=== PATIENT | female | born 1950 | race Caucasian/White ===

== ENCOUNTER → 2017-10-11 07:14 | Outpatient (CLI) | payer MEDICARE, SELFPAY ==
[2017-10-11 09:01] LABS: T4 Free Direct 1.49 ng/dL (0.76-1.46); Thyroid Stim Hormone (TSH) 1.59 uIU/mL (0.358-3.74)
[2017-10-12 10:08] LABS: T3 Total - Triiodothyronine 1.16 ng/mL (0.6-1.81)
== END ==
PROVIDERS: Family Provider Family Medicine; PCP Family Medicine; Visit Provider Family Medicine
DX: E05.00 Thyrotoxicosis with diffuse goiter without thyrotoxic crisis or storm (principal)
CPT/HCPCS: 36415; 84439; 84443; 84480

== ENCOUNTER → 2017-10-26 16:38 | Outpatient (CLI) | payer MEDICARE, SELFPAY ==
[2017-10-26 17:26] LABS: Absolute Neutrophil Count 2.4 X10^3/uL (2.0-7.7); Basophil# 0.04 X10^3/uL; Basophil% 0.7 % (0-1); Eosinophil# 0.13 X10^3/uL; Eosinophils% 2.3 % (0-5); Hematocrit 38.4 % (37-47); Hemoglobin 12.9 g/dl (12.0-15.0); Lymphocyte % 43.2 % (19-41); Mean Corp Hgb Conc 33.6 g/gl (32-36); Mean Corpuscular Hgb 30.6 pg (27.0-32.0); Mean Platelet Vol. 10.4 fl (6.2-12.0); Monocyte# 0.62 X10^3/uL; Monocyte% 11.2 % (0-10); Neutrophil # 2.36 X10^3/uL (2.7-7.7); Neutrophil % 42.6 % (47-70); POSITIVE COUNT NO; POSITIVE DIFFERENTIAL NO; POSITIVE MORPHOLOGY NO; Platelet Count 240 K/mm3 (150-450); RBC Distribution Width CV 11.8 % (11.6-14.6); RBC Distribution Width SD 38.4 fl (35.1-43.9); Red Blood Count 4.22 M/mm3 (4.2-5.4); White Blood Count 5.6 K/mm3 (4.4-11.0)
[2017-10-26 17:36] LABS: Erythrocyte Sedimentation Rate 9 mm/hr (0-30)
[2017-10-26 18:01] LABS: Vitamin D,25 Hydroxy 38.5 ng/mL (29.95-100.01)
[2017-10-26 18:19] LABS: ALB/GLOB Ratio 1.1 RATIO (0.9-2.4); AST(SGOT) 20 U/L (15-37); Alanine Aminotransfer ALT/SGPT 15 U/L (13-56); Albumin, Serum 3.8 g/dL (3.2-5.0); Alkaline Phosphatase 82 U/L (45-117); Anion Gap 9 (5-15); BUN 20 mg/dL (7-18); BUN/Creat Ratio 27.7 RATIO (10-20); CPK Total, Creatine Kinase 96 U/L (26-192); Calcium,Total 8.9 mg/dL (8.5-10.1); Chloride 107 mmol/L (98-107); Creatinine, Serum 0.72 mg/dL (0.55-1.02); EST Glomerular Filtration Rate 86 mL/min (>60); Est Glom Filt Rate - Afr Amer 104 mL/min (>60); Free T3 2.8 pg/mL (2.18-3.98); Globulin 3.6 g/dL (2.2-4.2); Glucose 83 mg/dL (74-106); Magnesium 2.1 mg/dL (1.6-2.6); Potassium 3.9 mmol/L (3.5-5.1); Protein, Total 7.4 g/dL (6.4-8.2); Sodium Level 139 mmol/L (136-145); T4 Free Direct 1.67 ng/dL (0.76-1.46); T4 Total, Thyroxin 15.1 ug/dL (4.8-13.9)
[2017-11-01 10:36] LABS: ANTINUCLEAR ANTIBODIES DIRECT Negative (Negative)
[2017-11-02 12:36] LABS: T3 Reverse 33.6 ng/dL (9.2-24.1)
== END ==
PROVIDERS: Visit Provider Family Medicine
DX: E05.00 Thyrotoxicosis with diffuse goiter without thyrotoxic crisis or storm (principal); R25.2 Cramp and spasm; R53.83 Other fatigue; R23.2 Flushing
CPT/HCPCS: 36415; 80053; 82306; 82550; 83735; 84436; 84439; 84443; 84480; 84481; 84482; 85025; 85652; 86038; 86225; 86235

== ENCOUNTER → 2018-08-07 10:10 | Outpatient (CLI) | payer MEDICARE, SELFPAY ==
[2018-08-07 12:46] LABS: Free T3 2.9 pg/mL (2.18-3.98); Thyroid Stim Hormone (TSH) 0.23 uIU/mL (0.358-3.74)
[2018-08-07 12:55] LABS: Color, Urine Straw (Yellow); Glucose, Dipstick Normal (Normal); Ketone-Dipstick Negative (Negative); Leukocyte Esterase-Dipstick 25 /ul (Negative); Nitrite-Dipstick Negative (Negative); Occult Blood-Urine 25 /ul (Negative); Protein-Dipstick Negative (Negative); Specific Gravity, Urine 1.005 (1.002-1.030); Urine Bilirubin Dipstick Negative (Negative); Urine Clarity Clear (Clear); Urine Urobilinogen Normal (Normal)
[2018-08-12 09:08] LABS: T3 Reverse 34.7 ng/dL (9.2-24.1)
== END ==
PROVIDERS: Family Provider Family Medicine; PCP Family Medicine; Visit Provider Family Medicine
DX: E03.9 Hypothyroidism, unspecified (principal); R30.0 Dysuria
CPT/HCPCS: 36415; 81002; 84439; 84443; 84481; 84482; 87077; 87086; 87088; 87186

== ENCOUNTER → 2018-11-04 | Outpatient (CLI) | payer MEDICARE, SELFPAY ==
[2018-11-04 17:59] LABS: Free T3 2.6 pg/mL (2.18-3.98); T4 Free Direct 1.65 ng/dL (0.76-1.46); Thyroid Stim Hormone (TSH) 0.08 uIU/mL (0.358-3.74)
[2018-11-10 13:37] LABS: T3 Reverse 36.9 ng/dL (9.2-24.1)
== END | disposition home or self-care (01) ==
PROVIDERS: Family Provider Family Medicine; PCP Family Medicine; Visit Provider Family Medicine
DX: E03.9 Hypothyroidism, unspecified (principal); Z86.39 Personal history of other endocrine, nutritional and metabolic disease
CPT/HCPCS: 36415; 84439; 84443; 84481; 84482

== ENCOUNTER → 2019-01-09 11:24 | Outpatient (CLI) | payer MEDICARE, SELFPAY ==
[2019-01-09 16:01] LABS: Free T3 2.3 pg/mL (2.18-3.98); T4 Free Direct 1.54 ng/dL (0.76-1.46); Thyroid Stim Hormone (TSH) 0.31 uIU/mL (0.358-3.74)
== END ==
LOC: LAB.FUTURE 11:25 → BFHLAB 06-09 10:56
PROVIDERS: Family Provider Family Medicine; PCP Family Medicine; Visit Provider Family Medicine
DX: E05.00 Thyrotoxicosis with diffuse goiter without thyrotoxic crisis or storm (principal)
CPT/HCPCS: 36415; 84439; 84443; 84481

== ENCOUNTER → 2019-03-21 10:42 | Outpatient (CLI) | payer MEDICARE, SELFPAY ==
[2019-03-21 13:06] LABS: Free T3 2.7 pg/mL (2.18-3.98); T4 Free Direct 1.45 ng/dL (0.76-1.46); Thyroid Stim Hormone (TSH) 1.17 uIU/mL (0.358-3.74)
== END ==
LOC: LAB.FUTURE 10:42 → BFHLAB 06-09 10:57
PROVIDERS: Family Provider Family Medicine; PCP Family Medicine; Visit Provider Family Medicine
DX: E05.00 Thyrotoxicosis with diffuse goiter without thyrotoxic crisis or storm (principal); E03.2 Hypothyroidism due to medicaments and other exogenous substances
CPT/HCPCS: 36415; 84439; 84443; 84481

== ENCOUNTER → 2019-06-19 10:41 | Outpatient (CLI) | payer MEDICARE, SELFPAY ==
[2019-06-19 13:34] LABS: ALB/GLOB Ratio 1.1 RATIO (0.9-2.4); AST(SGOT) 19 U/L (15-37); Alanine Aminotransfer ALT/SGPT 17 U/L (13-56); Alkaline Phosphatase 115 U/L (45-117); Anion Gap 7 (5-15); BUN 16 mg/dL (7-18); BUN/Creat Ratio 20.9 RATIO (10-20); Calcium,Total 9.7 mg/dL (8.5-10.1); Chloride 107 mmol/L (98-107); Creatinine, Serum 0.76 mg/dL (0.55-1.02); EST Glomerular Filtration Rate 80 mL/min (>60); Est Glom Filt Rate - Afr Amer 97 mL/min (>60); Free T3 2.5 pg/mL (2.18-3.98); Globulin 3.7 g/dL (2.2-4.2); Glucose 84 mg/dL (74-106); Magnesium 2.2 mg/dL (1.6-2.6); Potassium 3.7 mmol/L (3.5-5.1); Protein, Total 7.7 g/dL (6.4-8.2); Sodium Level 139 mmol/L (136-145); T4 Free Direct 1.62 ng/dL (0.76-1.46); Thyroid Stim Hormone (TSH) 1.36 uIU/mL (0.358-3.74)
[2019-06-24 16:17] LABS: T3 Reverse 30.2 ng/dL (9.2-24.1)
== END ==
PROVIDERS: Family Provider Family Medicine; PCP Family Medicine; Referring Provider Family Medicine; Visit Provider Family Medicine
DX: E03.9 Hypothyroidism, unspecified (principal); R25.2 Cramp and spasm; Z51.81 Encounter for therapeutic drug level monitoring
CPT/HCPCS: 36415; 80053; 83735; 84439; 84443; 84481; 84482

== ENCOUNTER → 2019-06-20 12:16 | Outpatient (CLI) | payer MEDICARE, SELFPAY ==
--- NOTE | 2019-06-20 12:19 | RAD_ITS ---
HISTORY: PAIN, NKI TECHNIQUE: Lumbar spine 7 views, including AP, bilateral oblique, coned-down lateral and lateral views of the lumbar spine in neutral, flexion and extension. Number of images including paperwork: 7 COMPARISON: None FINDINGS: VERTEBRAE: No acute fracture. VERTEBRAL ALIGNMENT: No traumatic subluxation. No evidence of instability on flexion and extension views. DISKS AND JOINTS: Disc heights are preserved. Facet arthropathy L3-S1. SOFT TISSUES: Vascular calcifications. RAD/L/S Spine Comp/w Bending Views IMPRESSION: No acute osseous abnormality. Facet arthropathy. at 0457 Reported and signed by: Ines Bowman MD Electronically Signed: Ines Bowman MD at 4:57 EST Tel , Service support ,
--- NOTE | 2019-06-20 12:20 | RAD_ITS ---
HISTORY: LEFT GROIN PAIN X1 MONTH, NKI ADDITIONAL HISTORY: None provided. TECHNIQUE: Left hip 2 views with AP pelvis Number of images including paperwork: 3 COMPARISON: None FINDINGS: BONES: No acute fracture. JOINTS: No subluxation. SOFT TISSUES: No distinct foreign body. RAD/HIP, UNI W/ Pelvis 2-3 Views IMPRESSION: No acute osseous abnormality. at 0348 Reported and signed by: Ines Bowman MD Electronically Signed: Ines Bowman MD at 3:48 EST Tel , Service support ,
== END ==
PROVIDERS: PCP Family Medicine; Referring Provider Family Medicine; Visit Provider Family Medicine
DX: M54.9 Dorsalgia, unspecified (principal); M25.552 Pain in left hip
CPT/HCPCS: 72114; 73502

== ENCOUNTER → 2019-11-10 09:54 | Outpatient (CLI) | payer MEDICARE, SELFPAY ==
[2019-11-10 12:30] LABS: Absolute Neutrophil Count 3.2 X10^3/uL (2.0-7.7); Basophil# 0.05 X10^3/uL; Basophil% 0.9 % (0-1); Eosinophil# 0.11 X10^3/uL; Hematocrit 41.3 % (37-47); Hemoglobin 13.7 g/dL (12.0-15.0); Lymphocyte % 30.7 % (19-41); Mean Corp Hgb Conc 33.2 g/dL (32-36); Mean Corpuscular Hgb 29.9 pg (27.0-32.0); Mean Corpuscular Volume 90.2 fL (81-99); Mean Platelet Vol. 9.5 fl (6.2-12.0); Monocyte# 0.51 X10^3/uL; Monocyte% 9.2 % (0-10); NRBC Flagged by Analyzer 0 % (0-5); Neutrophil # 3.15 X10^3/uL (2.7-7.7); Neutrophil % 56.8 % (47-70); Platelet Count 347 K/mm3 (150-450); RBC Distribution Width CV 11.7 % (11.6-14.6); RBC Distribution Width SD 37.9 fl (35.1-43.9); Red Blood Count 4.58 M/mm3 (4.2-5.4); White Blood Count 5.5 K/mm3 (4.4-11.0)
[2019-11-10 12:46] LABS: Vitamin B12 270 pg/mL (211-911)
[2019-11-10 12:47] LABS: ALB/GLOB Ratio 0.8 RATIO (0.9-2.4); AST(SGOT) 15 U/L (15-37); Alanine Aminotransfer ALT/SGPT 14 U/L (13-56); Albumin, Serum 3.4 g/dL (3.2-5.0); Alkaline Phosphatase 87 U/L (45-117); Anion Gap 7 (5-15); BUN 11 mg/dL (7-18); BUN/Creat Ratio 16.1 RATIO (10-20); Calcium,Total 9.1 mg/dL (8.5-10.1); Chloride 107 mmol/L (98-107); Creatinine, Serum 0.68 mg/dL (0.55-1.02); EST Glomerular Filtration Rate 91 mL/min (>60); Est Glom Filt Rate - Afr Amer 110 mL/min (>60); Free T3 2.3 pg/mL (2.18-3.98); Glucose 95 mg/dL (74-106); Magnesium 2.2 mg/dL (1.6-2.6); Potassium 3.8 mmol/L (3.5-5.1); Protein, Total 7.4 g/dL (6.4-8.2); Sodium Level 141 mmol/L (136-145); T4 Free Direct 1.58 ng/dL (0.76-1.46); Thyroid Stim Hormone (TSH) 0.54 uIU/mL (0.358-3.74)
== END ==
PROVIDERS: PCP Family Medicine; Visit Provider Family Medicine
DX: E05.00 Thyrotoxicosis with diffuse goiter without thyrotoxic crisis or storm (principal); E03.9 Hypothyroidism, unspecified; R25.2 Cramp and spasm; Z51.81 Encounter for therapeutic drug level monitoring
CPT/HCPCS: 36415; 80053; 82607; 83735; 84439; 84443; 84481; 84482; 85025

== ENCOUNTER 2020-12-28 12:14 | Observation (INO) | payer MEDICARE, SELFPAY ==
[2020-12-28] VITALS (17 sets, daily range): BP systolic 129–187; BP diastolic 71–105; PULSE 51–87; RESP 11–25; TEMP 36.1–37; O2SAT 94–100; BMI 25.3; BMI 24.9
--- NOTE | 2020-12-28 12:19 | CM.ED ---
DARWIN Note Referral Source: Stroke Alert Referral Reason: Stroke Alert SW responded to a stroke alert for patient. Patient's daughter was in the room with patient. Patient's daughter said that she is familiar with what is going as as I have worked in [employer]. Daughter said that patient had also retired from [employer]. SW offered emotional support to patient's daughter. Patient's daughter reports no needs. SW advised that this advertising writer remains available if needed. Plan: To be determined Lety CAMARA
--- NOTE | 2020-12-28 12:20 | EKG12_ITS ---
Test Reason : CVA Blood Pressure : / mmHG Vent. Rate : 056 BPM Atrial Rate : 056 BPM P-R Int : 166 ms QRS Dur : 100 ms QT Int : 456 ms P-R-T Axes : 047 006 014 degrees QTc Int : 440 ms Sinus bradycardia with sinus arrhythmia Otherwise normal ECG Confirmed by ALEXIS FRANKS, CORINNA ([id number]), desk editor UVALDO KRUSE ([id number]) on 12/30/2020 9:58:50 AM Referred By: FAYE Confirmed By:CORINNA ESPINOZA MD
--- NOTE | 2020-12-28 12:20 | RAD_ITS ---
STUDY: X-RAY CHEST REASON FOR EXAM: Female, 70 years old. Neuro deficit, acute, stroke suspected TECHNIQUE: Single AP portable view of the chest. COMPARISON: 02/20/2012 FINDINGS: The lungs are clear and expanded. There is no demonstrated pleural abnormality. Normal size heart. Normal mediastinum and ayaka. Normal visualized pulmonary arteries. Normal visualized aortic arch and descending thoracic aorta. Normal visualized thoracic spine. Normal visualized ribs, clavicles, and shoulders. There is no demonstrated abnormality of the visualized soft tissue structures of the upper abdomen. RAD/Chest 1 View IMPRESSION: Normal x-ray examination of the chest. Electronically Signed: Ever Singh MD at 14:22 EDT Tel , Service support ,
--- NOTE | 2020-12-28 12:20 | CT_ITS ---
We are attempting to reach an attending provider to discuss findings. An addendum with communication details will be sent when the communication is complete. STUDY: CT HEAD STROKE PROTOCOL W/O CONTRAST INJECTION REASON FOR EXAM: Female, 70 years old. Neuro deficit, acute, stroke suspected RADIATION DOSAGE (If Supplied By Facility): CTDIvol = ( ) mGy, DLP = ( ) mGycm TECHNIQUE: Transaxial CT imaging of the brain was performed without administration of intravenous contrast material. Individualized dose optimization techniques were used for this CT. COMPARISON: No relevant priors. FINDINGS: Normal soft tissue structures. Normal calvarium. There is mild cerebral atrophy with widening of the extra-axial spaces and ventricular dilatation. Normal white matter tracts of the cerebral hemispheres. Normal basal ganglia and thalami. Normal brainstem. Normal cerebellum. There is no intracranial hemorrhage. There are no findings of an acute ischemic infarction. Normal visualized paranasal sinuses. ASPECT score: CT/STROKE Brain/Head without Cont IMPRESSION: Chronic involutional changes of the brain. Electronically Signed: Ever Singh MD at 12:33 EDT Tel , Service support ,
--- NOTE | 2020-12-28 12:24 | CT_ITS ---
We are attempting to reach an attending provider to discuss findings. An addendum with communication details will be sent when the communication is complete. STUDY: CTA HEAD AND NECK WITH CONTRAST REASON FOR EXAM: Female, 70 years old. left arm weakness RADIATION DOSAGE (If Supplied By Facility): CTDIvol = ( 22.97 ) mGy, DLP = ( 654.01 ) mGycm TECHNIQUE: CT angiography was performed with a multi-detector CT scanner. Data acquisition was obtained from the skull base through the vertex following intravenous administration of IV 100mL Isovue-[id number]. MIP images were reconstructed from the axial data set. Post-processing of the angiographic images was performed, with multiplanar reformation and 3D reconstruction. Individualized dose optimization techniques were used for this CT. COMPARISON: No relevant priors. FINDINGS: Normal bilateral petrous carotid arteries. Normal right cavernous carotid artery with a normal supraclinoid bifurcation. Normal left cavernous carotid artery with a normal supraclinoid bifurcation. Normal right A1 segments of the anterior cerebral artery. Normal left A1 segments of the anterior cerebral artery. Normal intact anterior communicating artery (ACOM). Normal bilateral A2 segments of the anterior cerebral arteries. Normal right M1 and M2 segments of the middle cerebral arteries, with a normal M1 bifurcation. Normal left M1 and M2 segments of the middle cerebral arteries, with a normal M1 bifurcation. Normal right posterior communicating artery (PCOM). Normal left posterior communicating artery (PCOM). Normal bilateral vertebral arteries. Normal basilar artery with a normal basilar bifurcation. The visualized bilateral superior cerebellar (SCA) arteries are normal. Normal bilateral P1, P2 and visualized P3 segments of the posterior cerebral arteries. There is no demonstrated aneurysm of the teller of Lerma. There is no demonstrated abnormality of the visualized brain. AORTIC ARCH: There is a bovine origin of the great vessels arising from the aortic arch with a common origin of the brachiocephalic and left common carotid artery. Normal origin of the left subclavian artery. Normal origins of the brachiocephalic, left common carotid, and left subclavian arteries. RIGHT CAROTID ARTERIES: Normal right common carotid artery (CCA). There is mild atherosclerotic plaque formation with minimal narrowing of the right carotid bulb. There is mild atherosclerotic plaque formation of the origin of the right internal carotid artery with less than 50% cross sectional diameter stenosis. Normal visualized cervical portion of the right internal carotid artery. Normal origin of the right external carotid artery (ECA). LEFT CAROTID ARTERIES: Normal left common carotid artery (CCA). There is mild atherosclerotic plaque formation with minimal narrowing of the left carotid bulb. There is mild atherosclerotic plaque formation of the origin of the left internal carotid artery with less than 50% cross sectional diameter stenosis. Normal visualized cervical portion of the left internal carotid artery. Normal origin of the left external carotid artery (ECA). VERTEBRAL ARTERIES: Normal bilateral vertebral arteries. CT/STROKE CTA Head AND Neck W/Con IMPRESSION: 1. Normal CTA Head with contrast. 2. Mild (40%) right carotid stenosis. 3. Mild (20%) left carotid stenosis. 4. Patent vertebral arteries bilaterally. 5. Bovine arch. Electronically Signed: Ever Singh MD at 12:56 EDT Tel , Service support ,
[2020-12-28 12:25] LABS: Bedside Glucose 110 mg/dL (70-110)
[2020-12-28 12:33] LABS: Absolute Lymphocyte Count 1.67 X10^3/uL (0.83-4.51); Absolute Neutrophil Count 2.3 X10^3/uL (2.0-7.7); Basophil# 0.05 X10^3/uL; Basophil% 1.1 % (0-1); Eosinophils% 2.1 % (0-5); Hematocrit 43.6 % (37-47); Hemoglobin 14.6 g/dL (12.0-15.0); Lymphocyte # 1.67 X10^3/ul (0.83-4.51); Lymphocyte % 35.2 % (19-41); Mean Corp Hgb Conc 33.5 g/dL (32-36); Mean Corpuscular Hgb 30.2 pg (27.0-32.0); Mean Corpuscular Volume 90.1 fL (81-99); Mean Platelet Vol. 9.7 fl (6.2-12.0); Monocyte# 0.63 X10^3/uL; Monocyte% 13.3 % (0-10); NRBC Flagged by Analyzer 0 % (0-5); Neutrophil % 48.3 % (47-70); Platelet Count 276 K/mm3 (150-450); RBC Distribution Width SD 39.6 fl (35.1-43.9); Red Blood Count 4.84 M/mm3 (4.2-5.4); White Blood Count 4.8 K/mm3 (4.4-11.0)
[2020-12-28 12:48] LABS: International Normalized Ratio 1.1; Prothrombin Time (Protime)PT. 13.7 SECONDS (11.7-14.9)
[2020-12-28 12:49] LABS: Partial Thromboplast Time 30.1 Seconds (24.1-36.2)
[2020-12-28 12:50] LABS: Anion Gap 7 (5-15); BUN 11 mg/dL (7-18); BUN/Creat Ratio 16.5 RATIO (10-20); Calcium,Total 9.3 mg/dL (8.5-10.1); Chloride 105 mmol/L (98-107); Creatinine, Serum 0.67 mg/dL (0.55-1.02); EST Glomerular Filtration Rate 93 mL/min (>60); Est Glom Filt Rate - Afr Amer 113 mL/min (>60); Estimated Creatinine Clearance 47.78 ml/min; Glucose 98 mg/dL (74-106); Potassium 3.6 mmol/L (3.5-5.1); Sodium Level 138 mmol/L (136-145); Troponin-I HS 78.4 pg/mL (3.0-53.7)
--- NOTE | 2020-12-28 12:51 | ED.RN ---
troponin 78.4. aware
[2020-12-28] MEDS: Aspirin 81 MG TAB.CHEW 324 MG PO (13:06)
--- NOTE | 2020-12-28 14:36 | ECHOD_ITS ---
Reason For Study: TIA/CVA Procedure This was a 2D Doppler, Color Flow transthoracic echocardiogram. Bubble study performed. Exam performed in department. Left Ventricle Normal LV size. Left ventricular systolic function is normal. The estimated ejection fraction is 65 %. No evidence for diastolic dysfunction. No regional wall motion abnormalities noted. Right Ventricle Normal RV size. Normal systolic function. Atria Normal left atrium. Normal right atrium. No doppler evidence for ASD. Bubble contrast study negative for right to left interatrial shunt. Mitral Valve There is no mitral annular calcification. Normal mitral valve. Trivial mitral valve insufficiency. Tricuspid Valve Normal tricuspid valve. Mild tricuspid valve insufficiency. Right ventricular systolic pressure estimated to be 28 mmHg. Aortic Valve Trisinus/trileaflet aortic valve. Mild focal aortic valve calcification. Pulmonic Valve The pulmonic valve is not well visualized. Great Vessels The aortic root is not well visualized. Pericardium/Pleural No pericardial effusion. Medication Performed a rapid injection of agitated mix of 9 cc saline and 1cc air to assess for atrial septal defect. MMode/2D Measurements & Calculations LVIDd: 4.2 cm IVSd: 0.88 cm LA dimension: 3.3 cm LVIDs: 3.1 cm LVPWd: 0.86 cm RVDd: 3.1 cm FS: 26.0 % LAV(MOD-bp): 35.5 ml LA A4 area: 11.9 cm2 RA A4 area: 10.5 cm2 LAV(MOD-bp) Indexed: 20.9 ml/m2 LAV(MOD-sp2): 43.7 ml LAV(MOD-sp4): 24.9 ml Time Measurements MV dec time: 0.38 sec Doppler Measurements & Calculations MV E max navin: 37.2 cm/sec Lat Peak E' Navin: 7.9 cm/sec Med Peak E' Navin: 5.4 cm/sec MV A max navin: 76.8 cm/sec E/E' lat: 4.7 E/E' med: 6.9 MV E/A: 0.48 MV V2 max: 78.2 cm/sec MV P1/2t max navin: 41.5 cm/sec Ao V2 max: 103.5 cm/sec MV max P.4 mmHg MV P1/2t: 143.9 msec Ao max P.3 mmHg MV V2 mean: 35.3 cm/sec MV dec slope: 84.5 cm/sec2 MV mean P.60 mmHg MV V2 VTI: 22.5 cm MVA(P1/2t): 1.5 cm2 LV V1 max: 84.4 cm/sec PA V2 max: 87.6 cm/sec TR max navin: 250.8 cm/sec LV V1 max P.8 mmHg TR max P.2 mmHg ECHO/Echo Complete Interpretation Summary Left ventricular systolic function is normal. The estimated ejection fraction is 65 %. Trivial mitral valve insufficiency. Mild tricuspid valve insufficiency. Mild focal aortic valve calcification. Right ventricular systolic pressure estimated to be 28 mmHg. No evidence for diastolic dysfunction. Bubble contrast study negative for right to left interatrial shunt. Ordering Physician: Taz Walsh Referring Physician: Leidy Beyer Performed By: Darío Dumont RCS
--- NOTE | 2020-12-28 14:36 | MRI_ITS ---
STUDY: MRI BRAIN WITHOUT CONTRAST REASON FOR EXAM: Female, 70 years old. CVA TECHNIQUE: Standardized multiplanar fat and water weighted pulse sequences were obtained. COMPARISON: CT earlier today FINDINGS: There is mild cerebral atrophy with widening of the extra-axial spaces and ventricular dilatation. There are a limited number of small white matter hyperintensities, distributed throughout the deep white matter tracts of the cerebral hemispheres, consistent with mild chronic white matter ischemic changes. There is no evidence for recent intracranial ischemia or other cause of cytotoxic edema on diffusion weighted imaging (DWI). Normal T2* images of the brain without demonstrated susceptibility artifact. There is no demonstrated hemosiderin stain. Normal bilateral basal ganglia. Normal thalami. There is no extra-axial fluid accumulation. Normal flow voids within the major intracranial circulation suggesting patency by spin echo criteria. Normal sella turcica, pituitary gland, infundibular stalk, optic chiasm and hypothalamus. Normal tectal plate and pineal gland. Normal midbrain, lebron and medulla. Normal cerebellum. Normal basal cisterns. Normal bilateral temporal bones. Normal bilateral internal auditory canals. No demonstrated orbital abnormality, within the constraints of a routine brain study. Normal visualized paranasal sinuses. Normal calvarium and skull base. Normal visualized soft tissue structures. Normal visualized upper cervical spine. MRI/Brain without Contrast IMPRESSION: Involutional changes of the brain, as described above. No acute infarct. Electronically Signed: Ever Singh MD at 16:48 EDT Tel , Service support ,
--- NOTE | 2020-12-28 14:40 | PCM.HP.STD ---
HPI - General General Date of Admission: 12/28/20 Date of Service: 12/28/20 Chief Complaint: Left-sided numbness HPI Narrative AMOL RUBIO, is a 70 F who presents with left-sided numbness. Patient symptoms started a day prior to her admission. Numbness was located in the as well as lower extremity. In addition to numbness patient did experience subjective weakness involving the left arm as well as pain. She also did complain of pain in the neck radiating to the jaw. In view of the persistent nature of her symptoms she presented to the ED subsequently admitted to monitored bed for further management [facility] Medical History (Updated 12/28/20 @ 15:[address] Taz Walsh MD) Arrhythmia Former smoker Hypothyroidism Home Medications clonazepam 12/28/20 [History Last Taken Unknown] ibuprofen 400 mg PO BID PRN 12/28/20 [History Last Taken 12/27/20] levothyroxine 12/28/20 [History Last Taken Unknown] levothyroxine 12/28/20 [History Last Taken Unknown] Allergy/AdvReac Type Severity Reaction Status Date / Time Penicillins [PCN] Allergy Swelling Verified 12/28/20 12:27 no significant family history Surgical History History of appendectomy History of hysterectomy Social History Smoking Status: Former smoker ROS ROS Narrative GENERAL: denies fever, chills, night sweats, HEENT: denies headache, sinus congestion, RESPIRATORY: denies cough, sputum production, CARDIAC: denies chest pain, palpitations, orthopnea, GASTROINTESTINAL: denies abdominal pain, nausea, GENITOURINARY: denies dysuria, urgency, frequency, EXTREMITY: denies swelling MUSCULOSKELETAL: denies current joint pain or tenderness NEUROLOGIC: numbness, weakness, HEMATOLOGIC: denies easy bruising and/or hemorrhage INTEGUMENT: denies rashes PSYCHIATRIC: denies suicidal or homicidal ideation Vital Signs Vital Signs Vital Signs: 12/28/20 12:15 12/28/20 12:20 12/28/20 12:25 Temperature 98.6 F Temperature Source Oral Pulse Rate 82 82 82 Respiratory Rate 16 16 16 Blood Pressure 182/91 H 182/91 H 182/91 H Blood Pressure Mean 121 121 121 Pulse Ox 98 98 98 Oxygen Delivery Method Room Air Room Air Room Air Oxygen Flow Rate (L/min) 12/28/20 12:50 12/28/20 13:23 12/28/20 13:33 Temperature Temperature Source Pulse Rate 76 61 60 Respiratory Rate 25 H 20 H 16 Blood Pressure 173/73 H 154/87 H 152/91 H Blood Pressure Mean 106 109 111 Pulse Ox 96 96 98 Oxygen Delivery Method Nasal Cannula Nasal Cannula Nasal Cannula Oxygen Flow Rate (L/min) 2 2 2 12/28/20 14:00 12/28/20 14:08 Temperature Temperature Source Pulse Rate 56 L 61 Respiratory Rate 11 L 16 Blood Pressure 169/90 H 169/90 H Blood Pressure Mean 116 116 Pulse Ox 96 95 Oxygen Delivery Method Nasal Cannula Nasal Cannula Oxygen Flow Rate (L/min) 2 2 Weight Weight: 69 kg Body Mass Index (BMI) 25.3 Physical Exam Narrative GENERAL: cooperative HEENT: Atraumatic; EYES; Anicteric, Normal Conjunctiva NECK; supple, normal thyroid, RESPIRATORY: Diminished to auscultation CARDIOVASCULAR: Regular S1 S2, GI: soft, normoactive bowel sounds, : No Renal angle tenderness; EXTREMITIES: No edema, no clubbing, MUSCULOSKELETAL: no muscle waisting NEURO: Awake; no lateralizing signs. SKIN: No Rash PSYCH; Flat affect Results Lab / Micro Data Result Diagrams: 12/28/20 12:20 12/28/20 12:20 Labs: Laboratory Results - last 24 hr 12/28/20 12:20: WBC 4.8, RBC 4.84, Hgb 14.6, Hct 43.6, MCV 90.1, MCH 30.2, MCHC 33.5, RDW Std Deviation 39.6, RDW Coeff of Ruthie 12.0, Plt Count 276, MPV 9.7, Immature Gran % (Auto) 0.000, Neut % (Auto) 48.3, Lymph % (Auto) 35.2, Victoria % (Auto) 13.3 H, Eos % (Auto) 2.1, Baso % (Auto) 1.1 H, Absolute Neuts (auto) 2.3, Absolute Lymphs (auto) 1.67, Nucleated RBC % 0 12/28/20 12:20: Sodium 138, Potassium 3.6, Chloride 105, Carbon Dioxide 26.0, Anion Gap 7, BUN 11, Creatinine 0.67, Estim Creat Clear Calc 47.78, Est GFR (MDRD) Af Amer 113, Est GFR (MDRD) Non-Af 93, BUN/Creatinine Ratio 16.5, Glucose 98, Calcium 9.3, Troponin I High Sens 78.4 H* 12/28/20 12:20: POC Glucose 110 12/28/20 12:30: PT 13.7, INR 1.1, APTT 30.[address] 12/28/20 12:20 IMPRESSION: Chronic involutional changes of the brain. Electronically Signed: Ever Singh MD at 12:33 EDT Tel , Service support , ADDENDUM: 12/28/20 1241 IMPRESSION: Chronic involutional changes of the brain. N.B. : The above Results were Read Back by Ever Singh MD to Vargas Robert DO, and understanding confirmed on 12/28/2020 12:34:44 (ET). Electronically Signed: Ever Singh MD at 12:33 EDT Tel , Service support , Chest X-Ray 12/28/20 12:20 IMPRESSION: Normal x-ray examination of the chest. Electronically Signed: Ever Singh MD at 14:22 EDT Tel , Service support , Head/Neck CTA 12/28/20 12:24 IMPRESSION: 1. Normal CTA Head with contrast. 2. Mild (40%) right carotid stenosis. 3. Mild (20%) left carotid stenosis. 4. Patent vertebral arteries bilaterally. 5. Bovine arch. Electronically Signed: Ever Singh MD at 12:56 EDT Tel , Service support , ADDENDUM: 12/28/20 1304 IMPRESSION: 1. Normal CTA Head with contrast. 2. Mild (40%) right carotid stenosis. 3. Mild (20%) left carotid stenosis. 4. Patent vertebral arteries bilaterally. 5. Bovine arch. N.B. : The above Results were Read Back by Ever Singh MD to Vargas Robert DO, and understanding confirmed on 12/28/2020 12:57:30 (ET). Electronically Signed: Ever Singh MD at 12:56 EDT Tel , Service support , Assessment & Plan Assessment/Plan (1) Arm paresthesia, left: (2) Hypothyroidism: PLAN: Patient is a 70-year-old female presented with paresthesias involving the left upper and lower extremity as well as neck pain 1. Left-sided paresthesias ?Patient has been admitted to monitored bed where she is currently undergoing evaluation for possible CVA. As part of a management patient was placed on every 4 neurochecks ordered MRI of the brain without contrast and a 2D echo ordered. If CVA is confirmed we will consult neurology 2. Left-sided neck pain with elevated troponin ?Patient has been admitted to a monitored bed subsequent evaluation with serial cardiac enzymes ordered as well as EKG 3. Hypothyroidism ?Patient is on levothyroxine did continue 4. Elevated blood pressure ?With a suspicion of possible CVA patient was not placed on any antihypertensives we will continue to monitor closely 5. DVT prophylaxis ?Lovenox Charges/Coding Visit Charges OBSV E&M: 43293 Initial observation care L3
--- NOTE | 2020-12-28 15:02 | EDS_ITS ---
HPI History of Present Illness Chief Complaint: Neuro S/Sx Narrative Narrative: 70-year-old female presenting for evaluation of left arm and leg weakness as well as numbness. Patient states onset of this was about 6 PM last evening. She states it started in her fingers of the left hand and over the course of the night and this morning it had increased to where she felt more numbness and weakness in the left arm and now is going into the left leg. She was at urgent care and when she stood up to try to be evaluated she fell into the physician because her leg was so weak. She was sent to the ED for evaluation. Patient denies head injury or LOC today. She is not on any blood thinners. Patient states she has no history of stroke or TIA. [facility] Medical History Arrhythmia Former smoker Hypothyroidism Home Medications clonazepam 1 - 2 mg PO QHS 12/28/20 [History Last Taken 12/27/20] ibuprofen 400 mg PO BID PRN 12/28/20 [History Last Taken 12/27/20] levothyroxine 50 mcg PO SANCHEZ 12/28/20 [History Last Taken 12/26/20] levothyroxine 88 mcg PO MOTUWETHFRSA 12/28/20 [History Last Taken 12/27/20] Allergy/AdvReac Type Severity Reaction Status Date / Time Penicillins [PCN] Allergy Swelling Verified 12/28/20 12:27 Surgical History History of appendectomy History of hysterectomy Social History Smoking Status: Former smoker ROS ROS ED Constitutional Constitutional ED: Denies chills, fever(s) or sweats Eyes Eyes: Denies blurry vision or change in vision ENT ENT ED: Denies ear pain, rhinorrhea or sore throat Cardiovascular Cardiovascular: Denies chest pain, palpitations or racing heartbeat Respiratory/Chest Respiratory/Chest: Denies cough, dyspnea or sputum Gastrointestinal Gastrointestinal: Denies abdominal pain, constipation, diarrhea or vomiting Genitourinary Genitourinary ED: Denies dysuria, hematuria or urinary frequency Musculoskeletal Musculoskeletal: Denies arthralgias, myalgias or neck pain Integumentary Denies abscess, Abrasions or rash Neurologic Neurologic: Reports headache(s), paresthesias, weakness and other Details: Headache with left arm and leg weakness and paresthesias Psychiatric Psychiatric: Denies anxiety, depression, suicidal ideation or suicidal thoughts Endocrine Endocrinology: Denies polydipsia or polyuria EXAM Physical Exam Const Vital Signs: 12/28/20 12:15 12/28/20 12:20 12/28/20 12:25 Temperature 98.6 F Temperature Source Oral Pulse Rate 82 82 82 Respiratory Rate 16 16 16 Blood Pressure 182/91 H 182/91 H 182/91 H Blood Pressure Mean 121 121 121 Pulse Ox 98 98 98 Oxygen Delivery Method Room Air Room Air Room Air Oxygen Flow Rate (L/min) 12/28/20 12:50 12/28/20 13:23 12/28/20 13:33 Temperature Temperature Source Pulse Rate 76 61 60 Respiratory Rate 25 H 20 H 16 Blood Pressure 173/73 H 154/87 H 152/91 H Blood Pressure Mean 106 109 111 Pulse Ox 96 96 98 Oxygen Delivery Method Nasal Cannula Nasal Cannula Nasal Cannula Oxygen Flow Rate (L/min) 2 2 2 12/28/20 14:00 12/28/20 14:08 Temperature Temperature Source Pulse Rate 56 L 61 Respiratory Rate 11 L 16 Blood Pressure 169/90 H 169/90 H Blood Pressure Mean 116 116 Pulse Ox 96 95 Oxygen Delivery Method Nasal Cannula Nasal Cannula Oxygen Flow Rate (L/min) 2 2 Negative for well nourished General Appearance ED: NAD HEENT Reports moist mucous membranes atraumatic Eyes PERRL and EOMs intact bilaterally Resp normal respiratory effort and clear to auscultation bilaterally Cardio Rate: regular rate Rhythm: regular rhythm GI normal to inspection, nondistended, normoactive bowel sounds Extremity normal to inspection General Extremety ED: Negative for deformity or tenderness General Extremity: Negative for deformity Neuro oriented x3 and CN's II-XII intact bilaterally Neuro Narrative: NIH equals 3 Sensorium / Orientation: alert Psych mental status grossly normal Skin Lesions: no lesions Rashes: no rashes STROKE Vital Signs/Narrative: Vital Signs Temp Pulse Resp BP Pulse Ox 12/28/20 14:08 61 16 169/90 H 95 12/28/20 14:00 56 L 11 L 169/90 H 96 12/28/20 13:33 60 16 152/91 H 98 12/28/20 13:23 61 20 H 154/87 H 96 12/28/20 12:50 76 25 H 173/73 H 96 12/28/20 12:25 82 16 182/91 H 98 12/28/20 12:20 82 16 182/91 H 98 12/28/20 12:15 98.6 F 82 16 182/91 H 98 MDM MDM MDM Narrative Medical decision making narrative: Patient evaluated on arrival for strokelike symptoms. She is having left arm and leg weakness however she is able to hold these up off of the bed. She states that her left shoulder/neck also hurts. This has been periodic pain. She denies any chest pain. Patient has decreased sensation in the left leg throughout as well as the left arm throughout. Cranial nerves appear to be intact. She does not have any sensory deficits in the neck and face. Her blood work was fairly unremarkable with exception of an elevated troponin at 78.4. I did reassess the patient to see if she had been having any chest pain at all she could describe to me with intermittent left- sided neck pain. She does not have lightheadedness or dizziness. Her EKG shows sinus bradycardia at [address] elevation, depression, dysrhythmia on my interpretation. Chest x-ray on my interpretation shows no acute cardiopulmonary process and the radiologist does agree. CT brain and CTA head and neck did not show any acute findings other than some carotid stenosis of 40% on the right and 20% on the left. Patient was given aspirin. [facility] did beam in and felt the patient was not a TPA candidate given the time of onset and the low NIH stroke scale score. Pulse findings were discussed with the patient and she is amenable to be admitted to the hospital for stroke work-up. I did discuss this with the hospitalist stated that the troponin was elevated however she has been denying chest pain but she does not have any EKG findings which suggest [place]. Patient admitted in stable condition. Impression: 1. Elevated troponin 2. CVA Lab Data Attestation: I reviewed the patient's lab results. Labs: Laboratory Results - last 24 hr 12/28/20 12/28/20 12/28/20 12:20 12:20 12:20 WBC 4.8 RBC 4.84 Hgb 14.6 Hct 43.6 MCV 90.1 MCH 30.2 MCHC 33.5 RDW Std Deviation 39.6 RDW Coeff of Ruthie 12.0 Plt Count 276 MPV 9.7 Immature Gran % (Auto) 0.000 Neut % (Auto) 48.3 Lymph % (Auto) 35.2 [place] % (Auto) 13.3 H Eos % (Auto) 2.1 Baso % (Auto) 1.1 H Absolute Neuts (auto) 2.3 Absolute Lymphs (auto) 1.67 Nucleated RBC % 0 PT INR APTT Sodium 138 Potassium 3.6 Chloride 105 Carbon Dioxide 26.0 Anion Gap 7 BUN 11 Creatinine 0.67 Estim Creat Clear Calc 47.78 Est GFR (MDRD) Af Amer 113 Est GFR (MDRD) Non-Af 93 BUN/Creatinine Ratio 16.5 Glucose 98 Calcium 9.3 Troponin I High Sens 78.4 H* POC Glucose 110 12/28/20 12:30 WBC RBC Hgb Hct MCV MCH MCHC RDW Std Deviation RDW Coeff of Ruthie Plt Count MPV Immature Gran % (Auto) Neut % (Auto) Lymph % (Auto) [place] % (Auto) Eos % (Auto) Baso % (Auto) Absolute Neuts (auto) Absolute Lymphs (auto) Nucleated RBC % PT 13.7 INR 1.1 APTT 30.1 Sodium Potassium Chloride Carbon Dioxide Anion Gap BUN Creatinine Estim Creat Clear Calc Est GFR (MDRD) Af Amer Est GFR (MDRD) Non-Af BUN/Creatinine Ratio Glucose Calcium Troponin I High Sens POC Glucose Radiography Diagnostic Testing: Radiology Impression Brain CT 12/28/20 12:20 IMPRESSION: Chronic involutional changes of the brain. Electronically Signed: Ever Singh MD at 12:33 EDT Tel , Service support , ADDENDUM: 12/28/20 1241 IMPRESSION: Chronic involutional changes of the brain. N.B. : The above Results were Read Back by Ever Singh MD to Vargas Robert DO, and understanding confirmed on 12/28/2020 12:34:44 (ET). Electronically Signed: Ever Singh MD at 12:33 EDT Tel , Service support , Chest X-Ray 12/28/20 12:20 IMPRESSION: Normal x-ray examination of the chest. Electronically Signed: Ever Singh MD at 14:22 EDT Tel , Service support , Head/Neck CTA 12/28/20 12:24 IMPRESSION: 1. Normal CTA Head with contrast. 2. Mild (40%) right carotid stenosis. 3. Mild (20%) left carotid stenosis. 4. Patent vertebral arteries bilaterally. 5. Bovine arch. Electronically Signed: Ever Singh MD at 12:56 EDT Tel , Service support , ADDENDUM: 12/28/20 1304 IMPRESSION: 1. Normal CTA Head with contrast. 2. Mild (40%) right carotid stenosis. 3. Mild (20%) left carotid stenosis. 4. Patent vertebral arteries bilaterally. 5. Bovine arch. N.B. : The above Results were Read Back by Ever Singh MD to Vargas Robert DO, and understanding confirmed on 12/28/2020 12:57:30 (ET). Electronically Signed: Ever Singh MD at 12:56 EDT Tel , Service support , Discharge Plan Triage Chief Complaint: Neuro S/Sx ED Provider: Chaim Robert Dx/Rx/DC Orders Primary Care Provider: Leidy Beyer
--- NOTE | 2020-12-28 15:04 | MRI_ITS ---
STUDY: MRI CERVICAL SPINE WITHOUT CONTRAST REASON FOR EXAM: Female, 70 years old. Cervical radiculopathy TECHNIQUE: Standardized fat and water weighted pulse sequences were obtained in the sagittal and axial planes. COMPARISON: None FINDINGS: Normal foramen magnum and brainstem-cervical cord junction. Normal craniovertebral junction. Normal anterior atlantoaxial articulation. Normal odontoid process. Normal cervical lordosis. Normal vertebral bodies and posterior osseous elements. C2-3: Normal endplates. Normal disc height, signal and morphology. Normal central canal and intervertebral neural foramina. C3-4: Normal endplates. Normal disc height, signal and morphology. Normal central canal and intervertebral neural foramina. C4-5: Mild broad disc osteophyte complex produces mild spinal stenosis and mild bilateral neural foraminal stenosis. C5-6: Mild broad disc osteophyte complex produces mild spinal stenosis but no neural foraminal stenosis. C6-7: Mild broad disc osteophyte complex produces mild spinal stenosis but no neural foraminal stenosis. C7-T1: Normal endplates. Normal disc height, signal and morphology. Normal central canal and intervertebral neural foramina. Normal cervical cord. Normal visualized soft tissue structures. MRI/Spine Cervical (Routine) IMPRESSION: Multilevel degenerative changes, as described above. Electronically Signed: Ever Singh MD at 16:50 EDT Tel , Service support ,
--- NOTE | 2020-12-28 16:29 | EKG12_ITS ---
Test Reason : ILLNESS Blood Pressure : / mmHG Vent. Rate : 051 BPM Atrial Rate : 051 BPM P-R Int : 178 ms QRS Dur : 098 ms QT Int : 474 ms P-R-T Axes : 049 024 013 degrees QTc Int : 436 ms Sinus bradycardia Otherwise normal ECG No previous ECGs available Confirmed by WARREN FRANKS, COLLIN ([id number]), online editor UVALDO KRUSE ([id number]) on 01/03/2021 10:39:49 AM Referred By: HOSP Confirmed By:KENNY KELLEY MD
[2020-12-28] MEDS: 0.9% Normal Saline 1,000 ML 125 ML IV (17:35)
[2020-12-28 17:47] LABS: AST(SGOT) 24 U/L (15-37); Alanine Aminotransfer ALT/SGPT 20 U/L (13-56); Albumin, Serum 3.9 g/dL (3.2-5.0); Alkaline Phosphatase 75 U/L (45-117); Bilirubin, Direct 0.19 mg/dL (0.00-0.30); Globulin 3.7 g/dL (2.2-4.2); Protein, Total 7.6 g/dL (6.4-8.2); Thyroid Stim Hormone (TSH) 1.03 uIU/mL (0.358-3.74); Troponin-I HS 78.9 pg/mL (3.0-53.7)
[2020-12-28] MEDS: hydroCHLOROthiazide 25 MG Tablet PO (18:18)
[2020-12-28] MEDS: amLODIPine 10 MG Tablet PO (18:18)
[2020-12-28] MEDS: Levothyroxine 88 MCG Tablet PO (18:18)
[2020-12-28 19:38] LABS: Troponin-I HS 75.9 pg/mL (3.0-53.7)
[2020-12-28] MEDS: clonazePAM 1 MG Tablet PO (21:54)
[2020-12-28] MEDS: hydrALAZINE 20 MG/ML Vial 10 MG IV (22:02)
[2020-12-28] MEDS: Acetaminophen 325 MG Tablet 650 MG PO (23:50)
--- NOTE | 2020-12-29 00:17 | NURSING ---
Called Bing Bejarano CNP regarding pt request to have pulse ox and Iv fluids Dc'd. orders received.
--- NOTE | 2020-12-29 02:42 | NURSING ---
Pt voiced c/o of restless legs states the dosage for her klonopin is not ordered correctly and she takes 2 mg total in divided doses at night. Sent message to Dr Waldrop regarding pt's complaints. Awaiting response.
--- NOTE | 2020-12-29 02:59 | NURSING ---
Dr Olea was notified of pt c/o restless legs. Order received.
[2020-12-29 03:00] VITALS: PULSE 57
[2020-12-29] MEDS: clonazePAM 1 MG Tablet PO (03:17)
[2020-12-29 03:25] VITALS: BP 115/58; PULSE 78; RESP 18; TEMP 36.6; O2SAT 92
[2020-12-29 04:47] LABS: Absolute Lymphocyte Count 1.55 X10^3/uL (0.83-4.51); Absolute Neutrophil Count 4.1 X10^3/uL (2.0-7.7); Basophil# 0.05 X10^3/uL; Basophil% 0.8 % (0-1); Eosinophil# 0.09 X10^3/uL; Eosinophils% 1.4 % (0-5); Hemoglobin 14.8 g/dL (12.0-15.0); Lymphocyte # 1.55 X10^3/ul (0.83-4.51); Lymphocyte % 24.3 % (19-41); Mean Corp Hgb Conc 33.6 g/dL (32-36); Mean Corpuscular Hgb 29.8 pg (27.0-32.0); Mean Corpuscular Volume 88.5 fL (81-99); Mean Platelet Vol. 9.8 fl (6.2-12.0); Monocyte# 0.61 X10^3/uL; Monocyte% 9.5 % (0-10); NRBC Flagged by Analyzer 0 % (0-5); Neutrophil # 4.09 X10^3/uL (2.7-7.7); Platelet Count 269 K/mm3 (150-450); RBC Distribution Width CV 11.9 % (11.6-14.6); RBC Distribution Width SD 38.5 fl (35.1-43.9); Red Blood Count 4.97 M/mm3 (4.2-5.4); White Blood Count 6.4 K/mm3 (4.4-11.0)
[2020-12-29 05:16] LABS: Cholesterol 270 mg/dL (200); High Density Lipoprotein 54 mg/dL; Triglycerides 121 mg/dL; Very Low Density Lipoprotein 24 mg/dL (5-40)
[2020-12-29] MEDS: Levothyroxine 88 MCG Tablet PO (06:18)
[2020-12-29 07:08] VITALS: PULSE 76
[2020-12-29 08:08] VITALS: O2SAT 91
[2020-12-29 08:55] VITALS: BP 120/62; PULSE 69; RESP 16; TEMP 36.5; O2SAT 96
--- NOTE | 2020-12-29 09:25 | CASEMGMT ---
SW completed a PHQ 9 with patient as she may have had a TIA. She scored a 0 which indicates no depression. She denied need for any resources or for Stroke support group. Tonie KING
--- NOTE | 2020-12-29 11:28 | PCM.PN.HOSP ---
Subjective Subjective MRI obtained was negative for CVA. 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 Patient numbness and subjective weakness has since resolved. Her troponin remains elevated. Consult was placed to cardiology Case discussed with Dr. Tucker patient will undergo further evaluation with a 2D echo and a nuclear stress test Objective Data Objective Data Vital Signs: Vital Signs Temp Pulse Resp BP Pulse Ox 97.7 F L 69 16 120/62 96 12/29/20 08:55 12/29/20 08:55 12/29/20 08:55 12/29/20 08:55 12/29/20 08:55 Oxygen Flow Rate (L/min) 2 Oxygen Delivery Method Room Air Weight: 67.8 kg Body Mass Index (BMI) 24.9 Intake & Output: Intake and Output for Last 24 Hours 12/27/20 12/28/20 12/29/20 23:59 23:59 23:59 Intake Total 240 / 740 1562.5 / 1562.5 Balance 240 / 740 1562.5 / 1562.5 Medical Nutrition Assessment Dietitian: Nutrition Therapy Diagnosis Start: 12/28/20 17:34 Freq: Status: Active Protocol: Document 12/28/20 17:48 RMA (Rec: 12/28/20 17:49 RMA [id number]) Nutrition Malnutrition Evidence of Malnutrition Exists No Intake Problem None at this time Status Active Problem Clinical Problem None at this time Status Active Problem Recommendation Dietitian Recommendations/Changes Continue Cardiac Diet as ordered. Diet education and ONS as needed. Lab / Micro Data Result Diagrams: 12/29/20 04:36 12/28/20 12:20 Labs: Laboratory Results - last 24 hr 12/28/20 12:20: WBC 4.8, RBC 4.84, Hgb 14.6, Hct 43.6, MCV 90.1, MCH 30.2, MCHC 33.5, RDW Std Deviation 39.6, RDW Coeff of Ruthie 12.0, Plt Count 276, MPV 9.7, Immature Gran % (Auto) 0.000, Neut % (Auto) 48.3, Lymph % (Auto) 35.2, [place] % (Auto) 13.3 H, Eos % (Auto) 2.1, Baso % (Auto) 1.1 H, Absolute Neuts (auto) 2.3, Absolute Lymphs (auto) 1.67, Nucleated RBC % 0 12/28/20 12:20: Sodium 138, Potassium 3.6, Chloride 105, Carbon Dioxide 26.0, Anion Gap 7, BUN 11, Creatinine 0.67, Estim Creat Clear Calc 47.78, Est GFR (MDRD) Af Amer 113, Est GFR (MDRD) Non-Af 93, BUN/Creatinine Ratio 16.5, Glucose 98, Calcium 9.3, Troponin I High Sens 78.4 H* 12/28/20 12:20: POC Glucose 110 12/28/20 12:30: PT 13.7, INR 1.1, APTT 30.1 12/28/20 16:30: Total Bilirubin 1.40 H, Direct Bilirubin 0.19, AST 24, ALT 20, Alkaline Phosphatase 75, Troponin I High Sens 78.9 H*, Total Protein 7.6, Albumin 3.9, Globulin 3.7, TSH 1.03 12/28/20 18:22: Troponin I High Sens 75.9 H* 12/29/20 04:36: WBC 6.4, RBC 4.97, Hgb 14.8, Hct 44.0, MCV 88.5, MCH 29.8, MCHC 33.6, RDW Std Deviation 38.5, RDW Coeff of Ruthie 11.9, Plt Count 269, MPV 9.8, Immature Gran % (Auto) 0.000, Neut % (Auto) 64.0, Lymph % (Auto) 24.3, [place] % (Auto) 9.5, Eos % (Auto) 1.4, Baso % (Auto) 0.8, Absolute Neuts (auto) 4.1, Absolute Lymphs (auto) 1.55, Nucleated RBC % 0 12/29/20 04:36: Triglycerides 121, Cholesterol 270 H, LDL Cholesterol 192 H, VLDL Cholesterol 24, HDL Cholesterol 54 Radiography Diagnostic Testing: Radiology Impression Brain CT 12/28/20 12:20 IMPRESSION: Chronic involutional changes of the brain. Electronically Signed: Ever Singh MD at 12:33 EDT Tel , Service support , ADDENDUM: 12/28/20 1241 IMPRESSION: Chronic involutional changes of the brain. N.B. : The above Results were Read Back by Ever Singh MD to Vargas Robert DO, and understanding confirmed on 12/28/2020 12:34:44 (ET). Electronically Signed: Ever Singh MD at 12:33 EDT Tel , Service support , Chest X-Ray 12/28/20 12:20 IMPRESSION: Normal x-ray examination of the chest. Electronically Signed: Ever Singh MD at 14:22 EDT Tel , Service support , Head/Neck CTA 12/28/20 12:24 IMPRESSION: 1. Normal CTA Head with contrast. 2. Mild (40%) right carotid stenosis. 3. Mild (20%) left carotid stenosis. 4. Patent vertebral arteries bilaterally. 5. Bovine arch. Electronically Signed: Ever Singh MD at 12:56 EDT Tel , Service support , ADDENDUM: 12/28/20 1304 IMPRESSION: 1. Normal CTA Head with contrast. 2. Mild (40%) right carotid stenosis. 3. Mild (20%) left carotid stenosis. 4. Patent vertebral arteries bilaterally. 5. Bovine arch. N.B. : The above Results were Read Back by Ever Singh MD to Vargas Robert DO, and understanding confirmed on 12/28/2020 12:57:30 (ET). Electronically Signed: Ever Singh MD at 12:56 EDT Tel , Service support , Brain MRI 12/28/20 14:36 IMPRESSION: Involutional changes of the brain, as described above. No acute infarct. Electronically Signed: Ever Singh MD at 16:48 EDT Tel , Service support , Cervical Spine MRI 12/28/20 15:04 IMPRESSION: Multilevel degenerative changes, as described above. Electronically Signed: Ever Singh MD at 16:50 EDT Tel , Service support , Physical Exam Narrative GENERAL: cooperative HEENT: Atraumatic; EYES; Anicteric, Normal Conjunctiva NECK; supple, normal thyroid, RESPIRATORY: Diminished to auscultation CARDIOVASCULAR: Regular S1 S2, GI: soft, normoactive bowel sounds, : No Renal angle tenderness; EXTREMITIES: No edema, no clubbing, MUSCULOSKELETAL: no muscle waisting NEURO: Awake; no lateralizing signs. SKIN: No Rash PSYCH; Flat affect Assessment & Plan Assessment/Plan (1) Arm paresthesia, left: (2) Hypothyroidism: PLAN: Patient is a 70-year-old female presented with paresthesias involving the left upper and lower extremity as well as neck pain 1. Left-sided paresthesias ?Patient has been admitted to monitored bed where she is currently undergoing evaluation for possible CVA. As part of a management patient was placed on every 4 neurochecks ordered MRI of the brain without contrast and a 2D echo ordered. If CVA is confirmed we will consult neurology -12/29/2020MRI obtained was negative for CVA. 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 Patient numbness and subjective weakness has since resolved. 2. Left-sided neck pain with elevated troponin ?Patient has been admitted to a monitored bed subsequent evaluation with serial cardiac enzymes ordered as well as EKG -12/29/2020 Her troponin remains elevated. Consult was placed to cardiology Case discussed with Dr. Tucker patient will undergo further evaluation with a 2D echo and a nuclear stress test 3. Hypothyroidism ?Patient is on levothyroxine did continue 4. Elevated blood pressure ?With a suspicion of possible CVA patient was not placed on any antihypertensives we will continue to monitor closely 5. DVT prophylaxis ?Lovenox Charges/Coding Multi Select Codes Visit Charges Observation E&M Codin Subsequent observation care L3
[2020-12-29 11:38] VITALS: BP 111/75; PULSE 78; RESP 16; TEMP 36.8; O2SAT 97
[2020-12-29] MEDS: amLODIPine 10 MG Tablet PO (11:46)
--- NOTE | 2020-12-29 12:55 | STRESSREP ---
Stress Test Report Date: 12-29-2020 Procedure: Pharmacologic stress nuclear imaging study Indications: Left neck/left upper extremity discomfort; abnormal cardiac enzymes Consent: Per the patient Procedure: The patient underwent pharmacologic (Regadenoson 0.4mg ) evaluation with a peak heart rate of 90 beats per minute (60%predicted maximal heart rate) and a peak blood pressure of 122/72 mmHg. The baseline ECG demonstrated normal sinus rhythm. The peak pharmacologic ECG demonstrated no obvious ECG changes. There were no cardiac dysrhythmias pretest, during pharmacologic infusion, or recovery. There was no complaint of chest discomfort during pharmacologic infusion or recovery. The examination was discontinued secondary to completion of protocol. Impression: 1. Pharmacologic (Regadenoson) evaluation 2. Peak pharmacologic ECG with no obvious ECG changes. 3. There were no cardiac dysrhythmias pretest, during pharmacologic infusion, or recovery. 4. Nuclear images pending Myocardial perfusion imaging study: Technique: The patient was injected with 11.2 millicuries of technetium 99m Cardiolite and subsequently rest SPECT Cardiolite nuclear imaging was obtained in the horizontal long, vertical long, and short axis views. The patient underwent pharmacologic (Regadenoson) evaluation with a peak heart rate of 90 beats per minute (60% percent predicted maximal heart rate) and a peak blood pressure of 122/72 mmHg. The patient was injected with 35.0 millicuries of technetium 99m Cardiolite and subsequently stress SPECT Cardiolite nuclear imaging was obtained in the horizontal long, vertical long, and short axis views. A gated Cardiolite study at peak stress was obtained. Interpretation: Rest and stress SPECT Cardiolite nuclear imaging status post realignment, normalization, and attenuation correction demonstrate relative uniform tracer uptake and myocardial perfusion appearing within normal limits. There is end systolic thickening and brightening. The gated Cardiolite study demonstrates myocardial thickening and inward wall motion. The reported LVEF is 59%. Impression: 1. Rest and stress SPECT Cardiolite nuclear imaging demonstrate relative uniform tracer uptake and myocardial perfusion appearing within normal limits. 2. The gated Cardiolite study reports an LVEF of 59%. This note was generated with Spotter[employer] software. It may contain incorrect words, spelling, and punctuation that were not noted in checking the note before signing.
--- NOTE | 2020-12-29 13:03 | PCM.DC.SUM ---
Providers Date of Admission: 12/28/20 Primary Care Physician: Dr. Leidy Beyer DO Consultations 12/29/20 08:11 Consult: Cardiology Routine Consulting Provider: Raffi Tucker Reason for Consult: chest pain EMERGENT Consult: Yes MD Notified: Yes Date Notified: 12/29/20 Time Notified: 08:11 Method of Notification: Verbal Reason For Visit: TIA Diagnosis Discharge Diagnosis (1) Arm paresthesia, left: Status: Acute Code(s): R20.2 - Paresthesia of skin (2) Hypothyroidism: Status: Acute Code(s): E03.9 - Hypothyroidism, unspecified Medications at Discharge Home Medications clonazepam 1 - 2 mg PO QHS 12/28/20 levothyroxine 50 mcg PO SANCHEZ 12/28/20 levothyroxine 88 mcg PO MOTUWETHFRSA 12/28/20 amlodipine 5 mg PO DAILY #90 tab 12/29/20 aspirin 81 mg PO DAILY #90 tab 12/29/20 atorvastatin 20 mg PO DAILY #90 tab 12/29/20 hydrochlorothiazide 12.5 mg PO DAILY #90 cap 12/29/20 Hospital Course Summary of Care Provided Minutes Spent on Discharge: 35 Hospital Course: Patient is a 70-year-old female presented with paresthesias involving the left upper and lower extremity as well as neck pain 1. Left-sided paresthesias ?Patient has been admitted to monitored bed where she is currently undergoing evaluation for possible CVA. As part of a management patient was placed on every 4 neurochecks ordered MRI of the brain without contrast and a 2D echo ordered. If CVA is confirmed we will consult neurology -12/29/2020MRI obtained was negative for CVA. 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 Patient numbness and subjective weakness has since resolved. 2. Left-sided neck pain with elevated troponin ?Patient has been admitted to a monitored bed subsequent evaluation with serial cardiac enzymes ordered as well as EKG -12/29/2020 Her troponin remains elevated. Consult was placed to cardiology Case discussed with Dr. Tucker patient will undergo further evaluation with a 2D echo and a nuclear stress test -Patient nuclear stress test was negative for stress-induced ischemia. 2D echo did not show any gross structural abnormalities. Patient was discharged home on aspirin and statin per recommendations from cardiology 3. Hypothyroidism ?Patient is on levothyroxine did continue 4. Elevated blood pressure ?With a suspicion of possible CVA patient was not placed on any antihypertensives we will continue to monitor closely ?Prescription written for amlodipine and HCTZ on discharge 5. DVT prophylaxis ?Lovenox Physical Exam Narrative GENERAL: cooperative HEENT: Atraumatic; EYES; Anicteric, Normal Conjunctiva NECK; supple, normal thyroid, RESPIRATORY: Diminished to auscultation CARDIOVASCULAR: Regular S1 S2, GI: soft, normoactive bowel sounds, : No Renal angle tenderness; EXTREMITIES: No edema, no clubbing, MUSCULOSKELETAL: no muscle waisting NEURO: Awake; no lateralizing signs. SKIN: No Rash PSYCH; Flat affect Medical Records Data Medical Nutrition Assessment Dietitian: Nutrition Therapy Diagnosis Start: 12/28/20 17:34 Freq: Status: Active Protocol: Document 12/28/20 17:48 RMA (Rec: 12/28/20 17:49 RMA [id number]) Nutrition Malnutrition Evidence of Malnutrition Exists No Intake Problem None at this time Status Active Problem Clinical Problem None at this time Status Active Problem Recommendation Dietitian Recommendations/Changes Continue Cardiac Diet as ordered. Diet education and ONS as needed. Weight / BMI Weight Weight: 67.8 kg Body Mass Index (BMI) 24.9 ABG / Lab / Microbiology Data Result Diagrams: 12/29/20 04:36 12/28/20 12:20 Laboratory: Laboratory Results - last 24 hr 12/28/20 16:30: Total Bilirubin 1.40 H, Direct Bilirubin 0.19, AST 24, ALT 20, Alkaline Phosphatase 75, Troponin I High Sens 78.9 H*, Total Protein 7.6, Albumin 3.9, Globulin 3.7, TSH 1.03 12/28/20 18:22: Troponin I High Sens 75.9 H* 12/29/20 04:36: WBC 6.4, RBC 4.97, Hgb 14.8, Hct 44.0, MCV 88.5, MCH 29.8, MCHC 33.6, RDW Std Deviation 38.5, RDW Coeff of Ruthie 11.9, Plt Count 269, MPV 9.8, Immature Gran % (Auto) 0.000, Neut % (Auto) 64.0, Lymph % (Auto) 24.3, [place] % (Auto) 9.5, Eos % (Auto) 1.4, Baso % (Auto) 0.8, Absolute Neuts (auto) 4.1, Absolute Lymphs (auto) 1.55, Nucleated RBC % 0 12/29/20 04:36: Triglycerides 121, Cholesterol 270 H, LDL Cholesterol 192 H, VLDL Cholesterol 24, HDL Cholesterol 54 Radiography Diagnostic Testing: Radiology Impression Chest X-Ray 12/28/20 12:20 IMPRESSION: Normal x-ray examination of the chest. Electronically Signed: Ever Singh MD at 14:22 EDT Tel , Service support , Head/Neck CTA 12/28/20 12:24 IMPRESSION: 1. Normal CTA Head with contrast. 2. Mild (40%) right carotid stenosis. 3. Mild (20%) left carotid stenosis. 4. Patent vertebral arteries bilaterally. 5. Bovine arch. Electronically Signed: Ever Singh MD at 12:56 EDT Tel , Service support , ADDENDUM: 12/28/20 1304 IMPRESSION: 1. Normal CTA Head with contrast. 2. Mild (40%) right carotid stenosis. 3. Mild (20%) left carotid stenosis. 4. Patent vertebral arteries bilaterally. 5. Bovine arch. N.B. : The above Results were Read Back by Ever Singh MD to Vargas Robert DO, and understanding confirmed on 12/28/2020 12:57:30 (ET). Electronically Signed: Ever Singh MD at 12:56 EDT Tel , Service support , Brain MRI 12/28/20 14:36 IMPRESSION: Involutional changes of the brain, as described above. No acute infarct. Electronically Signed: Ever Singh MD at 16:48 EDT Tel , Service support , Cervical Spine MRI 12/28/20 15:04 IMPRESSION: Multilevel degenerative changes, as described above. Electronically Signed: Ever Singh MD at 16:50 EDT Tel , Service support , D/C Instructions Discharge Diet: No restrictions Discharge Activity: Return to Normal Activity Call your doctor if you observe: Fever of 101 or Higher, Shortness of breath, Fainting spells and Chest pain Meaningful Use Info Meaningful Use Diagnoses (Choose all that apply): None applicable Discharge Plan Admission Admit Date/Time: 12/28/20 14:36 Primary Reason for Your Visit: Left upper extremity paresthesias Attending Provider: Taz Walsh Primary Care Provider: Leidy Beyer Consulting Providers: Raffi Tucker Discharge Orders/Prescriptions Prescriptions: New amlodipine 5 mg tablet 5 mg PO DAILY Qty: 90 RF: 0 hydrochlorothiazide 12.5 mg capsule 12.5 mg PO DAILY Qty: 90 RF: 0 atorvastatin 20 mg tablet 20 mg PO DAILY Qty: 90 RF: 0 aspirin 81 mg tablet,delayed release (DR/EC) 81 mg PO DAILY Qty: 90 RF: 0 Continued clonazepam 1 mg tablet 1 - 2 mg PO QHS RF: 0 levothyroxine 88 mcg tablet 88 mcg PO MOTUWETHFRSA RF: 0 levothyroxine 50 mcg tablet 50 mcg PO SANCHEZ RF: 0 Discontinued ibuprofen 200 mg Tablet 400 mg PO BID PRN (Reason: Pain) RF: 0 Referrals / Follow Up: Leidy Beyer DO [Primary Care Provider] - In 1 Week Disposition Disposition (needs filled in before D/C Order can be placed): Home, Self Care Charges/Coding Visit Charges OBSV E&M: 95751 Observation care discharge
--- NOTE | 2020-12-29 13:11 | CON.PCM.CA_ITS ---
Assessment & Plan Assessment/Plan (1) Abnormal cardiac enzyme level: PLAN: The patient does have a mildly elevated troponin I level. It appears to be without significant change on repeat. The etiology is uncertain. Thus far there appears to be no definitive cardiovascular etiology for this. It is unclear whether this is related to her neurologic event with her migraine headache, etc. (2) HLD (hyperlipidemia): QUALIFIERS: Hyperlipidemia type: unspecified Qualified Code(s): E78.5 - Hyperlipidemia, unspecified PLAN: It appears that her lipids are elevated. It would be recommended based upon her lipid profile that she consider initiation of lipid-lowering therapy with a statin. (3) Hypothyroidism: QUALIFIERS: Hypothyroidism type: unspecified Qualified Code(s): E03.9 - Hypothyroidism, unspecified PLAN: She is working with her PCP to adjust her thyroid medications. (4) Arm paresthesia, left: PLAN: The etiology of her left-sided discomfort/paresthesias is unclear. There would be concerns of any underlying neurologic etiology. Thus far she has not been found to have a definitive etiology. She will continue evaluation care per internal medicine. Addt'l Comments From a cardiac standpoint it would be recommended the patient be considered for medical therapy with aspirin 81 mg p.o. daily and a lipid-lowering therapy with a statin. It does not appear that she requires additional cardiovascular medications at this time or additional cardiovascular testing based upon the results of her noninvasive studies. This could change depending upon her future clinical course. The patient's case has been previously discussed and reviewed with patient and Dr. Walsh. This note was generated using a voice recognition system and there may be incorrect words, spelling or punctuation that were not noted when reviewing the office note prior to saving. HPI Consult Data Date of Consult: 12/29/20 HPI Narrative HPI Narrative: AMOL RUBIO, is a 70 year old white female who presents cardiovascular consultation based upon concerns of left neck/left upper extremity discomfort and abnormal cardiac enzymes. She states that to the best of her knowledge she has no cardiovascular history. She does not recall undergoing cardiovascular studies in the past. She notes her most recent concern is that she had a sensation in her left thumb, then a sharp discomfort in her left forearm radiating upwards, then a cramping sensation in her left neck area, a migraine headache which she states she has not experienced in the past, and then the notation of weakness or loss of function in the left lower extremity. She was evaluate in the [facility] emergency department. She underwent, based upon her symptoms, a stroke alert evaluation. Apparently this was thought to be unremarkable. During her evaluation she had cardiac enzymes performed which were abnormal. They were repeated/trended with no significant change. Her ECG demonstrated sinus bradycardia with no acute ECG changes she was subsequently referred for additional cardiovascular evaluation. At the present time she states her symptoms appear to be absent. She denies any ongoing symptoms of orthopnea or PND or peripheral pitting edema. There has been no near syncope or syncope. [facility] Medical History (Updated 12/29/20 @ 13:[address] Raffi Tucker MD) Abnormal cardiac enzyme level Arrhythmia Former smoker HLD (hyperlipidemia) Hypothyroidism Home Medications clonazepam 1 - 2 mg PO QHS 12/28/20 [History Last Taken 12/27/20] ibuprofen 400 mg PO BID PRN 12/28/20 [History Last Taken 12/27/20] levothyroxine 50 mcg PO SANCHEZ 12/28/20 [History Last Taken 12/26/20] levothyroxine 88 mcg PO MOTUWETHFRSA 12/28/20 [History Last Taken 12/27/20] Allergy/AdvReac Type Severity Reaction Status Date / Time Penicillins [PCN] Allergy Swelling Verified 12/28/20 12:27 Surgical History History of appendectomy History of hysterectomy Social History Smoking Status: Former smoker ROS Constitutional Constitutional: Reports as per HPI Eyes Eyes: Reports as per HPI ENT HEENT: Reports as per HPI Cardiovascular Cardiovascular: Reports as per HPI Respiratory/Chest Respiratory/Chest: Reports as per HPI Gastrointestinal Gastrointestinal: Reports as per HPI Genitourinary Genitourinary: Reports as per HPI Musculoskeletal Musculoskeletal: Reports other Details: Left upper extremity discomfort Neurologic Neurologic: Reports as per HPI Physical Exam Narrative The patient is awake and alert and in no acute distress. Const alert, oriented x3, no apparent distress and healthy appearing Orientation / Consciousness: awake HEENT normocephalic, head/scalp atraumatic and hearing grossly normal bilaterally Eyes PERRL, EOMs intact bilaterally and conjunctivae normal Neck full ROM, supple and no JVD Chest inspection of chest normal Resp normal respiratory effort and clear to auscultation bilaterally Cardio regular rate, regular rhythm, S1 normal heart sound and S2 normal heart sound GI normal to inspection, nondistended, normoactive bowel sounds Extremity no pedal edema Skin no rashes or lesions noted Neuro oriented x3 and moves all extremities Psych mental status grossly normal Procedure Criteria Type of Procedure Procedure Type: Elective Elective Risks - COVID COVID Risk Discussion: The surgeon/proceduralist and patient have discussed in detail the risk of exposure to and/or potential harm posed by the COVID-19 virus with having a surgery/procedure at this time versus the risk of delaying the surgery/procedure. It is not possible to know either the risk of delaying the surgery or procedure or chance of getting an infection with perfect accuracy, but a joint decision was made between the patient and the surgeon/proceduralist to proceed at this time with the scheduled surgery/procedure as indicated on the consent form. Objective Data Vital Signs: Vital Signs Temp Pulse Resp BP Pulse Ox 98.2 F 78 16 111/75 97 12/29/20 11:38 12/29/20 11:38 12/29/20 11:38 12/29/20 11:38 12/29/20 11:38 Oxygen Flow Rate (L/min) 2 Oxygen Delivery Method Room Air Weight: 149 lb 7.574 oz Body Mass Index (BMI) 24.9 Intake & Output: Intake and Output for Last 24 Hours 12/27/20 12/28/20 12/29/20 23:59 23:59 23:59 Intake Total 240 / 740 1682.5 / 1682.5 Balance 240 / 740 1682.5 / 1682.5 Lab / Micro Data Result Diagrams: 12/29/20 04:36 12/28/20 12:20 Labs: Laboratory Results - last 24 hr 12/28/20 16:30: Total Bilirubin 1.40 H, Direct Bilirubin 0.19, AST 24, ALT 20, Alkaline Phosphatase 75, Troponin I High Sens 78.9 H*, Total Protein 7.6, Albumin 3.9, Globulin 3.7, TSH 1.03 12/28/20 18:22: Troponin I High Sens 75.9 H* 12/29/20 04:36: WBC 6.4, RBC 4.97, Hgb 14.8, Hct 44.0, MCV 88.5, MCH 29.8, MCHC 33.6, RDW Std Deviation 38.5, RDW Coeff of Ruthie 11.9, Plt Count 269, MPV 9.8, Immature Gran % (Auto) 0.000, Neut % (Auto) 64.0, Lymph % (Auto) 24.3, [place] % (Auto) 9.5, Eos % (Auto) 1.4, Baso % (Auto) 0.8, Absolute Neuts (auto) 4.1, Absolute Lymphs (auto) 1.55, Nucleated RBC % 0 12/29/20 04:36: Triglycerides 121, Cholesterol 270 H, LDL Cholesterol 192 H, VLDL Cholesterol 24, HDL Cholesterol 54 Cardiology Labs/Tests 12/28/20 16:30: Total Bilirubin 1.40 H, Direct Bilirubin 0.19 12/29/20 04:36: WBC 6.4, RBC 4.97, Hgb 14.8, Hct 44.0, MCV 88.5, MCH 29.8, MCHC 33.6, Plt Count 269, MPV 9.8, Immature Gran % (Auto) 0.000, Neut % (Auto) 64.0, Lymph % (Auto) 24.3, [place] % (Auto) 9.5, Eos % (Auto) 1.4, Baso % (Auto) 0.8, Absolute Neuts (auto) 4.1, Nucleated RBC % 0 12/29/20 04:36: Triglycerides 121, Cholesterol 270 H, LDL Cholesterol 192 H, VLDL Cholesterol 24, HDL Cholesterol 54 Rhythm: Sinus rhythm EKG: As noted above ECHO: Interpretation Summary Left ventricular systolic function is normal. The estimated ejection fraction is 65 %. Trivial mitral valve insufficiency. Mild tricuspid valve insufficiency. Mild focal aortic valve calcification. Right ventricular systolic pressure estimated to be 28 mmHg. No evidence for diastolic dysfunction. Bubble contrast study negative for right to left interatrial shunt. Stress Test: Stress Test Report Date: 12-29-2020 Procedure: Pharmacologic stress nuclear imaging study Indications: Left neck/left upper extremity discomfort; abnormal cardiac enzymes Consent: Per the patient Procedure: The patient underwent pharmacologic (Regadenoson 0.4mg ) evaluation with a peak heart rate of 90 beats per minute (60%predicted maximal heart rate) and a peak blood pressure of 122/72 mmHg. The baseline ECG demonstrated normal sinus rhythm. The peak pharmacologic ECG demonstrated no obvious ECG changes. There were no cardiac dysrhythmias pretest, during pharmacologic infusion, or recovery. There was no complaint of chest discomfort during pharmacologic infusion or recovery. The examination was discontinued secondary to completion of protocol. Impression: 1. Pharmacologic (Regadenoson) evaluation 2. Peak pharmacologic ECG with no obvious ECG changes. 3. There were no cardiac dysrhythmias pretest, during pharmacologic infusion, or recovery. 4. Nuclear images pending Myocardial perfusion imaging study: Technique: The patient was injected with 11.2 millicuries of technetium 99m Cardiolite and subsequently rest SPECT Cardiolite nuclear imaging was obtained in the horizontal long, vertical long, and short axis views. The patient underwent pharmacologic (Regadenoson) evaluation with a peak heart rate of 90 beats per minute (60% percent predicted maximal heart rate) and a peak blood pressure of 122/72 mmHg. The patient was injected with 35.0 millicuries of technetium 99m Cardiolite and subsequently stress SPECT Cardiolite nuclear imaging was obtained in the horizontal long, vertical long, and short axis views. A gated Cardiolite study at peak stress was obtained. Interpretation: Rest and stress SPECT Cardiolite nuclear imaging status post realignment, normalization, and attenuation correction demonstrate relative uniform tracer uptake and myocardial perfusion appearing within normal limits. There is end systolic thickening and brightening. The gated Cardiolite study demonstrates myocardial thickening and inward wall motion. The reported LVEF is 59%. Impression: 1. Rest and stress SPECT Cardiolite nuclear imaging demonstrate relative uniform tracer uptake and myocardial perfusion appearing within normal limits. 2. The gated Cardiolite study reports an LVEF of 59%. Radiography Diagnostic Testing: Radiology Impression Chest X-Ray 12/28/20 12:20 IMPRESSION: Normal x-ray examination of the chest. Electronically Signed: Ever Singh MD at 14:22 EDT Tel , Service support , Brain MRI 12/28/20 14:36 IMPRESSION: Involutional changes of the brain, as described above. No acute infarct. Electronically Signed: Ever Singh MD at 16:48 EDT Tel , Service support , Cervical Spine MRI 12/28/20 15:04 IMPRESSION: Multilevel degenerative changes, as described above. Electronically Signed: Ever Singh MD at 16:50 EDT Tel , Service support ,
--- NOTE | 2020-12-29 13:28 | PCM.DC ---
Discharge Instructions Diet Discharge Diet: No restrictions Dressing / Incision Call your doctor if you observe: Fever of 101 or Higher, Shortness of breath, Fainting spells and Chest pain Follow Up Care Test Results: Test results from this visit will be discussed in further detail at your follow-up appointment, if applicable. Discharge Plan Admission Admit Date/Time: 12/28/20 14:36 Primary Reason for Your Visit: Left upper extremity paresthesias Attending Provider: Taz Walsh Primary Care Provider: Leidy Beyer Consulting Providers: Raffi Tucker Discharge Orders/Prescriptions Prescriptions: New amlodipine 5 mg tablet 5 mg PO DAILY Qty: 90 RF: 0 hydrochlorothiazide 12.5 mg capsule 12.5 mg PO DAILY Qty: 90 RF: 0 atorvastatin 20 mg tablet 20 mg PO DAILY Qty: 90 RF: 0 aspirin 81 mg tablet,delayed release (DR/EC) 81 mg PO DAILY Qty: 90 RF: 0 Continued clonazepam 1 mg tablet 1 - 2 mg PO QHS RF: 0 levothyroxine 88 mcg tablet 88 mcg PO MOTUWETHFRSA RF: 0 levothyroxine 50 mcg tablet 50 mcg PO SANCHEZ RF: 0 Discontinued ibuprofen 200 mg Tablet 400 mg PO BID PRN (Reason: Pain) RF: 0 Referrals / Follow Up: Leidy Beyer DO [Primary Care Provider] - In 1 Week Disposition Disposition (needs filled in before D/C Order can be placed): Home, Self Care
--- NOTE | 2020-12-29 13:39 | CASEMGMT ---
JOSE BAH NOTE: Pt being discharged home. PT/OT has been ordered but no notes documented yet. Call placed to [facility] in therapy. She states OT has seen pt and walked her in the hallway and she is independent. JOSE BAH to room to meet w/pt and introduced self and role. She states she would like to have her new meds delivered to her room prior to discharge from [facility] retail pharmacy. She states she does not want to take the medication for cholesterol and that she did inform the doctor re: same. 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 Call placed to [facility] retail pharmacy and they were made aware pt would like meds delivered to her room, but that she does not want all of them. They plan to call pt's room and talk w/pt and will deliver medications pt want. Pt denies having any other discharge planning needs, questions, or concerns. Nikki MELENDREZ RN, CM
--- NOTE | 2020-12-29 14:26 | PHA.DC.MR ---
Pharmacy Service has performed discharge medication reconciliation for this patient. The patient's discharge medication list was reviewed for discrepancies and discrepancies were resolved. Medication education sheets prepared. Pt discharge when I went to agency legal counsel. Home Medications clonazepam 1 - 2 mg PO QHS 12/28/20 levothyroxine 50 mcg PO SANCHEZ 12/28/20 levothyroxine 88 mcg PO MOTUWETHFRSA 12/28/20 amlodipine 5 mg PO DAILY #90 tab 12/29/20 aspirin 81 mg PO DAILY #90 tab 12/29/20 atorvastatin 20 mg PO DAILY #90 tab 12/29/20 hydrochlorothiazide 12.5 mg PO DAILY #90 cap 12/29/20
== END 2020-12-29 14:19 | disposition home or self-care (01) ==
LOC: ED 12:30 → PCU 14:32
PROVIDERS: Admitting Provider Internal Medicine; Emergency Provider Student in an Organized Health Care Education/Training Program; PCP Family Medicine; Visit Provider Internal Medicine
DX: R20.2 Paresthesia of skin (principal); M47.22 Other spondylosis with radiculopathy, cervical region; R79.89 Other specified abnormal findings of blood chemistry; Z87.891 Personal history of nicotine dependence; E03.9 Hypothyroidism, unspecified; I65.23 Occlusion and stenosis of bilateral carotid arteries; Z79.899 Other long term (current) drug therapy; R03.0 Elevated blood-pressure reading, without diagnosis of hypertension; R00.1 Bradycardia, unspecified; I08.3 Combined rheumatic disorders of mitral, aortic and tricuspid valves; R74.8 Abnormal levels of other serum enzymes; R53.1 Weakness; G31.9 Degenerative disease of nervous system, unspecified; E78.5 Hyperlipidemia, unspecified; R51.9 Headache, unspecified; M54.2 Cervicalgia; R07.9 Chest pain, unspecified
CPT/HCPCS: 36415; 70450; 70496; 70498; 70551; 71045; 72141; 78452; 80048; 80061; 80076; 82962; 84443; 84484; 85025; 85610; 85730; 93005; 93017; 93306; 94762; 96361; 96374; 97166; 97802; 99218; 99251; 99285; A9500; J7030; Q9967; A4216; G0378; G0463; J2785

== ENCOUNTER 2021-03-14 21:55 | Emergency (ER) | payer MEDICARE, SELFPAY ==
[2021-03-14 21:55] VITALS: BP 189/107; PULSE 66; RESP 16; TEMP 36.6; O2SAT 95; BMI 23.3
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
[2021-03-14 23:13] VITALS: BP 204/104; PULSE 65; RESP 14; O2SAT 97
[2021-03-14] MEDS: oxyCODONE 5 MG Tablet PO (23:38)
[2021-03-14 23:42] VITALS: BP 200/99; PULSE 69; RESP 15; O2SAT 98
== END 2021-03-14 23:42 | disposition home or self-care (01) ==
PROVIDERS: Emergency Provider Emergency Medicine; PCP Family Medicine
DX: S60.221A Contusion of right hand, initial encounter (principal); S80.01XA Contusion of right knee, initial encounter; V43.52XA Car driver injured in collision with other type car in traffic accident, initial encounter; Y92.410 Unspecified street and highway as the place of occurrence of the external cause; E03.9 Hypothyroidism, unspecified; E05.00 Thyrotoxicosis with diffuse goiter without thyrotoxic crisis or storm; E78.5 Hyperlipidemia, unspecified; Z79.82 Long term (current) use of aspirin; Z87.891 Personal history of nicotine dependence
CPT/HCPCS: 73130; 73562; 99282

== ENCOUNTER 2022-04-02 08:41 | Observation (INO) | payer MEDICARE, SELFPAY ==
[2022-04-02] VITALS (14 sets, daily range): BP systolic 96–122; BP diastolic 53–68; PULSE 88–105; RESP 16–20; TEMP 36.4–37.1; O2SAT 84–96; BMI 24.9
--- NOTE | 2022-04-02 10:01 | CT_ITS ---
HISTORY: weakness. TECHNIQUE: Multiple axial images were obtained of the head without intravenous contrast. A radiation dose optimization technique was used for this scan. 225 images. COMPARISON: 12/28/2020. FINDINGS: BRAIN PARENCHYMA: Multiple foci and zones of low attenuation in the bilateral cerebral white matter compatible with chronic small vessel ischemic gliosis. No acute intra-axial hemorrhage identified. CSF SPACES: Generalized volume loss. No midline shift or other significant mass effect. No acute extra-axial hemorrhage seen. OTHER: Intact calvarium. No significant air-fluid levels in the paranasal sinuses or mastoid air cells. Bilateral lens resections. CT/Brain/Head without Contrast IMPRESSION: No acute intracranial process identified. Chronic involutional and white matter changes. Electronically Signed: Basilia Romero MD at 11:17 EDT ,
--- NOTE | 2022-04-02 10:01 | RAD_ITS ---
HISTORY: weakness, cough. TECHNIQUE: XR Chest 1 View. COMPARISON: 12/28/2020. FINDINGS: CARDIOMEDIASTINAL BORDERS: Cardiac silhouette within normal limits in size. Mediastinal contour unchanged from prior. LUNGS: Chronic coarsening of markings in the lungs without focal consolidation. PLEURA: No pleural effusion or pneumothorax seen. OSSEOUS STRUCTURES: Osteopenia. RAD/Chest 1 View (Portable) IMPRESSION: No acute cardiopulmonary process identified. Mild scarring in the lungs. Electronically Signed: Basilia Romero MD at 11:10 EDT ,
[2022-04-02 10:13] LABS: Absolute Lymphocyte Count 1.31 X10^3/uL (0.83-4.51); Absolute Neutrophil Count 11.8 X10^3/uL (2.0-7.7); Basophil# 0.12 X10^3/uL; Basophil% 0.8 % (0-1); Eosinophil# 0.14 X10^3/uL; Eosinophils% 0.9 % (0-5); Hematocrit 44.8 % (37-47); Hemoglobin 15.2 g/dL (12.0-15.0); Lymphocyte # 1.31 X10^3/ul (0.83-4.51); Lymphocyte % 8.7 % (19-41); Mean Corp Hgb Conc 33.9 g/dL (32-36); Mean Corpuscular Hgb 30.7 pg (27.0-32.0); Mean Corpuscular Volume 90.5 fL (81-99); Mean Platelet Vol. 10.4 fl (6.2-12.0); Monocyte# 1.63 X10^3/uL; Monocyte% 10.8 % (0-10); NRBC Flagged by Analyzer 0 % (0-5); Neutrophil # 11.79 X10^3/uL (2.7-7.7); Neutrophil % 78.2 % (47-70); POSITIVE DIFFERENTIAL YES; Platelet Count 257 K/mm3 (150-450); RBC Distribution Width CV 12.6 % (11.6-14.6); RBC Distribution Width SD 42.1 fl (35.1-43.9); Red Blood Count 4.95 M/mm3 (4.2-5.4); White Blood Count 15.1 K/mm3 (4.4-11.0)
[2022-04-02 10:17] LABS: Differential Indicated SCAN CRITERIA MET
[2022-04-02] MEDS: Acetaminophen 325 MG Tablet 650 MG PO (10:20)
[2022-04-02] MEDS: 0.9% Normal Saline 1,000 ML 999 ML IV ×2 (10:20→13:35)
[2022-04-02] MEDS: Ondansetron 4 MG/2 ML Vial IV (10:21)
[2022-04-02 10:33] LABS: Lactic Acid 2.1 mmol/L (0.4-1.9)
[2022-04-02 10:37] LABS: ALB/GLOB Ratio 0.7 RATIO (0.9-2.4); AST(SGOT) 28 U/L (15-37); Alanine Aminotransfer ALT/SGPT 15 U/L (13-56); Albumin, Serum 3.2 g/dL (3.2-5.0); Alkaline Phosphatase 81 U/L (45-117); Anion Gap 11 (5-15); BUN 21 mg/dL (7-18); BUN/Creat Ratio 17.6 RATIO (10-20); CPK Total, Creatine Kinase 245 U/L (26-192); Calcium,Total 9.2 mg/dL (8.5-10.1); Chloride 97 mmol/L (98-107); Creatinine, Serum 1.19 mg/dL (0.55-1.02); EST Glomerular Filtration Rate 48 mL/min (>60); Est Glom Filt Rate - Afr Amer 58 mL/min (>60); Free T3 0.7 pg/mL (2.18-3.98); Globulin 4.7 g/dL (2.2-4.2); Glucose 106 mg/dL (74-106); Lipase 34 U/L (73-393); Potassium 3.3 mmol/L (3.5-5.1); Protein, Total 7.9 g/dL (6.4-8.2); Sodium Level 134 mmol/L (136-145); T4 Free Direct 1.15 ng/dL (0.76-1.46); Troponin-I HS 56 pg/mL (3.0-54.0)
--- NOTE | 2022-04-02 10:37 | EKG12_ITS ---
Test Reason : WEAKNESS Blood Pressure : / mmHG Vent. Rate : 096 BPM Atrial Rate : 096 BPM P-R Int : 160 ms QRS Dur : 100 ms QT Int : 378 ms P-R-T Axes : 034 015 046 degrees QTc Int : 477 ms Normal sinus rhythm Nonspecific T wave abnormality Prolonged QT Abnormal ECG Confirmed by ALEXIS FRANKS, CORINNA ([id number]), editorial project manager UVALDO KRUSE ([id number]) on 04/04/2022 1:03:14 PM Referred By: ANTIONE Confirmed By:CORINNA ESPINOZA MD
[2022-04-02 12:05] LABS: Mucous, Urine 0 SEEN /hpf (<or=2+); Red Blood Cells-Urine 0 SEEN /hpf (0-5)
--- NOTE | 2022-04-02 12:05 | EDS_ITS ---
HPI History of Present Illness Chief Complaint: Weakness Narrative Narrative: Patient is a 71-year-old female with history of Graves' disease and anxiety presenting with generalized weakness. Patient states she woke up yesterday and felt like her arms and legs were numb and weak. She had to crawl around her house because she felt so weak. She has been having chills for the past 3 days and feeling very fatigued. She had nausea and decreased oral intake. She denies any urinary symptoms. Patient states she fell into the wall yesterday because she was just so weak. She also fell again out of the bathtub yesterday and hit her head. She states she had a negative COVID test at home but it was an old test. 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 Has a chronic cough that is unchanged. No recent medication changes or vaccinations. No other complaints at this time. [facility] Medical History Abnormal cardiac enzyme level Arrhythmia Former smoker Graves disease HLD (hyperlipidemia) Hypothyroidism Restless leg syndrome Home Medications clonazepam 1 mg tablet 2 mg PO QHS ANXIETY 12/28/20 [History Last Taken 12/27/20] levothyroxine 50 mcg tablet 50 mcg PO SANCHEZ THYROID 12/28/20 [History Last Taken 12/26/20] levothyroxine 88 mcg tablet 88 mcg PO MOTUWETHFRSA THYROID 12/28/20 [History Last Taken 12/27/20] aspirin 81 mg tablet,delayed release 81 mg PO DAILY #90 tabs 12/29/20 [Rx Last Taken Unknown] tramadol 50 mg tablet 50 mg PO Q6H PRN pain 3 days #12 tabs 03/14/21 [Rx Last Ta freddy Unknown] cholecalciferol (vitamin D3) 10 mcg (400 unit) capsule (Vitamin D3) 20 mcg PO DAILY 04/02/22 [History Last Taken Unknown] Allergy/AdvReac Type Severity Reaction Status Date / Time cheese Allergy Hives Verified 04/02/22 08:44 chocolate flavor Allergy Rash Verified 04/02/22 08:44 Penicillins [PCN] Allergy Swelling Verified 04/02/22 08:44 Family History no significant family his Surgical History History of appendectomy History of hysterectomy Social History Smoking Status: Former smoker smoking status stop date: 06/04/14 ROS ROS ED Constitutional Constitutional ED: Reports chills; Denies fever(s) Eyes Eyes: Denies blurry vision or change in vision ENT ENT ED: Denies ear pain, rhinorrhea or sore throat Cardiovascular Cardiovascular: Denies chest pain or palpitations Respiratory/Chest Respiratory/Chest: Reports cough; Denies dyspnea Gastrointestinal Gastrointestinal: Reports nausea; Denies abdominal pain or vomiting Genitourinary Genitourinary ED: Denies dysuria, hematuria or urinary frequency Musculoskeletal Musculoskeletal: Reports myalgias and other Details: weakness ; Denies arthralgias Integumentary Denies rash Neurologic Neurologic: Reports paresthesias and weakness; Denies headache(s) Psychiatric Psychiatric: Denies anxiety Hematologic/Lymphatic Hematologic/Lymphatic: Denies easy bleeding or easy bruising EXAM Physical Exam Const Vital Signs: 04/02/22 08:45 04/02/22 09:20 04/02/22 09:22 Temperature 98.8 F 98.8 F Temperature Source Temporal Temporal Pulse Rate 105 H 105 H Pulse Rate [Lying] Pulse Rate [Sitting (for 1 minute prior to obtaining)] Pulse Rate [Standing (for 1 minute prior to obtaining)] Respiratory Rate 16 16 Respiratory Effort Normal Blood Pressure 96/53 L 96/53 L Blood Pressure [Lying] Blood Pressure [Sitting (for 1 minute prior to obtaining)] Blood Pressure [Standing (for 1 minute prior to obtaining)] Blood Pressure Mean 67 67 Blood Pressure Mean [Lying] Blood Pressure Mean [Sitting (for 1 minute prior to obtaining)] Blood Pressure Mean [Standing (for 1 minute prior to obtaining)] Pulse Ox 93 93 Oxygen Delivery Method Room Air Room Air 04/02/22 10:37 04/02/22 11:00 04/02/22 12:00 Temperature 98.2 F 98.3 F Temperature Source Oral Oral Pulse Rate 97 92 Pulse Rate [Lying] 100 Pulse Rate [Sitting (for 1 minute prior to obtaining)] 101 H Pulse Rate [Standing (for 1 minute prior to obtaining)] 98 Respiratory Rate 20 H 20 H Respiratory Effort Blood Pressure 118/59 L 111/68 Blood Pressure [Lying] 110/58 L Blood Pressure [Sitting (for 1 minute prior to obtaining)] 122/58 H Blood Pressure [Standing (for 1 minute prior to obtaining)] 121/57 H Blood Pressure Mean 78 82 Blood Pressure Mean [Lying] 75 Blood Pressure Mean [Sitting (for 1 minute prior to obtaining)] 79 Blood Pressure Mean [Standing (for 1 minute prior to obtaining)] 78 Pulse Ox 92 92 Oxygen Delivery Method Room Air Room Air Positive well nourished and well developed General Appearance ED: well developed and NAD HEENT Reports TM's clear and dry mucous membranes Tympanic Membrane ED: Yes TM's clear Mouth ED: Yes dry mucous membranes Mouth: dry mucous membranes Eyes PERRL and EOMs intact bilaterally Neck supple and no JVD Neck Narrative: No meningeal signs Chest Wall inspection of chest normal and palpation of chest normal Resp normal respiratory effort and clear to auscultation bilaterally Cardio regular rhythm and no murmurs Rate: tachycardic GI normal to inspection, nondistended, normoactive bowel sounds and non-tender Palpation: Negative for guarding Back/Spine no CVA tenderness Neuro oriented x3, CN's II-XII intact bilaterally and no sensory deficits noted Neuro Narrative: NIH equals 0 Motor Exam: strength 5/5 throughout and general weakness Skin no rashes or lesions noted MDM MDM MDM Narrative Medical decision making narrative: Patient evaluated for generalized weakness. She feels that her legs and arms are numb and weak and she cannot move them however she has a normal neurologic exam. I suspect this is more of a metabolic syndrome especially as she is mil dly tachycardic and soft blood pressures in the ER. She has a leukocytosis of 15.1. Creatinine is double her baseline at 1.19. No significant electrolyte abnormalities to explain her weakness. Her lactate is elevated at 2.1 and her total creatinine kinase is mildly elevated at 245. She does have a history of Graves' disease however no significant abnormalities with her thyroid. TSH is mildly elevated. I do not think this is enough to explain her symptoms. Urinalysis is consistent with UTI she has 10-25 white blood cells and 3+ bacteria. Patient has blood cultures pending. Started on IV Rocephin. Due to her profound weakness and what appears to be sepsis secondary to urinary tract infection she will be admitted. Patient is begrudgingly agreeable to this plan of care. Remains hemodynamically stable in the ER and blood pressure and heart rate to improve with fluid resuscitation fluid Lab Data Attestation: I reviewed the patient's lab results. Labs: Laboratory Results - last 24 hr 04/02/22 04/02/22 04/02/22 09:16 09:16 09:16 WBC 15.1 H RBC 4.95 Hgb 15.2 H Hct 44.8 MCV 90.5 MCH 30.7 MCHC 33.9 RDW Std Deviation 42.1 RDW Coeff of Ruthie 12.6 Plt Count 257 MPV 10.4 Immature Gran % (Auto) 0.600 Neut % (Auto) 78.2 H Lymph % (Auto) 8.7 L Quay % (Auto) 10.8 H Eos % (Auto) 0.9 Baso % (Auto) 0.8 Absolute Neuts (auto) 11.8 H Absolute Lymphs (auto) 1.31 Nucleated RBC % 0 Diff Path Review May foll Sodium 134 L Potassium 3.3 L Chloride 97 L Carbon Dioxide 26.0 Anion Gap 11 BUN 21 H Creatinine 1.19 H Estim Creat Clear Calc 37.80 Est GFR (MDRD) Af Amer 58 L Est GFR (MDRD) Non-Af 48 L BUN/Creatinine Ratio 17.6 Glucose 106 Lactic Acid 2.1 H* Calcium 9.2 Phosphorus Magnesium Total Bilirubin 2.40 H AST 28 ALT 15 Alkaline Phosphatase 81 Total Creatine Kinase 245 H Troponin I High Sens 56 H Total Protein 7.9 Albumin 3.2 Globulin 4.7 H Albumin/Globulin Ratio 0.7 L Lipase 34 L TSH 11.50 H Free T4 1.15 Free T3 pg/dL 0.7 L Urine Color Urine Clarity Urine pH Ur Specific [place] Urine Protein Urine Glucose (UA) Urine Ketones Urine Occult Blood Urine Nitrite Urine Bilirubin Urine Urobilinogen Ur Leukocyte Esterase Urine RBC Urine WBC Ur Squamous Epith Cells Urine Bacteria Urine Mucus 04/02/22 04/02/22 09:16 12:00 WBC RBC Hgb Hct MCV MCH MCHC RDW Std Deviation RDW Coeff of Ruthie Plt Count MPV Immature Gran % (Auto) Neut % (Auto) Lymph % (Auto) Quay % (Auto) Eos % (Auto) Baso % (Auto) Absolute Neuts (auto) Absolute Lymphs (auto) Nucleated RBC % Diff Path Review Sodium Potassium Chloride Carbon Dioxide Anion Gap BUN Creatinine Estim Creat Clear Calc Est GFR (MDRD) Af Amer Est GFR (MDRD) Non-Af BUN/Creatinine Ratio Glucose Lactic Acid Calcium Phosphorus 3.2 Magnesium 2.2 Total Bilirubin AST ALT Alkaline Phosphatase Total Creatine Kinase Troponin I High Sens Total Protein Albumin Globulin Albumin/Globulin Ratio Lipase TSH Free T4 Free T3 pg/dL Urine Color Yellow Urine Clarity Sl. Cloudy Urine pH 5.0 Ur Specific [place] 1.015 Urine Protein 15 H Urine Glucose (UA) Normal Urine Ketones 5 H Urine Occult Blood 250 H Urine Nitrite Negative Urine Bilirubin Negative Urine Urobilinogen Normal Ur Leukocyte Esterase 500 H Urine RBC 0 SEEN Urine WBC 10-25 SEEN Ur Squamous Epith Cells 0-5 SEEN Urine Bacteria 3+ Urine Mucus 0 SEEN Radiography Chest X-Ray - ED: 1 View, Read by ED Physician, Read by Radiologist and No Acute Disease Diagnostic Testing: Clinical Impression(s) from Imaging Studies Brain CT 04/02/22 10:01 IMPRESSION: No acute intracranial process identified. Chronic involutional and white matter changes. Electronically Signed: Basilia Romero MD at 11:17 EDT , Chest X-Ray 04/02/22 10:01 IMPRESSION: No acute cardiopulmonary process identified. Mild scarring in the lungs. Electronically Signed: Basilia Romero MD at 11:10 EDT , Rhythm Strip Rhythm Strip: Sinus Rhythm Rate: 96 Ectopy: None EKG Initial EKG: Attestation: I personally reviewed and interpreted this EKG as follows: Interpretation: Sinus Rhythm Comments: Normal sinus rhythm at a rate of 96 Normal axis Normal intervals Nonspecific T wave abnormalities Compared to prior EKG patient is no longer bradycardic Discharge Plan Dx/Rx/DC Orders Clinical Impression: Sepsis, UTI (urinary tract infection), Elevated lactic acid level, Leukoc ytosis, Weakness Disposition Disposition: [facility] Discharge Date/Time: 04/02/22 14:04
[2022-04-02 12:14] LABS: Color, Urine Yellow (Yellow); Glucose, Dipstick Normal (Normal); Ketone-Dipstick 5 mg/dl (Negative); Leukocyte Esterase-Dipstick 500 /ul (Negative); Nitrite-Dipstick Negative (Negative); Occult Blood-Urine 250 /ul (Negative); Protein-Dipstick 15 mg/dl (Negative); Specific Gravity, Urine 1.015 (1.002-1.030); Urine Bilirubin Dipstick Negative (Negative); Urine Clarity Sl. Cloudy (Clear); Urine Urobilinogen Normal (Normal)
[2022-04-02 12:24] LABS: Bacteria 3+ /hpf (None Seen); Squamous Epithelial Cells - UA 0-5 SEEN /hpf (5-10); White Blood Cells 10-25 SEEN /hpf (0-5)
--- NOTE | 2022-04-02 13:16 | PCM.HP.STD ---
[facility] - General General Date of Admission: 04/02/22 Date of Service: 04/02/22 Chief Complaint: Generalized weakness, could not lift her legs, soft fall for last 2 days. HPI Narrative AMOL RUBIO, is a 71 F came to ED for generalized weakness, could not move states could not lift her legs for last 2 days. She was not able to drink water, loss of appetite. Yesterday, she felt her legs gave out and lost balance and landed softly on the floor on buttocks. She also could not get out of bed think to have yesterday and hit her head but no major swelling, hematoma or loss of consciousness. Patient denies fever but she is always cold. She has chronic cough but no recent change of shortness of breath. She had 1 dose of COVID-vaccine in July 2021. Denies recent URI symptoms including runny nose postnasal drip or sore throat. History of smoking started in 20s and quit in 2014. Patient denies burning micturition, increased frequency urgency or urinary retention. When she came to ED she was very dehydrated and she was given 2 L of IV normal saline bolus then had a small dark-colored urine. She also had bowel movement today. No abdominal pain. Denies back pain or new recent cold or strokelike symptoms. In ED, her BP was low although did not meet hypotension criteria and mild sinus tachycardia. Patient initial evaluation consistent with possibility or clinical suspicion of of sepsis because of UTI and was given 1 dose of IV ceftriaxone further admitted. [facility] Medical History Abnormal cardiac enzyme level Arrhythmia Former smoker Graves disease HLD (hyperlipidemia) Hypothyroidism Restless leg syndrome Home Medications clonazepam 1 mg tablet 2 mg PO QHS ANXIETY 12/28/20 [History Last Taken 12/27/20] levothyroxine 50 mcg tablet 50 mcg PO SANCHEZ THYROID 12/28/20 [History Last Taken 12/26/20] levothyroxine 88 mcg tablet 88 mcg PO MOTUWETHFRSA THYROID 12/28/20 [History Last Taken 12/27/20] aspirin 81 mg tablet,delayed release 81 mg PO DAILY #90 tabs 12/29/20 [Rx Last Taken Unknown] tramadol 50 mg tablet 50 mg PO Q6H PRN pain 3 days #12 tabs 03/14/21 [Rx Last Taken Unknown] cholecalciferol (vitamin D3) 10 mcg (400 unit) capsule (Vitamin D3) 20 mcg PO DAILY 04/02/22 [History Last Taken Unknown] Allergy/AdvReac Type Severity Reaction Status Date / Time cheese Allergy Hives Verified 04/02/22 08:44 chocolate flavor Allergy Rash Verified 04/02/22 08:44 Penicillins [PCN] Allergy Swelling Verified 04/02/22 08:44 Family History no significant family his Surgical History History of appendectomy History of hysterectomy Social History Smoking Status: Former smoker smoking status stop date: 06/04/14 ROS ROS Narrative Constitutional: Reports fatigue and weakness, could not move. HEENT: Chronic cough. Ex-smoker. Reports systems reviewed and no addt'l complaints, except as documented Respiratory/Chest: Denies chest pain, shortness of breath at rest or with exertion Gastrointestinal: Mild nausea. Denies coffee ground emesis, hematemesis or vomiting Genitourinary: Denies burning urination or new urinary tract symptoms Musculoskeletal: Generalized weakness and especially lower extremity weakness. Mild joint pain, arthritis and limited range of motion. Neurologic: Denies seizure-like activity. No focal one-sided numbness tingling or weakness. No focal strokelike symptoms. skin: No ulcer. No rash Endocrinology: Reports systems reviewed and no addt'l complaints, except as documented Hematologic/Lymphatic: Reports systems reviewed and no addt'l complaints, except as documented Rest 14 ROS are negative except as mentioned in HPI Vital Signs Vital Signs Vital Signs: 04/02/22 08:45 04/02/22 09:20 04/02/22 09:22 Temperature 98.8 F 98.8 F Temperature Source Temporal Temporal Pulse Rate 105 H 105 H Pulse Rate [Lying] Pulse Rate [Sitting (for 1 minute prior to obtaining)] Pulse Rate [Standing (for 1 minute prior to obtaining)] Respiratory Rate 16 16 Respiratory Effort Normal Blood Pressure 96/53 L 96/53 L Blood Pressure [Lying] Blood Pressure [Sitting (for 1 minute prior to obtaining)] Blood Pressure [Standing (for 1 minute prior to obtaining)] Blood Pressure Mean 67 67 Blood Pressure Mean [Lying] Blood Pressure Mean [Sitting (for 1 minute prior to obtaining)] Blood Pressure Mean [Standing (for 1 minute prior to obtaining)] Pulse Ox 93 93 Oxygen Delivery Method Room Air Room Air 04/02/22 10:37 04/02/22 11:00 04/02/22 12:00 Temperature 98.2 F 98.3 F Temperature Source Oral Oral Pulse Rate 97 92 Pulse Rate [Lying] 100 Pulse Rate [Sitting (for 1 minute prior to obtaining)] 101 H Pulse Rate [Standing (for 1 minute prior to obtaining)] 98 Respiratory Rate 20 H 20 H Respiratory Effort Blood Pressure 118/59 L 111/68 Blood Pressure [Lying] 110/58 L Blood Pressure [Sitting (for 1 minute prior to obtaining)] 122/58 H Blood Pressure [Standing (for 1 minute prior to obtaining)] 121/57 H Blood Pressure Mean 78 82 Blood Pressure Mean [Lying] 75 Blood Pressure Mean [Sitting (for 1 minute prior to obtaining)] 79 Blood Pressure Mean [Standing (for 1 minute prior to obtaining)] 78 Pulse Ox 92 92 Oxygen Delivery Method Room Air Room Air Weight Weight: 120 lb Body Mass Index (BMI) 20.0 Physical Exam Narrative General: Awake, alert, fatigued, oriented x3 HEENT: Oral mucosa dry. Atraumatic, PERRLA, EOMI, Normocephalic Oral: No Gingival or Mucosal Lesions/ Ulcerations Neck: Supple, No JVD, Negative Carotid Bruits Lungs: Air entry diminished in bilateral lung bases. No crepitation/rhonchi Cardiovascular: Regular rate, Regular Rhythm, Normal S1, Normal S2, No murmurs Abdomen: Bowel Sounds Present, Soft, Non Tender, Non-Distended : No renal angle tenderness. No suprapubic tenderness. Extremities: No edema, Capillary Refill Less than 3 Seconds Skin: No rashes, No breakdown Musculoskeletal: Mild tenderness of right thigh. Muscle strength 4/5 at knee and hip joints. ROM slightly restricted at knee and hip joints. Neurological: Cranial nerves II-XII grossly intact, DTR 2+/4 and Symmetrical, Neuro grossly intact Psych/Mental Status: Flat affect. Results Lab / Micro Data Result Diagrams: 04/02/22 09:16 04/02/22 09:16 Labs: Laboratory Results - last 24 hr 04/02/22 09:16: WBC 15.1 H, RBC 4.95, Hgb 15.2 H, Hct 44.8, MCV 90.5, MCH 30.7, MCHC 33.9, RDW Std Deviation 42.1, RDW Coeff of Ruthie 12.6, Plt Count 257, MPV 10.4, Immature Gran % (Auto) 0.600, Neut % (Auto) 78.2 H, Lymph % (Auto) 8.7 L, [place] % (Auto) 10.8 H, Eos % (Auto) 0.9, Baso % (Auto) 0.8, Absolute Neuts (auto) 11.8 H, Absolute Lymphs (auto) 1.31, Nucleated RBC % 0, Diff Path Review October04/02/22 09:16: Sodium 134 L, Potassium 3.3 L, Chloride 97 L, Carbon Dioxide 26.0, Anion Gap 11, BUN 21 H, Creatinine 1.19 H, Estim Creat Clear Calc 37.80, Est GFR (MDRD) Af Amer 58 L, Est GFR (MDRD) Non-Af 48 L, BUN/Creatinine Ratio 17.6, Glucose 106, Calcium 9.2, Total Bilirubin 2.40 H, AST 28, ALT 15, Alkaline Phosphatase 81, Total Creatine Kinase 245 H, Troponin I High Sens 56 H, Total Protein 7.9, Albumin 3.2, Globulin 4.7 H, Albumin/Globulin Ratio 0.7 L, Lipase 34 L, TSH 11.50 H, Free T4 1.15, Free T3 pg/dL 0.7 L 04/02/22 09:16: Lactic Acid 2.1 H* 04/02/22 12:00: Urine Color Yellow, Urine Clarity Sl. Cloudy, Urine pH 5.0, Ur Specific [place] 1.015, Urine Protein 15 H, Urine Glucose (UA) Normal, Urine Ketones 5 H, Urine Occult Blood 250 H, Urine Nitrite Negative, Urine Bilirubin Negative, Urine Urobilinogen Normal, Ur Leukocyte Esterase 500 H, Urine RBC 0 SEEN, Urine WBC 10-25 SEEN, Ur Squamous Epith Cells 0-5 SEEN, Urine Bacteria 3+, Urine Mucus 0 SEEN Micro: Microbiology 04/02/22 10:10 Nasal Secretion SARS-CoV-2 & FLU Antigen (Rapid) - Final Rhythm Strip Rhythm Strip: Sinus Rhythm Rate: 96 Ectopy: None Radiology Impression Brain CT 04/02/22 10:01 IMPRESSION: No acute intracranial process identified. Chronic involutional and white matter changes. Electronically Signed: Basilia Romero MD at 11:17 EDT , Chest X-Ray 04/02/22 10:01 IMPRESSION: No acute cardiopulmonary process identified. Mild scarring in the lungs. Electronically Signed: Basilia Romero MD at 11:10 EDT , Assessment & Plan Assessment/Plan (1) UTI (urinary tract infection): (2) Sepsis: PLAN: Plan 71-year-old female came to ED for generalized weakness, fall, clinical criteria and labs raised suspicion of sepsis probably due to UTI 1. Clinical suspicion/possibility of sepsis mostly due to UTI: Patient is being admitted to PCU. The patient presented with suspicion of sepsis most likely due to UTI with acute sepsis-related organ dysfunction as evidenced by lactic acidosis, INR 1.5, mild hyperbilirubinemia total bilirubin 2.4 and acute kidney injury, creatinine more than 50% baseline. Patient had 30 mill per KG fluid bolus resuscitation as per sepsis protocol and blood pressure and heart rate improved in normal range. No fever. Mild leukocytosis with left shift. UA shows WBC 10-25 cells, LE 500, negative nitrite, bacteria 3+. Blood cultures x2 urine culture ordered. 2. Hypothyroidism: Patient is on Synthroid. TSH and free T4 ordered for tomorrow AM. 3. Previous hospitalization for left-sided paresthesia and left-sided neck pain with elevated troponin in December 2020: Her work-up was negative for acute stroke. CT C-spine showed multilevel degenerative joint changes. At that time nuclear stress test was negative for stress-induced ischemia. 2D echo did not show gross structural abnormality. EF 65%. 4 generalized weakness and fall at home: Patient had CT head in ED did not show acute abnormality. Chest x-ray did not show acute abnormality but chronic scarring. DVT prophylaxis ?Lovenox Living will/advanced directive/end of life care: Patient does have living will or advanced directive. Her daughter is power of regulatory attorney for health. After discussion of benefits/risks procedures involved with full code, DNR CC arrest and DNR CC, the patient opted for DNRCC arrest with no intubation Patient does not want artificial life support including intubation, tube feed, ventilator and/chest compression, central venous catheter, vasopressor and DC shock if needed Total time spent in [id number] encounter in discussion of advanced directive 16 minutes. Microbiology Past 72 Hours 04/02/22 10:10 Nasal Secretion SARS-CoV-2 & FLU Antigen (Rapid) - Final Laboratory Results 04/02/22 09:16: WBC 15.1 H, RBC 4.95, Hgb 15.2 H, Hct 44.8, MCV 90.5, MCH 30.7, MCHC 33.9, RDW Std Deviation 42.1, RDW Coeff of Ruthie 12.6, Plt Count 257, MPV 10.4, Immature Gran % (Auto) 0.600, Neut % (Auto) 78.2 H, Lymph % (Auto) 8.7 L, [place] % (Auto) 10.8 H, Eos % (Auto) 0.9, Baso % (Auto) 0.8, Absolute Neuts (auto) 11.8 H, Absolute Lymphs (auto) 1.31, Nucleated RBC % 0, Diff Path Review October04/02/22 09:16: Sodium 134 L, Potassium 3.3 L, Chloride 97 L, Carbon Dioxide 26.0, Anion Gap 11, BUN 21 H, Creatinine 1.19 H, Estim Creat Clear Calc 37.80, Est GFR (MDRD) Af Amer 58 L, Est GFR (MDRD) Non-Af 48 L, BUN/Creatinine Ratio 17.6, Glucose 106, Calcium 9.2, Total Bilirubin 2.40 H, AST 28, ALT 15, Alkaline Phosphatase 81, Total Creatine Kinase 245 H, Troponin I High Sens 56 H, Total Protein 7.9, Albumin 3.2, Globulin 4.7 H, Albumin/Globulin Ratio 0.7 L, Lipase 34 L, TSH 11.50 H, Free T4 1.15, Free T3 pg/dL 0.7 L 04/02/22 09:16: Lactic Acid 2.1 H* 04/02/22 09:16: Phosphorus 3.2, Magnesium 2.2 04/02/22 12:00: Urine Color Yellow, Urine Clarity Sl. Cloudy, Urine pH 5.0, Ur Specific [place] 1.015, Urine Protein 15 H, Urine Glucose (UA) Normal, Urine Ketones 5 H, Urine Occult Blood 250 H, Urine Nitrite Negative, Urine Bilirubin Negative, Urine Urobilinogen Normal, Ur Leukocyte Esterase 500 H, Urine RBC 0 SEEN, Urine WBC 10-25 SEEN, Ur Squamous Epith Cells 0-5 SEEN, Urine Bacteria 3+, Urine Mucus 0 SEEN 04/02/22 13:45: PT 17.4 H, INR 1.5, APTT 40.6 H 04/02/22 14:30: Lactic Acid 1.3 Clinical Impression(s) from Imaging Studies Brain CT 04/02/22 10:01 IMPRESSION: No acute intracranial process identified. Chronic involutional and white matter changes. Chest X-Ray 04/02/22 10:01 IMPRESSION: No acute cardiopulmonary process identified. Mild scarring in the lungs. Charges/Coding Visit Charges Inpatient E&M: 62430 Init Hosp L3 Procedures Hospitalists Procedures: 46028 Advncd Care Plan 30 Min
[2022-04-02] MEDS: Ceftriaxone 1 GM/50 ML BAG IV (13:28)
[2022-04-02 13:59] LABS: International Normalized Ratio 1.5; Prothrombin Time (Protime)PT. 17.4 SECONDS (11.7-14.9)
[2022-04-02 14:00] LABS: Partial Thromboplast Time 40.6 Seconds (24.1-36.2)
[2022-04-02 14:09] LABS: Reflex Lactate? Y
[2022-04-02 14:17] LABS: Magnesium 2.2 mg/dL (1.6-2.6); Phosphorus 3.2 mg/dL (2.5-4.9)
[2022-04-02 15:06] LABS: Lactic Acid 1.3 mmol/L (0.4-1.9)
[2022-04-02] MEDS: Levothyroxine 50 MCG Tablet PO (15:11)
[2022-04-02] MEDS: Ibuprofen 400 MG Tablet PO (15:34)
[2022-04-02] MEDS: clonazePAM 1 MG Tablet PO (21:19)
[2022-04-03] VITALS (12 sets, daily range): BP systolic 98–160; BP diastolic 44–72; PULSE 81–99; RESP 16–20; TEMP 36.1–37.6; O2SAT 91–97
--- NOTE | 2022-04-03 04:37 | EKG12_ITS ---
Test Reason : CP Blood Pressure : / mmHG Vent. Rate : 093 BPM Atrial Rate : 093 BPM P-R Int : 156 ms QRS Dur : 098 ms QT Int : 358 ms P-R-T Axes : 030 010 049 degrees QTc Int : 445 ms Normal sinus rhythm Normal ECG When compared with ECG of 02-APR-2022 10:25, MANUAL COMPARISON REQUIRED, DATA IS UNCONFIRMED Confirmed by ОЛЬГА FRANKS, GIRISH ([id number]), editor department UVALDO KRUSE ([id number]) on 04/03/2022 12:54:10 PM Referred By: GLORIA Confirmed By:GRIISH ROLON MD
[2022-04-03] MEDS: Enoxaparin 40 MG/0.4 ML Syringe SC (05:05)
[2022-04-03] MEDS: Ibuprofen 400 MG Tablet PO (05:05)
[2022-04-03] MEDS: Levothyroxine 88 MCG Tablet PO (05:05)
--- NOTE | 2022-04-03 05:55 | US_ITS ---
STUDY: RENAL ULTRASOUND - COMPLETE REASON FOR EXAM: Female, 71 years old. UTI R/O Pyelonephritis TECHNIQUE: Ultrasound evaluation of the kidneys was performed with real-time and static ceron-scale imaging. COMPARISON: None. FINDINGS: RIGHT KIDNEY: Normal location of the right kidney, which is normal in size. The right kidney measures 10.8 x 5.1 x 4.5 cm. There is a normal cortex of the right kidney. The renal cortex measures 1.1 cm. There is no right renal mass or cyst. There are no right renal calculi. There is no right hydronephrosis. DISTAL RIGHT URETER: There is non-visualization of the distal right ureter. There is no demonstrated right ureterovesical junction calculus. There is a visualized right ureteral jet. LEFT KIDNEY: Normal location of the left kidney, which is normal in size. The left kidney measures 10.6 x 4.6 x 5.7 cm. There is a normal cortex of the left kidney. The renal cortex measures 1 cm. There is a cyst measuring 9 x 8 x 6 mm. There are no left renal calculi. There is no left hydronephrosis. DISTAL LEFT URETER: There is non-visualization of the distal left ureter. There is no demonstrated left ureterovesical junction calculus. There is a visualized left ureteral jet. BLADDER: The distended urinary bladder has a volume of 287.33 ml. There is a normal wall thickness of the distended urinary bladder. There is no demonstrated mass within the urinary bladder. There are no demonstrated bladder calculi. US/Kidney and Bladder IMPRESSION: Tiny left renal cyst otherwise no significant abnormality CT recommended for further assessment if clinically warranted Electronically Signed: Sylvester Jung MD at 18:44 EDT ,
[2022-04-03 07:00] LABS: Absolute Lymphocyte Count 0.99 X10^3/uL (0.83-4.51); Absolute Neutrophil Count 9.6 X10^3/uL (2.0-7.7); Basophil# 0.06 X10^3/uL; Basophil% 0.5 % (0-1); Eosinophil# 0.03 X10^3/uL; Eosinophils% 0.3 % (0-5); Hematocrit 36.4 % (37-47); Hemoglobin 12.5 g/dL (12.0-15.0); Lymphocyte # 0.99 X10^3/ul (0.83-4.51); Lymphocyte % 8.4 % (19-41); Mean Corp Hgb Conc 34.3 g/dL (32-36); Mean Corpuscular Hgb 31.6 pg (27.0-32.0); Mean Corpuscular Volume 92.2 fL (81-99); Monocyte% 8.4 % (0-10); NRBC Flagged by Analyzer 0 % (0-5); Neutrophil # 9.62 X10^3/uL (2.7-7.7); Neutrophil % 81.1 % (47-70); Platelet Count 234 K/mm3 (150-450); RBC Distribution Width CV 12.8 % (11.6-14.6); RBC Distribution Width SD 43.4 fl (35.1-43.9); Red Blood Count 3.95 M/mm3 (4.2-5.4); White Blood Count 11.9 K/mm3 (4.4-11.0)
[2022-04-03 07:17] LABS: Anion Gap 9 (5-15); BUN 13 mg/dL (7-18); BUN/Creat Ratio 19.9 RATIO (10-20); Calcium,Total 8.8 mg/dL (8.5-10.1); Chloride 105 mmol/L (98-107); Creatinine, Serum 0.65 mg/dL (0.55-1.02); EST Glomerular Filtration Rate 95 mL/min (>60); Est Glom Filt Rate - Afr Amer 115 mL/min (>60); Glucose 97 mg/dL (74-106); Potassium 3.3 mmol/L (3.5-5.1); Sodium Level 137 mmol/L (136-145); Thyroid Stim Hormone (TSH) 9.16 uIU/mL (0.358-3.74)
--- NOTE | 2022-04-03 08:27 | PN.HOSP_ITS ---
Subjective Subjective Follow-up for bilateral leg weakness, UTI Patient heart rate and blood pressure much improved. Overall she feels better but she still has leg weakness. She developed over 2 days before admission. MRI brain, lumbar and thoracic spine ordered. MRI brain negative for acute infarct. Objective Data Objective Data Vital Signs: Vital Signs Temp Pulse Resp BP Pulse Ox O2 Del Method O2 Flow Rate 98.6 F 87 16 109/44 L 92 Nasal Cannula 2 04/03/22 08:07 04/03/22 08:07 04/03/22 08:07 04/03/22 08:07 04/03/22 08:07 04/03/22 08:07 04/03/22 08:07 Oxygen Flow Rate (L/min) 2 Oxygen Delivery Method Nasal Cannula Weight: 149 lb 14.629 oz Body Mass Index (BMI) 24.9 Intake & Output: Intake and Output for Last 24 Hours 04/01/22 04/02/22 04/03/22 23:59 23:59 23:59 Intake Total 3270 / 3270 360 / 360 Output Total 900 / 900 675 / 675 Balance 2370 / 2370 -315 / -315 Lab / Micro Data Result Diagrams: 04/03/22 05:47 04/03/22 05:47 Labs: Laboratory Results - last 24 hr 04/02/22 09:16: WBC 15.1 H, RBC 4.95, Hgb 15.2 H, Hct 44.8, MCV 90.5, MCH 30.7, MCHC 33.9, RDW Std Deviation 42.1, RDW Coeff of Ruthie 12.6, Plt Count 257, MPV 10.4, Immature Gran % (Auto) 0.600, Neut % (Auto) 78.2 H, Lymph % (Auto) 8.7 L, [place] % (Auto) 10.8 H, Eos % (Auto) 0.9, Baso % (Auto) 0.8, Absolute Neuts (auto) 11.8 H, Absolute Lymphs (auto) 1.31, Nucleated RBC % 0, Diff Path Review October04/02/22 09:16: Sodium 134 L, Potassium 3.3 L, Chloride 97 L, Carbon Dioxide 26.0, Anion Gap 11, BUN 21 H, Creatinine 1.19 H, Estim Creat Clear Calc 37.80, Est GFR (MDRD) Af Amer 58 L, Est GFR (MDRD) Non-Af 48 L, BUN/Creatinine Ratio 17.6, Glucose 106, Calcium 9.2, Total Bilirubin 2.40 H, AST 28, ALT 15, Alkaline Phosphatase 81, Total Creatine Kinase 245 H, Troponin I High Sens 56 H, Total Protein 7.9, Albumin 3.2, Globulin 4.7 H, Albumin/Globulin Ratio 0.7 L, Lipase 34 L, TSH 11.50 H, Free T4 1.15, Free T3 pg/dL 0.7 L 04/02/22 09:16: Lactic Acid 2.1 H* 04/02/22 09:16: Phosphorus 3.2, Magnesium 2.2 04/02/22 12:00: Urine Color Yellow, Urine Clarity Sl. Cloudy, Urine pH 5.0, Ur Specific [place] 1.015, Urine Protein 15 H, Urine Glucose (UA) Normal, Urine Ketones 5 H, Urine Occult Blood 250 H, Urine Nitrite Negative, Urine Bilirubin Negative, Urine Urobilinogen Normal, Ur Leukocyte Esterase 500 H, Urine RBC 0 SEEN, Urine WBC 10-25 SEEN, Ur Squamous Epith Cells 0-5 SEEN, Urine Bacteria 3+, Urine Mucus 0 SEEN 04/02/22 13:45: PT 17.4 H, INR 1.5, APTT 40.6 H 04/02/22 14:30: Lactic Acid 1.3 04/02/22 16:30: COVID-19 (ROMULO) Not Detected 04/03/22 05:47: WBC 11.9 H, RBC 3.95 L, Hgb 12.5, Hct 36.4 L, MCV 92.2, MCH 31.6, MCHC 34.3, RDW Std Deviation 43.4, RDW Coeff of Ruthie 12.8, Plt Count 234, MPV 10.0, Immature Gran % (Auto) 1.300 H, Neut % (Auto) 81.1 H, Lymph % (Auto) 8 .4 L, [place] % (Auto) 8.4, Eos % (Auto) 0.3, Baso % (Auto) 0.5, Absolute Neuts (auto) 9.6 H, Absolute Lymphs (auto) 0.99, Nucleated RBC % 0 04/03/22 05:47: Sodium 137, Potassium 3.3 L, Chloride 105, Carbon Dioxide 23.0, Anion Gap 9, BUN 13, Creatinine 0.65, Estim Creat Clear Calc 47.10, Est GFR (MDRD) Af Amer 115, Est GFR (MDRD) Non-Af 95, BUN/Creatinine Ratio 19.9, Glucose 97, Calcium 8.8, TSH 9.16 H Micro: Microbiology 04/02/22 10:10 Nasal Secretion SARS-CoV-2 & FLU Antigen (Rapid) - Final Radiography Diagnostic Testing: Radiology Impression Brain CT 04/02/22 10:01 IMPRESSION: No acute intracranial process identified. Chronic involutional and white matter changes. Electronically Signed: Basilia Romero MD at 11:17 EDT , Chest X-Ray 04/02/22 10:01 IMPRESSION: No acute cardiopulmonary process identified. Mild scarring in the lungs. Electronically Signed: Basilia Romero MD at 11:10 EDT , Rhythm Strip Rhythm Strip: Sinus Rhythm Rate: 96 Ectopy: None Physical Exam Narrative Seen and examined. Patient denies any loss in weight actually seeing in my little bit. Her weight is around 140 to 150 pound. General: Awake, alert, fatigued, oriented x3 HEENT: Oral mucosa dry. Atraumatic, PERRLA, EOMI, Normocephalic Oral: No Gingival or Mucosal Lesions/ Ulcerations Neck: Supple, No JVD, Negative Carotid Bruits Lungs: Air entry diminished in bilateral lung bases. No crepitation/rhonchi Cardiovascular: Regular rate, Regular Rhythm, Normal S1, Normal S2, No murmurs Abdomen: Bowel Sounds Present, Soft, Non Tender, Non-Distended : No renal angle tenderness. No suprapubic tenderness. Extremities: No edema, Capillary Refill Less than 3 Seconds Skin: No rashes, No breakdown Musculoskeletal/spine: No tenderness over thoracic or lumbar spine. No acute tenderness over thigh/calf muscle. Muscle strength 4/5 at knee and hip joints. Left leg more weaker than right leg. ROM slightly restricted at knee and hip joints. Neurological: Cranial nerves II-XII grossly intact, DTR 2+/4. Gross sensation symmetrical on both sides. Psych/Mental Status: Flat affect. Assessment & Plan Assessment/Plan (1) UTI (urinary tract infection): (2) Sepsis: PLAN: Plan 71-year-old female came to ED for generalized weakness, fall, clinical criteria and labs raised suspicion of sepsis probably due to UTI 1. Clinical suspicion/possibility of sepsis mostly due to UTI: Patient is being admitted to PCU. The patient presented with suspicion of sepsis most likely due to UTI with acute sepsis-related organ dysfunction as evidenced by lactic acidosis, INR 1.5, mild hyperbilirubinemia total bilirubin 2.4 and acute kidney injury, creatinine more than 50% baseline. Patient had 30 mill per KG fluid bolus resuscitation as per sepsis protocol and blood pressure and heart rate improved in normal range. No fever. Mild leukocytosis with left shift. UA shows WBC 10-25 cells, LE 500, negative nitrite, bacteria 3+. Blood cultures x2 urine culture ordered. 04/03: Patient blood pressure systolic 120s. Patient well resuscitated. COVID- 19 PCR negative. Urine culture preliminary more than 100,000 colonies GNR.. Continue IV antibiotic. 2. Bilateral lower extremity weakness, paraparesis, exact etiology unclear: MRI brain did not show acute infarct. Thoracic spine MRI reported moderate disc degeneration without evidence for contusion or spinal stenosis. Reported low signal change on T1, increased on signal on T2 without any concrete diagnosis. Intraosseous hemangiomata within T9 and T8 vertebral bodies. CK mildly elevated. Repeat CK, aldolase and myoglobin ordered. MRI lumbar spine pending. Hypothyroidism: Patient is on Synthroid. TSH 11.5. Repeat TSH 9.16. Free T4 1.15. TSH mildly elevated, Synthroid was increased to suppress TSH. 3. Previous hospitalization for left-sided paresthesia and left-sided neck pain with elevated troponin in December 2020: Her work-up was negative for acute stroke. CT C-spine showed multilevel degenerative joint changes. At that time nuclear stress test was negative for stress-induced ischemia. 2D echo did not show gross structural abnormality. EF 65%. 4 generalized weakness and fall at home: Patient had CT head in ED did not show acute abnormality. Chest x-ray did not show acute abnormality but chronic scarring. DVT prophylaxis ?Lovenox Total time of the visit including total time spent in counseling or coordination of care, (more than 50% of the total time, spent in obtaining medical information from nurses and other ancillary care providers,explaining to the patient about labs, imaging, diagnosis and management of active complex medical conditions), detailed exam, evaluation of paraparesis, review of labs and imaging is 40 minutes. Microbiology Past 72 Hours 04/02/22 12:00 Urine, Clean Catch Urine Culture - Preliminary Gram negative rahul 04/02/22 12:35 Blood Culture (Wb) - Right Wrist Blood Culture - Preliminary No growth in 48 hours. 04/02/22 12:15 Blood Culture (Wb) - Left Forearm Blood Culture - Preliminary No growth in 48 hours. 04/02/22 10:10 Nasal Secretion SARS-CoV-2 & FLU Antigen (Rapid) - Final Laboratory Results 04/02/22 09:16: Diff Path Review Reviewed 04/02/22 16:30: COVID-19 (ROMULO) Not Detected And is free T4 04/03/22 05:47: WBC 11.9 H, RBC 3.95 L, Hgb 12.5, Hct 36.4 L, MCV 92.2, MCH 31.6, MCHC 34.3, RDW Std Deviation 43.4, RDW Coeff of Ruthie 12.8, Plt Count 234, MPV 10.0, Immature Gran % (Auto) 1.300 H, Neut % (Auto) 81.1 H, Lymph % (Auto) 8.4 L, [place] % (Auto) 8.4, Eos % (Auto) 0.3, Baso % (Auto) 0.5, Absolute Neuts (auto) 9.6 H, Absolute Lymphs (auto) 0.99, Nucleated RBC % 0 04/03/22 05:47: Sodium 137, Potassium 3.3 L, Chloride 105, Carbon Dioxide 23.0, Anion Gap 9, BUN 13, Creatinine 0.65, Estim Creat Clear Calc 47.10, Est GFR (MDRD) Af Amer 115, Est GFR (MDRD) Non-Af 95, BUN/Creatinine Ratio 19.9, Glucose 97, Calcium 8.8, TSH 9.16 H Clinical Impression(s) from Imaging Studies Brain CT 04/02/22 10:01 IMPRESSION: No acute intracranial process identified. Chronic involutional and white matter changes. Electronically Signed: Basilia Romero MD at 11:17 EDT , Chest X-Ray 04/02/22 10:01 IMPRESSION: No acute cardiopulmonary process identified. Mild scarring in the lungs. Brain MRI 04/03/22 09:34 IMPRESSION: Mild atrophy and periventricular white matter ischemic changes without evidence for acute infarct. Thoracic Spine MRI 04/03/22 09:34 IMPRESSION: Multilevel disc degeneration without evidence for contusion spinal stenosis or cord compression.. Nonspecific lesions within T5 and T6 vertebral bodies. Scan with contrast would be helpful for further evaluation to exclude possibility of metastasis if clinically warranted. Living will/advanced directive/end of life care: Patient does have living will or advanced directive. Her daughter is power of workers compensation attorney for health. After discussion of benefits/risks procedures involved with full code, DNR CC arrest and DNR CC, the patient opted for DNRCC arrest with no intubation Patient does not want artificial life support including intubation, tube feed, ventilator and/chest compression, central venous catheter, vasopressor and DC s hock if needed Total time spent in [id number] encounter in discussion of advanced directive 16 minutes. Charges/Coding Visit Charges Inpatient E&M: 07032 Subs Hosp L3
--- NOTE | 2022-04-03 09:34 | MRI_ITS ---
STUDY: MRI LUMBAR SPINE WITHOUT CONTRAST REASON FOR EXAM: Female, 71 years old. B/L leg weakness, Lt and gt;Rt for few days TECHNIQUE: Standardized fat and water weighted pulse sequences were obtained in the sagittal and axial planes. COMPARISON: None FINDINGS: T12-L1: Normal endplates. Normal disc height, hydration and morphology. Normal bilateral facet joints. Normal central canal and bilateral lateral recesses. Normal bilateral intervertebral neural foramina. Normal lumbar lordosis. There is no substantial scoliosis. Normal conus medullaris that terminates at T12-L1 L1-2: Normal endplates. Normal disc height, hydration and morphology. Normal bilateral facet joints. Normal central canal and bilateral lateral recesses. Normal bilateral intervertebral neural foramina. L2-3: Normal endplates. Normal disc height, hydration and morphology. Normal bilateral facet joints. Normal central canal and bilateral lateral recesses. Normal bilateral intervertebral neural foramina. L3-4: Normal endplates. Normal disc height, desiccation and mild annular bulge with small central disc protrusion.. Facet arthropathy and thickening of ligamenta flava. Mild narrowing of the central canal and bilateral lateral recesses. Moderate bilateral neuroforaminal stenosis L4-5: Normal endplates. Normal disc height, hydration and minimal annular bulge with tiny central annular tear but no focal disc protrusion... Mild facet arthropathy.. Normal central canal and bilateral lateral recesses. Mild bilateral neuroforaminal stenosis. L5-S1: Normal endplates. Normal disc height, hydration and morphology. Normal bilateral facet joints. Normal central canal and bilateral lateral recesses. Normal bilateral intervertebral neural foramina. Normal visualized sacral ala. Normal visualized paraspinous soft tissue structures. MRI/Spine Lumbar (Routine) IMPRESSION: No evidence for acute fracture or other significant bony pathology. Spinal stenosis at L4-5 and slightly more pronounced at L3-4 secondary to bulging annuli and facet arthropathy. Electronically Signed: Sylvester Jung MD at 17:09 EDT ,
--- NOTE | 2022-04-03 09:34 | MRI_ITS ---
STUDY: MRI BRAIN WITHOUT CONTRAST REASON FOR EXAM: Female, 71 years old. B/L Leg weakness TECHNIQUE: Standardized multiplanar fat and water weighted pulse sequences were obtained. COMPARISON: MRI of the brain 12/28/2020 FINDINGS: Mild atrophy and periventricular white matter ischemic change without mass effect or restricted diffusion. Normal bilateral basal ganglia. Normal thalami. There is no extra-axial fluid accumulation. Normal flow voids within the major intracranial circulation suggesting patency by spin echo criteria. Normal sella turcica, pituitary gland, infundibular stalk, optic chiasm and hypothalamus. Normal tectal plate and pineal gland. Normal midbrain, le[place] and medulla. Normal cerebellum. Normal basal cisterns. Normal bilateral temporal bones. Normal bilateral internal auditory canals. Postsurgical changes of the orbits. Normal visualized paranasal sinuses. Normal calvarium and skull base. Normal visualized soft tissue structures. Normal visualized upper cervical spine. MRI/Brain without Contrast IMPRESSION: Mild atrophy and periventricular white matter ischemic changes without evidence for acute infarct. Electronically Signed: Sylvester Jung MD at 16:36 EDT ,
--- NOTE | 2022-04-03 09:34 | MRI_ITS ---
STUDY: MRI THORACIC SPINE WITHOUT CONTRAST REASON FOR EXAM: Female, 71 years old. B/L leg weakness, Lt >Rt for few days TECHNIQUE: Standardized fat and water weighted pulse sequences were obtained in the sagittal and axial planes. COMPARISON: None. FINDINGS: Normal kyphosis of the thoracic spine. There is no substantial scoliosis. No evidence for acute fracture or subluxation. Interosseous hemangiomata within the T9 and T8 vertebral bodies Within the T5 and T6 vertebral body, there is low signal change on T1 which increases in signal on T2 and STIR sequence of uncertain etiology. Metastatic disease not entirely excluded. Limited repeat study with contrast would be helpful for further evaluation Intervertebral disc space heights are well-maintained. There is diffuse desiccation of disc at all levels but no evidence for disc protrusion spinal stenosis or cord compression. Normal visualized thoracic cord. Normal conus medullaris that terminates at T12-L1. The soft tissue structures are unremarkable. MRI/Spine Thoracic (Routine) IMPRESSION: Multilevel disc degeneration without evidence for contusion spinal stenosis or cord compression.. Nonspecific lesions within T5 and T6 vertebral bodies. Scan with contrast would be helpful for further evaluation to exclude possibility of metastasis if clinically warranted. Electronically Signed: Sylvester Jung MD at 16:44 EDT ,
[2022-04-03] MEDS: Aspirin E.C. 81 MG Tablet PO (09:41)
[2022-04-03] MEDS: Potassium Chloride Oral Tablet 20 MEQ 40 MEQ PO ×2 (09:41→12:25)
[2022-04-03] MEDS: Cholecalciferol (VIT D3) 25 MCG TABLET (1,000 UNITS) PO (09:41)
--- NOTE | 2022-04-03 10:15 | CASEMGMT ---
RN CM Face to Face with patient for initial transition planning/care coordination assessment. RN CM introduced self and role at [facility]. Patient lying in bed, alert and oriented. Patient willing to participate in assessment and is able to answer all questions appropriately. Care providers, pharmacy, and demographics verified. Patient wishes to discharge home, will monitor progress with therapy for possible HHC vs SNF. Patient states she has no further needs or concerns at this time. CM to follow for discharge planning needs that may arise. PCP: [facility] Specialists: none Preferred Pharmacy: [facility] retail at discharge Insurance: [employer] [facility] Prescription Benefit: yes Living Will/HPOA: yes, daughter Polo Mckeon LNOK: daughter Living Arrangements: Patient lives alone in a 2 story townhouse. Patient states she is independent and able to ambulate stairs Transportation: self, daughter DME/HHC: Patient denies DME in the home. No previous HHC or SNF. Disposition Plan: TBD, Outpt PT vs HHC vs SNF pending progress with therapy. May benefit from walker at discharge. Shani LUNAN, RN, CM
[2022-04-03 12:02] LABS: Pathologist Review Reviewed
[2022-04-03 17:25] LABS: CPK Total, Creatine Kinase 161 U/L (26-192)
--- NOTE | 2022-04-03 19:50 | NURSING ---
Pts primary rn aware of the + blood cultures at this time.
[2022-04-03] MEDS: clonazePAM 1 MG Tablet PO (20:16)
[2022-04-04] VITALS (8 sets, daily range): BP systolic 108–134; BP diastolic 61–64; PULSE 93–105; RESP 18; TEMP 36.4–37.6; O2SAT 91–95
[2022-04-04] MEDS: Enoxaparin 40 MG/0.4 ML Syringe SC (05:09)
[2022-04-04] MEDS: Levothyroxine 100 MCG Tablet PO (05:10)
[2022-04-04] MEDS: Aspirin E.C. 81 MG Tablet PO (10:41)
[2022-04-04] MEDS: Cholecalciferol (VIT D3) 25 MCG TABLET (1,000 UNITS) PO (10:41)
[2022-04-04] MEDS: Ibuprofen 400 MG Tablet PO (10:44)
--- NOTE | 2022-04-04 11:15 | DCINST_ITS ---
Discharge Instructions Follow Up Care Test Results: Test results from this visit will be discussed in further detail at your follow- up appointment, if applicable. Discharge Plan Admission Admit Date/Time: 04/02/22 13:16 Primary Reason for Your Visit: UTI with sepsis Attending Provider: Satinder Lamb Primary Care Provider: Leidy Beyer Discharge Orders/Prescriptions Prescriptions: New cefadroxil 500 mg capsule 500 mg PO BID Qty: 12 0RF levothyroxine 100 mcg Tablet 100 mcg PO [id number] Qty: 30 0RF Continued clonazepam 1 mg tablet 2 mg PO QHS levothyroxine 50 mcg tablet 50 mcg PO SANCHEZ aspirin 81 mg tablet,delayed release (DR/EC) 81 mg PO DAILY Qty: 90 0RF tramadol 50 mg tablet 50 mg PO Q6H PRN (Reason: pain) 3 Days Qty: 12 0RF cholecalciferol (vitamin D3) [Vitamin D3] 10 mcg (400 unit) capsule 20 mcg PO DAILY Label Comments: 1 capsule by mouth as directed Discontinued levothyroxine 88 mcg tablet 88 mcg PO [id number] Referrals / Follow Up: Leidy Beyer DO [Primary Care Provider] - Within 1 Month Disposition Disposition (needs filled in before D/C Order can be placed): Home, Self Care
--- NOTE | 2022-04-04 11:20 | DS.PCM_ITS ---
Providers Date of Admission: 04/02/22 Primary Care Physician: Dr. Leidy Beyer DO Reason For Visit: UTI WITH SEPSIS Diagnosis Discharge Diagnosis (1) UTI (urinary tract infection): Status: Acute Code(s): N39.0 - Urinary tract infection, site not specified (2) Sepsis: Status: Acute Code(s): A41.9 - Sepsis, unspecified organism Medications at Discharge Home Medications clonazepam 1 mg tablet 2 mg PO QHS ANXIETY 12/28/20 levothyroxine 50 mcg tablet 50 mcg PO SANCHEZ THYROID 12/28/20 aspirin 81 mg tablet,delayed release 81 mg PO DAILY #90 tabs 12/29/20 tramadol 50 mg tablet 50 mg PO Q6H PRN pain 3 days #12 tabs 03/14/21 cholecalciferol (vitamin D3) 10 mcg (400 unit) capsule (Vitamin D3) 20 mcg PO DAILY 04/02/22 cefadroxil 500 mg capsule 500 mg PO BID #12 caps 04/04/22 levothyroxine 100 mcg tablet 100 mcg PO MoTuWeThFrSa@0600 #30 tabs 04/04/22 Hospital Course Summary of Care Provided Hospital Course: 71-year-old female came to ED for generalized weakness, fall, clinical criteria and labs raised suspicion of sepsis probably due to UTI 1. Clinical suspicion/possibility of sepsis mostly due to UTI: Patient is being admitted to PCU. The patient presented with suspicion of sepsis most likely due to UTI with acute sepsis-related organ dysfunction as evidenced by lactic acidosis, INR 1.5, mild hyperbilirubinemia total bilirubin 2.4 and acute kidney injury, creatinine more than 50% baseline. Patient had 30 mill per KG fluid bolus resuscitation as per sepsis protocol and blood pressure and heart rate improved in normal range. No fever. Mild leukocytosis with left shift. UA shows WBC 10-25 cells, LE 500, negative nitrite, bacteria 3+. Blood cultures x2 urine culture ordered. 04/03: Patient blood pressure systolic 120s. Patient well resuscitated. COVID- 19 PCR negative. Urine culture preliminary more than 100,000 colonies GNR.. Continue IV antibiotic. 04/04: Urine culture shows E. coli. Patient is discharged on cefadroxil for 6 more days. Leukocyte improved. 2. Bilateral lower extremity weakness, paraparesis, exact etiology unclear: MRI brain did not show acute infarct. Thoracic spine MRI reported moderate disc degeneration without evidence for contusion or spinal stenosis. Reported low signal change on T1, increased on signal on T2 without any concrete diagnosis. Intraosseous hemangiomata within T9 and T8 vertebral bodies. CK mildly elevated. Repeat CK, aldolase and myoglobin ordered. MRI lumbar spine pending. 04/04: CK level initially elevated but repeat normal. Myoglobin aldolase level pending. I think she has myalgia or mild local myopathy probably due to hy pothyroidism for polypharmacy rather than spinal cord or neuropathy for weakness. For above MRI finding of increased signal to without any concrete diagnosis but radiologist reported malignancy cannot be excluded therefore patient was given option for SOC teleneurology consult. She does not have weight loss, good appetite, works 12-hour shifts therefore my clinical suspicion of malignancy is low. She does not want to see SOC and then I gave the option to follow-up with outpatient neurologist Dr. Larose but she did not agree and wants to follow with PCP. This was discussed in presence of patient's daughter near the bedside. Hypothyroidism: Patient is on Synthroid. TSH 11.5. Repeat TSH 9.16. Free T4 1.15. TSH mildly elevated, Synthroid was increased to suppress TSH. 04/04: Prescription for increased dose of Synthroid sent to patient's preferred pharmacy. 3. Previous hospitalization for left-sided paresthesia and left-sided neck pain with elevated troponin in December 2020: Her work-up was negative for acute stroke. CT C-spine showed multilevel degenerative joint changes. At that time nuclear stress test was negative for stress-induced ischemia. 2D echo did not show gross structural abnormality. EF 65%. 4 generalized weakness and fall at home: Patient had CT head in ED did not show acute abnormality. Chest x-ray did not show acute abnormality but chronic scarring. DVT prophylaxis ?Lovenox Discharge medication reconciliation done. Discharge follow-up instructions completed. Discharge process discussed with the patient and all questions were answered to patient's satisfaction. Total time spent, exact 35 minutes on discharge meds reconciliation, examinatio n, coordination of care with nurses and ancillary staff, review of imaging and blood test and discussion with the patient on follow-up instructions. Microbiology Past 72 Hours 04/02/22 12:00 Urine, Clean Catch Urine Culture - Final Escherichia coli 04/02/22 12:35 Blood Culture (Wb) - Right Wrist Blood Culture - Preliminary Coag Negative Staph 04/02/22 12:15 Blood Culture (Wb) - Left Forearm Blood Culture - Preliminary No growth in 48 hours. 04/02/22 10:10 Nasal Secretion SARS-CoV-2 & FLU Antigen (Rapid) - Final Laboratory Results 04/04/22 11:35: WBC 12.9 H, RBC 4.39, Hgb 13.8, Hct 38.8, MCV 88.4, MCH 31.4, MCHC 35.6, RDW Std Deviation 41.7, RDW Coeff of Ruthie 12.7, Plt Count 276, MPV 10.0, Immature Gran % (Auto) 0.900, Neut % (Auto) 75.5 H, Lymph % (Auto) 12.3 L, [place] % (Auto) 10.0, Eos % (Auto) 0.8, Baso % (Auto) 0.5, Absolute Neuts (auto) 9.7 H, Absolute Lymphs (auto) 1.58, Nucleated RBC % 0 04/04/22 11:35: Sodium 136, Potassium 3.5, Chloride 102, Carbon Dioxide 27.0, Anion Gap 7, BUN 10, Creatinine 0.73, Estim Creat Clear Calc 47.10, Est GFR (MDRD) Af Amer 101, Est GFR (MDRD) Non-Af 84, BUN/Creatinine Ratio 13.7, Glucose 142 H, Calcium 9.3 Clinical Impression(s) from Imaging Studies Brain CT 04/02/22 10:01 IMPRESSION: No acute intracranial process identified. Chronic involutional and white matter changes. Electronically Signed: Basilia Romero MD at 11:17 EDT , Chest X-Ray 04/02/22 10:01 IMPRESSION: No acute cardiopulmonary process identified. Mild scarring in the lungs. Brain MRI 04/03/22 09:34 IMPRESSION: Mild atrophy and periventricular white matter ischemic changes without evidence for acute infarct. Thoracic Spine MRI 04/03/22 09:34 IMPRESSION: Multilevel disc degeneration without evidence for contusion spinal stenosis or cord compression.. Nonspecific lesions within T5 and T6 vertebral bodies. Scan with contrast would be helpful for further evaluation to exclude possibility of metastasis if clinically warranted. Living will/advanced directive/end of life care: Patient does have living will or advanced directive. Her daughter is power of finance attorney for health. After discussion of benefits/risks procedures involved with full code, DNR CC arrest and DNR CC, the patient opted for DNRCC arrest with no intubation Patient does not want artificial life support including intubation, tube feed, ventilator and/chest compression, central venous catheter, vasopressor and DC shock if needed Total time spent in [id number] encounter in discussion of advanced directive 16 minutes. Physical Exam Narrative Seen and examined. Patient denies any loss in weight actually seeing in my little bit. Her weight is around 140 to 150 pound. No loss of appetite fever. Patient out of bed sitting in the chair. She also walked in the hallway around the nursing station. Overall she feels good for discharge. General: Awake, alert, fatigued, oriented x3 HEENT: Oral mucosa dry. Atraumatic, PERRLA, EOMI, Normocephalic Oral: No Gingival or Mucosal Lesions/ Ulcerations Neck: Supple, No JVD, Negative Carotid Bruits Lungs: Air entry diminished in bilateral lung bases. No crepitation/rhonchi Cardiovascular: Regular rate, Regular Rhythm, Normal S1, Normal S2, No murmurs Abdomen: Bowel Sounds Present, Soft, Non Tender, Non-Distended : No renal angle tenderness. No suprapubic tenderness. Extremities: No edema, Capillary Refill Less than 3 Seconds Skin: No rashes, No breakdown Musculoskeletal/spine: No tenderness over thoracic or lumbar spine. Mild tenderness over thigh muscles, left more than right. She feels like ache not pain. Muscle strength 5/5 on right thigh and leg, 4+/5 on left thigh. ROM fu ll. Neurological: Cranial nerves II-XII grossly intact, DTR 2+/4. Gross sensation symmetrical on both sides. Psych/Mental Status: Flat affect. Weight / BMI Weight Weight: 149 lb 14.629 oz Body Mass Index (BMI) 24.9 ABG / Lab / Microbiology Data Result Diagrams: 04/04/22 11:35 04/04/22 11:35 Laboratory: Laboratory Results - last 24 hr 04/02/22 09:16: Diff Path Review Reviewed 04/03/22 05:47: Total Creatine Kinase 161 Microbiology: Microbiology 04/02/22 12:00 Urine, Clean Catch Urine Culture - Final Escherichia coli 04/02/22 12:35 Blood Culture (Wb) - Right Wrist Blood Culture - Preliminary Coag Negative Staph 04/02/22 12:15 Blood Culture (Wb) - Left Forearm Blood Culture - Preliminary No growth in 48 hours. 04/02/22 10:10 Nasal Secretion SARS-CoV-2 & FLU Antigen (Rapid) - Final Radiography Diagnostic Testing: Radiology Impression Renal Ultrasound 04/03/22 05:55 IMPRESSION: Tiny left renal cyst otherwise no significant abnormality CT recommended for further assessment if clinically warranted Electronically Signed: Sylvester Jung MD at 18:44 EDT , Brain MRI 04/03/22 09:34 IMPRESSION: Mild atrophy and periventricular white matter ischemic changes without evidence for acute infarct. Electronically Signed: Sylvester Jung MD at 16:36 EDT , Lumbar Spine MRI 04/03/22 09:34 IMPRESSION: No evidence for acute fracture or other significant bony pathology. Spinal stenosis at L4-5 and slightly more pronounced at L3-4 secondary to bulging annuli and facet arthropathy. Electronically Signed: Sylvester Jung MD at 17:09 EDT , Thoracic Spine MRI 04/03/22 09:34 IMPRESSION: Multilevel disc degeneration without evidence for contusion spinal stenosis or cord compression.. Nonspecific lesions within T5 and T6 vertebral bodies. Scan with contrast would be helpful for further evaluation to exclude possibility of metastasis if clinically warranted. Electronically Signed: Sylvester Jung MD at 16:44 EDT , Meaningful Use Info Meaningful Use Diagnoses (Choose all that apply): None applicable Discharge Plan Admission Admit Date/Time: 04/02/22 13:16 Primary Reason for Your Visit: UTI with sepsis Attending Provider: Satinder Lamb Primary Care Provider: Leidy Beyer Instructions Additional Instructions / Restrictions: Patient was given option for SOC Teleneurology consult but she said she did not want it. Advised with follow-up neurologist referral from PCP Dr. Larose Advised TSH and free T4 in about 6 weeks. Discharge Orders/Prescriptions Prescriptions: New cefadroxil 500 mg capsule 500 mg PO BID Qty: 12 0RF levothyroxine 100 mcg Tablet 100 mcg PO MoTuWeThFrSa@0600 Qty: 30 0RF Continued clonazepam 1 mg tablet 2 mg PO QHS levothyroxine 50 mcg tablet 50 mcg PO SANCHEZ aspirin 81 mg tablet,delayed release (DR/EC) 81 mg PO DAILY Qty: 90 0RF tramadol 50 mg tablet 50 mg PO Q6H PRN (Reason: pain) 3 Days Qty: 12 0RF cholecalciferol (vitamin D3) [Vitamin D3] 10 mcg (400 unit) capsule 20 mcg PO DAILY Label Comments: 1 capsule by mouth as directed Discontinued levothyroxine 88 mcg tablet 88 mcg PO [id number] Referrals / Follow Up: Leidy Beyer DO [Primary Care Provider] - Within 1 Month Jensen Larose MD [Non-Staff -Ordering Privileges] - Within 1 Month (Advised follow-up with neurologist for report of abnormal low signal change on T1 increased on T2 on MRI thoracic spine) Disposition Disposition (needs filled in before D/C Order can be placed): Home, Self Care Charges/Coding Visit Charges Inpatient E&M: 16444 Disch Hosp
--- NOTE | 2022-04-04 11:47 | CASEMGMT ---
Therapy is recommending addl therapy for pt at discharge and this JOSE BAH to room to discuss with pt. Pt declines need for any further therapy at discharge but would like list of exercises she can complete at home. Pt states her sister is coming to stay with her and that her daughter will also be helping, if needed. Therapy aware to provide with exercise sheets. Pt voices no further questions/concerns/needs. S[place]en JOSE BAH
[2022-04-04 12:11] LABS: Absolute Lymphocyte Count 1.58 X10^3/uL (0.83-4.51); Absolute Neutrophil Count 9.7 X10^3/uL (2.0-7.7); Basophil# 0.07 X10^3/uL; Basophil% 0.5 % (0-1); Eosinophils% 0.8 % (0-5); Hematocrit 38.8 % (37-47); Hemoglobin 13.8 g/dL (12.0-15.0); Lymphocyte # 1.58 X10^3/ul (0.83-4.51); Lymphocyte % 12.3 % (19-41); Mean Corp Hgb Conc 35.6 g/dL (32-36); Mean Corpuscular Hgb 31.4 pg (27.0-32.0); Mean Corpuscular Volume 88.4 fL (81-99); Monocyte# 1.29 X10^3/uL; NRBC Flagged by Analyzer 0 % (0-5); Neutrophil # 9.73 X10^3/uL (2.7-7.7); Neutrophil % 75.5 % (47-70); Platelet Count 276 K/mm3 (150-450); RBC Distribution Width CV 12.7 % (11.6-14.6); RBC Distribution Width SD 41.7 fl (35.1-43.9); Red Blood Count 4.39 M/mm3 (4.2-5.4); White Blood Count 12.9 K/mm3 (4.4-11.0)
[2022-04-04 12:19] LABS: Anion Gap 7 (5-15); BUN 10 mg/dL (7-18); BUN/Creat Ratio 13.7 RATIO (10-20); Calcium,Total 9.3 mg/dL (8.5-10.1); Chloride 102 mmol/L (98-107); Creatinine, Serum 0.73 mg/dL (0.55-1.02); EST Glomerular Filtration Rate 84 mL/min (>60); Est Glom Filt Rate - Afr Amer 101 mL/min (>60); Glucose 142 mg/dL (74-106); Potassium 3.5 mmol/L (3.5-5.1); Sodium Level 136 mmol/L (136-145)
--- NOTE | 2022-04-04 13:28 | PHA.DC.MR ---
Pharmacy Service has performed discharge medication reconciliation for this patient. The patient's discharge medication list was reviewed for discrepancies and discrepancies were resolved. Unable to counsellors before discharge. Medications reviewed. Home Medications clonazepam 1 mg tablet 2 mg PO QHS ANXIETY 12/28/20 levothyroxine 50 mcg tablet 50 mcg PO SANCHEZ THYROID 12/28/20 aspirin 81 mg tablet,delayed release 81 mg PO DAILY #90 tabs 12/29/20 tramadol 50 mg tablet 50 mg PO Q6H PRN pain 3 days #12 tabs 03/14/21 cholecalciferol (vitamin D3) 10 mcg (400 unit) capsule (Vitamin D3) 20 mcg PO DAILY 04/02/22 cefadroxil 500 mg capsule 500 mg PO BID #12 caps 04/04/22 levothyroxine 100 mcg tablet 100 mcg PO MoTuWeThFrSa@0600 #30 tabs 04/04/22
[2022-04-05 14:09] LABS: Aldolase 4.9 U/L (3.3-10.3)
[2022-04-05 16:23] LABS: Myoglobin, Serum 53 ng/mL (25-58)
== END 2022-04-04 12:29 | disposition home or self-care (01) | DRG 872 ==
LOC: ED 10:07 → PCU 13:48
PROVIDERS: Admitting Provider Internal Medicine; Emergency Provider Emergency Medicine; PCP Family Medicine; Visit Provider Internal Medicine
DX: A41.9 Sepsis, unspecified organism (principal); N17.9 Acute kidney failure, unspecified; E87.20 Acidosis, unspecified; N39.0 Urinary tract infection, site not specified; E78.5 Hyperlipidemia, unspecified; F41.9 Anxiety disorder, unspecified; E03.9 Hypothyroidism, unspecified; E88.81 Metabolic syndrome and other insulin resistance; M79.10 Myalgia, unspecified site; W19.XXXA Unspecified fall, initial encounter; Z51.5 Encounter for palliative care; Z66 Do not resuscitate; Z79.82 Long term (current) use of aspirin; Z87.891 Personal history of nicotine dependence; R74.02 Elevation of levels of lactic acid dehydrogenase [LDH]; E86.0 Dehydration; Z20.822 Contact with and (suspected) exposure to COVID-19; B96.20 Unspecified Escherichia coli [E. coli] as the cause of diseases classified elsewhere
CPT/HCPCS: 36415; 70450; 70551; 71045; 72146; 72148; 76770; 80048; 80053; 81001; 82085; 82550; 83605; 83690; 83735; 83874; 84100; 84439; 84443; 84481; 84484; 85025; 85610; 85730; 87040; 87077; 87086; 87088; 87186; 87428; 87635; 93005; 94762; 96361; 96365; 96366; 96367; 96372; 96375; 97162; 97166; 97802; 99218; 99285; J7040; A4216; G0378; J0696; J2405; U0003; U0005

== ENCOUNTER → 2022-05-03 | Outpatient (CLI) | payer MEDICARE, SELFPAY ==
[2022-05-03 15:19] LABS: Color, Urine Yellow (Yellow); Glucose, Dipstick Normal (Normal); Ketone-Dipstick Negative (Negative); Leukocyte Esterase-Dipstick 500 /ul (Negative); Nitrite-Dipstick Positive (Negative); Occult Blood-Urine 25 /ul (Negative); Protein-Dipstick 15 mg/dl (Negative); Urine Bilirubin Dipstick Negative (Negative); Urine Clarity Clear (Clear); Urine Urobilinogen Normal (Normal)
[2022-05-03 15:51] LABS: Alkaline Phosphatase 72 U/L (45-117); LDH 195 U/L (84-246); T4 Free Direct 1.12 ng/dL (0.76-1.46)
== END | disposition home or self-care (01) ==
LOC: BFHLAB 11:43
PROVIDERS: PCP Family Medicine; Visit Provider Family Medicine
DX: E05.00 Thyrotoxicosis with diffuse goiter without thyrotoxic crisis or storm (principal); R93.7 Abnormal findings on diagnostic imaging of other parts of musculoskeletal system; N39.0 Urinary tract infection, site not specified
CPT/HCPCS: 36415; 81002; 83615; 84075; 84439; 84443; 87086; 87088

== ENCOUNTER → 2022-07-27 | Outpatient (CLI) | payer MEDICARE, SELFPAY ==
[2022-07-27 12:37] LABS: T4 Free Direct 1.09 ng/dL (0.76-1.46)
== END | disposition home or self-care (01) ==
LOC: BFHLAB 10:06
PROVIDERS: PCP Family Medicine; Visit Provider Family Medicine
DX: E03.9 Hypothyroidism, unspecified (principal); N39.0 Urinary tract infection, site not specified
CPT/HCPCS: 36415; 84439; 84443; 87086; 87088

== ENCOUNTER → 2022-11-02 | Outpatient (CLI) | payer MEDICARE, SELFPAY ==
--- NOTE | 2022-11-02 18:29 | CT_ITS ---
STUDY: CT CHEST WITH CONTRAST REASON FOR EXAM: Female, 72 years old. ABN CXR RADIATION DOSAGE (If Supplied By Facility): CTDIvol = ( 9.56 ) mGy, DLP = ( 188.77 ) mGycm TECHNIQUE: Transaxial imaging was performed following intravenous administration of IV 100mL Isovue-300. Multiplanar coronal and sagittal images were reformatted. Individualized dose optimization techniques were used for this CT. COMPARISON: No relevant priors. FINDINGS: CHEST Focal soft tissue infiltrate is seen in the posterior aspect of the right lung apex. This extends into the region of the right major fissure. There is a 3.8 cm x 4.3 cm x 3.1 cm soft tissue mass arising from the right infrahilar region extending into the medial aspect of the right lower lobe with almost complete collapse of the right lower lobe. A neoplastic process should be ruled out. This causes narrowing of the right interlobar pulmonary artery. Biopsy is recommended. There is no demonstrated pleural abnormality. There are calcifications of the coronary arteries. . There is atherosclerotic calcification of the aortic arch. There are multi-level degenerative changes of the thoracic spine. There is no demonstrated abnormality of the visualized upper abdomen. CT/Chest WITH Contrast IMPRESSION: Large right infrahilar mass with extension into the superior segment of the right lower lobe with compromise of the right interlobar pulmonary artery. There is almost complete collapse of the right lower lobe. A neoplastic process should be ruled out. Electronically Signed: Abdifatah Oneal MD at 12:58 EDT ,
[2022-11-02 18:59] LABS: CREATININE FINGERSTICK 1.2 mg/dL (0.55-1.02)
== END | disposition home or self-care (01) ==
PROVIDERS: PCP Family Medicine; Referring Provider Nurse Practitioner Family; Visit Provider Nurse Practitioner Family
DX: R93.89 Abnormal findings on diagnostic imaging of other specified body structures (principal); R06.02 Shortness of breath
CPT/HCPCS: 71260; Q9967

== ENCOUNTER 2022-11-06 12:55 | Observation (INO) | payer MEDICARE, SELFPAY ==
[2022-11-06] VITALS (10 sets, daily range): BP systolic 150–212; BP diastolic 82–104; PULSE 58–90; RESP 16–20; TEMP 35.5–37.1; O2SAT 90–98; BMI 24.9; BMI 24.1
--- NOTE | 2022-11-06 13:34 | ED.VIS.DYS ---
HPI History of Present Illness Chief Complaint: Shortness of Breath Narrative Narrative: Presents with hemoptysis, dyspnea, for few weeks, she saw PCP and had a CT which showed large mass in her right lung region. She was sent to the ED. She has no fever or chills. No recent weight loss. She did smoke, until 2005. [facility] Medical History Abnormal cardiac enzyme level Arrhythmia Former smoker Graves disease HLD (hyperlipidemia) Hypothyroidism Restless leg syndrome Home Medications clonazepam 1 mg tablet 2 mg PO QHS ANXIETY 12/28/20 [History Last Taken 12/27/20] levothyroxine 50 mcg tablet 50 mcg PO SANCHEZ THYROID 12/28/20 [History Last Taken 12/26/20] aspirin 81 mg tablet,delayed release 81 mg PO DAILY #90 tabs 12/29/20 [Rx Last Taken Unknown] tramadol 50 mg tablet 50 mg PO Q6H PRN pain 3 days #12 tabs 03/14/21 [Rx Last Taken Unknown] cholecalciferol (vitamin D3) 10 mcg (400 unit) capsule (Vitamin D3) 20 mcg PO DAILY 04/02/22 [History Last Taken Unknown] cefadroxil 500 mg capsule 500 mg PO BID #12 caps 04/04/22 [Rx Last Taken Unknown] levothyroxine 100 mcg tablet 100 mcg PO MoTuWeThFrSa@0600 #30 tabs 04/04/22 [Rx Last Taken Unknown] Allergy/AdvReac Type Severity Reaction Status Date / Time cheese Allergy Hives Verified 11/06/22 12:58 chocolate flavor Allergy Rash Verified 11/06/22 12:58 Penicillins [PCN] Allergy Swelling Verified 11/06/22 12:58 Family History no significant family his Surgical History History of appendectomy History of hysterectomy Social History Smoking Status: Former smoker ROS ROS ED ROS Narrative Past medical history: Reviewed Medications: Reviewed Social history: Noncontributory Review of systems: All systems negative except as indicated General: No fever. Generalized weakness Eyes: No visual changes ENT: No upper airway congestion, normal voice Neck: No neck pain Cardiovascular: No chest pain Respiratory: As in HPI Gastrointestinal: No abdominal pain, nausea vomiting or diarrhea Genitourinary: No dysuria Musculoskeletal: Denies myalgias no difficulty with ambulation Skin: No rash Neurological: No memory loss, confusion or any focal weakness Psych: No recent behavioral changes Hematologic: No easy bleeding or easy bruising EXAM Physical Exam Narrative Exam Narrative: Physical exam General: Patient appears quite anxious but she appears comfortable. Head: Normocephalic, Atraumatic Eyes: Conjunctiva not pale ENT: Moist mucous membranes Neck: Supple, Nontender, No lymphadenopathy Cardiovascular: Regular rate, Regular rhythm Respiratory: Diminished right-sided breath sounds, however no significant respiratory distress she is speaking in full sentences. Abdomen: Soft, Nontender, Nondistended Back: Nontender, Normal Inspection. Negative for: CVA tenderness Extremities: Nontender, No edema Const Vital Signs: 11/06/22 12:56 Temperature 96 F L Temperature Source Temporal Pulse Rate 80 Respiratory Rate 16 Blood Pressure 212/103 H Blood Pressure Mean 139 Pulse Ox 98 Oxygen Delivery Method Room Air MDM MDM MDM Narrative Medical decision making narrative: Patient has a large lung mass, she has significant hemoptysis and feels weak and short of breath. Antibiotics and steroids were ordered per Dr. Larose from pulmonology. I did not think there is a need of x-ray since patient just had a CT. Recommendation is for admission. CBC CMP and coags were ordered for prebronch order set as well as an EKG. She is hypertensive but she is quite upset. We will monitor the blood pressure. Lab Data Labs: Laboratory Results - last 24 hr 11/06/22 13:50 WBC 5.9 RBC 4.90 Hgb 14.7 Hct 43.7 MCV 89.2 MCH 30.0 MCHC 33.6 RDW Std Deviation 39.7 RDW Coeff of Ruthie 12.1 Plt Count 273 MPV 9.8 Immature Gran % (Auto) 0.200 Neut % (Auto) 54.9 Lymph % (Auto) 31.9 [place] % (Auto) 9.9 Eos % (Auto) 1.9 Baso % (Auto) 1.2 H Absolute Neuts (auto) 3.3 Absolute Lymphs (auto) 1.89 Nucleated RBC % 0 Discharge Plan Triage Chief Complaint: Shortness of Breath ED Provider: Raffi Grace Dx/Rx/DC Orders Clinical Impression: Hemoptysis, Lung mass, Anxiety Prescriptions: No Action clonazepam 1 mg tablet 2 mg PO QHS levothyroxine 50 mcg tablet 50 mcg PO SANCHEZ aspirin 81 mg tablet,delayed release (DR/EC) 81 mg PO DAILY Qty: 90 0RF tramadol 50 mg tablet 50 mg PO Q6H PRN (Reason: pain) 3 Days Qty: 12 0RF cholecalciferol (vitamin D3) [Vitamin D3] 10 mcg (400 unit) capsule 20 mcg PO DAILY Label Comments: 1 capsule by mouth as directed cefadroxil 500 mg capsule 500 mg PO BID Qty: 12 0RF levothyroxine 100 mcg Tablet 100 mcg PO MoTuWeThFrSa@0600 Qty: 30 0RF Primary Care Provider: Leidy Beyer Referrals: Leidy Beyer DO [Primary Care Provider] -
[2022-11-06] MEDS: dexAMETHasone 10 MG/ML Vial IV (13:52)
--- NOTE | 2022-11-06 13:53 | NURSING ---
DR PADMINI RUIZ
[2022-11-06 14:02] LABS: Absolute Lymphocyte Count 1.89 X10^3/uL (0.83-4.51); Absolute Neutrophil Count 3.3 X10^3/uL (2.0-7.7); Basophil# 0.07 X10^3/uL; Basophil% 1.2 % (0-1); Eosinophil# 0.11 X10^3/uL; Eosinophils% 1.9 % (0-5); Hematocrit 43.7 % (37-47); Hemoglobin 14.7 g/dL (12.0-15.0); Lymphocyte # 1.89 X10^3/ul (0.83-4.51); Lymphocyte % 31.9 % (19-41); Mean Corp Hgb Conc 33.6 g/dL (32-36); Mean Corpuscular Volume 89.2 fL (81-99); Mean Platelet Vol. 9.8 fl (6.2-12.0); Monocyte# 0.59 X10^3/uL; Monocyte% 9.9 % (0-10); NRBC Flagged by Analyzer 0 % (0-5); Neutrophil # 3.26 X10^3/uL (2.7-7.7); Neutrophil % 54.9 % (47-70); Platelet Count 273 K/mm3 (150-450); RBC Distribution Width CV 12.1 % (11.6-14.6); RBC Distribution Width SD 39.7 fl (35.1-43.9); White Blood Count 5.9 K/mm3 (4.4-11.0)
--- NOTE | 2022-11-06 14:02 | PCM.HP.STD ---
HPI - General General Date of Admission: 11/06/22 HPI Narrative AMOL RUBIO, is a 72 F who presents to the hospital with hemoptysis secondary to a right hilar lung mass. She had a CT scan done by her PCP on 11/02/2022 and was told to come to the ER for further evaluation. Initial when she had her CT scan she was feeling okay but over the weekend she started coming little bit more short of breath specifically with ambulation and then this morning she developed hemoptysis. Review of the CT scan shows a right lower lobe collapse from a hilar mass. Initial ER lab work is still pending, blood pressure is elevated because of her anxiety given her current situation. Of note she did have a chest x-ray about a year ago with no evidence of this mass. FORMERLY [facility], [facility]–1983 Medical History (Updated 11/06/22 @ 15:[address] Kurt Larose MD) Abnormal cardiac enzyme level Arrhythmia Atelectasis of right lung Chronic respiratory failure with hypoxia Essential hypertension Former smoker Graves disease HLD (hyperlipidemia) Hyperthyroidism Hypothyroidism Mass of upper lobe of right lung Restless leg syndrome Right lower lobe lung mass TIA (transient ischemic attack) UTI (urinary tract infection) Home Medications clonazepam 1 mg tablet 2 mg PO QHS ANXIETY 12/28/20 [History Last Taken 11/05/22] levothyroxine 50 mcg tablet 50 mcg PO SANCHEZ THYROID 12/28/20 [History Last Taken 11/05/22] cholecalciferol (vitamin D3) 10 mcg (400 unit) capsule (Vitamin D3) 10 mcg PO DAILY SUPPLEMENT 04/02/22 [History Last Taken 11/05/22] albuterol sulfate 90 mcg/actuation aerosol inhaler 2 inh inhalation Q6H PRN SHORTNESS OF BREATH 11/06/22 [History Last Taken 11/05/22] aspirin 81 mg tablet,delayed release 81 mg PO DAILY HEART HEALTH 11/06/22 [History Last Taken 11/05/22] benzonatate 100 mg capsule 100 mg PO Q8H PRN COUGH 11/06/22 [History Last Taken Unknown] calcium carbonate 500 mg-vitamin D3 3.125 mcg (125 unit) tablet 1 tab PO DAILY SUPPLEMENT 11/06/22 [History Last Taken 11/05/22] doxycycline hyclate 100 mg tablet 100 mg PO BID ANTIBIOTIC 11/06/22 [History Last Taken 11/06/22] levothyroxine 88 mcg tablet 88 mcg PO MOTUWETHFRSA THYROID 11/06/22 [History Last Taken 11/06/22] polyethylene glycol 400 1 % eye drops (Visine Dry Eye Relief) 1 drp EACH EYE DAILY PRN DRY EYE RELIEF 11/06/22 [History Last Taken 2 Days Ago ~11/04/22] Allergy/AdvReac Type Severity Reaction Status Date / Time Penicillins [PCN] Allergy Intermediate Swelling Verified 11/06/22 14:36 cheese Allergy Hives Verified 11/06/22 12:58 chocolate flavor Allergy Rash Verified 11/06/22 12:58 Family History (Updated 11/06/22 @ 14:[address] Oskar Huntley MD) Other Hypertension Surgical History History of appendectomy History of hysterectomy Social History Smoking Status: Former smoker ROS Constitutional Constitutional: Denies chills, fatigue, fever(s) or malaise Eyes Eyes: Denies blurry vision ENT HEENT: Denies headache(s) or nasal discharge Cardiovascular Cardiovascular: Denies chest pain, dyspnea on exertion or syncope Respiratory/Chest Respiratory/Chest: Reports cough, hemoptysis, shortness of breath at rest and shortness of breath with exertion Gastrointestinal Gastrointestinal: Denies constipation, diarrhea, nausea or vomiting Genitourinary Genitourinary: Denies dysuria Neurologic Neurologic: Denies focal weakness, numbness or tremor(s) Psychiatric Psychiatric: Denies anxiety or depression Vital Signs Vital Signs Vital Signs: 11/06/22 12:56 Temperature 96 F L Temperature Source Temporal Pulse Rate 80 Respiratory Rate 16 Blood Pressure 212/103 H Blood Pressure Mean 139 Pulse Ox 98 Oxygen Delivery Method Room Air Weight Weight: 149 lb 9.6 oz Body Mass Index (BMI) 24.9 Physical Exam Narrative General: Alert, Oriented x3, Cooperative, No apparent distress HEENT: Atraumatic, PERRLA, EOMI, Normocephalic Oral: Moist Mucosa Neck: Supple, No JVD Lungs: Diminished with absent breath sounds in the right lower lobe, Normal air movement, No rhonchi, No wheeze, No rales Cardiovascular: Regular rate, Regular Rhythm, Normal S1, Normal S2, No murmurs Abdomen: Soft, Non Tender, Non-Distended, No Hepato-splenomegaly Extremities: No edema, Capillary Refill Less than 3 Seconds Skin: No rashes, No breakdown Musculoskeletal: No Tenderness to Palpation of Joints or Extremities Neurological: Cranial nerves II-XII grossly intact, Motor Exam 5/5 strength throughout, Sensory exam intact to light touch and pain Psych/Mental Status: Normal Affect, Appropriate Results Lab / Micro Data Result Diagrams: 11/06/22 13:50 11/06/22 13:50 Assessment & Plan Assessment/Plan (1) Hemoptysis: (2) Lung mass: PLAN: Plan 1. Hemoptysis secondary to right lower lobe collapse from the hilar lung mass with possible postobstructive pneumonia/possible COPD ? We will try to obtain a sputum culture, but will continue with antibiotics for another 24 to 48 hours ? We will consult pulmonology for possible bronchoscopy and biopsy ? She quit smoking in 2015 ? PT/INR is normal ? We will make n.p.o. after midnight ? Continue with her inhalers at this time she does not appear to be in exacerbation, would recommend outpatient follow-up with pulmonology for PFTs and treatment 2. Hypothyroidism ? Stable ? Continue with her home Synthroid 3. Anxiety ? Stable ? Continue with her home medications DVT: SCDs pending procedure 76 minutes was spent on direct patient care as well as chart review and collaboration with colleagues Charges/Coding Visit Charges Inpatient E&M: 30903 Init Hosp L3
[2022-11-06] MEDS: Ceftriaxone 1 GM/50 ML BAG IV (14:06)
--- NOTE | 2022-11-06 14:09 | NURSING ---
MED SURG KOTSONIS LUMG MASS
[2022-11-06 14:11] LABS: Prothrombin Time (Protime)PT. 12.9 SECONDS (11.7-14.9)
[2022-11-06 14:12] LABS: Allen Test Positive; Base Excess 1 mmol/L (-2 to +2); Bicarbonate 25.7 mmol/L (22-26); Blood Gas Specimen Type ART; O2 Delivery Device Room Air; PO2 56 mmHG (75-100); SITE R Radial; SO2 90 % (95-99); Total Carbon Dioxide 27 mmol/L; pCO2 38.5 mmHg (35-45); pH 7.43 (7.35-7.45)
[2022-11-06 14:12] LABS: Partial Thromboplast Time 31.6 Seconds (24.1-36.2)
[2022-11-06] MEDS: Metoprolol Tartrate 25 MG Tablet 12.5 MG PO (14:18)
[2022-11-06] MEDS: Levothyroxine 88 MCG Tablet PO (14:18)
[2022-11-06 14:22] LABS: ALB/GLOB Ratio 0.9 RATIO (0.9-2.4); AST(SGOT) 22 U/L (15-37); Alanine Aminotransfer ALT/SGPT 10 U/L (13-56); Albumin, Serum 3.7 g/dL (3.2-5.0); Alkaline Phosphatase 83 U/L (45-117); Anion Gap 2 (5-15); BUN 18 mg/dL (7-18); BUN/Creat Ratio 23.3 RATIO (10-20); Calcium,Total 9.1 mg/dL (8.5-10.1); Chloride 106 mmol/L (98-107); Creatinine, Serum 0.77 mg/dL (0.55-1.02); EST Glomerular Filtration Rate 78 mL/min (>60); Est Glom Filt Rate - Afr Amer 95 mL/min (>60); Estimated Creatinine Clearance 46.43 ml/min; Globulin 3.9 g/dL (2.2-4.2); Glucose 88 mg/dL (74-106); Potassium 3.7 mmol/L (3.5-5.1); Protein, Total 7.6 g/dL (6.4-8.2); Sodium Level 135 mmol/L (136-145)
--- NOTE | 2022-11-06 15:27 | EX.PCM.CONCC ---
Assessment & Plan Assessment/Plan (1) Right lower lobe lung mass: PLAN: Complete prebronchoscopy labs, are acceptable. Proceed to diagnostic bronchoscopy with transthoracic needle aspiration of the stage VII precarinal node. We will schedule at the earliest available inpatient bronchoscopy. The patient has not used aspirin for more than a week, and has not used ibuprofen in weeks according to her current recollection. - Further studies and diagnostic procedures will be dependent on initial results. - We will consult oncology when initial results are available. - The primary tumor looks too extensive and extends to distally to consider bronchoscopic resection at this time with conventional equipment. (2) Mass of upper lobe of right lung: PLAN: This is likely an ipsilateral metastasis, less likely a second primary. Further evaluation will be determined by initial work-up of the primary tumor in the right lower lobe. 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 - Supplemental O2, titrated to keep SPO2 greater than 92% - Empiric DuoNeb 4 times daily. -Solu-Medrol x2 doses - Outpatient complete pulmonary function testing while on inhalers to assess her optimal pulmonary function. - Maintain smoking cessation (4) Hypothyroidism: QUALIFIERS: Hypothyroidism type: unspecified Qualified Code(s): E03.9 - Hypothyroidism, unspecified PLAN: Management per primary team. In retrospect, the patient's weakness may have been a paraneoplastic manifestation. (5) HLD (hyperlipidemia): QUALIFIERS: Hyperlipidemia type: unspecified Qualified Code(s): E78.5 - Hyperlipidemia, unspecified PLAN: Management per primary team (6) Anxiety: PLAN: Management per primary team (7) Hemoptysis: PLAN: - Sputum C&S - agree with empiric antibiotics and steroids to decrease irritation and infection at the site of bronchial compromise. The patient has already had some clinical improvement. (8) Atelectasis of right lung: PLAN: Due to the extensive nature of the right mainstem bronchus lesion, it is unlikely to be amenable to either laser, stenting; further management will be dependent on the staging evaluation to see if this patient is a surgical candidate, and/or chemoimmunotherapy and/or radiation therapy, which be expected to help the airway occlusion over time. - will defer to oncology (9) Essential hypertension: PLAN: - Recommend controlling BP to near normal prior to bronchoscopy, to decrease the risk of hemorrhage with biopsies. PLAN: Plan As above Thank you for consulting [facility] on this pleasant patient. - I have Completed the informed consent process for bronchoscopy during today's visit, and the patient would like to proceed. - We will be happy to follow her with you, both as an inpatient and outpatient. HPI Consult Data Date of Consult: 11/06/22 HPI Narrative Reason for Consultation: Right lower lobe, right upper lobe masses w/RLL postobstructive pneumonia HPI Narrative: AMOL RUBIO, is a 72 F smoker who presents with several weeks of cough and increasing hemoptysis. Today she coughed up 3 dime size clots of blood, which is more than she is ever raised before. Her primary ordered a CT scan of the chest for further evaluation, which showed a right lower lobe > 3 cm mass which impinged on the mediastinum, narrows the right lower lobe pulmonary artery, has associated mediastinal and hilar adenopathy, and an endobronchial lesion occluding the right lower lobe bronchus at the orifice. There was a second lesion of approximately 1 cm in the posterior right upper lobe abutting the pleura, likely metastasis or second primary. There is right lower lobe atelectasis. She is admitted for treatment of RLL pneumonia/postobstructive atelectasis, hemoptysis, acute on chronic bronchitis, undiagnosed COPD exacerbation, chronic respiratory failure with hypoxemia on ABG, and diagnosis of her right lower lobe mass. She stated that last night was the worst night for her because she could not lie on her right side because of dyspnea and crackling. She was started on albuterol and antibiotics last Sunday at urgent care. Because of coughing up blood she saw Dr. Foster who ordered a CT scan of her chest. She has not taken aspirin since last Sunday when she started antibiotics. She has not taken ibuprofen for weeks to her recollection, with her daughter present helping remember her medication history. In the ER, I recommended she be started on IV antibiotics and bronchodilators, with improvement in her cough since admission. Past pulmonary history: She had pneumonia as an , but no history of asthma pulmonary embolism, deep venous thrombosis, tuberculosis exposure or illness, pneumothorax. Denies previous rib fractures does not think she ever had COVID or influenza. She has been very healthy throughout her life. She is immunized fully for COVID, pneumococcus, usually gets influenza vaccination but not last year. 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 She lives alone with her cat has no environmental allergies sinus infections or dental problems. No history of cancer. Past medical history: Hyperlipidemia, hypertension, restless legs, Graves' disease, hypothyroidism, anxiety, arrhythmia E. coli UTI 04/04/2022, hospitalized with sepsis, lactic acidosis, INR 1.5, hyperbilirubinemia, MALENA and UA positive for bacteria and white cells.? April 2022 during that hospital admission she was noted to also have bilateral lower extremity weakness, fell at home, worked up with MRI showing increased T2 signal, elevated TSH of 11.5, started on Synthroid.? Brain CT 04/02/2022 no acute intracranial pathology with chronic involution of white matter.? Cardiac evaluation for elevated troponin December 2020 was negative for acute stroke, negative nuclear stress test and normal 2D echo with EF 65%. Past surgical history: Appendectomy, hysterectomy, tonsillectomy (age 20). Social history: , has a son and a daughter, smoked 1 and half to 2 packs/day for 47 years ([id number] smoker) quit in 2014. 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 Her daughter lives nearby, and was present during today's visit.. [facility] Medical History (Updated 11/06/22 @ 15:[address] Kurt Larose MD) Abnormal cardiac enzyme level Arrhythmia Atelectasis of right lung Chronic respiratory failure with hypoxia Essential hypertension Former smoker Graves disease HLD (hyperlipidemia) Hyperthyroidism Hypothyroidism Mass of upper lobe of right lung Restless leg syndrome Right lower lobe lung mass TIA (transient ischemic attack) UTI (urinary tract infection) Home Medications clonazepam 1 mg tablet 2 mg PO QHS ANXIETY 12/28/20 [History Last Taken 11/05/22] levothyroxine 50 mcg tablet 50 mcg PO SANCHEZ THYROID 12/28/20 [History Last Taken 11/05/22] cholecalciferol (vitamin D3) 10 mcg (400 unit) capsule (Vitamin D3) 10 mcg PO DAILY SUPPLEMENT 04/02/22 [History Last Taken 11/05/22] albuterol sulfate 90 mcg/actuation aerosol inhaler 2 inh inhalation Q6H PRN SHORTNESS OF BREATH 11/06/22 [History Last Taken 11/05/22] aspirin 81 mg tablet,delayed release 81 mg PO DAILY HEART HEALTH 11/06/22 [History Last Taken 11/05/22] benzonatate 100 mg capsule 100 mg PO Q8H PRN COUGH 11/06/22 [History Last Taken Unknown] calcium carbonate 500 mg-vitamin D3 3.125 mcg (125 unit) tablet 1 tab PO DAILY SUPPLEMENT 11/06/22 [History Last Taken 11/05/22] doxycycline hyclate 100 mg tablet 100 mg PO BID ANTIBIOTIC 11/06/22 [History Last Taken 11/06/22] levothyroxine 88 mcg tablet 88 mcg PO MOTUWETHFRSA THYROID 11/06/22 [History Last Taken 11/06/22] polyethylene glycol 400 1 % eye drops (Visine Dry Eye Relief) 1 drp EACH EYE DAILY PRN DRY EYE RELIEF 11/06/22 [History Last Taken 2 Days Ago ~11/04/22] Allergy/AdvReac Type Severity Reaction Status Date / Time Penicillins [PCN] Allergy Intermediate Swelling Verified 11/06/22 14:36 cheese Allergy Hives Verified 11/06/22 12:58 chocolate flavor Allergy Rash Verified 11/06/22 12:58 Family History (Updated 11/06/22 @ 14:[address] Oskar Huntley MD) Other Hypertension Surgical History History of appendectomy History of hysterectomy Social History Smoking Status: Former smoker ROS ROS Narrative 10 pound weight loss in the last month because of decreased appetite. Otherwise a 12 system review was negative except for diarrhea last weekend which has resolved. Physical Exam Narrative Well-developed slender woman with BMI of 24.1, no acute distress. She coughed only when she did forced vital capacity maneuver for lung exam x1. Articulate, good memory, good historian. HEENT: Normocephalic atraumatic extraoculars are intact pupils are equal mucous membranes are moist, no oral lesions neck is supple with no JVD thyromegaly mass or bruit. Lungs are hyperinflated but clear except for diminished breath sounds at the right lung base. No wheezes rales or rhonchi including forced vital capacity maneuver, cough was nonproductive. Heart distant S1-S2 with no murmurs rubs or gallops, regular Abdomen is soft, nontender, no organomegaly. I did not feel nodularity of the liver, no mass. Positive bowel sounds. Extremities have no clubbing cyanosis or edema Skin is warm and dry without lesions or bleeding Medical Records Data Attestation: I reviewed the patient's medical records Lab / Micro Data Attestation: I reviewed the patient's lab results. Result Diagrams: 11/06/22 13:50 11/06/22 13:50 Labs: Laboratory Results - last 24 hr 11/06/22 13:50: WBC 5.9, RBC 4.90, Hgb 14.7, Hct 43.7, MCV 89.2, MCH 30.0, MCHC 33.6, RDW Std Deviation 39.7, RDW Coeff of Ruthie 12.1, Plt Count 273, MPV 9.8, Immature Gran % (Auto) 0.200, Neut % (Auto) 54.9, Lymph % (Auto) 31.9, [place] % (Auto) 9.9, Eos % (Auto) 1.9, Baso % (Auto) 1.2 H, Absolute Neuts (auto) 3.3, Absolute Lymphs (auto) 1.89, Nucleated RBC % 0 11/06/22 13:50: Sodium 135 L, Potassium 3.7, Chloride 106, Carbon Dioxide 27.0, Anion Gap 2 L, BUN 18, Creatinine 0.77, Estim Creat Clear Calc 46.43, Est GFR (MDRD) Af Amer 95, Est GFR (MDRD) Non-Af 78, BUN/Creatinine Ratio 23.3 H, Glucose 88, Calcium 9.1, Total Bilirubin 0.90, AST 22, ALT 10 L, Alkaline Phosphatase 83, Total Protein 7.6, Albumin 3.7, Globulin 3.9, Albumin/Globulin Ratio 0.9 11/06/22 13:50: PT 12.9, INR 1.0, APTT 31.6 ABG Data ABG results: ABG 11/06/22 14:08 Specimen Type ART Sample Site R Radial pH 7.43 Bicarbonate Actual 25.7 Total CO2 27 Base Excess 1 O2 Saturation 90 L ABG pCO2 38.5 ABG pO2 56 L Lg Test Positive O2 Delivery Device Room Air She will be started on 2 L of supplemental oxygen. Interpretation: Normal acid-base status, with significant hypoxia on room air. Charges/Coding Visit Charges Office Visits / Consults: 32482 IP Consult L5
--- NOTE | 2022-11-06 19:37 | NURSING ---
Contacted nursing vacuum metalizing supervisor about scheduling bronchoscopy; unable to select time as schedule is not out yet; will notify MD in morning when aware of time
[2022-11-06] MEDS: Ipratropium/Albuterol Sulfate 3 ML AMPUL.NEB INHALATION (20:26)
[2022-11-06] MEDS: Phenylephrine 0.25% 15 ML NASAL.SRY NASAL (20:46)
[2022-11-06] MEDS: 0.9% Normal Saline 1,000 ML 15 ML IV (20:46)
[2022-11-07 02:00] VITALS: O2SAT 2
[2022-11-07 02:02] VITALS: BP 153/73; PULSE 87; RESP 16; TEMP 36.7; O2SAT 93
[2022-11-07 05:48] LABS: Absolute Lymphocyte Count 0.94 X10^3/uL (0.83-4.51); Absolute Neutrophil Count 4.9 X10^3/uL (2.0-7.7); Basophil# 0.01 X10^3/uL; Basophil% 0.2 % (0-1); Hematocrit 45.2 % (37-47); Hemoglobin 14.8 g/dL (12.0-15.0); Lymphocyte # 0.94 X10^3/ul (0.83-4.51); Lymphocyte % 15.7 % (19-41); Mean Corp Hgb Conc 32.7 g/dL (32-36); Mean Corpuscular Hgb 29.2 pg (27.0-32.0); Mean Corpuscular Volume 89.2 fL (81-99); Mean Platelet Vol. 9.9 fl (6.2-12.0); Monocyte# 0.12 X10^3/uL; NRBC Flagged by Analyzer 0 % (0-5); Neutrophil % 81.6 % (47-70); Platelet Count 305 K/mm3 (150-450); RBC Distribution Width SD 39.2 fl (35.1-43.9); Red Blood Count 5.07 M/mm3 (4.2-5.4)
[2022-11-07 06:10] LABS: Anion Gap 7 (5-15); BUN 20 mg/dL (7-18); BUN/Creat Ratio 26.2 RATIO (10-20); Calcium,Total 9.2 mg/dL (8.5-10.1); Chloride 107 mmol/L (98-107); Creatinine, Serum 0.76 mg/dL (0.55-1.02); EST Glomerular Filtration Rate 79 mL/min (>60); Est Glom Filt Rate - Afr Amer 96 mL/min (>60); Estimated Creatinine Clearance 46.43 ml/min; Glucose 146 mg/dL (74-106); Potassium 3.5 mmol/L (3.5-5.1); Sodium Level 138 mmol/L (136-145)
[2022-11-07] MEDS: Ipratropium/Albuterol Sulfate 3 ML AMPUL.NEB INHALATION (07:46)
[2022-11-07 07:47] VITALS: PULSE 80; RESP 16; O2SAT 93
[2022-11-07 08:00] VITALS: BP 147/86; PULSE 105; RESP 18; TEMP 37.4; O2SAT 96
[2022-11-07 09:22] VITALS: BP 147/86; PULSE 105; RESP 18; TEMP 37.4; O2SAT 96; BMI 24.1
--- NOTE | 2022-11-07 10:39 | CASEMGMT ---
JOSE CM in to pt room to complete assessment, pt is off of the floor at this time.
--- NOTE | 2022-11-07 11:58 | NURSING ---
pt back from surgery and unable to do procedure as planned d/t equipment not being here daughter very upset and pt and family wanting iv out so she can get out of here. refusing iv atbs and when attempted to give pt thyroid med stated, i can just take that at home dr. hernandez texted to let him know that would not be waiting to see if could get papers
--- NOTE | 2022-11-07 12:06 | PCM.DC ---
Discharge Instructions Diet Discharge Diet: No restrictions Activity Discharge Activity: Return to Normal Activity Dressing / Incision Call your doctor if you observe: Fever of 101 or Higher, Shortness of breath, Dizziness, Fainting spells, Swelling in the ankles, Chest pain and Increased palpitations (irregular heartbeat) Follow Up Care Test Results: Test results from this visit will be discussed in further detail at your follow-up appointment, if applicable. Discharge Plan Admission Admit Date/Time: 11/06/22 13:55 Attending Provider: Oskar Huntley Primary Care Provider: Leidy Beyer Consulting Providers: Kurt Larose ; Miguel Ángel Wells ; Bobby Arciniega ; Bridger Richard ; Ese Marin HOME SERVICE CONSULTANT Discharge Orders/Prescriptions Prescriptions: Continued clonazepam 1 mg tablet 2 mg PO QHS levothyroxine 50 mcg tablet 50 mcg PO SANCHEZ cholecalciferol (vitamin D3) [Vitamin D3] 10 mcg (400 unit) capsule 10 mcg PO DAILY Label Comments: 1 capsule by mouth as directed levothyroxine 88 mcg tablet 88 mcg PO MOTUWETHFRSA benzonatate 100 mg capsule 100 mg PO Q8H PRN (Reason: COUGH ) albuterol sulfate 90 mcg/actuation HFA aerosol inhaler 2 inh INHALATION Q6H PRN (Reason: SHORTNESS OF BREATH ) doxycycline hyclate 100 mg tablet 100 mg PO BID calcium carbonate-vitamin D3 500 mg-3.125 mcg (125 unit) Tablet 1 tab PO DAILY Visine Dry Eye Relief 1 % Drops 1 drp EACH EYE DAILY PRN (Reason: DRY EYE RELIEF) Held aspirin 81 mg tablet,delayed release (DR/EC) 81 mg PO DAILY Hold Instructions: Resume on 11/13/22. Referrals / Follow Up: Leidy Beyer DO [Primary Care Provider] - In 1 Week Disposition Disposition (needs filled in before D/C Order can be placed): Home, Self Care
[2022-11-07 12:35] VITALS: BP 159/102; PULSE 91; RESP 18; TEMP 36.7; O2SAT 97
--- NOTE | 2022-11-07 13:48 | DS.PCM_ITS ---
Providers Date of Admission: 11/06/22 Primary Care Physician: Dr. Leidy Beyer, Consultations 11/06/22 13:37 Consult: Regional Controller / Pulmonary Medicine Routine Consulting Provider: Kurt Larose Reason for Consult: pulmonary mass EMERGENT Consult: Yes Notified: Yes Date Notified: 11/06/22 Time Notified: 13:37 Method of Notification: Verbal 11/06/22 14:58 Consult: Regional Controller / Pulmonary Medicine Routine Consulting Provider: Pulmonary Medicine [facility] Reason for Consult: Right hilar lung mass with right lower lobe collapse EMERGENT Consult: No MD Notified: Yes Date Notified: 11/06/22 Time Notified: 14:00 Method of Notification: ED Physician Initiated Reason For Visit: RIGHT LUNG MASS W/ RIGHT LOWER MARIANNA COLLAPSE Diagnosis Discharge Diagnosis (1) Right lower lobe lung mass: Status: Acute Code(s): R91.8 - Other nonspecific abnormal finding of lung field (2) Mass of upper lobe of right lung: Status: Acute Code(s): R91.8 - Other nonspecific abnormal finding of lung field (3) Chronic respiratory failure with hypoxia: Status: Chronic Code(s): J96.11 - Chronic respiratory failure with hypoxia (4) Hypothyroidism: Status: Acute Code(s): E03.9 - Hypothyroidism, unspecified Qualifiers: Hypothyroidism type: unspecified Qualified Code(s): E03.9 - Hypothyroidism, unspecified (5) HLD (hyperlipidemia): Status: Acute Code(s): E78.5 - Hyperlipidemia, unspecified Qualifiers: Hyperlipidemia type: unspecified Qualified Code(s): E78.5 - Hyperlipidemia, unspecified (6) Anxiety: Status: Acute Code(s): F41.9 - Anxiety disorder, unspecified (7) Hemoptysis: Status: Acute Code(s): R04.2 - Hemoptysis (8) Atelectasis of right lung: Status: Acute Code(s): J98.11 - Atelectasis (9) Essential hypertension: Status: Acute Code(s): I10 - Essential (primary) hypertension Medications at Discharge Home Medications clonazepam 1 mg tablet 2 mg PO QHS ANXIETY 12/28/20 levothyroxine 50 mcg tablet 50 mcg PO SANCHEZ THYROID 12/28/20 cholecalciferol (vitamin D3) 10 mcg (400 unit) capsule (Vitamin D3) 10 mcg PO DAILY SUPPLEMENT 04/02/22 albuterol sulfate 90 mcg/actuation aerosol inhaler 2 inh inhalation Q6H PRN SHORTNESS OF BREATH 11/06/22 aspirin 81 mg tablet,delayed release 81 mg PO DAILY HEART HEALTH 11/06/22 benzonatate 100 mg capsule 100 mg PO Q8H PRN COUGH 11/06/22 calcium carbonate 500 mg-vitamin D3 3.125 mcg (125 unit) tablet 1 tab PO DAILY SUPPLEMENT 11/06/22 doxycycline hyclate 100 mg tablet 100 mg PO BID ANTIBIOTIC 11/06/22 levothyroxine 88 mcg tablet 88 mcg PO MOTUWETHFRSA THYROID 11/06/22 polyethylene glycol 400 1 % eye drops (Visine Dry Eye Relief) 1 drp EACH EYE DAILY PRN DRY EYE RELIEF 11/06/22 Hospital Course Operations None Procedures None Summary of Care Provided Minutes Spent on Discharge: 36 Hospital Course: Per HPI: AMOL RUBIO, is a 72 F who presents to the hospital with hemoptysis secondary to a right hilar lung mass.? She had a CT scan done by her PCP on 11/02/2022 and was told to come to the ER for further evaluation.? Initial when she had her CT scan she was feeling okay but over the weekend she started coming little bit more short of breath specifically with ambulation and then this morning she developed hemoptysis.? Review of the CT scan shows a right lower lobe collapse from a hilar mass.? Initial ER lab work is still pending, blood pressure is elevated because of her anxiety given her current situation.? Of note she did have a chest x-ray about a year ago with no evidence of this mass. Hospital Course: 1.? Hemoptysis secondary to right lower lobe collapse from the hilar lung mass with possible postobstructive pneumonia/possible COPD ? We will try to obtain a sputum culture, but will continue with antibiotics for another 24 to 48 hours ? We will consult pulmonology for possible bronchoscopy and biopsy ? She quit smoking in 2015 ? PT/INR is normal ? We will make n.p.o. after midnight ? Continue with her inhalers at this time she does not appear to be in exacerbation, would recommend outpatient follow-up with pulmonology for PFTs and treatment - Unfortunately, we did not have the equipment necessary to perform the procedure today. And with her hemoptysis resolved I discussed with her the plan for possible discharge and she expressed understanding of the risks and benefits of going home and would like to go home today. follow-up on sunday for biopsy and with your PCP in 1 week. Complete the antibiotics that were provided as an outpatient prior to admission. 2.? Hypothyroidism ? Stable ? Continue with her home Synthroid 3.? Anxiety ? Stable ? Continue with her home medications Physical Exam Narrative General: Alert, Oriented x3, Cooperative, No apparent distress HEENT: Atraumatic, PERRLA, EOMI, Normocephalic Oral: Moist Mucosa Neck: Supple, No JVD Lungs: Diminished with absent breath sounds in the right lower lobe, Normal air movement, No rhonchi, No wheeze, No rales Cardiovascular: Regular rate, Regular Rhythm, Normal S1, Normal S2, No murmurs Abdomen: Soft, Non Tender, Non-Distended, No Hepato-splenomegaly Extremities: No edema, Capillary Refill Less than 3 Seconds Skin: No rashes, No breakdown Musculoskeletal: No Tenderness to Palpation of Joints or Extremities Neurological: Cranial nerves II-XII grossly intact, Motor Exam 5/5 strength throughout, Sensory exam intact to light touch and pain Psych/Mental Status: Normal Affect, Appropriate Weight / BMI Weight Weight: 145 lb 0.004 oz Body Mass Index (BMI) 24.1 ABG / Lab / Microbiology Data Result Diagrams: 11/07/22 05:20 11/07/22 05:20 Laboratory: Laboratory Results - last 24 hr 11/06/22 13:50: WBC 5.9, RBC 4.90, Hgb 14.7, Hct 43.7, MCV 89.2, MCH 30.0, MCHC 33.6, RDW Std Deviation 39.7, RDW Coeff of Ruthie 12.1, Plt Count 273, MPV 9.8, Immature Gran % (Auto) 0.200, Neut % (Auto) 54.9, Lymph % (Auto) 31.9, Randolph % (Auto) 9.9, Eos % (Auto) 1.9, Baso % (Auto) 1.2 H, Absolute Neuts (auto) 3.3, Absolute Lymphs (auto) 1.89, Nucleated RBC % 0 11/06/22 13:50: Sodium 135 L, Potassium 3.7, Chloride 106, Carbon Dioxide 27.0, Anion Gap 2 L, BUN 18, Creatinine 0.77, Estim Creat Clear Calc 46.43, Est GFR (MDRD) Af Amer 95, Est GFR (MDRD) Non-Af 78, BUN/Creatinine Ratio 23.3 H, Glucose 88, Calcium 9.1, Total Bilirubin 0.90, AST 22, ALT 10 L, Alkaline Phosphatase 83, Total Protein 7.6, Albumin 3.7, Globulin 3.9, Albumin/Globulin Ratio 0.9 11/06/22 13:50: PT 12.9, INR 1.0, APTT 31.6 11/07/22 05:20: WBC 6.0, RBC 5.07, Hgb 14.8, Hct 45.2, MCV 89.2, MCH 29.2, MCHC 32.7, RDW Std Deviation 39.2, RDW Coeff of Ruthie 12.0, Plt Count 305, MPV 9.9, Immature Gran % (Auto) 0.500, Neut % (Auto) 81.6 H, Lymph % (Auto) 15.7 L, Randolph % (Auto) 2.0, Eos % (Auto) 0.0, Baso % (Auto) 0.2, Absolute Neuts (auto) 4.9, Absolute Lymphs (auto) 0.94, Nucleated RBC % 0 11/07/22 05:20: Sodium 138, Potassium 3.5, Chloride 107, Carbon Dioxide 24.0, Anion Gap 7, BUN 20 H, Creatinine 0.76, Estim Creat Clear Calc 46.43, Est GFR (MDRD) Af Amer 96, Est GFR (MDRD) Non-Af 79, BUN/Creatinine Ratio 26.2 H, Glucose 146 H, Calcium 9.2 ABG: ABG 11/06/22 14:08 Specimen Type ART Sample Site R Radial pH 7.43 Bicarbonate Actual 25.7 Total CO2 27 Base Excess 1 O2 Saturation 90 L ABG pCO2 38.5 ABG pO2 56 L Lg Test Positive O2 Delivery Device Room Air D/C Instructions Discharge Diet: No restrictions Call your doctor if you observe: Fever of 101 or Higher, Shortness of breath, Dizziness, Fainting spells, Swelling in the ankles, Chest pain and Increased palpitations (irregular heartbeat) Meaningful Use Info Meaningful Use Diagnoses (Choose all that apply): None applicable Discharge Plan Admission Admit Date/Time: 11/06/22 13:55 Attending Provider: Oskar Huntley Primary Care Provider: Leidy Beyer Consulting Providers: Kurt Larose ; Miguel Ángel Wells ; Bobby Arciniega ; Bridger Richard ; Ese Marin DIRECTOR LEARNING SERVICES Discharge Orders/Prescriptions Prescriptions: Continued clonazepam 1 mg tablet 2 mg PO QHS levothyroxine 50 mcg tablet 50 mcg PO SANCHEZ cholecalciferol (vitamin D3) [Vitamin D3] 10 mcg (400 unit) capsule 10 mcg PO DAILY Label Comments: 1 capsule by mouth as directed levothyroxine 88 mcg tablet 88 mcg PO MOTUWETHFRSA benzonatate 100 mg capsule 100 mg PO Q8H PRN (Reason: COUGH ) albuterol sulfate 90 mcg/actuation HFA aerosol inhaler 2 inh INHALATION Q6H PRN (Reason: SHORTNESS OF BREATH ) doxycycline hyclate 100 mg tablet 100 mg PO BID calcium carbonate-vitamin D3 500 mg-3.125 mcg (125 unit) Tablet 1 tab PO DAILY Visine Dry Eye Relief 1 % Drops 1 drp EACH EYE DAILY PRN (Reason: DRY EYE RELIEF) Held aspirin 81 mg tablet,delayed release (DR/EC) 81 mg PO DAILY Hold Instructions: Resume on 11/13/22. Referrals / Follow Up: Leidy Beyer DO [Primary Care Provider] - In 1 Week Disposition Disposition (needs filled in before D/C Order can be placed): Home, Self Care Charges/Coding Visit Charges Inpatient E&M: 51447 Disch Hosp >30min
== END 2022-11-07 12:40 | disposition home or self-care (01) | DRG 204 ==
LOC: ED 13:44 → MS3 17:57
PROVIDERS: Internal Medicine; Admitting Provider Family Medicine; Emergency Provider Emergency Medicine; PCP Family Medicine; Visit Provider Family Medicine
PROC: 0BJ08ZZ Inspection of Tracheobronchial Tree, Via Natural or Artificial Opening Endoscopic (ICD-10-PCS; CPT 31622; principal; 2022-11-07 11:15)
DX: R91.8 Other nonspecific abnormal finding of lung field (principal); J44.0 Chronic obstructive pulmonary disease with (acute) lower respiratory infection; J96.11 Chronic respiratory failure with hypoxia; J18.8 Other pneumonia, unspecified organism; J98.11 Atelectasis; R04.2 Hemoptysis; E03.9 Hypothyroidism, unspecified; I10 Essential (primary) hypertension; E78.5 Hyperlipidemia, unspecified; F41.9 Anxiety disorder, unspecified; Z87.891 Personal history of nicotine dependence; Z79.82 Long term (current) use of aspirin; Z57.2 Occupational exposure to dust; Z79.899 Other long term (current) drug therapy; Z79.890 Hormone replacement therapy; Z53.09 Procedure and treatment not carried out because of other contraindication
CPT/HCPCS: 36415; 36600; 80048; 80053; 82803; 85025; 85610; 85730; 94640; 96365; 96366; 96367; 96375; 99221; 99282; J7030; A4216; G0378

== ENCOUNTER 2022-11-10 10:51 | Day surgery (SDC) | payer MEDICARE, SELFPAY ==
--- NOTE | 2022-11-10 | IMM_PTH ---
PATIENT: AMOL RUBIO LOC: EN U#:[id number] AGE/SX: 72/F ROOM: RE11/10/[address]: Dr. Kurt Larose MD : 1950 BED: DIS: 11/10/2022 SPEC #: [id number] RECD: 11/14/22 12:48 STATUS: SOULina REQ #: [id number] EYAL: 11/10/22 00:[address]: Kurt Larose DEPT: IMMUNOHISTOCHEMISTRY RECD BY: Shama Astudillo ENTERED: 11/14/22 12:50 SP TYPE: IMMUNO OTHR DR: Dr. Leidy Beyer, DO Tissues: A - Bronchus, NOS Procedures: RCC (add) NAPSIN A (add) CK20 (add) CK5-6 (add) CK7 (add) CK8 (add) HEP PAR (add) KY (add) TTF1 (add) Pankeratin (add) P40 (add) ER (initial) PHYSICIAN & [address] [address] SPECIMEN INFORMATION: Tissue Source: A - Right mainstem bronchus tumor biopsy Clinical Info: Right lower lobe lung mass; mass of right upper lobe of lung Specimen Number: [id number] CPT code: 04287, 36238 x11 METHODOLOGY: Deparaffinized sections of prefer/formalin-fixed tissue or PAP/DQ stained slides are incubated with monoclonal/polyclonal antibodies/oligonucleotide probes. Localization is made via biotin free immunoperoxidase method. Appropriate controls are performed and reacted as expected. Results on target cell population are indicated in the following table: RESULTS: ANTIBODY / CLONE RESULT Block A ER (6F11) negative KY (1E2) negative AE1-3 (AE1/AE3/PCK26) positive CK7 (OV-TL12/30) negative CK8 (26bzozT77) positive CK20 (KS20.8) negative TTF-1 (8G7G3/1) negative Napsin A (Rabbit Polyclonal) negative HepPar (OCh1E5) negative RCC (PN-15) negative CK5-6 (D5 & 1684) positive P40 (BC28) positive These tests were developed and their performance characteristics determined by [facility]. They may not have been cleared or approved by the U.S. Food and Drug Administration. The FDA has determined that such clearance or approval is not necessary. The above immunohistochemical/dualISH markers are ordered and reviewed by the Pathologist. INTERPRETATION: A. Right mainstem bronchus tumor, biopsy: Non-small cell carcinoma, favor squamous cell carcinoma. SJ:elsa 11/15/2022
--- NOTE | 2022-11-10 | IMM_PTH ---
PATIENT: AMOL RUBIO LOC: EN U#:[id number] AGE/SX: 72/F ROOM: RE11/10/[address]: Dr. Kurt Larose MD : 1950 BED: DIS: 11/10/2022 SPEC #: [id number] RECD: 11/14/22 12:47 STATUS: NIYAH REQ #: [id number] EYAL: 11/10/22 00:[address]: Kurt Larose DEPT: IMMUNOHISTOCHEMISTRY RECD BY: Shama Astudillo ENTERED: 11/14/22 12:48 SP TYPE: IMMUNO OTHR DR: Dr. Leidy Beyer DO Tissues: Bronchus of right upper lobe Procedures: CK5-6 (add) P40 (add) KI-67 (initial) PHYSICIAN & INSTITUTION [place] [address] SPECIMEN INFORMATION: Tissue Source: RBI washings Clinical Info: Right lower lobe mass; mass of right upper lobe of lung Specimen Number: [id number] CPT code: 15524, 77788 x2 METHODOLOGY: Deparaffinized sections of prefer/formalin-fixed tissue or PAP/DQ stained slides are incubated with monoclonal/polyclonal antibodies/oligonucleotide probes. Localization is made via biotin free immunoperoxidase method. Appropriate controls are performed and reacted as expected. Results on target cell population are indicated in the following table: RESULTS: ANTIBODY / CLONE RESULT P40 (BC28) positive CK5-6 (D5 & 1684) positive Ki-67 (30-9) positive, moderate These tests were developed and their performance characteristics determined by [facility]. They may not have been cleared or approved by the U.S. Food and Drug Administration. The FDA has determined that such clearance or approval is not necessary. The above immunohistochemical/dualISH markers are ordered and reviewed by the Pathologist. INTERPRETATION: RBI washings: Malignant cells present derived from non-small cell carcinoma, favor squamous cell carcinoma. LUCRECIA:elsa 11/15/2022
--- NOTE | 2022-11-10 | FLU_PTH ---
PATIENT: AMOL RUBIO LOC: EN U#:[id number] AGE/SX: 72/F ROOM: RE11/10/[address]: Dr. Kurt Larose MD : 1950 BED: DIS: 11/10/2022 SPEC #: [id number] RECD: 11/10/22 13:21 STATUS: NIYAH [place] #: [id number] EYAL: 11/10/22 00:[address]: Kurt Larose DEPT: CYTOLOGY RECD BY: Steffanie Brito ENTERED: 11/13/22 08:03 SP TYPE: Fluid OTHR DR: Dr. Leidy Beyer DO Tissues: Bronchus, NOS Procedures: Special Stain Group II Special Stain Group I Surgery Specimen Level IV AFB Stain (control) GMS Stain (control) Cytospin Fluid HEADER OPERATION: Bronchoscopy (MAC) PRE-OP DIAGNOSIS: Right lower lobe lung mass; mass of right upper lobe of lung TISSUE SUBMITTED: RBI washings DIAGNOSIS CYTOLOGY RBI washings fluid (cytospin and cell block): Malignant cells present derived from non-small cell carcinoma, favor squamous cell carcinoma. See comment. LUCRECIA:elsa 11/14/2022 COMMENT Extensive tumor necrosis is also noted. Immunohistochemistry ([id number]) supports the above diagnosis. Special stains for acid fast bacilli and fungi are negative for organisms; matched controls are appropriate. Please also correlate with corresponding additional surgical specimen ([id number]), right mainstem bronchus tumor biopsy with diagnosis of ?non-small cell carcinoma, favor squamous cell carcinoma.? CYTOLOGY STUDY Slides are reviewed. CYTOLOGY GROSS Received is 40 ml of cloudy red fluid labeled with the patient's name and and designated per the requisition as RBI washings. Submitted for cytology preparation including cell block. / elsa 11/13/2022 TC:0 CPT: 72115, 88455, 93642 x2
[2022-11-10 11:26] VITALS: BP 164/88; PULSE 68; RESP 16; TEMP 36.6; O2SAT 95; BMI 24.5
[2022-11-10] MEDS: Lactated Ringers 1,000 ML 15 ML IV (11:36)
[2022-11-10] MEDS: Lidocaine Jelly 2% 20 ML Syringe (URO-JET) 1 APPLIC (11:43)
--- NOTE | 2022-11-10 12:00 | LUNB_PTH ---
PATIENT: AMOL RUBIO LOC: EN U#:[id number] AGE/SX: 72/F ROOM: RE11/10/[address]: Dr. Kurt Larose MD : 1950 BED: DIS: 11/10/2022 SPEC #: [id number] RECD: 11/10/22 13:21 STATUS: NIYAH MARSHALL #: [id number] EYAL: 11/10/22 12:[address]: Kurt Larose DEPT: SURGICAL PATHOLOGY RECD BY: Steffanie Brito ENTERED: 11/13/22 08:24 SP TYPE: LUNG BX OTHR DR: Dr. Leidy Beyer DO Tissues: A - Lung, NOS B - Lung, NOS Procedures: Special Stain Group I Surgery Specimen Level IV AFB Stain (control) GMS Stain (control) HEADER OPERATION: Bronchoscopy (MAC) PRE-OP DIAGNOSIS: Right lower lobe lung mass; mass of right upper lobe of lung TISSUE SUBMITTED: A ? Right mainstem bronchus tumor biopsy, B - Right mainstem bronchus tumor Simpson needle MICROSCOPIC DIAGNOSIS A. Right mainstem bronchus tumor, biopsy: Non-small cell carcinoma, favor squamous cell carcinoma. See comment. B. Right mainstem bronchus tumor, Simpson needle biopsy: Fragments of bronchial epithelium and scant fragment of bronchial mucosa, negative for malignancy. See comment. SJ:elsa 11/14/2022 COMMENT A. The tumor shows extensive necrosis. 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 Only a small focus of viable invasive carcinoma is noted. Immunohistochemistry ([id number]) supports the above diagnosis. Molecular studies on the tumor can be performed, if clinically indicated, please notify the laboratory if they are needed. Special stains for acid fast bacilli and fungi are negative for organisms; matched controls are appropriate. B. Special stains for acid fast bacilli and fungi are negative for organisms; matched controls are appropriate. MICROSCOPIC DESCRIPTION Slides are reviewed. GROSS DESCRIPTION A - Received in fixative is one container labeled with the patient's name and designated right mainstem bronchus tumor biopsy. The specimen consists of multiple irregular fragments of light villalba soft tissue that in aggregate measure 1.5 x 0.5 x 0.1 cm. The specimen is totally submitted in one cassette. B - Received in fixative is one container labeled with the patient's name and designated right mainstem bronchus tumor Simpson needle. The specimen consists of multiple irregular fragments of light villalba soft tissue that in aggregate measure 0.4 x 0.2 x <0.1 cm. The specimen is totally submitted in one cassette. / SJ:rg 11/13/2022 TC:0 CPT: 37459 x2, 22784 x4 ADDENDUM ADDENDUM ADDENDUM ADDENDUM ADDENDUM ADDENDUM 01/01/2023 10:17 ADDENDUM 01/01/2023 10:17 ADDENDUM 01/01/2023 10:17 ADDENDUM 01/01/2023 10:17 ADDENDUM 01/01/2023 10:17 PD-L1 (KEYTRUDA) IMMUNOHISTOCHEMICAL ANALYSIS FROM [facility] [employer] RESULTS: Tumor proportion score: <1% / Negative Please see complete report in e-chart or EMR
[2022-11-10] MEDS: Epinephrine (1 mg/ml) 1 MG/ML VIAL (12:45)
[2022-11-10] MEDS: 0.9% Normal Saline (Pres. free 10 ML Vial (12:45)
[2022-11-10] MEDS: Lidocaine 2% (5ml sdv) 5 ML VIAL.MPF (12:58)
[2022-11-10 13:02] VITALS: BP 116/69; BP 164/88; PULSE 60; RESP 16; TEMP 36.5; O2SAT 95
[2022-11-10 13:05] VITALS: BP 117/78; BP 164/88; PULSE 63; RESP 16; O2SAT 94
[2022-11-10 13:10] VITALS: BP 123/69; BP 164/88; PULSE 68; RESP 16; O2SAT 93
[2022-11-10 13:14] VITALS: BP 126/70; BP 164/88; PULSE 65; RESP 16; TEMP 36.4; O2SAT 93
--- NOTE | 2022-11-10 13:34 | OP.BRONCH_ITS ---
Patient Name: Farida Mckeon Procedure Date: 11/10/2022 11:56 AM Date of : 1950 Age: 72 Procedure: Bronchoscopy Indications: Bronchus intermedius mass, Right middle lobe mass, Right lower lobe mass, Endobronchial mass, Abnormal CT scan of chest, Atelectasis of the right lower lobe, Right middle lobe lung mass suspicious for cancer, Right lower lobe lung mass suspicious for cancer, Hemoptysis with abnormal CXR, Shortness of breath Providers: Kurt Larose MD Referring MD: Kurt Larose MD Medicines: Midazolam 7 mg IV, Fentanyl 50 mcg IV Complications: No immediate complications Procedure: Pre-Anesthesia Assessment: - A History and Physical has been performed. Patient meds and allergies have been reviewed. The risks and benefits of the procedure and the sedation options and risks were discussed with the patient. All questions were answered and informed consent was obtained. Patient identification and proposed procedure were verified prior to the procedure by the physician, the nurse and the anesthesiologist in the pre-procedure area in the procedure room. Mental Status Examination: alert and oriented. Airway Examination: normal oropharyngeal airway and Mallampati Class I (tonsillar pillars visualized). Respiratory Examination: clear to auscultation. CV Examination: RRR, no murmurs, no S3 or S4. ASA Grade Assessment: II - A patient with mild systemic disease. After reviewing the risks and benefits, the patient was deemed in satisfactory condition to undergo the procedure. The anesthesia plan was to use moderate sedation / analgesia (conscious sedation). Immediately prior to administration of medications, the patient was re-assessed for adequacy to receive sedatives. The heart rate, respiratory rate, oxygen saturations, blood pressure, adequacy of pulmonary ventilation, and response to care were monitored throughout the procedure. The physical status of the patient was re-assessed after the procedure. - A History and Physical has been performed. Patient meds and allergies have been reviewed. The risks and benefits of the procedure and the sedation options and risks were discussed with the patient. All questions were answered and informed consent was obtained. Patient identification and proposed procedure were verified prior to the procedure by the physician, the nurse and the anesthesiologist in the procedure room. Mental Status Examination: alert and oriented. Airway Examination: normal oropharyngeal airway. Respiratory Examination: clear to auscultation. ASA Grade Assessment: II - A patient with mild systemic disease. After reviewing the risks and benefits, the patient was deemed in satisfactory condition to undergo the procedure. The anesthesia plan was to use moderate sedation / analgesia (conscious sedation). Immediately prior to administration of medications, the patient was re-assessed for adequacy to receive sedatives. The heart rate, respiratory rate, oxygen saturations, blood pressure, adequacy of pulmonary ventilation, and response to care were monitored throughout the procedure. The physical status of the patient was re-assessed after the procedure. - Only local anesthesia, not conscious sedation, was planned for the procedure. - The anesthesia plan was to use moderate sedation/analgesia. - Immediately prior to administration of medications, the patient was re-assessed for adequacy to receive sedatives. - The physical status of the patient was re-assessed after the procedure. - After reviewing the risks and benefits, the patient was deemed in satisfactory condition to undergo the procedure. - The heart rate, respiratory rate, oxygen saturations, blood pressure, adequacy of pulmonary ventilation, and response to care were monitored throughout the procedure. After I obtained informed consent, the scope was passed under direct vision. Throughout the procedure, the patient's blood pressure, pulse, and oxygen saturations were monitored continuously. The bronchoscope was introduced through the mouth and advanced to the tracheobronchial tree. The procedure was accomplished without difficulty. The patient tolerated the procedure well. The total duration of the procedure was 30 minutes. Total fluoroscopy time was 0 minutes. Moderate Sedation: Moderate (conscious) sedation was administered by the endoscopy nurse and supervised by the endoscopist. The patient's oxygen saturation, heart rate, blood pressure and response to care were monitored. Total physician intraservice time was 30 minutes. See nursing and anesthesia notes. Findings: The nasopharynx/oropharynx appears normal. The larynx appears normal. The vocal cords appear normal. The subglottic space is normal. The trachea is of normal caliber. The thomas is sharp. The tracheobronchial tree of the left lung was examined to at least the first subsegmental level. Bronchial mucosa and anatomy in the left lung are normal; there are no endobronchial lesions, and no secretions. Right Lung Abnormalities: A partially obstructing mass was found proximally, at the orifice in the bronchus intermedius and in the right middle lobe. The mass was large and endobronchial, exophytic, friable, polypoid and ulcerative. The lesion was not traversed. Transbronchial needle aspiration of a station 7 subcarinal node with 19g Simpson needle x 2 was performed using a Simpson 19 gauge needle and sent for routine cytology. Two samples were obtained. Stage T3, N2 and MX. Impression: - Bronchus intermedius mass - Endobronchial mass - Abnormal CT scan of chest - Atelectasis of the right lower lobe - Right middle lobe lung mass suspicious for cancer - Right lower lobe lung mass suspicious for cancer - Hemoptysis with abnormal CXR - Shortness of breath - The airway examination of the left lung was normal. - An endobronchial, exophytic, friable, polypoid and ulcerative mass was found in the bronchus intermedius and in the right middle lobe. This lesion is likely malignant. - A transbronchial needle aspiration was performed. Procedure Code(s): --- Professional --- 85432, Bronchoscopy, rigid or flexible, including fluoroscopic guidance, when performed; with transbronchial needle aspiration biopsy(s), trachea, main stem and/or lobar bronchus(i) 68165, Moderate sedation services provided by the same physician or other qualified health critical care technician performing the diagnostic or therapeutic service that the sedation supports, requiring the presence of an independent trained observer to assist in the monitoring of the patient's level of consciousness and physiological status; initial 15 minutes of intraservice time, patient age 5 years or older [address], Moderate sedation services provided by the same physician or other qualified health critical care technician performing the diagnostic or therapeutic service that the sedation supports, requiring the presence of an independent trained observer to assist in the monitoring of the patient's level of consciousness and physiological status; each additional 15 minutes intraservice time (List separately in addition to code for primary service) Diagnosis Code(s): --- Professional --- J98.11, Atelectasis R04.2, Hemoptysis R93.8, Abnormal findings on diagnostic imaging of other specified body structures J98.9, Respiratory disorder, unspecified CPT copyright 2017 [employer]. All rights reserved. The codes documented in this report are preliminary and upon railcar mechanic review may be revised to meet current compliance requirements. MD Kurt Freedman MD 11/10/2022 1:33:53 PM This report has been signed electronically. Number of Addenda: 0 Note Initiated On: 11/10/2022 11:56 AM
--- NOTE | 2022-11-10 13:35 | PCM.OP.PRO ---
Assessment & Plan Assessment/Plan (1) Hemoptysis: (2) Atelectasis of right lung: (3) Right lower lobe lung mass: (4) Hypothyroidism: QUALIFIERS: Hypothyroidism type: unspecified Qualified Code(s): E03.9 - Hypothyroidism, unspecified (5) HLD (hyperlipidemia): QUALIFIERS: Hyperlipidemia type: unspecified Qualified Code(s): E78.5 - Hyperlipidemia, unspecified (6) Mass of middle lobe of right lung: PLAN: Plan Endobronchial mass, white, friable, at the orifices of the right bronchus intermedius. Biopsied with endobronchial forcep x12, transbronchial needle aspiration with 19-gauge Simpson needle x2, sent for pathology, cell block, cytology, C&S, AFB, tumor markers including TTF-1, KRAS, EGF, PD-L1, CK 50, HER2, BRAF, neuroendocrine. ALK. Patient will follow-up in the office November 16 for report and results. She will call if she has increased hemoptysis, small amount of hemoptysis is expected after multiple biopsies of the endobronchial tumor. If she develops high fever that does not resolve after 4 hours, increase shortness of breath, severe chest pain or other unusual symptoms she can come to the emergency room for evaluation. Procedure Report Date of Procedure: 11/10/22 See provation report Bronchoscopy, with endobronchial biopsy x12, Simpson needle transbronchial needle aspiration x2 of the station 7 precarinal lymph node,, washings in the tumor bed. Unable to visualize past the tumor in the right bronchus intermedius, 90% occluding tumor. Right upper lobe and right lung anatomy were clear, vocal cords were normal and moved well bilaterally Procedures Pulmonary CF Procedures 30xxx-[id number]: [id number] Bronchoscopy/needle bx each
[2022-11-10 13:45] VITALS: BP 164/88
[2022-11-10 13:47] LABS: Cytology, Body Fluid / CSF SEE PATHOLOGY REPORT
== END 2022-11-10 13:56 | disposition home or self-care (01) ==
LOC: EN 10:51 → AC 10:53
PROVIDERS: PCP Family Medicine; Referring Provider Internal Medicine; Visit Provider Internal Medicine
PROC: 0BJ08ZZ Inspection of Tracheobronchial Tree, Via Natural or Artificial Opening Endoscopic (ICD-10-PCS; CPT 31622; principal; 2022-11-10 11:45)
DX: R91.8 Other nonspecific abnormal finding of lung field (principal); E03.9 Hypothyroidism, unspecified; E78.5 Hyperlipidemia, unspecified; R04.2 Hemoptysis; J98.11 Atelectasis
CPT/HCPCS: 31629; 87070; 87077; 87186; 87205; 88108; 88305; 88312; 88313; 88341; 88342; J7120; J2405; J3490

== ENCOUNTER → 2022-11-17 | Outpatient (CLI) | payer MEDICARE, SELFPAY | END | disposition home or self-care (01) | LOC: SL 10:59 | PROVIDERS: PCP Family Medicine; Referring Provider Internal Medicine; Visit Provider Internal Medicine | DX: C34.90 Malignant neoplasm of unspecified part of unspecified bronchus or lung (principal); J98.11 Atelectasis | CPT/HCPCS: 94762 ==

== ENCOUNTER → 2022-11-22 | Outpatient (CLI) | payer MEDICARE, SELFPAY ==
--- NOTE | 2022-11-23 05:37 | PFTCOMP_ITS ---
COMPLETE PULMONARY FUNCTION TEST INTERPRETATION Brief HPI: Patient is a 72-year-old female, currently under the care of Dr. Larose, who presents to [facility] for complete pulmonary function tests secondary to diagnosis of lung cancer. Respiratory therapist reports good effort and reproducible results. Interpretation: Forced expiration spirometry shows a mild large airways obstructive ventilatory defect with an FEV1 of 76% predicted. There is no significant bronchodilator response by strict ATS criteria. Spirograms are of good quality and plateau slowly, indicating slowly emptying areas of the lungs. The respiratory flow volume loop shows decreased expiratory flow rates at high lung volumes consistent with small airways obstruction. Lung volumes by body plethysmography show a normal total lung capacity at 4.9 L, 98% predicted. All other lung volumes are within normal limits. Diffusion capacity by carbon monoxide is decreased at 59% predicted. The airway resistance is slightly elevated. No previous pulmonary function tests were available for review. Impression: Irreversible mild large airways obstructive ventilatory defect with a disproportionate reduction in diffusion capacity
== END | disposition home or self-care (01) ==
LOC: PSN 07:47
PROVIDERS: PCP Family Medicine; Referring Provider Internal Medicine; Visit Provider Internal Medicine
DX: C34.90 Malignant neoplasm of unspecified part of unspecified bronchus or lung (principal); Z87.891 Personal history of nicotine dependence; J98.11 Atelectasis
CPT/HCPCS: 94060; 94726; 94729

== ENCOUNTER → 2022-11-24 | Outpatient (CLI) | payer MEDICARE, SELFPAY ==
--- NOTE | 2022-11-24 09:34 | NM_ITS ---
CLINICAL: 72-year-old female with history of primary lung carcinoma. WHOLE BODY 99m Tc MDP RADIONUCLIDE BONE SCINTIGRAPHY COMPARISON: None available FINDINGS: Following the intravenous administration of 25.3 mCi of 99m Tc MDP, whole body bone images reveal: 1. Increased radiopharmaceutical concentration is identified in the acromioclavicular compartments of both shoulders, the lower lumbar spine and sacrum anteriorly, the left elbow, both hands, the lower cervical spine posteriorly on the left. 2. The remaining skeletal structures are scintigraphically unremarkable with normal-appearing renal images and urinary bladder activity identified. NM/Bone Scan Whole Body IMPRESSION: 1. The increase in radiotracer defined in the bilateral shoulders, cervical, lower lumbar spine and sacrum, the left elbow, hands bilaterally. 2. There is no definitive scintigraphic evidence of diffuse axial skeletal metastatic disease on the current examination. Electronically Signed: Ever Campoverde, at 9:46 EDT ,
== END | disposition home or self-care (01) ==
PROVIDERS: PCP Family Medicine; Referring Provider Internal Medicine; Visit Provider Internal Medicine
DX: C34.90 Malignant neoplasm of unspecified part of unspecified bronchus or lung (principal)
CPT/HCPCS: 78306; A9503

== ENCOUNTER → 2022-12-26 | Outpatient (CLI) | payer MEDICARE, SELFPAY ==
--- NOTE | 2022-12-26 10:41 | MRI_ITS ---
INDICATION: STAGING NSCLC EXAMINATION: MRI - MR Brain WO/W Contrast TECHNIQUE: Multiplanar and multisequence MR images of the brain were obtained without and with gadolinium. IV Contrast Dosage and Agent: 13 mL Clariscan COMPARISON: 04/03/2022 FINDINGS: BRAIN PARENCHYMA: No MRI evidence of hemorrhage. No evidence of acute infarct. No intracranial mass or mass effect. There is preservation of the singh/white matter interface. Normal sella turcica, pituitary gland, infundibular stalk, optic chiasm and hypothalamus. Posterior fossa structures are unremarkable. INTERNAL AUDITORY CANALS: The internal auditory canals appear normal. CSF SPACES: Appropriate for age. No hydrocephalus. Basal cisterns are patent. VASCULAR SYSTEM: Normal flow voids in the major intracranial circulation. CALVARIUM, SKULL BASE, PARANASAL SINUSES AND MASTOID AIR CELLS: Clear. No expansile changes. ORBITS: Both globes, extraocular muscles, optic nerves and retrobulbar fat appear unremarkable. MRI/Brain W/WO Contrast IMPRESSION: No finding of intracranial metastasis. Normal appearance of the brain. Electronically Signed: Raffi Ochoa MD at 19:22 EDT ,
[2022-12-26 16:30] LABS: Free T3 1.8 pg/mL (2.18-3.98); T4 Free Direct 1.23 ng/dL (0.76-1.46)
== END | disposition home or self-care (01) ==
PROVIDERS: Surgery; PCP Family Medicine; Referring Provider Internal Medicine Hematology & Oncology; Visit Provider Internal Medicine Hematology & Oncology
DX: C34.90 Malignant neoplasm of unspecified part of unspecified bronchus or lung (principal); E05.00 Thyrotoxicosis with diffuse goiter without thyrotoxic crisis or storm
CPT/HCPCS: 36415; 70553; 84439; 84443; 84481; A9575

== ENCOUNTER 2023-01-09 05:49 | Day surgery (SDC) | payer MEDICARE, SELFPAY ==
[2023-01-09 06:23] VITALS: BP 147/80; PULSE 84; RESP 16; TEMP 36.5; O2SAT 93; BMI 24.3
[2023-01-09] MEDS: Lactated Ringers 1,000 ML 15 ML IV (06:28)
--- NOTE | 2023-01-09 07:33 | PCM.HP.BLA ---
History and Physical Date of Admission: 01/09/23 Date of Service: 12/26/22 MR#: [id number] Acct: [id number] Name: AMOL MCKEON Rep #: [id number] : 1950 Provider: Dr. Roberto Guidry MD Age/Sex: 72/F Location: [facility] [address] Status: Signed Intake Vital Signs 12/14/2313:32 12/19/2308:05 12/27/2307:51 Height 5 ft 5 in 5 ft 5 in 5 ft 5 in Weight: 150 lb 2 oz 149 lb 6 oz BMI 25.0 24.8 BP 189/94 H 163/92 H Blood Pressure Location Lt brachial Rt brachial Position Sitting Sitting Respiration 18 18 Pulse 63 62 Pulse Source Monitor Monitor Temp 97.4 F L 96.0 F L Temp Source Temporal Pulse Oximetry (%) 93 91 Oxygen Delivery Method room air room air Intake Visit Reasons: PORT PLACEMENT Chief Complaint: Port Placement It Application Administrator Required: No Accompanied by: Daughter Is patient in pain?: No Allergies Penicillins [PCN] Allergy (Intermediate, Verified 12/26/22 08:53) Swellingcheese Allergy (Verified 12/26/22 08:53) Hiveschocolate flavor Allergy (Verified 12/26/22 08:53) Rash Medications clonazepam 1 mg tablet 2 mg PO QHS ANXIETY 12/28/20 [History Confirmed 12/26/22] levothyroxine 50 mcg tablet 50 mcg PO SANCHEZ THYROID 12/28/20 [History Confirmed 12/26/22] cholecalciferol (vitamin D3) 10 mcg (400 unit) capsule (Vitamin D3) 10 mcg PO DAILY SUPPLEMENT 04/02/22 [History Confirmed 12/26/22] aspirin 81 mg tablet,delayed release 81 mg PO DAILY HEART HEALTH 11/06/22 [History Confirmed 12/26/22] calcium carbonate 500 mg-vitamin D3 3.125 mcg (125 unit) tablet 1 tab PO DAILY SUPPLEMENT 11/06/22 [History Confirmed 12/26/22] levothyroxine 88 mcg tablet 88 mcg PO MOTUWETHFRSA THYROID 11/06/22 [History Confirmed 12/26/22] polyethylene glycol 400 1 % eye drops (Visine Dry Eye Relief) 1 drp EACH EYE DAILY PRN DRY EYE RELIEF 11/06/22 [History Confirmed 12/26/22] tiotropium 2.5 mcg-olodaterol 2.5 mcg/actuation mist for inhalation (Stiolto Respimat) 2 puff inhalation DAILY COPD #4 grams 11/29/22 [Rx Confirmed 12/26/22] PFSH Medical History Abnormal cardiac enzyme level Arrhythmia Atelectasis of right lung Cardiology follow-up encounter Cataract Chronic respiratory failure with hypoxia Essential hypertension Former smoker Graves disease History of echocardiogram History of stress test HLD (hyperlipidemia) Hyperthyroidism Hypothyroidism Loss of hearing Regional lymph node metastasis present Restless leg syndrome Squamous cell carcinoma of lung, 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 Patient was diagnosed with stage III squamous cell cancer of the lung on 11/10/2022 after bronchoscopy washings were performed by Dr. Larose. They have met with oncology and radiation oncology and plans are to begin chemotherapy either the end of this month or very beginning of next. Patient has no prior history of central line placement. Patient has no pacemaker or intracardiac defibrillator (she does have a history of being told she has atrial fibrillation, but states she was acutely ill and this diagnosis was made and does not believe she persists in this arrhythmia). Patient has no renal dysfunction and are not on hemodialysis. Patient has no history of prior skin infection?and specifically denies any infections from staph or MRSA. Ms. Mckeon is not currently prescribed blood thinners. Patient does have a history of Graves' disease status post radioactive iodine ablation. She is currently prescribed levothyroxine for subsequent hypothyroidism. Her latest TSH available to me from July 2022 is 18. ROS General General: Yes weight change, fatigue and breast cancer; No appetite, colon cancer or weakness HEENT HEENT: Yes eye surgery; No difficulty swallowing, eye injury, swollen glands or hoarseness Endo Endocrine: Yes thyroid disease; No diabetes mellitus, thyroid cancer, Hair loss, heat intolerance or cold intolerance Skin Skin: No rash or changing moles Breast Breast: No left breast lump, right breast lump, nipple discharge, breast pain, abnormal mammogram, abnormal US or breast enlargement Musc Musculoskeletal: No back problems, arthritis, rheumatoid arthritis, gout or joint pain Cardio Cardiovascular: Yes atrial fibrillation; No murmur, pacemaker, heart disease, high blood pressure, heart attack, heart stent, palpitations, shortness of breat with exertion or chest pain Psych Psychiatric: No depression, anxiety or hearing voices Resp Respiratory: No shortness of breath, No sleep apnea, Yes cough, Yes COPD, No asthma, No emphysema and No wheezing Gastro Gastrointestinal: Yes abdominal pain, No nausea or vomiting, No diarrhea, No constipation, No blood in stool, No acid reflux, No hemorrhoids, No ulcers, No gallbladder problem and No black,tarry stools Brady Hematologic: No blood thinners, No blood disorders, No bleeding, No anemia and No blood clots Additional Details: Baby aspirin daily Neuro Neurologic: No system reviewed and no additional complaints, except as documented, No as per HPI, No abnormal gait, No abnormal hearing, No abnormal movements, No abnormal speech, No behavioral changes, No burning sensations, No confusion, No convulsions, No disequilibrium, No dizziness, No localized weakness, No frequent falls, No headache(s), No lack of coordination, No loss of vision, No memory loss, Yes numbness, No other visual disturbances, No radicular pain, No restless legs, No sensory deficit, No syncope, Yes tingling, No tremor(s), No weakness and No other Exam Const General: cooperative, no acute distress and anxious Other: Exhibits some pressured speech and/or anxiety Chest Chest palpation & inspection: normal inspection of the chest (No scars, no rashes, no infections) Resp Effort & Inspection: normal respiratory effort Auscultation: no rales, no rhonchi and no wheezes Cardio Rate: regular rate Rhythm: regular rhythm Assessment and Plan Assessment and Plan (1) Regional lymph node metastasis present: Status: Acute (2) Primary cancer of right upper lobe of lung: Status: Acute (3) Squamous cell carcinoma of lung, stage III: Status: Acute Qualifiers: Laterality: right Qualified Code(s): C34.91 - Malignant neoplasm of unspecified part of right bronchus or lung Comment: Squamous cell carcinoma of the right bronchus intermedius (lung), pre-op/pre-staging 3B, awaiting definitive staging with PET and bone scan. Immunohistochemistry was positive for CK5/6, p40, CK8, and AE1?3. ECOG functional status 0. See path reports and immunohistochemistry for further details. Plan This is a 72-year-old female with diagnosis of right-sided stage III squamous cell lung cancer who presents for port placement. She is tentatively due to start chemotherapy within the next 1 week. I find no contraindication for port placement and have provided her with an education regarding the risk of indwelling central venous access. She has been advised to insist upon sterile technique when accessing this port and access and only for her cancer treatments. After discussion of the procedure, neither she nor her daughter have any further questions. We will look to get her on the schedule first available with MAC sedation. I would also like to obtain updated thyroid functions given her history of Graves' and reported wide swings in her thyroid function. I have examined the patient and the H&P has been reviewed. There are no clinical changes since date of exam. Patient reports that she started chemotherapy last week and is due to continue with another infusion today. She denies any development of rashes or infections in the interval since our visit. Neither she nor her daughter have any further questions regarding the procedure, however, post procedure expectations were reviewed in brief. Proceed to the operating room for port placement as discussed above.
[2023-01-09] MEDS: Clindamycin 900 MG/50 ML BAG 75 MG IV (07:54)
[2023-01-09] MEDS: Bupivacaine Mpf 0.5% 30 ML VIAL (08:15)
--- NOTE | 2023-01-09 08:56 | OP.PCM_ITS ---
Report of Operation Date of Procedure: 01/09/23 Pre-Operative Diagnosis: Stage III squamous cell carcinoma of the lung Post-Operative Diagnosis: Same Surgery/Procedure Performed:: Ultrasound-guided right internal jugular PowerPort placement (8 [place] PowerPort ISP MRI implantable ( Surgeon: Roberto Guidry administrative specialist: None Type of Anesthesia: MAC/Supplemental/Local Anesthesiologist: Ashvin Hart Specimen's removed: NA Drains: NA Estimated Blood Loss (mL): 5 Description of Procedure: After appropriate identification in the preoperative holding area the patient was brought to the operating room. There she was administered preoperative antibiotics and positioned supine on the operating room table. Once sedation was begun, the upper chest and lower cervical region were prepped and draped in usual sterile fashion. A formal timeout was then conducted to confirm both the patient and procedure. Ultrasound was used to localize the right internal jugular vein. Then a wheal of 0.5% bupivacaine plain local anesthetic was raised superficially in this location and the vein was accessed under direct ultrasound guidance using a Seldinger technique and micro access kit to place a guidewire. The position of the guidewire was confirmed with fluoroscopy. The micro access guidewire was exchanged for standard 035 guidewire using provided sheath. Next the position of the port pocket was determined and again local anesthetic was used to anesthetize the area of both the pocket and the tunneling cephalad. A transverse incision approximately 3 cm in width was made down through the subcutaneous tissue. Selective electrocautery was used to obtain hemostasis. Then with blunt dissection the port pocket was developed. The catheter was connected to the tunneler and was tunneled up to the position of the guidewire. Here the dilator and peel-away sheath were placed over the guidewire and the guidewire was removed. Position was again confirmed with fluoroscopy. The catheter length was estimated based on the external placement of a hemostat to approximate the level of the thomas and the cavoatrial junction. The catheter was then fed into the sheath and slowly the sheath was peeled away as the catheter was inserted fully into the neck. Back in the chest the excess catheter was trimmed and the port was connected to the catheter. The port was tied into the pocket using 2-0 Prolene. Function was then tested using sterile saline on a Ku needle. It was locked with 3 mL of heparinized saline (concentration 50U/5mL). The port pocket was closed with a deep dermal stitch using a running 3-0 Vicryl followed by 4-0 Monocryl subcuticular stitch. The 1 cm incision in the neck was closed with a single interrupted subcuticular stitch using 4-0 Monocryl. Dermabond was applied as a dressing. Port was accessed with a Ku needle for patient's chemotherapy to follow the procedure this morning. Patient was then aroused from the sedation and taken to PACU for ongoing recovery were a portable chest x-ray was obtained to confirm port positioning and exclude any pneumothorax. Grafts/Implants Used: PowerPort ISP MRI implantable port REF:[id number], LOT:[id number] Complications None Admit VTE Documentation VTE Mechan Device Prophylaxis: SCD's Procedures Cardiovascular CF Procedures [id number]: [id number] Insert tunneled cv cath
--- NOTE | 2023-01-09 08:57 | RAD_ITS ---
STUDY: X-RAY CHEST REASON FOR EXAM: Female, 72 years old. Status post line placement TECHNIQUE: Single AP portable view of the chest. COMPARISON: Comparison is made with prior study dated April 02, 2022. FINDINGS: A right-sided portacatheter is in place with the tip in the midportion of the superior vena cava. Increased markings at the right lung base with blunting of the right costophrenic angle. Normal size heart. Prominence of the subcarinal region. This may represent adenopathy. Normal visualized pulmonary arteries. Normal visualized aortic arch and descending thoracic aorta. Normal visualized thoracic spine. Normal visualized ribs, clavicles, and shoulders. There is no demonstrated abnormality of the visualized soft tissue structures of the upper abdomen. RAD/CXR for Line Placement IMPRESSION: The tip of the right portacatheter is in the midportion of the superior vena cava. Mild pleural parenchymal changes at the right lung base. Soft tissue density in the subcarinal region. Electronically Signed: Abdifatah Oneal MD at 10:01 EDT ,
--- NOTE | 2023-01-09 08:58 | DCINST_ITS ---
Discharge Instructions Diet Discharge Diet: No restrictions Activity Discharge Activity: May Shower Dressing / Incision Call your doctor if your incision/area has: Continuous Slow Oozing, Sudden Increased Bleeding, Increased Pain/ Swelling, Increased Redness, Foul Smelling Discharge and Swelling at the incision site Call your doctor if you observe: Fever of 101 or Higher and Uncontrolled pain Cleanse incision/area with: Soap & Water Follow Up Care Test Results: Test results from this visit will be discussed in further detail at your follow- up appointment, if applicable. Discharge Plan Admission Primary Reason for Your Visit: Port placement Attending Provider: Roberto Guidry Primary Care Provider: Leidy Beyer Discharge Orders/Prescriptions Prescriptions: No Action levothyroxine 100 mcg tablet 100 mcg PO DAILY lidocaine-prilocaine 2.5-2.5 % cream 1 applic topical ONCE PRN (Reason: port access) 30 Days Qty: 30 2RF ondansetron 8 mg tablet,disintegrating 8 mg PO Q8H PRN (Reason: nausea and vomiting) Qty: 30 2RF benzonatate 200 mg capsule 200 mg PO TID Qty: 30 2RF clonazepam 1 mg tablet 2 mg PO QHS cholecalciferol (vitamin D3) [Vitamin D3] 10 mcg (400 unit) capsule 10 mcg PO DAILY Patient Comments: 1 capsule by mouth as directed calcium carbonate-vitamin D3 500 mg-3.125 mcg (125 unit) Tablet 1 tab PO DAILY Visine Dry Eye Relief 1 % Drops 1 drp EACH EYE DAILY PRN (Reason: DRY EYE RELIEF) aspirin 81 mg tablet,delayed release (DR/EC) 81 mg PO DAILY Hold Instructions: Resume on 11/13/22. Stiolto Respimat 2.5-2.5 mcg/actuation mist 2 puff inhalation DAILY MDD 2 puffs Qty: 4 6RF Referrals / Follow Up: Leidy Beyer DO [Primary Care Provider] - Disposition Disposition (needs filled in before D/C Order can be placed): Home, Self Care
[2023-01-09 09:05] VITALS: BP 132/85; BP 147/80; PULSE 74; RESP 16; TEMP 36.1; O2SAT 91
[2023-01-09 09:15] VITALS: BP 135/99; BP 147/80; PULSE 74; RESP 16; O2SAT 92
[2023-01-09 09:20] VITALS: BP 139/69; BP 147/80; PULSE 66; RESP 16; TEMP 36.2; O2SAT 91
[2023-01-09 09:30] VITALS: BP 147/80
--- NOTE | 2023-01-09 10:15 | SUR.PHASEII ---
port left accessed, pt going to oncology for chemo
== END 2023-01-09 10:16 | disposition home or self-care (01) ==
LOC: SDC 05:49 → AC 05:50
PROVIDERS: PCP Family Medicine; Referring Provider Surgery; Visit Provider Surgery
PROC: (CPT 36561; principal; 2023-01-09 07:15)
DX: C34.11 Malignant neoplasm of upper lobe, right bronchus or lung (principal); C77.9 Secondary and unspecified malignant neoplasm of lymph node, unspecified; J44.9 Chronic obstructive pulmonary disease, unspecified; E78.5 Hyperlipidemia, unspecified; I10 Essential (primary) hypertension; Z87.891 Personal history of nicotine dependence; Z92.21 Personal history of antineoplastic chemotherapy; E03.9 Hypothyroidism, unspecified; Z86.73 Personal history of transient ischemic attack (TIA), and cerebral infarction without residual deficits
CPT/HCPCS: 36561; 00532; 71045; 77001; J7120; C1788; J2405

== ENCOUNTER 2023-01-15 04:49 | Inpatient (IN) | payer MEDICARE, SELFPAY ==
[2023-01-15] VITALS (9 sets, daily range): BP systolic 118–157; BP diastolic 73–98; PULSE 94–99; RESP 16–18; TEMP 36.7–37.6; O2SAT 92–95; BMI 25.0
--- NOTE | 2023-01-15 05:15 | EDS_ITS ---
HPI History of Present Illness Chief Complaint: Bite Informant: patient Narrative Narrative: Left hand dominant female presents By infection left forearm. Home cat, stated daughter brought her dogs over got her cat worked up. She got bitten left forearm. This does not happen the past. Her cats immunizations up-to-date. Patient tetanus unknown. Denies fever or chills. She states that evening there was redness up the forearm that has maintained. She cleansed it with peroxide initially. She does have a recent history of stage III squamous cell carcinoma diagnosed a few months ago she is currently going through chemoradiation. Last chemo treatment 5 days ago radiation treatment 6 days ago. Remote tobacco stopped in 2014. Allergies penicillin causing swelling locally. No lip or tongue swelling. No trouble breathing. In addition states recent indigestion states prescription of Pepcid would help however cause diarrhea for which she takes Imodium. Denies abdominal pain. Reports there is pus draining from one of the wound sites. Tetanus Immunization: Unknown Prior similar symptoms: No PFSH PFSH Medical History Cataract Chronic respiratory failure with hypoxia Essential hypertension Former smoker Graves disease HLD (hyperlipidemia) Hypothyroidism Loss of hearing Regional lymph node metastasis present Restless leg syndrome Squamous cell carcinoma of lung, stage III Stage 2 moderate COPD by GOLD classification TIA (transient ischemic attack) Wears dentures Home Medications clonazepam 1 mg tablet 2 mg PO QHS ANXIETY 12/28/20 [History Last Taken 11/05/22] cholecalciferol (vitamin D3) 10 mcg (400 unit) capsule (Vitamin D3) 10 mcg PO DAILY SUPPLEMENT 04/02/22 [History Last Taken 11/05/22] aspirin 81 mg tablet,delayed release 81 mg PO DAILY HEART HEALTH 11/06/22 [History Last Taken 11/05/22] calcium carbonate 500 mg-vitamin D3 3.125 mcg (125 unit) tablet 1 tab PO DAILY SUPPLEMENT 11/06/22 [History Last Taken 11/05/22] tiotropium 2.5 mcg-olodaterol 2.5 mcg/actuation mist for inhalation (Stiolto Re spimat) 2 puff inhalation DAILY COPD #4 grams 11/29/22 [Rx Last Taken Unknown] benzonatate 200 mg capsule 200 mg PO TID #30 caps 12/28/22 [Rx Last Taken Unknown] levothyroxine 100 mcg tablet 100 mcg PO DAILY 12/28/22 [History Last Taken Unknown] lidocaine-prilocaine 2.5 %-2.5 % topical cream 1 applic topical ONCE PRN port access 30 days #30 grams 12/28/22 [Rx Last Taken Unknown] ondansetron 8 mg disintegrating tablet 8 mg PO Q8H PRN nausea and vomiting #30 tabs 12/28/22 [Rx Last Taken Unknown] Allergy/AdvReac Type Severity Reaction Status Date / Time Penicillins [PCN] Allergy Intermediate Swelling Verified 01/09/23 15:12 cheese Allergy Hives Verified 01/09/23 15:12 chocolate flavor Allergy Rash Verified 01/09/23 15:12 Family History Mother Hypertension Father Hypertension Surgical History History of appendectomy History of hysterectomy Social History household members: none Smoking Status: Former smoker alcohol intake: never substance use type: does not use ROS ROS ED Constitutional Constitutional ED: Denies chills, fever(s) or sweats Eyes Eyes: Denies change in vision ENT ENT ED: Denies dysphagia or sore throat Cardiovascular Cardiovascular: Denies chest pain, leg edema, palpitations or racing heartbeat Respiratory/Chest Respiratory/Chest: Denies cough, dyspnea or dyspnea on exertion Gastrointestinal Gastrointestinal: Denies abdominal pain, diarrhea, nausea or vomiting Genitourinary Genitourinary ED: Denies dysuria, hematuria or urinary frequency Musculoskeletal Musculoskeletal: Denies back pain, extremity pain or neck pain Integumentary Reports rash and wounds Neurologic Neurologic: Denies headache(s), paresthesias or weakness EXAM Physical Exam Const Vital Signs: 01/15/23 04:50 01/15/23 05:00 Temperature 98.2 F 98.2 F Temperature Source Oral Oral Pulse Rate 95 95 Respiratory Rate 16 16 Blood Pressure 157/83 H 147/91 H Blood Pressure Mean 107 109 Pulse Ox 93 92 Oxygen Delivery Method Room Air Room Air Positive well nourished and well developed General Appearance ED: well developed and NAD HEENT Reports moist mucous membranes normocephalic and atraumatic Eyes PERRL, EOMs intact bilaterally and conjunctivae normal General Eye ED: Yes normal appearance of both eyes Neck no lymphadenopathy and supple General: Negative for tenderness Chest Wall Chest: Negative for tenderness Resp normal respiratory effort and normal air movement Effort and Inspection: symmetric chest movement; Negative for respiratory distress Cardio regular rate, regular rhythm and no murmurs Peripheral Pulses: pulses 2+ throughout GI normal to inspection, nondistended, normoactive bowel sounds and non-tender Palpation: Negative for guarding or rebound tenderness present Back/Spine no CVA tenderness and no thoracic nor lumbar tenderness Extremity Extremity Narrative: Left upper extremity: Distal forearm couple puncture wounds 1 with small ulceration on the radial aspect. There is redness of the distal forearm that moves up to the proximal forearm on the volar aspect small streaking noted near the medial epicondyle. No streaking in the upper arm or tenderness. There is no crepitus. Ulcer express small amount of exudates with cultures collected. General Extremety ED: Yes edema and tenderness General Extremity: edema Neuro oriented x3 and no sensory deficits noted Sensorium / Orientation: awake and alert MDM MDM MDM Narrative Medical decision making narrative: Interventions / MDM: Differential diagnosis: Cellulitis, immunocompromise Diagnosis considered but do not suspect: N/A My EKG interpretation: N/A Imaging independently reviewed and interpreted by myself: Left forearm 2 views: No radiopaque foreign bodies, no soft tissue gas External documents reviewed: N/A Test considered but not ordered:N/A ED course: Patient vital stable however immunocompromised patient with cat bite cellulitis. Sepsis labs were ordered, left forearm x-ray, cultures from drainage was obtained. Penicillin allergy causing local hives. She started on Rocephin and Flagyl IV. Tetanus updated. Labs White count 2. Elevated serum P of 115. X-ray negative for any soft tissue gas or radiopaque foreign bodies. Wound culture, culture ending. 0605: I spoke with hospitalist Dr. Olea for admission. Re-evaluation: stable Disposition discussed with patient/family/significant other: Patient Case discussed with consulting clinician: Hospitalist This note was generated with [employer] dictation software. It may contain incorrect words, spelling, and punctuation that were not noted in checking the note before signing. Discharge Plan Dx/Rx/DC Orders Clinical Impression: Cat bite of left forearm with infection, Squamous cell carcinoma of lung, stage III, Cellulitis, Immunosuppressed status, Tetanus toxoid vaccination administered at current visit Disposition Disposition: Acute Care Hospital [facility]
[2023-01-15 05:28] LABS: Absolute Lymphocyte Count 0.36 X10^3/uL (0.83-4.51); Absolute Neutrophil Count 5.1 X10^3/uL (2.0-7.7); Basophil# 0.05 X10^3/uL; Basophil% 0.8 % (0-1); Eosinophil# 0.06 X10^3/uL; Hematocrit 41.3 % (37-47); Hemoglobin 13.5 g/dL (12.0-15.0); Lymphocyte # 0.36 X10^3/ul (0.83-4.51); Lymphocyte % 5.9 % (19-41); Mean Corp Hgb Conc 32.7 g/dL (32-36); Mean Corpuscular Hgb 29.6 pg (27.0-32.0); Mean Corpuscular Volume 90.6 fL (81-99); Mean Platelet Vol. 9.8 fl (6.2-12.0); Monocyte% 8.1 % (0-10); NRBC Flagged by Analyzer 0 % (0-5); Neutrophil # 5.13 X10^3/uL (2.7-7.7); Neutrophil % 83.4 % (47-70); POSITIVE DIFFERENTIAL YES; Platelet Count 189 K/mm3 (150-450); RBC Distribution Width CV 12.9 % (11.6-14.6); RBC Distribution Width SD 42.5 fl (35.1-43.9); Red Blood Count 4.56 M/mm3 (4.2-5.4); White Blood Count 6.2 K/mm3 (4.4-11.0)
--- NOTE | 2023-01-15 05:28 | RAD_ITS ---
INDICATION: infection EXAMINATION/TECHNIQUE: X-RAY - LEFT XR Forearm 2 Views COMPARISON: None. FINDINGS: 2 views of the left forearm. BONES: Normal anatomic alignment without evidence of fracture or subluxation. No concerning bony lesion or abnormal sclerosis to suggest lesion. JOINTS: No significant degenerative change. SOFT TISSUES: Unremarkable. RAD/Forearm 2 Views IMPRESSION: No acute osseous abnormality of the left forearm. Electronically Signed: Edi Pederson MD at 5:59 EDT ,
[2023-01-15 05:37] LABS: Differential Indicated SCAN CRITERIA MET
[2023-01-15 05:43] LABS: Prothrombin Time (Protime)PT. 12.9 SECONDS (11.7-14.9)
[2023-01-15 05:44] LABS: Partial Thromboplast Time 31.4 Seconds (24.1-36.2)
[2023-01-15] MEDS: metroNIDAZOLE 500 MG/100 ML BAG 100 MG IV (05:46)
[2023-01-15 05:55] LABS: ALB/GLOB Ratio 0.8 RATIO (0.9-2.4); AST(SGOT) 15 U/L (15-37); Alanine Aminotransfer ALT/SGPT 15 U/L (13-56); Albumin, Serum 3.2 g/dL (3.2-5.0); Alkaline Phosphatase 73 U/L (45-117); Anion Gap 7 (5-15); BUN 13 mg/dL (7-18); BUN/Creat Ratio 15.6 RATIO (10-20); Calcium,Total 8.7 mg/dL (8.5-10.1); Chloride 103 mmol/L (98-107); Creatinine, Serum 0.83 mg/dL (0.55-1.02); EST Glomerular Filtration Rate 72 mL/min (>60); Est Glom Filt Rate - Afr Amer 87 mL/min (>60); Estimated Creatinine Clearance 55.94 ml/min; Globulin 3.8 g/dL (2.2-4.2); Glucose 101 mg/dL (74-106); Potassium 3.6 mmol/L (3.5-5.1); Sodium Level 140 mmol/L (136-145)
[2023-01-15 06:04] LABS: Lactic Acid 0.8 mmol/L (0.4-1.9)
--- NOTE | 2023-01-15 06:04 | HP.PCM.HOS_ITS ---
HPI - General General Date of Admission: 01/15/23 Date of Service: 01/15/23 Chief Complaint: L wrist/left forearm cat bite, worsening redness, drainage. 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 Francisco currently undergoing chemotherapy and radiation with last noted 01/09/23 who presents to the [facility] ED on 01/15/23 with history of cat bite to the L wrist/forearm 2 days prior with worsening appearance with purulent discharge from the bite region as well as erythema with red streaking up the arm prompting eventual ED evaluation. The cat is her cat and is up-to-date on all vaccinations. She notes that recently her children had brought over a dog which has caused the cat to act up. Work-up in the ED included T98.2, heart rate 95, BP 147/91, respiratory rate 16, 92% on room air, CBC with WBC 6.2, human 13.5, platelet 189 with lymphopenia, unre markable coags, CMP with T. bili 1.50, CRP 115, ESR pending upon requested evaluation of patient, plain film of the left forearm and hand pending upon request evaluation of patient, blood culture x2 pending per ED, wound culture pending per ED. In the ED patient administered IV Rocephin and IV Flagyl given penicillin allergy as well as a tetanus update. [facility] Medical History Cataract Chronic respiratory failure with hypoxia Essential hypertension Former smoker Graves disease HLD (hyperlipidemia) Hypothyroidism Loss of hearing Regional lymph node metastasis present Restless leg syndrome Squamous cell carcinoma of lung, stage III Stage 2 moderate COPD by GOLD classification TIA (transient ischemic attack) Wears dentures Home Medications clonazepam 1 mg tablet 2 mg PO QHS ANXIETY 12/28/20 [History Last Taken 11/05/22] cholecalciferol (vitamin D3) 10 mcg (400 unit) capsule (Vitamin D3) 10 mcg PO DAILY SUPPLEMENT 04/02/22 [History Last Taken 11/05/22] aspirin 81 mg tablet,delayed release 81 mg PO DAILY [facility] 11/06/22 [His tory Last Taken 11/05/22] calcium carbonate 500 mg-vitamin D3 3.125 mcg (125 unit) tablet 1 tab PO DAILY SUPPLEMENT 11/06/22 [History Last Taken 11/05/22] tiotropium 2.5 mcg-olodaterol 2.5 mcg/actuation mist for inhalation (Stiolto Respimat) 2 puff inhalation DAILY COPD #4 grams 11/29/22 [Rx Last Taken Unknown] benzonatate 200 mg capsule 200 mg PO TID #30 caps 12/28/22 [Rx Last Taken Unknown] levothyroxine 100 mcg tablet 100 mcg PO DAILY 12/28/22 [History Last Taken Unknown] lidocaine-prilocaine 2.5 %-2.5 % topical cream 1 applic topical ONCE PRN port access 30 days #30 grams 12/28/22 [Rx Last Taken Unknown] ondansetron 8 mg disintegrating tablet 8 mg PO Q8H PRN nausea and vomiting #30 tabs 12/28/22 [Rx Last Taken Unknown] Allergy/AdvReac Type Severity Reaction Status Date / Time Penicillins [PCN] Allergy Intermediate Swelling Verified 01/09/23 15:12 cheese Allergy Hives Verified 01/09/23 15:12 chocolate flavor Allergy Rash Verified 01/09/23 15:12 Family History Mother Hypertension Father Hypertension Surgical History History of appendectomy History of hysterectomy Social History household members: none Smoking Status: Former smoker alcohol intake: never substance use type: does not use ROS ROS Narrative Admission Review of Systems: CONSTITUTIONAL: No weight loss, fever, chills, + weakness or fatigue. HEENT: Eyes: No visual loss, blurred vision, double vision or yellow sclerae. Ears, Nose, Throat: No hearing loss, sneezing, congestion, runny nose or sore throat. SKIN: + LUE with cat bite, purulent drainage, erythema, red streaks. CARDIOVASCULAR: No chest pain, chest pressure or chest discomfort, palpitations, edema, orthopnea, syncopal events. RESPIRATORY: + chronic shortness of breath. No marked cough or sputum, wheezing, hemoptysis. GASTROINTESTINAL: No anorexia, nausea, vomiting or diarrhea, abdominal pain, melena, BRBPR. GENITOURINARY: No dysuria, frequency, urgency or retention. NEUROLOGICAL: No headache, dizziness, syncope, paralysis, ataxia, numbness or tingling in the extremities, focal weakness, change in bowel or bladder control, seizure. MUSCULOSKELETAL: + muscle, back pain, joint pain or stiffness. HEMATOLOGIC: No anemia, bleeding or bruising. LYMPHATICS: No enlarged nodes. No history of splenectomy. PSYCHIATRIC: + history of depression or anxiety. ENDOCRINOLOGIC: No reports of sweating, cold or heat intolerance. No polyuria or polydipsia. ALLERGIES: + history of hives. Vital Signs Vital Signs Vital Signs: 01/15/23 04:50 01/15/23 05:00 Temperature 98.2 F 98.2 F Temperature Source Oral Oral Pulse Rate 95 95 Respiratory Rate 16 16 Blood Pressure 157/83 H 147/91 H Blood Pressure Mean 107 109 Pulse Ox 93 92 Oxygen Delivery Method Room Air Room Air Weight Weight: 150 lb 2.157 oz Body Mass Index (BMI) 25.0 Physical Exam Narrative Physical Examination: General: Awake, alert, oriented x 3 and cooperative, seated upright in the ED bed in no apparent distress, initially talking on the phone. Skin: Normal color, normal turgor, no icterus, no cyanosis except for left upper extremity with cat bite with small open region on the left forearm near the wrist medially with some mild purulent drainage with erythema extending from there upward with mild increased edema and warmth to the region. HEENT: AT/NC, EOMI, PERRLA, mildly dry MM, no carotid bruits or JVD noted. Lungs: CTA bilaterally, moderate effort, mild decrease BL bases, no rales, ronchi or wheezing. Heart: Currently regular rate and rhythm; no gallop, rub audible. Abdomen: Soft, NTTP, ND, normal BS, no HSM. Extremities: No cyanosis, no clubbing, see skin. Neurological: Patient awake, alert, oriented as noted, cognitive function intact; pupils equally reactive to light and accommodation, cranial nerves grossly normal, moving all 4 extremities although limited left upper extremity movement secondary to pain elicited with acute presentation as noted, strength accordingly mildly to moderately globally decreased. Psychiatric: Affect appears normal, no acute evidence of depressive or anxiety f andreas. Results Lab / Micro Data 01/15/23 05:17 01/15/23 05:17 Labs: Laboratory Results - last 24 hr 01/15/23 05:17: WBC 6.2, RBC 4.56, Hgb 13.5, Hct 41.3, MCV 90.6, MCH 29.6, MCHC 32.7, RDW Std Deviation 42.5, RDW Coeff of Ruthie 12.9, Plt Count 189, MPV 9.8, Immature Gran % (Auto) 0.800, Neut % (Auto) 83.4 H, Lymph % (Auto) 5.9 L, [place] % (Auto) 8.1, Eos % (Auto) 1.0, Baso % (Auto) 0.8, Absolute Neuts (auto) 5.1, Absolute Lymphs (auto) 0.36 L, Nucleated RBC % 0, PT 12.9, INR 1.0, APTT 31.4, Sodium 140, Potassium 3.6, Chloride 103, Carbon Dioxide 30.0, Anion Gap 7, BUN 13, Creatinine 0.83, Estim Creat Clear Calc 55.94, Est GFR (MDRD) Af Amer 87, Est GFR (MDRD) Non-Af 72, BUN/Creatinine Ratio 15.6, Glucose 101, Lactic Acid 0.8, Calcium 8.7, Total Bilirubin 1.50 H, AST 15, ALT 15, Alkaline Phosphatase 73, C-React Prot Ext Range 115.00 H, Total Protein 7.0, Albumin 3.2, Globulin 3.8, Albumin/Globulin Ratio 0.8 L Radiology Impression Forearm X-Ray 01/15/23 05:28 IMPRESSION: No acute osseous abnormality of the left forearm. 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 Francisco currently undergoing chemotherapy and radiation with last noted 01/09/23 who presents to the [facility] ED on 01/15/23 with history of cat bite to the L wrist/forearm 2 days prior with worsening appearance with purulent discharge from the bite region as well as erythema with red streaking up the arm prompting eventual ED evaluation. #1. Left Forearm/PENNIE Extremity Cellulitis secondary to Infected cat bite: Will admit to medical surgical floor, maintain on IV Rocephin and IV Flagyl given allergies noted, will obtain Wound Cx, will obtain Wound MRSA PCR to be cautious although again initial etiology of cat bite is noted, plan repeat CBC in AM, continue affected extremity elevation above heart when seated and in bed, monitor erythema outline with VS checks, if worsening low threshold to obtain duplex US to assure no DVT concurrently, PRN pain regimen, PRN antiemetic rodrigo men. #2. Stage IIIB (cT3 cN2 M0) squamous cell carcinoma within the right lower lobe: Following with Dr. Francisco and Dr. Fuchs, undergoing both chemotherapy and radiation, last radiation noted 01/09/23, mag and phos pending. #3. Chronic COPD with chronic hypoxic respiratory failure: Noted chart history of chronic hypoxic respiratory failure however most recent visit prior 01/09/2023 patient was noted to be 96% on room air, will temporally hold home inhalers and in the interim place on ATC budesonide therapy, PRN albuterol, HOB, IS parameters. #4. Hypothyroidism: Hx Graves disease s/p radioactive iodine treatment, will continue patient home levothyroxine regimen. #5. Anxiety: We will continue patient home clonazepam regimen. #6. Former tobacco use: Encourage continued tobacco cessation. #7. Hypertension: Noted in chart history, not on regimen, BP is elevated above goal but patient presenting acutely as noted #1, continue to monitor and add regimen if appropriate, as needed IV hydralazine in interim. #8. Hyperlipidemia: Noted in chart history, not on regimen, defer to outp atient. #9. History TIA: We will continue aspirin, not on statin therapy nor hypertensive regimen, continue to monitor and add if appropriate as noted. #10. GERD with history of esophagitis: Noted most recent oncology/rad oncology notes, will maintain on PPI with as needed Mylanta also. #11. DVT prophylaxis: Lovenox. Charges/Coding Visit Charges Inpatient E&M: 63677 Init Hosp L3
[2023-01-15] MEDS: Diphth,Pertuss(Acell),Tet Vac 0.5 ML Vial IM (06:23)
[2023-01-15 06:39] LABS: Magnesium 2.4 mg/dL (1.6-2.6); Phosphorus 2.9 mg/dL (2.5-4.9)
[2023-01-15] MEDS: Ceftriaxone 1 GM/50 ML BAG IV (06:56)
[2023-01-15 06:58] LABS: Differential Comment SCANNED
[2023-01-15 06:59] LABS: Erythrocyte Sedimentation Rate 34 mm/hr (0-30)
--- NOTE | 2023-01-15 09:54 | NURSING ---
off unit for radiation
[2023-01-15] MEDS: Levothyroxine 100 MCG Tablet PO (10:50)
[2023-01-15] MEDS: Aspirin E.C. 81 MG Tablet PO (10:50)
[2023-01-15] MEDS: Enoxaparin 40 MG/0.4 ML Syringe SC (10:50)
[2023-01-15] MEDS: 0.9% Normal Saline 1,000 ML 100 ML IV (10:50)
[2023-01-15 11:41] LABS: M R Staph aureus DNA By PCR Negative (Negative); Probe Check PASS; Specimen Processing Control PASS; Staph aureus DNA By PCR NEGATIVE (Negative)
--- NOTE | 2023-01-15 11:50 | CASEMGMT ---
JOSE BAH Assessment: Face to Face with pt for initial transition planning/care coordination assessment. RN NIURKA introduced self and role at [facility], pt voices understanding and consents to assessment. Pt is A/O x4 and answers all questions appropriately at this time. Pt lying in bed in no distress. Care providers, pharmacy, and demographics verified/updated. Admitting Dx:cellulitis, cat bite PCP:Pepito Specialists:Maryam onc; vazquez Fuchs onc Preferred Pharmacy: [facility] Retail Insurance: [employer] Prescription Benefit: yes LNOK: Polo Mckeon dtr Living Arrangements: Pt noni is staying with her currently to assist with cleaning. Pt lives in a two story home with 2 steps to enter. Pt states there is 13 steps to her bathroom. Pt reports she is I in getting groceries, laundry and meals. Pt denies concerns at home. Transportation: Pt drives self and denies concerns with transportation. DME/HHC/SNF: Pt does not use [facility]. Pt denies hx of HHC or SNF stays. Pt states no concerns with going home at time of dc. 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 6 Clicks =18. Discussed with hospitalist, no therapy orders received. Pt states no further concerns/needs. CM to follow. Advised pt to ask CM if any further question/concerns/needs arise, voices understanding. Pt Goal: Home Plan: Home
[2023-01-15] MEDS: Famotidine 20 MG Tablet 40 MG PO ×3 (12:24→21:56)
[2023-01-15] MEDS: Loperamide (Oral Liquid) 1 MG/7.5 ML ML 2 MG PO ×2 (14:14→21:59)
--- NOTE | 2023-01-15 17:29 | PCM.HOSP.N ---
Hospitalist Note Patient was seen and examined briefly today, she was admitted for cellulitis of her left forearm secondary to a cat bite which she sustained on Sunday. I had nursing discussed the patient's allergies with her, she confirms that she is able to take Augmentin although she has penicillin listed as an allergy. I have decided at this time to change her antibiotics from Rocephin and Flagyl to Unasyn. Patient also requests that she be given Pepcid instead of Protonix, I have stopped her Protonix and placed her on oral Pepcid.
[2023-01-15] MEDS: clonazePAM 1 MG Tablet 2 MG PO (21:56)
[2023-01-16 03:45] VITALS: BP 118/67; PULSE 86; RESP 16; TEMP 36.8; O2SAT 93
[2023-01-16] MEDS: 0.9% Normal Saline 1,000 ML 100 ML IV (03:58)
[2023-01-16 04:40] VITALS: BMI 25.0
[2023-01-16] MEDS: Levothyroxine 100 MCG Tablet PO (06:34)
[2023-01-16 07:00] LABS: Absolute Neutrophil Count 3.3 X10^3/uL (2.0-7.7); Basophil# 0.03 X10^3/uL; Basophil% 0.7 % (0-1); Eosinophil# 0.08 X10^3/uL; Eosinophils% 1.9 % (0-5); Hematocrit 38.1 % (37-47); Hemoglobin 12.3 g/dL (12.0-15.0); Lymphocyte % 9.4 % (19-41); Mean Corp Hgb Conc 32.3 g/dL (32-36); Mean Corpuscular Hgb 29.6 pg (27.0-32.0); Mean Corpuscular Volume 91.6 fL (81-99); Mean Platelet Vol. 9.3 fl (6.2-12.0); Monocyte# 0.45 X10^3/uL; Monocyte% 10.6 % (0-10); NRBC Flagged by Analyzer 0 % (0-5); Neutrophil # 3.26 X10^3/uL (2.7-7.7); Neutrophil % 76.7 % (47-70); POSITIVE DIFFERENTIAL YES; Platelet Count 223 K/mm3 (150-450); RBC Distribution Width CV 13.1 % (11.6-14.6); RBC Distribution Width SD 42.6 fl (35.1-43.9); Red Blood Count 4.16 M/mm3 (4.2-5.4); White Blood Count 4.3 K/mm3 (4.4-11.0)
[2023-01-16 07:18] LABS: Differential Comment SCANNED; Differential Indicated SCAN CRITERIA MET
[2023-01-16 07:26] LABS: ALB/GLOB Ratio 0.8 RATIO (0.9-2.4); AST(SGOT) 13 U/L (15-37); Alanine Aminotransfer ALT/SGPT 11 U/L (13-56); Albumin, Serum 2.8 g/dL (3.2-5.0); Alkaline Phosphatase 62 U/L (45-117); Anion Gap 3 (5-15); BUN 8 mg/dL (7-18); BUN/Creat Ratio 12.1 RATIO (10-20); Calcium,Total 8.5 mg/dL (8.5-10.1); Chloride 107 mmol/L (98-107); Creatinine, Serum 0.66 mg/dL (0.55-1.02); EST Glomerular Filtration Rate 94 mL/min (>60); Est Glom Filt Rate - Afr Amer 114 mL/min (>60); Estimated Creatinine Clearance 46.43 ml/min; Globulin 3.7 g/dL (2.2-4.2); Glucose 94 mg/dL (74-106); Potassium 3.6 mmol/L (3.5-5.1); Protein, Total 6.5 g/dL (6.4-8.2); Sodium Level 137 mmol/L (136-145)
--- NOTE | 2023-01-16 09:15 | DCINST_ITS ---
Discharge Instructions Diet Discharge Diet: No restrictions Activity Discharge Activity: Return to Normal Activity Return to work on:: 01/19/23 Weight Bearing Status: Full weight bearing Follow Up Care Test Results: Test results from this visit will be discussed in further detail at your follow- up appointment, if applicable. Discharge Plan Admission Admit Date/Time: 01/15/23 05:59 Primary Reason for Your Visit: cellulitis left arm Attending Provider: Jayesh Pina Primary Care Provider: Leidy Beyer Consulting Providers: Michelle Olea Discharge Orders/Prescriptions Prescriptions: New famotidine [Pepcid] 40 mg tablet 40 mg PO BID Qty: 60 0RF amoxicillin-pot clavulanate 875-125 mg tablet 1 tab PO BID Qty: 18 0RF Rx Instructions: take with food Continued levothyroxine 100 mcg tablet 100 mcg PO DAILY lidocaine-prilocaine 2.5-2.5 % cream 1 applic topical ONCE PRN (Reason: port access) 30 Days Qty: 30 2RF ondansetron 8 mg tablet,disintegrating 8 mg PO Q8H PRN (Reason: nausea and vomiting) Qty: 30 2RF benzonatate 200 mg capsule 200 mg PO TID Qty: 30 2RF clonazepam 1 mg tablet 2 mg PO QHS cholecalciferol (vitamin D3) [Vitamin D3] 10 mcg (400 unit) capsule 10 mcg PO DAILY Patient Comments: 1 capsule by mouth as directed calcium carbonate-vitamin D3 500 mg-3.125 mcg (125 unit) Tablet 1 tab PO DAILY aspirin 81 mg tablet,delayed release (DR/EC) 81 mg PO DAILY Hold Instructions: Resume on 11/13/22. loperamide [Imodium A-D] 15 ml PO Q8H PRN PRN (Reason: diarrhea) Stiolto Respimat 2.5-2.5 mcg/actuation mist 2 puff inhalation DAILY MDD 2 puffs Qty: 4 6RF Discontinued famotidine [Pepcid] 40 mg tablet 40 mg PO BID Referrals / Follow Up: Leidy Beyer DO [Primary Care Provider] - In 1 Week Srinivasa Francisco MD [Med Staff - Active Staff] - See Referral Note (next Sunday) Disposition Disposition (needs filled in before D/C Order can be placed): Home, Self Care
--- NOTE | 2023-01-16 09:32 | PCM.DC.SUM ---
Providers Date of Admission: 01/15/23 Date of Discharge: 01/16/23 Primary Care Physician: Dr. Leidy Beyer DO Reason For Visit: CELLULITIS, CAT BITE Diagnosis Discharge Diagnosis (1) Cat bite of left forearm with infection: Status: Inactive Code(s): S51.852A - Open bite of left forearm, initial encounter; L08.9 - Local infection of the skin and subcutaneous tissue, unspecified; W55.01XA - Bitten by cat, initial encounter (2) Cellulitis: Status: Acute Code(s): L03.90 - Cellulitis, unspecified Plan 1. Cellulitis of the left forearm from Pasteurella multocida secondary to puncture wound from cat bite #2 hypothyroidism #3 chronic obstructive pulmonary disease #4 squamous cell carcinoma of the right lower lung Medications at Discharge Home Medications clonazepam 1 mg tablet 2 mg PO QHS ANXIETY 12/28/20 cholecalciferol (vitamin D3) 10 mcg (400 unit) capsule (Vitamin D3) 10 mcg PO DAILY SUPPLEMENT 04/02/22 aspirin 81 mg tablet,delayed release 81 mg PO DAILY [facility] 11/06/22 calcium carbonate 500 mg-vitamin D3 3.125 mcg (125 unit) tablet 1 tab PO DAILY SUPPLEMENT 11/06/22 tiotropium 2.5 mcg-olodaterol 2.5 mcg/actuation mist for inhalation (Stiolto Respimat) 2 puff inhalation DAILY COPD #4 grams 11/29/22 benzonatate 200 mg capsule 200 mg PO TID #30 caps 12/28/22 levothyroxine 100 mcg tablet 100 mcg PO DAILY 12/28/22 lidocaine-prilocaine 2.5 %-2.5 % topical cream 1 applic topical ONCE PRN port access 30 days #30 grams 12/28/22 ondansetron 8 mg disintegrating tablet 8 mg PO Q8H PRN nausea and vomiting #30 tabs 12/28/22 loperamide 15 ml PO Q8H PRN PRN diarrhea 01/15/23 amoxicillin 875 mg-potassium clavulanate 125 mg tablet 1 tab PO BID #18 tabs 01/16/23 famotidine 40 mg tablet (Pepcid) 40 mg PO BID #60 tabs 01/16/23 tramadol 50 mg tablet 50 mg PO BID PRN 01/17/23 Hospital Course Operations None Procedures None Summary of Care Provided Minutes Spent on Discharge: 31 Hospital Course: This 72-year-old white female was seen in the emergency room at [facility] with complaints of swelling and redness in her left forearm over 48 hours after the patient had gotten bitten by her cat. Cat bite was near her left wrist area. Work-up in the emergency room revealed the left forearm to be reddened and tender to palpation, there was generalized swelling of the left forearm and left hand. Patient's white blood cell count was normal, patient was admitted to [place] [id number] and placed on IV Rocephin and IV Flagyl, it was ascertained the next day that the patient was not allergic to penicillin and her coverage was changed to Unasyn. Over the next 24 hours, patient's clinical picture improved. On 01/16/2023, patient was seen and examined: On examination she appeared in good health and spirits, she does not appear to be in any distress. Vital signs as documented. Skin warm and dry and without overt rashes. Neck without JVD, thyroid appears normal, trachea is midline, neck is supple. Lungs clear, normal air movement was noted. Heart exam notable for regular rhythm, normal sounds and absence of murmurs, rubs or gallops. Abdomen unremarkable and without evidence of organomegaly, masses, or abdominal aortic enlargement, bowel sounds are present in all 4 quadrants, no abdominal tenderness was noted. Extremities-there is noted to be redness and some swelling of the left forearm and dorsum of the hand, patient was able to make almost a complete fist with her left hand, no cyanosis was noted, no clubbing was noted. Neuro: Cranial nerves II through XII are grossly intact, no focal motor deficits were noted, sensation to light touch and pinprick is intact, motor exam 5/5 throughout. Psych: Patient is alert and oriented x3, she does not appear anxious or depressed, she does not appear agitated. On 01/16/2023, patient was felt to be stable for discharge home. Weight / BMI Weight Weight: 68.1 kg Body Mass Index (BMI) 25.0 ABG / Lab / Microbiology Data 01/16/23 06:40 01/16/23 06:40 Laboratory: Laboratory Results - last 24 hr 01/15/23 07:00: S.aureus Protein A PCR NEGATIVE, MRSA (PCR) Negative 01/16/23 06:40: WBC 4.3 L, RBC 4.16 L, Hgb 12.3, Hct 38.1, MCV 91.6, MCH 29.6, MCHC 32.3, RDW Std Deviation 42.6, RDW Coeff of Ruthie 13.1, Plt Count 223, MPV 9.3, Immature Gran % (Auto) 0.700, Neut % (Auto) 76.7 H, Lymph % (Auto) 9.4 L, [place] % (Auto) 10.6 H, Eos % (Auto) 1.9, Baso % (Auto) 0.7, Absolute Neuts (auto) 3.3, Absolute Lymphs (auto) 0.40 L, Nucleated RBC % 0, Differential Comment SCANNED, Diff Path Review October, Sodium 137, Potassium 3.6, Chloride 107, Carbon Dioxide 27.0, Anion Gap 3 L, BUN 8, Creatinine 0.66, Estim Creat Clear Calc 46.43, Est GFR (MDRD) Af Amer 114, Est GFR (MDRD) Non-Af 94, BUN/Creatinine Ratio 12.1, Glucose 94, Calcium 8.5, Total Bilirubin 1.00, AST 13 L, ALT 11 L, Alkaline Phosphatase 62, Total Protein 6.5, Albumin 2.8 L, Globulin 3.7, Albumin/Globulin Ratio 0.8 L Microbiology: Microbiology 01/15/23 07:00 Bite, Cat Gram Stain - Final 01/15/23 05:20 Wound Drainage - Aerobic & Anaerobic Swabs Gram Stain - Final D/C Instructions Discharge Diet: No restrictions Return to work on: 01/19/23 Weight Bearing Status: Full weight bearing Meaningful Use Info Meaningful Use Diagnoses (Choose all that apply): None applicable Discharge Plan Admission Admit Date/Time: 01/15/23 05:59 Primary Reason for Your Visit: cellulitis left arm Attending Provider: Jayesh Pina Primary Care Provider: Leidy Beyer Consulting Providers: Michelle Olea Discharge Orders/Prescriptions Prescriptions: New famotidine [Pepcid] 40 mg tablet 40 mg PO BID Qty: 60 0RF amoxicillin-pot clavulanate 875-125 mg tablet 1 tab PO BID Qty: 18 0RF Rx Instructions: take with food Continued levothyroxine 100 mcg tablet 100 mcg PO DAILY lidocaine-prilocaine 2.5-2.5 % cream 1 applic topical ONCE PRN (Reason: port access) 30 Days Qty: 30 2RF ondansetron 8 mg tablet,disintegrating 8 mg PO Q8H PRN (Reason: nausea and vomiting) Qty: 30 2RF benzonatate 200 mg capsule 200 mg PO TID Qty: 30 2RF clonazepam 1 mg tablet 2 mg PO QHS cholecalciferol (vitamin D3) [Vitamin D3] 10 mcg (400 unit) capsule 10 mcg PO DAILY Patient Comments: 1 capsule by mouth as directed calcium carbonate-vitamin D3 500 mg-3.125 mcg (125 unit) Tablet 1 tab PO DAILY aspirin 81 mg tablet,delayed release (DR/EC) 81 mg PO DAILY Hold Instructions: Resume on 11/13/22. loperamide [Imodium A-D] 15 ml PO Q8H PRN PRN (Reason: diarrhea) Stiolto Respimat 2.5-2.5 mcg/actuation mist 2 puff inhalation DAILY MDD 2 puffs Qty: 4 6RF Discontinued famotidine [Pepcid] 40 mg tablet 40 mg PO BID No Action tramadol 50 mg tablet 50 mg PO BID PRN Referrals / Follow Up: Leidy Beyer DO [Primary Care Provider] - 01/24/23 11:00 am (seeing doctor max galloway dont have any openings for the time frame needed) Srinivasa Francisco MD [[facility] Staff - Active Staff] - See Referral Note (next Sunday) Disposition Disposition (needs filled in before D/C Order can be placed): Home, Self Care Charges/Coding Visit Charges Inpatient E&M: 11184 Disch Hosp >30min
[2023-01-16] MEDS: Famotidine 20 MG Tablet 40 MG PO (09:46)
[2023-01-16 09:50] VITALS: BP 102/76; PULSE 103; RESP 16; TEMP 36.9; O2SAT 93
--- NOTE | 2023-01-16 09:56 | PHA.DC.MC.R ---
Pharmacy [facility] Service has performed discharge medication reconciliation and counseling for this patient. 1. AUGMENTIN 875MG PO BID X 9 DAYS The patient's discharge medication list was reviewed for discrepancies and discrepancies were resolved. The patient was counseled on the following discharge medications and changes in medications for homegoing were reviewed. The Reason for Use, instructions for use, and potential side effects were reviewed for all new medications. The patient's questions regarding all of their medications were answered. The patient was able to verbally demonstrate an understanding of their discharge medications. Patient counseled by pharmacy teacherNinoska. Medications at Discharge Home Medications clonazepam 1 mg tablet 2 mg PO QHS ANXIETY 12/28/20 cholecalciferol (vitamin D3) 10 mcg (400 unit) capsule (Vitamin D3) 10 mcg PO DAILY SUPPLEMENT 04/02/22 aspirin 81 mg tablet,delayed release 81 mg PO DAILY [facility] 11/06/22 calcium carbonate 500 mg-vitamin D3 3.125 mcg (125 unit) tablet 1 tab PO DAILY SUPPLEMENT 11/06/22 tiotropium 2.5 mcg-olodaterol 2.5 mcg/actuation mist for inhalation (Stiolto Respimat) 2 puff inhalation DAILY COPD #4 grams 11/29/22 benzonatate 200 mg capsule 200 mg PO TID #30 caps 12/28/22 levothyroxine 100 mcg tablet 100 mcg PO DAILY 12/28/22 lidocaine-prilocaine 2.5 %-2.5 % topical cream 1 applic topical ONCE PRN port access 30 days #30 grams 12/28/22 ondansetron 8 mg disintegrating tablet 8 mg PO Q8H PRN nausea and vomiting #30 tabs 12/28/22 loperamide 15 ml PO Q8H PRN PRN diarrhea 01/15/23 amoxicillin 875 mg-potassium clavulanate 125 mg tablet 1 tab PO BID #18 tabs 01/16/23 famotidine 40 mg tablet (Pepcid) 40 mg PO BID #60 tabs 01/16/23
[2023-01-16 13:22] LABS: Pathologist Review Reviewed
== END 2023-01-16 09:56 | disposition home or self-care (01) | DRG 603 ==
LOC: ED 06:11 → MS3 06:33
PROVIDERS: Admitting Provider Family Medicine; Emergency Provider Emergency Medicine; PCP Family Medicine; Visit Provider Internal Medicine
DX: L03.114 Cellulitis of left upper limb (principal); D84.9 Immunodeficiency, unspecified; C34.31 Malignant neoplasm of lower lobe, right bronchus or lung; J96.11 Chronic respiratory failure with hypoxia; J44.9 Chronic obstructive pulmonary disease, unspecified; E03.9 Hypothyroidism, unspecified; I10 Essential (primary) hypertension; E78.5 Hyperlipidemia, unspecified; S51.852A Open bite of left forearm, initial encounter; K21.00 Gastro-esophageal reflux disease with esophagitis, without bleeding; Z92.3 Personal history of irradiation; Z23 Encounter for immunization; Z87.891 Personal history of nicotine dependence; Z79.82 Long term (current) use of aspirin; W55.01XA Bitten by cat, initial encounter
CPT/HCPCS: 36415; 73090; 77386; 80053; 83605; 83735; 84100; 85025; 85610; 85652; 85730; 86140; 87040; 87070; 87075; 87077; 87186; 87205; 87640; 90471; 90715; 99284; J7030; J7050; A4216; J0295

== ENCOUNTER → 2023-03-06 | Outpatient (CLI) | payer MEDICARE, SELFPAY ==
--- NOTE | 2023-03-06 14:38 | CT_ITS ---
STUDY: CT CHEST T ABDOMEN WITH CONTRAST REASON FOR EXAM: Female, 72 years old. Restaging NSCLC; IV contrast only RADIATION DOSAGE (If Supplied By Facility): CTDIvol = ( 7.86 ) mGy, DLP = ( 522.07 ) mGycm TECHNIQUE: Transaxial imaging was performed following intravenous administration of IV 100mL Isovue-300. Multiplanar coronal and sagittal images were reformatted. Individualized dose optimization techniques were used for this CT. COMPARISON: Comparison is made with prior examination dated November 02, 2022. FINDINGS: CHEST A right-sided ezequiel catheter is seen with the tip in the superior vena cava. Since prior study, there has been slight decrease in the size of the soft tissue infiltrate in the posterior aspect of the right lung apex. This abuts the major fissure. There is a persistent 2.2 cm x 1.2 cm spiculated nodule in the medial aspect of the right middle lobe abutting the right cardiac border. Several patchy areas of reticular nodular opacities are seen in the right middle lobe laterally. The previously seen volume loss in the right lower lobe as almost completely resolved. Residual 1.3 cm nodular density in the peripheral lateral aspect of the right lower lobe as seen on axial image #80. Mild persistent increased markings are seen in the superior segment of the right lower lobe. The left lung is unremarkable. There is no demonstrated pleural abnormality. There are calcifications of the coronary arteries. Mild residual soft tissue density in the subcarinal region. Mild residual enlargement of the right hilar lymph nodes. Normal unenhanced pulmonary arteries. There is atherosclerotic calcification of the aortic arch. There is demineralization of the thoracic spine. ABDOMEN Normal liver. Normal gallbladder and extrahepatic biliary system. Normal spleen. Normal pancreas. Normal bilateral adrenal glands. Normal right kidney. Normal left kidney. Normal visualized stomach. Normal small intestine. Normal colon. The appendix is visualized and appears normal. There is diffuse atherosclerotic calcification of the abdominal aorta and its major visceral branches, without a demonstrated aneurysm. Normal inferior vena cava. Normal retroperitoneum. Normal abdominal wall. There are diffuse degenerative changes of the visualized lumbar spine. CT/CT Chest AND Abd W/ Contrast IMPRESSION: Interval improvement of the right lower lobe volume loss and mass lesion with mild residual changes as described. The left lung remains clear. Electronically Signed: Abdifatah Oneal MD at 15:33 EDT ,
[2023-03-06] MEDS: 0.9 % NaCl (Sterile) Posiflush 10 mL IV (15:00)
== END | disposition home or self-care (01) ==
LOC: CT 14:36
PROVIDERS: PCP Family Medicine; Referring Provider Internal Medicine Hematology & Oncology; Visit Provider Internal Medicine Hematology & Oncology
DX: C34.90 Malignant neoplasm of unspecified part of unspecified bronchus or lung (principal)
CPT/HCPCS: 71260; 74160; Q9967; A4216

== ENCOUNTER 2023-03-19 08:31 | Outpatient (CLI) | payer MEDICARE, SELFPAY ==
[2023-03-19 09:33] LABS: D-Dimer Quantitative (DVT/PE) 0.75 FEU/ug/m (0.27-0.49)
[2023-03-19 09:41] LABS: Anion Gap 5 (5-15); BUN 12 mg/dL (7-18); BUN/Creat Ratio 19.3 RATIO (10-20); CPK Total, Creatine Kinase 27 U/L (26-192); Chloride 103 mmol/L (98-107); Creatinine, Serum 0.62 mg/dL (0.55-1.02); EST Glomerular Filtration Rate 100 mL/min (>60); Est Glom Filt Rate - Afr Amer 121 mL/min (>60); Glucose 111 mg/dL (74-106); Potassium 3.8 mmol/L (3.5-5.1); Sodium Level 135 mmol/L (136-145)
== END 2023-03-19 08:32 | disposition home or self-care (01) ==
LOC: MEDOUTP 08:31
PROVIDERS: PCP Family Medicine; Referring Provider Internal Medicine Critical Care Medicine; Visit Provider Internal Medicine Critical Care Medicine
DX: C34.90 Malignant neoplasm of unspecified part of unspecified bronchus or lung (principal); M79.606 Pain in leg, unspecified
CPT/HCPCS: 80048; 82550; 85379

== ENCOUNTER → 2023-03-19 | Outpatient (CLI) | payer MEDICARE, SELFPAY ==
--- NOTE | 2023-03-19 09:06 | VDLE_ITS ---
Reason For Study: PAIN RIGHT LEFT GSV is normal. GSV is normal. CFV is compressible, spontaneous, phasic, CFV is compressible, spontaneous, phasic, competent and demonstrates normal competent, and demonstrates normal augmentation. augmentation. FV is compressible, spontaneous, phasic, FV is compressible, spontaneous, phasic, competent and demonstrates normal competent and demonstrates normal augmentation. augmentation. POP V is compressible, spontaneous, phasic, POP V is compressible, spontaneous, phasic, competent and demonstrates normal competent and demonstrates normal augmentation. augmentation. T/P Trunk is compressible. T/P Trunk is compressible. PTV is compressible. PTV is compressible. RT PerV is compressible. LT PerV is compressible. Procedure NON-VASCULAR STRUCTURE measuring 3.25 x 1.37 This is a venous duplex using B-mode, color noted at MEDIAL POP FOSSA SPACE. flow and spectral Doppler. Exam performed in department. The exam was diagnostic. A preliminary report was called and/or faxed to Dr. Wells @ [phone] @ 9:45 am. VL/Venous Duplex US - Saad Extrem Interpretation Summary Deep veins of the bilateral lower extremities are patent and compressible segme ntally. There is no evidence of bilateral lower extremity deep vein thrombosis. The bilateral great saphenous veins appear patent and compressible segmentally. Non-vascular structure measuring 3.25 x 1.37 noted at medial popliteal fossa Ordering Physician: Miguel Ángel Wells Referring Physician: Leidy Beyer Performed By: Adelita Bermudez, IMTIAZ, RVT
== END | disposition home or self-care (01) ==
LOC: CVS 09:06
PROVIDERS: PCP Family Medicine; Referring Provider Internal Medicine Critical Care Medicine; Visit Provider Internal Medicine Critical Care Medicine
DX: R04.2 Hemoptysis (principal); C34.90 Malignant neoplasm of unspecified part of unspecified bronchus or lung; M79.606 Pain in leg, unspecified
CPT/HCPCS: 93970

== ENCOUNTER → 2023-05-02 | Outpatient (CLI) | payer MEDICARE, SELFPAY ==
[2023-05-02 13:15] LABS: Free T3 1.7 pg/mL (2.18-3.98); T4 Free Direct 1.34 ng/dL (0.76-1.46); Thyroid Stim Hormone (TSH) 9.07 uIU/mL (0.358-3.74)
== END | disposition home or self-care (01) ==
LOC: BFHLAB 10:23
PROVIDERS: PCP Family Medicine; Visit Provider Family Medicine
DX: E05.00 Thyrotoxicosis with diffuse goiter without thyrotoxic crisis or storm (principal); E03.9 Hypothyroidism, unspecified
CPT/HCPCS: 36415; 84439; 84443; 84481

== ENCOUNTER 2023-06-13 11:28 | Day surgery (SDC) | payer MEDICARE, SELFPAY ==
--- OUTSIDE RECORDS SUMMARY | 2023-06-13 11:56 | XMS RPT_ITS | CCD ---
Author Name Unknown Address [address] [place] [id number] Organization [facility] Care Team Providers Care Radiology Physician Name Role Phone MUMTAZ PERALTA Primary Care Unavailable SOLOMON HUBBARD Referring Unavailable Michael Roberson DO Primary Care Provider MICHAEL ROBERSON Primary Care Unavailable YOLETTE FERNÁNDEZ Referring Unavailable MICHAEL ROBERSON Primary Care Unavailable MICHAEL ROBERSON Primary Care Unavailable Allergies Allergy Classification Reported Allergen(s) Allergy Type Date of Onset Reaction(s) Facility (3 sources) Cheese; Translations: [CHEESE (SEE VEGETABLE GUM)] Propensity to adverse reactions 12-26-2004 [facility] Work Phone: (3 sources) Chocolate; Translations: [CHOCOLATE] Propensity to adverse reactions 12-26-2004 [facility] Work Phone: (3 sources) Penicillins; Translations: [PENICILLINS] Propensity to adverse reactions 12-26-2004 [facility] Work Phone: Medications Current Medications Medication Drug Class(es) Dates Sig (Normalized) Sig (Original) doxycycline hyclate 100 mg oral tablet (2 sources) Tetracycline-clas s Drug Start: 10-30-2022 End: 11-09-2022 take 1 tablet by mouth twice daily doxycycline (VIBRA-TABS) 100 mg tablet Indications: Cough present for greater than 3 weeks , SOB (shortness of breath) Take 1 tablet by mouth twice daily for 10 days. 20 tablet 0 10/30/2022 11/09/2022 Active Completed/Discontinued Medications Medication Drug Class(es) Dates Sig (Normalized) Sig (Original) [id number] 200 actuat albuterol 0.09 mg/actuat metered dose inhaler (2 sources) beta2-Adrenergic Agonist Start: 10-30-2022 take 2 puff(s) by inhalation every six hours as needed for wheezing albuterol HFA (PROVENTIL HFA, VENTOLIN HFA) 90 mcg/actuation inhaler Indications: SOB (shortness of breath) Inhale 2 Puffs as instructed every 6 hours as needed for wheezing/shortnes s of breath. 6.7 g 0 10/30/2022 Active Problems Problem Classification Problem Date Documented Da te Episodic/Chronic Other circulatory disease (1 source) Elevated blood-pressure reading without diagnosis of hypertension; Translations: [Elevated blood-pressure reading, without diagnosis of hypertension] Episodic Other lower respiratory disease (1 source) Persistent cough; Translations: [Cough present for greater than 3 weeks] Episodic Other lower respiratory disease (1 source) Dyspnea; Translations: [Shortness of breath] Episodic Other lower respiratory disease (1 source) Shortness of breath; Translations: [SOB (shortness of breath)] Onset: 10-31-2022 Episodic Other upper respiratory infections (1 source) Viral upper respiratory tract infection; Translations: [Acute upper respiratory infection, unspecified] Episodic Results Test Name Value Interpretation Reference Range Facil ity Vital Signs Date Time Vital Sign Value Performing Clinician Haley bradford 10-30-2022 11:46-0400 Body temperature 97.59 [degF] [facility] Work Phone: [facility] 10-30-2022 11:46-0400 Body weight 67.41 kg [facility] Work Phone: [facility] 10-30-2022 11:46-0400 Diastolic blood pressure 110 mm[Hg] [facility] Work Phone: [facility] 10-30-2022 11:46-0400 Heart rate 80 /min [facility] Work Phone: [facility] 10-30-2022 11:46-0400 Respiratory rate 21 /min [facility] Work Phone: [facility] 10-30-2022 11:46-0400 SaO2% (BldA) [Mass fraction] 99 % [facility] Work Phone: [facility] 10-30-2022 11:46-0400 Systolic blood pressure 150 mm[Hg] [facility] Work Phone: [facility] Encounters Encounter Date Encounter Type Care Provider Facility Start: 10-31-2022 Telephone encounter Yas James BOBBI Work Phone: [facility] Plan of Treatment Date Care Activity Detail Author Start: 02-02-2023 Influenza vaccination INFLUENZ A (Season Ended) [facility] Start: 10-30-2022 End: 11-13-2022 Radiologic exam chest 2 views XR CHEST 2V FRONTAL/LAT Radiology STAT SOB (shortness of breath) Expected: 10/30/2022, Expires: 11/13/2022 [facility] Work Phone: Payers Date Payer Category Payer Unknown [employer] BLUE [employer] HMO [id number] 2021-Present [phone] [address] [place] [address] O [id number] 2021 Unknown [id number] 2020 Unknown [id number] 2020 Medicare [id number] 1950 Unknown [id number] Social History Date Type Detail Facility Start: 10-30-2022 [facility] History of tobacco use Current smoker [facility] History of tobacco use Cigarette Smoker [facility] History of tobacco use Passive smoker [facility] Start: 10-30-2022 Tobacco use and exposure Smoke less tobacco non-user [facility] Start: 1950 Sex Assigned At Not on file [facility] Progress note 10-31-2022 Note Date & Type Note Facility 10-31-2022 Note HNO ID: [id number] Author: Sandra Herrera, RT(R) Service: Nuclear Medicine Author Type: Technologist Type: Progress Notes Filed: 10/31/2022 9:37 AM Note Text: Radiology Service Progress Note PATIENT NAME: Amol Mckeon DATE OF SERVICE: October 31, 2022 TIME: 9:30 AM PATIENT IDENTITY VERIFICATION COMPLETED USING TWO (2) IDENTIFIERS: Name and Date of confirmed by patient verbally. FALL SCREENING: Has the patient had 2 falls in the last year or 1 fall with injury or currently using an Ambulatory Assistive Device (Walker, Cane, Wheelchair, Crutches, etc.)? No PATIENT GENDER DATA: Female. status: : No status: NO. PATIENT RELEVANT IMPLANT DATA REVIEWED: Not Applicable RADIOLOGY DEPARTMENT: General X-ray: Exam(s) Completed: Chest X-Ray PERIPHERAL IV DATA: Not applicable SIGNED BY: RT Rohit(R) October 31, 2022 9:30 AM [facility] Note 10-31-2022 Telephone Encounter - Yas Wen APRN.CNP - 10/31/2022 10:30 AM EDT Note Date & Type Note Facility 10-31-2022 Miscellaneous Notes Formattin g of this note might be different from the original. Called patient to notify her of her results and that she needed to follow-up with PCP as soon as possible for chest CT. Attempted to call the primary care provider's office several times with no success. Did send them a copy of her chart for review. Patient is aware and will attempt to get a hold of the office. documented in this encounter [facility] Progress note 10-30-2022 Note Date & Type Note Facility 10-30-2022 Note HNO ID: [id number] Author: Yolette Fernández APRN.CHRISSIE Service: ? Author Type: Nurse Practitioner Type: Progress Notes Filed: 10/30/2022 12:18 PM Note Text: This note was created using [employer]. Subjective Amol Mckeon is a 72 year old female. HPI by patient: Amol Mckeon is a 72 year old presenting to the office with the complaint of viral symptoms. Started approximately 1 month ago with a cough. Bronchial cough. Associated symptoms include diarrhea but then states this is intermittent for awhile , states it depends on what she eats. Vomited on Sunday then moved in to diarrhea. Now is softer stool, not runny. Has shortness of breath. Temp was 101.7F on Sunday, body aches- states from lack of rest, and fatigue. States some congestion with the mask but not at home. States her blood pressure is normal for her- goes according to the graves - her thyroid? Covid Immunization Dates Overdue - COVID-19 VACCINE (3 - Booster for Pfizer series) Overdue since 07/16/2021 05/21/2021 Imm Admin: COVID-19 original vaccine, age 12+ yr, monovalent (PFIZER-BIONTECH - PURPLE TOP) 04/30/2021 Imm Admin: COVID-19 original vaccine, age 12+ yr, monovalent (PFIZER-BIONTECH - PURPLE TOP) Took 1 home test, I know this isn't covid . Sick contacts: none. Smoking history/second hand smoke: none. OTC imodium and delsym yesterday. No antibiotic use in the last 60 days. ALLERGIES Cheese (See Vegetab* Chocolate Penicillins Swelling Comment:SWELLING AT INJECTION SITE No family history on file. 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 HENT: Negative. Negative for congestion (not at home), ear pain and sore throat. Eyes: Negative. Respiratory: Positive for cough and shortness of breath. Negative for wheezing. Cardiovascular: Negative. Gastrointestinal: Negative. Endocrine: Negative. Genitourinary: Negative. Musculoskeletal: Positive for myalgias. Skin: Negative. Neurological: Negative. Hematological: Negative. Objective BP 150/110 Pulse 80 Temp 36.4 ?C (97.6 ?F) Resp 21 Wt 67.4 kg (148 lb 9.6 oz) SpO2 99% Physical Exam Vitals reviewed. Constitutional: General: She is not in acute distress. Appearance: She is not ill-appearing, toxic-appearing or diaphoretic. HENT: Head: Normocephalic and atraumatic. Right Ear: Tympanic membrane, ear canal and external ear normal. Left Ear: Tympanic membrane, ear canal and external ear normal. Nose: Nose normal. Right Sinus: No maxillary sinus tenderness or frontal sinus tenderness. Left Sinus: No maxillary sinus tenderness or frontal sinus tenderness. Mouth/Throat: Mouth: Mucous membranes are moist. Pharynx: Oropharynx is clear. No oropharyngeal exudate or posterior oropharyngeal erythema. Cardiovascular: Rate and Rhythm: Normal rate and regular rhythm. Pulmonary: Effort: Pulmonary effort is normal. Breath sounds: Normal breath sounds. Lymphadenopathy: Head: Right side of head: No submandibular or tonsillar adenopathy. Left side of head: No submandibular or tonsillar adenopathy. Cervical: No cervical adenopathy. Psychiatric: Behavior: Behavior is cooperative. Assessment and Plan (J06.9) Viral upper respiratory tract infection with cough (primary encounter diagnosis) Plan: benzonatate (TESSALON PERLES) 100 mg capsule (R03.0) Elevated blood-pressure reading without diagnosis of hypertension (R05.8) Cough present for greater than 3 weeks Plan: doxycycline (VIBRA-TABS) 100 mg tablet, benzonatate (TESSALON PERLES) 100 mg capsule (R06.02) SOB (shortness of breath) Plan: doxycycline (VIBRA-TABS) 100 mg tablet, albuterol HFA (PROVENTIL HFA, VENTOLIN HFA) 90 mcg/actuation inhaler, Inhalational Spacing Device, XR CHEST 2V FRONTAL/LAT Assessment is negative. Did not offer covid testing- took a home test and also states I know this isn't flu . Patient is upset she is only getting a note for today. Advised that out of [facility] I typically can give the day seen off or longer if indicated. There is no sore throat, not swabbing for strep, no covid test pending, and has no fever in office. Is okay to go to work tomorrow. Cough for 1 month, new fever 2 days ago. Unable to get image today. Will treat with doxycycline, albuterol, and tessalon. Doxycycline twice a day for 7 days: -drink a full glass of water with each dose (more content not included)... [facility] Instructions 10-30-2022 Patient Instructions Note Date & Type Note Facility 10-30-2022 Instructions Yolette Fernández APRN.FURNACE ATTENDANT - 10/30/2022 12:04 PM EDT (J06.9) Viral upper respiratory tract infection with cough (primary encounter diagnosis) Plan: benzonatate (TESSALON PERLES) 100 mg capsule (R03.0) Elevated blood-pressure reading without diagnosis of hypertension (R05.8) Cough present for greater than 3 weeks Plan: doxycycline (VIBRA-TABS) 100 mg tablet, benzonatate (TESSALON PERLES) 100 mg capsule (R06.02) SOB (shortness of breath) Plan: doxycycline (VIBRA-TABS) 100 mg tablet, albuterol HFA (PROVENTIL HFA, VENTOLIN HFA) 90 mcg/actuation inhaler, Inhalational Spacing Device, XR CHEST 2V FRONTAL/LAT Education on viral vs bacterial infections. Most viral infections will last 10 days, sometimes 14. It is possible to have back to back viral infections. An antibiotic will not treat a virus. Cough for 1 month, new fever 2 days ago. Unable to get image today. Will treat with doxycycline, albuterol, and tessalon. Doxycycline twice a day for 7 days: -drink a full glass of water with each dose - do not take with milk/dairy products - avoid sun exposure - it raises your risk for burn - if you take calcium or iron supplements, do not take them while you take this, or take them at a different time of day - stay upright for 30 minutes after taking this medicine Chest xray is active for 2 weeks with [facility], get this done tomorrow. Will call with result. -Drink lots of fluids and get plenty of rest. -Vaporizers, cool mist humidifiers, warm showers, and warm fluids help open respiratory and sinus passages. Clean humidifiers daily. -OTC tylenol as directed on the bottle. -Saline nasal spray as needed. Flonase twice daily can help reduce inflammation through the sinus cavities. -Cough/deep breathing education, promote clearing of the airways and good lung expansion. -Make follow up with primary care for monitoring and resolution in symptoms. -Signs that warrant an ER evaluation: Sudden change/worsening in condition, lethargy, signs of dehydration, fever greater than 102 F that is not responding to Tylenol or ibuprofen (Motrin, Advil), drooling, difficulty swallowing, difficulty breathing, shortness of breath, chest pain, evidence of airway compromise (tripod position, neck extension, retractions), seizures, changes in mental status, or other concerns. documented in this encounter [facility] History of Present illness Narrative 10-30-2022 Yolette Fernández APRN.CHRISSIE - 10/30/2022 11:52 AM EDT Note Date & Type Note Facility 10-30-2022 History of Presen t illness Narrative This note was created using [employer]. Subjective Amol Mckeon is a 72 year old female. HPI by patient: Amol Mckeon is a 72 year old presenting to the office with the complaint of viral symptoms. Started approximately 1 month ago with a cough. Bronchial cough. Associated symptoms include diarrhea but then states this is intermittent for awhile , states it depends on what she eats. Vomited on Sunday then moved in to diarrhea. Now is softer stool, not runny. Has shortness of breath. Temp was 101.7F on Sunday, body aches- states from lack of rest, and fatigue. States some congestion with the mask but not at home. States her blood pressure is normal for her- goes according to the graves - her thyroid? Covid Immunization Dates Overdue - COVID-19 VACCINE (3 - Booster for Pfizer series) Overdue since 07/16/2021 05/21/2021 Imm Admin: COVID-19 original vaccine, age 12+ yr, monovalent (PFIZER-BIONTECH - PURPLE TOP) 04/30/2021 Imm Admin: COVID-19 original vaccine, age 12+ yr, monovalent (PFIZER-BIONTECH - PURPLE TOP) Took 1 home test, I know this isn't covid . Sick contacts: none. Smoking history/second hand smoke: none. OTC imodium and delsym yesterday. No antibiotic use in the last 60 days. ALLERGIES Cheese (See Vegetab* Chocolate Penicillins Swelling Comment:SWELLING AT INJECTION SITE No family history on file. 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 HENT: Negative. Negative for congestion (not at home), ear pain and sore throat. Eyes: Negative. Respiratory: Positive for cough and shortness of breath. Negative for wheezing. Cardiovascular: Negative. Gastrointestinal: Negative. Endocrine: Negative. Genitourinary: Negative. Musculoskeletal: Positive for myalgias. Skin: Negative. Neurological: Negative. Hematological: Negative. Objective BP 150/110 Pulse 80 Temp 36.4 C (97.6 F) Resp 21 Wt 67.4 kg (148 lb 9.6 oz) SpO2 99% Physical Exam Vitals reviewed. Constitutional: General: She is not in acute distress. Appearance: She is not ill-appearing, toxic-appearing or diaphoretic. HENT: Head: Normocephalic and atraumatic. Right Ear: Tympanic membrane, ear canal and external ear normal. Left Ear: Tympanic membrane, ear canal and external ear normal. Nose: Nose normal. Right Sinus: No maxillary sinus tenderness or frontal sinus tenderness. Left Sinus: No maxillary sinus tenderness or frontal sinus tenderness. Mouth/Throat: Mouth: Mucous membranes are moist. Pharynx: Oropharynx is clear. No oropharyngeal exudate or posterior oropharyngeal erythema. Cardiovascular: Rate and Rhythm: Normal rate and regular rhythm. Pulmonary: Effort: Pulmonary effort is normal. Breath sounds: Normal breath sounds. Lymphadenopathy: Head: Right side of head: No submandibular or tonsillar adenopathy. Left side of head: No submandibular or tonsillar adenopathy. Cervical: No cervical adenopathy. Psychiatric: Behavior: Behavior is cooperative. Assessment and Plan (J06.9) Viral upper respiratory tract infection with cough (primary encounter diagnosis) Plan: benzonatate (TESSALON PERLES) 100 mg capsule (R03.0) Elevated blood-pressure reading without diagnosis of hypertension (R05.8) Cough present for greater than 3 weeks Plan: doxycycline (VIBRA-TABS) 100 mg tablet, benzonatate (TESSALON PERLES) 100 mg capsule (R06.02) SOB (shortness of breath) Plan: doxycycline (VIBRA-TABS) 100 mg tablet, albuterol HFA (PROVENTIL HFA, VENTOLIN HFA) 90 mcg/actuation inhaler, Inhalational Spacing Device, XR CHEST 2V FRONTAL/LAT Assessment is negative. Did not offer covid testing- took a home test and also states I know this isn't flu . Patient is upset she is only getting a note for today. Advised that out of [facility] I typically can give the day seen off or longer if indicated. There is no sore throat, not swabbing for strep, no covid test pending, and has no fever in office. Is okay to go to work tomorrow. Cough for 1 month, new fever 2 days ago. Unable to get image today. Will treat with doxycycline, albuterol, and tessalon. Doxycycline twice a day for 7 days: -drink a full glass of water with each dose - do not take with milk/dairy products - avoid sun exposure - it raises your risk for burn - if you take calcium or iron supplements, do not take them while you take this, or take them at a different time of day - stay upright for 30 minutes after taking this medicine Chest xray is active for 2 weeks with [facility], get this done tomorrow. Will call with result. -Drink lots of fluids and get plenty of rest. -Vaporizers, cool mist humidifiers, warm showers, and warm fluids help open respiratory and sinus passages. Clean humidifiers daily. -OTC tylenol as directed on the bottle. -Saline nasal spray as needed. Flonase twice daily can help reduce inflammation through the sinus cavities. -Cough/deep breathing education, promote clearing of the airways and good lung expansion. -Make follow up with primary care for monitoring and resolution in symptoms. Discussed that she may need more workup than what is offered in [facility]. -Signs that warrant an ER evaluation: Sudden change/worsening in condition, lethargy, signs of dehydration, fever greater than 102 F that is not responding to Tylenol or ibuprofen (Motrin, Advil), drooling, difficulty swallowing, difficulty breathing, shortness of breath, chest pain, evidence of airway compromise (tripod position, neck extension, retractions), seizures, changes in mental status, or other concerns. The patient will pursue further outpatient evaluation with the primary care physician or another Urgent Care/[facility] as outlined in the after visit summary. The patient is agreeable to this plan of care and follow-up instructions have been explained in detail. The patient has received these instructions in written format and have expressed an understanding of the after visit summary. Medical Decision Making: Level: 4 - Moderate I spent a total of 20 minutes on the date of the service which included preparing to see the patient, ecul-po-cygs patient care, completing clinical documentation, obtaining and/or reviewing separately obtained history, performing a medically appropriate examination, counseling and educating the patient/family/caregiver, and ordering medications, tests, or procedures. This patient encounter involved the screening or treatment of novel coronavirus infection (COVID-19). documented in this encounter [facility] Progress note 07-05-2022 Note Date & Type Note Facility 07-05-2022 Note HNO ID: [id number] Author: Oneil Solomon MD Service: ? Author Type: Physician Type: Progress Notes Filed: 07/05/2022 3:06 PM Note Text: Patient presents with: Diarrhea: chills x 5 days HPI: Feeling sick for 6 days. Home COVID negative. The diarrhea is decreased and mostly having tenesmus now with little output. She has eaten little other than crackers since last week. Positive symptoms: diarrhea, chills, abdominal cramping today, fatigue, Negative symptoms: Change in chronic cough, Shortness of breath, Fever, Body Aches, Headache, Nausea, Vomiting, blood in stool, no recent travel, OTC: imodium. Avoiding food to reduce BMs. on cefadroxil in April for sepsis. MEDICATIONS: Current Outpatient Medications Medication Sig levothyroxine (SYNTHROID) 100 mcg tablet levothyroxine (SYNTHROID) 50 mcg tablet clonazePAM (KLONOPIN) 1 mg tablet aspirin, enteric coated (ASPIRIN, ENTERIC COATED) 81 mg EC tablet Take 81 mg by mouth once daily. No current facility-administered medications for this visit. ALLERGIES: ALLERGIES Allergen Reactions Cheese (See Vegetab* Chocolate Penicillins Swelling SWELLING AT INJECTION SITE VITALS: BP 128/72 Pulse 82 Temp 36.1 ?C (96.9 ?F) Resp 16 Wt 65.8 kg (145 lb) SpO2 96% PHYSICAL EXAM: GEN: Pleasant, in no acute distress. HEENT: PERRL, EOMI, conjunctiva clear Throat: moist mucous membranes, no erythema, no exudate Neck: supple, no thyromegaly, no lymphadenopathy HEART: regular rate and rhythm, no murmurs LUNGS: clear to auscultation, no wheezes or crackles, no increased WOB ABD: Soft, non-distended, non-tender, no masses ASSESSMENT/PLAN: 1. Diarrhea of presumed infectious origin - ICD9: 009.3, ICD10: R19.7 Hydration with fluids encouraged. Resume normal solid intake as tolerated. Limit antidiarrheal OTC to occasional use when required. Follow up in the ER with signs of dehydration, increasing abdominal pain, high fever, or blood in vomit or stool. Provided work note for today and tomorrow. Oneil Solomon MD [facility] Evaluation note Note Date & Type Note Facility documented in this encounter [facility] Summary Purpose Family History No Family History Records FoundNo Family History Records Found Advance Directives No Advanced Directives Records FoundNo Advanced Directives Records Found Additional Source Comments INFORMATION SOURCE (unrecogn ized section and content) DATE CREATED AUTHOR AUTHOR'S ORGANIZ ATION 11/14/2022 [facility] Source Comments (unrecognize d section and content) In the event this informatio n is protected by the Federal Confidentiality of Alcohol and Drug Abuse Patient Records regulations: The Federal rules restrict any use of the information to criminally investigate or prosecute any alcohol or drug abuse patient.[facility] the event this information is protected by the Federal Confidentiality of Alcohol and Drug Abuse Patient Records regulations: The Federal rules restrict any use of the information to criminally investigate or prosecute any alcohol or drug abuse patient.[facility] Reason for Visit (unrecogniz ed section and content) Reason Comments Results Care Teams (unrecognized sec tion and content) Radiology Physician Relationship Specialty Start Date End Date Michael Roberson DO [address] [facility] [place] [address] PCP - General Family Medicine 07/05/22 FOR RECORDS PERTAINING TO PATIENTS WHO ARE OR HAVE BEEN ENROLLED IN A CHEMICAL DEPENDENCY/SUBSTANCEABUSE PROGRAM, SOME INFORMATION MAY BE OMITTED. This clinical summary was aggregated from multiple sources. Caution should be exercised in using it in the provision of clinical care. This summary normalizes information from multiple sources, and as a consequence, information in this document may materially change the coding, format and clinical context of patient data. In addition, data may be omitted in some cases. CLINICAL DECISIONS SHOULD BE BASED ON THE PRIMARY CLINICAL RECORDS. [facility]. provides no warranty or guarantee of the accuracy or completeness of information in this document.
[2023-06-13 12:42] VITALS: BP 136/85; PULSE 108; RESP 17; TEMP 36.9; O2SAT 88; BMI 20.1
--- NOTE | 2023-06-13 13:00 | COLBX_PTH ---
PATHOLOGY RESULTS PATIENT: AMOL RUBIO LOC: EN U#:[id number] AGE/SX: 72/F ROOM: RE06/13/[address]: Dr. Roberto Guidry MD : 1950 BED: DIS: 06/13/2023 SPEC #: [id number] RECD: 06/13/23 18:19 STATUS: NIYAH MARSHALL #: [id number] EYAL: 06/13/23 13:[address]: Roberto Guidry DEPT: SURGICAL PATHOLOGY RECD BY: Yeni Turner ENTERED: 06/14/23 07:07 SP TYPE: COLON BX OTHR DR: Dr. Leidy Beyer DO Tissues: Rectum, NOS Rectum, NOS Procedures: Surgery Specimen Level IV HEADER OPERATION: Colonoscopy with biopsy PRE-OP DIAGNOSIS: Abnormal PET scan of colon TISSUE SUBMITTED: A - Rectal mucosa biopsy, B - Rectal biopsy, rule out anal papilla MICROSCOPIC DIAGNOSIS A. Rectal mucosa, biopsy: A minute fragment of benign squamous mucosa. B. Rectal biopsy: Fragments of benign squamous mucosa. LUCRECIA:elsa 06/15/2023 COMMENT Clinical correlation and appropriate follow up are necessary. MICROSCOPIC DESCRIPTION Slides are reviewed. GROSS DESCRIPTION A - Received in fixative is one container labeled with the patient's name and designated rectal mucosa biopsy. The specimen consists of a minute fragment of villalba soft tissue measuring 0.2 x 0.1 x 0.1 cm. The specimen is totally submitted in one cassette. B - Received in fixative is one container labeled with the patient's name and designated rectal biopsy. The specimen consists of multiple minute fragments of villalba soft tissue that in aggregate measure 0.3 x 0.2 x 0.1 cm. The specimen is totally submitted in one cassette. / LUCRECIA:elsa 06/14/2023 TC:5 CPT: 23155 x2
--- NOTE | 2023-06-13 13:25 | PCM.HP.BLA ---
History and Physical Date of Admission: 06/13/23 Date of Service: 05/23/23 MR#: [id number] Acct: [id number] Name: AMOL MCKEON Rep #: [id number] : 1950 Provider: Dr. 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 Required: No Is patient in pain?: No Allergies cheese Allergy (Verified 05/23/23 09:15) Hiveschocolate flavor Allergy (Verified 05/23/23 09:15) Rash Medications clonazepam 1 mg tablet 2 mg PO QHS ANXIETY 12/28/20 [History Confirmed 05/23/23] aspirin 81 mg tablet,delayed release 81 mg PO DAILY HEART HEALTH 11/06/22 [History Confirmed 05/23/23] calcium carbonate 500 mg-vitamin D3 3.125 mcg (125 unit) tablet 1 tab PO DAILY SUPPLEMENT 11/06/22 [History Confirmed 05/23/23] tiotropium 2.5 mcg-olodaterol 2.5 mcg/actuation mist for inhalation (Stiolto Respimat) 2 puff inhalation DAILY COPD #4 grams 11/29/22 [Rx Confirmed 05/23/23] levothyroxine 100 mcg tablet 100 mcg PO DAILY 12/28/22 [History Confirmed 05/23/23] lidocaine-prilocaine 2.5 %-2.5 % topical cream 1 applic topical ONCE PRN port access 30 days #30 grams 12/28/22 [Rx Confirmed 05/23/23] ondansetron 8 mg disintegrating tablet 8 mg PO Q8H PRN nausea and vomiting #30 tabs 12/28/22 [Rx Confirmed 05/23/23] loperamide 15 ml PO Q8H PRN PRN diarrhea 01/15/23 [History Confirmed 05/23/23] Hair Prosthesis #1 ea 03/13/23 [Rx Confirmed 05/23/23] benzonatate 200 mg capsule 200 mg PO TID #30 caps 03/26/23 [Rx Confirmed 05/23/23] diclofenac sodium 1 % topical gel 2 g topical ONCE 04/03/23 [History Confirmed 05/23/23] potassium gluconate 600 mg (99 mg) tablet 600 mg PO DAILY 05/01/23 [History Confirmed 05/23/23] tizanidine 4 mg tablet 4 mg PO QHS PRN 05/01/23 [History Confirmed 05/23/23] PFSH Medical History Cat bite of left forearm with infection Cataract Chronic respiratory failure with hypoxia Encounter for chemotherapy management Essential hypertension Former smoker Graves disease HLD (hyperlipidemia) Hypothyroidism Loss of hearing Primary cancer of bronchus of right lower lobe Regional lymph node metastasis present Restless leg syndrome Squamous cell carcinoma of lung, stage III Stage 2 moderate COPD by GOLD classification Tetanus toxoid vaccination administered at current visit TIA (transient ischemic attack) Wears dentures Surgical History History of appendectomy History of hysterectomy Family History Mother HypertensionFather Hypertension Social History household members: none Smoking Status: Former smoker alcohol intake: never substance use type: does not use HPI HPI HPI: Patient is a 72-year-old female who is known to me from a prior right chest port placement 01/09/2023. She confirms that she has done well through her chemotherapy and radiation and is now considered in remission. She shares that she was offered immunotherapy but is declining as she does not perceive it to be a meaningful enough difference in her risk for relapse. She confirms that she is aware of her recent pet imaging that showed some increased FDG activity in her rectum. She shares that she is suspicious that this may be related to hemorrhoids. She shares that she had very significant hemorrhoids during her and this was responsive to Preparation H. She shares that she has had actually no issues since that time until she was in the midst of her chemotherapy. Once again she tried Preparation H and she confirms that she has been better for the past 2 weeks. Overall she describes her bowel movements as soft (they were little pellets during chemotherapy) and occurring 1 time per day. She also notes that they are light brown and she has not noticed any blood. She also denies any straining or any caliber change. She reports that her last colonoscopy was in [address] Hernandez and that she was given a 10-year follow-up on the account of a little polyp. Her biggest memory from this experience was that she awoken during the sedation and was talking with Dr. Stauffer throughout the procedure. Patient has now family history of colon cancer, inflammatory bowel disease, or diverticulitis. The patient's weight is not stable and she confesses to significant weight loss through her treatment for the lung cancer but is trying to regain some of this with. The patient is not prescribed anticoagulants/blood thinners. Patient does not have a significant history of GERD/heartburn. ROS General General: Yes weight change, appetite and fatigue; No colon cancer, breast cancer or weakness HEENT HEENT: Yes eye surgery; No difficulty swallowing, eye injury, swollen glands or hoarseness Endo Endocrine: Yes thyroid disease; No diabetes mellitus, thyroid cancer, Hair loss, heat intolerance or cold intolerance Skin Skin: No rash or changing moles Breast Breast: No left breast lump, right breast lump, nipple discharge, breast pain, abnormal mammogram, abnormal US or breast enlargement Musc Musculoskeletal: No back problems, arthritis, rheumatoid arthritis, gout or joint pain Cardio Cardiovascular: Yes atrial fibrillation; No murmur, pacemaker, heart disease, high blood pressure, heart attack, heart stent, palpitations, shortness of breat with exertion or chest pain Psych Psychiatric: No depression, anxiety or hearing voices Resp Respiratory: No shortness of breath, No sleep apnea, No cough, No COPD, No asthma, No emphysema and No wheezing Gastro Gastrointestinal: No abdominal pain, No nausea or vomiting, No diarrhea, Yes constipation, No blood in stool, No acid reflux, Yes hemorrhoids, No ulcers, No gallbladder problem and No black,tarry stools Brady Hematologic: No blood thinners, No blood disorders, No bleeding, No anemia and No blood clots Neuro Neurologic: No system reviewed and no additional complaints, except as documented, No as per HPI, No abnormal gait, No abnormal hearing, No abnormal movements, No abnormal speech, No behavioral changes, No burning sensations, No confusion, No convulsions, No disequilibrium, No dizziness, No localized weakness, No frequent falls, No headache(s), No lack of coordination, No loss of vision, No memory loss, No numbness, No other visual disturbances, No radicular pain, No restless legs, No sensory deficit, No syncope, No tingling, No tremor(s), No weakness and No other Exam Const General: cooperative and comfortable Orientation: alert, awake and oriented x3 GI Other: Rectal exam deferred per patient's preference and acceptance of recommendation for diagnostic colonoscopy Assessment and Plan Assessment and Plan (1) Abnormal PET scan of colon: Status: Acute Comment: This is a 72-year-old female currently in remission for lung cancer who did show some PET avidity within the rectum during routine surveillance imaging. She describes some active hemorrhoidal disease during this image acquisition. Still, her last colonoscopy was 8 years ago and given her recent history I agree with the belief that she requires a dedicated, diagnostic study to confirm there is nothing more within the rectum besides hemorrhoidal inflammation. Mrs. Mckeon readily accepts the recommendation to proceed diagnostic colonoscopy and we spent part of the visit discussing bowel prep instructions. We will look to schedule this at his first mutually agreeable date Plan: Plan will be to complete colonoscopy on first mutually agreeable under local MAC. Pre-procedure prep discussed and paper instructions provided. Patient is also made aware that she will need to have a delivery motorcycle driver with her the day of the procedure. I have examined the patient and the H&P has been reviewed. There are no clinical changes since date of exam. Patient reports that she completed prep without issue and that her output is now clear. She denies any recurrence of her hemorrhoid activity. She is without complaint today other than that she is hungry. Post procedure expectations and processing times were reviewed. Neither patient nor her daughter have any further questions. Will proceed to endoscopy suite for diagnostic colonoscopy as discussed in detail above.
[2023-06-13 15:08] VITALS: BP 111/71; BP 136/85; PULSE 98; RESP 16; TEMP 36.6; O2SAT 92
[2023-06-13 15:10] VITALS: BP 110/77; BP 136/85; PULSE 95; RESP 16; O2SAT 91
--- NOTE | 2023-06-13 15:11 | OP.COLON_ITS ---
Patient Name: Farida Mckeon Procedure Date: 06/13/2023 2:05 PM Date of : 1950 Age: 72 Procedure: Colonoscopy Indications: Abnormal PET scan of the GI tract Providers: Roberto Guidry MD Medicines: See the Anesthesia note for documentation of the administered medications Patient Profile: Last Colonoscopy: several years ago. Complications: No immediate complications. Estimated blood loss: Minimal. Procedure: Pre-Anesthesia Assessment: - The heart rate, respiratory rate, oxygen saturations, blood pressure, adequacy of pulmonary ventilation, and response to care were monitored throughout the procedure. After I obtained informed consent, the scope was passed under direct vision. Throughout the procedure, the patient's blood pressure, pulse, and oxygen saturations were monitored continuously. The colonoscope was introduced through the anus and advanced to the cecum, identified by the appendiceal orifice, ileocecal valve and palpation. The colonoscopy was somewhat difficult due to a tortuous colon. Successful completion of the procedure was aided by withdrawing and reinserting the scope. The patient tolerated the procedure well. The quality of the bowel preparation was adequate. Scope In: 2:19:50 PM Scope Withdrawal Time 0 hours 21 minutes 18 seconds Scope Out: 3:00:31 PM Total Procedure Duration Time 0 hours 40 minutes 41 seconds Findings: Skin tags were found on perianal exam. flaccid tone, No biopsies or other specimens were collected for this exam. The ileocecal valve was mildly lipomatous. No biopsies or other specimens were collected for this exam. Multiple small-mouthed diverticula were found in the ascending colon. No biopsies or other specimens were collected for this exam. A localized area of mildly redundant mucosa was found in the rectum. Biopsies were taken with a cold forceps for histology. Estimated blood loss was minimal. Anal papilla(e) were hypertrophied. Biopsies were taken with a cold forceps for histology. Estimated blood loss was minimal. The exam was otherwise without abnormality. Impression: - Perianal skin tags found on perianal exam. - Lipomatous ileocecal valve. No specimens collected. - Diverticulosis in the ascending colon. No specimens collected. - Redundant mucosa in the rectum. Biopsied. - Anal papilla(e) were hypertrophied. Biopsied. - The examination was otherwise normal. Recommendation: - Discharge patient to home (via wheelchair). - High fiber diet today. - Continue present medications. - Await pathology results. - Repeat colonoscopy date to be determined after pending pathology results are reviewed for surveillance based on pathology results. - Telephone my office for pathology results in 1 week. Procedure Code(s): --- Professional --- 93617, Colonoscopy, flexible; with biopsy, single or multiple Diagnosis Code(s): --- Professional --- K63.89, Other specified diseases of intestine K62.89, Other specified diseases of anus and rectum K64.4, Residual hemorrhoidal skin tags K57.30, Diverticulosis of large intestine without perforation or abscess without bleeding R93.3, Abnormal findings on diagnostic imaging of other parts of digestive tract CPT copyright 2021 [employer]. All rights reserved. The codes documented in this report are preliminary and upon certified medical coder review may be revised to meet current compliance requirements. Roberto Guidry MD 06/13/2023 3:10:46 PM This report has been signed electronically. Number of Addenda: 0 Note Initiated On: 06/13/2023 2:05 PM
--- NOTE | 2023-06-13 15:11 | OP.CCLET_ITS ---
06/13/2023 Leidy Beyer [address] [place] [address] Re : Colonoscopy procedure for Farida Mckeon Dear Dr. Beyer This procedure was performed on Tuesday, June 13, 2023. My impressions and recommendations are as follows: Impressions : - Perianal skin tags found on perianal exam. - Lipomatous ileocecal valve. No specimens collected. - Diverticulosis in the ascending colon. No specimens collected. - Redundant mucosa in the rectum. Biopsied. - Anal papilla(e) were hypertrophied. Biopsied. - The examination was otherwise normal. Recommendations : - Discharge patient to home (via wheelchair). - High fiber diet today. - Continue present medications. - Await pathology results. - Repeat colonoscopy date to be determined after pending pathology results are reviewed for surveillance based on pathology results. - Telephone my office for pathology results in 1 week. My findings are described in the full procedure note, which is enclosed. If I can be of further assistance, please feel free to contact me at Doctor phone number(s): , Work: . Sincerely, Roberto Guidry MD 06/13/2023 3:10:46 PM This report has been signed electronically.
[2023-06-13 15:15] VITALS: BP 105/71; BP 136/85; PULSE 94; RESP 16; O2SAT 91
[2023-06-13 15:20] VITALS: BP 124/77; BP 136/85; PULSE 96; RESP 18; TEMP 36.7; O2SAT 89
[2023-06-13] MEDS: 0.9 % NaCl (Sterile) Posiflush 10 mL IV (15:37)
[2023-06-13 15:54] VITALS: BP 136/85
== END 2023-06-13 15:55 | disposition home or self-care (01) ==
LOC: EN 11:28 → AC 11:30
PROVIDERS: PCP Family Medicine; Referring Provider Family Medicine; Visit Provider Surgery
PROC: 0DJD8ZZ Inspection of Lower Intestinal Tract, Via Natural or Artificial Opening Endoscopic (ICD-10-PCS; CPT 45378; principal; 2023-06-13 12:55)
DX: R93.3 Abnormal findings on diagnostic imaging of other parts of digestive tract (principal); C34.90 Malignant neoplasm of unspecified part of unspecified bronchus or lung; J44.9 Chronic obstructive pulmonary disease, unspecified; E78.5 Hyperlipidemia, unspecified; I10 Essential (primary) hypertension; Z87.891 Personal history of nicotine dependence; K63.89 Other specified diseases of intestine; K62.89 Other specified diseases of anus and rectum; K64.4 Residual hemorrhoidal skin tags; K57.30 Diverticulosis of large intestine without perforation or abscess without bleeding; Z86.73 Personal history of transient ischemic attack (TIA), and cerebral infarction without residual deficits; E03.9 Hypothyroidism, unspecified
CPT/HCPCS: 45380; 88305; J7120; A4216; J2405

== ENCOUNTER → 2023-07-10 | Outpatient (CLI) | payer MEDICARE, SELFPAY ==
--- NOTE | 2023-07-10 12:28 | CT_ITS ---
STUDY: CT CHEST WITH CONTRAST REASON FOR EXAM: Female, 72 years old. Treated stage III lung cancer -- compare to prior RADIATION DOSAGE (If Supplied By Facility): CTDIvol = ( 7.25 ) mGy, DLP = ( 163.72 ) mGycm TECHNIQUE: Transaxial imaging was performed following intravenous administration of IV 100mL Isovue-370. Multiplanar coronal and sagittal images were reformatted. Individualized dose optimization techniques were used for this CT. COMPARISON: Comparison is made with prior study March 06, 2023. FINDINGS: CHEST A right-sided portacatheter is seen with the tip in the superior vena cava. Stable thickening of the right minor fissure. Small right pleural effusion. Bronchiectasis and bullous formation in the right hemithorax worse in the right upper lobe and right lower lobe suggestive of post radiation fibrosis. The previously seen spiculated nodule in the right middle lobe anterior to the right cardiac border has almost completely resolved. The previously seen nodular densities in the right middle lobe have almost completely resolved as well. Small pericardial effusion. There are calcifications of the coronary arteries. Normal mediastinum. Normal hilar regions. Normal unenhanced pulmonary arteries. Normal aorta arch and descending thoracic aorta. There are multi-level degenerative changes of the thoracic spine. There is no demonstrated abnormality of the visualized upper abdomen. 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 Small right pleural effusion. Small pericardial effusion. Electronically Signed: Abdifatah Oneal MD at 14:33 EST ,
[2023-07-10 13:07] LABS: CREATININE FINGERSTICK < 1.0 mg/dL (0.55-1.02); EGFR FINGERSTICK > 60.0000 mL/min (>60)
[2023-07-10] MEDS: 0.9% Saline Lock 10 ML Syringe IV (13:10)
--- OUTSIDE RECORDS SUMMARY | 2023-07-10 16:45 | XMS RPT_ITS | CCD ---
Author Name Unknown Address [address] [place] [address] Organization [facility] Care Team Providers Care Marble Polisher Hand Name Role Phone MUMTAZ PERALTA Primary Care Unavailable SOLOMON HUBBARD Referring Unavailable Michael Roberson DO Primary Care Provider MICHAEL ROBERSON Primary Care Unavailable YOLETTE FERNÁNDEZ Referring Unavailable MICHAEL ROBERSON Primary Care Unavailable MICHAEL ROBERSON Primary Care Unavailable Allergies Allergy Classification Reported Allergen(s) Allergy Type Date of Onset Reaction(s) Facility (3 sources) Cheese; Translations: [CHEESE (SEE VEGETABLE GUM)] Propensity to adverse reactions 12-26-2004 [facility] Work Phone: (3 sources) Chocolate; Translations: [CHOCOLATE] Propensity to adverse reactions 12-26-2004 [facility] Work Phone: (3 sources) Penicillins; Translations: [PENICILLINS] Propensity to adverse reactions 12-26-2004 [facility] Work Phone: Medications Current Medications Medication [...] Drug Class(es) Dates Sig (Normalized) Sig (Original) [id number] 200 actuat albuterol 0.09 mg/actuat metered dose [...] temperature 97.59 [degF] [facility] Work Phone: [facility] 10-30-2022 11:46-0400 Body weight 67.41 kg [facility] Work Phone: [facility] 10-30-2022 11:46-0400 Diastolic blood pressure 110 mm[Hg] [facility] Work Phone: [facility] 10-30-2022 11:46-0400 Heart rate 80 /min [facility] Work Phone: [facility] 10-30-2022 11:46-0400 Respiratory rate 21 /min [facility] Work Phone: [facility] 10-30-2022 11:46-0400 SaO2% (BldA) [Mass fraction] 99 % [facility] Work Phone: [facility] 10-30-2022 11:46-0400 Systolic blood pressure 150 mm[Hg] [facility] Work Phone: [facility] Encounters Encounter Date Encounter Type Care Provider Facility Start: 10-31-2022 Telephone encounter Yas James BOBBI Work Phone: [facility] Plan of Treatment Date Care Activity Detail Author Start: 02-02-2023 Influenza vaccination INFLUENZ A (Season Ended) [facility] Start: 10-30-2022 End: 11-13-2022 Radiologic exam chest 2 views XR CHEST 2V FRONTAL/LAT Radiology STAT SOB (shortness of breath) Expected: 10/30/2022, Expires: 11/13/2022 [facility] Work Phone: Payers Date Payer Category Payer Unknown [employer] S AND BLUE SHIELD [employer] HMO [id number] 2021-Present [phone] [address] [place] [address] O [id number] 2021 Unknown [id number] 2020 Unknown [id number] 2020 Medicare [id number] 1950 Unknown [id number] Social History Date Type Detail Facility Start: [facility]-30-2022 [facility] History of tobacco use Current smoker [facility] History of tobacco use Cigarette Smoker [facility] History of tobacco use Passive smoker [facility] Start: 10-30-2022 Tobacco use and exposure Smoke less tobacco non-user [facility] Start: 1950 Sex Assigned At Not on file C [facility] Progress note 10-31-2022 Note Date & Type Note Facility 10-31-2022 Note HNO ID: [id number] Author: Sandra Herrera, RT(R) Service: Nuclear Medicine [...] of the office. documented in this encounter [facility] Progress note 10-30-2022 Note Date & Type Note Facility 10-30-2022 Note HNO ID: [id number] Author: Yolette Fernández APRN.CHRISSIE Service: ? Author Type: Nurse Practitioner Type: Progress Notes Filed: 10/30/2022 12:18 PM Note Text: This note was created using Inspiratoriter. Subjective Amol Mckeno is a 72 year old female. HPI [...] Type Note Facility 10-30-2022 Instructions Yolette Fernández APRN.LEAK DETECTION ENGINEER - 10/30/2022 12:04 PM EDT (J06.9) Viral [...] or other concerns. documented in this encounter [facility] History of Present illness Narrative 10-30-2022 Yolette Fernández APRN.CHRISSIE - 10/30/2022 11:52 AM EDT Note Date & Type Note Facility 10-30-2022 History of Presen t illness Narrative This note was created using [employer]he[employer]. Subjective Amol Mckeon is a 72 year [...] which included preparing to see the patient, [id number] patient care, completing clinical documentation, obtaining and/or reviewing separately obtained history, performing a medically appropriate examination, counseling and educating the patient/family/caregiver, and ordering medications, tests, or procedures. This patient encounter involved the screening or treatment of novel coronavirus infection (COVID-19). documented in this encounter [facility] Progress note 07-05-2022 Note Date & Type Note Facility 07-05-2022 Note HNO ID: [id number] Author: Oneil Solomon MD Service: ? Author [...] Type Note Facility documented in this encounter [facility] Summary Purpose Family History No Family History [...] or prosecute any alcohol or drug abuse patient.[facility] the event this information is protected by the Federal Confidentiality of Alcohol and Drug Abuse Patient Records regulations: The Federal rules restrict any use of the information to criminally investigate or prosecute any alcohol or drug abuse patient.[facility] Reason for Visit (unrecogniz ed section and content) Reason Comments Results Care Teams (unrecognized sec tion and content) Marble Polisher Hand Relationship Specialty Start Date End Date Michael Roberson DO [address] [facility] [place] [address] PCP - General Family Medicine 07/05/22 FOR [...] BE BASED ON THE PRIMARY CLINICAL RECORDS. [facility]. provides no warranty or guarantee of the accuracy or completeness of information in this document.
== END | disposition home or self-care (01) ==
LOC: CT 12:27
PROVIDERS: PCP Family Medicine; Referring Provider Student in an Organized Health Care Education/Training Program; Visit Provider Student in an Organized Health Care Education/Training Program
DX: C34.90 Malignant neoplasm of unspecified part of unspecified bronchus or lung (principal)
CPT/HCPCS: 71260; Q9967; A4216

== ENCOUNTER → 2023-09-13 | Outpatient (CLI) | payer MEDICARE, SELFPAY ==
[2023-09-13 15:20] LABS: Absolute Lymphocyte Count 1.26 X10^3/uL (0.83-4.51); Absolute Neutrophil Count 4.7 X10^3/uL (2.0-7.7); Basophil# 0.03 X10^3/uL; Basophil% 0.4 % (0-1); Eosinophils% 1.5 % (0-5); Hematocrit 42.1 % (37-47); Hemoglobin 13.4 g/dL (12.0-15.0); Lymphocyte # 1.26 X10^3/ul (0.83-4.51); Lymphocyte % 18.7 % (19-41); Mean Corp Hgb Conc 31.8 g/dL (32-36); Mean Corpuscular Hgb 28.5 pg (27.0-32.0); Mean Corpuscular Volume 89.6 fL (81-99); Mean Platelet Vol. 9.9 fl (6.2-12.0); Monocyte# 0.66 X10^3/uL; Monocyte% 9.8 % (0-10); NRBC Flagged by Analyzer 0 % (0-5); Neutrophil # 4.68 X10^3/uL (2.7-7.7); Neutrophil % 69.5 % (47-70); Platelet Count 309 K/mm3 (150-450); RBC Distribution Width CV 13.7 % (11.6-14.6); RBC Distribution Width SD 44.9 fl (35.1-43.9); White Blood Count 6.7 K/mm3 (4.4-11.0)
[2023-09-13 16:23] LABS: ALB/GLOB Ratio 0.8 RATIO (0.9-2.4); AST(SGOT) 18 U/L (15-37); Alanine Aminotransfer ALT/SGPT 11 U/L (13-56); Albumin, Serum 3.4 g/dL (3.2-5.0); Alkaline Phosphatase 66 U/L (45-117); Anion Gap 5 (5-15); BUN 5 mg/dL (7-18); BUN/Creat Ratio 7.7 RATIO (10-20); Calcium,Total 9.7 mg/dL (8.5-10.1); Chloride 103 mmol/L (98-107); Creatinine, Serum 0.65 mg/dL (0.55-1.02); EST Glomerular Filtration Rate 96 mL/min (>60); Est Glom Filt Rate - Afr Amer 116 mL/min (>60); Free T3 2.3 pg/mL (2.18-3.98); Globulin 4.4 g/dL (2.2-4.2); Glucose 113 mg/dL (74-106); Potassium 3.6 mmol/L (3.5-5.1); Protein, Total 7.8 g/dL (6.4-8.2); Sodium Level 135 mmol/L (136-145); T4 Free Direct 1.52 ng/dL (0.76-1.46); T4 Total, Thyroxin 14.7 ug/dL (4.8-13.9); Thyroid Stim Hormone (TSH) 2.29 uIU/mL (0.358-3.74)
[2023-09-13 17:22] LABS: T3 Total - Triiodothyronine 1.37 ng/mL (0.6-1.81)
[2023-09-19 03:46] LABS: T3 Reverse 24.2 ng/dL (9.2-24.1)
== END | disposition home or self-care (01) ==
LOC: BFHLAB 10:42
PROVIDERS: PCP Family Medicine; Visit Provider Family Medicine
DX: E03.9 Hypothyroidism, unspecified (principal); E05.00 Thyrotoxicosis with diffuse goiter without thyrotoxic crisis or storm; Z51.81 Encounter for therapeutic drug level monitoring
CPT/HCPCS: 36415; 80053; 84436; 84439; 84443; 84480; 84481; 84482; 85025

== ENCOUNTER 2023-12-16 16:10 | Inpatient (IN) | payer MEDICARE, MEDICAID, SELFPAY ==
[2023-12-16 16:12] VITALS: BP 160/102; PULSE 127; RESP 22; TEMP 36.4; O2SAT 94; BMI 18.5
--- NOTE | 2023-12-16 16:26 | EKG12_ITS ---
Test Reason : GENERAL Blood Pressure : / mmHG Vent. Rate : 118 BPM Atrial Rate : 118 BPM P-R Int : 156 ms QRS Dur : 086 ms QT Int : 336 ms P-R-T Axes : 056 054 051 degrees QTc Int : 470 ms Sinus tachycardia Otherwise normal ECG Confirmed by WARREN FRANKS, COLLIN ([id number]), desk editor JUANITA EWING ([id number]) on 12/19/2023 9:49:57 AM Referred By: Confirmed By:KENNY KELLEY MD
--- NOTE | 2023-12-16 16:28 | EX.ED.DYSGE1 ---
HPI History of Present Illness Chief Complaint: Other, Pain/Inj Detail of Chief Complaint: Right-sided pain Informant: patient Onset/Context/Timing Onset: Days Context: Gradual Onset Timing: Waxes and wanes Current Severity: Moderate Maximum Severity: Moderate Narrative Narrative: Patient presents secondary to pain to the right side of her body. She complains of pain through her right chest and abdomen as well as her right arm and down into her right thigh. She states she had the same symptoms when she was diagnosed with lung cancer. She is currently in remission. She states she also had similar pain just before they moved her port. After her port was removed it did resolve. She does note some shortness of breath and wheezing. She denies any urinary symptoms. No skin rashes. No recent falls or injury. 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, stage III Loss of hearing Cataract Wears dentures Essential hypertension TIA (transient ischemic attack) Restless leg syndrome Graves disease HLD (hyperlipidemia) Hypothyroidism Former smoker Home Medications ?Medication ?Instructions ?Recorded ?Last Taken ?Type clonazepam 1 mg tablet 2 mg PO QHS ANXIETY 12/28/20 12/15/23 History calcium carbonate 500 mg-vitamin 1 tab PO DAILY SUPPLEMENT 11/06/22 12/16/23 History D3 3.125 mcg (125 unit) tablet levothyroxine 100 mcg tablet 125 mcg PO DAILY 12/28/22 12/16/23 History Hair Prosthesis #1 ea 03/13/23 Unknown Rx potassium gluconate 600 mg (99 mg) 600 mg PO DAILY 05/01/23 12/14/23 History tablet multivitamin with minerals-folic 1 tab PO DAILY 12/16/23 12/16/23 History acid 80 mcg chewable tablet (Centrum Adult 50 Plus) tizanidine 4 mg tablet 4 mg PO BID PRN PRN muscle 12/16/23 Unknown History spasticity Allergy/AdvReac Type Severity Reaction Status Date / Time Penicillins Allergy Unknown Swelling Verified 12/16/23 16:11 cheese Allergy Hives Verified 10/09/23 07:57 chocolate flavor Allergy Rash Verified 10/09/23 07:57 Family History Mother Hypertension Father Hypertension Surgical History History of hysterectomy History of appendectomy Social History household members: none Smoking Status: Former smoker alcohol intake: never substance use type: does not use ROS ROS ED Constitutional Constitutional ED: Denies chills or fever(s) Eyes Eyes: Denies discharge from eye(s) ENT ENT ED: Denies discharge from eye(s), rhinorrhea or sore throat Cardiovascular Cardiovascular: Reports chest pain; Denies palpitations Respiratory/Chest Respiratory/Chest: Reports dyspnea; Denies cough Gastrointestinal Gastrointestinal: Reports abdominal pain; Denies diarrhea, nausea or vomiting Genitourinary Genitourinary ED: Denies difficulty urinating or dysuria Musculoskeletal Musculoskeletal: Reports back pain and extremity pain Integumentary Denies Abrasions or rash Neurologic Neurologic: Denies headache(s) or weakness Psychiatric Psychiatric: Denies anxiety or depression Allergic/Immunologic Allergic/Immunologic ED: Denies lip swelling or urticaria EXAM Physical Exam Const Vital Signs: 12/16/23 16:12 12/16/23 16:25 12/16/23 18:11 Temperature 97.6 F L Temperature Source Temporal Pulse Rate 127 H 72 Respiratory Rate 22 H 16 Respiratory Effort Normal Non-Labored Respiratory Pattern Normal Blood Pressure 160/102 H 130/68 H Blood Pressure Mean 121 88 Pulse Ox 94 95 Oxygen Delivery Method Room Air Positive well nourished and well developed General Appearance ED: well developed HEENT Reports moist mucous membranes Eyes EOMs intact bilaterally Chest Wall inspection of chest normal and palpation of chest normal Resp clear to auscultation bilaterally Resp Narrative: Mild tachypnea. Cardio Rate: tachycardic GI GI Narrative: Abdomen soft with no focal tenderness. Hypoactive but present bowel sounds noted. Back/Spine no CVA tenderness Extremity normal to inspection Neuro oriented x3 and no sensory deficits noted Motor Exam: strength 5/5 throughout Psych Mood & Affect: anxious Skin no rashes or lesions noted MDM MDM MDM Narrative Medical decision making narrative: Patient placed on cardiac catheterization technologist. EKG obtained to evaluate for cardiac arrhythmia/ischemia. IV line established. Labwork obtained to evaluate for leukocytosis, anemia, and electrolyte derangement. Urinalysis obtained to evaluate for infection/hematuria. Patient will need CT scan of the flank and chest. I will await lab results and D-dimer results prior to ordering. Patient is given a dose of fentanyl and Zofran along with IV fluids for pain control. History & Record Review Discussion w/independent historian: Patient Additional record(s) reviewed:: Prior labs Lab Data Attestation: I reviewed the patient's lab results. Labs: Laboratory Results - last 24 hr 12/16/23 12/16/23 16:35 16:45 WBC 6.7 RBC 4.79 Hgb 14.0 Hct 42.5 MCV 88.7 MCH 29.2 MCHC 32.9 RDW Std Deviation 42.5 RDW Coeff of Ruthie 13.1 Plt Count 217 MPV 9.3 Immature Gran % (Auto) 0.300 Neut % (Auto) 68.5 Lymph % (Auto) 20.1 [place] % (Auto) 9.6 Eos % (Auto) 0.9 Baso % (Auto) 0.6 Absolute Neuts (auto) 4.6 Absolute Lymphs (auto) 1.34 Nucleated RBC % 0 D-Dimer Quant (PE/DVT) 0.91 H* Sodium 138 Potassium 3.6 Chloride 104 Carbon Dioxide 28.0 Anion Gap 6 BUN 11 Creatinine 0.71 Estim Creat Clear Calc 50.61 Est GFR (MDRD) Af Amer 104 Est GFR (MDRD) Non-Af 86 BUN/Creatinine Ratio 15.4 Glucose 104 Calcium 9.7 Total Bilirubin 1.10 H Direct Bilirubin 0.20 AST 18 ALT 13 Alkaline Phosphatase 70 Troponin I High Sens 128 H* Total Protein 7.7 Albumin 3.7 Globulin 4.0 Lipase 20 TSH 0.18 L Urine Color Yellow Urine Clarity Clear Urine pH 6.5 Ur Specific Lyle 1.010 Urine Protein Negative Urine Glucose (UA) Normal Urine Ketones Negative Urine Occult Blood 25 H Urine Nitrite Positive H Urine Bilirubin Negative Urine Urobilinogen Normal Ur Leukocyte Esterase 500 H Urine RBC 0-5 SEEN Urine WBC 10-25 SEEN Ur Squamous Epith Cells 0 SEEN Urine Bacteria 2+ Urine Mucus 0 SEEN Radiography Chest X-Ray - ED: 1 View, Read by ED Physician and - (Significant scarring to the right lung. Chronic changes.) Diagnostic Testing: Clinical Impression(s) from Imaging Studies Chest X-Ray 12/16/23 16:48 IMPRESSION: Bilateral pneumonia. Right pleural effusion. Electronically Signed: Mando Genao MD at 17:06 EDT , Abdomen/Pelvis CT 12/16/23 17:32 IMPRESSION: (NOT LISTED IN ORDER OF SIGNIFICANCE) Moderate right pleural effusion. Right lower lobe infiltrate. Other findings as above. Electronically Signed: Mando Genao MD at 19:12 EDT , Chest CTA 12/16/23 17:32 IMPRESSION: 1. No demonstrated pulmonary embolism or arterial dissection. 2. There is a diffuse right pneumonia with likely right middle lobe atelectatic collapse. 3. Moderate right pleural effusion. Electronically Signed: Madno Genao MD at 19:06 EDT , EKG Initial EKG: Attestation: I personally reviewed and interpreted this EKG as follows: Interpretation: Sinus Tachycardia (Sinus tachycardia at 118. No obvious ST change.) Treatment and Re-Evaluation :: CBC was a white count of 6.7 with normal differential. Hemoglobin is 14.0. Chemistry studies are unremarkable with normal renal function. TSH is low at 0.18. LFTs are unremarkable. Troponin is elevated at 128. Urinalysis is positive for nitrites with 10-25 white cells and 2+ bacteria. EKG is sinus tachycardia with no obvious ischemia. Patient is sent for CTA of her chest to rule out pulmonary embolism as well as a CT of the abdomen pelvis to evaluate for possible pyelonephritis given her right-sided pain and UTI. CTA of the chest reveals no evidence of PE or dissection. There is diffuse right sided pneumonia likely right middle lobe atelectatic collapse. There is a moderate right pleural effusion. Patient does have some chronic scarring but this does appear worse when compared to prior study from September. CT scan of the abdomen pelvis reveals the pleural effusion as noted in the chest CT, but no other acute findings appreciated. Patient is ordered blood and urine cultures. She is given a dose of IV Levaquin for both pneumonia and urine. I will have nursing staff draw a repeat troponin as well as a lactic acid. I will speak with hospitalist regarding admission. Of note, patient states that she wishes to take her home medications instead of having the hospital dispense her medications as they do charge for them. I will discuss this with the hospitalist. Discharge Plan Triage Chief Complaint: Other, Pain/Inj ED Provider: Misti Miller Dx/Rx/DC Orders Clinical Impression: Pneumonia, Pleural effusion, UTI (urinary tract infection), Elevated troponin, Low TSH level Prescriptions: No Action levothyroxine 100 mcg tablet 125 mcg PO DAILY potassium gluconate 600 mg (99 mg) tablet 600 mg PO DAILY clonazepam 1 mg tablet 2 mg PO QHS calcium carbonate-vitamin D3 500 mg-3.125 mcg (125 unit) Tablet 1 tab PO DAILY Centrum Adult 50 Plus 80 mcg tablet,chewable 1 tab PO DAILY tizanidine 4 mg tablet 4 mg PO BID PRN PRN (Reason: muscle spasticity) (DME) Hair Prosthesis See Rx Instructions .Route .MEDSUPPLY Qty: 1 0RF Rx Instructions: As directed Primary Care Provider: Leidy Beyer Referrals: Leidy Beyer DO [Primary Care Provider] - Print Language: Dutch Disposition Disposition: Acute Care Hospital [facility]
[2023-12-16 16:42] LABS: Mucous, Urine 0 SEEN /hpf (<or=2+); Squamous Epithelial Cells - UA 0 SEEN /hpf (5-10)
[2023-12-16] MEDS: 0.9% Normal Saline (1000mL) 1,000 ML 150 ML IV (16:43)
[2023-12-16] MEDS: fentaNYL 100 MCG/2 ML Ampul 25 MCG IV (16:44)
[2023-12-16] MEDS: Ondansetron 4 MG/2 ML Vial IV (16:44)
--- NOTE | 2023-12-16 16:48 | RAD_ITS ---
STUDY: XR Chest 1 View 12/16/2023 4:46 PM REASON FOR EXAM: Female, 73 years old. HX of lung ca, in remission, wheezing, right sided pain COMPARISON: None TECHNIQUE: XR Chest 1 View FINDINGS: There is a right pleural effusion. Diffuse right infiltrate. Scattered infiltrates in the periphery of the left lung. Pulmonary emphysema. Pulmonary fibrosis. Normal heart size. There is right shift of the mediastinum. Normal ayaka. Prominent appearing increased interstitial lung markings. Normal visualized pulmonary arteries. There is atherosclerotic calcification of the aortic arch with tortuosity. There are diffuse degenerative changes of the visualized thoracic spine. There is degenerative osteoarthritis of the bilateral shoulders. There are no acute findings of the upper abdomen. RAD/Chest 1 View (Portable) IMPRESSION: Bilateral pneumonia. Right pleural effusion. Electronically Signed: Mando Genao MD at 17:06 EDT ,
[2023-12-16 16:49] LABS: Color, Urine Yellow (Yellow); Glucose, Dipstick Normal (Normal); Ketone-Dipstick Negative (Negative); Leukocyte Esterase-Dipstick 500 /ul (Negative); Nitrite-Dipstick Positive (Negative); Occult Blood-Urine 25 /ul (Negative); Protein-Dipstick Negative (Negative); Urine Bilirubin Dipstick Negative (Negative); Urine Clarity Clear (Clear); Urine Urobilinogen Normal (Normal); Urine pH 6.5 (5.0 - 8.0)
--- NOTE | 2023-12-16 16:53 | NURSING ---
12/16/23@[facility]- called pts daughter (poa) at pts request and left vm letting her know pt was at [facility] ER.
[2023-12-16 16:55] LABS: Absolute Lymphocyte Count 1.34 X10^3/uL (0.83-4.51); Absolute Neutrophil Count 4.6 X10^3/uL (2.0-7.7); Basophil# 0.04 X10^3/uL; Basophil% 0.6 % (0-1); Eosinophil# 0.06 X10^3/uL; Eosinophils% 0.9 % (0-5); Hematocrit 42.5 % (37-47); Lymphocyte # 1.34 X10^3/ul (0.83-4.51); Lymphocyte % 20.1 % (19-41); Mean Corp Hgb Conc 32.9 g/dL (32-36); Mean Corpuscular Hgb 29.2 pg (27.0-32.0); Mean Corpuscular Volume 88.7 fL (81-99); Mean Platelet Vol. 9.3 fl (6.2-12.0); Monocyte# 0.64 X10^3/uL; Monocyte% 9.6 % (0-10); NRBC Flagged by Analyzer 0 % (0-5); Neutrophil # 4.58 X10^3/uL (2.7-7.7); Neutrophil % 68.5 % (47-70); Platelet Count 217 K/mm3 (150-450); RBC Distribution Width CV 13.1 % (11.6-14.6); RBC Distribution Width SD 42.5 fl (35.1-43.9); Red Blood Count 4.79 M/mm3 (4.2-5.4); White Blood Count 6.7 K/mm3 (4.4-11.0)
[2023-12-16 16:57] LABS: Bacteria 2+ /hpf (None Seen); Red Blood Cells-Urine 0-5 SEEN /hpf (0-5); White Blood Cells 10-25 SEEN /hpf (0-5)
[2023-12-16 17:11] LABS: D-Dimer Quantitative (DVT/PE) 0.91 FEU/ug/m (0.27-0.49)
[2023-12-16 17:29] LABS: AST(SGOT) 18 U/L (15-37); Alanine Aminotransfer ALT/SGPT 13 U/L (13-56); Albumin, Serum 3.7 g/dL (3.2-5.0); Alkaline Phosphatase 70 U/L (45-117); Anion Gap 6 (5-15); BUN 11 mg/dL (7-18); BUN/Creat Ratio 15.4 RATIO (10-20); Calcium,Total 9.7 mg/dL (8.5-10.1); Chloride 104 mmol/L (98-107); Creatinine, Serum 0.71 mg/dL (0.55-1.02); EST Glomerular Filtration Rate 86 mL/min (>60); Est Glom Filt Rate - Afr Amer 104 mL/min (>60); Estimated Creatinine Clearance 50.61 ml/min; Glucose 104 mg/dL (74-106); Lipase 20 U/L (13-75); Potassium 3.6 mmol/L (3.5-5.1); Protein, Total 7.7 g/dL (6.4-8.2); Sodium Level 138 mmol/L (136-145); Thyroid Stim Hormone (TSH) 0.18 uIU/mL (0.358-3.74); Troponin-I HS 128 pg/mL (3.0-54.0)
--- NOTE | 2023-12-16 17:32 | CT_ITS ---
EXAM: CT ANGIOGRAPHY CHEST WITHOUT AND WITH INTRAVENOUS CONTRAST CLINICAL INDICATION: pulmonary embolism TECHNIQUE: Helically acquired angiography images were obtained of the chest without and with intravenous contrast. This CT exam was performed using one or more of the following dose reduction techniques: automated exposure control, adjustment of the mA and/or kV according to patient size, and/or use of iterative reconstruction technique. MIP reconstructed images were created and reviewed. CONTRAST: IV 75mL Isovue-370 RADIATION DOSE: CTDIvol = 8.27 mGy, DLP = 596.37 mGy-cm COMPARISON: 2.6.24 FINDINGS: PULMONARY ARTERIES: Unremarkable. No demonstrated pulmonary embolism or arterial dissection. AORTA: There is atherosclerotic calcification of the aortic arch with tortuosity and elongation of the aortic arch and descending thoracic aorta. Normal in caliber. No evidence of dissection. GREAT VESSELS OF AORTIC ARCH: Unremarkable. Normal in caliber. No evidence of dissection. LUNGS AND PLEURAL SPACES: There is a diffuse right pneumonia with likely right middle lobe atelectatic collapse. Moderate right pleural effusion. Multiple blebs and bullae laterally. Larger blebs and bullae on the right. No mass. HEART: There are calcifications of the coronary arteries. Heart size is normal. No pericardial effusion. MEDIASTINUM: Shift of the mediastinum to the right side. No mediastinal or hilar adenopathy. Esophagus is unremarkable. No hiatal hernia. THYROID: Unremarkable. No thyroid lesions. BONES/JOINTS: There are degenerative changes of the shoulders. There are multi-level degenerative changes of the thoracic spine. No suspicious lytic or blastic abnormality. OTHER FINDINGS: Post-processing of the images was performed, with axial imaging and 3D reconstruction. MIPS images were obtained. CT/CTA Chest W/WO Contrast IMPRESSION: 1. No demonstrated pulmonary embolism or arterial dissection. 2. There is a diffuse right pneumonia with likely right middle lobe atelectatic collapse. 3. Moderate right pleural effusion. Electronically Signed: Mando Genao MD at 19:06 EDT ,
--- NOTE | 2023-12-16 17:32 | CT_ITS ---
STUDY: CT Abdomen And Pelvis W/ Contrast Injection 12/16/2023 7:09 PM REASON FOR EXAM: Female, 73 years old. Abdominal pain right flank pain, UTI Individualized dose optimization techniques were used for this CT. COMPARISON: 03/06/2022 TECHNIQUE: CT Abdomen And Pelvis W/ Contrast Injection IV 75mL Isovue-370 FINDINGS: There are atherosclerotic calcifications of visualized coronary arteries. Moderate right pleural effusion. Right lower lobe infiltrate. Normal liver. Normal gallbladder and extrahepatic biliary system. Normal spleen. Normal pancreas. Normal bilateral adrenal glands. No acute findings of the right kidney. No acute findings of the left kidney. Normal visualized stomach. Normal small intestine. There are multiple colonic diverticula consistent with diverticulosis. There is non-visualization of the appendix. There are calcifications of the abdominal aorta. This is consistent for atherosclerotic disease. There is NO abdominal aortic aneurysm. Vascular workup can be obtained based on clinical correlation. Normal inferior vena cava. Subcentimeter mesenteric lymph nodes. Normal urinary bladder. There is absence of the uterus consistent with a prior hysterectomy. Normal abdominal wall. There are diffuse degenerative changes of the visualized lumbar spine. CT/Abdomen/Pelvis W IV Cont ONLY IMPRESSION: (NOT LISTED IN ORDER OF SIGNIFICANCE) Moderate right pleural effusion. Right lower lobe infiltrate. Other findings as above. Electronically Signed: Mando Genao MD at 19:12 EDT ,
[2023-12-16 18:11] VITALS: BP 130/68; PULSE 72; RESP 16; O2SAT 95
[2023-12-16 20:00] VITALS: BP 175/97; PULSE 98; RESP 20; O2SAT 92
[2023-12-16] MEDS: levoFLOXacin IV 750 MG in Empty Viaflex Q24 100 MG IV (20:21)
[2023-12-16 20:24] VITALS: BP 159/102; PULSE 96; RESP 18; TEMP 36.9; O2SAT 93
--- NOTE | 2023-12-16 20:34 | PCM.HP.STD ---
HPI - General General Date of Admission: 12/16/23 Date of Service: 12/16/23 Chief Complaint: R sided chest pain, dyspnea, cough. HPI Narrative The patient is a 73 y/o F w/ PMHx: HTN, HLD, COPD w/ Chronic Hypoxic Respiratory Failure, Former tobacco use, RLS, Anxiety, Hx TIA, Hx Graves disease s/p treatment with now Hypothyroidism, GERD w/ recent Oncology mention of esophagitis on PPI treatment, History Clinical stage IIIB (T4, N2, M0) non-small cell lung cancer squamous histology of the right lower lobe s/p chemotherapy and radiation treatment reported to be in remission who presents to the [facility] ED on 12/16/23 with history of onset of right-sided chest as well as upper abdomen, right upper extremity and right lateral flank discomfort described as painful, ranges from sharp stabbing and aching to throbbing, gradual onset over the last several days with at its worst discomfort rated 8-9 out of 10 in severity, currently upon evaluation down to 4-5 out of 10 in severity following ED pain medication, denies any increased severity with movement however she does report recent mildly increased cough with occasional sputum but no fevers or chills and ongoing dyspnea especially with activity and occasional wheezing but not necessarily above baseline prompting eventual ED evaluation. Patient denies any dysuria, increased urinary frequency above her chronic baseline, retention or foul-smelling urine. Workup in the ED included T97.6, heart rate 127, BP 160/102, respiratory rate 22, 94% on room air with most recent repeat vital signs T98.5, heart rate 96, BP 159/102, respiratory rate 18, 93% on room air, CBC with WC 6.7, hemoglobin 14, MCV 88.7, platelet 217 without marked shift, D-dimer 0.91, CMP with total bilirubin 1.10 otherwise unremarkable, TSH 0.18, troponin 128, chest x-ray with bilateral pneumonia, right-sided pleural effusion, CT abdomen and pelvis with moderate right pleural effusion, right lower lobe infiltrate, CTA chest with no evidence of PE or dissection, diffuse right pneumonia with likely right middle lobe atelectatic collapse and moderate right pleural effusion, EKG with sinus tachycardia with no acute evidence of ischemia. In the ED patient ministered maintenance IV fluids, fentanyl 25 mcg IV x 1, Levaquin 750 mg IV x 1, Zofran 4 mg IV x 1. PFSH Medical History Port-A-Cath in place Encounter for chemotherapy management Primary cancer of bronchus of right lower lobe Tetanus toxoid vaccination administered at current visit Cat bite of left forearm with infection Regional lymph node metastasis present Chronic respiratory failure with hypoxia Stage 2 moderate COPD by GOLD classification Squamous cell carcinoma of lung, stage III Loss of hearing Cataract Wears dentures Essential hypertension TIA (transient ischemic attack) Restless leg syndrome Graves disease HLD (hyperlipidemia) Hypothyroidism Former smoker Home Medications ?Medication ?Instructions ?Recorded ?Last Taken ?Type clonazepam 1 mg tablet 2 mg PO QHS ANXIETY 12/28/20 12/15/23 History calcium carbonate 500 mg-vitamin 1 tab PO DAILY SUPPLEMENT 11/06/22 12/16/23 History D3 3.125 mcg (125 unit) tablet levothyroxine 100 mcg tablet 125 mcg PO DAILY 12/28/22 12/16/23 History Hair Prosthesis #1 ea 03/13/23 Unknown Rx potassium gluconate 600 mg (99 mg) 600 mg PO DAILY 05/01/23 12/14/23 History tablet multivitamin with minerals-folic 1 tab PO DAILY 12/16/23 12/16/23 History acid 80 mcg chewable tablet (Centrum Adult 50 Plus) tizanidine 4 mg tablet 4 mg PO BID PRN PRN muscle 12/16/23 Unknown History spasticity Allergy/AdvReac Type Severity Reaction Status Date / Time Penicillins Allergy Unknown Swelling Verified 12/16/23 16:11 cheese Allergy Hives Verified 10/09/23 07:57 chocolate flavor Allergy Rash Verified 10/09/23 07:57 Family History Mother Hypertension Father Hypertension Surgical History History of hysterectomy History of appendectomy Social History household members: none Smoking Status: Former smoker alcohol intake: never substance use type: does not use ROS ROS Narrative Admission Review of Systems: CONSTITUTIONAL: No weight loss, fever, chills, + weakness or fatigue. HEENT: Eyes: No visual loss, blurred vision, double vision or yellow sclerae. Ears, Nose, Throat: No hearing loss, sneezing, congestion, runny nose or sore throat. SKIN: No rash or itching, lesions, wounds. CARDIOVASCULAR: + R sided chest pain. No palpitations, edema, orthopnea, syncopal events. RESPIRATORY: + Chronic shortness of breath, mildly increased cough with occasional increased sputum, occasional wheezing but not markedly increased. No hemoptysis. GASTROINTESTINAL: No anorexia, nausea, vomiting or diarrhea, abdominal pain, melena, BRBPR. GENITOURINARY: No dysuria, frequency, urgency or retention. NEUROLOGICAL: No headache, dizziness, syncope, paralysis, ataxia, numbness or tingling in the extremities, focal weakness, change in bowel or bladder control, seizure. MUSCULOSKELETAL: + muscle, back pain, joint pain or stiffness. HEMATOLOGIC: No anemia, bleeding or bruising. LYMPHATICS: No enlarged nodes. No history of splenectomy. PSYCHIATRIC: + history of depression and anxiety. ENDOCRINOLOGIC: No reports of sweating, cold or heat intolerance. No polyuria or polydipsia. ALLERGIES: + history of hives. Vital Signs Vital Signs Vital Signs: 12/16/23 16:12 12/16/23 16:25 12/16/23 18:11 Temperature 97.6 F L Temperature Source Temporal Pulse Rate 127 H 72 Respiratory Rate 22 H 16 Respiratory Effort Normal Non-Labored Respiratory Pattern Normal Blood Pressure 160/102 H 130/68 H Blood Pressure Mean 121 88 Pulse Ox 94 95 Oxygen Delivery Method Room Air 12/16/23 20:00 12/16/23 20:24 Temperature 98.5 F Temperature Source Pulse Rate 98 96 Respiratory Rate 20 H 18 Respiratory Effort Respiratory Pattern Blood Pressure 175/97 H 159/102 H Blood Pressure Mean 123 121 Pulse Ox 92 93 Oxygen Delivery Method Room Air Weight Weight: 111 lb 3.2 oz Body Mass Index (BMI) 18.5 Physical Exam Narrative Physical Examination: General: Awake, alert, oriented x 3 and cooperative, seated upright in the ED bed, notes R sided diffuse chest pain still an ache, rates it 4-5/10, improved. Skin: Normal color, normal turgor, no icterus, no cyanosis except occasional staged ecchymoses, abrasion. HEENT: AT/NC, EOMI, PERRLA, mildly dry MM, no carotid bruits or JVD noted. Lungs: Reduced, significantly more so right base, more pronounced posteriorly mid and inferiorly, appropriate effort currently, no tachypnea or evidence of any distress, currently no rales, rhonchi or wheezing. Heart: Tachycardic with regular rhythm; no gallop, rub audible. Abdomen: Soft, thin habitus, NTTP, ND, mildly hyperactive BS, no appreciated HSM. Extremities: No cyanosis, no clubbing, no marked peripheral edema. Neurological: Patient awake, alert, oriented as noted, cognitive function intact; pupils equally reactive to light and accommodation, cranial nerves grossly normal, moving all 4 extremities, no focal deficit, strength moderately globally decreased secondary to acute complaints. Psychiatric: Affect appears fatigued, mildly irritable but calm during evaluation, no acute evidence of depressive or anxiety feelings but does have underlying history. Results Lab / Micro Data 12/16/23 16:45 12/16/23 16:45 Labs: Laboratory Results - last 24 hr 12/16/23 16:35: Urine Color Yellow, Urine Clarity Clear, Urine pH 6.5, Ur Specific [place] 1.010, Urine Protein Negative, Urine Glucose (UA) Normal, Urine Ketones Negative, Urine Occult Blood 25 H, Urine Nitrite Positive H, Urine Bilirubin Negative, Urine Urobilinogen Normal, Ur Leukocyte Esterase 500 H, Urine RBC 0-5 SEEN, Urine WBC 10-25 SEEN, Ur Squamous Epith Cells 0 SEEN, Urine Bacteria 2+, Urine Mucus 0 SEEN 12/16/23 16:45: WBC 6.7, RBC 4.79, Hgb 14.0, Hct 42.5, MCV 88.7, MCH 29.2, MCHC 32.9, RDW Std Deviation 42.5, RDW Coeff of Ruthie 13.1, Plt Count 217, MPV 9.3, Immature Gran % (Auto) 0.300, Neut % (Auto) 68.5, Lymph % (Auto) 20.1, Laurel % (Auto) 9.6, Eos % (Auto) 0.9, Baso % (Auto) 0.6, Absolute Neuts (auto) 4.6, Absolute Lymphs (auto) 1.34, Nucleated RBC % 0, D-Dimer Quant (PE/DVT) 0.91 H*, Sodium 138, Potassium 3.6, Chloride 104, Carbon Dioxide 28.0, Anion Gap 6, BUN 11, Creatinine 0.71, Estim Creat Clear Calc 50.61, Est GFR (MDRD) Af Amer 104, Est GFR (MDRD) Non-Af 86, BUN/Creatinine Ratio 15.4, Glucose 104, Calcium 9.7, Total Bilirubin 1.10 H, Direct Bilirubin 0.20, AST 18, ALT 13, Alkaline Phosphatase 70, Troponin I High Sens 128 H*, Total Protein 7.7, Albumin 3.7, Globulin 4.0, Lipase 20, TSH 0.18 L Imaging Radiology Impression Chest X-Ray 12/16/23 16:48 IMPRESSION: Bilateral pneumonia. Right pleural effusion. Electronically Signed: Mando Genao MD at 17:06 EDT , Abdomen/Pelvis CT 12/16/23 17:32 IMPRESSION: (NOT LISTED IN ORDER OF SIGNIFICANCE) Moderate right pleural effusion. Right lower lobe infiltrate. Other findings as above. Electronically Signed: Mando Genao MD at 19:12 EDT , Chest CTA 12/16/23 17:32 IMPRESSION: 1. No demonstrated pulmonary embolism or arterial dissection. 2. There is a diffuse right pneumonia with likely right middle lobe atelectatic collapse. 3. Moderate right pleural effusion. Electronically Signed: Mando Genao MD at 19:06 EDT , Assessment & Plan Assessment/Plan (1) Elevated troponin: (2) Pneumonia: PLAN: Plan The patient is a 73 y/o F w/ PMHx: HTN, HLD, COPD w/ Chronic Hypoxic Respiratory Failure, Former tobacco use, RLS, Anxiety, Hx TIA, Hx Graves disease s/p treatment with now Hypothyroidism, GERD w/ recent Oncology mention of esophagitis on PPI treatment, History Clinical stage IIIB (T4, N2, M0) non-small cell lung cancer squamous histology of the right lower lobe s/p chemotherapy and radiation treatment reported to be in remission who presents to the [facility] ED on 12/16/23 with history of onset of right-sided chest as well as upper abdomen, right upper extremity and right lateral flank discomfort described as painful, ranges from sharp stabbing and aching to throbbing, gradual onset over the last several days with at its worst discomfort rated 8-9 out of 10 in severity, currently upon evaluation down to 4-5 out of 10 in severity following ED pain medication, denies any increased severity with movement however she does report recent mildly increased cough with occasional sputum but no fevers or chills and ongoing dyspnea especially with activity and occasional wheezing but not necessarily above baseline prompting eventual ED evaluation. #1. Right Sided Pneumonia with moderate effusion, complicated by #2 and #3 Hx R sided Lung CA s/p radiation/chemotherapy reported to be in remission in addition to questionable UTI as patient is asymptomatic but concerning UA: Will admit to PCU given #2, maintain on oxygen with wean as tolerated to room air although currently maintaining room air, continue ATC budesonide, PRN albuterol, maintained on IV Rocephin and Azithromycin, HOB, IS parameters w/ pending sputum cultures, full respiratory viral panel, procalcitonin and urine antigens. Despite CT findings patient with no elevated WBC or left shift, afebrile, no marked purulent cough. Patient will need follow-up imaging and assessment following treatment of pneumonia especially given underlying cancer. UA as noted mildly concerning, urine culture pending, on antibiotic therapy for concurrent possible pneumonia but again asymptomatic as far as urinary symptoms are concerned. #2. Indeterminate cardiac troponin, potentially demand with #1: EKG in ED sinus tachycardia with no acute evidence of ischemia, CXR w/ bilateral pneumonia with follow-up CTA chest with no evidence of PE or dissection, diffuse right pneumonia with likely right middle lobe atelectatic collapse and moderate right pleural effusion, right-sided pleural effusion, initial trop 128. Will maintain on a monitored bed to assure no acute myocardial infarction with serial cardiac enzymes and EKGs. Magnesium requested. FLP in AM to be cautious. Will initiate full-strength aspirin now and daily baby aspirin. Will maintain on chemoprophylactic dosing of Lovenox however if enzymes rise will transition to full dose versus heparin drip. Echocardiogram requested. Pending trending may consider cardiology involvement. #3. Hypothyroidism with abnormal TSH: Patient with history of Graves' disease status post radioactive iodine treatment, TSH 0.18, patient notes recent change of levothyroxine dosing, will obtain free T4 although given she will have only just begun a new regimen recently may need to continue and have repeat dosing outpatient especially in the acute situation. #4. History Clinical stage IIIB (T4, N2, M0) non-small cell lung cancer squamous histology of the right lower lobe: Patient most recent oncology visit noted 08/01/[address] Francisco, status post combined modality therapy with chemo specifically weekly CarboTaxol as well as radiation-02/2023 followed by 2 additional cycles of CarboTaxol treatments and 3-week intervals 03/2023 with restaging with PET/CT 04/2023 with no evidence of any metastatic disease at that time, plan for ongoing adjuvant immunotherapy x 1 year with durvalumab and repeat elective imaging CT 10/2023 per note but last CT imaging noted 07/10/2023 and less obtained elsewhere. Complicates presentation as noted, encourage continued outpatient follow-up as previously arranged. #5. Chronic COPD documented previous chronic hypoxic respiratory history but has been on room air for some time per review of pulmonary notes: Will temporally hold home inhalers and in the interim place on ATC budesonide therapy, PRN albuterol although patient is reticent about anything that increases her heart rate, HOB, IS parameters. #7. Hypertension: Noted in chart history, not on regimen, BP is elevated above goal but patient presenting acutely as noted #1, continue to monitor and add regimen if appropriate, as needed IV hydralazine in interim. #8. Hyperlipidemia: Noted in chart history, not on regimen, defer to outpatient. #9. History TIA: Given elevated troponin added as noted aspirin, not on statin therapy nor hypertensive regimen. #10. GERD with history of esophagitis: Will have as needed Mylanta regimen, not on chronic regimen per review of admitting medication list. #11. Anxiety: We will continue patient home clonazepam regimen. #12. Former tobacco use: Encourage continued tobacco cessation. #13. DVT prophylaxis: Lovenox with adjustment versus transition to heparin drip if enzyme rises further as noted above #1. #14. CODE status: Patient HCPOA is her daughter and living will is currently in place. Discussed CODE status at length including difference between FULL code, DNR-CCA and DNR-CC status. Following discussions about the differences in these status, requested DNR-CCA, no intubation status. She also very adamantly notes that if this ends up not being infection but recurrent lung cancer at that point she would choose to defer any treatment and likely seek hospice services. Advanced Care Planning Face to Face Time: 16 minutes. Charges/Coding Visit Charges Inpatient E&M: 45007 Init Hosp L3 Procedures Hospitalists Procedures: 92621 Advncd Care Plan 30 Min
--- NOTE | 2023-12-16 21:10 | EKG12_ITS ---
Test Reason : REPEAT EKG Blood Pressure : / mmHG Vent. Rate : 097 BPM Atrial Rate : 097 BPM P-R Int : 162 ms QRS Dur : 088 ms QT Int : 376 ms P-R-T Axes : 063 062 058 degrees QTc Int : 477 ms Normal sinus rhythm Minimal voltage criteria for LVH, may be normal variant ( Sokolow-Negro ) Borderline ECG When compared with ECG of 16-DEC-2023 16:34, MANUAL COMPARISON REQUIRED, DATA IS UNCONFIRMED Confirmed by WARREN FRANKS, COLLIN ([id number]), graphic editor JUANITA EWING ([id number]) on 12/19/2023 10:03:48 AM Referred By: Confirmed By:KENNY KELLEY MD
--- NOTE | 2023-12-16 21:10 | ECHOD_ITS ---
Reason For Study: ELEVATED TROPONIN Procedure This was a 2D Doppler, Color Flow transthoracic echocardiogram. The study was technically difficult. Exam performed portable in patient room. Left Ventricle Normal LV size. The estimated ejection fraction is 55 %. Unable to assess diastolic dysfunction. No regional wall motion abnormalities noted. Right Ventricle Normal RV size. Normal systolic function. Atria The left and right atria are normal. No doppler evidence for ASD. Mitral Valve There is moderate mitral annular calcification. There is no mitral valve stenosis. No mitral valve insufficiency. Tricuspid Valve There is no tricuspid stenosis. Unable to estimate RV systolic pressure due to inadequate jet, pulmonary artery pressure probably normal. Aortic Valve Trisinus/trileaflet aortic valve. There is no aortic stenosis. No aortic valve insufficiency. Pulmonic Valve There is no pulmonic valvular stenosis. No pulmonic valve insufficiency. Great Vessels Normal aortic root. Pericardium/Pleural No pericardial effusion. MMode/2D Measurements & Calculations LVIDd: 4.2 cm IVSd: 1.2 cm LVOT diam: 1.9 cm LVIDs: 2.8 cm LVPWd: 0.85 cm LVOT area: 2.9 cm2 RVDd: 2.7 cm FS: 32.9 % Ao root diam: 3.1 cm LAV(MOD-bp): 30.1 ml LVAd ap4: 19.9 cm2 LAV(MOD-bp) Indexed: 19.6 ml/m2 LVLd ap4: 6.7 cm LAV(MOD-sp2): 27.6 ml EDV(MOD-sp4): 49.9 ml LAV(MOD-sp4): 30.4 ml EDV(sp4-el): 50.4 ml LVAs ap4: 12.3 cm2 LVLs ap4: 5.3 cm ESV(MOD-sp4): 23.2 ml ESV(sp4-el): 24.2 ml EF(MOD-sp4): 53.6 % EF(sp4-el): 52.0 % LVAd ap2: 16.5 cm2 SV(MOD-sp4): 26.7 ml SV(MOD-sp2): 19.4 ml LVLd ap2: 6.5 cm EDV(MOD-sp2): 33.3 ml EDV(sp2-el): 35.4 ml LVAs ap2: 9.4 cm2 LVLs ap2: 5.2 cm ESV(MOD-sp2): 13.9 ml ESV(sp2-el): 14.5 ml EF(MOD-sp2): 58.3 % SV(sp4-el): 26.2 ml LA dimension(2D): 2.8 cm LA A4 area: 13.0 cm2 RA A4 area: 7.5 cm2 TAPSE: 1.3 cm Doppler Measurements & Calculations MV A max navin: 82.3 cm/sec Lat Peak E' Navin: 7.8 cm/sec Med Peak E' Navin: 7.3 cm/sec Ao V2 max: 112.1 cm/sec LV V1 max: 107.2 cm/sec SV(LVOT): 57.7 ml Ao max P.0 mmHg LV V1 max P.6 mmHg Ao V2 mean: 81.0 cm/sec LV V1 mean P.4 mmHg Ao mean P.0 mmHg LV V1 mean: 71.7 cm/sec Ao V2 VTI: 22.9 cm LV V1 VTI: 19.6 cm AV (velocity ratio): 0.86 VOLODYMYR(I,D): 2.5 cm2 VOLODYMYR(V,D): 2.8 cm2 PA V2 max: 72.1 cm/sec TR max navin: 253.7 cm/sec PA max PG (full): 0.19 mmHg TR max P.7 mmHg ECHO/Echo Complete Interpretation Summary The estimated ejection fraction is 55 %. Unable to assess diastolic dysfunction. Ordering Physician: Michelle Olea Referring Physician: Leidy Beyer Performed By: Hailey Otero RDCS
[2023-12-16 21:12] VITALS: BMI 18.3
[2023-12-16 21:30] LABS: Magnesium 1.8 mg/dL (1.6-2.6); Troponin-I HS 133 pg/mL (3.0-54.0)
[2023-12-16 21:31] LABS: Lactic Acid 0.5 mmol/L (0.4-1.9)
[2023-12-16] MEDS: 0.9% Normal Saline (1000mL) 1,000 ML 100 ML IV (21:47)
[2023-12-16 22:00] VITALS: BP 132/87; PULSE 101; RESP 18; TEMP 36.7; O2SAT 94
[2023-12-16 22:03] LABS: Phosphorus 3.6 mg/dL (2.5-4.9)
[2023-12-16] MEDS: clonazePAM 1 MG Tablet 2 MG PO (22:45)
[2023-12-16] MEDS: Aspirin 325 MG Tablet PO (22:45)
[2023-12-16] MEDS: 0.9% Saline Lock 10 ML Syringe IV (22:49)
[2023-12-16 23:39] LABS: Procalcitonin 0.06 ng/mL (0.00-0.09)
[2023-12-17] VITALS (7 sets, daily range): BP systolic 127–144; BP diastolic 69–92; PULSE 79–105; RESP 16–20; TEMP 36.4–36.8; O2SAT 93–98; BMI 18.3
[2023-12-17 01:03] LABS: Troponin-I HS 132 pg/mL (3.0-54.0)
[2023-12-17 03:18] LABS: Absolute Lymphocyte Count 1.11 X10^3/uL (0.83-4.51); Absolute Neutrophil Count 2.5 X10^3/uL (2.0-7.7); Basophil# 0.05 X10^3/uL; Basophil% 1.2 % (0-1); Eosinophil# 0.09 X10^3/uL; Eosinophils% 2.1 % (0-5); Hematocrit 36.3 % (37-47); Lymphocyte # 1.11 X10^3/ul (0.83-4.51); Lymphocyte % 25.6 % (19-41); Mean Corp Hgb Conc 33.1 g/dL (32-36); Mean Corpuscular Hgb 29.4 pg (27.0-32.0); Mean Platelet Vol. 9.1 fl (6.2-12.0); Monocyte# 0.57 X10^3/uL; Monocyte% 13.2 % (0-10); NRBC Flagged by Analyzer 0 % (0-5); Neutrophil % 57.7 % (47-70); Platelet Count 182 K/mm3 (150-450); RBC Distribution Width CV 13.1 % (11.6-14.6); RBC Distribution Width SD 42.5 fl (35.1-43.9); Red Blood Count 4.08 M/mm3 (4.2-5.4); White Blood Count 4.3 K/mm3 (4.4-11.0)
[2023-12-17 03:47] LABS: ALB/GLOB Ratio 0.9 RATIO (0.9-2.4); AST(SGOT) 15 U/L (15-37); Alanine Aminotransfer ALT/SGPT 11 U/L (13-56); Alkaline Phosphatase 56 U/L (45-117); Anion Gap 6 (5-15); BUN 9 mg/dL (7-18); BUN/Creat Ratio 17.3 RATIO (10-20); Calcium,Total 8.7 mg/dL (8.5-10.1); Chloride 106 mmol/L (98-107); Cholesterol 193 mg/dL (200); Creatinine, Serum 0.52 mg/dL (0.55-1.02); EST Glomerular Filtration Rate 123 mL/min (>60); Est Glom Filt Rate - Afr Amer 149 mL/min (>60); Estimated Creatinine Clearance 50.07 ml/min; Globulin 3.4 g/dL (2.2-4.2); Glucose 89 mg/dL (74-106); High Density Lipoprotein 45 mg/dL; Potassium 3.3 mmol/L (3.5-5.1); Protein, Total 6.4 g/dL (6.4-8.2); Sodium Level 138 mmol/L (136-145); T4 Free Direct 1.34 ng/dL (0.76-1.46); Triglycerides 107 mg/dL; Very Low Density Lipoprotein 21 mg/dL (5-40)
[2023-12-17 04:23] LABS: Troponin-I HS 137 pg/mL (3.0-54.0)
[2023-12-17] MEDS: Levothyroxine 100 MCG Tablet PO (06:10)
[2023-12-17] MEDS: Levothyroxine 25 MCG TABLET PO (06:10)
--- NOTE | 2023-12-17 07:13 | PN.HOSP_ITS ---
Reason for Visit Reason for Visit: Diagnoses Pneumonia, unspecified organism (12/16/23) Other specified abnormal findings of blood chemistry (12/16/23) Subjective Subjective Feels like she is still wheezing. Was having pain in her right shoulder which she got better after the tunneled port was removed but that comes back periodically. Objective Data Objective Data Vital Signs: Vital Signs Temp Pulse Resp BP Pulse Ox O2 Del Method 36.8 C 87 18 127/69 H 94 Room Air 12/17/23 04:15 12/17/23 04:15 12/17/23 04:15 12/17/23 04:15 12/17/23 04:15 12/17/23 04:18 Oxygen Delivery Method Room Air Weight: 49.9 kg Body Mass Index (BMI) 18.3 Intake & Output: Intake and Output for Last 24 Hours 12/15/23 12/16/23 12/17/23 23:59 23:59 23:59 Intake Total 1122.5 / 1122.5 Balance 1122.5 / 1122.5 Lab / Micro Data 12/17/23 03:05 12/17/23 03:05 Labs: Laboratory Results - last 24 hr 12/16/23 16:35: Urine Color Yellow, Urine Clarity Clear, Urine pH 6.5, Ur Specific [place] 1.010, Urine Protein Negative, Urine Glucose (UA) Normal, Urine Ketones Negative, Urine Occult Blood 25 H, Urine Nitrite Positive H, Urine Bilirubin Negative, Urine Urobilinogen Normal, Ur Leukocyte Esterase 500 H, Urine RBC 0-5 SEEN, Urine WBC 10-25 SEEN, Ur Squamous Epith Cells 0 SEEN, Urine Bacteria 2+, Urine Mucus 0 SEEN 12/16/23 16:45: WBC 6.7, RBC 4.79, Hgb 14.0, Hct 42.5, MCV 88.7, MCH 29.2, MCHC 32.9, RDW Std Deviation 42.5, RDW Coeff of Ruthie 13.1, Plt Count 217, MPV 9.3, Immature Gran % (Auto) 0.300, Neut % (Auto) 68.5, Lymph % (Auto) 20.1, Isabella % (Auto) 9.6, Eos % (Auto) 0.9, Baso % (Auto) 0.6, Absolute Neuts (auto) 4.6, Absolute Lymphs (auto) 1.34, Nucleated RBC % 0, D-Dimer Quant (PE/DVT) 0.91 H*, Sodium 138, Potassium 3.6, Chloride 104, Carbon Dioxide 28.0, Anion Gap 6, BUN 11, Creatinine 0.71, Estim Creat Clear Calc 50.61, Est GFR (MDRD) Af Amer 104, Est GFR (MDRD) Non-Af 86, BUN/Creatinine Ratio 15.4, Glucose 104, Calcium 9.7, T otal Bilirubin 1.10 H, Direct Bilirubin 0.20, AST 18, ALT 13, Alkaline Phosphatase 70, Troponin I High Sens 128 H*, Total Protein 7.7, Albumin 3.7, Globulin 4.0, Lipase 20, TSH 0.18 L 12/16/23 20:45: Lactic Acid 0.5, Phosphorus 3.6, Magnesium 1.8, Troponin I High Sens 133 H* 12/16/23 22:50: Procalcitonin 0.06 12/16/23 23:30: Troponin I High Sens 132 H* 12/17/23 03:05: WBC 4.3 L, RBC 4.08 L, Hgb 12.0, Hct 36.3 L, MCV 89.0, MCH 29.4, MCHC 33.1, RDW Std Deviation 42.5, RDW Coeff of Ruthie 13.1, Plt Count 182, MPV 9.1, Immature Gran % (Auto) 0.200, Neut % (Auto) 57.7, Lymph % (Auto) 25.6, Isabella % (Auto) 13.2 H, Eos % (Auto) 2.1, Baso % (Auto) 1.2 H, Absolute Neuts (auto) 2.5, Absolute Lymphs (auto) 1.11, Nucleated RBC % 0, Sodium 138, Potassium 3.3 L , Chloride 106, Carbon Dioxide 26.0, Anion Gap 6, BUN 9, Creatinine 0.52 L, Estim Creat Clear Calc 50.07, Est GFR (MDRD) Af Amer 149, Est GFR (MDRD) Non-Af 123, BUN/Creatinine Ratio 17.3, Glucose 89, Calcium 8.7, Total Bilirubin 1.00, AST 15, ALT 11 L, Alkaline Phosphatase 56, Troponin I High Sens 137 H*, Total Protein 6.4, Albumin 3.0 L, Globulin 3.4, Albumin/Globulin Ratio 0.9, Triglycerides 107, Cholesterol 193, LDL Cholesterol 127, VLDL Cholesterol 21, HDL Cholesterol 45, Free T4 1.34 Micro: Microbiology 12/16/23 23:55 Mucosa - Nasopharyngeal Respiratory Panel (PCR) - Final 12/16/23 16:35 Urine, Clean Catch Legionella Antigen - Final 12/16/23 16:35 Urine, Clean Catch Streptococcus pneumoniae Antigen (M - Final Radiography Diagnostic Testing: Radiology Impression Chest X-Ray 12/16/23 16:48 IMPRESSION: Bilateral pneumonia. Right pleural effusion. Electronically Signed: Mando Genao MD at 17:06 EDT , Abdomen/Pelvis CT 12/16/23 17:32 IMPRESSION: (NOT LISTED IN ORDER OF SIGNIFICANCE) Moderate right pleural effusion. Right lower lobe infiltrate. Other findings as above. Electronically Signed: Mando Genao MD at 19:12 EDT , Chest CTA 12/16/23 17:32 IMPRESSION: 1. No demonstrated pulmonary embolism or arterial dissection. 2. There is a diffuse right pneumonia with likely right middle lobe atelectatic collapse. 3. Moderate right pleural effusion. Electronically Signed: Mando Genao MD at 19:06 EDT , Physical Exam Const alert and no apparent distress Constitutional Narrative: On room air. No respiratory distress. No conversational dyspnea. Sitting up in chair. Cachectic appearance. HEENT head/scalp atraumatic and moist oral mucous membranes Resp normal respiratory effort, no retractions, no use of accessory muscles and clear to auscultation bilaterally Cardio regular rate, regular rhythm, S1 normal heart sound and S2 normal heart sound GI normal to inspection, nondistended, normoactive bowel sounds, soft to palpation, non-tender and non-distended Extremity normal to inspection and full ROM Neuro Sensorium / Orientation: awake and alert Assessment & Plan Assessment/Plan (1) Elevated troponin: (2) Pneumonia: PLAN: Plan Abnormal CT, concern for pneumonia. * strep and legionella antigens negative. BCx pending. Resp panel negative. * Patient with increased infiltrates, effusions, blebs on CT. Unclear if progression or if underlying pneumonia. * abx with CTX and azithromycin. PEP * Discussed Dr. Arciniega. Recommend continue with antibiotics. Elevated troponins * chronically elevated dating back to 2020. Echo in 2020 showed an EF 65%. Repeat echo pending. Continue ASA. Chronic conditions: * Hypothyroidism with abnormal TSH: Continue levothyroxine. Check FT4 * Stage IIIb NSCLC: Received combined modality therapy with chemo (weekly CarboTaxol) and radiation January-February followed by 2 cycles of carbo Taxol 3 weeks intervals in March 2023. Tolerated treatment with no grade 3 or 4 toxicities. Restaging by PET CT April 2023 shows no evidence to suggest metastatic disease. Follow up with med onc and rad onc. * Chronic COPD stable. CT shows increased bleb size since prior CT in July. Discussed with Dr. Arciniega whom I consulted. He just recommends continuing the antibiotics but adding Atrovent to her bronchodilators as patient has not tolerated albuterol in the past. * History TIA: Given elevated troponin added as noted aspirin, not on statin therapy nor hypertensive regimen. * GERD with history of esophagitis: Will have as needed Mylanta regimen, not on chronic regimen per review of admitting medication list. * Anxiety: We will continue patient home clonazepam regimen. VTE prophylaxis: LMWH Full Code. Will monitor patient overnight to see how she tolerates the antibiotics as well as Atrovent. Charges/Coding Visit Charges Inpatient E&M: 21747 Subs Hosp L2
[2023-12-17] MEDS: 0.9% Normal Saline (1000mL) 1,000 ML 100 ML IV (08:07)
[2023-12-17] MEDS: Acetaminophen 325 MG Tablet 650 MG PO (09:31)
[2023-12-17] MEDS: Potassium Chloride Oral Tablet 20 MEQ 40 MEQ PO (09:32)
[2023-12-17] MEDS: Multivitamins,Ther W-Minerals Tablet 1 TABLET PO (09:33)
[2023-12-17] MEDS: Ceftriaxone 1 GM/50 ML BAG IV (09:33)
[2023-12-17] MEDS: Calcium Carb/Vitamin D 1 TABLET Tablet PO (09:33)
[2023-12-17] MEDS: Aspirin 81 MG TAB.CHEW PO (09:33)
[2023-12-17] MEDS: Enoxaparin 30 MG/0.3 ML Syringe SC (09:36)
--- NOTE | 2023-12-17 10:11 | EX.PCM.CONCC ---
Assessment & Plan Assessment/Plan (1) Pneumonia: PLAN: Plan RECOMMENDATIONS: 1. Continue empiric antimicrobial therapy. Await finalized urine culture results. 2. Start scheduled Atrovent aerosols, given the patient's reported adverse reaction to albuterol. 3. Encourage incentive spirometer use and mobilize patient as tolerated. 4. Await results of echocardiogram. 5. Recommend follow-up CT scan of the chest in 6 to 8 weeks. 6. Recommend follow-up in the pulmonary medicine clinic 2 weeks after discharge. IMPRESSIONS: 1. Shortness of breath with right-sided chest discomfort The patient has a known history of COPD, not currently on a maintenance inhaler regimen, who presented to the emergency department with shortness of breath and right-sided chest discomfort, in the setting of radiographic evidence of right-sided pneumonia and concern for right middle lobe atelectasis. No PE was identified. The patient was subsequently placed on antimicrobials. She will be initiated on bronchodilator therapy with Atrovent. In light of her malignancy history, I would recommend follow-up CT imaging of the chest in 6 to 8 weeks. Ultimately, the patient will need to complete 7 days of antimicrobials. She would benefit from further follow-up in the pulmonary medicine clinic within 2 weeks of discharge from the hospital. If the patient remains symptomatic from a pulmonary perspective, I would advocate that we place her on scheduled LAMA therapy on an outpatient basis, given that she reported that albuterol leads to tachycardia. If there continues to be any concerning radiographic findings on follow-up chest imaging, bronchoscopy could be considered. 2. Troponin elevation Echocardiogram is currently pending. 3. History of lung CA/COPD/hypertension/hyperlipidemia/Graves' disease/GERD/anxiety/history of tobacco dependency in remission Complicates care, management, recovery and prognosis. Continue home medications as indicated. This note was generated with [employer] Here[employer] software. It may contain incorrect words, spelling, and punctuation that were not noted in checking the note before signing. HPI Consult Data Date of Consult: 12/17/23 HPI Narrative Reason for Consultation: COPD exacerbation HPI Narrative: The patient is a 73-year-old female, with a history as outlined below, who presented to the emergency department on December 15 with reported shortness of breath and right-sided chest discomfort. The patient has a known pulmonary history that includes mild COPD, stage III non-small cell lung cancer status post chemo and radiation and prior history of tobacco dependency. The patient has been followed in the outpatient pulmonary clinic by both Dr. Wells and Dr. Larose. The patient was last seen in the pulmonary office in June 2023, at which time, it was recommended that she follow-up in 6 months. The patient has no further scheduled follow-up appointments. The patient's underlying pulmonary malignancy is felt to be in remission. During her July 2023 oncology follow-up, there was recommendation to proceed with 3-month follow-up CT imaging. However, the patient reported that following a discussion with her PCP, she opted not to pursue any additional chest imaging. The patient does not utilize supplemental oxygen at her baseline. Although she has been prescribed multiple different inhalers through the pulmonary medicine office, she does not currently utilize any bronchodilators, stating that they all exacerbate her Graves' disease. On presentation to the emergency department, the patient was documented to be afebrile but was otherwise hemodynamically stable and maintaining appropriate oxygen saturations on room air. Laboratory evaluation revealed a normal white blood cell count. D-dimer was mildly elevated at 0.91. Chemistry profile was unrevealing. Lactate was within normal limits. Troponin was mildly elevated at 128. Procalcitonin was normal. Urine analysis was positive for nitrates, leukocyte esterase and 2+ urine bacteria. CTA chest showed no evidence for pulmonary embolism, but did demonstrate right middle and lower lobe infiltrate with right middle lobe atelectasis and multi bullae bilaterally. Respiratory viral panel was negative. The patient did receive supplemental IV fluid hydration and was subsequently placed on antimicrobials. She was admitted to the progressive care unit for further management. [facility] Medical History Port-A-Cath in place Encounter for chemotherapy management Primary cancer of bronchus of right lower lobe Tetanus toxoid vaccination administered at current visit Cat bite of left forearm with infection Regional lymph node metastasis present Chronic respiratory failure with hypoxia Stage 2 moderate COPD by GOLD classification Squamous cell carcinoma of lung, stage III Loss of hearing Cataract Wears dentures Essential hypertension TIA (transient ischemic attack) Restless leg syndrome Graves disease HLD (hyperlipidemia) Hypothyroidism Former smoker Home Medications ?Medication ?Instructions ?Recorded ?Last Taken ?Type clonazepam 1 mg tablet 2 mg PO QHS ANXIETY 12/28/20 12/15/23 History calcium carbonate 500 mg-vitamin 1 tab PO DAILY SUPPLEMENT 11/06/22 12/16/23 History D3 3.125 mcg (125 unit) tablet levothyroxine 100 mcg tablet 125 mcg PO DAILY 12/28/22 12/16/23 History Hair Prosthesis #1 ea 03/13/23 Unknown Rx potassium gluconate 600 mg (99 mg) 600 mg PO DAILY 05/01/23 12/14/23 History tablet multivitamin with minerals-folic 1 tab PO DAILY 12/16/23 12/16/23 History acid 80 mcg chewable tablet (Centrum Adult 50 Plus) tizanidine 4 mg tablet 4 mg PO BID PRN PRN muscle 12/16/23 Unknown History spasticity Allergy/AdvReac Type Severity Reaction Status Date / Time Penicillins Allergy Unknown Swelling Verified 12/16/23 16:11 cheese Allergy Hives Verified 10/09/23 07:57 chocolate flavor Allergy Rash Verified 10/09/23 07:57 Family History Mother Hypertension Father Hypertension Surgical History History of hysterectomy History of appendectomy Social History household members: none Smoking Status: Former smoker alcohol intake: never substance use type: does not use ROS ROS Narrative 10 systems were reviewed with pertinent positives as noted in the HPI above. Physical Exam Const alert and no apparent distress General Appearance: cooperative HEENT normocephalic and head/scalp atraumatic Eyes PERRL, EOMs intact bilaterally and conjunctivae normal Neck supple General: trachea midline Chest inspection of chest normal Resp Auscultation: rales right and diminished lung sounds Cardio regular rate and regular rhythm GI normal to inspection, nondistended, normoactive bowel sounds Extremity no clubbing, cyanosis or edema Skin no rashes or lesions noted Neuro CN's II-XII intact bilaterally and no focal motor deficits Psych cooperative and affect normal Lab / Micro Data 12/17/23 03:05 12/17/23 03:05 Labs: Laboratory Results - last 24 hr 12/16/23 16:35: Urine Color Yellow, Urine Clarity Clear, Urine pH 6.5, Ur Specific [place] 1.010, Urine Protein Negative, Urine Glucose (UA) Normal, Urine Ketones Negative, Urine Occult Blood 25 H, Urine Nitrite Positive H, Urine Bilirubin Negative, Urine Urobilinogen Normal, Ur Leukocyte Esterase 500 H, Urine RBC 0-5 SEEN, Urine WBC 10-25 SEEN, Ur Squamous Epith Cells 0 SEEN, Urine Bacteria 2+, Urine Mucus 0 SEEN 12/16/23 16:45: WBC 6.7, RBC 4.79, Hgb 14.0, Hct 42.5, MCV 88.7, MCH 29.2, MCHC 32.9, RDW Std Deviation 42.5, RDW Coeff of Ruthie 13.1, Plt Count 217, MPV 9.3, Immature Gran % (Auto) 0.300, Neut % (Auto) 68.5, Lymph % (Auto) 20.1, [place] % (Auto) 9.6, Eos % (Auto) 0.9, Baso % (Auto) 0.6, Absolute Neuts (auto) 4.6, Absolute Lymphs (auto) 1.34, Nucleated RBC % 0, D-Dimer Quant (PE/DVT) 0.91 H*, Sodium 138, Potassium 3.6, Chloride 104, Carbon Dioxide 28.0, Anion Gap 6, BUN 11, Creatinine 0.71, Estim Creat Clear Calc 50.61, Est GFR (MDRD) Af Amer 104, Est GFR (MDRD) Non-Af 86, BUN/Creatinine Ratio 15.4, Glucose 104, Calcium 9.7, Total Bilirubin 1.10 H, Direct Bilirubin 0.20, AST 18, ALT 13, Alkaline Phosphatase 70, Troponin I High Sens 128 H*, Total Protein 7.7, Albumin 3.7, Globulin 4.0, Lipase 20, TSH 0.18 L 12/16/23 20:45: Lactic Acid 0.5, Phosphorus 3.6, Magnesium 1.8, Troponin I High Sens 133 H* 12/16/23 22:50: Procalcitonin 0.06 12/16/23 23:30: Troponin I High Sens 132 H* 12/17/23 03:05: WBC 4.3 L, RBC 4.08 L, Hgb 12.0, Hct 36.3 L, MCV 89.0, MCH 29.4, MCHC 33.1, RDW Std Deviation 42.5, RDW Coeff of Ruthie 13.1, Plt Count 182, MPV 9.1, Immature Gran % (Auto) 0.200, Neut % (Auto) 57.7, Lymph % (Auto) 25.6, [place] % (Auto) 13.2 H, Eos % (Auto) 2.1, Baso % (Auto) 1.2 H, Absolute Neuts (auto) 2.5, Absolute Lymphs (auto) 1.11, Nucleated RBC % 0, Sodium 138, Potassium 3.3 L, Chloride 106, Carbon Dioxide 26.0, Anion Gap 6, BUN 9, Creatinine 0.52 L, Estim Creat Clear Calc 50.07, Est GFR (MDRD) Af Amer 149, Est GFR (MDRD) Non-Af 123, BUN/Creatinine Ratio 17.3, Glucose 89, Calcium 8.7, Total Bilirubin 1.00, AST 15, ALT 11 L, Alkaline Phosphatase 56, Troponin I High Sens 137 H*, Total Protein 6.4, Albumin 3.0 L, Globulin 3.4, Albumin/Globulin Ratio 0.9, Triglycerides 107, Cholesterol 193, LDL Cholesterol 127, VLDL Cholesterol 21, HDL Cholesterol 45, Free T4 1.34 Micro: Microbiology 12/16/23 23:55 Mucosa - Nasopharyngeal Respiratory Panel (PCR) - Final 12/16/23 16:35 Urine, Clean Catch Legionella Antigen - Final 12/16/23 16:35 Urine, Clean Catch Streptococcus pneumoniae Antigen (M - Final Imaging Radiology Impression Chest X-Ray 12/16/23 16:48 IMPRESSION: Bilateral pneumonia. Right pleural effusion. Electronically Signed: Mando Genao MD at 17:06 EDT , Abdomen/Pelvis CT 12/16/23 17:32 IMPRESSION: (NOT LISTED IN ORDER OF SIGNIFICANCE) Moderate right pleural effusion. Right lower lobe infiltrate. Other findings as above. Electronically Signed: Mando Genao MD at 19:12 EDT , Chest CTA 12/16/23 17:32 IMPRESSION: 1. No demonstrated pulmonary embolism or arterial dissection. 2. There is a diffuse right pneumonia with likely right middle lobe atelectatic collapse. 3. Moderate right pleural effusion. Electronically Signed: Mando Genao MD at 19:06 EDT , Charges/Coding Visit Charges Inpatient E&M: 53236 Init Hosp L3
[2023-12-17] MEDS: Azithromycin 500 MG in Dextrose 5%-Water (250mL Bag) 250 ML 250 MG IV (11:00)
--- NOTE | 2023-12-17 11:49 | CASEMGMT ---
Social Work SW met with pt and dgt and introduced self and role of SW. SW completed Social Determinant of Health Assessment. Pt states that she just got enrolled with [employer] and her director career services is Lenora Arrieta. Pt reports she just started home delivered meals with [employer] through [employer]. Pt has obtained information on [employer] and has an appointment set to discuss PIP and HEAP programs. SW spoke with pt regarding [place] and provided written information. Phone call to Lenora Arrieta at [facility] and notified of hospitalization. Lenora confirms pt has home delivered meals and a medical alert. Pt qualifies for a home health care case manager, but is not accepting at this time. SW will update [facility] at time of discharge. JING Sanchez
--- NOTE | 2023-12-17 12:12 | CASEMGMT ---
JOSE [facility] Assessment Face to Face with patient for initial transition planning/care coordination assessment. RN NIURKA introduced self and role at [facility], pt voices understanding. Pt is A&Ox4 and is resting comfortably in bed and is calm. Care providers, pharmacy, and demographics verified. Admitting dx: Elevated Troponin,UTI PCP: Leidy Beyer Specialists: Pt denies. Pt used to see an Oncologist Preferred Pharmacy: [facility] Insurance: MARY Quezada Prescription Benefit: Yes LNOK: Polo Mckeon (Daughter) Living Arrangements: Pt lives alone in a two story home with 1 step to enter ADLs/IADLs: States independent, still works around 8-10 hours per week. Pt is active with [employer] but refused the home health administrator services. Pt gets [employer] delivered. Pt daughter and GS (Age 21) can help the pt at home as well Transportation: Self, Daughter. Denies concerns DME: [employer] but does not use. Medical alert. If pt qualifies for a nebulizer and/ or home oxygen, pt prefers [employer]. (A verbal list of local in-network DME companies was provided to the pt) HHC/SNF: denies history or needs Pt?s goal: Home Plan: Home. 6-click is 23. PT Eval is pending. At this time, the pt denies the need for HHC, OP Tx, or SNF. Pt states that she feels safe returning home once medically ready with the support she has already. CM to follow for potential nebulizer and oxygen needs. Bekah Cui RN, CM
[2023-12-17] MEDS: 0.9% Saline Lock 10 ML Syringe IV (14:37)
[2023-12-17] MEDS: Ipratropium 0.5 MG/2.5 ML SOLUTION INHALATION ×2 (15:48→21:14)
[2023-12-17] MEDS: clonazePAM 1 MG Tablet 2 MG PO (21:02)
[2023-12-18] VITALS (7 sets, daily range): BP systolic 103–126; BP diastolic 62–91; PULSE 81–94; RESP 16–20; TEMP 36.4–36.5; O2SAT 90–100; BMI 18.3
[2023-12-18] MEDS: Levothyroxine 100 MCG Tablet PO (05:33)
[2023-12-18] MEDS: Levothyroxine 25 MCG TABLET PO (05:33)
[2023-12-18 06:09] LABS: Absolute Lymphocyte Count 1.28 X10^3/uL (0.83-4.51); Absolute Neutrophil Count 3.1 X10^3/uL (2.0-7.7); Basophil# 0.04 X10^3/uL; Basophil% 0.8 % (0-1); Eosinophil# 0.15 X10^3/uL; Eosinophils% 2.9 % (0-5); Hemoglobin 12.8 g/dL (12.0-15.0); Lymphocyte # 1.28 X10^3/ul (0.83-4.51); Lymphocyte % 24.8 % (19-41); Mean Corp Hgb Conc 32.8 g/dL (32-36); Mean Corpuscular Hgb 29.4 pg (27.0-32.0); Mean Corpuscular Volume 89.4 fL (81-99); Mean Platelet Vol. 9.4 fl (6.2-12.0); Monocyte# 0.63 X10^3/uL; Monocyte% 12.2 % (0-10); NRBC Flagged by Analyzer 0 % (0-5); Neutrophil # 3.06 X10^3/uL (2.7-7.7); Neutrophil % 59.1 % (47-70); Platelet Count 197 K/mm3 (150-450); RBC Distribution Width CV 13.2 % (11.6-14.6); RBC Distribution Width SD 43.3 fl (35.1-43.9); Red Blood Count 4.36 M/mm3 (4.2-5.4); White Blood Count 5.2 K/mm3 (4.4-11.0)
[2023-12-18 06:36] LABS: Anion Gap 5 (5-15); BUN 18 mg/dL (7-18); BUN/Creat Ratio 29.1 RATIO (10-20); Calcium,Total 9.1 mg/dL (8.5-10.1); Chloride 107 mmol/L (98-107); Creatinine, Serum 0.62 mg/dL (0.55-1.02); EST Glomerular Filtration Rate 101 mL/min (>60); Est Glom Filt Rate - Afr Amer 122 mL/min (>60); Estimated Creatinine Clearance 50.17 ml/min; Glucose 103 mg/dL (74-106); Potassium 3.7 mmol/L (3.5-5.1); Sodium Level 139 mmol/L (136-145)
--- NOTE | 2023-12-18 07:14 | PN.HOSP_ITS ---
Reason for Visit Reason for Visit: Diagnoses Pneumonia, unspecified organism (12/16/23) Other specified abnormal findings of blood chemistry (12/16/23) Subjective Subjective Feels well. Ready to go home. Objective Data Objective Data Vital Signs: Vital Signs Temp Pulse Resp BP Pulse Ox O2 Del Method 36.5 C L 94 16 103/62 95 Room Air 12/18/23 03:18 12/18/23 03:18 12/18/23 03:18 12/18/23 03:18 12/18/23 03:18 12/18/23 03:18 Oxygen Delivery Method Room Air Weight: 50 kg Body Mass Index (BMI) 18.3 Intake & Output: Intake and Output for Last 24 Hours 12/16/23 12/17/23 12/18/23 23:59 23:59 23:59 Intake Total 1122.5 / 1122.5 1758.33 / 1758.33 Balance 1122.5 / 1122.5 1758.33 / 1758.33 Medical Nutrition Assessment Dietitian: Malnutrition Criteria Met Start: 12/17/23 15:45 Freq: Status: Active Protocol: Document 12/17/23 15:46 SB (Rec: 12/17/23 15:46 SB [id number]) Nutrition Malnutrition Evidence of Malnutrition Exists Yes Malnutrition (severe): Chronic Evidenced By Suboptimal Energy Intake ( Severe),Weight Loss (Severe), Physical Changes (Mild) Clinical Problem Chronic Disease or Condition Related Malnutrition Etiology severe protein-calorie malnutrition in the context of chronic disease related to inadequate oral/energy/protein intake Signs/Symptoms as evidence by mild muscle wasting in the mandaen and clavicle region, unintended weight loss of 25.67% x 1year, oral intake meeting <50% of estimated nutritional needs x 6 months, and BMI of 18.3. Status Active Problem Recommendation Dietitian Recommendations/Changes Continue regular diet as ordered. Will add 8 oz of vanilla Stark Breakfast made with whole milk at dinner for additional intake of calories and protein. Will offer additional ONS per pt acceptance and tolerance. Dislikes Ensure products, consider PO Boost for home going. If weight continues to decline and PO does not improve may need to consider enteral nutrition support for calories and protein repletion. Reviewed and approved by Niesha Mccallum, MS, RD, LD Lab / Micro Data 12/18/23 05:46 12/18/23 05:46 Labs: Laboratory Results - last 24 hr 12/18/23 05:46: WBC 5.2, RBC 4.36, Hgb 12.8, Hct 39.0, MCV 89.4, MCH 29.4, MCHC 32.8, RDW Std Deviation 43.3, RDW Coeff of Ruthie 13.2, Plt Count 197, MPV 9.4, Immature Gran % (Auto) 0.200, Neut % (Auto) 59.1, Lymph % (Auto) 24.8, [place] % (Auto) 12.2 H, Eos % (Auto) 2.9, Baso % (Auto) 0.8, Absolute Neuts (auto) 3.1, Absolute Lymphs (auto) 1.28, Nucleated RBC % 0, Sodium 139, Potassium 3.7, Chloride 107, Carbon Dioxide 27.0, Anion Gap 5, BUN 18, Creatinine 0.62, Estim Creat Clear Calc 50.17, Est GFR (MDRD) Af Amer 122, Est GFR (MDRD) Non-Af 101, B UN/Creatinine Ratio 29.1 H, Glucose 103, Calcium 9.1 Micro: Microbiology 12/16/23 16:58 Urine, Clean Catch Urine Culture - Preliminary GNR lactose syrup filterer 12/16/23 23:55 Mucosa - Nasopharyngeal Respiratory Panel (PCR) - Final 12/16/23 16:35 Urine, Clean Catch Legionella Antigen - Final 12/16/23 16:35 Urine, Clean Catch Streptococcus pneumoniae Antigen (M - Final Radiography Diagnostic Testing: Radiology Impression Echocardiogram 12/16/23 21:10 Interpretation Summary The estimated ejection fraction is 55 %. Unable to assess diastolic dysfunction. Ordering Physician: Michelle Olea Referring Physician: Leidy Beyer Performed By: Hailey Otero, IMTIAZ Physical Exam Const alert and no apparent distress HEENT head/scalp atraumatic and moist oral mucous membranes Resp normal respiratory effort, no retractions, no use of accessory muscles and clear to auscultation bilaterally Cardio regular rate, regular rhythm, S1 normal heart sound and S2 normal heart sound GI normal to inspection, nondistended, normoactive bowel sounds, soft to palpation, non-tender and non-distended Extremity normal to inspection and full ROM Neuro Sensorium / Orientation: awake and alert Assessment & Plan Assessment/Plan (1) Elevated troponin: (2) Pneumonia: PLAN: Plan Abnormal CT, concern for pneumonia. * strep and legionella antigens negative. BCx pending. Resp panel negative. * Patient with increased infiltrates, effusions, blebs on CT. Unclear if progression or if underlying pneumonia. * abx with CTX and azithromycin. PEP. Discharge with levofloxacin. * Discussed Dr. Arciniega. Recommend continue with antibiotics. Elevated troponins * chronically elevated dating back to 2020. Echo in 2020 showed an EF 65%. Repeat echo pending. Continue ASA. UTI * 500 LE, positive nitrites, 10-25 WBC. UCx >100k Klebsiella Chronic conditions: * Hypothyroidism with abnormal TSH: Continue levothyroxine. Check FT4 * Stage IIIb NSCLC: Received combined modality therapy with chemo (weekly CarboTaxol) and radiation January-February followed by 2 cycles of carbo Taxol 3 weeks intervals in March 2023. Tolerated treatment with no grade 3 or 4 toxicities. Restaging by PET CT April 2023 shows no evidence to suggest metastatic disease. Follow up with med onc and rad onc. * Chronic COPD stable. CT shows increased bleb size since prior CT in July. Discussed with Dr. Arciniega whom I consulted. He just recommends continuing the antibiotics but adding Atrovent to her bronchodilators as patient has not tolerated albuterol in the past. * History TIA: Given elevated troponin added as noted aspirin, not on statin therapy nor hypertensive regimen. * GERD with history of esophagitis: Will have as needed Mylanta regimen, not on chronic regimen per review of admitting medication list. * Anxiety: We will continue patient home clonazepam regimen. VTE prophylaxis: LMWH Full Code.
[2023-12-18] MEDS: Ipratropium 0.5 MG/2.5 ML SOLUTION INHALATION ×2 (07:26→12:37)
[2023-12-18] MEDS: Calcium Carb/Vitamin D 1 TABLET Tablet PO (08:10)
[2023-12-18] MEDS: Acetaminophen 325 MG Tablet 650 MG PO (08:10)
[2023-12-18] MEDS: Enoxaparin 30 MG/0.3 ML Syringe SC (08:10)
[2023-12-18] MEDS: Aspirin 81 MG TAB.CHEW PO (08:10)
[2023-12-18] MEDS: Multivitamins,Ther W-Minerals Tablet 1 TABLET PO (08:10)
[2023-12-18] MEDS: tiZANidine HCl 2 MG Tablet 4 MG PO (08:12)
[2023-12-18] MEDS: Ceftriaxone 1 GM/50 ML BAG IV (09:39)
[2023-12-18] MEDS: 0.9% Saline Lock 10 ML Syringe IV (09:39)
[2023-12-18] MEDS: Azithromycin 500 MG in Dextrose 5%-Water (250mL Bag) 250 ML 250 MG IV (10:25)
--- NOTE | 2023-12-18 12:01 | DS.PCM_ITS ---
Providers Date of Admission: 12/16/23 Primary Care Physician: Dr. Leidy Beyer, DO Consultations 12/17/23 07:36 Consult: Environmental Services Technician / Pulmonary Medicine Routine Consulting Provider: Intensivists/Pulmonary Med Reason for Consult: abnormal CT chest EMERGENT Consult: No MD Notified: Yes Date Notified: 12/17/23 Time Notified: 07:37 Method of Notification: Verbal Reason For Visit: ELEVATED TROP, R SIDED PNA/EFFUSION, ? UTI Diagnosis Discharge Diagnosis (1) Elevated troponin: Status: Acute Code(s): R79.89 - Other specified abnormal findings of blood chemistry (2) Pneumonia: Status: Acute Code(s): J18.9 - Pneumonia, unspecified organism Plan Abnormal CT, concern for pneumonia. * strep and legionella antigens negative. BCx pending. Resp panel negative. * Patient with increased infiltrates, effusions, blebs on CT. Unclear if progression or if underlying pneumonia. * abx with CTX and azithromycin. PEP. Discharge with levofloxacin. * Discussed Dr. Arciniega. Recommend continue with antibiotics. Elevated troponins * chronically elevated dating back to 2020. Echo in 2020 showed an EF 65%. Repeat echo pending. Continue ASA. UTI * 500 LE, positive nitrites, 10-25 WBC. UCx >100k Klebsiella Chronic conditions: * Hypothyroidism with abnormal TSH: Continue levothyroxine. Check FT4 * Stage IIIb NSCLC: Received combined modality therapy with chemo (weekly CarboTaxol) and radiation January-February followed by 2 cycles of carbo Taxol 3 weeks intervals in March 2023. Tolerated treatment with no grade 3 or 4 toxicities. Restaging by PET CT April 2023 shows no evidence to suggest metastatic disease. Follow up with med onc and rad onc. * Chronic COPD stable. CT shows increased bleb size since prior CT in July. Discussed with Dr. Arciniega whom I consulted. He just recommends continuing the antibiotics but adding Atrovent to her bronchodilators as patient has not tolerated albuterol in the past. * History TIA: Given elevated troponin added as noted aspirin, not on statin therapy nor hypertensive regimen. * GERD with history of esophagitis: Will have as needed Mylanta regimen, not on chronic regimen per review of admitting medication list. * Anxiety: We will continue patient home clonazepam regimen. VTE prophylaxis: LMWH Full Code. Medications at Discharge Home Medications clonazepam 1 mg tablet 2 mg PO QHS ANXIETY 12/28/20 calcium carbonate 500 mg-vitamin D3 3.125 mcg (125 unit) tablet 1 tab PO DAILY SUPPLEMENT 11/06/22 levothyroxine 100 mcg tablet 125 mcg PO DAILY 12/28/22 Hair Prosthesis #1 ea 03/13/23 potassium gluconate 600 mg (99 mg) tablet 600 mg PO DAILY 05/01/23 multivitamin with minerals-folic acid 80 mcg chewable tablet (Centrum Adult 50 Plus) 1 tab PO DAILY 12/16/23 tizanidine 4 mg tablet 4 mg PO BID PRN PRN muscle spasticity 12/16/23 ipratropium bromide 0.02 % solution for inhalation 0.5 mg (2.5 mL) inhalation Q6HWA.RT #62.5 mL 12/18/23 levofloxacin 500 mg tablet 500 mg PO DAILY #5 tabs 12/18/23 Hospital Course Operations None Procedures None Summary of Care Provided Minutes Spent on Discharge: 40 Hospital Course: Patient presents with right-sided chest pain. Chest x-ray shows potentially increasing infiltrates on chronic changes as well as labs. Patient has been having chest pain that led to her port being replaced. She noted that she had improved pain after that but it does come and go. Also concerned that the port may be contribute to her leg pain but this was discussed with her and her family member that not be possible. Patient was seen by Dr. Arciniega, pulmonology who recommends continue with antibiotics and follow-up pulmonology. Also recommended trying Atrovent for COPD. Patient has not tolerated albuterol and is also concerned about a butyryl given her Graves' disease. Even though she had radioactive iodine she apparently still has some residual thyroid tissue left that could repeat reactivates. Patient was observed with the Atrovent and did well. Patient be discharged with course of Levaquin as well as Atrovent. Medical Records Data Medical Nutrition Assessment Dietitian: Malnutrition Criteria Met Start: 12/17/23 15:45 Freq: Status: Active Protocol: Document 12/17/23 15:46 SB (Rec: 12/17/23 15:46 SB [id number]) Nutrition Malnutrition Evidence of Malnutrition Exists Yes Malnutrition (severe): Chronic Evidenced By Suboptimal Energy Intake ( Severe),Weight Loss (Severe), Physical Changes (Mild) Clinical Problem Chronic Disease or Condition Related Malnutrition Etiology severe protein-calorie malnutrition in the context of chronic disease related to inadequate oral/energy/protein intake Signs/Symptoms as evidence by mild muscle wasting in the evangelical and clavicle region, unintended weight loss of 25.67% x 1year, oral intake meeting <50% of estimated nutritional needs x 6 months, and BMI of 18.3. Status Active Problem Recommendation Dietitian Recommendations/Changes Continue regular diet as ordered. Will add 8 oz of vanilla Mobile Breakfast made with whole milk at dinner for additional intake of calories and protein. Will offer additional ONS per pt acceptance and tolerance. Dislikes Ensure products, consider PO Boost for home going. If weight continues to decline and PO does not improve may need to consider enteral nutrition support for calories and protein repletion. Reviewed and approved by Niesha Mccallum, MS, RD, LD Weight / BMI Weight Weight: 50 kg Body Mass Index (BMI) 18.3 ABG / Lab / Microbiology Data 12/18/23 05:46 12/18/23 05:46 Laboratory: Laboratory Results - last 24 hr 12/18/23 05:46: WBC 5.2, RBC 4.36, Hgb 12.8, Hct 39.0, MCV 89.4, MCH 29.4, MCHC 32.8, RDW Std Deviation 43.3, RDW Coeff of Ruthie 13.2, Plt Count 197, MPV 9.4, Immature Gran % (Auto) 0.200, Neut % (Auto) 59.1, Lymph % (Auto) 24.8, [place]urry % (Auto) 12.2 H, Eos % (Auto) 2.9, Baso % (Auto) 0.8, Absolute Neuts (auto) 3.1, Absolute Lymphs (auto) 1.28, Nucleated RBC % 0, Sodium 139, Potassium 3.7, Chloride 107, Carbon Dioxide 27.0, Anion Gap 5, BUN 18, Creatinine 0.62, Estim Creat Clear Calc 50.17, Est GFR (MDRD) Af Amer 122, Est GFR (MDRD) Non-Af 101, B UN/Creatinine Ratio 29.1 H, Glucose 103, Calcium 9.1 Microbiology: Microbiology 12/17/23 13:00 Sputum, Expectorated/Coughed Respiratory Culture - Preliminary Presumptive C albicans 12/16/23 16:58 Urine, Clean Catch Urine Culture - Final Klebsiella pneumoniae sp pneum 12/16/23 23:55 Mucosa - Nasopharyngeal Respiratory Panel (PCR) - Final 12/16/23 16:35 Urine, Clean Catch Legionella Antigen - Final 12/16/23 16:35 Urine, Clean Catch Streptococcus pneumoniae Antigen (M - Final Radiography Diagnostic Testing: Radiology Impression Echocardiogram 12/16/23 21:10 Interpretation Summary The estimated ejection fraction is 55 %. Unable to assess diastolic dysfunction. Ordering Physician: Michelle Olea Referring Physician: Leidy Beyer Performed By: Hailey Otero RDCS D/C Instructions Discharge Diet: No restrictions Meaningful Use Info Meaningful Use Meaningful Use Diagnoses (Choose all that apply): None applicable Ischemic Stroke Statin Dosing Therapy Reference: STATIN DOSE THERAPY REFERENCE: * Patients > 75 years receive moderate or high dose statin therapy. * Patients 75 years or YOUNGER should receive HIGH intensity statin dose unless contraindicated. You will be required to document reason for non-treatment if statin daily dose does not meet guidelines. HIGH DOSE STATIN THERAPY DAILY Atorvastatin > than or = to 40 mg Rosuvastatin > than or = to 20 mg Amlodipine + Atorvastatin > than or = to 2.5/40 mg Ezetimibe + Simvastatin 10/80 mg Simvastatin 80mg Discharge Plan Admission Admit Date/Time: 12/16/23 20:37 Primary Reason for Your Visit: Pneumonia Attending Provider: Suman Escobar Primary Care Provider: Leidy Beyer Consulting Providers: Michelle Olea Discharge Orders/Prescriptions Prescriptions: New ipratropium bromide 0.02 % Solution 0.5 mg inhalation Q6HWA.RT Qty: 62.5 0RF levofloxacin 500 mg tablet 500 mg PO DAILY Qty: 5 0RF Continued levothyroxine 100 mcg tablet 125 mcg PO DAILY potassium gluconate 600 mg (99 mg) tablet 600 mg PO DAILY clonazepam 1 mg tablet 2 mg PO QHS calcium carbonate-vitamin D3 500 mg-3.125 mcg (125 unit) Tablet 1 tab PO DAILY Centrum Adult 50 Plus 80 mcg tablet,chewable 1 tab PO DAILY tizanidine 4 mg tablet 4 mg PO BID PRN PRN (Reason: muscle spasticity) No Action (DME) Hair Prosthesis See Rx Instructions .Route .MEDSUPPLY Qty: 1 0RF Rx Instructions: As directed Referrals / Follow Up: Pulmonary Medicine [facility] [Provider Group] - 12/27/23 10:15 am Leidy Beyer DO [Primary Care Provider] - Within 2 Weeks Disposition Disposition (needs filled in before D/C Order can be placed): Home, Self Care Charges/Coding Visit Charges Inpatient E&M: 21767 Disch Hosp >30min
--- NOTE | 2023-12-18 13:18 | PHA.DC.MC.R ---
Pharmacy [facility] has performed discharge medication reconciliation and counseling for this patient. The patient's discharge medication list was reviewed for discrepancies and discrepancies were resolved. The patient was counseled on the following discharge medications and changes in medications for homegoing were reviewed. The Reason for Use, instructions for use, and potential side effects were reviewed for all new medications. The patient's questions regarding all of their medications were answered. 1. Ipratropium 0.02% inhalation Q6H 2. Levofloxacin 500 mg PO daily x 5 days The patient was able to verbally demonstrate an understanding of their discharge medications. The patient was counselled on new medications by student life coordinator Blaine. Medications at Discharge Home Medications clonazepam 1 mg tablet 2 mg PO QHS ANXIETY 12/28/20 calcium carbonate 500 mg-vitamin D3 3.125 mcg (125 unit) tablet 1 tab PO DAILY SUPPLEMENT 11/06/22 levothyroxine 100 mcg tablet 125 mcg PO DAILY 12/28/22 Hair Prosthesis #1 ea 03/13/23 potassium gluconate 600 mg (99 mg) tablet 600 mg PO DAILY 05/01/23 multivitamin with minerals-folic acid 80 mcg chewable tablet (Centrum Adult 50 Plus) 1 tab PO DAILY 12/16/23 tizanidine 4 mg tablet 4 mg PO BID PRN PRN muscle spasticity 12/16/23 ipratropium bromide 0.02 % solution for inhalation 0.5 mg (2.5 mL) inhalation Q6HWA.RT #62.5 mL 12/18/23 levofloxacin 500 mg tablet 500 mg PO DAILY #5 tabs 12/18/23
--- NOTE | 2023-12-18 13:19 | CASEMGMT ---
Discharge order noted, pt in need of a nebulizer. Sent referral to [facility] requesting delivery to pt room. Informed pt [facility] will be bringing to pt room. Pt denies any additional questions or concerns and does not have any additional home going needs at this time.
--- NOTE | 2023-12-18 15:04 | CASEMGMT ---
DARWIN sent d/c summary to Lenora Arrieta at [facility]. Tonie KING
== END 2023-12-18 14:29 | disposition home or self-care (01) | DRG 193 ==
LOC: ED 20:15 → PCU 20:47
PROVIDERS: Admitting Provider Family Medicine; Emergency Provider Emergency Medicine; PCP Family Medicine
DX: J18.9 Pneumonia, unspecified organism (principal); E43 Unspecified severe protein-calorie malnutrition; J44.0 Chronic obstructive pulmonary disease with (acute) lower respiratory infection; J90 Pleural effusion, not elsewhere classified; J98.11 Atelectasis; Z68.1 Body mass index [BMI] 19.9 or less, adult; N39.0 Urinary tract infection, site not specified; I10 Essential (primary) hypertension; E03.9 Hypothyroidism, unspecified; K21.00 Gastro-esophageal reflux disease with esophagitis, without bleeding; E78.5 Hyperlipidemia, unspecified; F41.9 Anxiety disorder, unspecified; Z51.5 Encounter for palliative care; Z92.3 Personal history of irradiation; R79.89 Other specified abnormal findings of blood chemistry; Z66 Do not resuscitate; Z92.21 Personal history of antineoplastic chemotherapy; Z87.891 Personal history of nicotine dependence; Z79.890 Hormone replacement therapy; Z79.82 Long term (current) use of aspirin; Z79.2 Long term (current) use of antibiotics; B96.1 Klebsiella pneumoniae [K. pneumoniae] as the cause of diseases classified elsewhere; Z86.73 Personal history of transient ischemic attack (TIA), and cerebral infarction without residual deficits; Z85.118 Personal history of other malignant neoplasm of bronchus and lung
CPT/HCPCS: 36415; 71045; 71275; 74177; 80048; 80053; 80061; 80076; 81001; 83605; 83690; 83735; 84100; 84145; 84439; 84443; 84484; 85025; 85379; 87040; 87070; 87077; 87086; 87088; 87186; 87205; 87449; 87633; 93005; 93306; 94640; 94668; 97162; 97166; 97530; 97802; 99285; J7030; Q9967; A4216; J2405

== ENCOUNTER → 2024-02-28 | Outpatient (CLI) | payer MEDICARE, MEDICAID, SELFPAY ==
--- NOTE | 2024-02-28 15:09 | CT_ITS ---
STUDY: CT CHEST, ABDOMEN T PELVIS WITH CONTRAST REASON FOR EXAM: Female, 73 years old. R FLANK PAIN/HX LUNG CA RADIATION DOSAGE (If Supplied By Facility): CTDIvol = ( 8.64 ) mGy, DLP = ( 460.76 ) mGycm TECHNIQUE: Transaxial imaging was performed following intravenous administration of 100mL Isovue 300. The protocol utilizes one or more of the following dose reduction techniques: automated exposure control, adjustment of mA and/or kV according to patient size,and/or use of iterative reconstruction technique. COMPARISON: March 06, 2023 FINDINGS: CHEST Right lung volume loss with moderate pleural effusion and consolidation/infiltrate. Multiple right apical blebs. There is no demonstrated pleural abnormality. Normal heart and pericardium. Right shifted mediastinum. Normal hilar regions. Normal unenhanced pulmonary arteries. Normal aorta arch. Mild ectasia of the distal descending thoracic aorta measuring up to 3.3 cm. Normal osseous structures. ABDOMEN 4 mm hypoattenuated right hepatic nodule in the liver. Normal gallbladder and extrahepatic biliary system. Normal spleen. Normal pancreas. Normal bilateral adrenal glands. Small bilateral renal cysts. Normal visualized stomach. Normal small intestine. Fecal retention in the colon. The appendix is not visualized. Calcified abdominal aorta. Normal inferior vena cava. Normal retroperitoneum. Normal abdominal wall. Normal osseous structures. PELVIS Normal urinary bladder. There is no pelvic fluid. There is no pelvic lymphadenopathy or mass lesion. Normal visualized pelvic arteries. CT/CT Chest, Abd, Pel w/Contrast IMPRESSION: Diffuse colonic fecal retention. Bilateral small renal cysts. Small hepatic hypoattenuated nodule, likely cystic in nature. Right lung volume loss with moderate pleural effusion and consolidation/infiltrate. Multiple right apical blebs. Electronically Signed: Fernando Moody DO at 16:33 EDT ,
[2024-02-28 16:14] LABS: CREATININE FINGERSTICK < 1.0 mg/dL (0.55-1.02); EGFR FINGERSTICK > 60.0000 mL/min (>60)
== END | disposition home or self-care (01) ==
PROVIDERS: PCP Family Medicine; Referring Provider Family Medicine; Visit Provider Family Medicine
DX: Z01.812 Encounter for preprocedural laboratory examination (principal); C34.2 Malignant neoplasm of middle lobe, bronchus or lung; R10.9 Unspecified abdominal pain
CPT/HCPCS: 71260; 74177; Q9967

== ENCOUNTER → 2024-08-19 | Outpatient (CLI) | payer MEDICARE, MEDICAID, SELFPAY ==
[2024-08-19 18:21] LABS: Absolute Lymphocyte Count 1.61 X10^3/uL (0.83-4.51); Absolute Neutrophil Count 3.8 X10^3/uL (2.0-7.7); Basophil# 0.06 X10^3/uL; Eosinophil# 0.11 X10^3/uL; Eosinophils% 1.8 % (0-5); Hemoglobin 14.4 g/dL (12.0-15.0); Lymphocyte # 1.61 X10^3/ul (0.83-4.51); Lymphocyte % 26.2 % (19-41); Mean Corp Hgb Conc 33.5 g/dL (32-36); Mean Corpuscular Hgb 30.2 pg (27.0-32.0); Mean Corpuscular Volume 90.1 fL (81-99); Monocyte# 0.54 X10^3/uL; Monocyte% 8.8 % (0-10); NRBC Flagged by Analyzer 0 % (0-5); Neutrophil # 3.81 X10^3/uL (2.7-7.7); Platelet Count 256 K/mm3 (150-450); RBC Distribution Width CV 12.7 % (11.6-14.6); RBC Distribution Width SD 41.8 fl (35.1-43.9); Red Blood Count 4.77 M/mm3 (4.2-5.4); White Blood Count 6.1 K/mm3 (4.4-11.0)
[2024-08-19 19:15] LABS: ALB/GLOB Ratio 1.1 RATIO (0.9-2.4); AST(SGOT) 19 U/L (<=31); Alanine Aminotransfer ALT/SGPT 7 U/L (<=34); Albumin, Serum 4.3 g/dL (3.4-4.8); Alkaline Phosphatase 94 U/L (35-104); Anion Gap 12 (5-15); BUN 11 mg/dL (4-19); BUN/Creat Ratio 15.9 RATIO (10-20); Calcium,Total 9.8 mg/dL (7.6-11.0); Carbon Dioxide 26.1 mmol/L (21.0-32.0); Chloride 100 mmol/L (98-108); Creatinine, Serum 0.66 mg/dL (0.70-1.20); EST Glomerular Filtration Rate 93 (>60); Globulin 3.9 g/dL (2.2-4.2); Glucose 89 mg/dL (70-99); Potassium 3.8 mmol/L (3.3-5.1); Protein, Total 8.1 g/dL (5.9-8.4); Sodium Level 138 mmol/L (133-145); Total Bilirubin 0.61 mg/dL (0.00-1.30)
== END | disposition home or self-care (01) ==
LOC: BFHLAB 15:50
PROVIDERS: PCP Family Medicine; Visit Provider Family Medicine
DX: C34.2 Malignant neoplasm of middle lobe, bronchus or lung (principal); J90 Pleural effusion, not elsewhere classified; E05.00 Thyrotoxicosis with diffuse goiter without thyrotoxic crisis or storm; R53.83 Other fatigue
CPT/HCPCS: 36415; 80053; 84439; 84443; 85025

== ENCOUNTER → 2024-09-10 | Outpatient (CLI) | payer MEDICARE, MEDICAID, SELFPAY ==
--- NOTE | 2024-09-10 09:24 | CT_ITS ---
PROCEDURE: CHEST WITH CONTRAST 09/10/2024 REASON FOR EXAM: HX LUNG CA/PLEURAL EFFUSION TECHNIQUE: Prone and supine chest CT with intravenous contrast, high resolution CT (HRCT) protocol. Coronal and Sagittal reconstruction series were provided. CONTRAST: Isovue 370 VOLUME: 100 ML 18 gauge IV One or more dose reduction techniques were used (e.g., Automated exposure control, adjustment of the mA and/or kV according to patient size, use of iterative reconstruction technique). RADIATION DOSE SUMMARY: CTDlvol: 7.1 mGy DLP: 252.3 mGycm COMPARISON: None available FINDINGS: Hardware: None Lymph nodes: No lymphadenopathy. Heart and Vasculature: The heart is normal in size. The great vessels are normal in size and caliber. Lungs and Airways: Central airways are patent. There is complete atelectasis of the right lower lobe. Patchy opacities within the right upper lobe, and right lower lobe likely representing atelectasis or multifocal infection or underlying tumor. Bullous changes within the right apical lung. Pleura: Moderate to large right-sided pleural effusion. Upper Abdomen: Partially visualized upper abdomen demonstrates no acute abnormality. Bones: No aggressive osseous lesions. No acute fractures. CT/Chest WITH Contrast IMPRESSION: *There is probable near-complete atelectasis of the right lower lobe with patch y opacities within the right upper lobe and right middle lobe possibly representing atelectasis, or infection or underlying tumor . *Small to moderate right-sided pleural effusion. *Bullous changes within the right apical lung. Reading Location: [facility]
== END | disposition home or self-care (01) ==
LOC: CT 09:23
PROVIDERS: PCP Family Medicine; Referring Provider Family Medicine; Visit Provider Family Medicine
DX: C34.2 Malignant neoplasm of middle lobe, bronchus or lung (principal); J90 Pleural effusion, not elsewhere classified
CPT/HCPCS: 71260; Q9967

== ENCOUNTER → 2024-09-30 | Outpatient (CLI) | payer MEDICARE, MEDICAID, SELFPAY ==
--- NOTE | 2024-09-30 07:00 | PET_ITS ---
EXAM: PET/CT Study CLINICAL HISTORY: 74 y/o F with POSSIBLE RECURRENT TUMORS R LUNG COMPARISON: CT chest 09/11/2024, PET-CT 04/27/2023. TECHNIQUE: PROCEDURE: Following the intravenous administration of radionucleotide, image acquisition on a dedicated PET/CT unit was performed at one hour post injection. A preliminary CT study encompassing the Skull base, neck, chest, abdomen, pelvis, and proximal thighs was performed for purposes of attenuation correction and anatomic localization. The proximal thighs were also included. The patient's blood glucose level was 108 mg/dL (allowable range: 50-180 mg/dL). RADIOPHARMACEUTICAL: 12.6 mCi 18F-FDG (Fluorodeoxyglucose F18) IV was injected into patient. FINDINGS: Physiologic uptake: There may be expected metabolic uptake within the brain, tongue and floor of the mouth and larynx/vocal cords, heart, ayaka (many normal individuals have hilar uptake in less than 3 nodes with mildly avid hilar nodes less than 2.7 SUV), liver and spleen, system, and GI tract and symmetric muscle uptake. FDG AVID AND NON-AVID LESIONS. Reported avid SUV values (g/mL*) are maximum SUV. Average liver parenchyma SUV: 2.2 HEAD/NECK: No suspicious hypermetabolic lesion. CHEST: Within the anterior right middle lobe, there is an area of consolidation demonstrating hypermetabolic activity, demonstrating a maximum SUV of 3.9. No significant hypermetabolic uptake within the right pleural effusion. ABDOMEN: No suspicious hypermetabolic lesion. PELVIS: No suspicious hypermetabolic lesion. Additional CT findings: Edentulism. Severe coronary artery, thoracic aortic and aortoiliac calcifications. Persistent bullous emphysema of the right apical lung with rightward mediastinal shift. Moderate- sized right pleural effusion and near-complete consolidation of the right middle and lower lobes. Moderate-sized right pleural effusion. Ectasia of the suprarenal abdominal aorta. Left renal calcifications, likely vascular. Colonic diverticulosis. Thoracolumbar spondylosis. PET/PET/CT Tumor Base -Thigh Init IMPRESSION: Persistent area of consolidation demonstrating hypermetabolic activity within t he right middle lobe, which remains indeterminate in etiology and may represent recurrent/residual neoplasm, pneumonitis (includi ng radiation pneumonitis) or infection. Again, correlation with tissue biopsy is recommended. Please note the low-dose CT scan was performed to facilitate PET image reconstr uction and anatomic localization and does not replace a diagnostic CT. Any diagnostic CT requested and performed at the time of the PET will be reported separately. Reading Location: [id number]
== END | disposition home or self-care (01) ==
LOC: ONC 06:32
PROVIDERS: PCP Family Medicine; Referring Provider Family Medicine; Visit Provider Family Medicine
DX: R91.8 Other nonspecific abnormal finding of lung field (principal); C34.2 Malignant neoplasm of middle lobe, bronchus or lung
CPT/HCPCS: 78815; A9552

== ENCOUNTER → 2024-10-15 | Outpatient (CLI) | payer MEDICARE, MEDICAID, SELFPAY ==
--- NOTE | 2024-10-15 07:48 | US_ITS ---
PROCEDURE: THORACENTESIS W US 10/15/2024 REASON FOR EXAM: PLEURAL EFFUSION TECHNIQUE: Procedure: Following informed consent, and using standard sterile technique, a right-sided thoracentesis was performed under ultrasound guidance, via a posterior approach. 2% lidocaine local anesthesia was followed by placement of a 5 Faroese catheter into the pleural fluid collection. Approximately 450 mL keyla colored clear fluid was successfully removed. Of this, 120 mL was sent to the laboratory for evaluation. No complication was encountered, and the patient left the department in good condition, without significant complaint. COMPARISON: None. US/Thoracentesis W US IMPRESSION: Successful ultrasound-guided right thoracentesis. Laboratory results pending. Reading Location: [place] [id number]
[2024-10-15 08:44] LABS: Prothrombin Time (Protime)PT. 13.3 SECONDS (11.7-14.9)
[2024-10-15 08:48] VITALS: BP 169/94; PULSE 101; RESP 16; TEMP 36.2; O2SAT 96
[2024-10-15] MEDS: Lidocaine 2% (20 ml mdv) 20 ML Vial INFILT (08:56)
[2024-10-15 08:58] VITALS: BP 162/106; PULSE 101; RESP 16; O2SAT 98
--- NOTE | 2024-10-15 09:00 | FLU_PTH ---
PATIENT: AMOL RUBIO LOC: [facility]#:[id number] AGE/SX: 74/F ROOM: RE10/15/[address]: SHAHLA Sharp : 1950 BED: DIS: 10/15/2024 SPEC #: [id number] RECD: 10/15/24 09:29 STATUS: NIYAH REGarfield #: [id number] EYAL: 10/15/24 09:[address]: Ese Marin NP DEPT: CYTOLOGY RECD BY: Homero Batista ENTERED: 10/15/24 13:14 SP TYPE: Fluid OTHR DR: Dr. Leidy Beyer DO Tissues: A - THORACIC FLUID Procedures: Immunohistochemical Stains Special Stain Group II Surgery Specimen Level IV Cytospin Fluid IHC Stain ADDITIONAL HEADER OPERATION: Thoracentesis PRE-OP DIAGNOSIS: Pleural effusion TISSUE SUBMITTED: A- Thoracentesis fluid for cytology DIAGNOSIS CYTOLOGY A. Pleural effusion, thoracentesis, cytospin and cellblock: * No malignant cells identified. * Reactive mesothelial cells present - see note and Comment. * Note: IHCs were performed supporting the above diagnosis. * Positive: CK5/6, CD68, Calretinin, WT-1 (focal) * Negative: p40, p63, BerEp4, MOC31 COMMENT Selected slides/images were reviewed in intradepartmental consultation by Dr Tim Moreland (thoracic pathology division, [facility]). CYTOLOGY STUDY Slides are reviewed. All matched controls reacted appropriately. These tests were developed and their performance characteristics determined by [facility] and [facility] Dept of Pathology. They may not have been cleared or approved by the [place]. Food and Drug Administration. The FDA has determined that such clearance or approval is not necessary.? The above immunohistochemical/dualISH?markers are ordered and reviewed by the Pathologist. CYTOLOGY GROSS A. Received is 100 ml of cloudy-yellow fluid labeled with the patient's name and and designated per the requisition as Thoracentesis fluid. Submitted for cytology (cytospin) and cell block preparation. Mr 10/15/2024 CPT: 58954, [id number], [id number]
[2024-10-15 09:01] LABS: LDH 139 U/L (84-246)
[2024-10-15 09:05] VITALS: BP 161/106; PULSE 102; RESP 16; O2SAT 97
[2024-10-15 09:05] LABS: Protein, Total 7.7 g/dL (5.9-8.4)
[2024-10-15 09:32] LABS: Cytology, Body Fluid / CSF SEE PATHOLOGY REPORT
[2024-10-15 10:12] LABS: Body Fluid Mononuclear WBC % 89.4 %; Body Fluid Polynuclear WBC # 0.475 10^3/uL; Body Fluid Polynuclear WBC % 10.6 %; Body Fluid Total Cells Counted 4.537 10^3/ul; White Blood Count/Body Fluid 4.495 10^3/uL
[2024-10-15 10:14] LABS: Auto B Fluid Analyzer BKGD Ct COUNTS W/IN LIMITS (W/IN LIMITS); Source- Body Fluid PLEURAL FLUID
[2024-10-15 10:15] LABS: Appearance/Body Fluid SL CLDY; Color/Body Fluid YELLOW
[2024-10-15 10:37] LABS: Red Cell Count/Body Fluid 505 /mm3
[2024-10-15 10:44] LABS: Lymphocytes 65 %; Macrophages 14 %; Neutrophil (Segs) 21 %
[2024-10-15 10:45] LABS: LDH,Body Fluid 135 Units/L (Not Establ.); Protein, Body Fluid 5.6 g/dL (Not Establ.)
[2024-10-15 10:47] LABS: Body Fluid QC Type(s) BF1Q,BF2Q
[2024-10-16 08:11] LABS: Pathologist Comment/Body Fluid Reviewed
== END | disposition home or self-care (01) ==
PROVIDERS: Radiology Nuclear Radiology; PCP Family Medicine; Referring Provider Nurse Practitioner Acute Care; Visit Provider Nurse Practitioner Acute Care
DX: Z01.818 Encounter for other preprocedural examination (principal); J90 Pleural effusion, not elsewhere classified; R06.02 Shortness of breath
CPT/HCPCS: 32555; 36415; 83615; 84155; 84157; 85610; 85730; 87070; 87075; 87205; 88108; 88305; 88313; 88341; 88342; 89050

== ENCOUNTER → 2024-11-20 | Outpatient (CLI) | payer MEDICARE, MEDICAID, SELFPAY ==
--- NOTE | 2024-11-20 12:32 | RAD_ITS ---
PROCEDURE: CERV SPINE 4 OR 5 VIEWS 11/20/2024 REASON FOR EXAM: CERVICALGIA TECHNIQUE: CERV SPINE 4 OR 5 VIEWS COMPARISON: None. FINDINGS: Grade 1 retrolisthesis of C4 on C5 measuring 4.2 mm. There are diffuse spondylotic changes. Findings are demonstrated to by diffuse disc space narrowing, osteophyte formation and degenerative endplate sclerosis. There is diffuse facet joint arthropathy with secondary bilateral neural foramina narrowing. No fracture or dislocation is seen. No aggressive lytic or blastic bony lesion is noted. RAD/Cerv Spine 4 or 5 Views IMPRESSION: Spondylosis. Grade 1 anterolisthesis of C4 on C5. No radiographic evidence of an acute bone abnormality. Reading Location: [facility]
[2024-11-20 16:05] LABS: CPK Total, Creatine Kinase 59 U/L (24-195); Magnesium 2.5 mg/dL (1.5-2.2)
[2024-11-20 16:12] LABS: AST(SGOT) 19 U/L (<=31); Alanine Aminotransfer ALT/SGPT < 5 U/L (<=34); Albumin, Serum 4.2 g/dL (3.4-4.8); Alkaline Phosphatase 86 U/L (35-104); Anion Gap 14 (5-15); BUN 13 mg/dL (4-19); BUN/Creat Ratio 18.1 RATIO (10-20); Carbon Dioxide 23.6 mmol/L (21.0-32.0); Chloride 100 mmol/L (98-108); Creatinine, Serum 0.71 mg/dL (0.70-1.20); EST Glomerular Filtration Rate 89 (>60); Globulin 4.2 g/dL (2.2-4.2); Glucose 91 mg/dL (70-99); Potassium 4.1 mmol/L (3.3-5.1); Protein, Total 8.4 g/dL (5.9-8.4); Sodium Level 137 mmol/L (133-145); Total Bilirubin 0.56 mg/dL (0.00-1.30)
== END | disposition home or self-care (01) ==
PROVIDERS: PCP Family Medicine; Visit Provider Family Medicine
DX: R25.2 Cramp and spasm (principal); E05.00 Thyrotoxicosis with diffuse goiter without thyrotoxic crisis or storm; M54.2 Cervicalgia
CPT/HCPCS: 36415; 72050; 80053; 82550; 83735; 84439; 84443

== ENCOUNTER → 2024-12-29 | Outpatient (CLI) | payer MEDICARE, MEDICAID, SELFPAY ==
--- NOTE | 2024-12-29 12:33 | CT_ITS ---
PROCEDURE: CHEST WITH CONTRAST 12/29/2024 REASON FOR EXAM: LYMPHADENOPATHY TECHNIQUE: CHEST WITH CONTRAST Coronal and Sagittal reconstruction series were provided. CONTRAST: Isovue-300 VOLUME: 95 mL One or more dose reduction techniques were used (e.g., Automated exposure control, adjustment of the mA and/or kV according to patient size, use of iterative reconstruction technique). RADIATION DOSE SUMMARY: CTDlvol: 7.5 mGy DLP: 167.49 mGycm COMPARISON: Prior study dated September 10, 2024. FINDINGS: Hardware: None Lymph nodes: No significant mediastinal lymphadenopathy is seen. Heart and Vasculature: Coronary artery calcification. Lungs and Airways: Once again, there is marked degree of loss of volume in the right hemithorax with almost complete collapse of the right lower lobe and right middle lobe. Persistent small right pleural effusion although this has improved since prior study. Persistent bullous changes and scarring in the right upper lobe. Small amount of fluid is seen in the right major fissure. Pleura: Persistent small right pleural effusion although this has improved as compared to prior study. Upper Abdomen: Unremarkable Bones: Degenerative changes of the thoracic spine. CT/Chest WITH Contrast IMPRESSION: Coronary artery calcification (CAC) is is present Persistent volume loss in the right hemithorax as described with persistent vol ume loss in the right lower lobe as well as in the right upper and right middle lobes with the chronic scarring and bullous format ion in the right upper lobe. Residual small pleural effusion as compared to prior study. Reading Location: [facility]
--- OUTSIDE RECORDS SUMMARY | 2024-12-29 22:20 | XMS RPT_ITS | CCD ---
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 in limb] 03-19-2023 Episodic Other connective tissue disease (1 source) Cramp and spasm; Translations: [Cramp and spasm] Onset: 5 Episodic Other liver diseases (20 sources) Cardiac enzymes abnormal; Translations: [Abnormal levels of other serum enzymes] 12-29-2020 Episodic Other lower respiratory disease (1 source) Persistent cough; Translations: [Cough present for greater than 3 weeks] Episodic Other lower respiratory disease (16 sources) Dyspnea; Translations: [Shortness of breath] Episodic Other lower respiratory disease (20 sources) Hemoptysis; Translations: [Hemoptysis] 11-06-2022 Episodic Other lower respiratory disease (7 sources) Lung mass; Translations: [Other nonspecific abnormal finding of lung field] 11-06-2022 Episodic Other lower respiratory disease (15 sources) Hemoptysis; Translations: [Hemoptysis, unspecified] 11-06-2022 Episodic Other lower respiratory disease (8 sources) Other nonspecific abnormal finding of lung field; Translations: [Swelling, mass, or lump in chest] Onset: 5 11-06-2022 Episodic Other lower respiratory disease (2 sources) Shortness of breath; Translations: [SOB (shortness of breath)] Onset: 3 Episodic Other lower respiratory disease (20 sources) Cough; Translations: [Cough] 12-28-2022 Episodic Other nervous system disorders (20 sources) Paresthesia of left upper limb; Translations: [Paresthesia of skin] 01-06-2021 Episodic Other nervous system disorders (12 sources) Abnormal gait; Translations: [Unsteadiness on feet] 10-10-2024 Episodic Other screening for suspected conditions (not mental disorders or infectious disease) (20 sources) Increased lactic acid level; Translations: [Other specified abnormal findings of blood chemistry] Episodic Comment on above: This is a 72-year-ol d female currently in remission for lung cancer who did show some PET avidity within the rectum during routine surveillance imaging. She describes some active hemorrhoidal disease during this image acquisition. Still, her last colonoscopy was 8 years ago and given her recent history I agree with the belief that she requires a dedicated, diagnostic study to confirm there is nothing more within the rectum besides hemorrhoidal inflammation. Mrs. Mckeon readily accepts the recommendation to proceed diagnostic colonoscopy and we spent part of the visit discussing bowel prep instructions. We will look to schedule this at his first mutually agreeable date Other upper respiratory infections (1 source) Viral upper respiratory tract infection; Translations: [Acute upper respiratory infection, unspecified] Episodic Pleurisy; pneumothorax; pulmonary collapse (20 sources) Atelectasis; Translations: [Atelectasis] 11-06-2022 Episodic Pneumonia (except that caused by tuberculosis or sexually transmitted disease) (8 sources) Pneumonia; Translations: [Pneumonia, unspecified organism] 12-26-2023 Episodic Residual codes; unclassified (8 sources) Other specified postprocedural states; Translations: [History of removal of tunneled central venous catheter (CVC) with port] 12-26-2023 Episodic Comment on above: Patient presents 1 w red devil following Port-A-Cath removal in clinic. Her site is appropriate with only mild ecchymotic change. There are no signs of infection. She is encouraged to apply triple antibiotic ointment to the incision once daily to facilitate healing. Further, upon her announcing that she is picking up more at work I have advised her to keep her wound site covered with a dressing in the presence of dirt or abrasive forces. She confirms this is already her practice. Respiratory failure; insufficiency; arrest (adult) (20 sources) Chronic hypoxemic respiratory failure; Translations: [Chronic respiratory failure with hypoxia] 11-06-2022 Chronic Screening and history of mental health and substance abuse codes (20 sources) Ex-smoker; Translations: [Personal history of nicotine dependence] 11-16-2022 Episodic Secondary malignancies (17 sources) Regional lymph node metastasis present ; Translations: [Secondary and unspecified malignant neoplasm of lymph node, unspecified] 12-14-2022 Chronic Secondary malignancies (20 sources) Secondary and unspecified malignant neoplasm of lymph node, unspecified; Translations: [Secondary and unspecified malignant neoplasm of lymph nodes, site unspecified] 12-14-2022 Chronic Septicemia (except in labor) (20 sources) Sepsis; Translations: [Sepsis, unspecified organism] Episodic Skin and subcutaneous tissue infections (20 sources) Cellulitis; Translations: [Cellulitis, unspecified] 01-15-2023 Episodic Superficial injury; contusion (20 sources) Contusion of hand; Translations: [Contusion of right hand, initial encounter] 03-22-2021 Episodic Thyroid disorders (20 sources) Hypothyroidism; Translations: [Hypothyroidism, unspecified] 12-29-2020 Chronic Unclassified (1 source) Cough, unspecified; Translations: [Cough, unspecified] Onset: Urinary tract infections (20 sources) Urinary tract infectious disease; Translations: [Urinary tract infection, site not specified] Episodic Results Test Name Value Interpretation Reference Range Facility Anion gap in Serum or Plasma Ordered By: Michael Roberson on 11-20-2024 Anion gap [Moles/Vol] 14 mmol/L - [facility] BUN/creatinine ratioOrdered By: Michael Roberson on 11-20-2024 Urea nitrogen/Creatinine [Mass ratio] 18.1 mg/mg 03-23 [facility] Bilirubin, totalOrdered By: Michael Roberson on 11-20-2024 Bilirubin [Mass/Vol] 0.56 mg/dL 0.00-1.30 [facility] CPK Total, Creatine Kinaseon 11-20-2024 CPK TOTAL 59 U/L Normal - [facility] Comment on above: Performed By: #### L 501.9556, L500.4050, L501.3620, L501.5200, L506.0400 ####[facility] [address] [place], [place], [address] Carbon dioxide, total [Moles /volume] in Central venous bloodOrdered By: Michael Roberson on 11-20-2024 CO2 [Moles/Vol] 23.6 mmol/L 21.0-32.0 [facility] Cerv Spine 4 or 5 Viewson Cerv Spine 4 or 5 Views [facility] Imaging Services [address] [place], [place] [id number] Cerv Spine 4 or 5 Views MR#: [id number] Acct: [id number] Name: AMOL MCKEON Rep #: [id number] : 1950 F 74 From: Martin garcia MD PCP: Dr. Leidy Beyer DO Status: REG CLI Study: Cerv Spine 4 or 5 Views Date of Exam: 11/20/24 Exam# [id number] Ordering Dr: Michael Roberson DO PROCEDURE: CERV SPINE 4 OR 5 VIEWS 11/20/2024 REASON FOR EXAM: CERVICALGIA TECHNIQUE: CERV SPINE 4 OR 5 VIEWS COMPARISON: None. FINDINGS: Grade 1 retrolisthesis of C4 on C5 measuring 4.2 mm. There are diffuse spondylotic changes. Findings are demonstrated to by diffuse disc space narrowing, osteophyte formation and degenerative endplate sclerosis. There is diffuse facet joint arthropathy with secondary bilateral neural foramina narrowing. No fracture or dislocation is seen. No aggressive lytic or blastic bony lesion is noted. RAD/Cerv Spine 4 or 5 Views IMPRESSION: Spondylosis. Grade 1 anterolisthesis of C4 on C5. No radiographic evidence of an acute bone abnormality. Reading Location: [place] [address] CC: Dr. Leidy Beyer DO; Dr. Michael Roberson DO Account Services Specialist: Signed Normal [facility] Chloride assayOrdered By: Gogo Roberson on 11-20-2024 Chloride [Moles/Vol] 100 mmol/L 98-108 [facility] Comprehensive Metabolic Prof ilon 11-20-2024 Albumin [Mass/Vol] 4.2 g/dL Normal 3.4-4.8 [facility] Comment on above: Performed By: #### L 501.9520, L500.4050, L501.3620, L501.5200, L506.0400 ####[facility] [address] [place], [address] Albumin/Globulin [Mass ratio] 1.0 {ratio} Normal 0.9-2.4 [facility] Comment on above: Performed By: #### L 501.9520, L500.4050, L501.3620, L501.5200, L506.0400 ####[facility] [address] [place], [address] ALK PHOS 86 U/L Normal 35-104 [facility] Comment on above: Performed By: #### L 501.9520, L500.4050, L501.3620, L501.5200, L506.0400 ####[facility] [address] [place], [address] ALT [Catalytic activity/Vol] U/L Normal <=34 [facility] Comment on above: Performed By: #### L 501.9520, L500.4050, L501.3620, L501.5200, L506.0400 ####[facility] [address] [place], [address] AST [Catalytic activity/Vol] 19 U/L Normal <=31 [facility] Comment on above: Performed By: #### L 501.9520, L500.4050, L501.3620, L501.5200, L506.0400 ####[facility] [address] [place], [address] Bilirubin [Mass/Vol] 0.56 mg/dL Normal 0.00-1.30 [facility] Comment on above: Performed By: #### L 501.9520, L500.4050, L501.3620, L501.5200, L506.0400 ####[facility] [address] [place], [address] BUN/CRE 18.1 RATIO Normal 10-20 [facility] Comment on above: Performed By: #### L 501.9520, L500.4050, L501.3620, L501.5200, L506.0400 ####[facility] [address] [place], [address] Calcium [Mass/Vol] 10.0 mg/dL Normal 7.6-11.0 [facility] Comment on above: Performed By: #### L 501.9520, L500.4050, L501.3620, L501.5200, L506.0400 ####[facility] [address] [place], [address] Chloride [Moles/Vol] 100 mmol/L Normal 98-108 [facility] Comment on above: Performed By: #### L 501.9520, L500.4050, L501.3620, L501.5200, L506.0400 ####[facility] [address] [place], [address] CO2 [Moles/Vol] 23.6 mmol/L Normal 21.0-32.0 [facility] Comment on above: Performed By: #### L 501.9520, L500.4050, L501.3620, L501.5200, L506.0400 ####[facility] [address] [place], [address] Creatinine [Mass/Vol] 0.71 mg/dL Normal 0.70-1.20 [facility] Comment on above: Performed By: #### L 501.9520, L500.4050, L501.3620, L501.5200, L506.0400 ####[facility] [address] [place], [address] GAP 14 Normal 5-15 [facility] Comment on above: Performed By: #### L 501.9520, L500.4050, L501.3620, L501.5200, L506.0400 ####[facility] [address] [place], [address] GFR/1.73 sq M.predicted among non-blacks MDRD (S/P/Bld) [Vol rate/Area] 89 mL/min/{1.73_m2} Normal >60 [facility] Comment on above: Result Comment: mL/m in/1.73m2 CKD-EPI Creatinine Equation (2020) Performed By: #### L 501.9520, L500.4050, L501.3620, L501.5200, L506.0400 ####[facility] [address] [place], [address] Globulin (S) [Mass/Vol] 4.2 g/dL Normal 2.2-4.2 [facility] Comment on above: Performed By: #### L 501.9520, L500.4050, L501.3620, L501.5200, L506.0400 ####[facility] [address] [place], [address] Glucose [Mass/Vol] 91 mg/dL Normal 70-99 [facility] Comment on above: Performed By: #### L 501.9520, L500.4050, L501.3620, L501.5200, L506.0400 ####[facility] [address] [place], [address] Potassium [Moles/Vol] 4.1 mmol/L Normal 3.3-5.1 [facility] Comment on above: Performed By: #### L 501.9520, L500.4050, L501.3620, L501.5200, L506.0400 ####[facility] [address] [place], [address] Sodium [Moles/Vol] 137 mmol/L Normal 133-145 [facility] Comment on above: Performed By: #### L 501.9520, L500.4050, L501.3620, L501.5200, L506.0400 ####[facility] [address] [place], [address] T PROT 8.4 g/dL Normal 5.9-8.4 [facility] Comment on above: Performed By: #### L 501.9520, L500.4050, L501.3620, L501.5200, L506.0400 ####[facility] [address] [place], [address] Urea nitrogen [Mass/Vol] 13 mg/dL Normal 4-19 [facility] Comment on above: Performed By: #### L 501.9520, L500.4050, L501.3620, L501.5200, L506.0400 ####[facility] [address] [place], [address] Glomerular filtration rate ( GFR) estimation/1.73 sq m using serum, plasma, or whole bOrdered By: Michael Roberson on 11-20-2024 GFR/1.73 sq M.predicted among non-blacks MDRD (S/P/Bld) [Vol rate/Area] 89 mL/min/{1.73_m2} >60 [facility] Comment on above: mL/min/1.73m2 CKD-EP I Creatinine Equation (2020) Laboratory - Chemistry and C hemistry - challengeOrdered By: Michael Roberson on 11-20-2024 AST [Catalytic activity/Vol] 19 U/L <32 [facility] Magnesiumon 11-20-2024 Magnesium [Mass/Vol] 2.5 mg/dL High 1.5-2.2 [facility] Comment on above: Performed By: #### L 501.9520, L500.4050, L501.3620, L501.5200, L506.0400 ####[facility] [address] [place], [address] Magnesium measurement (mass/ volume)Ordered By: Michael Roberson on 11-20-2024 Magnesium (Unsp spec) [Mass/Vol] 2.5 mg/dL High 1.5-2.2 [facility] Potassium measurement (mass/ volume)Ordered By: Michael Roberson on 11-20-2024 Potassium (Unsp spec) [Mass/Vol] 4.1 mmol/L 3.3-5.1 [facility] Serum creatinine measurement (mass/volume)Ordered By: Michael Roberson on 11-20-2024 Creatinine [Mass/Vol] 0.71 mg/dL 0.70-1.20 [facility] Serum globulin measurementOr dered By: Michael Roberson on 11-20-2024 Globulin (S) [Mass/Vol] 4.2 g/dL 2.2-4.2 [facility] Serum glucose measurement (m ass/volume)Ordered By: Michael Roberson on 11-20-2024 Glucose [Mass/Vol] 91 mg/dL 70-99 [facility] Serum or plasma alanine waters otransferase (ALT) measurementOrdered By: Michael Roberson on 11-20-2024 ALT [Catalytic activity/Vol] U/L <35 [facility] Serum or plasma albumin eun urement (mass/volume)Ordered By: Michael Roberson on 11-20-2024 Albumin [Mass/Vol] 4.2 g/dL 3.4-4.8 [facility] Serum or plasma albumin/glob ulin mass ratioOrdered By: Michael Roberson on 11-20-2024 Albumin/Globulin [Mass ratio] 1.0 {ratio} 0.9-2.4 [facility] Serum or plasma alkaline adonis sphatase measurementOrdered By: Michael Roberson on 11-20-2024 ALP [Catalytic activity/Vol] 86 U/L 35-104 [facility] Serum or plasma calcium eun urement (mass/volume)Ordered By: Michael Roberson on 11-20-2024 Calcium [Mass/Vol] 10.0 mg/dL 7.6-11.0 [facility] Serum or plasma creatine kin ase activityOrdered By: Michael Roberson on 11-20-2024 CK [Catalytic activity/Vol] 59 U/L 24-195 [facility] Serum or plasma urea nitroge n measurement (mass/volume)Ordered By: Michael Roberson on 11-20-2024 Urea nitrogen [Mass/Vol] 13 mg/dL 09-20 [facility] Sodium levelOrdered By: Michael Roberson on 11-20-2024 Sodium [Moles/Vol] 137 mmol/L 133-145 [facility] T4 Free Directon 11-20-2024 T4 FREE DIRECT 1.00 ng/dL Normal 0.76-1.46 [facility] Comment on above: Performed By: #### L 501.9520, L500.4050, L501.3620, L501.5200, L506.0400 ####[facility] [address] [place], [address] T4 freeOrdered By: Michael damon on 11-20-2024 Free T4 [Mass/Vol] 1.00 ng/dL 0.76-1.46 [facility] TSH DL <= 0.005 mIU/L QnOrde red By: Michael Roberson on 11-20-2024 TSH Qn 11.900 uIU/mL High 0.300-4.20 0 [facility] Thyroid Stim Hormone (TSH)on 11-20-2024 TSH 11.900 uIU/mL High 0.300-4.20 0 [facility] Comment on above: Performed By: #### L 501.9520, L500.4050, L501.3620, L501.5200, L506.0400 ####[facility] [address] [place], [place], [address] Total proteinOrdered By: Juani Roberson on 11-20-2024 Protein [Mass/Vol] 8.4 g/dL 5.9-8.4 [facility] Pulmonary Visit Reporton Pulmonary Visit Report [facility] [place] [address] [place] [address] OFFICE VISIT Date of Service: 11/04/24 MR#: [id number] Acct: [id number] Name: AMOL MCKEON Rep #: [id number] : 1950 Provider: SHAHLA Marin Age/Sex: 74/F Location: [facility] Status: Signed Assessment and Plan Assessment and Plan (1) Mediastinal lymphadenopathy: Status: Acute Plan: Reviewed this case with radiation oncologist Dr. Fuchs and Dr Bobby Arciniega. Plan to continue monitoring by repeating a CT of the chest with contrast in 3 months. She will follow-up with Dr. Fuchs after CT results are available. Given that no inhalers have been helpful, the patient may follow-up as needed with our practice. (2) Primary cancer of right upper lobe of lung: Status: Chronic Plan: She will reestablish with radiation oncology today. Dr. Fuchs aware. She would like to know what stage it is. (3) Shortness of breath: Status: Acute Plan: Likely secondary to right lower lobe collapse with near complete collapse of the right middle lobe. Unfortunately, the patient has tried several inhalers without any symptom relief. She has even tried nebulized medications, and saw no improvement. I suggested a trial of antibiotics. The patient states no, I do not like taking medication. 4 pills that I take already is enough for me. (4) Pleural effusion: Status: Acute Plan: I explained to the patient that repeating a thoracentesis to evaluate for malignancy is standard, given that the pathology on this thoracentesis was negative. The patient is adamant that she is not interested in repeating the thoracentesis. She states that she was in pain for 3 days after that. Orders: Orders Chest WITH Contrast 3 Months R59.0 - Localized enlarged lymph nodes Plan Details Additional Comments: This note was generated with [employer] dictation software. It may contain incorrect words, spelling, and punctuation that were not noted in checking the note before signing. HPI 1 wk fu Chief Complaint: Test results HPI Comments Details: This patient presents to the office today for to discuss test results from the right sided thoracentesis. She is ambulatory and currently on room air. She has not recently been seen in the ED or urgent care for any respiratory illness. She has not required any antibiotics or prednisone for any breathing problems. She continues complete smoking cessation. She is not currently on supplemental oxygen. She has completed chemotherapy and radiation therapy and has turned down immune therapy. She has tried several inhalers and did not find them to be helpful. She has tried nebulized medications, did not notice any improvement and put it back in the box. She does have shortness of breath that is worse with exertion. She reports a dry cough, denies any sputum production or hemoptysis. She denies any chest congestion. She is experiencing wheezing and chest tightness. The wheezing is worse when she lays down. She denies any fever, chills or body aches. Test results personally discussed with the patient: Paracentesis completed on 10/15/24. Fluid pathology results not consistent with malignancy. Intake Vital Signs 10/31/24 07:49 11/04/24 08:04 Height 5 ft 5 in 5 ft 5 in Weight: 130 lb BMI 21.6 BP 176/126 H Blood Pressure Location Lt brachial Position Sitting Respiration 22 H Pulse 89 Pulse Source NIBP Temp 97.4 F L Temperature Source Temporal Artery Pulse Oximetry (%) 98 Oxygen Delivery Method room air Comment Bp elevated due to graves disease per patient. Intake Visit Reasons: 1 wk fu Chief Complaint: wound check s/p port removal Portal Architect Required: No DME Vendor: N/a Accompanied by: Self Is patient in pain?: No Allergies Penicillins Allergy (Unknown, Verified 11/04/24 13:05) Swelling cheese Allergy (Verified 11/04/24 13:05) Hives chocolate flavor Allergy (Verified 11/04/24 13:05) Rash Medications ???Medication ???Instructions ???Recorded ???Confirmed ???Type clonazepam 1 mg tablet 2 mg PO QHS ANXIETY 12/28/2011/04 History calcium 500 mg (as 1 tab PO DAILY SUPPLEMENT 11/06/22 11/04/24 History carbonate)-vitamin D3 3.125 mcg (125 unit) tablet levothyroxine 100 mcg tablet 125 mcg PO DAILY thyroid 12/28/22 11/04/24 History Hair Prosthesis #1 ea 03/13/23 11/04/24 Rx multivitamin with minerals-folic 1 tab PO DAILY vitamin 12/16/23 History acid 80 mcg chewable tablet (Centrum Adult 50 Plus) tizanidine 4 mg tablet 4 mg PO BID PRN PRN muscle 4 11/04/24 History spasticity cane #1 ea 10/10/24 11/04/24 Rx tramadol 50 mg tablet 50 mg PO Q8 PRN 10/10/24 11/04/24 History acetaminophen 325 mg tablet 325 mg PO ONCE PRN 10/31/24 (more content not included)... Normal [facility] Radiation Oncology Visiton 0 11-04-2024 Radiation Oncology Visit [facility] [place] [address] [place] [address] OFFICE VISIT Date of Service: 11/04/24 1405 MR#: [id number] Acct: [id number] Name: AMOL MCKEON Rep #: [id number] : 1950 From: Dank Fuchs Age/Sex: 74/F Location: [facility] Status: Signed Intake Vital Signs 11/04/24 08:04 11/04/24 14:05 Height 5 ft 5 in 5 ft 5 in Weight: 130 lb 130 lb BMI 21.6 21.6 BP 176/126 H 176/126 H Blood Pressure Location Lt brachial Position Sitting Sitting Respiration 22 H 22 H Pulse 89 89 Pulse Source NIBP Monitor Temp 97.4 F L 97.4 F L Temperature Source Temporal Artery Temporal Artery Pulse Oximetry (%) 98 98 Oxygen Delivery Method room air room air Comment Bp elevated due to graves disease per patient. 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 classification Low TSH level Elevated troponin Radiation pneumonitis Abnormal PET scan of colon Immunosuppressed status Cellulitis Atelectasis of right lung Anxiety Abnormal cardiac enzyme level Port-A-Cath in place Encounter for chemotherapy management Primary cancer of bronchus of right lower lobe Tetanus toxoid vaccination administered at current visit Cat bite of left forearm with infection 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, stage III Loss of hearing Cataract Wears dentures Essential hypertension TIA (transient ischemic attack) Restless leg syndrome Graves disease HLD (hyperlipidemia) Hypothyroidism Former smoker Allergy/AdvReac Type Severity Reaction Status Date / Time Penicillins Allergy Unknown Swelling Verified 11/04/24 13:05 cheese Allergy Hives Verified 11/04/24 13:05 chocolate flavor Allergy Rash Verified 11/04/24 13:05 Family History (Reviewed 11/04/24 @ 13:19 by Ese Marin DATA COLLECTION INTERVIEWER, DATA COLLECTION INTERVIEWER-C) Mother Hypertension Father Hypertension Surgical History History of removal of tunneled central venous catheter (CVC) with port History of hysterectomy History of appendectomy Social History household members: none Smoking Status: Former smoker alcohol intake: never substance use type: does not use Diagnosis: Amol Mckeon is a 74 year-old female diagnosed with at least clinical stage IIIB (cT3 cN2 M0) squamous cell carcinoma within the right upper lobe centrally with potentially separate tumor nodule s within the same lobe status post CT chest with contrast (11/02/2022), bronchoscopy with biopsy (11/10/2022), and PET scan (12/12/2022). From 01/01/2023 ??? 02/12/2023 she completed definitive chemoradiation.??? History of Present Illness: 11/02/2022: CT chest with contrast was performed.??? This demonstrated a focal soft tissue infiltrate seen in the posterior aspect of the right lung apex, this extends to the region of the major fissure.??? There is a 3.8 x 4.3 x 3.1 cm soft tissue mass arising from the right infrahilar region extending into the medial aspect of the right lower lobe with almost complete collapse of the right lower lobe.??? Neoplastic process should be ruled out.??? This causes narrowing of the right interlobar pulmonary artery.??? Biopsy is recommended. 11/06/2022: Patient was seen in the emergency room for increased shortness of breath 11/10/2022: Patient completed bronchoscopy.??? There is noted to be a partially obstructing mass approximately within the right airway, this is noted at the orifice and the bronchus intermedius and in the right middle lobe.??? The mass was large and endobronchial, exophytic, friable, polypoid and ulcerated.??? The lesion was not traversed.??? Transbronchial needle aspiration of station 7 was performed as well as biopsy of the primary mass.??? RBI washings demonstrated malignant cells present likely from non-small cell carcinoma favoring squamous cell carcinoma.??? Right mainstem bronchus tumor biopsy demonstrated squamous of carcinoma. 11/23/2022: PFTs done, FEV1 76% predicted, DLCO 59%. 12/12/2022: PET scan was performed.??? This demonstrated increased radiopharmaceutical concentration noted in the right thoracic perihilum and subcarinal mediastinum for filling quantitative criteria for malignant transformation.??? There is also enhanced tracer uptake noted in the region (more content not included)... Normal [facility] Pulmonary Visit Reporton Pulmonary Visit Report [facility] [place] [address] [place] [address] OFFICE VISIT Date of Service: 10/31/24 MR#: [id number] Acct: [id number] Name: AMOL MCKEON Rep #: [id number] : 1950 Provider: SHAHLA Marin Age/Sex: 74/F Location: [facility].PMW Status: Signed Assessment and Plan Assessment and Plan (1) Pleural effusion: Status: Acute Plan: Exam indicates better aeration. Unfortunately, pathology is not available for me to review with her today. We will set up an appointment for her to return to the office next week to discuss test results. If you recall, we were trying to identify if previously known cancer has spread and was evident in the pleural fluid. (2) Stage 2 moderate COPD by GOLD classification: Status: Chronic Plan: She does not appear to be in exacerbation today. She has never found any inhaler to be helpful. I did suggest possibly the assistance of palliative care. The patient declined at this time. She states I have everything I need. She continues to work 4-hour shifts several times per week. (3) Primary cancer of right upper lobe of lung: Status: Chronic Plan: Once again, she confirms that she is not interested in chemotherapy or radiation. She states that she just wants to know if the cancer has progressed. I did discuss with her that if we determine that she has cancer cells in the pleural fluid that this would be indicating a stage IV cancer. The patient reports that she is not willing to return to oncology. I suggested that she may benefit from hospice if this is the case, she declined on that as well. She states I really have everything I need at home. Plan Details Additional Comments: This note was generated with [employer] dictation software. It may contain incorrect words, spelling, and punctuation that were not noted in checking the note before signing. Follow Up: 1 Week HPI 3 wk fu Chief Complaint: Test results HPI Comments Details: This patient presents to the office today for to discuss test results from the right sided thoracentesis. She is ambulatory and currently on room air. She has not recently been seen in the ED or urgent care for any respiratory illness. She has not required any antibiotics or prednisone for any breathing problems. The patient reports that the thoracentesis was very uncomfortable. She states that she asked the performing physician to stop draining fluid due to discomfort. He told her that he was ordered to drain it all per her words. She continues complete smoking cessation. She is not currently on supplemental oxygen. She has completed chemotherapy and radiation therapy and has turned down immune therapy. She does have shortness of breath that is worse with exertion. She reports a dry cough, denies any sputum production or hemoptysis. She is experiencing wheezing and chest tightness. She denies any fever, chills or body aches. Intake Vital Signs 10/10/24 08:39 10/31/24 07:49 Height 5 ft 5 in 5 ft 5 in Weight: 130 lb BMI 21.6 BP 162/111 H Blood Pressure Location Lt brachial Position Sitting Respiration 18 Pulse 92 Pulse Source NIBP Temp 97.4 F L Temperature Source Temporal Artery Pulse Oximetry (%) 98 Oxygen Delivery Method room air Comment Patient states did not take her meds Intake Visit Reasons: 3 wk fu Chief Complaint: wound check s/p port removal DME Vendor: N/a Accompanied by: Self Is patient in pain?: Yes (Chest pain and right side rib cage) Allergies Penicillins Allergy (Unknown, Verified 10/31/24 07:53) Swelling cheese Allergy (Verified 10/31/24 07:53) Hives chocolate flavor Allergy (Verified 10/31/24 07:53) Rash Medications ???Medication ???Instructions ???Recorded ???Confirmed ???Type clonazepam 1 mg tablet 2 mg PO QHS ANXIETY 12/28/2010/31 History calcium 500 mg (as 1 tab PO DAILY SUPPLEMENT 11/06/22 10/31/24 History carbonate)-vitamin D3 3.125 mcg (125 unit) tablet levothyroxine 100 mcg tablet 125 mcg PO DAILY thyroid 12/28/22 10/31/24 History Hair Prosthesis #1 ea 03/13/23 10/31/24 Rx multivitamin with minerals-folic 1 tab PO DAILY vitamin 12/16/23 History acid 80 mcg chewable tablet (Centrum Adult 50 Plus) tizanidine 4 mg tablet 4 mg PO BID PRN PRN muscle 4 10/31/24 History spasticity cane #1 ea 10/10/24 10/31/24 Rx tramadol 50 mg tablet 50 mg PO Q8 PRN 10/10/24 10/31/24 History acetaminophen 325 mg tablet 325 mg PO ONCE PRN 10/31/24 History (Tylenol) ibuprofen 400 mg tablet 400 mg PO Q8H 10/31/24 10/31/24 Hi story levothyroxine 25 mcg tablet 25 mcg PO QDAY 10/31/24 10/31/24 H istory Have you fallen in the past year?: Yes PFSH Medical History Pleural effusion P (more content not included)... Normal [facility] Culture, Anaerobic Any Sourc nicolás 10-20-2024 CUAN UNK UNK No growth in 5 days. Normal [facility] Comment on above: Performed By: #### L 503.0300, L504.0250, L350.1000, M100.2000, M100.4001, L200.0200, M100.2900 ####[facility] [address] [place], [address] Body Fluid Cell Count+Diffon 10-16-2024 PATH COMM/BF Reviewed Normal [facility] Comment on above: Order Comment: The r eference interval(s) and other method performancespecifications are unavailable for this body fluid.Comparison of the result with concentration in the blood,serum, or plasma is recommended.RIGHT CHEST Result Comment: PEND ING FINAL CYTOLOGY. Radha Amin, DO 10/15/2024 AMENDED REPORT 10/16/24 0810 PATH COMM/BF previously reported as: May follow Performed By: #### L 503.0300, L504.0250, L350.1000, M100.2000, M100.4001, L200.0200, M100.2900 ####[facility] [address] [place], [place], [address] Body Fluid Culton 10-16-2024 BFC UNK UNK Culture exhibits no growth. Normal [facility] Comment on above: Performed By: #### L 503.0300, L504.0250, L350.1000, M100.2000, M100.4001, L200.0200, M100.2900 ####[facility] [address] [place], [place], [address] Activated partial thrombopla stin time (aPTT) in platelet poor plasma by coagulation aOrdered By: Taz Barroso on 10-15-2024 aPTT Coag (PPP) [Time] 32.0 s 24.1-36.2 [facility] Anaerobic cultureOrdered By: Ese Marin on 10-15-2024 Bacteria identified Anaer cx Nom (Unsp spec) No growth in 5 days. [facility] Body fluid appearance (nomin al result)Ordered By: Ees Marin on 10-15-2024 Appearance (Body fld) SL CLDY [facility] Body fluid color determinati onOrdered By: Ese Marin on 10-15-2024 Color (Body fld) YELLOW [facility] Body fluid cultureOrdered By : Ese Marin on 10-15-2024 Microbial culture, body fluid Culture exhibits no growth. [facility] Body fluid lactate dehydroge nase measurement (enzymatic activity/volume) by pyruvateOrdered By: Ese Marin on 10-15-2024 LDH Pyruvate to lactate reaction (Body fld) [Catalytic activity/Vol] 135 Units/L Not Establ. [facility] Body fluid leukocytes count (number/volume)Ordered By: Ese Marin on 10-15-2024 WBC (Body fld) [#/Vol] 4.495 10*3/uL [facility] Body fluid lymphocytes/100 l eukocytesOrdered By: Ese Marin on 10-15-2024 Lymphocytes/100 WBC (Body fld) 65 % [facility] Body fluid macrophage countO rdered By: Ese Marin on 10-15-2024 Macrophages (Body fld) [#/Vol] 14 % [facility] Body fluid mononuclear cell percentageOrdered By: Ese Marin on 10-15-2024 Mononuclear cells/100 WBC (Body fld) 89.4 % [facility] Body fluid protein measureme nt (mass/volume)Ordered By: Ese Marin on 10-15-2024 Protein (Body fld) [Mass/Vol] 5.6 g/dL Not Establ. [facility] Body fluid segmented neutrop hils count (number/volume)Ordered By: Ese Marin on 10-15-2024 Segmented neutrophils (Body fld) [#/Vol] 21 % [facility] Body fluid total cell countO rdered By: Ese Marin on 10-15-2024 Cells Counted Total (Body fld) [#] 4.537 10^3/ul High 0.000-0.00 0 [facility] Comment on above: This is the Total Nu mber of Nucleated Cell Types in the Body Fluid. Cytology report of Body flui d Cyto stainOrdered By: Ese Marin on 10-15-2024 Cytology report Cyto stain Doc (Body fld) SEE PATHOLOGY REPORT [facility] Comment on above: Specimen submitted t o Anatomical Pathology Department for testing. Cytology, Body Fluid / CSFon 10-15-2024 CYTOLOGY,BF/CSF SEE PATHOLOGY REPORT Normal [facility] Comment on above: Order Comment: RIGHT CHEST Result Comment: Spec imen submitted to Anatomical Pathology Department for testing. Performed By: #### L 503.0300, L504.0250, L350.1000, M100.2000, M100.4001, L200.0200, M100.2900 ####[facility] [address] [place], [place], [id number] Gram Stainon 10-15-2024 GS UNK UNK Centrifuged Specimen? Culture performed on centrifuged specimen Gram Stain No organisms seen 2+ White Blood Cells Normal [facility] Comment on above: Performed By: #### L 503.0300, L504.0250, L350.1000, M100.2000, M100.4001, L200.0200, M100.2900 ####[facility] [address] [place], [place], [address] Gram stainOrdered By: Reji Marin on 10-15-2024 Microscopic observation Gram stain Nom (Unsp spec) [facility] Immunohistochemical Stainson 10-15-2024 Immunohistochemical Stains Patient Age/Sex Location Account Attending Physician AMOL MCKEON 74/F [id number] SHAHLA Sharp Specimen: [id number] Received: 10/15/24 Status: NIYAH Nino Num: [id number] Spec Type: Fluid Subm Dr: Ese Marin, DATA COLLECTION INTERVIEWER-C HEADER OPERATION: Thoracentesis PRE-OP DIAGNOSIS: Pleural effusion TISSUE SUBMITTED: A- Thoracentesis fluid for cytology DIAGNOSIS CYTOLOGY A. Pleural effusion, thoracentesis, cytospin and cellblock: * No malignant cells identified. * Reactive mesothelial cells present - see note and Comment. * Note: IHCs were performed supporting the above diagnosis. * Positive: CK5/6, CD68, Calretinin, WT-1 (focal) * Negative: p40, p63, BerEp4, MOC31 COMMENT Selected slides/images were reviewed in intradepartmental consultation by Dr Tim Moreland (thoracic pathology division, [facility]). CYTOLOGY STUDY Slides are reviewed. All matched controls reacted appropriately. These tests were developed and their performance characteristics determined by [facility] Laboratory and [facility] Dept of Pathology. They may not have been cleared or approved by the U.S. Food and Drug Administration. The FDA has determined that such clearance or approval is not necessary.??? The above immunohistochemical/dualISH ???markers are ordered and reviewed by the Pathologist. CYTOLOGY GROSS A. Received is 100 ml of cloudy-yellow fluid labeled with the patient's name and and designated per the requisition as Thoracentesis fluid. Submitted for cytology (cytospin) and cell block preparation. 10/15/2024 CPT: 64838, 33248, 38384,10931s7 Signed (signature on file) Dr. Yamilka Courtney MD 10/31/24 1247 Normal [facility] Comment on above: Performed By: #### P IMHI ####[facility] [address] [place], [place], [address] International normalized rat io (INR) calculationOrdered By: Taz Barroso on 10-15-2024 INR Coag (Bld) [Relative time] 1.0 {INR} [facility] LDHon 10-15-2024 LDH 139 U/L Normal 84-246 [facility] Comment on above: Order Comment: 1 Performed By: #### L 001.0705, L504.2610 #### [facility] [address] [place], [place], [id number] LDH,Body Fluidon 10-15-2024 LDH,BF 135 Units/L Normal Not Establ. [facility] Comment on above: Order Comment: RIGHT CHEST Performed By: #### L 503.0300, L504.0250, L350.1000, M100.2000, M100.4001, L200.0200, M100.2900 ####[facility] [address] [place], [place], [phone] Lactate dehydrogenase (LDH) measurementOrdered By: Ese Marin on 10-15-2024 LDH [Catalytic activity/Vol] 139 U/L 84-246 [facility] No Panel InformationOrdered By: Ese Marin on 10-15-2024 Body Fluid Comment 2 SEE COMMENT [facility] Body Fluid RBC 505 /mm3 [facility] Partial Thromboplast Timeon 10-15-2024 aPTT Coag (Bld) [Time] 32.0 s Normal 24.1-36.2 [facility] Comment on above: Performed By: #### L 300.4310, L300.3900 ####[facility] [address] [place], [place], [phone] Pathologist interpretation o f Body fluid testsOrdered By: Ese Marin on 10-15-2024 Pathologist interpretation (Body fld) [Interp] Reviewed [facility] Comment on above: Previous reported re sult: May follow Edited by: CHAD on 10/16/24:0810PENDING FINAL CYTOLOGY.Radha Amin, DO 10/15/2024 AMENDED REPORT 10/16/24 0810 PATH COMM/BF previously reported as: May follow Protein, Body Fluidon 2024 Protein [Mass/Vol] 5.6 g/dL Normal Not Establ. [facility] Comment on above: Order Comment: RIGHT CHEST Performed By: #### L 503.0300, L504.0250, L350.1000, M100.2000, M100.4001, L200.0200, M100.2900 ####[facility] [address] [place], [address] Protein, Totalon 10-15-2024 T PROT 7.7 g/dL Normal 5.9-8.4 [facility] Comment on above: Performed By: #### L 001.0705, L504.2610 #### [facility] [address] [place], [address] Prothrombin Time w/INRon INR Coag (PPP) [Relative time] 1.0 {INR} Normal [facility] Comment on above: Performed By: #### L 300.4310, L300.3900 ####[facility] [address] [place], [address] PT Coag (PPP) [Time] 13.3 s Normal 11.7-14.9 [facility] Comment on above: Performed By: #### L 300.4310, L300.3900 ####[facility] [address] [place], [address] Prothrombin timeOrdered By: Taz Barroso on 10-15-2024 PT Coag (PPP) [Time] 13.3 s 11.7-14.9 [facility] Specimen source identificati on of body fluidOrdered By: Ese Marin on 10-15-2024 Specimen source Nom (Body fld) PLEURAL FLUID [facility] Thoracentesis W USon 025 Thoracentesis W US [facility] [address] [place] [address] Thoracentesis W US MR#: [id number] Acct: [id number] Name: AMOL MCKEON Rep #: [id number] : 1950 F 74 From: Taz Anderson PCP: Dr. Leidy Beyer DO Status: REG CLI Study: Thoracentesis W US Date of Exam: 10/15/24 Exam# [id number] Ordering Dr: Ese Marin NP DATA COLLECTION INTERVIEWER-C PROCEDURE: THORACENTESIS W US 10/15/2024 REASON FOR EXAM: PLEURAL EFFUSION TECHNIQUE: Procedure: Following informed consent, and using standard sterile technique, a right-sided thoracentesis was performed under ultrasound guidance, via a posterior approach. 2% lidocaine local anesthesia was followed by placement of a 5 Lithuanian catheter into the pleural fluid collection. Approximately 450 mL keyla colored clear fluid was successfully removed. Of this, 120 mL was sent to the laboratory for evaluation. No complication was encountered, and the patient left the department in good condition, without significant complaint. COMPARISON: None. US/Thoracentesis W US IMPRESSION: Successful ultrasound-guided right thoracentesis. Laboratory results pending. Reading Location: [place] [address] CC: DATA COLLECTION INTERVIEWER-C Ese Marin; Dr. Leidy Beyer DO Account Services Specialist: Signed Normal [facility] Total proteinOrdered By: Rochelle Marin on 10-15-2024 Protein [Mass/Vol] 7.7 g/dL 5.9-8.4 [facility] Pulmonary Visit Reporton Pulmonary Visit Report [facility] [place] [address] [place], [place] [id number] OFFICE VISIT Date of Service: 10/10/24 MR#: [id number] Acct: [id number] Name: AMOL MCKEON Rep #: [id number] : 1950 Provider: SHAHLA Marin Age/Sex: 74/F Location: [facility].PMW Status: Signed Assessment and Plan Assessment and Plan (1) Pleural effusion: Status: Acute Plan: New. Patient recently had a CT scan and a PET scan both confirming pleural effusion on the right. The patient is more short of breath and experiencing some discomfort on the right side. I believe that the patient would benefit from a thoracentesis on the right, not only for comfort, but also diagnostic to help us determine if the cancer has returned. The patient is adamant that she is not interested in repeating chemotherapy, however she would like to know how bad it is. I explained to her that if we are able to identify that there are cancerous cells in the pleural fluid that this would indicate stage IV malignancy. She had considered a CT-guided biopsy of a nodule in the right middle lobe. I suggested that we try to provide her with some relief by ordering this right sided thoracentesis first, and it may also give us insight into the cause of the fluid. Return to the office in 3 weeks, at which time anticipate to have some lab results to discuss. At that time we can better develop a plan. This case was discussed with her primary care doctor. (2) Stage 2 moderate COPD by GOLD classification: Status: Chronic Plan: She has not been treated with inhalers recently. If you recall, the last office visit where she was provided with a sample of Anoro. She did not find it to be helpful and did not fill a prescription after completing the samples that were provided. Could consider repeating a pulmonary function test. Given the patient's current acute symptoms likely secondary to pleural effusion, I believe it is appropriate to hold off until the patient's symptoms are more controlled and we are able to identify potential cause. (3) Chronic respiratory failure with hypoxia: Status: Chronic Plan: The patient reports that she does not currently have supplemental oxygen in her home. She does have clubbing on exam today. It is possible that a pleural effusion could cause hypoxia. I will plan on (4) Primary cancer of right upper lobe of lung: Status: Chronic Plan: The patient was not able to accept immunotherapy that was recommended a year ago due to her Graves' disease, according to her. She has not followed with oncology since then. It is possible that she has had a recurrence of the same cancer. Test results results will be discussed at the follow-up visit and then we can determine a plan of action. (5) Cough: Qualifiers: Cough type: acute Qualified Code(s): R05.1 - Acute cough Plan: Attempted to perform a NIOX in the office today, the patient was not able to perform the maneuver required for testing. However, the acute cough could be related to the pleural effusion. If the patient continues to have a cough after the fluid has been removed we can determine if she may benefit from a daily ICS inhaler or potentially a prednisone taper. (6) Shortness of breath: Status: Acute Plan: Likely secondary to pleural effusion. I will send her for the thoracentesis and hope for some symptom improvement. Plan to evaluate for hypoxemia on her return to office, either by a walk test in the office or ordering a formal pulmonary stress test at [facility]. (7) Unstable gait: Status: Chronic Plan: Chronic, not new. Ordering a cane. The patient is happy to case picker a cane, especially if it is covered by her insurance. Orders: Orders NIOX Today R05.9 - Cough, unspecified Thoracentesis W US Today J90 - Pleural effusion, not elsewhere classified Protein, Total Today R06.02 - Shortness of breath LDH Today R06.02 - Shortness of breath Partial Thromboplast Time Today R06.02 - Shortness of breath Prothrombin Time w/INR Today R06.02 - Shortness of breath Protein, Body Fluid Today R06.02 - Shortness of breath LDH,Body Fluid Today R06.02 - Shortness of breath Cytology, Body Fluid / CSF Today R06.02 - Shortness of breath Body Fluid Cell Count+Diff Today R06.02 - Shortness of breath Culture, Body Fluid Today J90 - Pleural effusion, not elsewhere classified Medications: New [cane] As directed 1 ea 0RF C34.11 - Malignant neoplasm of upper lobe, right bronchus or lung Plan Details Additional Comments: This note was generated with [employer] software. It may contain incorrect words, spelling, and punctuation that were not noted in checking the note before signing. Follow Up: 3 Weeks (CSM) HPI Follow up Per PCP Chief Complaint: Reestablish care HPI Comments Details: This pa (more content not included)... Normal [facility] PET/CT Tumor Base -Thigh Ini ton 09-30-2024 PET/CT Tumor Base -Thigh Init [facility] Imaging Services [address] [place], [place] [address] PET/CT Tumor Base -Thigh Init MR#: [id number] Acct: [id number] Name: AMOL MCKEON Rep #: [id number] : 1950 F 74 From: Amy Melchor nd, MD PCP: Dr. Leidy Beyer, Status: REG CLI Study: PET/CT Tumor Base -Thigh Init Date of Exam: Exam# [id number] Ordering Dr: Michael Roberson DO EXAM: PET/CT Study CLINICAL HISTORY: 74 y/o F with POSSIBLE RECURRENT TUMORS R LUNG COMPARISON: CT chest 09/11/2024, PET-CT 04/27/2023. TECHNIQUE: PROCEDURE: Following the intravenous administration of radionucleotide, image acquisition on a dedicated PET/CT unit was performed at one hour post injection. A preliminary CT study encompassing the Skull base, neck, chest, abdomen, pelvis, and proximal thighs was performed for purposes of attenuation correction and anatomic localization. The proximal thighs were also included. The patient's blood glucose level was 108 mg/dL (allowable range: 50-180 mg/dL). RADIOPHARMACEUTICAL: 12.6 mCi 18F-FDG (Fluorodeoxyglucose F18) IV was injected into patient. FINDINGS: Physiologic uptake: There may be expected metabolic uptake within the brain, tongue and floor of the mouth and larynx/vocal cords, heart, ayaka (many normal individuals have hilar uptake in less than 3 nodes with mildly avid hilar nodes less than 2.7 SUV), liver and spleen, system, and GI tract and symmetric muscle uptake. FDG AVID AND NON-AVID LESIONS. Reported avid SUV values (g/mL*) are maximum SUV. Average liver parenchyma SUV: 2.2 HEAD/NECK: No suspicious hypermetabolic lesion. CHEST: Within the anterior right middle lobe, there is an area of consolidation demonstrating hypermetabolic activity, demonstrating a maximum SUV of 3.9. No significant hypermetabolic uptake within the right pleural effusion. ABDOMEN: No suspicious hypermetabolic lesion. PELVIS: No suspicious hypermetabolic lesion. Additional CT findings: Edentulism. Severe coronary artery, thoracic aortic and aortoiliac calcifications. Persistent bullous emphysema of the right apical lung with rightward mediastinal shift. Moderate-sized right pleural effusion and near-complete consolidation of the right middle and lower lobes. Moderate-sized right pleural effusion. Ectasia of the suprarenal abdominal aorta. Left renal calcifications, likely vascular. Colonic diverticulosis. Thoracolumbar spondylosis. PET/PET/CT Tumor Base -Thigh Init IMPRESSION: Persistent area of consolidation demonstrating hypermetabolic activity within the right middle lobe, which remains indeterminate in etiology and may represent recurrent/residual neoplasm, pneumonitis (including radiation pneumonitis) or infection. Again, correlation with tissue biopsy is recommended. Please note the low-dose CT scan was performed to facilitate PET image reconstruction and anatomic localization and does not replace a diagnostic CT. Any diagnostic CT requested and performed at the time of the PET will be reported separately. Reading Location: [facility] CC: Dr. Leidy Beyer DO; Dr. Michael Roberson DO Account Services Specialist: Signed Normal [facility] Positron emission tomography scan reportOrdered By: Amy Comer on 09-30-2024 PT Unspecified body region [facility] Imaging Services [address] [place], [place] [id number] PET/CT Tumor Base -Thigh Init MR#: [id number] Acct: [id number] Name: AMOL MCKEON Rep #: [id number] : 1950 F 74 From: Rena Comer MD PCP: Dr. Leidy Beyer DO Status: REG CLI Study:PET/CT Tumor Base -Thigh Init Date of E xam: 09/30/24 Exam# [id number] Ordering Dr: Michael Roberson DO EXAM: PET/CT Study CLINICAL HISTORY: 74 y/o F with POSSIBLE RECURRENT TUMORS R LUNG COMPARISON: CT chest 09/11/2024, PET-CT 04/27/2023. TECHNIQUE: PROCEDURE: Following the intravenous administration of radionucleotide, image acquisition on a dedicated PET/CT unit was performed at one hour post injection. A preliminary CT study encompassing the Skull base, neck, chest, abdomen, pelvis, and proximal thighs was performed for purposes of attenuation correction and anatomic localization. The proximal thighs were also included. The patient's blood glucose level was 108 mg/dL (allowable range: 50-180 mg/dL). RADIOPHARMACEUTICAL: 12.6 mCi 18F-FDG (Fluorodeoxyglucose F18) IV was injected into patient. FINDINGS: Physiologic uptake: There may be expected metabolic uptake within the brain, tongue and floor of the mouth and larynx/vocal cords, heart, ayaka (many normal individuals have hilar uptake in less than 3 nodes with mildly avid hilar nodes less than 2.7 SUV), liver and spleen, system, and GI tract and symmetric muscle uptake. FDG AVID AND NON-AVID LESIONS. Reported avid SUV values (g/mL*) are maximum SUV. Average liver parenchyma SUV: 2.2 HEAD/NECK: No suspicious hypermetabolic lesion. CHEST: Within the anterior right middle lobe, there is an area of consolidation demonstrating hypermetabolic activity, demonstrating a maximum SUV of 3.9. No significant hypermetabolic uptake withinthe right pleural effusion. ABDOMEN: No suspicious hypermetabolic lesion. PELVIS: No suspicious hypermetabolic lesion. Additional CT findings: Edentulism. Severe coronary artery, thoracic aortic andaortoiliac calcifications. Persistent bullous emphysema of the right apical lung with rightward mediastinal shift. Moderate-sized right pleural effusion and near-complete consolidation of the right middle and lower lobes. Moderate-sized right pleuraleffusion. Ectasia of the suprarenal abdominal aorta. Left renal calcifications, likely vascular. Colonic diverticulosis. Thoracolumbar spondylosis. PET/PET/CT Tumor Base -Thigh Init IMPRESSION: Persistent area of consolidation demonstrating hypermetabolic activity within the right middle lobe, which remains indeterminate in etiology and may represent recurrent/residual neoplasm, pneumonitis (including radiation pneumonitis) or infection. Again, correlation with tissue biopsy is recommended. Please note the low-dose CT scan was performed to facilitate PET image reconstruction and anatomic localization and does not replace a diagnostic CT. Any diagnostic CT requested and performed at the time of the PET will be reported separately. Reading Location: [facility] CC: Dr. Leidy Beyer DO; Dr. Michael Roberson DO ~ Account Services Specialist: Signed [facility] Chest WITH Contraston 2024 Chest WITH Contrast [facility] Imaging Services [address] [place] [address] Chest WITH Contrast MR#: [id number] Acct: [id number] Name: AMOL MCKEON Rep #: [id number] : 1950 F 74 From: Briana Manzo MD PCP: Dr. Leidy Beyer DO Status: REG CLI Study: Chest WITH Contrast Date of Exam: 09/10/24 Exam# [id number] Ordering Dr: Michael Roberson DO PROCEDURE: CHEST WITH CONTRAST 09/10/2024 REASON FOR EXAM: HX LUNG CA/PLEURAL EFFUSION TECHNIQUE: Prone and supine chest CT with intravenous contrast, high resolution CT (HRCT) protocol. Coronal and Sagittal reconstruction series were provided. CONTRAST: Isovue 370 VOLUME: 100 ML 18 gauge IV One or more dose reduction techniques were used (e.g., Automated exposure control, adjustment of the mA and/or kV according to patient size, use of iterative reconstruction technique). RADIATION DOSE SUMMARY: CTDlvol: 7.1 mGy DLP: 252.3 mGycm COMPARISON: None available FINDINGS: Hardware: None Lymph nodes: No lymphadenopathy. Heart and Vasculature: The heart is normal in size. The great vessels are normal in size and caliber. Lungs and Airways: Central airways are patent. There is complete atelectasis of the right lower lobe. Patchy opacities within the right upper lobe, and right lower lobe likely representing atelectasis or multifocal infection or underlying tumor. Bullous changes within the right apical lung. Pleura: Moderate to large right-sided pleural effusion. Upper Abdomen: Partially visualized upper abdomen demonstrates no acute abnormality. Bones: No aggressive osseous lesions. No acute fractures. CT/Chest WITH Contrast IMPRESSION: *There is probable near-complete atelectasis of the right lower lobe with patchy opacities within the right upper lobe and right middle lobe possibly representing atelectasis, or infection or underlying tumor. *Small to moderate right-sided pleural effusion. *Bullous changes within the right apical lung. Reading Location: [id number] CC: Dr. Leidy Beyer DO; Dr. Michael Roberson, Account Services Specialist: Signed Normal [facility] Absolute lymphocyte countOrd ered By: Michael Roberson on 08-19-2024 Lymphocytes Auto (Unsp spec) [#/Vol] 1.61 10*3/uL 0.83-4.51 [facility] Absolute neutrophil countOrd ered By: Michael Roberson on 08-19-2024 Neutrophils (Bld) [#/Vol] 3.8 10*3/uL 2.0-7.7 [facility] Anion gap in Serum or Plasma Ordered By: Michael Roberson on 08-19-2024 Anion gap [Moles/Vol] 12 mmol/L 5-15 [facility] Automated lymphocyte count a s percentage of total leukocytesOrdered By: Michael Roberson on 08-19-2024 Lymphocytes/100 WBC Auto (Unsp spec) 26.2 % 19-41 [facility] BUN/creatinine ratioOrdered By: Michael Roberson on 08-19-2024 Urea nitrogen/Creatinine [Mass ratio] 15.9 mg/mg 10-20 [facility] Basophil percentageOrdered B y: Michael Roberson on 08-19-2024 Basophils/100 WBC (Bld) 1.0 % 0-1 [facility] Bilirubin, totalOrdered By: Michael Roberson on 08-19-2024 Bilirubin [Mass/Vol] 0.61 mg/dL 0.00-1.30 [facility] CBC W/Diff, Automatedon 08-02 Absolute Lymph 1.61 X10 3/uL Normal 0.83-4.51 [facility] Comment on above: Performed By: #### L 501.9588, L500.4050, L506.0400, L100.0100 #### [facility] Laboratory [address] [place], [address] Absolute Neut 3.8 X10 3/uL Normal 2.0-7.7 [facility] Comment on above: Performed By: #### L 501.9520, L500.4050, L506.0400, L100.0100 #### [facility] [address] [place], [address] Basophils/100 WBC (Bld) 1.0 % Normal 0-1 [facility] Comment on above: Performed By: #### L 501.9520, L500.4050, L506.0400, L100.0100 #### [facility] [address] [place], [address] Eosinophils/100 WBC (Bld) 1.8 % Normal 0-5 [facility] Comment on above: Performed By: #### L 501.9520, L500.4050, L506.0400, L100.0100 #### [facility] [address] [place], [address] Erythrocyte distribution width (RBC) [Ratio] 12.7 % Normal 11.6-14.6 [facility] Comment on above: Performed By: #### L 501.9520, L500.4050, L506.0400, L100.0100 #### [facility] [address] [place], [address] Hematocrit (Bld) [Volume fraction] 43.0 % Normal 37-47 [facility] Comment on above: Performed By: #### L 501.9520, L500.4050, L506.0400, L100.0100 #### [facility] [address] [place], [address] Hemoglobin (Bld) [Mass/Vol] 14.4 g/dL Normal 12.0-15.0 [facility] Comment on above: Performed By: #### L 501.9520, L500.4050, L506.0400, L100.0100 #### [facility] [address] [place], [address] IG% 0.200 Normal 0.0-0.9 [facility] Comment on above: Result Comment: IG% - Immature Granulocytes (promyelocytes, myelocytes and metamyelocytes) > 1% indicates that a LEFT SHIFT is Present. Performed By: #### L 501.9520, L500.4050, L506.0400, L100.0100 #### [facility] [address] [place], [address] Lymphocytes/100 WBC (Bld) 26.2 % Normal 19-41 [facility] Comment on above: Performed By: #### L 501.9520, L500.4050, L506.0400, L100.0100 #### [facility] [address] [place], [address] MCH (RBC) [Entitic mass] 30.2 pg Normal 27.0-32.0 [facility] Comment on above: Performed By: #### L 501.9520, L500.4050, L506.0400, L100.0100 #### [facility] [address] [place], [address] MCHC (RBC) [Mass/Vol] 33.5 g/dL Normal 32-36 [facility] Comment on above: Performed By: #### L 501.9520, L500.4050, L506.0400, L100.0100 #### [facility] [address] [place], [address] MCV (RBC) [Entitic vol] 90.1 fL Normal 81-99 [facility] Comment on above: Performed By: #### L 501.9520, L500.4050, L506.0400, L100.0100 #### [facility] [address] [place], [address] Monocytes/100 WBC (Bld) 8.8 % Normal 0-10 [facility] Comment on above: Performed By: #### L 501.9520, L500.4050, L506.0400, L100.0100 #### [facility] [address] [place], [address] Neutrophils/100 WBC (Bld) 62.0 % Normal 47-70 [facility] Comment on above: Performed By: #### L 501.9520, L500.4050, L506.0400, L100.0100 #### [facility] [address] [place], [address] Nucleated RBC (Bld) [#/Vol] 0 10*3/uL Normal 0-5 [facility] Comment on above: Performed By: #### L 501.9520, L500.4050, L506.0400, L100.0100 #### [facility] [address] [place], [address] Platelet mean volume (Bld) [Entitic vol] 10.0 fL Normal 6.2-12.0 [facility] Comment on above: Performed By: #### L 501.9520, L500.4050, L506.0400, L100.0100 #### [facility] [address] [place], [address] Platelets (Bld) [#/Vol] 256 10*3/uL Normal 150-450 [facility] Comment on above: Performed By: #### L 501.9520, L500.4050, L506.0400, L100.0100 #### [facility] [address] [place], [address] RBC (Bld) [#/Vol] 4.77 10*6/uL Normal 4.2-5.4 [facility] Comment on above: Performed By: #### L 501.9520, L500.4050, L506.0400, L100.0100 #### [facility] [address] [place], [address] RDW SD 41.8 fl Normal 35.1-43.9 [facility] Comment on above: Performed By: #### L 501.9520, L500.4050, L506.0400, L100.0100 #### [facility] [address] [place], [address] WBC (Bld) [#/Vol] 6.1 10*3/uL Normal 4.4-11.0 [facility] Comment on above: Performed By: #### L 501.9520, L500.4050, L506.0400, L100.0100 #### [facility] [address] [place], [address] Carbon dioxide, total [Moles /volume] in Central venous bloodOrdered By: Michael Roberson on 08-19-2024 CO2 [Moles/Vol] 26.1 mmol/L 21.0-32.0 [facility] Chloride assayOrdered By: Gogo Roberson on 08-19-2024 Chloride [Moles/Vol] 100 mmol/L 98-108 [facility] Comprehensive Metabolic Prof ilon 08-19-2024 Albumin [Mass/Vol] 4.3 g/dL Normal 3.4-4.8 [facility] Comment on above: Performed By: #### L 501.9520, L500.4050, L506.0400, L100.0100 #### [facility] [address] [place], [address] Albumin/Globulin [Mass ratio] 1.1 {ratio} Normal 0.9-2.4 [facility] Comment on above: Performed By: #### L 501.9520, L500.4050, L506.0400, L100.0100 #### [facility] [address] [place], [address] ALK PHOS 94 U/L Normal 35-104 [facility] Comment on above: Performed By: #### L 501.9520, L500.4050, L506.0400, L100.0100 #### [facility] [address] [place], [address] ALT [Catalytic activity/Vol] 7 U/L Normal <=34 [facility] Comment on above: Performed By: #### L 501.9520, L500.4050, L506.0400, L100.0100 #### [facility] [address] [place], [address] AST [Catalytic activity/Vol] 19 U/L Normal <=31 [facility] Comment on above: Performed By: #### L 501.9520, L500.4050, L506.0400, L100.0100 #### [facility] [address] [place], [address] Bilirubin [Mass/Vol] 0.61 mg/dL Normal 0.00-1.30 [facility] Comment on above: Performed By: #### L 501.9520, L500.4050, L506.0400, L100.0100 #### [facility] [address] [place], [address] BUN/CRE 15.9 RATIO Normal 10-20 [facility] Comment on above: Performed By: #### L 501.9520, L500.4050, L506.0400, L100.0100 #### [facility] [address] [place], [address] Calcium [Mass/Vol] 9.8 mg/dL Normal 7.6-11.0 [facility] Comment on above: Performed By: #### L 501.9520, L500.4050, L506.0400, L100.0100 #### [facility] [address] [place], [address] Chloride [Moles/Vol] 100 mmol/L Normal 98-108 [facility] Comment on above: Performed By: #### L 501.9520, L500.4050, L506.0400, L100.0100 #### [facility] [address] [place], [address] CO2 [Moles/Vol] 26.1 mmol/L Normal 21.0-32.0 [facility] Comment on above: Performed By: #### L 501.9520, L500.4050, L506.0400, L100.0100 #### [facility] [address] [place], [address] Creatinine [Mass/Vol] 0.66 mg/dL Low 0.70-1.20 [facility] Comment on above: Performed By: #### L 501.9520, L500.4050, L506.0400, L100.0100 #### [facility] [address] [place], [address] GAP 12 Normal 5-15 [facility] Comment on above: Performed By: #### L 501.9520, L500.4050, L506.0400, L100.0100 #### [facility] [address] [place], [address] GFR/1.73 sq M.predicted among non-blacks MDRD (S/P/Bld) [Vol rate/Area] 93 mL/min/{1.73_m2} Normal >60 [facility] Comment on above: Result Comment: mL/m in/1.73m2 CKD-EPI Creatinine Equation (2020) Performed By: #### L 501.9520, L500.4050, L506.0400, L100.0100 #### [facility] [address] [place], [address] Globulin (S) [Mass/Vol] 3.9 g/dL Normal 2.2-4.2 [facility] Comment on above: Performed By: #### L 501.9520, L500.4050, L506.0400, L100.0100 #### [facility] [address] [place], [address] Glucose [Mass/Vol] 89 mg/dL Normal 70-99 [facility] Comment on above: Performed By: #### L 501.9520, L500.4050, L506.0400, L100.0100 #### [facility] [address] [place], [address] Potassium [Moles/Vol] 3.8 mmol/L Normal 3.3-5.1 [facility] Comment on above: Performed By: #### L 501.9520, L500.4050, L506.0400, L100.0100 #### [facility] [address] [place], [address] Sodium [Moles/Vol] 138 mmol/L Normal 133-145 [facility] Comment on above: Performed By: #### L 501.9520, L500.4050, L506.0400, L100.0100 #### [facility] [address] [place], [address] T PROT 8.1 g/dL Normal 5.9-8.4 [facility] Comment on above: Performed By: #### L 501.9520, L500.4050, L506.0400, L100.0100 #### [facility] [address] [place], [address] Urea nitrogen [Mass/Vol] 11 mg/dL Normal 4-19 [facility] Comment on above: Performed By: #### L 501.9520, L500.4050, L506.0400, L100.0100 #### [facility] [address] [place], [address] Eosinophil percentageOrdered By: Michael Roberson on 08-19-2024 Eosinophils/100 WBC (Bld) 1.8 % 0-5 [facility] Erythrocyte distribution wid th ratioOrdered By: Michael Roberson on 08-19-2024 Erythrocyte distribution width (RBC) [Ratio] 12.7 % 11.6-14.6 [facility] Erythrocyte distribution wid th standard deviationOrdered By: Michael Roberson on 08-19-2024 Erythrocyte distribution width (RBC) [Entitic vol] 41.8 fL 35.1-43.9 [facility] Erythrocyte distribution width (RBC) [Ratio] 41.8 fl 35.1-43.9 [facility] GFR/1.73 sq M.predicted aries g non-blacks MDRD (S/P/Bld) [Vol rate/Area]Ordered By: Michael Roberson on 08-19-2024 Estimated GFR (MDRD) Non-Af Amer 93 >60 [facility] Comment on above: mL/min/1.73m2 CKD-EP I Creatinine Equation (2020) Glomerular filtration rate ( GFR) estimation/1.73 sq m using serum, plasma, or whole bOrdered By: Michael Roberson on 08-19-2024 GFR/1.73 sq M.predicted among non-blacks MDRD (S/P/Bld) [Vol rate/Area] 93 mL/min/{1.73_m2} >60 [facility] Comment on above: mL/min/1.73m2 CKD-EP I Creatinine Equation (2020) Hematocrit Auto (Bld) [Volum e fraction]Ordered By: Michael Roberson on 08-19-2024 Hematocrit (Bld) [Volume fraction] 43.0 % 37-47 [facility] Hemoglobin measurementOrdere d By: Michael Roberson on 08-19-2024 Hemoglobin (Bld) [Mass/Vol] 14.4 g/dL 12.0-15.0 [facility] Immature granulocytes/100 WB C Auto (Bld)Ordered By: Michael Roberson on 08-19-2024 Immature granulocytes/100 WBC (Bld) 0.200 % 0.0-0.9 [facility] Comment on above: IG% - Immature Granu locytes (promyelocytes, myelocytes and metamyelocytes) > 1% indicates that a LEFT SHIFT is Present. Laboratory - Chemistry and C hemistry - challengeOrdered By: Michael Roberson on 08-19-2024 AST [Catalytic activity/Vol] 19 U/L <32 [facility] Lymphocytes Auto (Unsp spec) [#/Vol]Ordered By: Michael Roberson on 08-19-2024 Lymphocytes (Bld) [#/Vol] 1.61 10*3/uL 0.83-4.51 [facility] Lymphocytes/100 WBC Auto (Un sp spec)Ordered By: Michael Roberson on 08-19-2024 Lymphocytes/100 WBC (Bld) 26.2 % 19-41 [facility] MCV (mean corpuscular volume ) determinationOrdered By: Michael Roberson on 08-19-2024 MCV (RBC) [Entitic vol] 90.1 fL 81-99 [facility] Mean corpuscular hemoglobin (MCH) determinationOrdered By: Michael Roberson on 08-19-2024 MCH (RBC) [Entitic mass] 30.2 pg 27.0-32.0 [facility] Mean corpuscular hemoglobin concentration (MCHC) determinationOrdered By: Michael Roberson on 08-19-2024 MCHC (RBC) [Mass/Vol] 33.5 g/dL 32-36 [facility] Mean platelet volume determi nationOrdered By: Michael Roberson on 08-19-2024 Platelet mean volume (Bld) [Entitic vol] 10.0 fL 6.2-12.0 [facility] Monocyte percentageOrdered B y: Michael Roberson on 08-19-2024 Monocytes/100 WBC (Bld) 8.8 % 0-10 [facility] Neutrophil percentageOrdered By: Michael Roberson on 08-19-2024 Neutrophils/100 WBC (Bld) 62.0 % 47-70 [facility] Nucleated red blood cell per centageOrdered By: Michael Roberson on 08-19-2024 Nucleated RBC/100 WBC (Bld) [Ratio] 0 % 0-5 [facility] Platelet countOrdered By: Gogo Roberson on 08-19-2024 Platelets (Bld) [#/Vol] 256 10*3/uL 150-450 [facility] Potassium (Unsp spec) [Mass/ Vol]Ordered By: Michael Roberson on 08-19-2024 Potassium [Moles/Vol] 3.8 mmol/L 3.3-5.1 [facility] Potassium measurement (mass/ volume)Ordered By: Michael Roberson on 08-19-2024 Potassium (Unsp spec) [Mass/Vol] 3.8 mmol/L 3.3-5.1 [facility] RBC Auto (Bld) [#/Vol]Ordere d By: Michael Roberson on 08-19-2024 RBC (Bld) [#/Vol] 4.77 10*6/uL 4.2-5.4 [facility] Serum creatinine measurement (mass/volume)Ordered By: Michael Roberson on 08-19-2024 Creatinine [Mass/Vol] 0.66 mg/dL Low 0.70-1.20 [facility] Serum globulin measurementOr dered By: Michael Roberson on 08-19-2024 Globulin (S) [Mass/Vol] 3.9 g/dL 2.2-4.2 [facility] Serum glucose measurement (m ass/volume)Ordered By: Michael Roberson on 08-19-2024 Glucose [Mass/Vol] 89 mg/dL 70-99 [facility] Serum or plasma alanine waters otransferase (ALT) measurementOrdered By: Michael Roberson on 08-19-2024 ALT [Catalytic activity/Vol] 7 U/L <35 [facility] Serum or plasma albumin eun urement (mass/volume)Ordered By: Michael Roberson on 08-19-2024 Albumin [Mass/Vol] 4.3 g/dL 3.4-4.8 [facility] Serum or plasma albumin/glob ulin mass ratioOrdered By: Michael Roberson on 08-19-2024 Albumin/Globulin [Mass ratio] 1.1 {ratio} 0.9-2.4 [facility] Serum or plasma alkaline adonis sphatase measurementOrdered By: Michael Roberson on 08-19-2024 ALP [Catalytic activity/Vol] 94 U/L 35-104 [facility] Serum or plasma calcium eun urement (mass/volume)Ordered By: Michael Roberson on 03-18-2025 Calcium [Mass/Vol] 9.8 mg/dL 7.6-11.0 [facility] Serum or plasma urea nitroge n measurement (mass/volume)Ordered By: Michael Roberson on 08-19-2024 Urea nitrogen [Mass/Vol] 11 mg/dL 4-19 [facility] Sodium levelOrdered By: Michael Roberson on 08-19-2024 Sodium [Moles/Vol] 138 mmol/L 133-145 [facility] T4 Free Directon 08-19-2024 T4 FREE DIRECT 1.40 ng/dL Normal 0.76-1.46 [facility] Comment on above: Performed By: #### L [id number], L500.4050, L506.0400, L100.0100 #### [facility] Laboratory [address] [place], [place], [id number] T4 freeOrdered By: Michael damon on 08-19-2024 Free T4 [Mass/Vol] 1.40 ng/dL 0.76-1.46 [facility] TSH DL <= 0.005 mIU/L QnOrde red By: Michael Roberson on 08-19-2024 Thyroid Stimulating Hormone (TSH) 3.540 uIU/mL 0.300-4.20 0 [facility] TSH Qn 3.540 uIU/mL 0.300-4.20 0 [facility] Thyroid Stim Hormone (TSH)on 08-19-2024 TSH 3.540 uIU/mL Normal 0.300-4.20 0 [facility] Comment on above: Performed By: #### L [id number], L500.4050, L506.0400, L100.0100 #### [facility] [address] [place], [place], [id number] Total proteinOrdered By: Juani Roberson on 08-19-2024 Protein [Mass/Vol] 8.1 g/dL 5.9-8.4 [facility] White blood cell (WBC) count Ordered By: Michael Roberson on 08-19-2024 WBC (Bld) [#/Vol] 6.1 10*3/uL 4.4-11.0 [facility] CREATININE FINGERSTICKon CREATININE WB < 1.0 Normal 0.55-1.02 [facility] Comment on above: Performed By: #### L 9100.0200 #### [facility] [address] [place], [place], [address] EGFR WB > 60.0000 Normal >60 [facility] Comment on above: Performed By: #### L 9100.0200 #### [facility] [address] [place], [place], [address] CT Chest, Abd, Pel w/Contras ton 02-28-2024 CT Chest, Abd, Pel w/Contrast [facility] [address] [place], [place] [address] CT Chest, Abd, Pel w/Contrast MR#: [id number] Acct: [id number] Name: AMOL MCKEON Rep #: [id number] : [id number] F 73 From: Fernando Moody DO PCP: Dr. Leidy Beyer DO Status: REG CLI Study: CT Chest, Abd, Pel w/Contrast Date of Exam: Exam# [id number] Ordering Dr: Michael Roberson DO [id number] STUDY: CT CHEST, ABDOMEN T PELVIS WITH CONTRAST REASON FOR EXAM: Female, 73 years old. R FLANK PAIN/HX LUNG CA RADIATION DOSAGE (If Supplied By Facility): CTDIvol = ( 8.64 ) mGy, DLP = ( 460.76 ) mGycm TECHNIQUE: Transaxial imaging was performed following intravenous administration of 100mL Isovue 300. The protocol utilizes one or more of the following dose reduction techniques: automated exposure control, adjustment of mA and/or kV according to patient size,and/or use of iterative reconstruction technique. COMPARISON: March 06, 2023 FINDINGS: CHEST Right lung volume loss with moderate pleural effusion and consolidation/infiltrate. Multiple right apical blebs. There is no demonstrated pleural abnormality. Normal heart and pericardium. Right shifted mediastinum. Normal hilar regions. Normal unenhanced pulmonary arteries. Normal aorta arch. Mild ectasia of the distal descending thoracic aorta measuring up to 3.3 cm. Normal osseous structures. ABDOMEN 4 mm hypoattenuated right hepatic nodule in the liver. Normal gallbladder and extrahepatic biliary system. Normal spleen. Normal pancreas. Normal bilateral adrenal glands. Small bilateral renal cysts. Normal visualized stomach. Normal small intestine. Fecal retention in the colon. The appendix is not visualized. Calcified abdominal aorta. Normal inferior vena cava. Normal retroperitoneum. Normal abdominal wall. Normal osseous structures. PELVIS Normal urinary bladder. There is no pelvic fluid. There is no pelvic lymphadenopathy or mass lesion. Normal visualized pelvic arteries. CT/CT Chest, Abd, Pel w/Contrast IMPRESSION: Diffuse colonic fecal retention. Bilateral small renal cysts. Small hepatic hypoattenuated nodule, likely cystic in nature. Right lung volume loss with moderate pleural effusion and consolidation/infiltrate. Multiple right apical blebs. Electronically Signed: Fernando Moody DO at 16:33 EDT Reading Location ID and State: [facility] / [place] Tel [phone], Service support , CC: Dr. Leidy Beyer DO; Dr. Michael Roberson DO Account Services Specialist: Signed Normal [facility] Absolute lymphocyte countOrd ered By: Leidy Beyer on 09-13-2023 Lymphocytes Auto (Unsp spec) [#/Vol] 1.26 10*3/uL 0.83-4.51 [facility] Automated lymphocyte count a s percentage of total leukocytesOrdered By: Leidy Beyer on 09-13-2023 Lymphocytes/100 WBC Auto (Unsp spec) 18.7 % 19-41 [facility] Basophil percentageOrdered B y: Leidy Beyer on 09-13-2023 Basophils/100 WBC (Bld) 0.4 % 0-1 [facility] Bilirubin [Mass/Vol] 0.80 mg/dL 0.20-1.00 [facility] Comment on above: For patients on eltr ombopag therapy, use of Dimension [place] TBIL is not recommended. Chloride [Moles/Vol] 103 mmol/L 98-107 [facility] Eosinophils/100 WBC (Bld) 1.5 % 0-5 [facility] Glucose [Mass/Vol] 113 mg/dL 74-106 [facility] Comment on above: Fasting Glucose resu lt from 100 to 125 mg/dL suggests IMPAIRED HOMEOSTASIS per A.D.A. criteria. Hemoglobin (Bld) [Mass/Vol] 13.4 g/dL 12.0-15.0 [facility] Monocytes/100 WBC (Bld) 9.8 % 0-10 [facility] Neutrophils (Bld) [#/Vol] 4.7 10*3/uL 2.0-7.7 [facility] Neutrophils/100 WBC (Bld) 69.5 % 47-70 [facility] Potassium [Moles/Vol] 3.6 mmol/L 3.5-5.1 [facility] Protein [Mass/Vol] 7.8 g/dL 6.4-8.2 [facility] Sodium [Moles/Vol] 135 mmol/L 136-145 [facility] WBC (Bld) [#/Vol] 6.7 10*3/uL 4.4-11.0 [facility] Determination of erythrocyte mean corpuscular volume (MCV)Ordered By: Leidy Beyer on 09-13-2023 MCV (RBC) [Entitic vol] 89.6 fL 81-99 [facility] Erythrocyte distribution wid th ratioOrdered By: Leidy Beyer on 09-13-2023 Erythrocyte distribution width (RBC) [Ratio] 13.7 % 11.6-14.6 [facility] Erythrocyte distribution wid th standard deviationOrdered By: Leidy Beyer on 09-13-2023 Erythrocyte distribution width (RBC) [Entitic vol] 44.9 fL 35.1-43.9 [facility] Hematocrit Auto (Bld) [Volum e fraction]Ordered By: Leidy Beyer on 09-13-2023 Hematocrit (Bld) [Volume fraction] 42.1 % 37-47 [facility] Immature granulocytes/100 WB C Auto (Bld)Ordered By: Leidy Beyer on 09-13-2023 Immature granulocytes/100 WBC (Bld) 0.100 % 0.0-0.9 [facility] Comment on above: IG% - Immature Granu locytes (promyelocytes, myelocytes and metamyelocytes) > 1% indicates that a LEFT SHIFT is Present. Laboratory - Chemistry and C hemistry - challengeOrdered By: Leidy Beyer on 09-13-2023 Albumin/Globulin [Mass ratio] 0.8 {ratio} 0.9-2.4 [facility] ALP [Catalytic activity/Vol] 66 U/L 45-117 [facility] ALT [Catalytic activity/Vol] 11 U/L 13-56 [facility] CO2 [Moles/Vol] 27.0 mmol/L 21.0-32.0 [facility] Globulin (S) [Mass/Vol] 4.4 g/dL 2.2-4.2 [facility] Urea nitrogen/Creatinine [Mass ratio] 7.7 mg/mg 10-20 [facility] Laboratory - Hematology and Cell countsOrdered By: Leidy Beyer on 09-13-2023 MCH (RBC) [Entitic mass] 28.5 pg 27.0-32.0 [facility] MCHC (RBC) [Mass/Vol] 31.8 g/dL 32-36 [facility] Nucleated RBC/100 WBC (Bld) [Ratio] 0 % 0-5 [facility] Platelet mean volume (Bld) [Entitic vol] 9.9 fL 6.2-12.0 [facility] Platelets (Bld) [#/Vol] 309 10*3/uL 150-450 [facility] No Panel InformationOrdered By: Leidy Beyer on 09-13-2023 Estimated GFR (MDRD) Amer 116 mL/min >60 [facility] Comment on above: GFR Calc Estimated GFR (MDRD) Non-Af Amer 96 mL/min >60 [facility] Comment on above: Non- GFR Calc Free Triiodothyronine (T3) pg/dL 2.3 pg/mL 2.18-3.98 [facility] Reverse Triiodothyronine (T3) 24.2 ng/dL 9.2-24.1 [facility] Comment on above: Performed at: [facility] [id number] [place], [place] [id number] Director: Cayetano Lucio MD, Phone: [phone] RBC Auto (Bld) [#/Vol]Ordere d By: Leidy Beyer on 09-13-2023 RBC (Bld) [#/Vol] 4.70 10*6/uL 4.2-5.4 [facility] Serum or plasma calcium eun urement (mass/volume)Ordered By: Leidy Beyer on 09-13-2023 Calcium [Mass/Vol] 9.7 mg/dL 8.5-10.1 [facility] Serum or plasma creatinine m easurement (mass/volume)Ordered By: Leidy Beyer on 09-13-2023 Creatinine [Mass/Vol] 0.65 mg/dL 0.55-1.02 [facility] Comment on above: The validity of the calculated GFR & GFRAA in patients over 70 years has not been determined. Clinical correlation is essential. Serum or plasma thyroid stim ulating hormone (TSH) measurement (units/volume)Ordered By: Leidy Beyer on 09-13-2023 TSH Qn 2.29 uIU/mL 0.358-3.74 [facility] Serum or plasma thyroxine (T 4) measurement (mass/volume)Ordered By: Leidy Beyer on 09-13-2023 T4 [Mass/Vol] 14.7 ug/dL 4.8-13.9 [facility] Serum or plasma triiodothyro nine measurement by immunoassay (mass/volume)Ordered By: Leidy Beyer on 09-13-2023 T3 IA [Mass/Vol] 1.37 ng/mL 0.6-1.81 [facility] Serum or plasma urea nitroge n measurement (mass/volume)Ordered By: Leidy Beyer on 09-13-2023 Urea nitrogen [Mass/Vol] 5 mg/dL 7-18 [facility] Thin prep Papanicolaou smear with manual screeningOrdered By: Leidy Beyer on 09-13-2023 Thin prep Papanicolaou smear with manual screening 3.4 g/dL 3.2-5.0 [facility] Thin prep Papanicolaou smear with manual screening 18 U/L 15-37 [facility] Thin prep Papanicolaou smear with manual screening 5 5-15 [facility] Thin prep Papanicolaou smear with manual screening 1.52 ng/dL 0.76-1.46 [facility] Absolute lymphocyte countOrd ered By: Srinivasa Careyanaly on 08-01-2023 Lymphocytes Auto (Unsp spec) [#/Vol] 1.26 10*3/uL 0.83-4.51 [facility] Automated lymphocyte count a s percentage of total leukocytesOrdered By: Srinivasa Francisco on 08-01-2023 Lymphocytes/100 WBC Auto (Unsp spec) 19.6 % 19-41 [facility] Basophil percentageOrdered B y: Srinivasa Maryam on 08-01-2023 Basophils/100 WBC (Bld) 0.5 % 0-1 [facility] Bilirubin [Mass/Vol] 0.70 mg/dL 0.20-1.00 [facility] Comment on above: For patients on eltr ombopag therapy, use of Dimension [place] TBIL is not recommended. Chloride [Moles/Vol] 103 mmol/L 98-107 [facility] Eosinophils/100 WBC (Bld) 1.1 % 0-5 [facility] Glucose [Mass/Vol] 95 mg/dL 74-106 [facility] Hemoglobin (Bld) [Mass/Vol] 13.2 g/dL 12.0-15.0 [facility] Monocytes/100 WBC (Bld) 12.1 % 0-10 [facility] Neutrophils (Bld) [#/Vol] 4.3 10*3/uL 2.0-7.7 [facility] Neutrophils/100 WBC (Bld) 66.4 % 47-70 [facility] Potassium [Moles/Vol] 3.6 mmol/L 3.5-5.1 [facility] Protein [Mass/Vol] 7.4 g/dL 6.4-8.2 [facility] Sodium [Moles/Vol] 139 mmol/L 136-145 [facility] WBC (Bld) [#/Vol] 6.4 10*3/uL 4.4-11.0 [facility] Determination of erythrocyte mean corpuscular volume (MCV)Ordered By: Srinivasa Francisoc on 08-01-2023 MCV (RBC) [Entitic vol] 93.6 fL 81-99 [facility] Erythrocyte distribution wid th ratioOrdered By: [facility] on 08-01-2023 Erythrocyte distribution width (RBC) [Ratio] 13.0 % 11.6-14.6 [facility] Erythrocyte distribution wid th standard deviationOrdered By: [facility] on 08-01-2023 Erythrocyte distribution width (RBC) [Entitic vol] 44.8 fL 35.1-43.9 [facility] Hematocrit Auto (Bld) [Volum e fraction]Ordered By: [facility] Maryam on 08-01-2023 Hematocrit (Bld) [Volume fraction] 40.9 % 37-47 [facility] Immature granulocytes/100 WB C Auto (Bld)Ordered By: [facility] Maryam on 08-01-2023 Immature granulocytes/100 WBC (Bld) 0.300 % 0.0-0.9 [facility] Comment on above: IG% - Immature Granu locytes (promyelocytes, myelocytes and metamyelocytes) > 1% indicates that a LEFT SHIFT is Present. Laboratory - Chemistry and C hemistry - challengeOrdered By: [facility] on 08-01-2023 Albumin/Globulin [Mass ratio] 0.8 {ratio} 0.9-2.4 [facility] ALP [Catalytic activity/Vol] 72 U/L 45-117 [facility] ALT [Catalytic activity/Vol] 10 U/L 13-56 [facility] CO2 [Moles/Vol] 29.0 mmol/L 21.0-32.0 [facility] Globulin (S) [Mass/Vol] 4.1 g/dL 2.2-4.2 [facility] Urea nitrogen/Creatinine [Mass ratio] 11.6 mg/mg 10-20 [facility] Laboratory - Hematology and Cell countsOrdered By: Srinivasa Francisco on 08-01-2023 MCH (RBC) [Entitic mass] 30.2 pg 27.0-32.0 [facility] MCHC (RBC) [Mass/Vol] 32.3 g/dL 32-36 [facility] Nucle[facility] RBC/100 WBC (Bld) [Ratio] 0 % 0-5 [facility] Platelet mean volume (Bld) [Entitic vol] 9.1 fL 6.2-12.0 [facility] Platelets (Bld) [#/Vol] 249 10*3/uL 150-450 [facility] No Panel InformationOrdered By: Srinivasa Francisco on 08-01-2023 Estimated Creatinine Clearance Calc 54.96 ml/min [facility] Estimated GFR (MDRD) Amer 107 mL/min >60 [facility] Comment on above: GFR Calc Estimated GFR (MDRD) Non-Af Amer 89 mL/min >60 [facility] Comment on above: Non- GFR Calc RBC Auto (Bld) [#/Vol]Ordere d By: Srinivasa Francisco on 08-01-2023 RBC (Bld) [#/Vol] 4.37 10*6/uL 4.2-5.4 [facility] Serum or plasma calcium eun urement (mass/volume)Ordered By: Srinivasa Francisco on 08-01-2023 Calcium [Mass/Vol] 9.7 mg/dL 8.5-10.1 [facility] Serum or plasma creatinine m easurement (mass/volume)Ordered By: Srinivasa Francisco on 08-01-2023 Creatinine [Mass/Vol] 0.69 mg/dL 0.55-1.02 [facility] Comment on above: The validity of the calculated GFR & GFRAA in patients over 70 years has not been determined. Clinical correlation is essential. Serum or plasma urea nitroge n measurement (mass/volume)Ordered By: Srinivasa Francisco on 08-01-2023 Urea nitrogen [Mass/Vol] 8 mg/dL 7-18 [facility] Thin prep Papanicolaou smear with manual screeningOrdered By: Srinivasa Francisco on 08-01-2023 Thin prep Papanicolaou smear with manual screening 3.3 g/dL 3.2-5.0 [facility] Thin prep Papanicolaou smear with manual screening 16 U/L 15-37 [facility] Thin prep Papanicolaou smear with manual screening 7 5-15 [facility] Basophil percentageOrdered B y: Dank Fuchs on 02-06-2024 Basophil percentage < 1.0 mg/dL 0.55-1.02 [facility] No Panel InformationOrdered By: Dank Fuchs on 07-10-2023 Bedside Estimated GFR (eGFR) > 60.0000 mL/min >60 [facility] Laboratory - Chemistry and C hemistry - challengeOrdered By: Leidy Beyer on 05-02-2023 Free T4 [Mass/Vol] 1.34 ng/dL 0.76-1.46 [facility] No Panel InformationOrdered By: Leidy Beyer on 05-02-2023 Free Triiodothyronine (T3) pg/dL 1.7 pg/mL 2.18-3.98 [facility] Thyroid Stimulating Hormone (TSH) 9.07 uIU/mL 0.358-3.74 [facility] Absolute lymphocyte countOrd ered By: Srinivasa Francisco on 05-01-2023 Lymphocytes Auto (Unsp spec) [#/Vol] 0.53 10*3/uL 0.83-4.51 [facility] Basophil percentageOrdered B y: Srinivasa Francisco on 05-01-2023 Basophil percentage 2.5 mg/dL 2.5-4.9 [facility] Basophils/100 WBC (Bld) 0.4 % 0-1 [facility] Bilirubin [Mass/Vol] 0.50 mg/dL 0.20-1.00 [facility] Comment on above: For patients on eltr ombopag therapy, use of Dimension [place] TBIL is not recommended. Chloride [Moles/Vol] 99 mmol/L 98-107 [facility] Eosinophils/100 WBC (Bld) 0.2 % 0-5 [facility] Glucose [Mass/Vol] 109 mg/dL 74-106 [facility] Comment on above: Fasting Glucose resu lt from 100 to 125 mg/dL suggests IMPAIRED HOMEOSTASIS per A.D.A. criteria. Neutrophils (Bld) [#/Vol] 6.9 10*3/uL 2.0-7.7 [facility] Neutrophils/100 WBC (Bld) 84.5 % 47-70 [facility] Potassium [Moles/Vol] 3.0 mmol/L 3.5-5.1 [facility] Protein [Mass/Vol] 8.0 g/dL 6.4-8.2 [facility] Sodium [Moles/Vol] 136 mmol/L 136-145 [facility] WBC (Bld) [#/Vol] 8.2 10*3/uL 4.4-11.0 [facility] Blood erythrocytes count (nu mber/volume)Ordered By: Srinivasa Francisco on 05-01-2023 RBC (Bld) [#/Vol] 2.83 10*6/uL 4.2-5.4 [facility] Blood hemoglobin measurement (mass/volume)Ordered By: Srinivasa Francisco on 05-01-2023 Hemoglobin (Bld) [Mass/Vol] 9.2 g/dL 12.0-15.0 [facility] Blood lymphocytes/100 leukoc ytesOrdered By: Srinivasa Francisco on 05-01-2023 Lymphocytes/100 WBC (Bld) 6.5 % 19-41 [facility] Blood manual differential co mment interpretation (narrative result)Ordered By: Srinivasa Francisco on 05-01-2023 Manual differential comment Elliott (Bld) [Interp] SCANNED [facility] Comment on above: LYMPHOPENIA NOTED Blood monocytes/100 leukocyt esOrdered By: Srinivasa Francisco on 05-01-2023 Monocytes/100 WBC (Bld) 8.0 % 0-10 [facility] Blood platelet mean volumeOr dered By: Srinivasa Francisco on 05-01-2023 Platelet mean volume (Bld) [Entitic vol] 8.7 fL 6.2-12.0 [facility] Determination of erythrocyte mean corpuscular volume (MCV)Ordered By: Srinivasa Francisco on 05-01-2023 MCV (RBC) [Entitic vol] 100.4 fL 81-99 [facility] Hematocrit Auto (Bld) [Volum e fraction]Ordered By: Srinivasa Francisco on 05-01-2023 Hematocrit (Bld) [Volume fraction] 28.4 % 37-47 [facility] Iron measurement (mass/mass) Ordered By: Srinivasa Francisco on 05-01-2023 Iron (Unsp spec) [Mass/Mass] 49 ug/dL 50-170 [facility] Laboratory - Chemistry and C hemistry - challengeOrdered By: Srinivasa Francisco on 05-01-2023 ALP [Catalytic activity/Vol] 82 U/L 45-117 [facility] ALT [Catalytic activity/Vol] 12 U/L 13-56 [facility] CO2 [Moles/Vol] 30.0 mmol/L 21.0-32.0 [facility] Cobalamin (Vitamin B12) [Mass/Vol] 1500 pg/mL 211-911 [facility] Globulin (S) [Mass/Vol] 4.8 g/dL 2.2-4.2 [facility] Magnesium [Mass/Vol] 1.8 mg/dL 1.6-2.6 [facility] Urea nitrogen/Creatinine [Mass ratio] 10.5 mg/mg 10-20 [facility] Laboratory - Hematology and Cell countsOrdered By: Srinivasa Francisco on 05-01-2023 Anisocytosis Ql (Bld) 1+ [facility] Erythrocyte distribution width (RBC) [Entitic vol] 73.3 fL 35.1-43.9 [facility] Erythrocyte distribution width (RBC) [Ratio] 19.9 % 11.6-14.6 [facility] Immature granulocytes/100 WBC (Bld) 0.400 % 0.0-0.9 [facility] Comment on above: IG% - Immature Granu locytes (promyelocytes, myelocytes and metamyelocytes) > 1% indicates that a LEFT SHIFT is Present. MCH (RBC) [Entitic mass] 32.5 pg 27.0-32.0 [facility] Nucleated RBC/100 WBC (Bld) [Ratio] 0 % 0-5 [facility] MCHC Auto (RBC) [Mass/Vol]Or dered By: Srinivasa Francisco on 05-01-2023 MCHC (RBC) [Mass/Vol] 32.4 g/dL 32-36 [facility] No Panel InformationOrdered By: Srinivasa Francisco on 05-01-2023 Estimated Creatinine Clearance Calc 46.43 ml/min [facility] Estimated GFR (MDRD) Amer 96 mL/min >60 [facility] Comment on above: GFR Calc Estimated GFR (MDRD) Non-Af Amer 79 mL/min >60 [facility] Comment on above: Non- GFR Calc Total Iron Binding Capacity 192 ug/dL 250-450 [facility] Platelets bldOrdered By: Keegan sanders Maryam on 05-01-2023 Platelets (Bld) [#/Vol] 359 10*3/uL 150-450 [facility] Serum or plasma albumin eun urement (mass/volume)[facility]: [facility] on 05-01-2023 Albumin [Mass/Vol] 3.2 g/dL 3.2-5.0 [facility] Serum or plasma albumin/glob ulin mass ratioOrdered By: [facility] on 05-01-2023 Albumin/Globulin [Mass ratio] 0.7 {ratio} 0.9-2.4 [facility] Serum or plasma calcium eun urement (mass/volume)Ordered By: [facility] on 05-01-2023 Calcium [Mass/Vol] 9.0 mg/dL 8.5-10.1 [facility] Serum or plasma creatinine m easurement (mass/volume)Ordered By: Srinivasa Francisco on 05-01-2023 Creatinine [Mass/Vol] 0.76 mg/dL 0.55-1.02 [facility] Comment on above: The validity of the calculated GFR & GFRAA in patients over 70 years has not been determined. Clinical correlation is essential. Serum or plasma ferritin melina surement (mass/volume)Ordered By: Srinivasa Francisco on 05-01-2023 Ferritin [Mass/Vol] 340 ng/mL 8-252 [facility] Serum or plasma iron saturat ion measurement (mass fraction)Ordered By: Srinivasa Francisco on 05-01-2023 Iron saturation [Mass fraction] 25.5 % 15.0-55.0 [facility] Serum or plasma urea nitroge n measurement (mass/volume)Ordered By: [facility] on 05-01-2023 Urea nitrogen [Mass/Vol] 8 mg/dL 7-18 [facility] Thin prep Papanicolaou smear with manual screeningOrdered By: [facility] on 05-01-2023 Thin prep Papanicolaou smear with manual screening 11 U/L 15-37 [facility] Thin prep Papanicolaou smear with manual screening 7 5-15 [facility] Basophil percentageOrdered B y: Miguel Ángel Wells on 03-19-2023 Chloride [Moles/Vol] 103 mmol/L 98-107 [facility] Glucose [Mass/Vol] 111 mg/dL 74-106 [facility] Comment on above: Fasting Glucose resu lt from 100 to 125 mg/dL suggests IMPAIRED HOMEOSTASIS per A.D.A. criteria. Potassium [Moles/Vol] 3.8 mmol/L 3.5-5.1 [facility] Sodium [Moles/Vol] 135 mmol/L 136-145 [facility] Laboratory - Chemistry and C hemistry - challengeOrdered By: Miguel Ángel Wells on 03-19-2023 CK [Catalytic activity/Vol] 27 U/L 26-192 [facility] CO2 [Moles/Vol] 27.0 mmol/L 21.0-32.0 [facility] Urea nitrogen/Creatinine [Mass ratio] 19.3 mg/mg 10-20 [facility] No Panel InformationOrdered By: Miguel Ángel Wells on 03-19-2023 D-Dimer Quantitative (PE/DVT) 0.75 FEU/ug/m 0.27-0.49 [facility] Comment on above: D-Dimer ELEVATED (>0 .49): Additional studies and clinicalassessments are indicated to conclude diagnosis of:Deep Vein Thrombosis (DVT) or Pulmonary Embolism (PE) Estimated GFR (MDRD) Amer 121 mL/min >60 [facility] Comment on above: GFR Calc Estimated GFR (MDRD) Non-Af Amer 100 mL/min >60 [facility] Comment on above: Non- GFR Calc Serum or plasma calcium eun urement (mass/volume)Ordered By: Miguel Ángel Wells on 03-19-2023 Calcium [Mass/Vol] 9.0 mg/dL 8.5-10.1 [facility] Serum or plasma creatinine m easurement (mass/volume)Ordered By: Miguel Ángel Wells on 03-19-2023 Creatinine [Mass/Vol] 0.62 mg/dL 0.55-1.02 [facility] Comment on above: The validity of the calculated GFR & GFRAA in patients over 70 years has not been determined. Clinical correlation is essential. Serum or plasma urea nitroge n measurement (mass/volume)Ordered By: Miguel Ángel Wells on 03-19-2023 Urea nitrogen [Mass/Vol] 12 mg/dL 7-18 [facility] Thin prep Papanicolaou smear with manual screeningOrdered By: Miguel Ángel Wells on 03-19-2023 Thin prep Papanicolaou smear with manual screening 5 5-15 [facility] Absolute lymphocyte countOrd ered By: Srinivasa Francisco on 03-13-2023 Lymphocytes Auto (Unsp spec) [#/Vol] 1.04 10*3/uL 0.83-4.51 [facility] Basophil percentageOrdered B y: Srinivasa Francisco on 03-13-2023 Basophil percentage 2.8 mg/dL 2.5-4.9 [facility] Basophils/100 WBC (Bld) 0.5 % 0-1 [facility] Bilirubin [Mass/Vol] 0.60 mg/dL 0.20-1.00 [facility] Comment on above: For patients on eltr ombopag therapy, use of Dimension [place] TBIL is not recommended. Chloride [Moles/Vol] 101 mmol/L 98-107 [facility] Eosinophils/100 WBC (Bld) 0.8 % 0-5 [facility] Glucose [Mass/Vol] 109 mg/dL 74-106 [facility] Comment on above: Fasting Glucose resu lt from 100 to 125 mg/dL suggests IMPAIRED HOMEOSTASIS per A.D.A. criteria. Neutrophils (Bld) [#/Vol] 4.4 10*3/uL 2.0-7.7 [facility] Neutrophils/100 WBC (Bld) 68.7 % 47-70 [facility] Potassium [Moles/Vol] 3.2 mmol/L 3.5-5.1 [facility] Protein [Mass/Vol] 7.1 g/dL 6.4-8.2 [facility] Sodium [Moles/Vol] 136 mmol/L 136-145 [facility] WBC (Bld) [#/Vol] 6.4 10*3/uL 4.4-11.0 [facility] Blood erythrocytes count (nu mber/volume)Ordered By: Srinivasa Francisco on 03-13-2023 RBC (Bld) [#/Vol] 3.15 10*6/uL 4.2-5.4 [facility] Blood hemoglobin measurement (mass/volume)Ordered By: Srinivasa Francisco on 03-13-2023 Hemoglobin (Bld) [Mass/Vol] 10.1 g/dL 12.0-15.0 [facility] Blood lymphocytes/100 leukoc ytesOrdered By: [facility] on 03-13-2023 Lymphocytes/100 WBC (Bld) 16.3 % 19-41 [facility] Blood monocytes/100 leukocyt esOrdered By: [facility] Maryam on 03-13-2023 Monocytes/100 WBC (Bld) 13.4 % 0-10 [facility] Blood platelet mean volumeOr dered By: [facility] on 03-13-2023 Platelet mean volume (Bld) [Entitic vol] 8.4 fL 6.2-12.0 [facility] Determination of erythrocyte mean corpuscular volume (MCV)Ordered By: [facility] Maryam on 03-13-2023 MCV (RBC) [Entitic vol] 95.6 fL 81-99 [facility] Hematocrit Auto (Bld) [Volum e fraction]Ordered By: [facility] Maryam on 03-13-2023 Hematocrit (Bld) [Volume fraction] 30.1 % 37-47 [facility] Laboratory - Chemistry and C hemistry - challengeOrdered By: [facility] Maryam on 03-13-2023 ALP [Catalytic activity/Vol] 78 U/L 45-117 [facility] ALT [Catalytic activity/Vol] 13 U/L 13-56 [facility] CO2 [Moles/Vol] 29.0 mmol/L 21.0-32.0 [facility] Globulin (S) [Mass/Vol] 4.2 g/dL 2.2-4.2 [facility] Magnesium [Mass/Vol] 1.9 mg/dL 1.6-2.6 [facility] Urea nitrogen/Creatinine [Mass ratio] 13.9 mg/mg 10-20 [facility] Laboratory - Hematology and Cell countsOrdered By: [facility] Maryam on 03-13-2023 Erythrocyte distribution width (RBC) [Entitic vol] 63.1 fL 35.1-43.9 [facility] Erythrocyte distribution width (RBC) [Ratio] 18.1 % 11.6-14.6 [facility] Immature granulocytes/100 WBC (Bld) 0.300 % 0.0-0.9 [facility] Comment on above: IG% - Immature Granu locytes (promyelocytes, myelocytes and metamyelocytes) > 1% indicates that a LEFT SHIFT is Present. MCH (RBC) [Entitic mass] 32.1 pg 27.0-32.0 [facility] Nucleated RBC/100 WBC (Bld) [Ratio] 0 % 0-5 [facility] MCHC Auto (RBC) [Mass/Vol]Or dered By: Srinivasa Francisco on 03-13-2023 MCHC (RBC) [Mass/Vol] 33.6 g/dL 32-36 [facility] No Panel InformationOrdered By: Srinivasa Francisco on 03-13-2023 Estimated Creatinine Clearance Calc 46.43 ml/min [facility] Estimated GFR (MDRD) Amer 133 mL/min >60 [facility] Comment on above: GFR Calc Estimated GFR (MDRD) Non-Af Amer 110 mL/min >60 [facility] Comment on above: Non- GFR Calc Platelets bldOrdered By: Keegan Francisco on 03-13-2023 Platelets (Bld) [#/Vol] 363 10*3/uL 150-450 [facility] Serum or plasma albumin eun urement (mass/volume)Ordered By: Srinivasa Francisco on 03-13-2023 Albumin [Mass/Vol] 2.9 g/dL 3.2-5.0 [facility] Serum or plasma albumin/glob ulin mass ratioOrdered By: Srinivasa Francisco on 03-13-2023 Albumin/Globulin [Mass ratio] 0.7 {ratio} 0.9-2.4 [facility] Serum or plasma calcium eun urement (mass/volume)Ordered By: Srinivasa Francisco on 03-13-2023 Calcium [Mass/Vol] 9.1 mg/dL 8.5-10.1 [facility] Serum or plasma creatinine m easurement (mass/volume)Ordered By: Srinivasa Francisco on 03-13-2023 Creatinine [Mass/Vol] 0.57 mg/dL 0.55-1.02 [facility] Comment on above: The validity of the calculated GFR & GFRAA in patients over 70 years has not been determined. Clinical correlation is essential. Serum or plasma urea nitroge n measurement (mass/volume)Ordered By: Srinivasa Francisco on 03-13-2023 Urea nitrogen [Mass/Vol] 8 mg/dL 7-18 [facility] Thin prep Papanicolaou smear with manual screeningOrdered By: Srinivasa Francisco on 03-13-2023 Thin prep Papanicolaou smear with manual screening 14 U/L 15-37 [facility] Thin prep Papanicolaou smear with manual screening 6 5-15 [facility] Laboratory - Hematology and Cell countsOrdered By: Srinivasa Francisco on 02-06-2023 Anisocytosis Ql (Bld) 1+ [facility] Review by pathologistOrdered By: Srinivasa Francisco on 02-06-2023 Pathologist review Elliott (Unsp spec) [Interp] Reviewed [facility] Comment on above: Previous reported re sult: Michelle barboza Edited by: RGOMOLLY on 02/08/23:0958Leukopenia and neutropenia.Clinical correlation necessary.Loy Hardy M.D. 02/08/23 AMENDED REPORT 02/08/23 0958 PATH REV previously reported as: Michelle barboza Blood manual differential co mment interpretation (narrative result)Ordered By: Srinivasa Francisco on 01-30-2023 Manual differential comment Elliott (Bld) [Interp] COMMENT [facility] Comment on above: LYMPHOPENIA NOTED Absolute lymphocyte countOrd ered By: Michelle Olea on 01-16-2023 Lymphocytes Auto (Unsp spec) [#/Vol] 0.40 10*3/uL 0.83-4.51 [facility] Basophil percentageOrdered B y: Michelle Olea on 01-16-2023 Basophils/100 WBC (Bld) 0.7 % 0-1 [facility] Bilirubin [Mass/Vol] 1.00 mg/dL 0.20-1.00 [facility] Comment on above: For patients on eltr ombopag therapy, use of Dimension [place] TBIL is not recommended. Chloride [Moles/Vol] 107 mmol/L 98-107 [facility] Eosinophils/100 WBC (Bld) 1.9 % 0-5 [facility] Glucose [Mass/Vol] 94 mg/dL 74-106 [facility] Neutrophils (Bld) [#/Vol] 3.3 10*3/uL 2.0-7.7 [facility] Neutrophils/100 WBC (Bld) 76.7 % 47-70 [facility] Potassium [Moles/Vol] 3.6 mmol/L 3.5-5.1 [facility] Protein [Mass/Vol] 6.5 g/dL 6.4-8.2 [facility] Sodium [Moles/Vol] 137 mmol/L 136-145 [facility] WBC (Bld) [#/Vol] 4.3 10*3/uL 4.4-11.0 [facility] Blood erythrocytes count (nu mber/volume)Ordered By: Michelle Olea on 01-16-2023 RBC (Bld) [#/Vol] 4.16 10*6/uL 4.2-5.4 [facility] Blood hemoglobin measurement (mass/volume)Ordered By: Michelle Olea on 01-16-2023 Hemoglobin (Bld) [Mass/Vol] 12.3 g/dL 12.0-15.0 [facility] Blood lymphocytes/100 leukoc ytesOrdered By: Michelle Olea on 01-16-2023 Lymphocytes/100 WBC (Bld) 9.4 % 19-41 [facility] Blood manual differential co mment interpretation (narrative result)Ordered By: Michelle Olea on 01-16-2023 Manual differential comment Elliott (Bld) [Interp] SCANNED [facility] Blood monocytes/100 leukocyt esOrdered By: Michelle Olea on 01-16-2023 Monocytes/100 WBC (Bld) 10.6 % 0-10 [facility] Blood platelet mean volumeOr dered By: Michelle Olea on 01-16-2023 Platelet mean volume (Bld) [Entitic vol] 9.3 fL 6.2-12.0 [facility] Determination of erythrocyte mean corpuscular volume (MCV)Ordered By: Michelle Olea on 01-16-2023 MCV (RBC) [Entitic vol] 91.6 fL 81-99 [facility] Hematocrit Auto (Bld) [Volum e fraction]Ordered By: Michelle Olea on 01-16-2023 Hematocrit (Bld) [Volume fraction] 38.1 % 37-47 [facility] Laboratory - Chemistry and C hemistry - challengeOrdered By: Michelle Olea on 01-16-2023 ALP [Catalytic activity/Vol] 62 U/L 45-117 [facility] ALT [Catalytic activity/Vol] 11 U/L 13-56 [facility] CO2 [Moles/Vol] 27.0 mmol/L 21.0-32.0 [facility] Globulin (S) [Mass/Vol] 3.7 g/dL 2.2-4.2 [facility] Urea nitrogen/Creatinine [Mass ratio] 12.1 mg/mg 10-20 [facility] Laboratory - Hematology and Cell countsOrdered By: Michelle Olea on 01-16-2023 Erythrocyte distribution width (RBC) [Entitic vol] 42.6 fL 35.1-43.9 [facility] Erythrocyte distribution width (RBC) [Ratio] 13.1 % 11.6-14.6 [facility] Immature granulocytes/100 WBC (Bld) 0.700 % 0.0-0.9 [facility] Comment on above: IG% - Immature Granu locytes (promyelocytes, myelocytes and metamyelocytes) > 1% indicates that a LEFT SHIFT is Present. MCH (RBC) [Entitic mass] 29.6 pg 27.0-32.0 [facility] Nucleated RBC/100 WBC (Bld) [Ratio] 0 % 0-5 [facility] MCHC Auto (RBC) [Mass/Vol]Or dered By: Michelle Olea on 01-16-2023 MCHC (RBC) [Mass/Vol] 32.3 g/dL 32-36 [facility] No Panel InformationOrdered By: Michelle Olea on 01-16-2023 Estimated Creatinine Clearance Calc 46.43 ml/min [facility] Estimated GFR (MDRD) Amer 114 mL/min >60 [facility] Comment on above: GFR Calc Estimated GFR (MDRD) Non-Af Amer 94 mL/min >60 [facility] Comment on above: Non- GFR Calc Platelets bldOrdered By: Rojas Olea on 01-16-2023 Platelets (Bld) [#/Vol] 223 10*3/uL 150-450 [facility] Review by pathologistOrdered By: Michelle Olea on 01-16-2023 Pathologist review Elliott (Unsp spec) [Interp] October [facility] Pathologist review Elliott (Unsp spec) [Interp] Reviewed [facility] Comment on above: Previous reported re sult: October tamra Edited by: RGOOD on 01/16/23:1322LymphopeniaClinical correlation suggested.Joe Moore D.O. 01/16/23 AMENDED REPORT 01/16/23 1322 PATH REV previously reported as: October Serum or plasma albumin eun urement (mass/volume)Ordered By: Michelle Olea on 01-16-2023 Albumin [Mass/Vol] 2.8 g/dL 3.2-5.0 [facility] Serum or plasma albumin/glob ulin mass ratioOrdered By: Michelle Olea on 01-16-2023 Albumin/Globulin [Mass ratio] 0.8 {ratio} 0.9-2.4 [facility] Serum or plasma calcium eun urement (mass/volume)Ordered By: Michelle Olae on 01-16-2023 Calcium [Mass/Vol] 8.5 mg/dL 8.5-10.1 [facility] Serum or plasma creatinine m easurement (mass/volume)Ordered By: Michelle Olea on 01-16-2023 Creatinine [Mass/Vol] 0.66 mg/dL 0.55-1.02 [facility] Comment on above: The validity of the calculated GFR & GFRAA in patients over 70 years has not been determined. Clinical correlation is essential. Serum or plasma urea nitroge n measurement (mass/volume)Ordered By: Michelle Olea on 01-16-2023 Urea nitrogen [Mass/Vol] 8 mg/dL 7-18 [facility] Thin prep Papanicolaou smear with manual screeningOrdered By: Michelle Olea on 01-16-2023 Thin prep Papanicolaou smear with manual screening 13 U/L 15-37 [facility] Thin prep Papanicolaou smear with manual screening 3 5-15 [facility] Absolute lymphocyte countOrd ered By: Conner Mcclure on 01-15-2023 Lymphocytes Auto (Unsp spec) [#/Vol] 0.36 10*3/uL 0.83-4.51 [facility] Anaerobic cultureOrdered By: Conner Mcclure on 01-15-2023 Bacteria identified Anaer cx Nom (Unsp spec) No anaerobic bacteria isolated. [facility] Bacteria identified Cx Nom ( Wound)Ordered By: Michelle Olea on 01-15-2023 Wound Culture Pasteurella multocida [facility] Basophil percentageOrdered B y: Michelle Emmie on 01-15-2023 Basophil percentage 2.9 mg/dL 2.5-4.9 [facility] Basophil percentageOrdered B y: Conner Mcclure on 01-15-2023 Basophils/100 WBC (Bld) 0.8 % 0-1 [facility] Bilirubin [Mass/Vol] 1.50 mg/dL 0.20-1.00 [facility] Comment on above: For patients on eltr ombopag therapy, use of Dimension [place] TBIL is not recommended. Chloride [Moles/Vol] 103 mmol/L 98-107 [facility] Eosinophils/100 WBC (Bld) 1.0 % 0-5 [facility] Glucose [Mass/Vol] 101 mg/dL 74-106 [facility] Comment on above: Fasting Glucose resu lt from 100 to 125 mg/dL suggests IMPAIRED HOMEOSTASIS per A.D.A. criteria. Lactate [Moles/Vol] 0.8 mmol/L 0.4-2.0 [facility] Neutrophils (Bld) [#/Vol] 5.1 10*3/uL 2.0-7.7 [facility] Neutrophils/100 WBC (Bld) 83.4 % 47-70 [facility] Potassium [Moles/Vol] 3.6 mmol/L 3.5-5.1 [facility] Protein [Mass/Vol] 7.0 g/dL 6.4-8.2 [facility] Sodium [Moles/Vol] 140 mmol/L 136-145 [facility] WBC (Bld) [#/Vol] 6.2 10*3/uL 4.4-11.0 [facility] Blood erythrocytes count (nu mber/volume)Ordered By: Conner Mcclure on 01-15-2023 RBC (Bld) [#/Vol] 4.56 10*6/uL 4.2-5.4 [facility] Blood hemoglobin measurement (mass/volume)Ordered By: Conner Mcclure on 01-15-2023 Hemoglobin (Bld) [Mass/Vol] 13.5 g/dL 12.0-15.0 [facility] Blood lymphocytes/100 leukoc ytesOrdered By: Conner Mcclure on 01-15-2023 Lymphocytes/100 WBC (Bld) 5.9 % 19-41 [facility] Blood manual differential co mment interpretation (narrative result)Ordered By: Conner Mcclure on 01-15-2023 Manual differential comment Elliott (Bld) [Interp] SCANNED [facility] Comment on above: LYMPHOPENIA PRESENT Blood monocytes/100 leukocyt esOrdered By: Conner Mcclure on 01-15-2023 Monocytes/100 WBC (Bld) 8.1 % 0-10 [facility] Blood platelet mean volumeOr dered By: Conner Mcclure on 01-15-2023 Platelet mean volume (Bld) [Entitic vol] 9.8 fL 6.2-12.0 [facility] Determination of erythrocyte mean corpuscular volume (MCV)Ordered By: Conner Mcclure on 01-15-2023 MCV (RBC) [Entitic vol] 90.6 fL 81-99 [facility] Erythrocyte sedimentation ra teOrdered By: Conner Mcclure on 01-15-2023 ESR (Bld) [Velocity] 34 mm/h 0-30 [facility] Gram stain for investigation of transfusion reactionOrdered By: Michelle Olea on 01-15-2023 Microscopic observation Gram stain Nom (Unsp spec) [facility] Hematocrit Auto (Bld) [Volum e fraction]Ordered By: Conner Mcclure on 01-15-2023 Hematocrit (Bld) [Volume fraction] 41.3 % 37-47 [facility] INR in Blood by Coagulation assayOrdered By: Conner Mcclure on 01-15-2023 INR Coag (Bld) [Relative time] 1.0 {INR} [facility] Laboratory - Chemistry and C hemistry - challengeOrdered By: Michelle Olea on 01-15-2023 Magnesium [Mass/Vol] 2.4 mg/dL 1.6-2.6 [facility] Laboratory - Chemistry and C hemistry - challengeOrdered By: Conner Mcclure on 01-15-2023 ALP [Catalytic activity/Vol] 73 U/L 45-117 [facility] ALT [Catalytic activity/Vol] 15 U/L 13-56 [facility] CO2 [Moles/Vol] 30.0 mmol/L 21.0-32.0 [facility] Globulin (S) [Mass/Vol] 3.8 g/dL 2.2-4.2 [facility] Urea nitrogen/Creatinine [Mass ratio] 15.6 mg/mg 10-20 [facility] Laboratory - CoagulationOrde red By: Conner Mcclure on 01-15-2023 aPTT Coag (Bld) [Time] 31.4 s 24.1-36.2 [facility] PT Coag (PPP) [Time] 12.9 s 11.7-14.9 [facility] Laboratory - Hematology and Cell countsOrdered By: Conner Mcclure on 01-15-2023 Erythrocyte distribution width (RBC) [Entitic vol] 42.5 fL 35.1-43.9 [facility] Erythrocyte distribution width (RBC) [Ratio] 12.9 % 11.6-14.6 [facility] Immature granulocytes/100 WBC (Bld) 0.800 % 0.0-0.9 [facility] Comment on above: IG% - Immature Granu locytes (promyelocytes, myelocytes and metamyelocytes) > 1% indicates that a LEFT SHIFT is Present. MCH (RBC) [Entitic mass] 29.6 pg 27.0-32.0 [facility] Nucleated RBC/100 WBC (Bld) [Ratio] 0 % 0-5 [facility] Laboratory - Microbiology an d Antimicrobial susceptibilityOrdered By: Conner Mcclure on 01-15-2023 Bacteria identified Cx Nom (Bld) No growth in 5 days. [facility] Bacteria identified Cx Nom (Bld) No growth in 5 days. [facility] MCHC Auto (RBC) [Mass/Vol]Or dered By: Conner Mcclure on 01-15-2023 MCHC (RBC) [Mass/Vol] 32.7 g/dL 32-36 [facility] No Panel InformationOrdered By: Michelle Olea on 01-15-2023 Methicillin-Resist S.aureus DNA PCR Negative Negative [facility] No Panel InformationOrdered By: Conner Mcclure on 01-15-2023 Estimated Creatinine Clearance Calc 55.94 ml/min [facility] Estimated GFR (MDRD) Amer 87 mL/min >60 [facility] Comment on above: GFR Calc Estimated GFR (MDRD) Non-Af Amer 72 mL/min >60 [facility] Comment on above: Non- GFR Calc Platelets bldOrdered By: Shashi Mcclure on 01-15-2023 Platelets (Bld) [#/Vol] 189 10*3/uL 150-450 [facility] Serum or plasma C reactive p rotein measurement (mass/volume)Ordered By: Conner Mcclure on 01-15-2023 CRP [Mass/Vol] 115.00 mg/L 0.0-3.0 [facility] Comment on above: C-Reactive Protein ( CRP) provides useful information for thediagnosis, therapy and monitoring of inflammatory processesand associated diseases. For the evaluation of Relative Riskfor Cardiovascular Disease, a High Sensitivity CRP (HSCRP)should be ordered. Serum or plasma albumin eun urement (mass/volume)Ordered By: Conner Mcclure on 01-15-2023 Albumin [Mass/Vol] 3.2 g/dL 3.2-5.0 [facility] Serum or plasma albumin/glob ulin mass ratioOrdered By: Conner Mcclure on 01-15-2023 Albumin/Globulin [Mass ratio] 0.8 {ratio} 0.9-2.4 [facility] Serum or plasma calcium eun urement (mass/volume)Ordered By: Conner Mcclure on 01-15-2023 Calcium [Mass/Vol] 8.7 mg/dL 8.5-10.1 [facility] Serum or plasma creatinine m easurement (mass/volume)Ordered By: Conner Mcclure on 01-15-2023 Creatinine [Mass/Vol] 0.83 mg/dL 0.55-1.02 [facility] Comment on above: The validity of the calculated GFR & GFRAA in patients over 70 years has not been determined. Clinical correlation is essential. Serum or plasma urea nitroge n measurement (mass/volume)Ordered By: Conner Mcclure on 01-15-2023 Urea nitrogen [Mass/Vol] 13 mg/dL 7-18 [facility] Staphylococcus aureus DNA de tection by probe and target amplification methodOrdered By: Michelle Olea on 01-15-2023 S. aureus DNA ROMULO+probe Ql (Unsp spec) Negative Negative [facility] Thin prep Papanicolaou smear with manual screeningOrdered By: Conner Le on 01-15-2023 Thin prep Papanicolaou smear with manual screening 15 U/L 15-37 [facility] Thin prep Papanicolaou smear with manual screening 7 5-15 [facility] Absolute lymphocyte countOrd ered By: Srinivasa Francisco on 01-09-2023 Lymphocytes Auto (Unsp spec) [#/Vol] 0.68 10*3/uL 0.83-4.51 [facility] Basophil percentageOrdered B y: Srinivasa Francisco on 01-09-2023 Basophil percentage 3.5 mg/dL 2.5-4.9 [facility] Basophils/100 WBC (Bld) 1.0 % 0-1 [facility] Chloride [Moles/Vol] 106 mmol/L 98-107 [facility] Eosinophils/100 WBC (Bld) 2.9 % 0-5 [facility] Glucose [Mass/Vol] 116 mg/dL 74-106 [facility] Comment on above: Fasting Glucose resu lt from 100 to 125 mg/dL suggests IMPAIRED HOMEOSTASIS per A.D.A. criteria. Neutrophils (Bld) [#/Vol] 2.8 10*3/uL 2.0-7.7 [facility] Neutrophils/100 WBC (Bld) 68.5 % 47-70 [facility] Potassium [Moles/Vol] 3.8 mmol/L 3.5-5.1 [facility] Sodium [Moles/Vol] 139 mmol/L 136-145 [facility] WBC (Bld) [#/Vol] 4.1 10*3/uL 4.4-11.0 [facility] Blood erythrocytes count (nu mber/volume)Ordered By: Srinivasa Francisco on 01-09-2023 RBC (Bld) [#/Vol] 4.46 10*6/uL 4.2-5.4 [facility] Blood hemoglobin measurement (mass/volume)Ordered By: Srinivasa Francisco on 01-09-2023 Hemoglobin (Bld) [Mass/Vol] 12.9 g/dL 12.0-15.0 [facility] Blood lymphocytes/100 leukoc ytesOrdered By: [facility] on 01-09-2023 Lymphocytes/100 WBC (Bld) 16.6 % 19-41 [facility] Blood monocytes/100 leukocyt esOrdered By: [facility] on 01-09-2023 Monocytes/100 WBC (Bld) 9.8 % 0-10 [facility] Blood platelet mean volumeOr dered By: Srinivasa Francisco on 01-09-2023 Platelet mean volume (Bld) [Entitic vol] 9.7 fL 6.2-12.0 [facility] Determination of erythrocyte mean corpuscular volume (MCV)Ordered By: [facility] on 01-09-2023 MCV (RBC) [Entitic vol] 91.5 fL 81-99 [facility] Hematocrit Auto (Bld) [Volum e fraction]Ordered By: [facility] Maryam on 01-09-2023 Hematocrit (Bld) [Volume fraction] 40.8 % 37-47 [facility] Laboratory - Chemistry and C hemistry - challengeOrdered By: [facility] Maryam on 01-09-2023 CO2 [Moles/Vol] 29.0 mmol/L 21.0-32.0 [facility] Magnesium [Mass/Vol] 2.1 mg/dL 1.6-2.6 [facility] Urea nitrogen/Creatinine [Mass ratio] 18.3 mg/mg 10-20 [facility] Laboratory - Hematology and Cell countsOrdered By: [facility] Maryam on 01-09-2023 Erythrocyte distribution width (RBC) [Entitic vol] 41.1 fL 35.1-43.9 [facility] Erythrocyte distribution width (RBC) [Ratio] 12.3 % 11.6-14.6 [facility] Immature granulocytes/100 WBC (Bld) 1.200 % 0.0-0.9 [facility] Comment on above: IG% - Immature Granu locytes (promyelocytes, myelocytes and metamyelocytes) > 1% indicates that a LEFT SHIFT is Present. MCH (RBC) [Entitic mass] 28.9 pg 27.0-32.0 [facility] Nucleated RBC/100 WBC (Bld) [Ratio] 0 % 0-5 [facility] MCHC Auto (RBC) [Mass/Vol]Or dered By: Srinivasa Francisco on 01-09-2023 MCHC (RBC) [Mass/Vol] 31.6 g/dL 32-36 [facility] No Panel InformationOrdered By: Srinivasa Francisco on 01-09-2023 Estimated Creatinine Clearance Calc 46.43 ml/min [facility] Estimated GFR (MDRD) Amer 126 mL/min >60 [facility] Comment on above: GFR Calc Estimated GFR (MDRD) Non-Af Amer 104 mL/min >60 [facility] Comment on above: Non- GFR Calc Platelets bldOrdered By: Keegan Francisco on 01-09-2023 Platelets (Bld) [#/Vol] 240 10*3/uL 150-450 [facility] Serum or plasma calcium eun urement (mass/volume)Ordered By: Srinivasa Francisco on 01-09-2023 Calcium [Mass/Vol] 8.5 mg/dL 8.5-10.1 [facility] Serum or plasma creatinine m easurement (mass/volume)Ordered By: Srinivasa Francisco on 01-09-2023 Creatinine [Mass/Vol] 0.60 mg/dL 0.55-1.02 [facility] Comment on above: The validity of the calculated GFR & GFRAA in patients over 70 years has not been determined. Clinical correlation is essential. Serum or plasma urea nitroge n measurement (mass/volume)Ordered By: Srinivasa Francisco on 01-09-2023 Urea nitrogen [Mass/Vol] 11 mg/dL 7-18 [facility] Thin prep Papanicolaou smear with manual screeningOrdered By: Srinivasa Francisco on 01-09-2023 Thin prep Papanicolaou smear with manual screening 4 5-15 [facility] Absolute lymphocyte countOrd ered By: Srinivasa Francisco on 01-02-2023 Lymphocytes Auto (Unsp spec) [#/Vol] 1.42 10*3/uL 0.83-4.51 [facility] Basophil percentageOrdered B y: Srinivasa Francisco on 01-02-2023 Basophils/100 WBC (Bld) 1.0 % 0-1 [facility] Bilirubin [Mass/Vol] 0.90 mg/dL 0.20-1.00 [facility] Comment on above: For patients on eltr ombopag therapy, use of Dimension [place] TBIL is not recommended. Chloride [Moles/Vol] 106 mmol/L 98-107 [facility] Eosinophils/100 WBC (Bld) 3.6 % 0-5 [facility] Glucose [Mass/Vol] 100 mg/dL 74-106 [facility] Comment on above: Fasting Glucose resu lt from 100 to 125 mg/dL suggests IMPAIRED HOMEOSTASIS per A.D.A. criteria. Neutrophils (Bld) [#/Vol] 3.0 10*3/uL 2.0-7.7 [facility] Neutrophils/100 WBC (Bld) 57.6 % 47-70 [facility] Potassium [Moles/Vol] 3.5 mmol/L 3.5-5.1 [facility] Protein [Mass/Vol] 7.8 g/dL 6.4-8.2 [facility] Sodium [Moles/Vol] 139 mmol/L 136-145 [facility] WBC (Bld) [#/Vol] 5.3 10*3/uL 4.4-11.0 [facility] Blood erythrocytes count (nu mber/volume)Ordered By: Srinivasa Francisco on 01-02-2023 RBC (Bld) [#/Vol] 5.28 10*6/uL 4.2-5.4 [facility] Blood hemoglobin measurement (mass/volume)Ordered By: Srinivasa Francisco on 01-02-2023 Hemoglobin (Bld) [Mass/Vol] 15.4 g/dL 12.0-15.0 [facility] Blood lymphocytes/100 leukoc ytesOrdered By: Srinivasa Francisco on 01-02-2023 Lymphocytes/100 WBC (Bld) 27.0 % 19-41 [facility] Blood monocytes/100 leukocyt esOrdered By: Srinivasa Francisco on 01-02-2023 Monocytes/100 WBC (Bld) 10.6 % 0-10 [facility] Blood platelet mean volumeOr dered By: Srinivasa Francisco on 01-02-2023 Platelet mean volume (Bld) [Entitic vol] 10.1 fL 6.2-12.0 [facility] Determination of erythrocyte mean corpuscular volume (MCV)Ordered By: Srinivasa Francisco on 01-02-2023 MCV (RBC) [Entitic vol] 89.0 fL 81-99 [facility] Hematocrit Auto (Bld) [Volum e fraction]Ordered By: Srinivasa Francisco on 01-02-2023 Hematocrit (Bld) [Volume fraction] 47.0 % 37-47 [facility] Laboratory - Chemistry and C hemistry - challengeOrdered By: [facility] Maryam on 01-02-2023 ALP [Catalytic activity/Vol] 86 U/L 45-117 [facility] ALT [Catalytic activity/Vol] 11 U/L 13-56 [facility] CO2 [Moles/Vol] 30.0 mmol/L 21.0-32.0 [facility] Globulin (S) [Mass/Vol] 4.1 g/dL 2.2-4.2 [facility] Urea nitrogen/Creatinine [Mass ratio] 12.2 mg/mg 10-20 [facility] Laboratory - Hematology and Cell countsOrdered By: [facility] Maryam on 01-02-2023 Erythrocyte distribution width (RBC) [Entitic vol] 40.3 fL 35.1-43.9 [facility] Erythrocyte distribution width (RBC) [Ratio] 12.4 % 11.6-14.6 [facility] Immature granulocytes/100 WBC (Bld) 0.200 % 0.0-0.9 [facility] Comment on above: IG% - Immature Granu locytes (promyelocytes, myelocytes and metamyelocytes) > 1% indicates that a LEFT SHIFT is Present. MCH (RBC) [Entitic mass] 29.2 pg 27.0-32.0 [facility] Nucleated RBC/100 WBC (Bld) [Ratio] 0 % 0-5 [facility] MCHC Auto (RBC) [Mass/Vol]Or dered By: Srinivasa Francisco on 01-02-2023 MCHC (RBC) [Mass/Vol] 32.8 g/dL 32-36 [facility] No Panel InformationOrdered By: Srinivasa Francisco on 01-02-2023 Estimated Creatinine Clearance Calc 56.62 ml/min [facility] Estimated GFR (MDRD) Amer 88 mL/min >60 [facility] Comment on above: GFR Calc Estimated GFR (MDRD) Non-Af Amer 73 mL/min >60 [facility] Comment on above: Non- GFR Calc Platelets bldOrdered By: Keegan marilyn Francisco on 01-02-2023 Platelets (Bld) [#/Vol] 268 10*3/uL 150-450 [facility] Serum or plasma albumin eun urement (mass/volume)Ordered By: Srinivasa Francisco on 01-02-2023 Albumin [Mass/Vol] 3.7 g/dL 3.2-5.0 [facility] Serum or plasma albumin/glob ulin mass ratioOrdered By: Srinivasa Francisco on 01-02-2023 Albumin/Globulin [Mass ratio] 0.9 {ratio} 0.9-2.4 [facility] Serum or plasma calcium eun urement (mass/volume)Ordered By: Srinivasa Francisco on 01-02-2023 Calcium [Mass/Vol] 9.5 mg/dL 8.5-10.1 [facility] Serum or plasma creatinine m easurement (mass/volume)Ordered By: Srinivasa Francisco on 01-02-2023 Creatinine [Mass/Vol] 0.82 mg/dL 0.55-1.02 [facility] Comment on above: The validity of the calculated GFR & GFRAA in patients over 70 years has not been determined. Clinical correlation is essential. Serum or plasma urea nitroge n measurement (mass/volume)Ordered By: Srinivasa Francisco on 01-02-2023 Urea nitrogen [Mass/Vol] 10 mg/dL 7-18 [facility] Thin prep Papanicolaou smear with manual screeningOrdered By: Srinivasa Francisco on 01-02-2023 Thin prep Papanicolaou smear with manual screening 21 U/L 15-37 [facility] Thin prep Papanicolaou smear with manual screening 3 5-15 [facility] Laboratory - Chemistry and C hemistry - challengeOrdered By: Roberto Guidry on 12-26-2022 Free T4 [Mass/Vol] 1.23 ng/dL 0.76-1.46 [facility] No Panel InformationOrdered By: Roberto Guidry on 12-26-2022 Free Triiodothyronine (T3) pg/dL 1.8 pg/mL 2.18-3.98 [facility] Thyroid Stimulating Hormone (TSH) 11.00 uIU/mL 0.358-3.74 [facility] Bacteria identified Respirat ory culture Nom (Unsp spec)Ordered By: Dr. Larose on 11-14-2022 Respiratory Culture Enterobacter cloacae complex [facility] Respiratory Culture Presumptive C albicans [facility] Bacteria identified Respirat ory culture Nom (Unsp spec)Ordered By: Kurt Larose on 11-10-2022 Respiratory Culture Enterobacter cloacae complex [facility] Respiratory Culture Presumptive C albicans [facility] Cytology report of Body flui d Cyto stainOrdered By: Dr. Larose on 11-10-2022 Cytology report Cyto stain Doc (Body fld) SEE PATHOLOGY REPORT [facility] Comment on above: Specimen submitted t o Anatomical Pathology Department for testing. Gram stain for investigation of transfusion reactionOrdered By: Dr. Larose on 11-10-2022 Microscopic observation Gram stain Nom (Unsp spec) [facility] Absolute lymphocyte countOrd ered By: Dr. Huntley on 11-07-2022 Lymphocytes Auto (Unsp spec) [#/Vol] 0.94 10*3/uL 0.83-4.51 [facility] Basophil percentageOrdered B y: Dr. Huntley on 11-07-2022 Basophils/100 WBC (Bld) 0.2 % 0-1 [facility] Chloride [Moles/Vol] 107 mmol/L 98-107 [facility] Eosinophils/100 WBC (Bld) 0.0 % 0-5 [facility] Glucose [Mass/Vol] 146 mg/dL 74-106 [facility] Comment on above: Fasting Glucose resu lt greater than or equal to 126 mg/dL suggests DIABETES MELLITUS per A.D.A. criteria. Neutrophils (Bld) [#/Vol] 4.9 10*3/uL 2.0-7.7 [facility] Neutrophils/100 WBC (Bld) 81.6 % 47-70 [facility] Potassium [Moles/Vol] 3.5 mmol/L 3.5-5.1 [facility] Sodium [Moles/Vol] 138 mmol/L 136-145 [facility] WBC (Bld) [#/Vol] 6.0 10*3/uL 4.4-11.0 [facility] Blood erythrocytes count (nu mber/volume)Ordered By: Dr. Huntley on 11-07-2022 RBC (Bld) [#/Vol] 5.07 10*6/uL 4.2-5.4 [facility] Blood hemoglobin measurement (mass/volume)Ordered By: Dr. Huntley on 11-07-2022 Hemoglobin (Bld) [Mass/Vol] 14.8 g/dL 12.0-15.0 [facility] Blood lymphocytes/100 leukoc ytesOrdered By: Dr. Huntley on 11-07-2022 Lymphocytes/100 WBC (Bld) 15.7 % 19-41 [facility] Blood monocytes/100 leukocyt esOrdered By: Dr. Huntley on 11-07-2022 Monocytes/100 WBC (Bld) 2.0 % 0-10 [facility] Blood platelet mean volumeOr dered By: Dr. Huntley on 11-07-2022 Platelet mean volume (Bld) [Entitic vol] 9.9 fL 6.2-12.0 [facility] Determination of erythrocyte mean corpuscular volume (MCV)Ordered By: Dr. Huntley on 11-07-2022 MCV (RBC) [Entitic vol] 89.2 fL 81-99 [facility] Hematocrit Auto (Bld) [Volum e fraction]Ordered By: Dr. Huntley on 11-07-2022 Hematocrit (Bld) [Volume fraction] 45.2 % 37-47 [facility] Laboratory - Chemistry and C hemistry - challengeOrdered By: Dr. Huntley on 11-07-2022 CO2 [Moles/Vol] 24.0 mmol/L 21.0-32.0 [facility] Urea nitrogen/Creatinine [Mass ratio] 26.2 mg/mg 10-20 [facility] Laboratory - Hematology and Cell countsOrdered By: Dr. Huntley on 11-07-2022 Erythrocyte distribution width (RBC) [Entitic vol] 39.2 fL 35.1-43.9 [facility] Erythrocyte distribution width (RBC) [Ratio] 12.0 % 11.6-14.6 [facility] Immature granulocytes/100 WBC (Bld) 0.500 % 0.0-0.9 [facility] Comment on above: IG% - Immature Granu locytes (promyelocytes, myelocytes and metamyelocytes) > 1% indicates that a LEFT SHIFT is Present. MCH (RBC) [Entitic mass] 29.2 pg 27.0-32.0 [facility] Nucleated RBC/100 WBC (Bld) [Ratio] 0 % 0-5 [facility] MCHC Auto (RBC) [Mass/Vol]Or dered By: Dr. Huntley on 11-07-2022 MCHC (RBC) [Mass/Vol] 32.7 g/dL 32-36 [facility] No Panel InformationOrdered By: Dr. Huntley on 11-07-2022 Estimated Creatinine Clearance Calc 46.43 ml/min [facility] Estimated GFR (MDRD) Amer 96 mL/min >60 [facility] Comment on above: GFR Calc Estimated GFR (MDRD) Non-Af Amer 79 mL/min >60 [facility] Comment on above: Non- GFR Calc Platelets bldOrdered By: Dr. Huntley on 11-07-2022 Platelets (Bld) [#/Vol] 305 10*3/uL 150-450 [facility] Serum or plasma calcium eun urement (mass/volume)Ordered By: Dr. Huntley on 11-07-2022 Calcium [Mass/Vol] 9.2 mg/dL 8.5-10.1 [facility] Serum or plasma creatinine m easurement (mass/volume)Ordered By: Dr. Huntley on 11-07-2022 Creatinine [Mass/Vol] 0.76 mg/dL 0.55-1.02 [facility] Comment on above: The validity of the calculated GFR & GFRAA in patients over 70 years has not been determined. Clinical correlation is essential. Serum or plasma urea nitroge n measurement (mass/volume)Ordered By: Dr. Huntley on 11-07-2022 Urea nitrogen [Mass/Vol] 20 mg/dL 7-18 [facility] Thin prep Papanicolaou smear with manual screeningOrdered By: Dr. Huntley on 11-07-2022 Thin prep Papanicolaou smear with manual screening 7 5-15 [facility] Absolute lymphocyte countOrd ered By: Dr. Grace on 11-06-2022 Lymphocytes Auto (Unsp spec) [#/Vol] 1.89 10*3/uL 0.83-4.51 [facility] Assessment of wrist artery p atency prior to arterial punctureOrdered By: Dr. Grace on 11-06-2022 Arterial patency Wrist artery --pre arterial puncture Positive [facility] Base excessOrdered By: Dr. Hai farah on 11-06-2022 Base excess Calc (BldV) [Moles/Vol] 1 mmol/L -2-2 [facility] Basophil percentageOrdered B y: Dr. Grace on 11-06-2022 Basophil percentage 25.7 mmol/L 22-26 [facility] Basophils/100 WBC (Bld) 90 % 95-99 [facility] Basophils/100 WBC (Bld) 1.2 % 0-1 [facility] Bilirubin [Mass/Vol] 0.90 mg/dL 0.20-1.00 [facility] Comment on above: For patients on eltr ombopag therapy, use of Dimension [place] TBIL is not recommended. Chloride [Moles/Vol] 106 mmol/L 98-107 [facility] Eosinophils/100 WBC (Bld) 1.9 % 0-5 [facility] Glucose [Mass/Vol] 88 mg/dL 74-106 [facility] Neutrophils (Bld) [#/Vol] 3.3 10*3/uL 2.0-7.7 [facility] Neutrophils/100 WBC (Bld) 54.9 % 47-70 [facility] Potassium [Moles/Vol] 3.7 mmol/L 3.5-5.1 [facility] Protein [Mass/Vol] 7.6 g/dL 6.4-8.2 [facility] Sodium [Moles/Vol] 135 mmol/L 136-145 [facility] WBC (Bld) [#/Vol] 5.9 10*3/uL 4.4-11.0 [facility] Blood erythrocytes count (nu mber/volume)Ordered By: Dr. Grace on 11-06-2022 RBC (Bld) [#/Vol] 4.90 10*6/uL 4.2-5.4 [facility] Blood hemoglobin measurement (mass/volume)Ordered By: Dr. Grace on 11-06-2022 Hemoglobin (Bld) [Mass/Vol] 14.7 g/dL 12.0-15.0 [facility] Blood lymphocytes/100 leukoc ytesOrdered By: Dr. Grace on 11-06-2022 Lymphocytes/100 WBC (Bld) 31.9 % 19-41 [facility] Blood monocytes/100 leukocyt esOrdered By: Dr. Grace on 11-06-2022 Monocytes/100 WBC (Bld) 9.9 % 0-10 [facility] Blood platelet mean volumeOr dered By: Dr. Grace on 11-06-2022 Platelet mean volume (Bld) [Entitic vol] 9.8 fL 6.2-12.0 [facility] CO2 (BldA) [Partial pressure ]Ordered By: Dr. Grace on 11-06-2022 CO2 (Bld) [Partial pressure] 38.5 mm[Hg] 35-45 [facility] Determination of erythrocyte mean corpuscular volume (MCV)Ordered By: Dr. Grace on 11-06-2022 MCV (RBC) [Entitic vol] 89.2 fL 81-99 [facility] Hematocrit Auto (Bld) [Volum e fraction]Ordered By: Dr. Grace on 11-06-2022 Hematocrit (Bld) [Volume fraction] 43.7 % 37-47 [facility] INR in Blood by Coagulation assayOrdered By: Dr. Grace on 11-06-2022 INR Coag (Bld) [Relative time] 1.0 {INR} [facility] Laboratory - Chemistry and C hemistry - challengeOrdered By: Dr. Grace on 11-06-2022 ALP [Catalytic activity/Vol] 83 U/L 45-117 [facility] ALT [Catalytic activity/Vol] 10 U/L 13-56 [facility] CO2 [Moles/Vol] 27.0 mmol/L 21.0-32.0 [facility] Globulin (S) [Mass/Vol] 3.9 g/dL 2.2-4.2 [facility] Urea nitrogen/Creatinine [Mass ratio] 23.3 mg/mg 10-20 [facility] Laboratory - CoagulationOrde red By: Dr. Grace on 11-06-2022 aPTT Coag (Bld) [Time] 31.6 s 24.1-36.2 [facility] PT Coag (PPP) [Time] 12.9 s 11.7-14.9 [facility] Laboratory - Hematology and Cell countsOrdered By: Dr. Grace on 11-06-2022 Erythrocyte distribution width (RBC) [Entitic vol] 39.7 fL 35.1-43.9 [facility] Erythrocyte distribution width (RBC) [Ratio] 12.1 % 11.6-14.6 [facility] Immature granulocytes/100 WBC (Bld) 0.200 % 0.0-0.9 [facility] [facility] Comment on above: IG% - Immature Granu locytes (promyelocytes, myelocytes and metamyelocytes) > 1% indicates that a LEFT SHIFT is Present. MCH (RBC) [Entitic mass] 30.0 pg 27.0-32.0 [facility] Nucleated RBC/100 WBC (Bld) [Ratio] 0 % 0-5 [facility] MCHC Auto (RBC) [Mass/Vol]Or dered By: Dr. Grace on 11-06-2022 MCHC (RBC) [Mass/Vol] 33.6 g/dL 32-36 [facility] No Panel InformationOrdered By: Dr. Grace on 11-06-2022 Blood Gas Sample Site R Radial [facility] Blood Gas Specimen Type ART W [facility] Blood Gas Total CO2 27 mmol/L [facility] Oxygen Delivery Device Room Air [facility] Estimated Creatinine Clearance Calc 46.43 ml/min [facility] Estimated GFR (MDRD) Amer 95 mL/min >60 [facility] Comment on above: GFR Calc Estimated GFR (MDRD) Non-Af Amer 78 mL/min >60 [facility] Comment on above: Non- GFR Calc Oxygen (BldA) [Partial press ure]Ordered By: Dr. Grace on 11-06-2022 Oxygen (Bld) [Partial pressure] 56 mmHG 75-100 [facility] Platelets bldOrdered By: Dr. Grace on 11-06-2022 Platelets (Bld) [#/Vol] 273 10*3/uL 150-450 [facility] Serum or plasma albumin eun urement (mass/volume)Ordered By: Dr. Grace on 11-06-2022 Albumin [Mass/Vol] 3.7 g/dL 3.2-5.0 [facility] Serum or plasma albumin/glob ulin mass ratioOrdered By: Dr. Grace on 11-06-2022 Albumin/Globulin [Mass ratio] 0.9 {ratio} 0.9-2.4 [facility] Serum or plasma calcium eun urement (mass/volume)Ordered By: Dr. Grace on 11-06-2022 Calcium [Mass/Vol] 9.1 mg/dL 8.5-10.1 [facility] Serum or plasma creatinine m easurement (mass/volume)Ordered By: Dr. Grace on 11-06-2022 Creatinine [Mass/Vol] 0.77 mg/dL 0.55-1.02 [facility] Comment on above: The validity of the calculated GFR & GFRAA in patients over 70 years has not been determined. Clinical correlation is essential. Serum or plasma urea nitroge n measurement (mass/volume)Ordered By: Dr. Grace on 11-06-2022 Urea nitrogen [Mass/Vol] 18 mg/dL 7-18 [facility] Thin prep Papanicolaou smear with manual screeningOrdered By: Dr. Grace on 11-06-2022 Thin prep Papanicolaou smear with manual screening 22 U/L 15-37 [facility] Thin prep Papanicolaou smear with manual screening 2 5-15 [facility] pH measurementOrdered By: Dr Nereyda Grace on 11-06-2022 pH (Unsp spec) 7.43 [pH] 7.35-7.45 [facility] Basophil percentageOrdered B y: Minnie Luna on 11-02-2022 Creatinine [Mass/Vol] 1.2 mg/dL 0.55-1.02 [facility] Laboratory - Chemistry and C hemistry - challengeOrdered By: Minnie Luna on 11-02-2022 GFR/1.73 sq M.predicted among non-blacks MDRD (S/P/Bld) [Vol rate/Area] 48.0000 mL/min/{1.73_m2} >60 [facility] CNCOon 11-01-2022 CNCO Letter Text Normal [facility] CNPNon 10-31-2022 [facility] AMOL MCKEON ([id number]) 1950 F DEF Date Time Provider Department 10/31/22 SUSANA LIU [facility] During your visit today, we recorded the following information about you: Susana Liu APRN.[employer] 10/31/2022 12:34 PM Signed Called patient to notify her of her results and that she needed to follow-up with PCP as soon as possible for chest CT. Attempted to call the primary care provider's office several times with no success. Did send them a copy of her chart for review. Patient is aware and will attempt to get a hold of the office. Allergies As of Date: 10/31/2022 Noted Allergy Reaction CHEESE (SEE VEGETABLE GUM) 12/26/2004 CHOCOLATE 12/26/2004 PENICILLINS 12/26/2004 7 - Swelling Comments: SWELLING AT INJECTION SITE Date Reviewed: 10/30/2022 Reviewed by: Kera James MA - Fully Assessed Reason for Visit: Results [95] Prescriptions as of 10/31/2022 - doxycycline (VIBRA-TABS) 100 mg tablet Take 1 tablet by mouth twice daily for 10 days. - benzonatate (TESSALON PERLES) 100 mg capsule Take 1 capsule by mouth every 8 hours as needed for cough (do not chew, please swallow). - albuterol HFA (PROVENTIL HFA, VENTOLIN HFA) 90 mcg/actuation inhaler Inhale 2 Puffs as instructed every 6 hours as needed for wheezing/shortness of breath. - levothyroxine (SYNTHROID) 100 mcg tablet - levothyroxine (SYNTHROID) 50 mcg tablet - clonazePAM (KLONOPIN) 1 mg tablet - aspirin, enteric coated (ASPIRIN, ENTERIC COATED) 81 mg EC tablet Take 81 mg by mouth once daily. Problem List As Of Date: 10/31/2022 (None) Encounter Status:Closed by SUSANA LIU on 10/31/22 Normal [facility] XR CHEST 2V FRONTAL/LATon XR CHEST 2V FRONTAL/LAT * * *Final Repor t* * * DATE OF EXAM: Oct 31 2022 9:37AM WOX 5291 - XR CHEST 2V FRONTAL/LAT / PROCEDURE REASON: SOB (shortness of breath) * * * * Physician Interpretation * * * * EXAMINATION: CHEST RADIOGRAPH (2 VIEW FRONTAL and LATERAL) CLINICAL HISTORY: SOB (shortness of breath) MQ: XC2_6 EXAM DATE/TIME: 10/31/2022 9:37 AM COMPARISON: No relevant prior studies available. RESULT: Lines, tubes, and devices: None. Lungs and pleura: Biapical pleural-parenchymal scarring. There is apparent volume loss in the right hemithorax with hazy airspace opacity posteriorly suggesting right lower lobe atelectatic changes. There is also hazy opacity in the right upper lung zone with rightward tracheal deviation. Cardiomediastinal silhouette: Heart normal in size. Aorta mildly tortuous. Bones and soft tissues: Degenerative changes are present within the thoracic spine. IMPRESSION: Apparent volume loss in the right hemithorax with hazy airspace opacity posteriorly suggesting right lower lobe atelectatic changes. There is also hazy opacity in the right upper lung zone with rightward tracheal deviation. Further evaluation with contrast-enhanced CT chest to exclude lesion in the right lower lobe/bronchus may be made. ACTIONABLE RESULT: FOLLOW-UP Acuity: Actionable Findings: Thoracic-Other Routing Code: CT_1 Recommendation: CT Chest W IVCON Time Frame: as soon as possible, when the patient's clinical state allows. COMMUNICATION: Results will be communicated with the ordering provider via [employer] staff message or phone message by [employer] within 2 business days of report finalization. ========= Algorithms for management of incidental imaging findings can be found on the [facility] Intranet Sharepoint site at: [email or web address]/document [email or web address]/[email or web address] %20Incidental%20Findi ngs%20at%20Imaging/Forms/Al lItems.aspx Account Services Specialist: MEGHANN Transcribe Date/Time: Oct 31 2022 10:04A Dictated by : FÁTIMA JAMES MD This examination was interpreted and the report reviewed and electronically signed by: FÁTIMA JAMES MD on Oct 31 2022 10:09AM EST [id number] ACTIONABLE Invalid Interpretation Code [facility] XR Chest PA and LateralOrder ed By: [facility] Provider on 10-31-2022 Interpretation and review of laboratory results Abnormal [facility] Radiology Result ACTIONABLE Abnormal [facility] Comment on above: This report contains an incidental or actionable finding. This finding may be a new finding separate from the reason your provider ordered the imaging test or it may be an already known finding that needs additional or continued follow-up. Because of this incidental or actionable finding, you may need another test (imaging or a different type of test). Please contact your provider for the next steps. [facility] XR Chest PA and Lateralon IMPRESSION: Apparent volume loss in the right hemithorax with hazy airspace opacity posteriorly suggesting right lower lobe atelectatic changes. There is also hazy opacity in the right upper lung zone with rightward tracheal deviation. Further evaluation with contrast-enhanced CT chest to exclude lesion in the right lower lobe/bronchus may be made. ACTIONABLE RESULT: FOLLOW-UP Acuity: Actionable Findings: Thoracic-Other Routing Code: CT_1 Recommendation: CT Chest W IVCON Time Frame: as soon as possible, when the patient's clinical state allows. COMMUNICATION: Results will be communicated with the ordering provider via [employer] staff message or phone message by [facility] within 2 business days of report finalization. ========= Algorithms for management of incidental imaging findings can be found on the [facility] Intran[employer] Sharepoint site at: http://[email or web address]/document ation/mychartlinks/Managing %20Incidental%20Findi ngs%20at%20Imaging/Forms/Al lItems.aspx Account Services Specialist: MEGHANN Transcribe Date/Time: Oct 31 2022 10:04A Dictated by : FÁTIMA JAMES MD This examination was interpreted and the report reviewed and electronically signed by: FÁTIMA JAMES MD on Oct 31 2022 10:09AM [facility] DIVISION OF RADIOLOGY * * *Final Report* * * DATE OF EXAM: Oct 31 2022 9:37AM WOX 5291 - XR CHEST 2V FRONTAL/LAT / PROCEDURE REASON: SOB (shortness of breath) * * * * Physician Interpretation * * * * EXAMINATION: CHEST RADIOGRAPH (2 VIEW FRONTAL & LATERAL) CLINICAL HISTORY: SOB (shortness of breath) MQ: XC2_6 EXAM DATE/TIME: 10/31/2022 9:37 AM COMPARISON: No relevant prior studies available. RESULT: Lines, tubes, and devices: None. Lungs and pleura: Biapical pleural-parenchymal scarring. There is apparent volume loss in the right hemithorax with hazy airspace opacity posteriorly suggesting right lower lobe atelectatic changes. There is also hazy opacity in the right upper lung zone with rightward tracheal deviation. Cardiomediastinal silhouette: Heart normal in size. Aorta mildly tortuous. Bones and soft tissues: Degenerative changes are present within the thoracic spine. DIVISION OF RADIOLOGY Provider, [facility] - 10/31/2022 * * *Final Report* * * DATE OF EXAM: Oct 31 2022 9:37AM WOX 5291 - XR CHEST 2V FRONTAL/LAT / PROCEDURE REASON: SOB (shortness of breath) * * * * Physician Interpretation * * * * EXAMINATION: CHEST RADIOGRAPH (2 VIEW FRONTAL & LATERAL) CLINICAL HISTORY: SOB (shortness of breath) MQ: XC2_6 EXAM DATE/TIME: 10/31/2022 9:37 AM COMPARISON: No relevant prior studies available. RESULT: Lines, tubes, and devices: None. Lungs and pleura: Biapical pleural-parenchymal scarring. There is apparent volume loss in the right hemithorax with hazy airspace opacity posteriorly suggesting right lower lobe atelectatic changes. There is also hazy opacity in the right upper lung zone with rightward tracheal deviation. Cardiomediastinal silhouette: Heart normal in size. Aorta mildly tortuous. Bones and soft tissues: Degenerative changes are present within the thoracic spine. IMPRESSION IMPRESSION: Apparent volume loss in the right hemithorax with hazy airspace opacity posteriorly suggesting right lower lobe atelectatic changes. There is also hazy opacity in the right upper lung zone with rightward tracheal deviation. Further evaluation with contrast-enhanced CT chest to exclude lesion in the right lower lobe/bronchus may be made. ACTIONABLE RESULT: FOLLOW-UP Acuity: Actionable Findings: Thoracic-Other Routing Code: CT_1 Recommendation: CT Chest W IVCON Time Frame: as soon as possible, when the patient's clinical state allows. COMMUNICATION: Results will be communicated with the ordering provider via [employer] staff message or phone message by [facility] within 2 business days of report finalization. ========= Algorithms for management of incidental imaging findings can be found on the [facility] Intranet Sharepoint site at: http://spo.[email or web address]/document ation/mychartlinks/Managing %20Incidental%20Findi ngs%20at%20Imaging/Forms/Al lItems.aspx Account Services Specialist: MEGHANN Transcribe Date/Time: Oct 31 2022 10:04A Dictated by : FÁTIMA JAMES MD This examination was interpreted and the report reviewed and electronically signed by: FÁTIMA JAMES MD on Oct 31 2022 10:09AM EST [facility] Radiology Study observation (narrative) [facility] CNOVon 10-30-2022 CNOV Office Visit ([facility] ) AMOL MCKEON ([id number]) 1950 F DEF Date Time Provider Department 10/30/22 11:45 AM [facility] During your visit today, we recorded the following information about you: Temperature Pulse Respiration Blood pressure 97.6 degrees 80/minute 21/minute 150/110 Weight 67.4 kg Yolette Larsen APRN.CNP 10/30/2022 12:18 PM Signed This note was created using Redeemiater. Subjective Amol Mckeon is a 72 year old female. HPI by patient: Amol Mckeon is a 72 year old presenting to the office with the complaint of viral symptoms. Started approximately 1 month ago with a cough. Bronchial cough. Associated symptoms include diarrhea but then states this is intermittent for awhile, states it depends on what she eats. Vomited on Sunday then moved in to diarrhea. Now is softer stool, not runny. Has shortness of breath. Temp was 101.7F on Sunday, body aches- states from lack of rest, and fatigue. States some congestion with the mask but not at home. States her blood pressure is normal for her- goes according to the graves- her thyroid? Covid Immunization Dates Overdue - COVID-19 VACCINE (3 - Booster for Pfizer series) Overdue since 07/16/2021 05/21/2021 Imm Admin: COVID-19 original vaccine, age 12+ yr, monovalent (PFIZER-BIONTECH - PURPLE TOP) 04/30/2021 Imm Admin: COVID-19 original vaccine, age 12+ yr, monovalent (PFIZER-BIONTECH - PURPLE TOP) Took 1 home test, I know this isn't covid. Sick contacts: none. Smoking history/second hand smoke: [...] and also states I know this isn't flu. Patient is upset she is only getting a note for today. Advised that out of [facility] I typically can give the day seen off or longer if indicated. There is no sore throat, not swabbing for s (more content not included)... Normal [facility] Culture, urineOrdered By: Dr Nereyda Roberson on 07-29-2022 Bacteria identified Cx Nom (U) Positive [facility] Laboratory - Chemistry and C hemistry - challengeOrdered By: Dr. Roberson on 07-27-2022 Free T4 [Mass/Vol] 1.09 ng/dL 0.76-1.46 [facility] No Panel InformationOrdered By: Dr. Roberson on 07-27-2022 Thyroid Stimulating Hormone (TSH) 18.70 uIU/mL 0.358-3.74 [facility] CNOVon 07-05-20[facility] AMOL MCKEON ([id number]) 1950 F DEF Date Time Provider Department 07/05/22 2:45 PM ONEIL BRAY [facility] During your visit today, we recorded the following information about you: Temperature Pulse Respiration Blood pressure 96.9 degrees 82/minute 16/minute 128/72 Weight 65.8 kg Oneil Bray MD 07/05/2022 3:06 PM Signed Patient presents with: Diarrhea: chills x 5 [...] work note for today and tomorrow. Oneil Bray MD Allergies As of Date: 07/05/2022 Noted Allergy Reaction CHEESE (SEE VEGETABLE GUM) 12/26/2004 CHOCOLATE 12/26/2004 PENICILLINS 12/26/2004 7 - Swelling Comments: SWELLING AT INJECTION SITE Date Reviewed: 07/05/2022 Reviewed by: Aliya Ellison - Fully Assessed Reason for Visit: Diarrhea [35] Cmt: chills x 5 days Primary Visit Diagnosis:Diarrhea of presumed infectious origin [R19.7] Prescriptions as of 07/05/2022 - levothyroxine (SYNTHROID) 100 mcg tablet - levothyroxine (SYNTHROID) 50 mcg tablet - clonazePAM (KLONOPIN) 1 mg tablet - aspirin, enteric coated (ASPIRIN, ENTERIC COATED) 81 mg EC tablet Take 81 mg by mouth once daily. Problem List As Of Date: 07/05/2022 (None) Letter Text Encounter Status:Closed by ONEIL BRAY on 07/05/22 Normal [facility] Culture, urineOrdered By: Dr Nereyda Roberson on 05-05-2022 Bacteria identified Cx Nom (U) Mixed Gram Pos & Gram Neg Org [facility] Bilirubin Test strip Ql (U)O rdered By: Dr. Roberson on 05-03-2022 Bilirubin Ql (U) Negative Negative [facility] Ketones Test strip Ql (U)Ord ered By: Dr. Roberson on 05-03-2022 Ketones Ql (U) Negative Negative [facility] Laboratory - Chemistry and C hemistry - challengeOrdered By: Dr. Roberson on 05-03-2022 ALP [Catalytic activity/Vol] 72 U/L 45-117 [facility] Free T4 [Mass/Vol] 1.12 ng/dL 0.76-1.46 [facility] Nitrite Test strip Ql (U)Ord ered By: Dr. Roberson on 05-03-2022 Nitrite Ql (U) Positive Negative [facility] No Panel InformationOrdered By: Dr. Roberson on 05-03-2022 Thyroid Stimulating Hormone (TSH) 22.90 uIU/mL 0.358-3.74 [facility] Protein Test strip Ql (U)Ord ered By: Dr. Roberson on 05-03-2022 Protein Ql (U) 15 mg/dl Negative [facility] Thin prep Papanicolaou smear with manual screeningOrdered By: Dr. Roberson on 05-03-2022 Thin prep Papanicolaou smear with manual screening 195 U/L 84-246 [facility] Urine blood detectionOrdered By: Dr. Roberson on 05-03-2022 RBC Ql (U) 25 /ul Negative [facility] Urine clarityOrdered By: Dr. Roberson on 05-03-2022 Clarity (U) Clear Clear [facility] Urine color determinationOrd ered By: Dr. Roberson on 05-03-2022 Color (U) Yellow Yellow [facility] Urine glucose detectionOrder ed By: Dr. Roberson on 05-03-2022 Glucose Ql (U) Normal mg/dl Normal [facility] Urine leukocyte esterase det ection by dipstickOrdered By: Dr. Roberson on 05-03-2022 Leukocyte esterase Test strip Ql (U) 500 /ul Negative [facility] Urine pHOrdered By: Dr. Yusra damon on 05-03-2022 pH (U) 7.0 [pH] 5.0 - 8.0 [facility] Urine specific gravity measu rementOrdered By: Dr. Roberson on 05-03-2022 Specific gravity (U) [Rel density] 1.010 1.002-1.03 0 [facility] Urobilinogen Auto test strip Ql (U)Ordered By: Dr. Roberson on 05-03-2022 Urobilinogen Ql (U) Normal mg/dl Normal [facility] Laboratory - Microbiology an d Antimicrobial susceptibilityOrdered By: Dr. Velasco on 04-07-2022 Bacteria identified Cx Nom (Bld) No growth in 5 days. [facility] Bacteria identified Cx Nom (Bld) Negative [facility] Absolute lymphocyte countOrd ered By: Dr. Lamb on 04-04-2022 Lymphocytes Auto (Unsp spec) [#/Vol] 1.58 10*3/uL 0.83-4.51 [facility] Basophil percentageOrdered B y: Dr. Lamb on 04-04-2022 Basophils/100 WBC (Bld) 0.5 % 0-1 [facility] Chloride [Moles/Vol] 102 mmol/L 98-107 [facility] Eosinophils/100 WBC (Bld) 0.8 % 0-5 [facility] Glucose [Mass/Vol] 142 mg/dL 74-106 [facility] Comment on above: Fasting Glucose resu lt greater than or equal to 126 mg/dL suggests DIABETES MELLITUS per A.D.A. criteria. Neutrophils (Bld) [#/Vol] 9.7 10*3/uL 2.0-7.7 [facility] Neutrophils/100 WBC (Bld) 75.5 % 47-70 [facility] Potassium [Moles/Vol] 3.5 mmol/L 3.5-5.1 [facility] Sodium [Moles/Vol] 136 mmol/L 136-145 [facility] WBC (Bld) [#/Vol] 12.9 10*3/uL 4.4-11.0 [facility] Blood erythrocytes count (nu mber/volume)Ordered By: Dr. Lamb on 04-04-2022 RBC (Bld) [#/Vol] 4.39 10*6/uL 4.2-5.4 [facility] Blood hemoglobin measurement (mass/volume)Ordered By: Dr. Lamb on 04-04-2022 Hemoglobin (Bld) [Mass/Vol] 13.8 g/dL 12.0-15.0 [facility] Blood lymphocytes/100 leukoc ytesOrdered By: Dr. Lamb on 04-04-2022 Lymphocytes/100 WBC (Bld) 12.3 % 19-41 [facility] Blood monocytes/100 leukocyt esOrdered By: Dr. Lamb on 04-04-2022 Monocytes/100 WBC (Bld) 10.0 % 0-10 [facility] Blood platelet mean volumeOr dered By: Dr. Lamb on 04-04-2022 Platelet mean volume (Bld) [Entitic vol] 10.0 fL 6.2-12.0 [facility] Culture, urineOrdered By: Dr Nereyda Lamb on 04-04-2022 Bacteria identified Cx Nom (U) Escherichia coli [facility] Determination of erythrocyte mean corpuscular volume (MCV)Ordered By: Dr. Lamb on 04-04-2022 MCV (RBC) [Entitic vol] 88.4 fL 81-99 [facility] Hematocrit Auto (Bld) [Volum e fraction]Ordered By: Dr. Lamb on 04-04-2022 Hematocrit (Bld) [Volume fraction] 38.8 % 37-47 [facility] Laboratory - Chemistry and C hemistry - challengeOrdered By: Dr. Lamb on 04-04-2022 CO2 [Moles/Vol] 27.0 mmol/L 21.0-32.0 [facility] Urea nitrogen/Creatinine [Mass ratio] 13.7 mg/mg 10-20 [facility] Laboratory - Hematology and Cell countsOrdered By: Dr. Lamb on 04-04-2022 Erythrocyte distribution width (RBC) [Entitic vol] 41.7 fL 35.1-43.9 [facility] Erythrocyte distribution width (RBC) [Ratio] 12.7 % 11.6-14.6 [facility] Immature granulocytes/100 WBC (Bld) 0.900 % 0.0-0.9 [facility] Comment on above: IG% - Immature Granu locytes (promyelocytes, myelocytes and metamyelocytes) > 1% indicates that a LEFT SHIFT is Present. MCH (RBC) [Entitic mass] 31.4 pg 27.0-32.0 [facility] Nucleated RBC/100 WBC (Bld) [Ratio] 0 % 0-5 [facility] MCHC Auto (RBC) [Mass/Vol]Or dered By: Dr. Lamb on 04-04-2022 MCHC (RBC) [Mass/Vol] 35.6 g/dL 32-36 [facility] No Panel InformationOrdered By: Dr. Lamb on 04-04-2022 Estimated Creatinine Clearance Calc 47.10 ml/min [facility] Estimated GFR (MDRD) Amer 101 mL/min >60 [facility] Comment on above: GFR Calc Estimated GFR (MDRD) Non-Af Amer 84 mL/min >60 [facility] Comment on above: Non- GFR Calc Platelets bldOrdered By: Dr. Lamb on 04-04-2022 Platelets (Bld) [#/Vol] 276 10*3/uL 150-450 [facility] Serum or plasma calcium eun urement (mass/volume)Ordered By: Dr. Lamb on 04-04-2022 Calcium [Mass/Vol] 9.3 mg/dL 8.5-10.1 [facility] Serum or plasma creatinine m easurement (mass/volume)Ordered By: Dr. Lamb on 04-04-2022 Creatinine [Mass/Vol] 0.73 mg/dL 0.55-1.02 [facility] Comment on above: The validity of the calculated GFR & GFRAA in patients over 70 years has not been determined. Clinical correlation is essential. Serum or plasma urea nitroge n measurement (mass/volume)Ordered By: Dr. Lamb on 04-04-2022 Urea nitrogen [Mass/Vol] 10 mg/dL 7-18 [facility] Thin prep Papanicolaou smear with manual screeningOrdered By: Dr. Lamb on 04-04-2022 Thin prep Papanicolaou smear with manual screening 7 5-15 [facility] Aldolase ser/plasOrdered By: Dr. Lamb on 04-03-2022 Aldolase [Catalytic activity/Vol] 4.9 mU/mL 3.3-10.3 [facility] Laboratory - Chemistry and C hemistry - challengeOrdered By: Dr. Lamb on 04-03-2022 CK [Catalytic activity/Vol] 161 U/L 26-192 [facility] Myoglobin [Mass/Vol] 53 ng/mL 25-58 [facility] Comment on above: Performed at: [address] Director: Kana Doss PhD, Phone: [phone] No Panel InformationOrdered By: Dr. Lamb on 04-03-2022 Thyroid Stimulating Hormone (TSH) 9.16 uIU/mL 0.358-3.74 [facility] Absolute lymphocyte counton 04-02-2022 Lymphocytes Auto (Unsp spec) [#/Vol] 1.31 10*3/uL 0.83-4.51 [facility] Work Phone: Basophil percentageOrdered B y: Dr. Velasco on 04-02-2022 Lactate [Moles/Vol] 1.3 mmol/L 0.4-2.0 [facility] Basophil percentage 10-25 SEEN /hpf 0-5 [facility] Bilirubin [Mass/Vol] 2.40 mg/dL 0.20-1.00 [facility] Comment on above: For patients on eltr ombopag therapy, use of Dimension [place] TBIL is not recommended. Protein [Mass/Vol] 7.9 g/dL 6.4-8.2 [facility] Basophil percentageOrdered B y: Dr. Lamb on 04-02-2022 Basophil percentage 3.2 mg/dL 2.5-4.9 [facility] Basophil percentageon 2021 Basophils/100 WBC (Bld) 0.8 % 0-1 [facility] Work Phone: Chloride [Moles/Vol] 97 mmol/L 98-107 [facility] Work Phone: [phone] Eosinophils/100 WBC (Bld) 0.9 % 0-5 [facility] Work Phone: Glucose [Mass/Vol] 106 mg/dL 74-106 [facility] Work Phone: Comment on above: Fasting Glucose resu lt from 100 to 125 mg/dL suggests IMPAIRED HOMEOSTASIS per A.D.A. criteria. Lactate [Moles/Vol] 2.1 mmol/L 0.4-2.0 [facility] Work Phone: Comment on above: Critical Result(s) C alled at: 10:39:31 04/02/2022 by: Marvin Bustamante RN (ER). Results read back by same. Neutrophils (Bld) [#/Vol] 11.8 10*3/uL 2.0-7.7 [facility] Work Phone: [phone] Neutrophils/100 WBC (Bld) 78.2 % 47-70 [facility] Work Phone: Potassium [Moles/Vol] 3.3 mmol/L 3.5-5.1 [facility] Work Phone: [phone] Sodium [Moles/Vol] 134 mmol/L 136-145 [facility] Work Phone: [phone] WBC (Bld) [#/Vol] 15.1 10*3/uL 4.4-11.0 [facility] Work Phone: Bilirubin Test strip Ql (U)O rdered By: Dr. Velasco on 04-02-2022 Bilirubin Ql (U) Negative Negative [facility] Blood erythrocytes count (nu mber/volume)on 04-02-2022 RBC (Bld) [#/Vol] 4.95 10*6/uL 4.2-5.4 [facility] Work Phone: [phone] Blood hemoglobin measurement (mass/volume)on 04-02-2022 Hemoglobin (Bld) [Mass/Vol] 15.2 g/dL 12.0-15.0 [facility] Work Phone: Blood lymphocytes/100 leukoc yteson 04-02-2022 Lymphocytes/100 WBC (Bld) 8.7 % 19-41 [facility] Work Phone: Blood monocytes/100 leukocyt eson 04-02-2022 Monocytes/100 WBC (Bld) 10.8 % 0-10 [facility] Work Phone: Blood platelet mean volumeon 04-02-2022 Platelet mean volume (Bld) [Entitic vol] 10.4 fL 6.2-12.0 [facility] Work Phone: [phone] Determination of erythrocyte mean corpuscular volume (MCV)on 04-02-2022 MCV (RBC) [Entitic vol] 90.5 fL 81-99 [facility] Work Phone: Hematocrit Auto (Bld) [Volum e fraction]on 04-02-2022 Hematocrit (Bld) [Volume fraction] 44.8 % 37-47 [facility] Work Phone: [phone] INR in Blood by Coagulation assayOrdered By: Dr. Lamb on 04-02-2022 INR Coag (Bld) [Relative time] 1.5 {INR} [facility] Influenza virus A and B and SARS-CoV-2 (COVID-19) Ag panel - Upper respiratory specimOrdered By: Dr. Velasco on 04-02-2022 SARS-CoV-2 (COVID-19) RNA ROMULO+probe Ql (Resp) [facility] Ketones Test strip Ql (U)Ord ered By: Dr. Velasco on 04-02-2022 Ketones Ql (U) 5 mg/dl Negative [facility] Laboratory - Chemistry and C hemistry - challengeOrdered By: Dr. Velasco on 04-02-2022 ALP [Catalytic activity/Vol] 81 U/L 45-117 [facility] ALT [Catalytic activity/Vol] 15 U/L 13-56 [facility] Free T4 [Mass/Vol] 1.15 ng/dL 0.76-1.46 [facility] Globulin (S) [Mass/Vol] 4.7 g/dL 2.2-4.2 [facility] Lipase [Catalytic activity/Vol] 34 U/L 73-393 [facility] Laboratory - Chemistry and C hemistry - challengeon 04-02-2022 CK [Catalytic activity/Vol] 245 U/L 26-192 [facility] Work Phone: CO2 [Moles/Vol] 26.0 mmol/L 21.0-32.0 [facility] Work Phone: Urea nitrogen/Creatinine [Mass ratio] 17.6 mg/mg 10-20 [facility] Work Phone: [phone] Laboratory - Chemistry and C hemistry - challengeOrdered By: Dr. Lamb on 04-02-2022 Magnesium [Mass/Vol] 2.2 mg/dL 1.6-2.6 [facility] Laboratory - CoagulationOrde red By: Dr. Lamb on 04-02-2022 aPTT Coag (Bld) [Time] 40.6 s 24.1-36.2 [facility] PT Coag (PPP) [Time] 17.4 s 11.7-14.9 [facility] Laboratory - Hematology and Cell countson 04-02-2022 Erythrocyte distribution width (RBC) [Entitic vol] 42.1 fL 35.1-43.9 [facility] Work Phone: [phone] Erythrocyte distribution width (RBC) [Ratio] 12.6 % 11.6-14.6 [facility] Work Phone: [phone] Immature granulocytes/100 WBC (Bld) 0.600 % 0.0-0.9 [facility] Work Phone: [phone] Comment on above: IG% - Immature Granu locytes (promyelocytes, myelocytes and metamyelocytes) > 1% indicates that a LEFT SHIFT is Present. MCH (RBC) [Entitic mass] 30.7 pg 27.0-32.0 [facility] Work Phone: Nucleated RBC/100 WBC (Bld) [Ratio] 0 % 0-5 [facility] Work Phone: Laboratory - Microbiology an d Antimicrobial susceptibilityOrdered By: Dr. Lamb on 04-02-2022 SARS-CoV-2 (COVID-19) RNA ROMULO+probe Ql (Unsp spec) Not detected Not Detect [facility] Comment on above: Normal Reference Ran ge: Not DetectedMethod:(RT-PCR) real-time reverse transcriptase PCRLuminex TORI Instrument*The Food and Drug Administration (FDA) has issued an Emergency Use Authorization (EAU) for the [employer] App SARS-CoV-2 Assay for the rapid detection of the virus that causes COVID-19. This test has been validated, but the FDAs independent review of this validation is pending.*Negative results do not preclude infection and should not be used as the sole basis for treatment or patient management. Optimum specimen types and timing for peak viral levels during infections caused by SARS-CoV-2 have not been determined. Collection of multiple specimens from the same patient may be necessary to detect the virus. The possibility of a false negative result should be considered if the patient has clinical presentation or has had recent exposure. MCHC Auto (RBC) [Mass/Vol]on 04-02-2022 MCHC (RBC) [Mass/Vol] 33.9 g/dL 32-36 [facility] Work Phone: Mucus LM Ql (Urine sed)Order ed By: Dr. Velasco on 04-02-2022 Mucus Ql (Urine sed) 0 SEEN /hpf [facility] Nitrite Test strip Ql (U)Ord ered By: Dr. Velasco on 04-02-2022 Nitrite Ql (U) Negative Negative [facility] No Panel Informationon 04-02 Estimated Creatinine Clearance Calc 37.80 ml/min [facility] Work Phone: Estimated GFR (MDRD) Amer 58 mL/min >60 [facility] Work Phone: Comment on above: GFR Calc Estimated GFR (MDRD) Non-Af Amer 48 mL/min >60 [facility] Work Phone: Comment on above: Non- GFR Calc Thyroid Stimulating Hormone (TSH) 11.50 uIU/mL 0.358-3.74 [facility] Work Phone: No Panel InformationOrdered By: Dr. Velasco on 04-02-2022 Free Triiodothyronine (T3) pg/dL 0.7 pg/mL 2.18-3.98 [facility] Troponin I High Sensitivity 56 pg/mL 3.0-54.0 [facility] Comment on above: Please Note: New Priya t Units and Gender Specific Reference Ranges. For more information see Policy Stat Procedure [place] High Sensitivity Troponin (TNIH) and attachments. Platelets bldon 04-02-2022 Platelets (Bld) [#/Vol] 257 10*3/uL 150-450 [facility] Work Phone: Protein Test strip Ql (U)Ord ered By: Dr. Velasco on 04-02-2022 Protein Ql (U) 15 mg/dl Negative [facility] Review by pathologiston 03-06 Pathologist review Elliott (Unsp spec) [Interp] Michelle barboza [facility] Work Phone: Review by pathologistOrdered By: Dr. Velasco on 04-02-2022 Pathologist review Elliott (Unsp spec) [Interp] Reviewed [facility] Comment on above: Previous reported re sult: Michelle barboza Edited by: RGOOD on 04/03/22:1202Neutrophilic leukocytosis.Clinical correlation suggested.Joe Moore D.O. 04/03/22 AMENDED REPORT 04/03/22 1202 PATH REV previously reported as: Michelle barboza Serum or plasma albumin eun urement (mass/volume)Ordered By: Dr. Velasco on 04-02-2022 Albumin [Mass/Vol] 3.2 g/dL 3.2-5.0 [facility] Serum or plasma albumin/glob ulin mass ratioOrdered By: Dr. Velasco on 04-02-2022 Albumin/Globulin [Mass ratio] 0.7 {ratio} 0.9-2.4 [facility] Serum or plasma calcium eun urement (mass/volume)on 04-02-2022 Calcium [Mass/Vol] 9.2 mg/dL 8.5-10.1 [facility] Work Phone: Serum or plasma creatinine m easurement (mass/volume)on 04-02-2022 Creatinine [Mass/Vol] 1.19 mg/dL 0.55-1.02 [facility] Work Phone: Comment on above: The validity of the calculated GFR & GFRAA in patients over 70 years has not been determined. Clinical correlation is essential. Serum or plasma urea nitroge n measurement (mass/volume)on 04-02-2022 Urea nitrogen [Mass/Vol] 21 mg/dL 7-18 [facility] Work Phone: Squamous epithelial cells de tection in urine sediment by light microscopyOrdered By: Dr. Velasco on 04-02-2022 Epithelial cells.squamous LM Ql (Urine sed) 0-5 SEEN /hpf 5-10 [facility] Thin prep Papanicolaou smear with manual screeningOrdered By: Dr. Velasco on 04-02-2022 Thin prep Papanicolaou smear with manual screening 28 U/L 15-37 [facility] Thin prep Papanicolaou smear with manual screeningon 04-02-2022 Thin prep Papanicolaou smear with manual screening 11 5-15 [facility] Work Phone: Urine blood detectionOrdered By: Dr. Velasco on 04-02-2022 RBC Ql (U) 250 /ul Negative [facility] RBC Ql (U) 0 SEEN /hpf 0-5 [facility] Urine clarityOrdered By: Dr. Velasco on 04-02-2022 Clarity (U) Sl. Cloudy Clear [facility] Urine color determinationOrd ered By: Dr. Velasco on 04-02-2022 Color (U) Yellow Yellow [facility] Urine glucose detectionOrder ed By: Dr. Velasco on 04-02-2022 Glucose Ql (U) Normal mg/dl Normal [facility] Urine leukocyte esterase det ection by dipstickOrdered By: Dr. Velasco on 04-02-2022 Leukocyte esterase Test strip Ql (U) 500 /ul Negative [facility] Urine pHOrdered By: Dr. Bc kerns on 04-02-2022 pH (U) 5.0 [pH] 5.0 - 8.0 [facility] Urine sediment bacteria coun t by microscopy (number/high power field)Ordered By: Dr. Velasco on 04-02-2022 Bacteria LM.HPF (Urine sed) [#/Area] 3 /[HPF] None Seen [facility] Urine specific gravity measu rementOrdered By: Dr. Velasco on 04-02-2022 Specific gravity (U) [Rel density] 1.015 1.002-1.03 0 [facility] Urobilinogen Auto test strip Ql (U)Ordered By: Dr. Velasco on 04-02-2022 Urobilinogen Ql (U) Normal mg/dl Normal [facility] Culture, urine Bacteria identified Cx Nom (U) Escherichia coli [facility] Work Phone: No Panel Information SARS-CoV-2 & FLU Antigen (Rapid) [facility] Work Phone: Vital Signs Date Time Vital Sign Value Performing Clinician Facility 11-04-2024 14:05-0400 Body height 165.[address] Leidy Beyer DO Work Phone: [facility] 11-04-2024 14:05-0400 Body mass index (BMI) [Ratio] 21.6 kg/m2 Dr. Leidy Beyer DO Work Phone: [facility] 11-04-2024 14:05-0400 Body temperature 97.4 [degF] Dr. Leidy Beyer DO Work Phone: [facility] 11-04-2024 14:05-0400 Body weight 58.[address] Leidy Beyer DO Work Phone: [facility] 11-04-2024 14:05-0400 Diastolic blood pressure 126 mm[Hg] Dr. Leidy Beyer DO Work Phone: [facility] 11-04-2024 14:05-0400 Heart rate 89 /min Dr. Leidy Beyer DO Work Phone: [facility] 11-04-2024 14:05-0400 Respiratory rate 22 /min Dr. Leidy Beyer DO Work Phone: [facility] 11-04-2024 14:05-0400 SaO2% (BldA) [Mass fraction] 98 % Dr. Leidy Beyer DO Work Phone: [facility] 11-04-2024 14:05-0400 Systolic blood pressure 176 mm[Hg] Dr. Leidy Beyer DO Work Phone: [facility] 11-04-2024 08:04-0400 Body height 165.[address] Leidy Beyer DO Work Phone: [facility] 11-04-2024 08:04-0400 Body mass index (BMI) [Ratio] 21.6 kg/m2 Dr. Leidy Beyer DO Work Phone: [facility] 11-04-2024 08:04-0400 Body temperature 97.4 [degF] Dr. Leidy Beyer DO Work Phone: [facility] 11-04-2024 08:04-0400 Body weight 58.[address] Leidy Beyer DO Work Phone: [facility] 11-04-2024 08:04-0400 Diastolic blood pressure 126 mm[Hg] Dr. Leidy Beyer DO Work Phone: [facility] 11-04-2024 08:04-0400 Heart rate 89 /min Dr. Leidy Beyer DO Work Phone: [facility] 11-04-2024 08:04-0400 Respiratory rate 22 /min Dr. Leidy Beyer DO Work Phone: [facility] 11-04-2024 08:04-0400 SaO2% (BldA) [Mass fraction] 98 % Dr. Leidy Beyer DO Work Phone: [facility] 11-04-2024 08:04-0400 Systolic blood pressure 176 mm[Hg] Dr. Leidy Beyer DO Work Phone: [facility] 10-31-2024 07:49-0400 Body height 165.[address] Leidy Beyer DO Work Phone: [facility] 10-31-2024 07:49-0400 Body mass index (BMI) [Ratio] 21.6 kg/m2 Dr. Leidy Beyer DO Work Phone: [facility] 10-31-2024 07:49-0400 Body temperature 97.4 [degF] Dr. Leidy Beyer DO Work Phone: [facility] 10-31-2024 07:49-0400 Body weight 58.[address] Leidy Beyer DO Work Phone: [facility] 10-31-2024 07:49-0400 Diastolic blood pressure 111 mm[Hg] Dr. Leidy Beyer DO Work Phone: [facility] 10-31-2024 07:49-0400 Heart rate 92 /min Dr. Leidy Beyer DO Work Phone: [facility] 10-31-2024 07:49-0400 Respiratory rate 18 /min Dr. Leidy Beyer DO Work Phone: [facility] 10-31-2024 07:49-0400 SaO2% (BldA) [Mass fraction] 98 % Dr. Leidy Beyer DO Work Phone: [facility] 10-31-2024 07:49-0400 Systolic blood pressure 162 mm[Hg] Dr. Leidy Beyer DO Work Phone: [facility] 10-15-2024 09:05-0400 Diastolic blood pressure 106 mm[Hg] Dr. Leidy Beyer DO Work Phone: [facility] 10-15-2024 09:05-0400 Heart rate 102 /min Dr. Leidy Beyer DO Work Phone: [facility] 10-15-2024 09:05-0400 Respiratory rate 16 /min Dr. Leidy Beyer DO Work Phone: [facility] 10-15-2024 09:05-0400 Systolic blood pressure 161 mm[Hg] Dr. Leidy Beyer DO Work Phone: [facility] 10-15-2024 08:48-0400 Body temperature 97.1 [degF] Dr. Leidy Beyer DO Work Phone: [facility] 10-10-2024 08:39-0400 Body height 165.[address] Leidy Beyer DO Work Phone: [facility] 10-10-2024 08:39-0400 Body mass index (BMI) [Ratio] 21.4 kg/m2 Dr. Leidy Beyer DO Work Phone: [facility] 10-10-2024 08:39-0400 Body temperature 97.4 [degF] Dr. Leidy Beyer DO Work Phone: [facility] 10-10-2024 08:39-0400 Body weight 58.[address] Leidy Beyer DO Work Phone: [facility] 10-10-2024 08:39-0400 Diastolic blood pressure 104 mm[Hg] Dr. Leidy Beyer DO Work Phone: [facility] 10-10-2024 08:39-0400 Heart rate 96 /min Dr. Leidy Beyer DO Work Phone: [facility] 10-10-2024 08:39-0400 Respiratory rate 18 /min Dr. Leidy Beyer DO Work Phone: [facility] 10-10-2024 08:39-0400 SaO2% (BldA) [Mass fraction] 99 % Dr. Leidy Beyer DO Work Phone: [facility] 10-10-2024 08:39-0400 Systolic blood pressure 170 mm[Hg] Dr. Leidy Beyer DO Work Phone: [facility] 08-01-2023 13:34-0500 Body height 165.[address] Leidy Beyer Work Phone: [facility] 08-01-2023 13:34-0500 Body mass index (BMI) [Ratio] 19.6 kg/m2 Dr. Leidy Beyer Work Phone: [facility] 08-01-2023 13:34-0500 Body temperature 98.2 [degF] Dr. Leidy Beyer Work Phone: [facility] 08-01-2023 13:34-0500 Body weight 53.[address] Leidy Beyer Work Phone: [facility] 08-01-2023 13:34-0500 Diastolic blood pressure 105 mm[Hg] Dr. Leidy Beyer Work Phone: [facility] 08-01-2023 13:34-0500 Heart rate 111 /min Dr. Leidy Beyer Work Phone: [facility] 08-01-2023 13:34-0500 Respiratory rate 18 /min Dr. Leidy Beyer Work Phone: [facility] 08-01-2023 13:34-0500 SaO2% (BldA) [Mass fraction] 94 % Dr. Leidy Beyer Work Phone: [facility] 08-01-2023 13:34-0500 Systolic blood pressure 159 mm[Hg] Dr. Leidy Beyer Work Phone: [facility] 07-10-2023 13:50-0500 Body height 165.[address] Leidy Beyer Work Phone: [facility] 07-10-2023 13:50-0500 Body mass index (BMI) [Ratio] 19.8 kg/m2 Dr. Leidy Beyer Work Phone: [facility] 07-10-2023 13:50-0500 Body temperature 97.4 [degF] Dr. Leidy Beyer Work Phone: [facility] 07-10-2023 13:50-0500 Body weight 53.[address] Leidy Beyer Work Phone: [facility] 07-10-2023 13:50-0500 Diastolic blood pressure 107 mm[Hg] Dr. Leidy Beyer Work Phone: [facility] 07-10-2023 13:50-0500 Heart rate 111 /min Dr. Leidy Beyer Work Phone: [facility] 07-10-2023 13:50-0500 Respiratory rate 20 /min Dr. Leidy Beyer Work Phone: [facility] 07-10-2023 13:50-0500 SaO2% (BldA) [Mass fraction] 91 % Dr. Leidy Beyer Work Phone: [facility] 07-10-2023 13:50-0500 Systolic blood pressure 164 mm[Hg] Dr. Leidy Beyer Work Phone: [facility] 06-19-2023 08:05-0500 Body mass index (BMI) [Ratio] 19.6 kg/m2 Dr. Leidy Beyer Work Phone: [facility] 06-19-2023 08:05-0500 Body temperature 94 [degF] Dr. Leidy Beyer Work Phone: [facility] 06-19-2023 08:05-0500 Body weight 53.[address] Leidy Beyer Work Phone: [facility] 06-19-2023 08:05-0500 Diastolic blood pressure 94 mm[Hg] Dr. Leidy Beyer Work Phone: [facility] 06-19-2023 08:05-0500 Heart rate 120 /min Dr. Leidy Beyer Work Phone: [facility] 06-19-2023 08:05-0500 Respiratory rate 18 /min Dr. Leidy Beyer Work Phone: [facility] 06-19-2023 08:05-0500 SaO2% (BldA) [Mass fraction] 92 % Dr. Leidy Beyer Work Phone: [facility] 06-19-2023 08:05-0500 Systolic blood pressure 138 mm[Hg] Dr. Leidy Byeer Work Phone: [facility] 06-13-2023 15:20-0500 Body temperature 98 [degF] Dr. Leidy Beyer Work Phone: [facility] 06-13-2023 15:20-0500 Diastolic blood pressure 77 mm[Hg] Dr. Leidy Beyer Work Phone: [facility] 06-13-2023 15:20-0500 Heart rate 96 /min Dr. Leidy Beyer Work Phone: [facility] 06-13-2023 15:20-0500 Respiratory rate 18 /min Dr. Leidy Beyer Work Phone: [facility] 06-13-2023 15:20-0500 SaO2% (BldA) [Mass fraction] 89 % Dr. Leidy Beyer Work Phone: [facility] 06-13-2023 15:20-0500 Systolic blood pressure 124 mm[Hg] Dr. Leidy Beyer Work Phone: [facility] 06-13-2023 15:08-0500 Inhaled oxygen flow rate 4 L/min Dr. Leidy Beyer Work Phone: [facility] 06-13-2023 12:42-0500 Body height 165.[address] Leidy Beyer Work Phone: [facility] 06-13-2023 12:42-0500 Body mass index (BMI) [Ratio] 20.1 kg/m2 Dr. Leidy Beyer Work Phone: [facility] 06-13-2023 12:42-0500 Body weight [address] Leidy Beyer Work Phone: [facility] 06-12-2023 08:57-0500 Body mass index (BMI) [Ratio] 20.1 kg/m2 Dr. Leidy Beyer Work Phone: [facility] 06-12-2023 08:57-0500 Body temperature 97.4 [degF] Dr. Leidy Beyer Work Phone: [facility] 06-12-2023 08:57-0500 Body weight 54.[address] Leidy Beyer Work Phone: [facility] 06-12-2023 08:57-0500 Diastolic blood pressure 93 mm[Hg] Dr. Leidy Beyer Work Phone: [facility] 06-12-2023 08:57-0500 Heart rate 109 /min Dr. Leidy Beyer Work Phone: [facility] 06-12-2023 08:57-0500 Respiratory rate 18 /min Dr. Leidy Beyer Work Phone: [facility] 06-12-2023 08:57-0500 SaO2% (BldA) [Mass fraction] 88 % Dr. Leidy Beyer Work Phone: [facility] 06-12-2023 08:57-0500 Systolic blood pressure 136 mm[Hg] Dr. Leidy Beyer Work Phone: [facility] 05-23-2023 09:15-0500 Body mass index (BMI) [Ratio] 20.7 kg/m2 Dr. Leidy Beyer Work Phone: [facility] 05-23-2023 09:15-0500 Body weight 56.[address] Leidy Beyer Work Phone: [facility] 05-23-2023 09:15-0500 Diastolic blood pressure 83 mm[Hg] Dr. Leidy Beyer Work Phone: [facility] 05-23-2023 09:15-0500 Respiratory rate 16 /min Dr. Leidy Beyer Work Phone: [facility] 05-23-2023 09:15-0500 Systolic blood pressure 124 mm[Hg] Dr. Leidy Beyer Work Phone: [facility] 05-01-2023 15:04-0500 Body height 165.[address] Leidy Beyer Work Phone: [facility] 05-01-2023 15:04-0500 Body mass index (BMI) [Ratio] 21.3 kg/m2 Dr. Leidy Beyer Work Phone: [facility] 05-01-2023 15:04-0500 Body temperature 98 [degF] Dr. Leidy Beyer Work Phone: [facility] 05-01-2023 15:04-0500 Body weight 58.[address] Leidy Beyer Work Phone: [facility] 05-01-2023 15:04-0500 Diastolic blood pressure 93 mm[Hg] Dr. Leidy Beyer Work Phone: [facility] 05-01-2023 15:04-0500 Heart rate 117 /min Dr. Leidy Beyer Work Phone: [facility] 05-01-2023 15:04-0500 Respiratory rate 16 /min Dr. Leidy Beyer Work Phone: [facility] 05-01-2023 15:04-0500 SaO2% (BldA) [Mass fraction] 95 % Dr. Leidy Beyer Work Phone: [facility] 05-01-2023 15:04-0500 Systolic blood pressure 149 mm[Hg] Dr. Leidy Beyer Work Phone: [facility] 04-04-2023 15:39-0400 Body temperature 97.1 [degF] Dr. Leidy Beyer Work Phone: [facility] 04-04-2023 15:39-0400 Diastolic blood pressure 57 mm[Hg] Dr. Leidy Beyer Work Phone: [facility] 04-04-2023 15:39-0400 Heart rate 119 /min Dr. Leidy Beyer Work Phone: [facility] 04-04-2023 15:39-0400 Respiratory rate 16 /min Dr. Leidy Beyer Work Phone: [facility] 04-04-2023 15:39-0400 SaO2% (BldA) [Mass fraction] 93 % Dr. Leidy Beyer Work Phone: [facility] 04-04-2023 15:39-0400 Systolic blood pressure 140 mm[Hg] Dr. Leidy Beyer Work Phone: [facility] 04-03-2023 09:29-0400 Body mass index (BMI) [Ratio] 22.6 kg/m2 Dr. Leidy Beyer Work Phone: [facility] 04-03-2023 09:29-0400 Body temperature 98.1 [degF] Dr. Leidy eByer Work Phone: [facility] 04-03-2023 09:29-0400 Body weight 61.[address] Leidy Beyer Work Phone: [facility] 04-03-2023 09:29-0400 Diastolic blood pressure 85 mm[Hg] Dr. Leidy Beyer Work Phone: [facility] 04-03-2023 09:29-0400 Heart rate 112 /min Dr. Leidy Beyer Work Phone: [facility] 04-03-2023 09:29-0400 Respiratory rate 16 /min Dr. Leidy Beyer Work Phone: [facility] 04-03-2023 09:29-0400 SaO2% (BldA) [Mass fraction] 94 % Dr. Leidy Beyer Work Phone: [facility] 04-03-2023 09:29-0400 Systolic blood pressure 126 mm[Hg] Dr. Leidy Beyer Work Phone: [facility] 03-19-2023 06:51-0400 Body height 165.[address] Leidy Beyer Work Phone: [facility] 03-19-2023 06:51-0400 Body mass index (BMI) [Ratio] 23.1 kg/m2 Dr. Leidy Beyer Work Phone: [facility] 03-19-2023 06:51-0400 Body temperature 97.3 [degF] Dr. Leidy Beyer Work Phone: [facility] 03-19-2023 06:51-0400 Body weight 63.[address] Leidy Beyer Work Phone: [facility] 03-19-2023 06:51-0400 Diastolic blood pressure 79 mm[Hg] Dr. Leidy Beyer Work Phone: [facility] 03-19-2023 06:51-0400 Heart rate 108 /min Dr. Leidy Beyer Work Phone: [facility] 03-19-2023 06:51-0400 Respiratory rate 18 /min Dr. Leidy Beyer Work Phone: [facility] 03-19-2023 06:51-0400 SaO2% (BldA) [Mass fraction] 90 % Dr. Leidy Beyer Work Phone: [facility] 03-19-2023 06:51-0400 Systolic blood pressure 120 mm[Hg] Dr. Leidy Beyer Work Phone: [facility] 03-14-2023 14:50-0400 Body temperature 98 [degF] Dr. Leidy Beyer Work Phone: [facility] 03-14-2023 14:50-0400 Diastolic blood pressure 80 mm[Hg] Dr. Leidy Beyer Work Phone: [facility] 03-14-2023 14:50-0400 Heart rate 95 /min Dr. Leidy Beyer Work Phone: [facility] 03-14-2023 14:50-0400 Respiratory rate 16 /min Dr. Leidy Beyer Work Phone: [facility] 03-14-2023 14:50-0400 SaO2% (BldA) [Mass fraction] 100 % Dr. Leidy Beyer Work Phone: [facility] 03-14-2023 14:50-0400 Systolic blood pressure 110 mm[Hg] Dr. Leidy Beyer Work Phone: [facility] 03-13-2023 10:10-0400 Body weight 63.[address] Leidy Beyer Work Phone: [facility] 03-13-2023 09:36-0400 Body mass index (BMI) [Ratio] 23.1 kg/m2 Dr. Leidy Beyer Work Phone: [facility] 03-13-2023 09:36-0400 Body temperature 98.5 [degF] Dr. Leidy Beyer Work Phone: [facility] 03-13-2023 09:36-0400 Diastolic blood pressure 92 mm[Hg] Dr. Leidy Beyer Work Phone: [facility] 03-13-2023 09:36-0400 Heart rate 104 /min Dr. Leidy Beyer Work Phone: [facility] 03-13-2023 09:36-0400 Respiratory rate 16 /min Dr. Leidy Beyer Work Phone: [facility] 03-13-2023 09:36-0400 SaO2% (BldA) [Mass fraction] 95 % Dr. Leidy Beyer Work Phone: [facility] 03-13-2023 09:36-0400 Systolic blood pressure 145 mm[Hg] Dr. Leidy Beyer Work Phone: [facility] 02-12-2023 14:23-0400 Body mass index (BMI) [Ratio] 23.9 kg/m2 Dr. Leidy Beyer Work Phone: [facility] 02-12-2023 14:23-0400 Body temperature 98.6 [degF] Dr. Leidy Beyer Work Phone: [facility] 02-12-2023 14:23-0400 Body weight 65.[address] Leidy Beyer Work Phone: [facility] 02-12-2023 14:23-0400 Diastolic blood pressure 86 mm[Hg] Dr. Leidy Beyer Work Phone: [facility] 02-12-2023 14:23-0400 Heart rate 116 /min Dr. Leidy Beyer Work Phone: [facility] 02-12-2023 14:23-0400 Respiratory rate 16 /min Dr. Leidy Beyer Work Phone: [facility] 02-12-2023 14:23-0400 SaO2% (BldA) [Mass fraction] 91 % Dr. Leidy Beyer Work Phone: [facility] 02-12-2023 14:23-0400 Systolic blood pressure 124 mm[Hg] Dr. Leidy Beyer Work Phone: [facility] 02-07-2023 13:43-0400 Body mass index (BMI) [Ratio] 23.6 kg/m2 Dr. Leidy Beyer Work Phone: [facility] 02-07-2023 13:43-0400 Body temperature 97.2 [degF] Dr. Leidy Beyer Work Phone: [facility] 02-07-2023 13:43-0400 Body weight 64.[address] Leidy Beyer Work Phone: [facility] 02-07-2023 13:43-0400 Diastolic blood pressure 81 mm[Hg] Dr. Leidy Beyer Work Phone: [facility] 02-07-2023 13:43-0400 Heart rate 120 /min Dr. Leidy Beyer Work Phone: [facility] 02-07-2023 13:43-0400 Respiratory rate 16 /min Dr. Leidy Beyer Work Phone: [facility] 02-07-2023 13:43-0400 SaO2% (BldA) [Mass fraction] 92 % Dr. Leidy Beyer Work Phone: [facility] 02-07-2023 13:43-0400 Systolic blood pressure 119 mm[Hg] Dr. Leidy Beyer Work Phone: [facility] 02-06-2023 13:44-0400 Body mass index (BMI) [Ratio] 23.8 kg/m2 Dr. Leidy Beyer Work Phone: [facility] 02-06-2023 13:44-0400 Body temperature 97.1 [degF] Dr. Leidy Beyer Work Phone: [facility] 02-06-2023 13:44-0400 Body weight 64.[address] Leidy Beyer Work Phone: [facility] 02-06-2023 13:44-0400 Diastolic blood pressure 81 mm[Hg] Dr. Leidy Beyer Work Phone: [facility] 02-06-2023 13:44-0400 Heart rate 114 /min Dr. eLidy Beyer Work Phone: [facility] 02-06-2023 13:44-0400 Respiratory rate 18 /min Dr. Leidy Beyer Work Phone: [facility] 02-06-2023 13:44-0400 SaO2% (BldA) [Mass fraction] 93 % Dr. Leidy Beyer Work Phone: [facility] 09-05-2023 13:44-0400 Systolic blood pressure 116 mm[Hg] Dr. Leidy Beyer Work Phone: [facility] 01-31-2023 14:18-0400 Body mass index (BMI) [Ratio] 24 kg/m2 Dr. Leidy Beyer Work Phone: [facility] 01-31-2023 14:18-0400 Body temperature 97.6 [degF] Dr. Leidy Beyer Work Phone: [facility] 01-31-2023 14:18-0400 Body weight 65.[address] Leidy Beyer Work Phone: [facility] 01-31-2023 14:18-0400 Diastolic blood pressure 85 mm[Hg] Dr. Leidy Beyer Work Phone: [facility] 01-31-2023 14:18-0400 Heart rate 105 /min Dr. Leidy Beyer Work Phone: [facility] 01-31-2023 14:18-0400 Respiratory rate 18 /min Dr. Leidy Beyer Work Phone: [facility] 01-31-2023 14:18-0400 SaO2% (BldA) [Mass fraction] 91 % Dr. Leidy Beyer Work Phone: [facility] 01-31-2023 14:18-0400 Systolic blood pressure 128 mm[Hg] Dr. Leidy Beyer Work Phone: [facility] 01-30-2023 10:18-0400 Body mass index (BMI) [Ratio] 23.8 kg/m2 Dr. Leidy Beyer Work Phone: [facility] 01-30-2023 10:18-0400 Body temperature 98.7 [degF] Dr. Leidy Beyer Work Phone: [facility] 01-30-2023 10:18-0400 Body weight 65.[address] Leidy Beyer Work Phone: [facility] 01-30-2023 10:18-0400 Diastolic blood pressure 84 mm[Hg] Dr. Leidy Beyer Work Phone: [facility] 01-30-2023 10:18-0400 Heart rate 108 /min Dr. Leidy Beyer Work Phone: [facility] 01-30-2023 10:18-0400 Respiratory rate 18 /min Dr. Leidy Beyer Work Phone: [facility] 01-30-2023 10:18-0400 SaO2% (BldA) [Mass fraction] 94 % Dr. Leidy Beyer Work Phone: [facility] 01-30-2023 10:18-0400 Systolic blood pressure 133 mm[Hg] Dr. Leidy Beyer Work Phone: [facility] 01-24-2023 13:49-0400 Body mass index (BMI) [Ratio] 24.6 kg/m2 Dr. Leidy Beyer Work Phone: [facility] 01-24-2023 13:49-0400 Body temperature 97.5 [degF] Dr. Leidy Beyer Work Phone: [facility] 01-24-2023 13:49-0400 Body weight 67.[address] Leidy Beyer Work Phone: [facility] 01-24-2023 13:49-0400 Diastolic blood pressure 106 mm[Hg] Dr. Leidy Beyer Work Phone: [facility] 01-24-2023 13:49-0400 Heart rate 93 /min Dr. Leidy Beyer Work Phone: [facility] 01-24-2023 13:49-0400 Respiratory rate 16 /min Dr. Leidy Beyer Work Phone: [facility] 01-24-2023 13:49-0400 SaO2% (BldA) [Mass fraction] 93 % Dr. Leidy Beyer Work Phone: [facility] 01-24-2023 13:49-0400 Systolic blood pressure 164 mm[Hg] Dr. Leidy Beyer Work Phone: [facility] 01-23-2023 09:51-0400 Body mass index (BMI) [Ratio] 25 kg/m2 Dr. Leidy Beyer Work Phone: [facility] 01-23-2023 09:51-0400 Body temperature 98.6 [degF] Dr. Leidy Beyer Work Phone: [facility] 01-23-2023 09:51-0400 Body weight 68.[address] Leidy Beyer Work Phone: [facility] 01-23-2023 09:51-0400 Diastolic blood pressure 86 mm[Hg] Dr. Leidy Beyer Work Phone: [facility] 01-23-2023 09:51-0400 Heart rate 90 /min Dr. Leidy Beyer Work Phone: [facility] 01-23-2023 09:51-0400 Respiratory rate 18 /min Dr. Leidy Beyer Work Phone: [facility] 01-23-2023 09:51-0400 SaO2% (BldA) [Mass fraction] 94 % Dr. Leidy Beyer Work Phone: [facility] 01-23-2023 09:51-0400 Systolic blood pressure 132 mm[Hg] Dr. Leidy Beyer Work Phone: [facility] 01-17-2023 13:58-0400 Body mass index (BMI) [Ratio] 25 kg/m2 Dr. Leidy Beyer Work Phone: [facility] 01-17-2023 13:58-0400 Body temperature 97.1 [degF] Dr. Leidy Beyer Work Phone: [facility] 01-17-2023 13:58-0400 Body weight 68.[address] Leidy Beyer Work Phone: [facility] 01-17-2023 13:58-0400 Diastolic blood pressure 76 mm[Hg] Dr. Leidy Beyer Work Phone: [facility] 01-17-2023 13:58-0400 Heart rate 89 /min Dr. Leidy Beyer Work Phone: [facility] 01-17-2023 13:58-0400 Respiratory rate 18 /min Dr. Leidy Beyer Work Phone: [facility] 01-17-2023 13:58-0400 SaO2% (BldA) [Mass fraction] 93 % Dr. Leidy Beyer Work Phone: [facility] 01-17-2023 13:58-0400 Systolic blood pressure 115 mm[Hg] Dr. Leidy Beyer Work Phone: [facility] 01-16-2023 09:50-0400 Body temperature 98.4 [degF] Dr. Raffi Grace Work Phone: [facility] 01-16-2023 09:50-0400 Diastolic blood pressure 76 mm[Hg] Dr. Raffi Grace Work Phone: [facility] 01-16-2023 09:50-0400 Heart rate 103 /min Dr. Raffi Grace Work Phone: [facility] 01-16-2023 09:50-0400 Respiratory rate 16 /min Dr. Raffi Grace Work Phone: [facility] 01-16-2023 09:50-0400 SaO2% (BldA) [Mass fraction] 93 % Dr. Raffi Grace Work Phone: [facility] 01-16-2023 09:50-0400 Systolic blood pressure 102 mm[Hg] Dr. Raffi Grace Work Phone: [facility] 01-16-2023 04:40-0400 Body mass index (BMI) [Ratio] 25 kg/m2 Dr. Raffi Grace Work Phone: [facility] 01-16-2023 04:40-0400 Body weight 68.[address] Raffi Grace Work Phone: [facility] 01-15-2023 07:30-0400 Body height 165.[address] Raffi Grace Work Phone: [facility] 01-15-2023 06:41-0400 Body temperature 98.4 [degF] Dr. Raffi Grace Work Phone: [facility] 01-15-2023 06:41-0400 Diastolic blood pressure 77 mm[Hg] Dr. Raffi Grace Work Phone: [facility] 01-15-2023 06:41-0400 Heart rate 98 /min Dr. Raffi Grace Work Phone: [facility] 01-15-2023 06:41-0400 Respiratory rate 16 /min Dr. Raffi Grace Work Phone: [facility] 01-15-2023 06:41-0400 SaO2% (BldA) [Mass fraction] 94 % Dr. Raffi Grace Work Phone: [facility] 01-15-2023 06:41-0400 Systolic blood pressure 133 mm[Hg] Dr. Raffi Grace Work Phone: [facility] 01-15-2023 04:50-0400 Body height 165.[address] Raffi Grace Work Phone: [facility] 01-15-2023 04:50-0400 Body mass index (BMI) [Ratio] 25 kg/m2 Dr. Raffi Grace Work Phone: [facility] 01-15-2023 04:50-0400 Body weight 68.[address] Raffi Grace Work Phone: [facility] 01-09-2023 16:03-0400 Body temperature 97.6 [degF] Dr. Raffi Grace Work Phone: [facility] 01-09-2023 16:03-0400 Diastolic blood pressure 91 mm[Hg] Dr. Raffi Grace Work Phone: [facility] 01-09-2023 16:03-0400 Heart rate 79 /min Dr. Raffi Grace Work Phone: [facility] 01-09-2023 16:03-0400 Respiratory rate 16 /min Dr. Raffi Grace Work Phone: [facility] 01-09-2023 16:03-0400 Systolic blood pressure 159 mm[Hg] Dr. Raffi Grace Work Phone: [facility] 01-09-2023 15:27-0400 SaO2% (BldA) [Mass fraction] 93 % Dr. Raffi Grace Work Phone: [facility] 01-09-2023 15:13-0400 Body mass index (BMI) [Ratio] 24.7 kg/m2 Dr. Raffi Grace Work Phone: [facility] 01-09-2023 15:13-0400 Body temperature 97 [degF] Dr. Raffi Grace Work Phone: [facility] 01-09-2023 15:13-0400 Body weight 67.[address] Raffi Grace Work Phone: [facility] 01-09-2023 15:13-0400 Diastolic blood pressure 90 mm[Hg] Dr. Raffi Grace Work Phone: [facility] 01-09-2023 15:13-0400 Heart rate 79 /min Dr. Raffi Grace Work Phone: [facility] 01-09-2023 15:13-0400 Respiratory rate 16 /min Dr. Raffi Grace Work Phone: [facility] 01-09-2023 15:13-0400 SaO2% (BldA) [Mass fraction] 93 % Dr. Raffi Grace Work Phone: [facility] 01-09-2023 15:13-0400 Systolic blood pressure 160 mm[Hg] Dr. Raffi Grace Work Phone: [facility] 01-09-2023 11:26-0400 Body mass index (BMI) [Ratio] 24.7 kg/m2 Dr. Raffi Grace Work Phone: [facility] 01-09-2023 11:26-0400 Body temperature 98.2 [degF] Dr. Raffi Grace Work Phone: [facility] 01-09-2023 11:26-0400 Body weight 67.[address] Raffi Grace Work Phone: [facility] 01-09-2023 11:26-0400 Diastolic blood pressure 90 mm[Hg] Dr. Raffi Grace Work Phone: [facility] 01-09-2023 11:26-0400 Heart rate 74 /min Dr. Raffi Grace Work Phone: [facility] 01-09-2023 11:26-0400 Respiratory rate 16 /min Dr. Raffi Grace Work Phone: [facility] 01-09-2023 11:26-0400 SaO2% (BldA) [Mass fraction] 96 % Dr. Raffi Grace Work Phone: [facility] 01-09-2023 11:26-0400 Systolic blood pressure 160 mm[Hg] Dr. Raffi Grace Work Phone: [facility] 01-09-2023 09:20-0400 Body temperature 97.2 [degF] Dr. Raffi Grace Work Phone: [facility] 01-09-2023 09:20-0400 Diastolic blood pressure 69 mm[Hg] Dr. Raffi Grace Work Phone: [facility] 01-09-2023 09:20-0400 Heart rate 66 /min Dr. Raffi Grace Work Phone: [facility] 01-09-2023 09:20-0400 Respiratory rate 16 /min Dr. Raffi Grace Work Phone: [facility] 01-09-2023 09:20-0400 SaO2% (BldA) [Mass fraction] 91 % Dr. Raffi Grace Work Phone: [facility] 01-09-2023 09:20-0400 Systolic blood pressure 139 mm[Hg] Dr. Raffi Grace Work Phone: [facility] 01-09-2023 06:23-0400 Body height 165.[address] Raffi rGace Work Phone: 7(236)[phone] [place] [address] 01-09-2023 06:23-0400 Body mass index (BMI) [Ratio] 24.3 kg/m2 Dr. Raffi Grace Work Phone: 5(272)223-914932 [place] [address] 01-09-2023 06:23-0400 Body weight 66.[address] Raffi Grace Work Phone: 0(483)[phone] [place] [address] 01-03-2023 14:42-0400 Body mass index (BMI) [Ratio] 25.2 kg/m2 Dr. Raffi Grace Work Phone: [facility] 01-03-2023 14:42-0400 Body temperature 97.5 [degF] Dr. Raffi Grace Work Phone: 6(941)[phone] [place] [address] 01-03-2023 14:42-0400 Body weight 68.[address] Raffi Grace Work Phone: [facility] 01-03-2023 14:42-0400 Diastolic blood pressure 102 mm[Hg] Dr. Raffi Grace Work Phone: [facility] 01-03-2023 14:42-0400 Heart rate 69 /min Dr. Raffi Grace Work Phone: [facility] 01-03-2023 14:42-0400 Respiratory rate 16 /min Dr. Raffi Grace Work Phone: [facility] 01-03-2023 14:42-0400 SaO2% (BldA) [Mass fraction] 94 % Dr. Raffi Grace Work Phone: [facility] 01-03-2023 14:42-0400 Systolic blood pressure 181 mm[Hg] Dr. Raffi Grace Work Phone: [facility] 01-02-2023 10:59-0400 Diastolic blood pressure 88 mm[Hg] Dr. Raffi Grace Work Phone: [facility] 01-02-2023 10:59-0400 Heart rate 65 /min Dr. Raffi Grace Work Phone: [facility] 01-02-2023 10:59-0400 Respiratory rate 18 /min Dr. Raffi Grace Work Phone: [facility] 01-02-2023 10:59-0400 SaO2% (BldA) [Mass fraction] 93 % Dr. Raffi Grace Work Phone: [facility] 01-02-2023 10:59-0400 Systolic blood pressure 193 mm[Hg] Dr. Raffi Grace Work Phone: [facility] 01-02-2023 08:42-0400 Body mass index (BMI) [Ratio] 24.8 kg/m2 Dr. Raffi Grace Work Phone: [facility] 01-02-2023 08:42-0400 Body temperature 98.2 [degF] Dr. Raffi Grace Work Phone: [facility] 01-02-2023 08:42-0400 Body weight 67.[address] Raffi Grace Work Phone: [facility] 01-02-2023 08:42-0400 Diastolic blood pressure 99 mm[Hg] Dr. Raffi Grace Work Phone: [facility] 01-02-2023 08:42-0400 Heart rate 63 /min Dr. Raffi Grace Work Phone: 5(686)[phone] [place] [address] 01-02-2023 08:42-0400 Respiratory rate 18 /min Dr. Raffi Grace Work Phone: [facility] 01-02-2023 08:42-0400 SaO2% (BldA) [Mass fraction] 94 % Dr. Raffi Grace Work Phone: [facility] 01-02-2023 08:42-0400 Systolic blood pressure 174 mm[Hg] Dr. Raffi Grace Work Phone: [facility] 12-28-2022 07:51-0400 Body mass index (BMI) [Ratio] 25 kg/m2 Dr. Raffi Grace Work Phone: [facility] 12-28-2022 07:51-0400 Body temperature 97.7 [degF] Dr. Raffi Grace Work Phone: [facility] 12-28-2022 07:51-0400 Body weight 68.[address] Raffi Grace Work Phone: [facility] 12-28-2022 07:51-0400 Diastolic blood pressure 85 mm[Hg] Dr. Raffi Grace Work Phone: [facility] 12-28-2022 07:51-0400 Heart rate 69 /min Dr. Raffi Grace Work Phone: [facility] 12-28-2022 07:51-0400 Respiratory rate 16 /min Dr. Raffi Grace Work Phone: [facility] 12-28-2022 07:51-0400 SaO2% (BldA) [Mass fraction] 92 % Dr. Raffi Grace Work Phone: [facility] 12-28-2022 07:51-0400 Systolic blood pressure 156 mm[Hg] Dr. Raffi Grace Work Phone: [facility] 12-26-2022 08:51-0400 Body mass index (BMI) [Ratio] 24.8 kg/m2 Dr. Raffi Grace Work Phone: [facility] 12-26-2022 08:51-0400 Body temperature 96 [degF] Dr. Raffi Grace Work Phone: [facility] 12-26-2022 08:51-0400 Body weight 67.[address] Raffi Grace Work Phone: 3(906)[phone] [place] [address] 12-26-2022 08:51-0400 Diastolic blood pressure 92 mm[Hg] Dr. Raffi Grace Work Phone: [facility] 12-26-2022 08:51-0400 Heart rate 62 /min Dr. Raffi Grace Work Phone: [facility] 12-26-2022 08:51-0400 Respiratory rate 18 /min Dr. Raffi Grace Work Phone: [facility] 12-26-2022 08:51-0400 SaO2% (BldA) [Mass fraction] 91 % Dr. Raffi Grace Work Phone: [facility] 12-26-2022 08:51-0400 Systolic blood pressure 163 mm[Hg] Dr. Raffi Grace Work Phone: [facility] 12-19-2022 09:05-0400 Body mass index (BMI) [Ratio] 25 kg/m2 Dr. Raffi Grace Work Phone: [facility] 12-19-2022 09:05-0400 Body temperature 97.4 [degF] Dr. Raffi Grace Work Phone: [facility] 12-19-2022 09:05-0400 Body weight 68.[address] Raffi Grace Work Phone: [facility] 12-19-2022 09:05-0400 Diastolic blood pressure 94 mm[Hg] Dr. Raffi Grace Work Phone: [facility] 12-19-2022 09:05-0400 Heart rate 63 /min Dr. Raffi Grace Work Phone: [facility] 12-19-2022 09:05-0400 Respiratory rate 18 /min Dr. Raffi Grace Work Phone: [facility] 12-19-2022 09:05-0400 SaO2% (BldA) [Mass fraction] 93 % Dr. Raffi Grace Work Phone: [facility] 12-19-2022 09:05-0400 Systolic blood pressure 189 mm[Hg] Dr. Raffi Grace Work Phone: [facility] 12-14-2022 14:32-0400 Body mass index (BMI) [Ratio] 24.6 kg/m2 Dr. Raffi Grace Work Phone: [facility] 12-14-2022 14:32-0400 Body temperature 97.8 [degF] Dr. Raffi Grace Work Phone: 1(609)189-164032 [place] [address] 12-14-2022 14:32-0400 Body weight 67.[address] Raffi Grace Work Phone: 9(926)724-215509 [place] [address] 12-14-2022 14:32-0400 Diastolic blood pressure 102 mm[Hg] Dr. Raffi Grace Work Phone: 9(946)082-384309 [place] [address] 12-14-2022 14:32-0400 Heart rate 79 /min Dr. Raffi Grace Work Phone: 6(579)511-256209 [place] [address] 12-14-2022 14:32-0400 Respiratory rate 18 /min Dr. Raffi Grace Work Phone: 6(797)091-747969 [address] 12-14-2022 14:32-0400 SaO2% (BldA) [Mass fraction] 94 % Dr. Raffi Grace Work Phone: [facility] 12-14-2022 14:32-0400 Systolic blood pressure 151 mm[Hg] Dr. Raffi Grace Work Phone: 7(029)434-520369 [address] 11-16-2022 07:58-0400 SaO2% (BldA) [Mass fraction] 90 % Dr. Raffi Grace Work Phone: [facility] 11-16-2022 07:53-0400 Body height 165.[address] Raffi Grace Work Phone: 9(919)478-891909 [place] [address] 11-16-2022 07:11-0400 Body mass index (BMI) [Ratio] 25 kg/m2 Dr. Raffi Grace Work Phone: 0(194)682-606269 [address] 11-16-2022 07:11-0400 Body weight 68.[address] Raffi Grace Work Phone: [facility] 11-10-2022 13:14-0400 Body temperature 97.5 [degF] Dr. Raffi Grace Work Phone: [facility] 11-10-2022 13:14-0400 Diastolic blood pressure 70 mm[Hg] Dr. Raffi Grace Work Phone: 6(994)265-924132 [place] [address] 11-10-2022 13:14-0400 Heart rate 65 /min Dr. Raffi Grace Work Phone: 1(582)408-630332 [place] [address] 11-10-2022 13:14-0400 Respiratory rate 16 /min Dr. Raffi Grace Work Phone: 9(472)653-368369 [address] 11-10-2022 13:14-0400 SaO2% (BldA) [Mass fraction] 93 % Dr. Rafif Grace Work Phone: 8(131)176-545432 [place] [address] 11-10-2022 13:14-0400 Systolic blood pressure 126 mm[Hg] Dr. Raffi Grace Work Phone: 4(581)538-079832 [place] [address] 11-10-2022 11:26-0400 Body mass index (BMI) [Ratio] 24.5 kg/m2 Dr. aRffi Grace Work Phone: 1(512)519-643732 [place] [address] 11-10-2022 11:26-0400 Body weight 66.[address] Raffi Grace Work Phone: 4(347)409-797432 [place] [address] 11-07-2022 12:35-0400 Body temperature 98.1 [degF] Dr. Raffi Grace Work Phone: [facility] 11-07-2022 12:35-0400 Diastolic blood pressure 102 mm[Hg] Dr. Raffi Grace Work Phone: [facility] 11-07-2022 12:35-0400 Heart rate 91 /min Dr. Raffi Grace Work Phone: [facility] 11-07-2022 12:35-0400 Respiratory rate 18 /min Dr. Raffi Grace Work Phone: [facility] 11-07-2022 12:35-0400 SaO2% (BldA) [Mass fraction] 97 % Dr. Raffi Grace Work Phone: [facility] 11-07-2022 12:35-0400 Systolic blood pressure 159 mm[Hg] Dr. Raffi Grace Work Phone: [facility] 11-07-2022 10:53-0400 Body height 165.[address] Raffi Grace Work Phone: [facility] 11-07-2022 10:53-0400 Body weight 65.[address] Raffi Grace Work Phone: [facility] 11-07-2022 09:22-0400 Body mass index (BMI) [Ratio] 24.1 kg/m2 Dr. Raffi Grace Work Phone: [facility] 11-07-2022 02:02-0400 Inhaled oxygen flow rate 2 L/min Dr. Raffi Grace Work Phone: [facility] 11-06-2022 14:15-0400 Diastolic blood pressure 104 mm[Hg] [facility] 11-06-2022 14:15-0400 Heart rate 64 /min [facility] 11-06-2022 14:15-0400 Systolic blood pressure 159 mm[Hg] [facility] 11-06-2022 14:07-0400 Body temperature 97.8 [degF] [facility] 11-06-2022 14:07-0400 Respiratory rate 18 /min [facility] 11-06-2022 14:07-0400 SaO2% (BldA) [Mass fraction] 97 % [facility] 11-06-2022 12:56-0400 Body height 165.1 cm [facility] 11-06-2022 12:56-0400 Body mass index (BMI) [Ratio] 24.9 kg/m2 [facility] 11-06-2022 12:56-0400 Body weight 67.85 kg [facility] 10-30-2022 11:46-0400 Body temperature 97.59 [degF] [facility] Work Phone: [facility] 10-30-2022 11:46-0400 Body weight 67.41 kg [facility] Work Phone: [facility] 10-30-2022 11:46-0400 Diastolic blood pressure 110 mm[Hg] [facility] Work Phone: [facility] 10-30-2022 11:46-0400 Heart rate 80 /min [facility] Work Phone: [facility] 10-30-2022 11:46-0400 Respiratory rate 21 /min [facility] Work Phone: [facility] 10-30-2022 11:46-0400 SaO2% (BldA) [Mass fraction] 99 % [facility] Work Phone: [facility] 10-30-2022 11:46-0400 Systolic blood pressure 150 mm[Hg] [facility] Work Phone: [facility] 04-04-2022 11:27-0400 Body temperature 97.5 [degF] Dr. Leidy Beyer Work Phone: [facility] 04-04-2022 11:27-0400 Diastolic blood pressure 64 mm[Hg] Dr. Leidy Beyer Work Phone: [facility] 04-04-2022 11:27-0400 Heart rate 100 /min Dr. Leidy Beyer Work Phone: [facility] 04-04-2022 11:27-0400 Respiratory rate 18 /min Dr. Leidy Beyer Work Phone: [facility] 04-04-2022 11:27-0400 SaO2% (BldA) [Mass fraction] 92 % Dr. Leidy Beyer Work Phone: [facility] 04-04-2022 11:27-0400 Systolic blood pressure 108 mm[Hg] Dr. Leidy Beyer Work Phone: [facility] 04-04-2022 10:49-0400 Inhaled oxygen flow rate 2 L/min Dr. Leidy Beyer Work Phone: [facility] 04-03-2022 12:35-0400 Body height 165.[address] Leidy Beyer Work Phone: [facility] 04-03-2022 12:35-0400 Body weight [address] Leidy Beyer Work Phone: [facility] 04-02-2022 14:29-0400 Body mass index (BMI) [Ratio] 24.9 kg/m2 Dr. Leidy Beyer Work Phone: [facility] 04-02-2022 13:37-0400 Body temperature 98.6 [degF] [facility] Work Phone: 04-02-2022 13:37-0400 Diastolic blood pressure 65 mm[Hg] [facility] Work Phone: 04-02-2022 13:37-0400 Heart rate 89 /min [facility] Work Phone: 04-02-2022 13:37-0400 Respiratory rate 19 /min [facility] Work Phone: 04-02-2022 13:37-0400 SaO2% (BldA) [Mass fraction] 93 % [facility] Work Phone: 04-02-2022 13:37-0400 Systolic blood pressure 122 mm[Hg] [facility] Work Phone: 04-02-2022 08:45-0400 Body height 165.1 cm [facility] Work Phone: 04-02-2022 08:45-0400 Body mass index (BMI) [Ratio] 20 kg/m2 [facility] Work Phone: 04-02-2022 08:45-0400 Body weight 54.43 kg [facility] Work Phone: Encounters Encounter Date Encounter Type Care Provider Facility Start: 11-20-2024 End: 11-20-[address] Leidy Beyer DO Work Phone: [facility] Work Phone: Start: 11-20-2024 End: 11-20-[address] Michael Roberson DO -[facility] Start: 11-20-2024 End: 11-20-2024 ambulatory Michael Roberson Facility:[facility] Start: 11-04-2024 End: 11-04-[address] Dank Fuchs DO -[facility] Work Phone: Start: 11-04-2024 End: 11-04-[address] Leidy Beyer DO Work Phone: [facility] Work Phone: Start: 11-04-2024 End: 11-04-2024 Patient encounter procedure Ese Marin NP-C -[facility] Work Phone: Start: 11-04-2024 End: 11-04-[address] Leidy Beyer DO Work Phone: [facility] Work Phone: Start: 10-31-2024 End: 10-31-2024 Patient encounter procedure Ese Marin NP-C -[facility] Work Phone: Start: 10-31-2024 End: 10-31-[address] Leidy Beyer DO Work Phone: [facility] Work Phone: Start: 10-21-2024 Encounter for other preprocedural examination Ese Marin NP [facility] Start: 10-15-2024 End: 10-15-[address] Leidy Beyer DO Work Phone: [facility] Work Phone: Start: 10-15-2024 End: 10-15-2024 Patient encounter procedure Ese Marin NP-C -[facility] Work Phone: Start: 10-15-2024 End: 10-15-2024 ambulatory Ese Marin NP Facility:[facility] Start: 10-10-2024 End: 10-10-2024 Patient encounter procedure Ese Marin DATA COLLECTION INTERVIEWER-C -[facility] Work Phone: Start: 10-10-2024 End: 10-10-2024 ambulatory Ese Marin DATA COLLECTION INTERVIEWER Facility:[facility] Start: 09-30-2024 End: 09-30-[address] Leidy Beyer DO Work Phone: [facility] Work Phone: Start: 09-30-2024 End: 09-30-[address] Michael Roberson DO -[facility] Start: 09-30-2024 End: 09-30-2024 ambulatory Leidy Beyer Facility:[facility] Start: 09-10-2024 End: 09-10-[address] Leidy Beyer DO Work Phone: [facility] Work Phone: Start: 09-10-2024 End: 09-10-[address] Michael Roberson DO -[facility] Work Phone: Start: 09-10-2024 End: 09-10-2024 ambulatory Michael Roberson Facility:[facility] Start: 08-19-2024 End: 08-19-[address] Leidy Beyer DO Work Phone: [facility] Work Phone: Start: 08-19-2024 End: 08-19-[address] Michael Roberson DO -[facility] Start: 08-19-2024 End: 08-19-2024 ambulatory Leidy Beyer Facility:[facility] Start: 02-28-2024 End: 02-28-2024 ambulatory Michael Roberson Facility:[facility] Start: 09-13-2023 End: 09-13-[address] Leidy Beyer Work Phone: [facility] Work Phone: Start: 09-13-2023 End: 09-13-[address] [facility] Start: 08-01-[address] Leidy Beyer Work Phone: [facility] Start: 08-01-2023 End: 08-01-[address] Leidy Beyer Work Phone: [facility] Work Phone: Start: 07-10-2023 End: 07-10-[address] Leidy Beyer Work Phone: [facility] Work Phone: Start: 07-10-2023 End: 07-10-[address] Leidy Beyer Work Phone: [facility] Work Phone: Start: 06-19-2023 End: 06-19-[address] [facility] Work Phone: Start: 06-13-2023 Non-patient / Non-visit Dr. Shabana Beyer Work Phone: [facility] Start: 06-13-2023 End: 06-13-2023 Admission to same day surgery center Dr. Leidy Beyer Work Phone: [facility]-Endoscopy Work Phone: Start: 06-13-2023 End: 06-13-[address] Leidy Beyer Work Phone: [facility] Work Phone: Start: 06-12-[address] Leidy Beyer Work Phone: [facility] Start: 06-12-2023 End: 06-12-[address] Leidy Beyer Work Phone: [facility] Work Phone: Start: 05-23-2023 End: 05-23-[address] Leidy Beyer Work Phone: [facility] Work Phone: Start: 05-02-2023 End: 05-02-[address] Leidy Beyer Work Phone: [facility] Work Phone: Start: 05-02-2023 End: 05-02-[address] Leidy Beyer Work Phone: [facility] Start: 05-01-[address] Leidy Beyer Work Phone: [facility] Start: 05-01-2023 End: 05-01-[address] Leidy Beyer Work Phone: [facility] Work Phone: Start: 04-03-2023 End: 04-03-[address] Leidy Beyer Work Phone: [facility] Work Phone: Start: 03-19-2023 Non-patient / Non-visit Dr. Shabana Beyer Work Phone: [facility] Start: 03-19-2023 End: 03-19-[address] Leidy Beyer Work Phone: [facility] Work Phone: Start: 03-19-2023 End: 03-19-[address] Leidy Beyer Work Phone: [facility]-Cardiovascula r Services Work Phone: Start: 03-19-2023 End: 03-19-[address] Leidy Beyer Work Phone: [facility] Medicine [facility] Work Phone: Start: 03-14-[address] Leidy Beyer Work Phone: [facility] Start: 03-13-2023 End: 03-13-[address] [facility] Work Phone: Start: 03-06-2023 End: 03-06-[address] Leidy Beyer Work Phone: [facility]-Cat [facility] Work Phone: Start: 02-12-2023 End: 02-12-[address] [facility]yer [facility] Work Phone: Start: 02-12-2023 Non-patient / Non-visit Dr. Shabana Beyer [facility] Work [facility]: Start: 02-07-2023 End: 02-07-[address] Le[facility]yer [facility] Work [facility]: Start: 02-06-2023 End: 02-06-[address] Leidy Beyer Work Phone: [facility] Work Phone: Start: 01-31-2023 End: 01-31-[address] [facility] Beyer [facility] Work [facility]: Start: 01-30-2023 End: 01-30-[address] Leidy Beyer Work Phone: [facility] Work Phone: Start: 01-29-2023 Non-patient / Non-visit Dr. Shabana Beyer Work Phone: [facility] Start: 01-26-2023 Non-patient / Non-visit Dr. Shabana Beyer Work Phone: [facility] Start: 01-24-2023 End: 01-24-[address] Leidy Beyer Work Phone: [facility] Work Phone: Start: 01-23-2023 End: 01-23-[address] Leidy Beyer Work Phone: [facility] Work Phone: Start: 01-17-2023 End: 01-17-[address] Leidy Beyer Work Phone: [facility] Work Phone: Start: 01-16-2023 Non-patient / Non-visit Dr. Shbaana Beyer Work Phone: [facility] Work Phone: Start: 01-15-2023 Non-patient / Non-visit Dr. Jose Grace Work Phone: [facility] Work Phone: Start: 01-15-2023 End: 01-16-2023 Evaluation and management of inpatient Dr. Raffi Grace Work Phone: [facility]-Medical Surgical 3 Work Phone: Start: 01-12-[address] Raffi Grace [facility] Phone: [facility] Start: 01-09-2023 End: 01-09-[address] Raffi Grace Work Phone: [facility] Work Phone: Start: 01-09-2023 End: 01-09-[address] Raffi Grace Work Phone: [facility] Work Phone: Start: 01-09-2023 Non-patient / Non-visit Dr. Jose Grace Work Phone: [facility] Start: 01-09-2023 End: 01-09-2023 Admission to same day surgery center Dr. Raffi Grace [facility] Phone: [facility] Start: 01-09-2023 End: 01-09-[address] Raffi Grace Work Phone: [facility] Work Phone: Start: 01-08-[address] Raffi Grace Work Phone: [facility] Start: 01-03-2023 End: 01-03-[address] Raffi Grace Work Phone: [facility] Work Phone: Start: 01-02-2023 End: 01-02-[address] Raffi Grace Work Phone: [facility] Work Phone: Start: 12-28-2022 Non-patient / Non-visit Dr. Jose Grace Work Phone: [facility] Start: 12-28-2022 End: 12-28-[address] Raffi Grcae Work Phone: [facility] Work Phone: Start: 12-27-2022 Non-patient / Non-visit Dr. Jose Grace Work Phone: [facility] Start: 12-26-2022 End: 12-26-[address] Raffi Grace Work Phone: [facility] Work Phone: Start: 12-26-2022 End: 12-26-[address] Raffi Grace Work Phone: [facility] Work Phone: Start: 12-20-2022 Non-patient / Non-visit Dr. Jose Grace Work Phone: [facility] Start: 12-19-2022 End: 12-19-[address] Raffi Grace Work Phone: [facility] Work Phone: Start: 12-14-2022 End: 12-14-[address] Raffi Grace Work Phone: [facility] Work Phone: Start: 11-24-2022 End: 11-24-[address] Raffi Grace Work Phone: [facility] Work Phone: Start: 11-24-2022 End: 11-24-[address] Raffi Grace Work Phone: [facility]-Nuclear Medicine, [facility] Start: 11-23-2022 Non-patient / Non-visit Dr. Jose Grace Work Phone: [facility] Start: 11-22-2022 End: 11-22-[address] Raffi Grace Work Phone: [facility] Work Phone: Start: 11-22-2022 End: 11-22-[address] Raffi Grace Work Phone: [facility]-Pulmonary Services/Neurology Start: 11-17-2022 End: 11-17-[address] Raffi Grace Work Phone: [facility] Work Phone: Start: 11-17-2022 End: 11-17-[address] Raffi Grace Work Phone: [facility]-Sleep Lab Start: 11-16-2022 End: 11-16-[address] Raffi Grace Work Phone: [facility] Start: 11-10-2022 Non-patient / Non-visit Dr. Jose Grace Work Phone: [facility] Start: 11-10-2022 End: 11-10-2022 Admission to same day surgery center Dr. Raffi Grace Work Phone: [facility]-Endoscopy Start: 11-07-2022 Non-patient / Non-visit Dr. Jose Grace Work Phone: [facility] Start: 11-06-2022 Non-patient / Non-visit Dr. Jose Grace Work Phone: [facility] Start: 11-06-2022 Non-patient / Non-visit Dr. Jose Grace Work Phone: [facility] Start: 11-06-2022 End: 11-07-2022 Evaluation and management of inpatient [facility]-Medical Surgical 3 Start: 11-02-2022 End: 11-02-[address] Raffi Grace Work Phone: [facility] Work Phone: Start: 11-02-2022 End: 11-02-2022 Patient encounter procedure [facility] Start: 10-31-2022 Telephone encounter Susana Liu APRN.CNP Work Phone: [facility] Comment on above: Results Start: 10-31-2022 End: 10-31-2022 ambulatory [facility] Facility:[facility] Start: 10-31-2022 End: 10-31-2022 Subsequent hospital visit by physician X[facility] Work Phone: Radiology Comment on above: SOB (shortness of br eath) [R06.02] Start: 10-30-2022 End: 10-30-2022 ambulatory [facility] Facility:[facility] Start: 10-30-2022 End: 10-30-2022 Patient encounter procedure [facility] Work Phone: [facility] Comment on above: Viral upper respirat ory tract infection with cough (Primary Dx); Elevated blood-pressure reading without diagnosis of hypertension; Cough present for greater than 3 weeks; SOB (shortness of breath) Start: 07-27-2022 End: 07-27-[address] Leidy Beyer Work Phone: [facility] Work Phone: Start: 07-27-2022 End: 07-27-[address] Leidy Beyer Work Phone: [facility] Start: 07-05-2022 End: 07-05-2022 [facility] Facility:[facility] Start: 05-03-2022 End: 05-03-[address] Leidy Beyer Work Phone: [facility] Start: 04-04-2022 Non-patient / Non-visit Dr. Shabana Beyer Work Phone: [facility] Start: 04-03-2022 Non-patient / Non-visit Dr. Shabana Beyer Work Phone: [facility] Start: 04-02-2022 End: 04-04-2022 Evaluation and management of inpatient [facility]Pro[facility] Start: 01-19-2021 ambulatory LEIDY BEYER Facility:[facility] Procedures Date Procedure Procedure Detail Performing Clinician Start: 11-20-2024 X-ray of cervical spine Dr. Leidy Beyer DO Work Phone: Start: 10-15-[address] Leidy Beyer DO Work Phone: Start: 10-15-2024 Gram stain microscopy D modesta Beyer DO Work Phone: Start: 10-15-2024 Microbial culture, body fluid Dr. Leidy Beyer DO Work Phone: Start: 10-15-2024 Blood count leukocyt e wbc automated Dr. Leidy Beyer DO Work Phone: Start: 10-15-2024 Mononuclear cell count Dr. Leidy Beyer DO Work Phone: Start: 10-15-2024 Polymorphonuclear le ukocyte count Dr. Leidy Beyer DO Work Phone: Start: 10-15-2024 Ultrasonic guidance for thoracentesis Dr. Leidy Beyer DO Work Phone: Start: 09-30-2024 Positron emission to mography with computed tomography Dr. Leidy Beyer DO Work Phone: Start: 09-10-2024 CT of thorax with contrast Dr. Leidy Beyer DO Work Phone: Start: 07-10-2023 CT of thorax with contrast Dr. Leidy Beyer Work Phone: Start: 06-13-[address] Leidy eden Work Phone: Start: 04-24-2023 PET study for locali zation of tumor Dr. Leidy Beyer Work Phone: Start: 03-06-2023 CT of chest and abdomen Dr. Leidy Beyer Work Phone: Start: 01-15-[address] Leidy Beyer Work Phone: Start: 01-15-2023 Bacteria identified in Blood by Culture Dr. Leidy Beyer Work Phone: Start: 01-15-2023 Investigation of tra nsfusion reaction Dr. Raffi Grace Work Phone: Start: 01-15-2023 Microbial culture, routine Dr. Leidy Beyer Work Phone: Start: 01-15-2023 X-ray of radius and ulna Dr. Raffi Grace Work Phone: Start: 01-09-2023 Radiographic procedu re of chest Dr. Raffi Grace Work Phone: Start: 01-09-2023 Implantation to cardiovascular system Dr. Raffi Grace Work Phone: Start: 01-09-2023 Fluoroscopic guidance Justin Grace Work Phone: Start: 12-26-2022 MRI of brain with contrast Dr. Raffi Grace Work Phone: Start: 12-12-2022 Positron emission to mography with computed tomography Dr. Raffi Grace Work Phone: Start: 11-24-2022 Radionuclide whole b diego bone study Dr. Raffi Grace Work Phone: Start: 11-10-2022 Investigation of tra nsfusion reaction Dr. Raffi Grace Work Phone: Start: 11-10-[address] Raffi Grace Work Phone: Start: 11-02-2022 CT of thorax with contrast Start: 10-31-2022 Radiologic exam chest 2 views Yolette Larsen APRN.CNP Work Phone: Start: 04-03-2022 MRI of brain without contrast Dr. Leidy Beyer Work Phone: Start: 04-03-2022 MRI of lumbar spine Dr. Leidy Beyer Work Phone: Start: 04-03-2022 MRI of thoracic spine Justin Beyer Work Phone: Start: 04-03-[address] Shabana Beyer Work Phone: Start: 04-02-2022 CT of head without contrast Start: 04-02-2022 Plain chest X-ray Bacteria identified in Blood by Culture Dr. Leidy Beyer Work Phone: Bacteria identified in Blood by Culture Dr. Leidy Beyer Work Phone: Respiratory microbial culture Dr. Raffi Grace Work Phone: SARS-CoV-2 & FLU Ant igen (Rapid) SARS-CoV-2 & FLU Ant igen (Rapid) Dr. Leidy Beyer Work Phone: Urine culture Dr. Leidy Beyer Work Phone: Urine culture Dr. Leidy Beyer Work Phone: Urine culture Dr. Leidy Beyer Work Phone: Urine culture Dr. Leidy Beyer Work Phone: Plan of Treatment Date Care Activity Detail Author Start: 10-15-2024 Microscopic observat ion [Identifier] in Body fluid by Cyto stain [facility] Start: 10-15-2024 Patient discharge [facility] Start: 10-15-2024 Vital signs measurements [facility] Start: 02-03-2024 Covid-19 Vaccine ( season) Covid-19 Vaccine () [facility] Start: 02-03-2024 Influenza vaccination Influenza Vacc ine (#1) [facility] Start: 07-10-2023 Venous catheter care management [facility] Start: 06-13-2023 Venous catheter care management [facility] Start: 06-13-2023 Colonoscopy w/biopsy single/multiple COLONOSCOPY AND BIOPSY [facility] Start: 06-13-2023 Patient discharge [facility] Start: 06-04-2023 Advance Directive Discussion Advance Directive Discussion [facility] Start: 05-01-2023 Patient referral [facility] Work Phone: Start: 03-13-2023 Vital signs measurements [facility] Start: 03-06-2023 Venous catheter care management [facility] Start: 02-06-2023 Vital signs measurements [facility] Start: 02-02-2023 Influenza vaccination INFLUENZ A (Season Ended) [facility] Start: 01-30-2023 Vital signs measurements [facility] Start: 01-23-2023 Vital signs measurements [facility] Start: 01-16-2023 Patient discharge [facility] Start: 01-15-2023 Anaerobic Culture Anaerobic Culture [facility] Start: 01-15-2023 Bacteria identified in Blood by Culture Blood Culture [facility] Start: 01-15-2023 Microscopic observat ion [Identifier] in Unspecified specimen by Gram stain Gram Stain [facility] Start: 01-15-2023 Wound Culture Wound Culture [facility] Start: 01-15-2023 Assessment of risk o f venous thromboembolism [facility] Start: 01-15-2023 Elevation of affecte d extremity [facility] Start: 01-15-2023 Inhalation therapy procedure [facility] Start: 01-15-2023 Insertion of cathete r into peripheral vein [facility] Start: 01-15-2023 Introduction of urin britney catheter [facility] Start: 01-15-2023 Measuring intake and output [facility] Start: 01-15-2023 Oxygen therapy [facility] Start: 01-15-2023 Providing care accor ding to standard [facility] Start: 01-15-2023 Provision of activit y privileges [facility] Start: 01-15-2023 Referral to service [facility] Start: 01-15-2023 Wound care [facility] Start: 01-15-2023 [facility] Start: 01-15-2023 Bacterial nucleic ac id assay [facility] Start: 01-15-2023 End: 01-15-2023 [facility] Start: 01-15-2023 Verification routine [facility] Start: 01-15-2023 Admission procedure [facility] Start: 01-15-2023 End: 01-15-2023 Blood culture [facility] Start: 01-15-2023 Following clinical pathway protocol [facility] Start: 01-15-2023 [facility] Start: 01-09-2023 Anesthesia access ce ntral venous circulation ANESTH VASCULAR ACCESS [facility] Start: 01-09-2023 Insj tunneled ctr va d w/subq port age 6 yr/> INSERT TUNNELED CV CATH [facility] Start: 01-09-2023 Patient discharge [facility] Start: 01-09-2023 Blood chemistry [facility] Start: 01-09-2023 Vital signs measurements [facility] Start: 01-09-2023 [facility] Start: 01-02-2023 Venous catheter care management [facility] Start: 01-02-2023 Vital signs measurements [facility] Start: 12-14-2022 Patient referral [facility] Work Phone: Start: 11-24-2022 NM Whole body Bone Views [facility] Start: 11-24-2022 Radionuclide whole b diego bone study Bone Scan Whole Body [facility] Start: 11-16-2022 Patient referral [facility] Work Phone: Start: 11-10-2022 Spirometry [facility] Start: 11-10-2022 Bronchoscopy needle bx trachea main stem&/bron BRONCHOSCOPY/NEEDLE BX EACH [facility] Start: 11-10-2022 Patient discharge [facility] Start: 11-07-2022 Patient discharge [facility] Start: 11-07-2022 Bronchoscopy Bronchoscopy ( MAC) (Not Applicable) [facility] Start: 11-07-2022 Plain chest X-ray Chest PA and Later al [facility] Start: 11-06-2022 Bronchoscopy [facility] Start: 11-06-2022 Catheterization of vein [facility] Start: 11-06-2022 Vital signs measurements [facility] Start: 11-06-2022 End: 11-06-2022 [facility] Start: 11-06-2022 Oxygen therapy [facility] Start: 11-06-2022 Application of intermittent pneumatic compression device [facility] Start: 11-06-2022 Following clinical pathway protocol [facility] Start: 11-06-2022 Ambulation without limitation [facility] Start: 11-06-2022 Assessment of risk o f venous thromboembolism [facility] Start: 11-06-2022 Consultation [facility] Start: 11-06-2022 Insertion of cathete r into peripheral vein [facility] Start: 11-06-2022 Providing care accor ding to standard [facility] Start: 11-06-2022 [facility] Start: 11-06-2022 Verification routine [facility] Start: 11-06-2022 Admission procedure [facility] Start: 11-06-2022 Consultation [facility] Start: 11-06-2022 [facility] Start: 11-06-2022 Inhalation therapy procedure [facility] Start: 11-06-2022 Patient referral to dietitian [facility] Start: 10-30-2022 End: 11-13-2022 Radiologic exam chest 2 views XR CHEST 2V FRONTAL/LAT Radiology STAT SOB (shortness of breath) Expected: 10/30/2022, Expires: 11/13/2022 [facility] Work Phone: Comment on above: Expected: 10/30/2022 , Expires: 11/13/2022 Start: 06-04-2022 ADVANCE DIRECTIVE DISCUSSION ADVANCE DIRECTIVE DISCUSSION [facility] Start: 06-04-2022 DEPRESSION ASSESSMENT DEPRESSION ASS ESSMENT [facility] Start: 04-11-2022 Blood chemistry [facility] Work Phone: Start: 04-10-2022 Blood chemistry [facility] Work Phone: Start: 04-09-2022 Blood chemistry [facility] Work Phone: Start: 04-08-2022 Blood chemistry [facility] Work Phone: Start: 04-07-2022 Blood chemistry [facility] Work Phone: Start: 04-06-2022 Blood chemistry [facility] Work Phone: Start: 04-05-2022 Blood chemistry [facility] Work Phone: Start: 04-04-2022 Patient discharge [facility] Start: 04-03-2022 [facility] Work Phone: Start: 04-02-2022 Oxygen therapy [facility] Start: 04-02-2022 Verification routine [facility] Work Phone: Start: 04-02-2022 Following clinical pathway protocol [facility] Start: 04-02-2022 Ambulation without limitation [facility] Start: 04-02-2022 Assessment of risk o f venous thromboembolism [facility] Start: 04-02-2022 Cardiac monitoring [facility] Start: 04-02-2022 Catheterization of vein [facility] Start: 04-02-2022 Continuous pulse oximetry [facility] Start: 04-02-2022 Insertion of cathete r into peripheral vein [facility] Start: 04-02-2022 Measuring intake and output [facility] Start: 04-02-2022 Notification of physician [facility] Start: 04-02-2022 Providing care accor ding to standard [facility] Start: 04-02-2022 Referral to occupati onal therapist [facility] Start: 04-02-2022 Referral to service [facility] Start: 04-02-2022 Verification routine [facility] Work Phone: Start: 04-02-2022 Admission procedure [facility] Start: 04-02-2022 End: 04-02-2022 Blood culture [facility] Work Phone: Start: 04-02-2022 End: 04-02-2022 [facility] Start: 04-02-2022 Patient referral to dietitian [facility] Start: 08-30-2021 COVID-19 VACCINE (4 - Booster for Pfizer series) COVID-19 VACCINE (4 - Booster for Pfizer series) [facility] Start: 08-21-2016 BONE DENSITY BONE DENSITY [facility] Start: 08-21-2016 Pneumococcal Vaccine : 65+ (1 of 1 - PCV) Pneumococcal Vaccine: 65+ (1 of 1 - PCV) [facility] Start: 08-21-2016 PNEUMOCOCCAL: 65+ (1 - PCV) PNEUMOCOCCAL: 65+ (1 - PCV) [facility] Start: 08-21-2016 Screening for osteoporosis Bone Density Screening [facility] Start: 2011 RSV Vaccine (1 - 1-d ose 60+ series) RSV Vaccine (1 - 1-dose 60+ series) [facility] Start: 08-21-2001 SHINGRIX VACCINE (1 of 2) SANTANA GRIX VACCINE (1 of 2) [facility] Start: 08-21-1996 COLOGUARD (FIT-DNA) COLOGUARD (FIT-D NA) [facility] Start: 08-21-1996 Colonoscopy COLONOSCOPY [facility] Start: 08-21-1996 COLORECTAL CANCER SCREENING COLORECTAL CANCER SCREENING [facility] Start: 08-21-[address] COLONOGRAPHY [facility] Start: 08-21-1996 DIABET[facility] Start: 08-21-1996 Diabetes Screening Diabetes Screenin g [facility] Start: 08-21-1996 FECAL OCCULT BLOOD FECAL OCCULT BLOO D [facility] Start: 08-21-1996 Lipid panel Lipid Screening [facility] Start: 08-21-1996 LIPID SCREEN LIPID SCREEN [facility] Start: 08-21-1996 Screening for malign ant neoplasm of colon [facility] Start: 08-21-1996 SIGMOIDOSCOPY SIGMOIDOSCOPY [facility] Start: 1991 Mammography MAMMOGRAM [facility] Start: 1991 Screening for malign ant neoplasm of breast Mammogram Screening [facility] Start: 08-21-1970 Urine microalbumin profile [facility] Start: 08-21-1969 Anxiety Screening Anxiety Screening [facility] Start: 08-21-1969 Depression Screening Depression Scre ening [facility] Start: 08-21-1969 HEPATITIS C SCREENING HEPATITIS C [facility] Start: 08-21-1969 Hepatitis C screening Hepatitis C [facility] Aldolase [Enzymatic activity/volume] in Serum or Plasma [facility] Work Phone: Anion gap measurement [facility] Work Phone: Anion gap measurement [facility] Bacteria identified in Blood by Culture Blood Culture [facility] Work Phone: Bacteria identified in Unspecified specimen by Anaerobe culture [facility] Bacteria identified in Urine by Culture [facility] Work Phone: Blood chemistry [facility] Blood chemistry [facility] Blood culture [facility] Work Phone: BUN/Creatinine ratio [facility] Work Phone: BUN/Creatinine ratio [facility] Calcium [Mass/volume ] in Serum or Plasma [facility] Work Phone: Calcium [Mass/volume ] in Serum or Plasma [facility] Carbon dioxide, tota l [Moles/volume] in Serum or Plasma [facility] Work Phone: Carbon dioxide, tota l [Moles/volume] in Serum or Plasma [facility] CBC W Auto Different ial panel - Blood [facility] CBC W Auto Different ial panel - Blood [facility] Cell count and Differential panel - Body fluid [facility] Chloride [Moles/volu me] in Serum or Plasma [facility] Work Phone: Chloride [Moles/volu me] in Serum or Plasma [facility] Colonoscopy [facility] Creatinine [Moles/vo lume] in Serum or Plasma [facility] Work Phone: Creatinine [Moles/vo lume] in Serum or Plasma [facility] CT Chest and Abdomen W contrast IV [facility] CT Chest W contrast IV [facility] CT Chest W contrast IV [facility] Cytology report of B diego fluid Cyto stain [facility] Exercise tolerance test [facility] Glucose [Mass/volume ] in Serum or Plasma [facility] Work Phone: Glucose [Mass/volume ] in Serum or Plasma [facility] Hematocrit [Volume Fraction] of Blood [facility] Work Phone: Hematocrit [Volume Fraction] of Blood [facility] Hemoglobin [Mass/vol ume] in Blood [facility] Work Phone: Hemoglobin [Mass/vol ume] in Blood [facility] Lactate dehydrogenas e [Enzymatic activity/volume] in Body fluid by Pyruvate to lactate reaction [facility] Lactate dehydrogenas e measurement [facility] Leukocytes [#/volume ] in Blood [facility] Work Phone: Leukocytes [#/volume ] in Blood [facility] Magnesium [Mass/volu me] in Serum or Plasma [facility] Work Phone: Magnesium [Mass/volu me] in Serum or Plasma [facility] Magnesium [Mass/volu me] in Serum or Plasma [facility] Magnesium [Mass/volu me] in Serum or Plasma [facility] Mean corpuscular hemoglobin concentration determination [facility] Work Phone: Mean corpuscular hemoglobin concentration determination [facility] Mean corpuscular hemoglobin determination [facility] Work Phone: Mean corpuscular hemoglobin determination [facility] Measurement of renal function [facility] Work Phone: Measurement of renal function [facility] Measurement of respiratory function [facility] Microbial culture, b diego fluid [facility] Microscopic observat ion [Identifier] in Body fluid by Cyto stain [facility] Neutrophil count [facility] Work Phone: Neutrophil count [facility] Neutrophil percent differential count [facility] Work Phone: Neutrophil percent differential count [facility] NM Whole body Bone Views [facility] Partial thromboplast in time, activated [facility] Patient Education RAD RN Thoracentesis Dc [facility] Work Phone: Patient referral [facility] Work Phone: PET CT of whole body [facility] Platelets [#/volume] in Blood [facility] Work Phone: Platelets [#/volume] in Blood [facility] Potassium [Moles/vol ume] in Serum or Plasma [facility] Work Phone: Potassium [Moles/vol ume] in Serum or Plasma [facility] Protein [Mass/volume ] in Body fluid [facility] Protein [Mass/volume ] in Serum or Plasma [facility] Prothrombin time [facility] PT Unspecified body region [facility] Radiation oncology A ND/OR radiotherapy [facility] Radiation oncology A ND/OR radiotherapy [facility] Red blood cell count [facility] Work Phone: Red blood cell count [facility] Red cell distributio n width determination [facility] Work Phone: Red cell distributio n width determination [facility] Sodium [Moles/volume ] in Serum or Plasma [facility] Work Phone: Sodium [Moles/volume ] in Serum or Plasma [facility] Ultrasonic guidance for thoracentesis [facility] Urea nitrogen [Mass/volume] in Serum or Plasma [facility] Work Phone: Urea nitrogen [Mass/volume] in Serum or Plasma [facility] Immunizations Immunization Date Immunization Notes Care Provider Fa mirian 01-15-2023 tetanus toxoid, redu shane diphtheria toxoid, and acellular pertussis vaccine, adsorbed Dr. Raffi Grace Work Phone: [facility] 07-05-2021 Covid (Moderna) Dr. Leidy blackwell Work Phone: [facility] 02-18-2014 influenza, injectabl e, quadrivalent, preservative free Dr. Leidy Beyer Work Phone: [facility] 02-18-2014 influenza, seasonal, injectable [facility] 02-18-2014 influenza virus vaccine, unspecified formulation [facility] [place] Work Phone: [facility] Payers Date Payer Category Payer Medicaid [id number] 2024 Self-pay [id number] 2024 Unknown [id number] 2021 Medicare [id number] 2021 Unknown [id number] 2020 Unknown [id number] 2020 Medicare [id number] 2016 Medicare [employer] PPO [id number] 1950 Unknown [id number] Unknown [id number] 2.16.8 [id number] Unknown [id number] 2.16.8 [id number] Unknown [id number] 2.16.8 [id number] Unknown [id number] 2.16.8 [id number] Unknown [id number] 2.16.8 [id number] Unknown [id number] 2.16.8 [id number] Unknown [id number] 2.16.8 [id number] Unknown [id number] 2.16.8 [id number] Unknown [id number] 2.16.8 [id number] Unknown [id number] 2.16.8 [id number] Social History Date Type Detail Facility Start: 04-02-2022 End: 06-19-2023 Tobacco smoking status RIIS Unknown if ever smoked [facility] Start: 1950 Sex Assigned At Female [facility] Start: 10-30-2022 End: 12-16-2023 Tobacco smoking status RIIS Ex-smoker [facility] History of tobacco use Current smoker [facility] History of tobacco use Cigarette Smoker [facility] History of tobacco use Passive smoker [facility] Start: 10-30-2022 Tobacco use and exposure Smokeless tobacco non-user [facility] Start: 1950 Sex Assigned At Not on file [facility] Start: 12-28-2020 End: 10-30-2022 History of Social function [facility] Start: 12-28-2020 End: 10-30-2022 Tobacco use panel [facility] National Score (1-100), lower number is lower risk Not on file [facility] Start: 08-28-2024 End: 09-16-2024 Sex Female (finding) [facility] NEGATED: Highlighted row [facility] Medical Equipment Procedure Code Equipment Code Equipment Origin al Text Equipment Identifier Dates Insertion, vascular access port ([id number]) Vascular port/catheter ([id number] FDA Start: 01-09-2023 Goals Date Patient Goal Desired Activity /State Functional Status Date Assessment Result Facility 01-16-2023 Functional status Bedrest [facility] Work Phone: 11-10-2022 Functional status Ambulates;Up ad leonila [facility] Work Phone: 11-07-2022 Functional status Up ad leonila [facility] Work Phone: 04-04-2022 Functional status Chair [facility] Work Phone: 04-04-2022 Functional status None [facility] Work Phone: Mental Status Date Assessment Result Facility 10-15-2024 Cognitive function Level Of Cons ciousness Awake;Alert;Appropriate;Follow s Commands [facility] Work Phone: 06-13-2023 Cognitive function Level Of Cons ciousness Awake;Alert;Appropriate [facility] Work Phone: 06-13-2023 Cognitive function Voice/Name [facility] Work Phone: 04-04-2023 Cognitive function Awake;Alert;A ppropriate;Follow s Commands [facility] Work Phone: 01-09-2023 Cognitive function Voice/Name [facility] Work Phone: 11-10-2022 Cognitive function Voice/Name [facility] Work Phone: 11-07-2022 Cognitive function Voice/Name [facility] Work Phone: 04-04-2022 Cognitive function Voice/Name [facility] Work Phone: 04-02-2022 Cognitive function Level Of Cons ciousness Awake;Alert;Appropriate [facility] Work Phone: Clinical Notes 07-05-2022 to 11-21-2024 Note Date & Type Note Facility 11-21-2024 Radiology Diagnostic study note [facility] Services [address] [place], [place] [address] Cerv Spine 4 or 5 Views MR#: [id number] Acct: [id number] Name: AMOL MCKEON Rep #: [id number] : 1950 F 74 From: Carina Simmons MD PCP: Dr. Leidy Beyer DO Status: REG CLI Study:Cerv Spine 4 or 5 Views Date of Exam: 11/20/24 Exam# [id number] Ordering Dr: Michael Roberson DO PROCEDURE: CERV SPINE 4 OR 5 VIEWS 11/20/2024 REASON FOR EXAM: CERVICALGIA TECHNIQUE: CERV SPINE 4 OR 5 VIEWS COMPARISON: None. FINDINGS: Grade 1 retrolisthesis of C4 on C5 measuring 4.2 mm. There are diffuse spondylotic changes. Findings are demonstrated to by diffuse disc space narrowing, osteophyte formation and degenerative endplate sclerosis. There is diffuse facet joint arthropathy with secondary bilateral neural foramina narrowing. No fracture or dislocation is seen. No aggressive lytic or blastic bony lesion is noted. RAD/Cerv Spine 4 or 5 Views IMPRESSION: Spondylosis. Grade 1 anterolisthesis of C4 on C5. No radiographic evidence of an acute bone abnormality. [facility] CC: Dr. Leidy Beyer DO; Dr. Michael Roberson DO ~ Account Services Specialist: Signed [facility] 11-04-2024 Progress note [facility] 10-15-2024 Radiology Diagnostic study note [facility] Services [address] [place] [address] Thoracentesis W US MR#: [id number] Acct: [id number] Name: AMOL MCKEON Rep #: [id number] : 1950 F 74 From: Matthieu Barroso MD PCP: Dr. Leidy Beyer DO Status: REG CLI Study:Thoracentesis W US Date of Exam: 0 10/15/24 Exam# [id number] Ordering Dr: Hai Marin NP DATA COLLECTION INTERVIEWER-C PROCEDURE: THORACENTESIS W US 10/15/2024 REASON FOR EXAM: PLEURAL EFFUSION TECHNIQUE: Procedure: Following informed consent, and using standard sterile technique, a right-sided thoracentesis was performed under ultrasound guidance, via a posterior approach. 2% lidocaine local anesthesia was followed by placement of a 5 Lithuanian catheter into the pleural fluid collection. Approximately 450 mL keyla colored clear fluid was successfully removed. Of this, 120 mL was sent to the laboratory for evaluation. No complication was encountered, and the patientleft the department in good condition, without significant complaint. COMPARISON: None. US/Thoracentesis W US IMPRESSION: Successful ultrasound-guided right thoracentesis. Laboratory results pending. Reading Location: [place] [address] CC: DATA COLLECTION INTERVIEWER-C Ese Marin; Dr. 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 October 10 10:20am Unstable gait chronic October 10 10:20am Cough noneactive October 10, 2024 10:20am [facility] Work Phone: 1(285) 876-276305-09-2025 Evaluation note* Diagnosis Onset Date Resolution Status Admit Date Pleural effusion acute October 10, 2024 10:20am Shortness of breath acute October 102024 10:20am Chronic respiratory failure with hypoxia chronic October 10, 2024 10 :20am Primary cancer of right uppe r lobe of lung chronic October 10, 2024 10 :20am Stage 2 moderate COPD by GOL D classification chronic October 10, 2024 10 :20am Unstable gait chronic October 10 10:20am Cough noneactive October 10, 2024 10:20am Pleural effusion acute October 7:29am Primary cancer of right uppe r lobe of lung chronic October 31, 2024 7 :29am Stage 2 moderate COPD by GOL D classification chronic October 31, 2024 7 :29am Mediastinal lymphadenopathy acute November 04, 2024 12:36pm [facility] Work Phone: 1(282) 110-889205-09-2025 Evaluation note* Diagnosis Onset Date Resolution Status Admit Date Pleural effusion acute October 10, 2024 10:20am Shortness of breath acute October 102024 10:20am Chronic respiratory failure with hypoxia chronic October 10, 2024 10 :20am Primary cancer of right uppe r lobe of lung chronic October 10, 2024 10 :20am Stage 2 moderate COPD by GOL D classification chronic October 10, 2024 10 :20am Unstable gait chronic October 10 10:20am Cough noneactive October 10, 2024 10:20am Pleural effusion acute October 7:29am Primary cancer of right uppe r lobe of lung chronic October 31, 2024 7 :29am Stage 2 moderate COPD by GOL D classification chronic October 31, 2024 7 :29am Mediastinal lymphadenopathy acute November 04, 2024 12:36pm Pleural effusion acute November 12:36pm Shortness of breath acute November 04, 2024 12:36pm Primary cancer of right uppe r lobe of lung chronic November 04, 2024 12:36pm Mediastinal lymphadenopathy acute November 04, 2024 2:05pm Primary cancer of right uppe r lobe of lung chronic November 04, 2024 2 :05pm [facility] Work Phone: 1(955) 353-677504-10-2025 Radiology Diagnostic study note [facility] Imaging Services [address] [place], [place] [address] Chest WITH Contrast MR#: [id number] Acct: [id number] Name: AMOL MCKEON Rep #: [id number] : 1950 F 74 From: Judi Schwartz MD PCP: Dr. Leidy Beyer DO Status: REG CLI Study:Chest WITH Contrast Date of Exam: 09/10/24 Exam# [id number] Ordering Dr: Michael Roberson DO PROCEDURE: CHEST WITH CONTRAST 09/10/2024 REASON FOR EXAM: HX LUNG CA/PLEURAL EFFUSION TECHNIQUE: Prone and supine chest CT with intravenous contrast, high resolution CT (HRCT) protocol. Coronal and Sagittal reconstruction series were provided. CONTRAST: Isovue 370 VOLUME: 100 ML 18 gauge IV One or more dose reduction techniques were used (e.g., Automated exposure control, adjustment of the mA and/or kV according to patient size, use of iterative reconstruction technique). RADIATION DOSE SUMMARY: CTDlvol: 7.1 mGy DLP: 252.3 mGycm COMPARISON: None available FINDINGS: Hardware: None Lymph nodes: No lymphadenopathy. Heart and Vasculature: The heart is normal in size. The great vessels are normal in size and caliber. Lungs and Airways: Central airways are patent. There is complete atelectasis ofthe right lower lobe. Patchy opacities within the right upper lobe, and right lower lobe likely representing atelectasis or multifocal infection or underlying tumor. Bullous changes within the right apical lung. Pleura: Moderate to large right-sided pleural effusion. Upper Abdomen: Partially visualized upper abdomen demonstrates no acute abnormality. Bones: No aggressive osseous lesions. No acute fractures. CT/Chest WITH Contrast IMPRESSION: *There is probable near-complete atelectasis of the right lower lobe with patchyopacities within the right upper lobe and right middle lobe possibly representing atelectasis, or infection or underlying tumor. *Small to moderate right-sided pleural effusion. *Bullous changes within the right apical lung. Reading Location: [facility] CC: Dr. Leidy Beyer DO; Dr. Michael Roberson DO ~ Account Services Specialist: Signed [facility]01-10-2024 History and physical note Author Roberto Guidry [facility] June 13, 2023 1:26pm Note Date/Time June 13, 2023 1 :26pm [facility] Medical Records Department [address] [place] [address] History & Physical Exam 06/13/23 1325 MR#: [id number] Acct: [id number] Name: AMOL MCKEON Rep #:[id number] : 1950 72 From: Roberto Anderson PCP: Dr. Leidy Beyer DO Status:[facility] Location: [place] [address] History and Physical Date of Admission: 06/13/23 Date of Service: 05/23/23 MR#: [id number] Acct: [id number] Name: AMOL MCKEON Rep #: [id number] : 1950 Provider: Dr. Roberto Guidry MD Age/Sex: 72/F Location: [facility] Status: Signed Intake Vital Signs 05/01/2315:04 05/23/2309:15 Height 5 ft 5 in 5 ft 5 in Weight: 125 lb BMI 20.7 BP 124/83 H Blood Pressure Location Rt brachial Respiration 16 Intake Visit Reasons: ABNORMAL PET- COLONOSCOPY Chief Complaint: c-scope Portal Architect Required: No Is patient in pain?: No Allergies cheese Allergy (Verified 05/23/23 09:15) Hiveschocolate flavor Allergy (Verified 05/23/23 09:15) Rash Medications clonazepam 1 mg tablet 2 mg PO QHS ANXIETY 12/28/20 [History Confirmed 05/23/23] aspirin 81 mg tablet,delayed release 81 mg PO DAILY HEART HEALTH 11/06/22 [History Confirmed 05/23/23] calcium carbonate 500 mg-vitamin D3 3.125 mcg (125 unit) tablet 1 tab PO DAILY SUPPLEMENT 11/06/22 [History Confirmed 05/23/23] tiotropium 2.5 mcg-olodaterol 2.5 mcg/actuation mist for inhalation (Stiolto Respimat) 2 puff inhalation DAILY COPD #4 grams 11/29/22 [Rx Confirmed 05/23/23] levothyroxine 100 mcg tablet 100 mcg PO DAILY 12/28/22 [History Confirmed 05/23/23] lidocaine-prilocaine 2.5 %-2.5 % topical cream 1 applic topical ONCE PRN port access 30 days #30 grams 12/28/22 [Rx Confirmed 05/23/23] ondansetron 8 mg disintegrating tablet 8 mg PO Q8H PRN nausea and vomiting #30 tabs 12/28/22 [Rx Confirmed 05/23/23] loperamide 15 ml PO Q8H PRN PRN diarrhea 01/15/23 [History Confirmed 05/23/23] Hair Prosthesis #1 ea 03/13/23 [Rx Confirmed 05/23/23] benzonatate 200 mg capsule 200 mg PO TID #30 caps 03/26/23 [Rx Confirmed 05/23/23] diclofenac sodium 1 % topical gel 2 g topical ONCE 04/03/23 [History Confirmed 05/23/23] potassium gluconate 600 mg (99 mg) tablet 600 mg PO DAILY 05/01/23 [History Confirmed 05/23/23] tizanidine 4 mg tablet 4 mg PO QHS PRN 05/01/23 [History Confirmed 05/23/23] PFSH Medical History Cat bite of left forearm with infection Cataract Chronic respiratory failure with hypoxia Encounter for chemotherapy management Essential hypertension Former smoker Graves disease HLD (hyperlipidemia) Hypothyroidism Loss of hearing Primary cancer of bronchus of right lower lobe Regional lymph node metastasis present Restless leg syndrome Squamous cell carcinoma of lung, stage III Stage 2 moderate COPD by GOLD classification Tetanus toxoid vaccination administered at current visit TIA (transient ischemic attack) Wears dentures Surgical History History of appendectomy History of hysterectomy Family History Mother HypertensionFather Hypertension Social History household members: none Smoking Status: Former smoker alcohol intake: never substance use type: does not use HPI HPI HPI: Patient is a 72-year-old female who is known to me from a prior right chest portplacement 01/09/2023. She confirms that she has done well through her chemotherapy and radiation and is now considered in remission. She shares that she was offered immunotherapy but is declining as she does not perceive it to hailey meaningful enough difference in her risk for relapse. She confirms that she is aware of her recent pet imaging that showed some increased FDG activity in her rectum. She shares that she is suspicious that this may be related to hemorrhoids. She shares that she had very significant hemorrhoids during her and this was responsive to Preparation H. She shares that she has hadactually no issues since that time until she was in the midst of her chemotherapy. Once again she tried Preparation H and she confirms that she has been better for the past 2 weeks. Overall she describes her bowel movements as soft (they were little pellets during chemotherapy) and occurring 1 time per day. She also notes that they are light brown and she has not noticed any blood. She also denies any straining or any caliber change. She reports that her last colonoscopy was in [address] Hernandez and that she was given a 10-year follow- up on the account of a little polyp. Her biggest memory from this experience was that she awoken during the sedation and was talking with Dr. Stauffer throughout the procedure. Patient has now family history of colon cancer, inflammatory bowel disease, or diverticulitis. The patient's weight is not stable and she confesses to significant weight loss through her treatment for the lung cancer but is trying to regain some of this with. The patient is not prescribed anticoagulants/blood thinners. Patient does not have a significant history of GERD/heartburn. ROS General General: Yes weight change, appetite and fatigue; No colon cancer, breast cancer or weakness HEENT HEENT: Yes eye surgery; No difficulty swallowing, eye injury, swollen glands or hoarseness Endo Endocrine: Yes thyroid disease; No diabetes mellitus, thyroid cancer, Hair loss, heat intolerance or cold intolerance Skin Skin: No rash or changing moles Breast Breast: No left breast lump, right breast lump, nipple discharge, breast pain, abnormal mammogram, abnormal US or breast enlargement Musc Musculoskeletal: No back problems, arthritis, rheumatoid arthritis, gout or joint pain Cardio Cardiovascular: Yes atrial fibrillation; No murmur, pacemaker, heart disease, high blood pressure, heart attack, heart stent, palpitations, shortness of breat with exertion or chest pain Psych Psychiatric: No depression, anxiety or hearing voices Resp Respiratory: No shortness of breath, No sleep apnea, No cough, No COPD, No asthma, No emphysema and No wheezing Gastro Gastrointestinal: No abdominal pain, No nausea or vomiting, No diarrhea, Yes constipation, No blood in stool, No acid reflux, Yes hemorrhoids, No ulcers, No gallbladder problem and No black,tarry stools Brady Hematologic: No blood thinners, No blood disorders, No bleeding, No anemia and No blood clots Neuro Neurologic: No system reviewed and no additional complaints, except as documented, No as per HPI, No abnormal gait, No abnormal hearing, No abnormal movements, No abnormal speech, No behavioral changes, No burning sensations, No confusion, No convulsions, No disequilibrium, No dizziness, No localized weakness, No frequent falls, No headache(s), No lack of coordination, No loss ofvision, No memory loss, No numbness, No other visual disturbances, No radicular pain, No restless legs, No sensory deficit, No syncope, No tingling, No tremor(s), No weakness and No other Exam Const General: cooperative and comfortable Orientation: alert, awake and oriented x3 GI Other: Rectal exam deferred per patient's preference and acceptance of recommendation for diagnostic colonoscopy Assessment and Plan Assessment and Plan (1) Abnormal PET scan of colon: Status: Acute Comment: This is a 72-year-old female currently in remission for lung cancer who did showsome PET avidity within the rectum during routine surveillance imaging. She describes some active hemorrhoidal disease during this image acquisition. Still, her last colonoscopy was 8 years ago and given her recent history I agreewith the belief that she requires a dedicated, diagnostic study to confirm thereis nothing more within the rectum besides hemorrhoidal inflammation. Mrs. Mckeon readily accepts the recommendation to proceed diagnostic colonoscopy and we spent part of the visit discussing bowel prep instructions. We will look to schedule this at his first mutually agreeable date Plan: Plan will be to complete colonoscopy on first mutually agreeable under local MAC. Pre-procedure prep discussed and paper instructions provided. Patient is also made aware that she will need to have a test driver with her the day of the procedure. I have examined the patient and the H&P has been reviewed. There are no clinicalchanges since date of exam. Patient reports that she completed prep without issue and that her output is now clear. She denies any recurrence of her hemorrhoid activity. She is without complaint today other than that she is hungry. Post procedure expectations and processing times were reviewed. Neither patient nor her daughter have any further questions. Will proceed to endoscopy suite for diagnostic colonoscopy as discussed in detail above. 06/13/23 1326 <Electronically signed by Roberto Guidry MD> Cosigner Signature (if applicable): CC: Dr. Leidy Beyer DO; Dr. Roberto Guidry MD~ Signed [facility] Work Phone: 1([phone]) 500-892701-10-2024 Procedure [facility] 06-13-2023 Procedure [facility]08-14-2023 Progress note Author Michael Pina [facility] January 15, 2023 5:31pm Note Date/Time January 15, 2023 5: 31pm [facility] Medical Records Department [address] [place] [address] Progress Note - Hospitalist 01/15/231728 MR#: [id number] Acct: [id number] Name: AMOL MCKEON Rep #:[id number] : 1950 72 From: Michael Pina DO PCP: Dr. Leidy Beyer DO Status:ADM IN Location: [place] [address] Hospitalist Note Patient was seen and examined briefly today, she was admitted for cellulitis of her left forearm secondary to a cat bite which she sustained on Sunday. I hadnursing discussed the patient's allergies with her, she confirms that she is able to take Augmentin although she has penicillin listed as an allergy. I havedecided at this time to change her antibiotics from Rocephin and Flagyl to Unasyn. Patient also requests that she be given Pepcid instead of Protonix, I have stopped her Protonix and placed her on oral Pepcid. 01/15/231730 <Electronically signed by Michael Pina DO> Cosigner Signature (if applicable): CC: ~ Signed [facility] Work Phone: 1(503) 923-380508-14-2023 Discharge summary Author Conner Mcclure [facility] January 15, 2023 6:57am Note Date/Time January 15, 2023 [facility] [address] [place] [address] Emergency Department Summary 01/15/23 MR#: [id number] Acct: [id number] Name: AMOL MCKEON Rep #:[id number] : 1950 72 From: Conner Álvarez PCP: Dr. Leidy Beyer DO Status:ADM IN Location: [place] [address] HPI History of Present Illness Chief Complaint: Bite Informant: patient Narrative Narrative: Left hand dominant female presents By infection left forearm. Home cat, stated daughter brought her dogs over got her cat worked up. She got bitten left forearm. This does not happen the past. Her cats immunizations up-to-date. Patient tetanus unknown. Denies fever or chills. She states that evening therewas redness up the forearm that has maintained. She cleansed it with peroxide initially. She does have a recent history of stage III squamous cell carcinoma diagnosed a few months ago she is currently going through chemoradiation. Last chemo treatment 5 days ago radiation treatment 6 days ago. Remote tobacco stopped in 2014. Allergies penicillin causing swelling locally. No lip or tongue swelling. No trouble breathing. In addition states recent indigestion states prescription of Pepcid would help however cause diarrhea for which she takes Imodium. Denies abdominal pain. Reports there is pus draining from one of the wound sites. Tetanus Immunization: Unknown Prior similar symptoms: No PFSH PFSH Medical History Cataract Chronic respiratory failure with hypoxia Essential hypertension Former smoker Graves disease HLD (hyperlipidemia) Hypothyroidism Loss of hearing Regional lymph node metastasis present Restless leg syndrome Squamous cell carcinoma of lung, stage III Stage 2 moderate COPD by GOLD classification TIA (transient ischemic attack) Wears dentures Home Medications clonazepam 1 mg tablet 2 mg PO QHS ANXIETY 12/28/20 [History Last Taken 11/05/22] cholecalciferol (vitamin D3) 10 mcg (400 unit) capsule (Vitamin D3) 10 mcg PO DAILY SUPPLEMENT 04/02/22 [History Last Taken 11/05/22] aspirin 81 mg tablet,delayed release 81 mg PO DAILY HEART HEALTH 11/06/22 [History Last Taken 11/05/22] calcium carbonate 500 mg-vitamin D3 3.125 mcg (125 unit) tablet 1 tab PO DAILY SUPPLEMENT 11/06/22 [History Last Taken 11/05/22] tiotropium 2.5 mcg-olodaterol 2.5 mcg/actuation mist for inhalation (Stiolto Respimat) 2 puff inhalation DAILY COPD #4 grams 11/29/22 [Rx Last Taken Unknown] benzonatate 200 mg capsule 200 mg PO TID #30 caps 12/28/22 [Rx Last Taken Unknown] levothyroxine 100 mcg tablet 100 mcg PO DAILY 12/28/22 [History Last Taken Unknown] lidocaine-prilocaine 2.5 %-2.5 % topical cream 1 applic topical ONCE PRN port access 30 days #30 grams 12/28/22 [Rx Last Taken Unknown] ondansetron 8 mg disintegrating tablet 8 mg PO Q8H PRN nausea and vomiting #30 tabs 12/28/22 [Rx Last Taken Unknown] Allergy/AdvReac Type Severity Reaction Status Date / Time Penicillins [PCN] Allergy Intermediate Swelling Verified 01/09/23 15:12 cheese Allergy Hives Verified 01/09/23 15:12 chocolate flavor Allergy Rash Verified 01/09/23 15:12 Family History Mother Hypertension Father Hypertension Surgical History History of appendectomy History of hysterectomy Social History household members: none Smoking Status: Former smoker alcohol intake: never substance use type: does not use ROS ROS ED Constitutional Constitutional ED: Denies chills, fever(s) or sweats Eyes Eyes: Denies change in vision ENT ENT ED: Denies dysphagia or sore throat Cardiovascular Cardiovascular: Denies chest pain, leg edema, palpitations or racing heartbeat Respiratory/Chest Respiratory/Chest: Denies cough, dyspnea or dyspnea on exertion Gastrointestinal Gastrointestinal: Denies abdominal pain, diarrhea, nausea or vomiting Genitourinary Genitourinary ED: Denies dysuria, hematuria or urinary frequency Musculoskeletal Musculoskeletal: Denies back pain, extremity pain or neck pain Integumentary Reports rash and wounds Neurologic Neurologic: Denies headache(s), paresthesias or weakness EXAM Physical Exam Const Vital Signs: 01/15/23 04:50 01/15/23 05:00 Temperature 98.2 F 98.2 F Temperature Source Oral Oral Pulse Rate 95 95 Respiratory Rate 16 16 Blood Pressure 157/83 H 147/91 H Blood Pressure Mean 107 109 Pulse Ox 93 92 Oxygen Delivery Method Room Air Room Air Positive well nourished and well developed General Appearance ED: well developed and NAD HEENT Reports moist mucous membranes normocephalic and atraumatic Eyes PERRL, EOMs intact bilaterally and conjunctivae normal General Eye ED: Yes normal appearance of both eyes Neck no lymphadenopathy and supple General: Negative for tenderness Chest Wall Chest: Negative for tenderness Resp normal respiratory effort and normal air movement Effort and Inspection: symmetric chest movement; Negative for respiratory distress Cardio regular rate, regular rhythm and no murmurs Peripheral Pulses: pulses 2+ throughout GI normal to inspection, nondistended, normoactive bowel sounds and non-tender Palpation: Negative for guarding or rebound tenderness present Back/Spine no CVA tenderness and no thoracic nor lumbar tenderness Extremity Extremity Narrative: Left upper extremity: Distal forearm couple puncture wounds 1 with small ulceration on the radial aspect. There is redness of the distal forearm that moves up to the proximal forearm on the volar aspect small streaking noted near the medial epicondyle. No streaking in the upper arm or tenderness. There is no crepitus. Ulcer express small amount of exudates with cultures collected. General Extremety ED: Yes edema and tenderness General Extremity: edema Neuro oriented x3 and no sensory deficits noted Sensorium / Orientation: awake and alert MDM MDM MDM Narrative Medical decision making narrative: Interventions / MDM: Differential diagnosis: Cellulitis, immunocompromise Diagnosis considered but do not suspect: N/A My EKG interpretation: N/A Imaging independently reviewed and interpreted by myself: Left forearm 2 views: No radiopaque foreign bodies, no soft tissue gas External documents reviewed: N/A Test considered but not ordered:N/A ED course: Patient vital stable however immunocompromised patient with cat bite cellulitis. Sepsis labs were ordered, left forearm x-ray, cultures from drainage was obtained. Penicillin allergy causing local hives. She started on Rocephin and Flagyl IV. Tetanus updated. Labs White count 2. Elevated serum P of 115. X-ray negative for any soft tissue gas or radiopaque foreign bodies. Wound culture, culture ending. 0605: I spoke with hospitalist Dr. Olea for admission. Re-evaluation: stable Disposition discussed with patient/family/significant other: Patient Case discussed with consulting clinician: Hospitalist This note was generated with [employer] dictation software. It may contain incorrect words, spelling, and punctuation that were not noted in checking the note before signing. Discharge Plan Dx/Rx/DC Orders Clinical Impression: Cat bite of left forearm with infection, Squamous cell carcinoma of lung, stage III, Cellulitis, Immunosuppressed status, Tetanus toxoid vaccination administered at current visit Disposition Disposition: Acute Care Hospital [facility] What to do if you have Problems For any increased pain, shortness of breath, bleeding, nausea or vomiting, chest pain, or any unexpected problems, contact your Primary Care Provider. Call [facility] ([phone]) or report to the closest Emergency Room. Call 911 if necessary. 01/15/2357 <Electronically signed by Conner Álvarez> Cosigner Signature (if applicable): CC: Dr. Leidy Beyer DO ~ Signed [facility] Work Phone: 1(185) 925-577508-14-2023 History and physical note Author Michelle Olea [facility] January 15, 2023 6:16am Note Date/Time January 15, 2023 6: 05am [facility] Medical Records Department [address] [place] [address] H&P Exam - Hospitalist 01/15/23 0604 MR#: [id number] Acct: [id number] Name: AMOL MCKEON Rep #:[id number] : 1950 72 From: Michelle Oela MD PCP: Dr. Leidy Beyer DO Status:REG ER Location: ED HPI - General General Date of Admission: 01/15/23 Date of Service: 01/15/23 Chief Complaint: L wrist/left forearm cat bite, worsening redness, drainage. HPI Narrative The patient is a 72 y/o F w/ PMHx: HTN, HLD, COPD w/ Chronic Hypoxic RespiratoryFailure, Former tobacco use, RLS, Anxiety, Hx TIA, Hx Graves disease s/p treatment with now Hypothyroidism, GERD w/ recent Oncology mention of esophagitis on PPI treatment, stage IIIB (cT3 cN2 M0) squamous cell carcinoma within the right lower lobe centrally with potentially separate tumor nodules within the same lobe following with Dr. Francisco currently undergoing chemotherapy and radiation with last noted 01/09/23 who presents to the [facility] ED on 01/15/23 with history of cat bite to the L wrist/forearm 2 days prior with worsening appearance with purulent discharge from the bite region as well as erythema with red streaking up the arm prompting eventual ED evaluation. The cat is her cat and is up-to-date on all vaccinations. She notes that recently her children had brought over a dog which has caused the cat to act up. Work-up in the ED included T98.2, heart rate 95, BP 147/91, respiratory rate 16, 92% on room air, CBC with WBC 6.2, human 13.5, platelet 189 with lymphopenia, unremarkable coags, CMP with T. bili 1.50, CRP 115, ESR pending upon requested evaluation of patient, plain film of the left forearm and hand pending upon request evaluation of patient, blood culture x2 pending per ED, wound culture pending per ED. In the ED patient administered IV Rocephin and IV Flagyl given penicillin allergy as well as a tetanus update. [facility] Medical History Cataract Chronic respiratory failure with hypoxia Essential hypertension Former smoker Graves disease HLD (hyperlipidemia) Hypothyroidism Loss of hearing Regional lymph node metastasis present Restless leg syndrome Squamous cell carcinoma of lung, stage III Stage 2 moderate COPD by GOLD classification TIA (transient ischemic attack) Wears dentures Home Medications clonazepam 1 mg tablet 2 mg PO QHS ANXIETY 12/28/20 [History Last Taken 11/05/22] cholecalciferol (vitamin D3) 10 mcg (400 unit) capsule (Vitamin D3) 10 mcg PO DAILY SUPPLEMENT 04/02/22 [History Last Taken 11/05/22] aspirin 81 mg tablet,delayed release 81 mg PO DAILY HEART HEALTH 11/06/22 [History Last Taken 11/05/22] calcium carbonate 500 mg-vitamin D3 3.125 mcg (125 unit) tablet 1 tab PO DAILY SUPPLEMENT 11/06/22 [History Last Taken 11/05/22] tiotropium 2.5 mcg-olodaterol 2.5 mcg/actuation mist for inhalation (Stiolto Respimat) 2 puff inhalation DAILY COPD #4 grams 11/29/22 [Rx Last Taken Unknown] benzonatate 200 mg capsule 200 mg PO TID #30 caps 12/28/22 [Rx Last Taken Unknown] levothyroxine 100 mcg tablet 100 mcg PO DAILY 12/28/22 [History Last Taken Unknown] lidocaine-prilocaine 2.5 %-2.5 % topical cream 1 applic topical ONCE PRN port access 30 days #30 grams 12/28/22 [Rx Last Taken Unknown] ondansetron 8 mg disintegrating tablet 8 mg PO Q8H PRN nausea and vomiting #30 tabs 12/28/22 [Rx Last Taken Unknown] Allergy/AdvReac Type Severity Reaction Status Date / Time Penicillins [PCN] Allergy Intermediate Swelling Verified 01/09/23 15:12 cheese Allergy Hives Verified 01/09/23 15:12 chocolate flavor Allergy Rash Verified 01/09/23 15:12 Family History Mother Hypertension Father Hypertension Surgical History History of appendectomy History of hysterectomy Social History household members: none Smoking Status: Former smoker alcohol intake: never substance use type: does not use ROS ROS Narrative Admission Review of Systems: CONSTITUTIONAL: No weight loss, fever, chills, + weakness or fatigue. HEENT: Eyes: No visual loss, blurred vision, double vision or yellow sclerae. Ears, Nose, Throat: No hearing loss, sneezing, congestion, runny nose or sore throat. SKIN: + LUE with cat bite, purulent drainage, erythema, red streaks. CARDIOVASCULAR: No chest pain, chest pressure or chest discomfort, palpitations, edema, orthopnea, syncopal events. RESPIRATORY: + chronic shortness of breath. No marked cough or sputum, wheezing, hemoptysis. GASTROINTESTINAL: No anorexia, nausea, vomiting or diarrhea, abdominal pain, melena, BRBPR. GENITOURINARY: No dysuria, frequency, urgency or retention. NEUROLOGICAL: No headache, dizziness, syncope, paralysis, ataxia, numbness or tingling in the extremities, focal weakness, change in bowel or bladder control, seizure. MUSCULOSKELETAL: + muscle, back pain, joint pain or stiffness. HEMATOLOGIC: No anemia, bleeding or bruising. LYMPHATICS: No enlarged nodes. No history of splenectomy. PSYCHIATRIC: + history of depression or anxiety. ENDOCRINOLOGIC: No reports of sweating, cold or heat intolerance. No polyuria or polydipsia. ALLERGIES: + history of hives. Vital Signs Vital Signs Vital Signs: 01/15/23 04:50 01/15/23 05:00 Temperature 98.2 F 98.2 F Temperature Source Oral Oral Pulse Rate 95 95 Respiratory Rate 16 16 Blood Pressure 157/83 H 147/91 H Blood Pressure Mean 107 109 Pulse Ox 93 92 Oxygen Delivery Method Room Air Room Air Weight Weight: 150 lb 2.157 oz Body Mass Index (BMI) 25.0 Physical Exam Narrative Physical Examination: General: Awake, alert, oriented x 3 and cooperative, seated upright in the ED bed in no apparent distress, initially talking on the phone. Skin: Normal color, normal turgor, no icterus, no cyanosis except for left upper extremity with cat bite with small open region on the left forearm near the wrist medially with some mild purulent drainage with erythema extending from there upward with mild increased edema and warmth to the region. HEENT: AT/NC, EOMI, PERRLA, mildly dry MM, no carotid bruits or JVD noted. Lungs: CTA bilaterally, moderate effort, mild decrease BL bases, no rales, ronchi or wheezing. Heart: Currently regular rate and rhythm; no gallop, rub audible. Abdomen: Soft, NTTP, ND, normal BS, no HSM. Extremities: No cyanosis, no clubbing, see skin. Neurological: Patient awake, alert, oriented as noted, cognitive function intact; pupils equally reactive to light and accommodation, cranial nerves grossly normal, moving all 4 extremities although limited left upper extremity movement secondary to pain elicited with acute presentation as noted, strength accordingly mildly to moderately globally decreased. Psychiatric: Affect appears normal, no acute evidence of depressive or anxiety feelings. Results Lab / Micro Data 01/15/23 05:17 01/15/23 05:17 Labs: Laboratory Results - last 24 hr 01/15/23 05:17: WBC 6.2, RBC 4.56, Hgb 13.5, Hct 41.3, MCV 90.6, MCH 29.6, MCHC 32.7, RDW Std Deviation 42.5, RDW Coeff of Ruthie 12.9, Plt Count 189, MPV 9.8, Immature Gran % (Auto) 0.800, Neut % (Auto) 83.4 H, Lymph % (Auto) 5.9 L, [place] % (Auto) 8.1, Eos % (Auto) 1.0, Baso % (Auto) 0.8, Absolute Neuts (auto) 5.1, Absolute Lymphs (auto) 0.36 L, Nucleated RBC % 0, PT 12.9, INR 1.0, APTT 31.4, Sodium 140, Potassium 3.6, Chloride 103, Carbon Dioxide 30.0, Anion Gap 7, BUN 13, Creatinine 0.83, Estim Creat Clear Calc 55.94, Est GFR (MDRD) Af Amer 87, Est GFR (MDRD) Non-Af 72, BUN/Creatinine Ratio 15.6, Glucose 101, Lactic Acid 0.8, Calcium 8.7, Total Bilirubin 1.50 H, AST 15, ALT 15, Alkaline Phosphatase 73, C-React Prot Ext Range 115.00 H, Total Protein 7.0, Albumin 3.2, Globulin 3.8, Albumin/Globulin Ratio 0.8 L Radiology Impression Forearm X-Ray 01/15/23 05:28 IMPRESSION: No acute osseous abnormality of the left forearm. 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 Francisco currently undergoing chemotherapy and radiation with last noted 01/09/23 who presents to the [facility] ED on 01/15/23 with history of cat bite to the L wrist/forearm 2 days prior with worsening appearance with purulent discharge from the bite region as well as erythema with red streaking up the arm prompting eventual ED evaluation. #1. Left Forearm/RADHA Extremity Cellulitis secondary to Infected cat bite: Will admit to medical surgical floor, maintain on IV Rocephin and IV Flagyl given allergies noted, will obtain Wound Cx, will obtain Wound MRSA PCR to be cautious although again initial etiology of cat bite is noted, plan repeat CBC in AM, continue affected extremity elevation above heart when seated and in bed, monitor erythema outline with VS checks, if worsening low threshold to obtain duplex US to assure no DVT concurrently, PRN pain regimen, PRN antiemetic regimen. #2. Stage IIIB (cT3 cN2 M0) squamous cell carcinoma within the right lower lobe: Following with Dr. Francisco and Dr. Fuchs, undergoing both chemotherapy and radiation, last radiation noted 01/09/23, mag and phos pending. #3. Chronic COPD with chronic hypoxic respiratory failure: Noted chart history of chronic hypoxic respiratory failure however most recent visit prior 01/09/2023 patient was noted to be 96% on room air, will temporally hold home inhalers and in the interim place on ATC budesonide therapy, PRN albuterol, HOB, IS parameters. #4. Hypothyroidism: Hx Graves disease s/p radioactive iodine treatment, will continue patient home levothyroxine regimen. #5. Anxiety: We will continue patient home clonazepam regimen. #6. Former tobacco use: Encourage continued tobacco cessation. #7. Hypertension: Noted in chart history, not on regimen, BP is elevated above goal but patient presenting acutely as noted #1, continue to monitor and add regimen if appropriate, as needed IV hydralazine in interim. #8. Hyperlipidemia: Noted in chart history, not on regimen, defer to outpatient. #9. History TIA: We will continue aspirin, not on statin therapy nor hypertensive regimen, continue to monitor and add if appropriate as noted. #10. GERD with history of esophagitis: Noted most recent oncology/rad oncology notes, will maintain on PPI with as needed Mylanta also. #11. DVT prophylaxis: Lovenox. Charges/Coding Visit Charges Inpatient E&M: 37619 Init Hosp L3 01/15/23 0616 <Electronically signed by Michelle Olea MD> Cosigner Signature (if applicable): CC: Dr. Michelle Olea MD; Dr. Leidy Beyer, DO~ Signed [facility] Work Phone: 1(577) 541-533908-08-2023 History and physical note Author Roberto Guidry [facility] January 09, 2023 7:34am Note Date/Time January 09, 2023 7:3 4am [facility] Medical Records Department [address] [place] [address] History & Physical Exam 01/09/2333 MR#: [id number] Acct: [id number] Name: AMOL MCKEON Rep #:[id number] : 1950 72 From: Roberto Anderson PCP: Dr. Leidy Beyer DO Status:[facility] Location: [place] [address] History and Physical Date of Admission: 01/09/23 Date of Service: 12/26/22 MR#: [id number] Acct: [id number] Name: AMOL MCKEON Rep #: [id number] : 1950 Provider: Dr. Roberto Guidry MD Age/Sex: 72/F Location: [facility] Status: Signed Intake Vital Signs 12/14/2313:32 12/19/2308:05 12/27/2307:51 Height 5 ft 5 in 5 ft 5 in 5 ft 5 in Weight: 150 lb 2 oz 149 lb 6 oz BMI 25.0 24.8 BP 189/94 H 163/92 H Blood Pressure Location Lt brachial Rt brachial Position Sitting Sitting Respiration 18 18 Pulse 63 62 Pulse Source Monitor Monitor Temp 97.4 F L 96.0 F L Temp Source Temporal Pulse Oximetry (%) 93 91 Oxygen Delivery Method room air room air Intake Visit Reasons: PORT PLACEMENT Chief Complaint: Port Placement Portal Architect Required: No Accompanied by: Daughter Is patient in pain?: No Allergies Penicillins [PCN] Allergy (Intermediate, Verified 12/26/22 08:53) Swellingcheese Allergy (Verified 12/26/22 08:53) Hiveschocolate flavor Allergy (Verified 12/26/22 08:53) Rash Medications clonazepam 1 mg tablet 2 mg PO QHS ANXIETY 12/28/20 [History Confirmed 12/26/22] levothyroxine 50 mcg tablet 50 mcg PO SANCHEZ THYROID 12/28/20 [History Confirmed 12/26/22] cholecalciferol (vitamin D3) 10 mcg (400 unit) capsule (Vitamin D3) 10 mcg PO DAILY SUPPLEMENT 04/02/22 [History Confirmed 12/26/22] aspirin 81 mg tablet,delayed release 81 mg PO DAILY HEART HEALTH 11/06/22 [History Confirmed 12/26/22] calcium carbonate 500 mg-vitamin D3 3.125 mcg (125 unit) tablet 1 tab PO DAILY SUPPLEMENT 11/06/22 [History Confirmed 12/26/22] levothyroxine 88 mcg tablet 88 mcg PO MOTUWETHFRSA THYROID 11/06/22 [History Confirmed 12/26/22] polyethylene glycol 400 1 % eye drops (Visine Dry Eye Relief) 1 drp EACH EYE DAILY PRN DRY EYE RELIEF 11/06/22 [History Confirmed 12/26/22] tiotropium 2.5 mcg-olodaterol 2.5 mcg/actuation mist for inhalation (Stiolto Respimat) 2 puff inhalation DAILY COPD #4 grams 11/29/22 [Rx Confirmed 12/26/22] PFSH Medical History Abnormal cardiac enzyme level Arrhythmia Atelectasis of right lung Cardiology follow-up encounter Cataract Chronic respiratory failure with hypoxia Essential hypertension Former smoker Graves disease History of echocardiogram History of stress test HLD (hyperlipidemia) Hyperthyroidism Hypothyroidism Loss of hearing Regional lymph node metastasis present Restless leg syndrome Squamous cell carcinoma of lung, 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 Patient was diagnosed with stage III squamous cell cancer of the lung on 11/10/2022 after bronchoscopy washings were performed by Dr. Larose. They have met with oncology and radiation oncology and plans are to begin chemotherapy either the end of this month or very beginning of next. Patient has no prior history of central line placement. Patient has no pacemaker or intracardiac defibrillator (she does have a history of being told she has atrial fibrillation, but states she was acutely ill and this diagnosis was made and does not believe she persists in this arrhythmia). Patient has no renal dysfunction and are not on hemodialysis. Patient has no history of prior skin infection?and specifically denies any infections from staph or MRSA. Ms. Mckeon is not currently prescribed blood thinners. Patient does have a history of Graves' disease status post radioactive iodine ablation. She is currently prescribed levothyroxine for subsequent hypothyroidism. Her latest TSH available to me from July 2022 is 18. ROS General General: Yes weight change, fatigue and breast cancer; No appetite, colon cancer or weakness HEENT HEENT: Yes eye surgery; No difficulty swallowing, eye injury, swollen glands or hoarseness Endo Endocrine: Yes thyroid disease; No diabetes mellitus, thyroid cancer, Hair loss, heat intolerance or cold intolerance Skin Skin: No rash or changing moles Breast Breast: No left breast lump, right breast lump, nipple discharge, breast pain, abnormal mammogram, abnormal US or breast enlargement Musc Musculoskeletal: No back problems, arthritis, rheumatoid arthritis, gout or joint pain Cardio Cardiovascular: Yes atrial fibrillation; No murmur, pacemaker, heart disease, high blood pressure, heart attack, heart stent, palpitations, shortness of breat with exertion or chest pain Psych Psychiatric: No depression, anxiety or hearing voices Resp Respiratory: No shortness of breath, No sleep apnea, Yes cough, Yes COPD, No asthma, No emphysema and No wheezing Gastro Gastrointestinal: Yes abdominal pain, No nausea or vomiting, No diarrhea, No constipation, No blood in stool, No acid reflux, No hemorrhoids, No ulcers, No gallbladder problem and No black,tarry stools Brady Hematologic: No blood thinners, No blood disorders, No bleeding, No anemia and No blood clots Additional Details: Baby aspirin daily Neuro Neurologic: No system reviewed and no additional complaints, except as documented, No as per HPI, No abnormal gait, No abnormal hearing, No abnormal movements, No abnormal speech, No behavioral changes, No burning sensations, No confusion, No convulsions, No disequilibrium, No dizziness, No localized weakness, No frequent falls, No headache(s), No lack of coordination, No loss ofvision, No memory loss, Yes numbness, No other visual disturbances, No radicularpain, No restless legs, No sensory deficit, No syncope, Yes tingling, No tremor(s), No weakness and No other Exam Const General: cooperative, no acute distress and anxious Other: Exhibits some pressured speech and/or anxiety Chest Chest palpation & inspection: normal inspection of the chest (No scars, no rashes, no infections) Resp Effort & Inspection: normal respiratory effort Auscultation: no rales, no rhonchi and no wheezes Cardio Rate: regular rate Rhythm: regular rhythm Assessment and Plan Assessment and Plan (1) Regional lymph node metastasis present: Status: Acute (2) Primary cancer of right upper lobe of lung: Status: Acute (3) Squamous cell carcinoma of lung, stage III: Status: Acute Qualifiers: Laterality: right Qualified Code(s): C34.91 - Malignant neoplasm of unspecified part of right bronchus or lung Comment: Squamous cell carcinoma of the right bronchus intermedius (lung), pre-op/pre-staging 3B, awaiting definitive staging with PET and bone scan. Immunohistochemistry was positive for CK5/6, p40, CK8, and AE1?3. ECOG functional status 0. See path reports and immunohistochemistry for further details. Plan This is a 72-year-old female with diagnosis of right-sided stage III squamous cell lung cancer who presents for port placement. She is tentatively due to start chemotherapy within the next 1 week. I find no contraindication for port placement and have provided her with an education regarding the risk of indwelling central venous access. She has been advised to insist upon sterile technique when accessing this port and access and only for her cancer treatments. After discussion of the procedure, neither she nor her daughter have any further questions. We will look to get her on the schedule first available with MAC sedation. I would also like to obtain updated thyroid functions given her history of Graves' and reported wide swings in her thyroid function. I have examined the patient and the H&P has been reviewed. There are no clinicalchanges since date of exam. Patient reports that she started chemotherapy last week and is due to continue with another infusion today. She denies any development of rashes or infections in the interval since our visit. Neither she nor her daughter have any further questions regarding the procedure, however, post procedure expectations were reviewed in brief. Proceed to the operating room for port placement as discussed above. 01/09/23 0734 <Electronically signed by Roberto Guidry MD> Cosigner Signature (if applicable): CC: Dr. Leidy Beyer DO; Dr. Roberto Guidry MD~ Signed [facility] Work Phone: 1(781) 716-496106-22-2023 Procedure [facility] 11-06-[address] Larose [facility] November 06, 2022 7:19pm Note Date/Time November 06, 2022 3:48p m [facility] Medical Records Department [address] [place] [address] Consultation - [employer]umper 11/06/22 1527 MR#: [id number] Acct: [id number] Name: AMOL MCKEON Rep #:[id number] : 1950 72 From: Kurt Larose MD PCP: Dr. Leidy Beyer DO Status:ADM IN Location: [facility] RB728-3 Assessment & Plan Assessment/Plan (1) Right lower lobe lung mass: PLAN: Complete prebronchoscopy labs, are acceptable. Proceed to diagnostic bronchoscopy with transthoracic needle aspiration of the stage VII precarinal node. We will schedule at the earliest available inpatient bronchoscopy. The patient has not used aspirin for more than a week, and has not used ibuprofen inweeks according to her current recollection. - Further studies and diagnostic procedures will be dependent on initial results. - We will consult oncology when initial results are available. - The primary tumor looks too extensive and extends to distally to consider bronchoscopic resection at this time with conventional equipment. (2) Mass of upper lobe of right lung: PLAN: This is likely an ipsilateral metastasis, less likely a second primary. Further evaluation will be determined by initial work-up of the primary tumor inthe right lower lobe. (3) Chronic respiratory failure with hypoxia: PLAN: Likely multifactorial, including undiagnosed COPD in a [id number] formersmoker, and hypoxemia due to right lower lobe atelectasis related to what is most likely a right hilar bronchogenic carcinoma invading the mediastinum and with an ipsilateral posterior right upper lobe metastasis. - Supplemental O2, titrated to keep SPO2 greater than 92% - Empiric DuoNeb 4 times daily. -Solu-Medrol x2 doses - Outpatient complete pulmonary function testing while on inhalers to assess her optimal pulmonary function. - Maintain smoking cessation (4) Hypothyroidism: QUALIFIERS: Hypothyroidism type: unspecified Qualified Code(s): E03.9 - Hypothyroidism, unspecified PLAN: Management per primary team. In retrospect, the patient's weakness may have been a paraneoplastic manifestation. (5) HLD (hyperlipidemia): QUALIFIERS: Hyperlipidemia type: unspecified Qualified Code(s): E78.5 - Hyperlipidemia, unspecified PLAN: Management per primary team (6) Anxiety: PLAN: Management per primary team (7) Hemoptysis: PLAN: - Sputum C&S - agree with empiric antibiotics and steroids to decrease irritation and infection at the site of bronchial compromise. The patient has already had someclinical improvement. (8) Atelectasis of right lung: PLAN: Due to the extensive nature of the right mainstem bronchus lesion, it is unlikely to be amenable to either laser, stenting; further management will be dependent on the staging evaluation to see if this patient is a surgical candidate, and/or chemoimmunotherapy and/or radiation therapy, which be expectedto help the airway occlusion over time. - will defer to oncology (9) Essential hypertension: PLAN: - Recommend controlling BP to near normal prior to bronchoscopy, to decrease the risk of hemorrhage with biopsies. PLAN: Plan As above Thank you for consulting [facility] on this pleasant patient. - I have Completed the informed consent process for bronchoscopy during today'svisit, and the patient would like to proceed. - We will be happy to follow her with you, both as an inpatient and outpatient. HPI Consult Data Date of Consult: 11/06/22 HPI Narrative Reason for Consultation: Right lower lobe, right upper lobe masses w/RLL postobstructive pneumonia HPI Narrative: AMOL MCKEON, is a 72 F smoker who presents with several weeks of cough and increasing hemoptysis. Today she coughed up 3 dime size clots of blood, which is more than she is ever raised before. Her primary ordered a CT scan of the chest for further evaluation, which showed a right lower lobe > 3 cm mass which impinged on the mediastinum, narrows the right lower lobe pulmonary artery, has associated mediastinal and hilar adenopathy, and an endobronchial lesion occluding the right lower lobe bronchus at the orifice. There was a second lesion of approximately 1 cm in the posterior right upper lobe abutting the pleura, likely metastasis or second primary. There is right lower lobe atelectasis. She is admitted for treatment of RLL pneumonia/postobstructive atelectasis, hemoptysis, acute on chronic bronchitis, undiagnosed COPD exacerbation, chronic respiratory failure with hypoxemia on ABG, and diagnosis of her right lower lobe mass. She stated that last night was the worst night for her because she could not lieon her right side because of dyspnea and crackling. She was started on albuterol and antibiotics last Sunday at urgent care. Because of coughing up blood she saw Dr. Foster who ordered a CT scan of her chest. She has not taken aspirin since last Sunday when she started antibiotics. She has not taken ibuprofen for weeks to her recollection, with her daughter presenthelping remember her medication history. In the ER, I recommended she be started on IV antibiotics and bronchodilators, with improvement in her cough since admission. Past pulmonary history: She had pneumonia as an , but no history of asthmapulmonary embolism, deep venous thrombosis, tuberculosis exposure or illness, pneumothorax. Denies previous rib fractures does not think she ever had COVID or influenza. She has been very healthy throughout her life. She is immunized fully for COVID, pneumococcus, usually gets influenza vaccination but not last year. 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 She lives alone with her cat has no environmentalallergies sinus infections or dental problems. No history of cancer. Past medical history: Hyperlipidemia, hypertension, restless legs, Graves' disease, hypothyroidism, anxiety, arrhythmia E. coli UTI 04/04/2022, hospitalized with sepsis, lactic acidosis, INR 1.5, hyperbilirubinemia, MALENA and UA positive for bacteria and white cells.? April 2022 during that hospital admission she was noted to also have bilateral lower extremity weakness, fell at home, worked up with MRI showing increased T2 signal, elevated TSH of 11.5, started on Synthroid.? Brain CT 04/02/2022 no acute intracranial pathology with chronic involution of white matter.? Cardiac evaluation for elevated troponin December 2020 was negative for acute stroke, negative nuclear stress test and normal 2D echo with EF 65%. Past surgical history: Appendectomy, hysterectomy, tonsillectomy (age 20). Social history: , has a son and a daughter, smoked 1 and half to 2 packs/day for 47 years (20-[id number]-[id number] smoker) quit in 2015. 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 Her daughter lives nearby, and was present during today's visit.. [facility] Medical History (Updated 11/06/22 @ 15:[address] Kurt Larose MD) Abnormal cardiac enzyme level Arrhythmia Atelectasis of right lung Chronic respiratory failure with hypoxia Essential hypertension Former smoker Graves disease HLD (hyperlipidemia) Hyperthyroidism Hypothyroidism Mass of upper lobe of right lung Restless leg syndrome Right lower lobe lung mass TIA (transient ischemic attack) UTI (urinary tract infection) Home Medications clonazepam 1 mg tablet 2 mg PO QHS ANXIETY 12/28/20 [History Last Taken 11/05/22] levothyroxine 50 mcg tablet 50 mcg PO SANCHEZ THYROID 12/28/20 [History Last Taken 11/05/22] cholecalciferol (vitamin D3) 10 mcg (400 unit) capsule (Vitamin D3) 10 mcg PO DAILY SUPPLEMENT 04/02/22 [History Last Taken 11/05/22] albuterol sulfate 90 mcg/actuation aerosol inhaler 2 inh inhalation Q6H PRN SHORTNESS OF BREATH 11/06/22 [History Last Taken 11/05/22] aspirin 81 mg tablet,delayed release 81 mg PO DAILY HEART HEALTH 11/06/22 [History Last Taken 11/05/22] benzonatate 100 mg capsule 100 mg PO Q8H PRN COUGH 11/06/22 [History Last Taken Unknown] calcium carbonate 500 mg-vitamin D3 3.125 mcg (125 unit) tablet 1 tab PO DAILY SUPPLEMENT 11/06/22 [History Last Taken 11/05/22] doxycycline hyclate 100 mg tablet 100 mg PO BID ANTIBIOTIC 11/06/22 [History Last Taken 11/06/22] levothyroxine 88 mcg tablet 88 mcg PO MOTUWETHFRSA THYROID 11/06/22 [History Last Taken 11/06/22] polyethylene glycol 400 1 % eye drops (Visine Dry Eye Relief) 1 drp EACH EYE DAILY PRN DRY EYE RELIEF 11/06/22 [History Last Taken 2 Days Ago ~11/04/22] Allergy/AdvReac Type Severity Reaction Status Date / Time Penicillins [PCN] Allergy Intermediate Swelling Verified 11/06/22 14:36 cheese Allergy Hives Verified 11/06/22 12:58 chocolate flavor Allergy Rash Verified 11/06/22 12:58 Family History (Updated 11/06/22 @ 14:[address] Oskar Huntley MD) Other Hypertension Surgical History History of appendectomy History of hysterectomy Social History Smoking Status: Former smoker ROS ROS Narrative 10 pound weight loss in the last month because of decreased appetite. Otherwise a 12 system review was negative except for diarrhea last weekend which has resolved. Physical Exam Narrative Well-developed slender woman with BMI of 24.1, no acute distress. She coughed only when she did forced vital capacity maneuver for lung exam x1. Articulate, good memory, good historian. HEENT: Normocephalic atraumatic extraoculars are intact pupils are equal mucous membranes are moist, no oral lesions neck is supple with no JVD thyromegaly mass or bruit. Lungs are hyperinflated but clear except for diminished breath sounds at the right lung base. No wheezes rales or rhonchi including forced vital capacity maneuver, cough was nonproductive. Heart distant S1-S2 with no murmurs rubs or gallops, regular Abdomen is soft, nontender, no organomegaly. I did not feel nodularity of the liver, no mass. Positive bowel sounds. Extremities have no clubbing cyanosis or edema Skin is warm and dry without lesions or bleeding Medical Records Data Attestation: I reviewed the patient's medical records Lab / Micro Data Attestation: I reviewed the patient's lab results. Result Diagrams: 11/06/22 13:50 11/06/22 13:50 Labs: Laboratory Results - last 24 hr 11/06/22 13:50: WBC 5.9, RBC 4.90, Hgb 14.7, Hct 43.7, MCV 89.2, MCH 30.0, MCHC 33.6, RDW Std Deviation 39.7, RDW Coeff of Ruthie 12.1, Plt Count 273, MPV 9.8, Immature Gran % (Auto) 0.200, Neut % (Auto) 54.9, Lymph % (Auto) 31.9, [place] % (Auto) 9.9, Eos % (Auto) 1.9, Baso % (Auto) 1.2 H, Absolute Neuts (auto) 3.3, Absolute Lymphs (auto) 1.89, Nucleated RBC % 0 11/06/22 13:50: Sodium 135 L, Potassium 3.7, Chloride 106, Carbon Dioxide 27.0, Anion Gap 2 L, BUN 18, Creatinine 0.77, Estim Creat Clear Calc 46.43, Est GFR (MDRD) Af Amer 95, Est GFR (MDRD) Non-Af 78, BUN/Creatinine Ratio 23.3 H, Glucose 88, Calcium 9.1, Total Bilirubin 0.90, AST 22, ALT 10 L, Alkaline Phosphatase 83, Total Protein 7.6, Albumin 3.7, Globulin 3.9, Albumin/Globulin Ratio 0.9 11/06/22 13:50: PT 12.9, INR 1.0, APTT 31.6 ABG Data ABG results: ABG 11/06/22 14:08 Specimen Type ART Sample Site R Radial pH 7.43 Bicarbonate Actual 25.7 Total CO2 27 Base Excess 1 O2 Saturation 90 L ABG pCO2 38.5 ABG pO2 56 L Gl Test Positive O2 Delivery Device Room Air She will be started on 2 L of supplemental oxygen. Interpretation: Normal acid-base status, with significant hypoxia on room air. Charges/Coding Visit Charges Office Visits / Consults: 43532 IP Consult L5 11/06/221918 <Electronically signed by Kurt Larose MD> Cosigner Signature (if applicable): CC: SHAHLA Marin; Dr. Miguel Ángel Wells MD; Dr. Bobby Arciniega DO; Dr. Kurt Larose MD; Dr. Leidy Beyer DO; Dr. Bridger Richard MD~ Signed [facility] Work Phone: [phone] History and physical note Author Dr. Huntley [facility] November 06, 2022 5:32pm Note Date/Time November 06, 2022 2:04p m [facility] Medical Records Department [address] [place] [address] H&P Exam - Hospitalist 11/06/22 1402 MR#: [id number] Acct: [id number] Name: AMOL MCKEON Rep #:[id number] : 1950 72 From: Oskar thomson MD PCP: Dr. Leidy Beyer, DO Status:ADM IN Location: [facility] CF417-1 HPI - General General Date of Admission: 11/06/22 HPI Narrative AMOL MCKEON, is a 72 F who presents to the hospital with hemoptysis secondaryto a right hilar lung mass. She had a CT scan done by her PCP on 11/02/2022 and was told to come to the ER for further evaluation. Initial when she had her CT scan she was feeling okay but over the weekend she started coming little bit more short of breath specifically with ambulation and then this morning she developed hemoptysis. Review of the CT scan shows a right lower lobe collapse from a hilar mass. Initial ER lab work is still pending, blood pressure is elevated because of her anxiety given her current situation. Of note she did have a chest x-ray about a year ago with no evidence of this mass. [facility] Medical History (Updated 11/06/22 @ 15:[address] Kurt Larose MD) Abnormal cardiac enzyme level Arrhythmia Atelectasis of right lung Chronic respiratory failure with hypoxia Essential hypertension Former smoker Graves disease HLD (hyperlipidemia) Hyperthyroidism Hypothyroidism Mass of upper lobe of right lung Restless leg syndrome Right lower lobe lung mass TIA (transient ischemic attack) UTI (urinary tract infection) Home Medications clonazepam 1 mg tablet 2 mg PO QHS ANXIETY 12/28/20 [History Last Taken 11/05/22] levothyroxine 50 mcg tablet 50 mcg PO SANCHEZ THYROID 12/28/20 [History Last Taken 11/05/22] cholecalciferol (vitamin D3) 10 mcg (400 unit) capsule (Vitamin D3) 10 mcg PO DAILY SUPPLEMENT 04/02/22 [History Last Taken 11/05/22] albuterol sulfate 90 mcg/actuation aerosol inhaler 2 inh inhalation Q6H PRN SHORTNESS OF BREATH 11/06/22 [History Last Taken 11/05/22] aspirin 81 mg tablet,delayed release 81 mg PO DAILY HEART HEALTH 11/06/22 [History Last Taken 11/05/22] benzonatate 100 mg capsule 100 mg PO Q8H PRN COUGH 11/06/22 [History Last Taken Unknown] calcium carbonate 500 mg-vitamin D3 3.125 mcg (125 unit) tablet 1 tab PO DAILY SUPPLEMENT 11/06/22 [History Last Taken 11/05/22] doxycycline hyclate 100 mg tablet 100 mg PO BID ANTIBIOTIC 11/06/22 [History Last Taken 11/06/22] levothyroxine 88 mcg tablet 88 mcg PO MOTUWETHFRSA THYROID 11/06/22 [History Last Taken 11/06/22] polyethylene glycol 400 1 % eye drops (Visine Dry Eye Relief) 1 drp EACH EYE DAILY PRN DRY EYE RELIEF 11/06/22 [History Last Taken 2 Days Ago ~11/04/22] Allergy/AdvReac Type Severity Reaction Status Date / Time Penicillins [PCN] Allergy Intermediate Swelling Verified 11/06/22 14:36 cheese Allergy Hives Verified 11/06/22 12:58 chocolate flavor Allergy Rash Verified 11/06/22 12:58 Family History (Updated 11/06/22 @ 14:[address] Oskar Huntley MD) Other Hypertension Surgical History History of appendectomy History of hysterectomy Social History Smoking Status: Former smoker ROS Constitutional Constitutional: Denies chills, fatigue, fever(s) or malaise Eyes Eyes: Denies blurry vision ENT HEENT: Denies headache(s) or nasal discharge Cardiovascular Cardiovascular: Denies chest pain, dyspnea on exertion or syncope Respiratory/Chest Respiratory/Chest: Reports cough, hemoptysis, shortness of breath at rest and shortness of breath with exertion Gastrointestinal Gastrointestinal: Denies constipation, diarrhea, nausea or vomiting Genitourinary Genitourinary: Denies dysuria Neurologic Neurologic: Denies focal weakness, numbness or tremor(s) Psychiatric Psychiatric: Denies anxiety or depression Vital Signs Vital Signs Vital Signs: 11/06/22 12:56 Temperature 96 F L Temperature Source Temporal Pulse Rate 80 Respiratory Rate 16 Blood Pressure 212/103 H Blood Pressure Mean 139 Pulse Ox 98 Oxygen Delivery Method Room Air Weight Weight: 149 lb 9.6 oz Body Mass Index (BMI) 24.9 Physical Exam Narrative General: Alert, Oriented x3, Cooperative, No apparent distress HEENT: Atraumatic, PERRLA, EOMI, Normocephalic Oral: Moist Mucosa Neck: Supple, No JVD Lungs: Diminished with absent breath sounds in the right lower lobe, Normal air movement, No rhonchi, No wheeze, No rales Cardiovascular: Regular rate, Regular Rhythm, Normal S1, Normal S2, No murmurs Abdomen: Soft, Non Tender, Non-Distended, No Hepato-splenomegaly Extremities: No edema, Capillary Refill Less than 3 Seconds Skin: No rashes, No breakdown Musculoskeletal: No Tenderness to Palpation of Joints or Extremities Neurological: Cranial nerves II-XII grossly intact, Motor Exam 5/5 strength throughout, Sensory exam intact to light touch and pain Psych/Mental Status: Normal Affect, Appropriate Results Lab / Micro Data Result Diagrams: 11/06/22 13:50 11/06/22 13:50 Assessment & Plan Assessment/Plan (1) Hemoptysis: (2) Lung mass: PLAN: Plan 1. Hemoptysis secondary to right lower lobe collapse from the hilar lung mass with possible postobstructive pneumonia/possible COPD ? We will try to obtain a sputum culture, but will continue with antibiotics for another 24 to 48 hours ? We will consult pulmonology for possible bronchoscopy and biopsy ? She quit smoking in 2015 ? PT/INR is normal ? We will make n.p.o. after midnight ? Continue with her inhalers at this time she does not appear to be in exacerbation, would recommend outpatient follow-up with pulmonology for PFTs and treatment 2. Hypothyroidism ? Stable ? Continue with her home Synthroid 3. Anxiety ? Stable ? Continue with her home medications DVT: SCDs pending procedure 76 minutes was spent on direct patient care as well as chart review and collaboration with colleagues Charges/Coding Visit Charges Inpatient E&M: 93593 Init Hosp L3 11/06/22 3442 <Electronically signed by Oskar Huntley MD> Cosigner Signature (if applicable): CC: Dr. Leidy Beyer DO; Dr. Oskar Huntley MD~ Signed [facility] Work Phone: [phone]) [phone] Grace [facility] November 06, 2022 2:03pm Note Date/Time November 06, 2022 1:35p [facility] Medical Records Department [address] [place] [address] Emergency Department Summary 11/06/22 MR#: [id number] Acct: [id number] Name: AMOL MCKEON Rep #:[id number] : 1950 72 From: Raffi Grace MD PCP: Dr. Leidy Beyer, DO Status:REG ER Location: ED HPI History of Present Illness Chief Complaint: Shortness of Breath Narrative Narrative: Presents with hemoptysis, dyspnea, for few weeks, she saw PCP and had a CT whichshowed large mass in her right lung region. She was sent to the ED. She has nofever or chills. No recent weight loss. She did smoke, until 2005. [facility] Medical History Abnormal cardiac enzyme level Arrhythmia Former smoker Graves disease HLD (hyperlipidemia) Hypothyroidism Restless leg syndrome Home Medications clonazepam 1 mg tablet 2 mg PO QHS ANXIETY 12/28/20 [History Last Taken 12/27/20] levothyroxine 50 mcg tablet 50 mcg PO SANCHEZ THYROID 12/28/20 [History Last Taken 12/26/20] aspirin 81 mg tablet,delayed release 81 mg PO DAILY #90 tabs 12/29/20 [Rx Last Taken Unknown] tramadol 50 mg tablet 50 mg PO Q6H PRN pain 3 days #12 tabs 03/14/21 [Rx Last Taken Unknown] cholecalciferol (vitamin D3) 10 mcg (400 unit) capsule (Vitamin D3) 20 mcg PO DAILY 04/02/22 [History Last Taken Unknown] cefadroxil 500 mg capsule 500 mg PO BID #12 caps 04/04/22 [Rx Last Taken Unknown] levothyroxine 100 mcg tablet 100 mcg PO MoTuWeThFrSa@0600 #30 tabs 04/04/22 [Rx Last Taken Unknown] Allergy/AdvReac Type Severity Reaction Status Date / Time cheese Allergy Hives Verified 11/06/22 12:58 chocolate flavor Allergy Rash Verified 11/06/22 12:58 Penicillins [PCN] Allergy Swelling Verified 11/06/22 12:58 Family History no significant family his Surgical History History of appendectomy History of hysterectomy Social History Smoking Status: Former smoker ROS ROS ED ROS Narrative Past medical history: Reviewed Medications: Reviewed Social history: Noncontributory Review of systems: All systems negative except as indicated General: No fever. Generalized weakness Eyes: No visual changes ENT: No upper airway congestion, normal voice Neck: No neck pain Cardiovascular: No chest pain Respiratory: As in HPI Gastrointestinal: No abdominal pain, nausea vomiting or diarrhea Genitourinary: No dysuria Musculoskeletal: Denies myalgias no difficulty with ambulation Skin: No rash Neurological: No memory loss, confusion or any focal weakness Psych: No recent behavioral changes Hematologic: No easy bleeding or easy bruising EXAM Physical Exam Narrative Exam Narrative: Physical exam General: Patient appears quite anxious but she appears comfortable. Head: Normocephalic, Atraumatic Eyes: Conjunctiva not pale ENT: Moist mucous membranes Neck: Supple, Nontender, No lymphadenopathy Cardiovascular: Regular rate, Regular rhythm Respiratory: Diminished right-sided breath sounds, however no significant respiratory distress she is speaking in full sentences. Abdomen: Soft, Nontender, Nondistended Back: Nontender, Normal Inspection. Negative for: CVA tenderness Extremities: Nontender, No edema Const Vital Signs: 11/06/22 12:56 Temperature 96 F L Temperature Source Temporal Pulse Rate 80 Respiratory Rate 16 Blood Pressure 212/103 H Blood Pressure Mean 139 Pulse Ox 98 Oxygen Delivery Method Room Air MDM MDM MDM Narrative Medical decision making narrative: Patient has a large lung mass, she has significant hemoptysis and feels weak and short of breath. Antibiotics and steroids were ordered per Dr. Larose from pulmonology. I did not think there is a need of x-ray since patient just had a CT. Recommendation is for admission. CBC CMP and coags were ordered for prebronch order set as well as an EKG. She is hypertensive but she is quite upset. We will monitor the blood pressure. Lab Data Labs: Laboratory Results - last 24 hr 11/06/22 13:50 WBC 5.9 RBC 4.90 Hgb 14.7 Hct 43.7 MCV 89.2 MCH 30.0 MCHC 33.6 RDW Std Deviation 39.7 RDW Coeff of Ruthie 12.1 Plt Count 273 MPV 9.8 Immature Gran % (Auto) 0.200 Neut % (Auto) 54.9 Lymph % (Auto) 31.9 [place] % (Auto) 9.9 Eos % (Auto) 1.9 Baso % (Auto) 1.2 H Absolute Neuts (auto) 3.3 Absolute Lymphs (auto) 1.89 Nucleated RBC % 0 Discharge Plan Triage Chief Complaint: Shortness of Breath ED Provider: Raffi Grace Dx/Rx/DC Orders Clinical Impression: Hemoptysis, Lung mass, Anxiety Prescriptions: No Action clonazepam 1 mg tablet 2 mg PO QHS levothyroxine 50 mcg tablet 50 mcg PO SANCHEZ aspirin 81 mg tablet,delayed release (DR/EC) 81 mg PO DAILY Qty: 90 0RF tramadol 50 mg tablet 50 mg PO Q6H PRN (Reason: pain) 3 Days Qty: 12 0RF cholecalciferol (vitamin D3) [Vitamin D3] 10 mcg (400 unit) capsule 20 mcg PO DAILY Label Comments: 1 capsule by mouth as directed cefadroxil 500 mg capsule 500 mg PO BID Qty: 12 0RF levothyroxine 100 mcg Tablet 100 mcg PO MoTuWeThFrSa@0600 Qty: 30 0RF Primary Care Provider: Leidy Beyer Referrals: Leidy Beyer DO [Primary Care Provider] - What to do if you have Problems For any increased pain, shortness of breath, bleeding, nausea or vomiting, chestpain, or any unexpected problems, contact your Primary Care Provider. Call [facility] ([phone]) or report to the closest Emergency Room. Call 911 if necessary. 11/06/22 1403 <Electronically signed by Raffi Grace MD> Cosigner Signature (if applicable): CC: Dr. Leidy Beyer DO ~ Signed [facility] Work Phone: [phone] 391-137706-05-[address] Grace [facility] November 06, 2022 2:03pm Note Date/Time November 06, 2022 1:35p m [facility] Medical Records Department [address] [place] [address] Emergency Department Summary 11/06/22 MR#: [id number] Acct: [id number] Name: AMOL MCKEON Rep #:[id number] : 1950 72 From: Raffi Grace MD PCP: Dr. Leidy Beyer, DO Status:REG ER Location: ED HPI History of Present Illness Chief Complaint: Shortness of Breath Narrative Narrative: Presents with hemoptysis, dyspnea, for few weeks, she saw PCP and had a CT whichshowed large mass in her right lung region. She was sent to the ED. She has nofever or chills. No recent weight loss. She did smoke, until 2005. PFSH PFSH Medical History Abnormal cardiac enzyme level Arrhythmia Former smoker Graves disease HLD (hyperlipidemia) Hypothyroidism Restless leg syndrome Home Medications clonazepam 1 mg tablet 2 mg PO QHS ANXIETY 12/28/20 [History Last Taken 12/27/20] levothyroxine 50 mcg tablet 50 mcg PO SANCHEZ THYROID 12/28/20 [History Last Taken 12/26/20] aspirin 81 mg tablet,delayed release 81 mg PO DAILY #90 tabs 12/29/20 [Rx Last Taken Unknown] tramadol 50 mg tablet 50 mg PO Q6H PRN pain 3 days #12 tabs 03/14/21 [Rx Last Taken Unknown] cholecalciferol (vitamin D3) 10 mcg (400 unit) capsule (Vitamin D3) 20 mcg PO DAILY 04/02/22 [History Last Taken Unknown] cefadroxil 500 mg capsule 500 mg PO BID #12 caps 04/04/22 [Rx Last Taken Unknown] levothyroxine 100 mcg tablet 100 mcg PO MoTuWeThFrSa@0600 #30 tabs 04/04/22 [Rx Last Taken Unknown] Allergy/AdvReac Type Severity Reaction Status Date / Time cheese Allergy Hives Verified 11/06/22 12:58 chocolate flavor Allergy Rash Verified 11/06/22 12:58 Penicillins [PCN] Allergy Swelling Verified 11/06/22 12:58 Family History no significant family his Surgical History History of appendectomy History of hysterectomy Social History Smoking Status: Former smoker ROS ROS ED ROS Narrative Past medical history: Reviewed Medications: Reviewed Social history: Noncontributory Review of systems: All systems negative except as indicated General: No fever. Generalized weakness Eyes: No visual changes ENT: No upper airway congestion, normal voice Neck: No neck pain Cardiovascular: No chest pain Respiratory: As in HPI Gastrointestinal: No abdominal pain, nausea vomiting or diarrhea Genitourinary: No dysuria Musculoskeletal: Denies myalgias no difficulty with ambulation Skin: No rash Neurological: No memory loss, confusion or any focal weakness Psych: No recent behavioral changes Hematologic: No easy bleeding or easy bruising EXAM Physical Exam Narrative Exam Narrative: Physical exam General: Patient appears quite anxious but she appears comfortable. Head: Normocephalic, Atraumatic Eyes: Conjunctiva not pale ENT: Moist mucous membranes Neck: Supple, Nontender, No lymphadenopathy Cardiovascular: Regular rate, Regular rhythm Respiratory: Diminished right-sided breath sounds, however no significant respiratory distress she is speaking in full sentences. Abdomen: Soft, Nontender, Nondistended Back: Nontender, Normal Inspection. Negative for: CVA tenderness Extremities: Nontender, No edema Const Vital Signs: 11/06/22 12:56 Temperature 96 F L Temperature Source Temporal Pulse Rate 80 Respiratory Rate 16 Blood Pressure 212/103 H Blood Pressure Mean 139 Pulse Ox 98 Oxygen Delivery Method Room Air MDM MDM MDM Narrative Medical decision making narrative: Patient has a large lung mass, she has significant hemoptysis and feels weak and short of breath. Antibiotics and steroids were ordered per Dr. Larose from pulmonology. I did not think there is a need of x-ray since patient just had a CT. Recommendation is for admission. CBC CMP and coags were ordered for prebronch order set as well as an EKG. She is hypertensive but she is quite upset. We will monitor the blood pressure. Lab Data Labs: Laboratory Results - last 24 hr 11/06/22 13:50 WBC 5.9 RBC 4.90 Hgb 14.7 Hct 43.7 MCV 89.2 MCH 30.0 MCHC 33.6 RDW Std Deviation 39.7 RDW Coeff of Ruthie 12.1 Plt Count 273 MPV 9.8 Immature Gran % (Auto) 0.200 Neut % (Auto) 54.9 Lymph % (Auto) 31.9 [place] % (Auto) 9.9 Eos % (Auto) 1.9 Baso % (Auto) 1.2 H Absolute Neuts (auto) 3.3 Absolute Lymphs (auto) 1.89 Nucleated RBC % 0 Discharge Plan Triage Chief Complaint: Shortness of Breath ED Provider: Raffi Grace Dx/Rx/DC Orders Clinical Impression: Hemoptysis, Lung mass, Anxiety Prescriptions: No Action clonazepam 1 mg tablet 2 mg PO QHS levothyroxine 50 mcg tablet 50 mcg PO SANCHEZ aspirin 81 mg tablet,delayed release (DR/EC) 81 mg PO DAILY Qty: 90 0RF tramadol 50 mg tablet 50 mg PO Q6H PRN (Reason: pain) 3 Days Qty: 12 0RF cholecalciferol (vitamin D3) [Vitamin D3] 10 mcg (400 unit) capsule 20 mcg PO DAILY Label Comments: 1 capsule by mouth as directed cefadroxil 500 mg capsule 500 mg PO BID Qty: 12 0RF levothyroxine 100 mcg Tablet 100 mcg PO MoTuWeThFrSa@0600 Qty: 30 0RF Primary Care Provider: Leidy Beyer Referrals: Leidy Beyer DO [Primary Care Provider] - What to do if you have Problems For any increased pain, shortness of breath, bleeding, nausea or vomiting, chestpain, or any unexpected problems, contact your Primary Care Provider. Call [facility] ([phone]) or report to the closest Emergency Room. Call 911 if necessary. 11/06/22 1403 <Electronically signed by Raffi Grace MD> Cosigner Signature (if applicable): CC: Dr. Leidy Beyer DO ~ Signed [facility] Work Phone: [phone]) 286-799405-30-2023 NoteHNO ID: [id number] Author: Sandra Herrera, RT(R) Service: Nuclear Medicine [...] BY: RT Rohit(R) October 31, 2022 9:30 [facility]05-30-2023 Miscellaneous Notes* Telephone Encounter - Susana Liu APRN.CNP - 10/31/2022 10:30 AM EDT Called patient to notify her of her results and that she needed to follow-up with PCP as soon as possible for chest CT. Attempted to call the primary care provider's office several times with no success. Did send them a copy of her chart for review. Patient is aware and will attempt to get a hold of the office. [facility] History of Present illness Narrative* Sandra Herrera RT(R) - 10/31/2022 9:00 AM EDT Radiology Service Progress Note PATIENT NAME: Amol Mckeon DATE OF SERVICE: October 31, 2022 TIME: 9:30 AM PATIENT IDENTITY VERIFICATION COMPLETED USING TWO (2) IDENTIFIERS: Name and Date of confirmedby patient verbally. FALL SCREENING: Has the patient [...] RT Rohit(R) October 31, 2022 9:30 AM documented in this encounterMary[facility]05-29-2023 NoteHNO ID: [id number] Author: Yolette Larsen APRN.CHRISSIE Service: ? Author Type: Nurse Practitioner Type: Progress Notes Filed: 10/30/2022 12:18 PM Note Text: This note was created using Outline Appriter. Subjective Amol Mckeon is a 72 year old female. HPI by patient: Amol Mckeon is a 72 year old presenting to the office with the complaint of viral symptoms. Started approximately 1 month ago with a cough. Bronchial cough. Associated symptoms include diarrhea but then states this is intermittent for awhile, states it depends on what she eats. Vomited on Sunday then moved in to diarrhea. Now is softer stool, not runny. Has shortness of breath. Temp was 101.7F on Sunday, body aches- states from lack of rest, and fatigue. States some congestion with the mask but not at home. States her blood pressure is normal for her- goes according to the graves- her thyroid? Covid Immunization Dates Overdue - COVID-19 VACCINE (3 - Booster for Pfizer series) Overdue since 07/16/2021 05/21/2021 Imm Admin: COVID-19 original vaccine, age 12+ yr, monovalent (PFIZER-BIONTECH - PURPLE TOP) 04/30/2021 Imm Admin: COVID-19 original vaccine, age 12+ yr, monovalent (PFIZER-BIONTECH - PURPLE TOP) Took 1 home test, I know this isn't covid. Sick contacts: none. Smoking history/second hand smoke: [...] and also states I know this isn't flu. Patient is upset she is only getting [...] water with each dose (more content not included)...[facility]05-29-2023 Instructions * Patient Instructions* Yolette Larsen APRN.[facility] - 10/30/2022 12:04 PM EDT (J06.9) Viral [...] of dehydration, fever greater than 102 F thatis not responding to Tylenol or ibuprofen (Motrin, Advil), drooling, difficulty swallowing, difficulty breathing, shortness of breath, chest pain, evidence of airway compromise (tripod position, neck extension, retractions), seizures, changes in mental status, or other concerns. documented in this encounter[facility]05-29-2023 History of Present illness Narrative* Yolette Larsen APRN.CHRISSIE - 10/30/2022 11:52 AM EDT This note was created using Outline Appriter. Subjective Amol Mckeon is a 72 year old female. HPI by patient: Amol Mckeon is a 72 year old presenting to the office with the complaint of viral symptoms. Started approximately 1 month ago with a cough. Bronchial cough. Associated symptoms include diarrhea but then states this is intermittent for awhile, states it depends on what she eats. Vomited on Sunday then moved in to diarrhea. Now is softer stool, not runny. Has shortness of breath. Temp was 101.7F on Sunday, body aches- states from lack of rest, and fatigue. States some congestion with the mask but not at home. States her blood pressure is normal for her- goes according to the graves- her thyroid? Covid Immunization Dates Overdue - COVID-19 VACCINE (3 - Booster for Pfizer series) Overdue since 07/16/2021 05/21/2021 Imm Admin: COVID-19 original vaccine, age 12+ yr, monovalent (PFIZER-BIONTECH - PURPLE TOP) 04/30/2021 Imm Admin: COVID-19 original vaccine, age 12+ yr, monovalent (PFIZER-BIONTECH - PURPLE TOP) Took 1 home test, I know this isn't covid. Sick contacts: none. Smoking history/second hand smoke: [...] and also states I know this isn't flu. Patient is upset she is only getting a note for today. Advised that out of [facility] I typicallycan give the day seen off or longer [...] and resolution in symptoms. Discussed that she mayneed more workup than what is offered in [facility]. -Signs that warrant an ER evaluation: Sudden change/worsening in condition, lethargy, signs of dehydration, fever greater than 102 F thatis not responding to Tylenol or ibuprofen (Motrin, [...] summary. The patient is agreeable to this planof care and follow-up instructions have been explained in detail. The patient has received these instructions in written format and have expressed an understanding of the after visit summary. Medical Decision Making: Level: 4 - Moderate I spent a total of 20 minutes on the date of the service which included preparing to see the patient, [id number] patient care, completing clinical documentation, obtaining and/or reviewing separately obtained history, performing a medically appropriate examination, counseling and educating the pat ient/family/caregiver, and ordering medications, tests, or procedures. This patient encounter involved the screening or treatment of novel coronavirus infection (COVID-19). documented in this encounter[facility]02-01-2023 NoteHNO ID: [id number] Author: Oneil Bray MD Service: ? Author Type: Physician Type: [...] work note for today and tomorrow. Oneil Bray, [facility] note Author Kenyetta Aguero [facility] January 16, 2023 9:57am Note Date/Time January 16, 2023 9: 57am [facility] Medical Records Department [address] [address] Counseling Note - Pharmacy 01/16/23 0956 MR#: [id number] Acct: [id number] Name: NIGEL MCKEONCA NATY Rep #:[id number] : 1950 72 From: Kenyetta Aguero PCP: Dr. Leidy Beyer, DO Status:ADM IN Y Location: CA3 [id number] Pharmacy [facility] Service has performed discharge medication reconciliation and counseling for this patient. 1. AUGMENTIN 875MG PO BID X 9 DAYS The patient's discharge medication list was reviewed for discrepancies and discrepancies were resolved. The patient was counseled on the following discharge medications and changes in medications for homegoing were reviewed. The Reason for Use, instructions for use, and potential side effects were reviewed for all new medications. The patient's questions regarding all of their medications were answered. The patient was able to verbally demonstrate an understanding of their dischargemedications. Patient counseled by senior pharmacy technicianNinoska. Medications at Discharge Home Medications clonazepam 1 mg tablet 2 mg PO QHS ANXIETY 12/28/20 cholecalciferol (vitamin D3) 10 mcg (400 unit) capsule (Vitamin D3) 10 mcg PO DAILY SUPPLEMENT 04/02/22 aspirin 81 mg tablet,delayed release 81 mg PO DAILY HEART HEALTH 11/06/22 calcium carbonate 500 mg-vitamin D3 3.125 mcg (125 unit) tablet 1 tab PO DAILY SUPPLEMENT 11/06/22 tiotropium 2.5 mcg-olodaterol 2.5 mcg/actuation mist for inhalation (Stiolto Respimat) 2 puff inhalation DAILY COPD #4 grams 11/29/22 benzonatate 200 mg capsule 200 mg PO TID #30 caps 12/28/22 levothyroxine 100 mcg tablet 100 mcg PO DAILY 12/28/22 lidocaine-prilocaine 2.5 %-2.5 % topical cream 1 applic topical ONCE PRN port access 30 days #30 grams 12/28/22 ondansetron 8 mg disintegrating tablet 8 mg PO Q8H PRN nausea and vomiting #30 tabs 12/28/22 loperamide 15 ml PO Q8H PRN PRN diarrhea 01/15/23 amoxicillin 875 mg-potassium clavulanate 125 mg tablet 1 tab PO BID #18 tabs 01/16/23 famotidine 40 mg tablet (Pepcid) 40 mg PO BID #60 tabs 01/16/23 01/16/23 0957 <Electronically signed by Kenyetta Aguero> Date _ Kenyetta Torres Signature (if applicable): Date ____ CC: ~ Signed [facility] Work Phone: Discharge summary Author Dr. Huntley [facility] November 07, 2022 12:11pm Note Date/Time November 07, 2022 12:07 pm [facility] Medical Records Department [address] [place] [address] Instructions for Home/Discharge Instructions 11/07/22 1206 MR#: [id number] Acct: [id number] Name: AMOL MCKEON Rep #:[id number] : 1950 72 From: Oskar thomson MD PCP: Dr. Leidy Beyer, Status:ADM IN Discharge Instructions Diet Discharge Diet: No restrictions Activity Discharge Activity: Return to Normal Activity Dressing / Incision Call your doctor if you observe: Fever of 101 or Higher, Shortness of breath, Dizziness, Fainting spells, Swelling in the ankles, Chest pain and Increased palpitations (irregular heartbeat) Follow Up Care Test Results: Test results from this visit will be discussed in further detail at your follow- up appointment, if applicable. Discharge Plan Admission Admit Date/Time: 11/06/22 13:55 Attending Provider: Oskar Huntley Primary Care Provider: Leidy Beyer Consulting Providers: Kurt Larose ; Miguel Ángel Wells ; Bobby Arciniega ; Bridger Richard ; Ese Marin DATA COLLECTION INTERVIEWER Discharge Orders/Prescriptions Prescriptions: Continued clonazepam 1 mg tablet 2 mg PO QHS levothyroxine 50 mcg tablet 50 mcg PO SANCHEZ cholecalciferol (vitamin D3) [Vitamin D3] 10 mcg (400 unit) capsule 10 mcg PO DAILY Label Comments: 1 capsule by mouth as directed levothyroxine 88 mcg tablet 88 mcg PO MOTUWETHFRSA benzonatate 100 mg capsule 100 mg PO Q8H PRN (Reason: COUGH ) albuterol sulfate 90 mcg/actuation HFA aerosol inhaler 2 inh INHALATION Q6H PRN (Reason: SHORTNESS OF BREATH ) doxycycline hyclate 100 mg tablet 100 mg PO BID calcium carbonate-vitamin D3 500 mg-3.125 mcg (125 unit) Tablet 1 tab PO DAILY Visine Dry Eye Relief 1 % Drops 1 drp EACH EYE DAILY PRN (Reason: DRY EYE RELIEF) Held aspirin 81 mg tablet,delayed release (DR/EC) 81 mg PO DAILY Hold Instructions: Resume on 11/13/22. Referrals / Follow Up: Leidy Beyer DO [Primary Care Provider] - In 1 Week Disposition Disposition (needs filled in before D/C Order can be placed): Home, Self Care 11/07/22 1211<Electronically signed by Oskar Huntley MD>Oskar Huntley MD CC: SHAHLA Marin; Dr. Miguel Ángel Wells MD; Dr. Bobby Arciniega DO; Dr. Kurt Larose MD; Dr. Leidy Beyer DO; Dr. Bridger Richard MD ~ Signed [facility] Work Phone: Discharge summary Author Roberto Guidry [facility] January 09, 2023 8:59am Note Date/Time January 09, 2023 8:5 8am [facility] Medical Records Department [address] [place] [address] Instructions for Home/Discharge Instructions 01/09/23 0858 MR#: [id number] Acct: [id number] Name: AMOL MCKEON Rep #:[id number] : 1950 72 From: Roberto Anderson PCP: Dr. Leidy Beyer DO Status:REG [facility] Discharge Instructions Diet Discharge Diet: No restrictions Activity Discharge Activity: May Shower Dressing / Incision Call your doctor if your incision/area has: Continuous Slow Oozing, Sudden Increased Bleeding, Increased Pain/ Swelling, Increased Redness, Foul Smelling Discharge and Swelling at the incision site Call your doctor if you observe: Fever of 101 or Higher and Uncontrolled pain Cleanse incision/area with: Soap & Water Follow Up Care Test Results: Test results from this visit will be discussed in further detail at your follow- up appointment, if applicable. Discharge Plan Admission Primary Reason for Your Visit: Port placement Attending Provider: Roberto Guidry Primary Care Provider: Leidy Beyer Discharge Orders/Prescriptions Prescriptions: No Action levothyroxine 100 mcg tablet 100 mcg PO DAILY lidocaine-prilocaine 2.5-2.5 % cream 1 applic topical ONCE PRN (Reason: port access) 30 Days Qty: 30 2RF ondansetron 8 mg tablet,disintegrating 8 mg PO Q8H PRN (Reason: nausea and vomiting) Qty: 30 2RF benzonatate 200 mg capsule 200 mg PO TID Qty: 30 2RF clonazepam 1 mg tablet 2 mg PO QHS cholecalciferol (vitamin D3) [Vitamin D3] 10 mcg (400 unit) capsule 10 mcg PO DAILY Patient Comments: 1 capsule by mouth as directed calcium carbonate-vitamin D3 500 mg-3.125 mcg (125 unit) Tablet 1 tab PO DAILY Visine Dry Eye Relief 1 % Drops 1 drp EACH EYE DAILY PRN (Reason: DRY EYE RELIEF) aspirin 81 mg tablet,delayed release (DR/EC) 81 mg PO DAILY Hold Instructions: Resume on 11/13/22. Stiolto Respimat 2.5-2.5 mcg/actuation mist 2 puff inhalation DAILY MDD 2 puffs Qty: 4 6RF Referrals / Follow Up: Leidy Beyer DO [Primary Care Provider] - Disposition Disposition (needs filled in before D/C Order can be placed): Home, Self Care 01/09/23 0859<Electronically signed by Roberto Guidry MD>Roberto Guidry MD CC: Dr. Leidy Beyer DO ~ Signed [facility] Work Phone: Discharge summary Author Conner Mcclure [facility] January 15, 2023 6:57am Note Date/Time January 15, 2023 5: 17am [facility] Medical Records Department [address] [place] [address] Emergency Department Summary 01/15/23 MR#: [id number] Acct: [id number] Name: RAMIROAMOL ALFONSO Rep #:[id number] : 1950 72 From: Conner Álvarez PCP: Dr. Leidy Beyer DO Status:ADM IN Location: MS3 [id number] HPI History of Present Illness Chief Complaint: Bite Informant: patient Narrative Narrative: Left hand dominant female presents By infection left forearm. Home cat, stated daughter brought her dogs over got her cat worked up. She got bitten left forearm. This does not happen the past. Her cats immunizations up-to-date. Patient tetanus unknown. Denies fever or chills. She states that evening therewas redness up the forearm that has maintained. She cleansed it with peroxide initially. She does have a recent history of stage III squamous cell carcinoma diagnosed a few months ago she is currently going through chemoradiation. Last chemo treatment 5 days ago radiation treatment 6 days ago. Remote tobacco stopped in 2014. Allergies penicillin causing swelling locally. No lip or tongue swelling. No trouble breathing. In addition states recent indigestion states prescription of Pepcid would help however cause diarrhea for which she takes Imodium. Denies abdominal pain. Reports there is pus draining from one of the wound sites. Tetanus Immunization: Unknown Prior similar symptoms: No PFSH PFSH Medical History Cataract Chronic respiratory failure with hypoxia Essential hypertension Former smoker Graves disease HLD (hyperlipidemia) Hypothyroidism Loss of hearing Regional lymph node metastasis present Restless leg syndrome Squamous cell carcinoma of lung, stage III Stage 2 moderate COPD by GOLD classification TIA (transient ischemic attack) Wears dentures Home Medications clonazepam 1 mg tablet 2 mg PO QHS ANXIETY 12/28/20 [History Last Taken 11/05/22] cholecalciferol (vitamin D3) 10 mcg (400 unit) capsule (Vitamin D3) 10 mcg PO DAILY SUPPLEMENT 04/02/22 [History Last Taken 11/05/22] aspirin 81 mg tablet,delayed release 81 mg PO DAILY HEART HEALTH 11/06/22 [History Last Taken 11/05/22] calcium carbonate 500 mg-vitamin D3 3.125 mcg (125 unit) tablet 1 tab PO DAILY SUPPLEMENT 11/06/22 [History Last Taken 11/05/22] tiotropium 2.5 mcg-olodaterol 2.5 mcg/actuation mist for inhalation (Stiolto Respimat) 2 puff inhalation DAILY COPD #4 grams 11/29/22 [Rx Last Taken Unknown] benzonatate 200 mg capsule 200 mg PO TID #30 caps 12/28/22 [Rx Last Taken Unknown] levothyroxine 100 mcg tablet 100 mcg PO DAILY 12/28/22 [History Last Taken Unknown] lidocaine-prilocaine 2.5 %-2.5 % topical cream 1 applic topical ONCE PRN port access 30 days #30 grams 12/28/22 [Rx Last Taken Unknown] ondansetron 8 mg disintegrating tablet 8 mg PO Q8H PRN nausea and vomiting #30 tabs 12/28/22 [Rx Last Taken Unknown] Allergy/AdvReac Type Severity Reaction Status Date / Time Penicillins [PCN] Allergy Intermediate Swelling Verified 01/09/23 15:12 cheese Allergy Hives Verified 01/09/23 15:12 chocolate flavor Allergy Rash Verified 01/09/23 15:12 Family History Mother Hypertension Father Hypertension Surgical History History of appendectomy History of hysterectomy Social History household members: none Smoking Status: Former smoker alcohol intake: never substance use type: does not use ROS ROS ED Constitutional Constitutional ED: Denies chills, fever(s) or sweats Eyes Eyes: Denies change in vision ENT ENT ED: Denies dysphagia or sore throat Cardiovascular Cardiovascular: Denies chest pain, leg edema, palpitations or racing heartbeat Respiratory/Chest Respiratory/Chest: Denies cough, dyspnea or dyspnea on exertion Gastrointestinal Gastrointestinal: Denies abdominal pain, diarrhea, nausea or vomiting Genitourinary Genitourinary ED: Denies dysuria, hematuria or urinary frequency Musculoskeletal Musculoskeletal: Denies back pain, extremity pain or neck pain Integumentary Reports rash and wounds Neurologic Neurologic: Denies headache(s), paresthesias or weakness EXAM Physical Exam Const Vital Signs: 01/15/23 04:50 01/15/23 05:00 Temperature 98.2 F 98.2 F Temperature Source Oral Oral Pulse Rate 95 95 Respiratory Rate 16 16 Blood Pressure 157/83 H 147/91 H Blood Pressure Mean 107 109 Pulse Ox 93 92 Oxygen Delivery Method Room Air Room Air Positive well nourished and well developed General Appearance ED: well developed and NAD HEENT Reports moist mucous membranes normocephalic and atraumatic Eyes PERRL, EOMs intact bilaterally and conjunctivae normal General Eye ED: Yes normal appearance of both eyes Neck no lymphadenopathy and supple General: Negative for tenderness Chest Wall Chest: Negative for tenderness Resp normal respiratory effort and normal air movement Effort and Inspection: symmetric chest movement; Negative for respiratory distress Cardio regular rate, regular rhythm and no murmurs Peripheral Pulses: pulses 2+ throughout GI normal to inspection, nondistended, normoactive bowel sounds and non-tender Palpation: Negative for guarding or rebound tenderness present Back/Spine no CVA tenderness and no thoracic nor lumbar tenderness Extremity Extremity Narrative: Left upper extremity: Distal forearm couple puncture wounds 1 with small ulceration on the radial aspect. There is redness of the distal forearm that moves up to the proximal forearm on the volar aspect small streaking noted near the medial epicondyle. No streaking in the upper arm or tenderness. There is no crepitus. Ulcer express small amount of exudates with cultures collected. General Extremety ED: Yes edema and tenderness General Extremity: edema Neuro oriented x3 and no sensory deficits noted Sensorium / Orientation: awake and alert MDM MDM MDM Narrative Medical decision making narrative: Interventions / MDM: Differential diagnosis: Cellulitis, immunocompromise Diagnosis considered but do not suspect: N/A My EKG interpretation: N/A Imaging independently reviewed and interpreted by myself: Left forearm 2 views: No radiopaque foreign bodies, no soft tissue gas External documents reviewed: N/A Test considered but not ordered:N/A ED course: Patient vital stable however immunocompromised patient with cat bite cellulitis. Sepsis labs were ordered, left forearm x-ray, cultures from drainage was obtained. Penicillin allergy causing local hives. She started on Rocephin and Flagyl IV. Tetanus updated. Labs White count 2. Elevated serum P of 115. X-ray negative for any soft tissue gas or radiopaque foreign bodies. Wound culture, culture ending. 05: I spoke with hospitalist Dr. Olea for admission. Re-evaluation: stable Disposition discussed with patient/family/significant other: Patient Case discussed with consulting clinician: Hospitalist This note was generated with [employer] dictation software. It may contain incorrect words, spelling, and punctuation that were not noted in checking the note before signing. Discharge Plan Dx/Rx/DC Orders Clinical Impression: Cat bite of left forearm with infection, Squamous cell carcinoma of lung, stage III, Cellulitis, Immunosuppressed status, Tetanus toxoid vaccination administered at current visit Disposition Disposition: Acute Care Hospital [facility] What to do if you have Problems For any increased pain, shortness of breath, bleeding, nausea or vomiting, chest pain, or any unexpected problems, contact your Primary Care Provider. Call [facility] ([phone]) or report to the closest Emergency Room. Call 911 if necessary. 01/15/23 0657 <Electronically signed by Conner Álvarez> Cosigner Signature (if applicable): CC: Dr. Leidy Beyer DO ~ Signed [facility] Work Phone: Discharge summary Author Michael Pina [facility] January 16, 2023 9:32am Note Date/Time January 16, 2023 9: 18am [facility] Medical Records Department [address] [place] [id number] Instructions for Home/Discharge Instructions 01/16/23 0915 MR#: [id number] Acct: [id number] Name: AMOL MCKEON Rep #:[id number] : 1950 72 From: Michael Pina DO PCP: Dr. Leidy Beyer DO Status:ADM IN Discharge Instructions Diet Discharge Diet: No restrictions Activity Discharge Activity: Return to Normal Activity Return to work on:: 01/19/23 Weight Bearing Status: Full weight bearing Follow Up Care Test Results: Test results from this visit will be discussed in further detail at your follow- up appointment, if applicable. Discharge Plan Admission Admit Date/Time: 01/15/23 05:59 Primary Reason for Your Visit: cellulitis left arm Attending Provider: Michael Pina Primary Care Provider: Leidy Beyer Consulting Providers: Michelle Olea Discharge Orders/Prescriptions Prescriptions: New famotidine [Pepcid] 40 mg tablet 40 mg PO BID Qty: 60 0RF amoxicillin-pot clavulanate 875-125 mg tablet 1 tab PO BID Qty: 18 0RF Rx Instructions: take with food Continued levothyroxine 100 mcg tablet 100 mcg PO DAILY lidocaine-prilocaine 2.5-2.5 % cream 1 applic topical ONCE PRN (Reason: port access) 30 Days Qty: 30 2RF ondansetron 8 mg tablet,disintegrating 8 mg PO Q8H PRN (Reason: nausea and vomiting) Qty: 30 2RF benzonatate 200 mg capsule 200 mg PO TID Qty: 30 2RF clonazepam 1 mg tablet 2 mg PO QHS cholecalciferol (vitamin D3) [Vitamin D3] 10 mcg (400 unit) capsule 10 mcg PO DAILY Patient Comments: 1 capsule by mouth as directed calcium carbonate-vitamin D3 500 mg-3.125 mcg (125 unit) Tablet 1 tab PO DAILY aspirin 81 mg tablet,delayed release (DR/EC) 81 mg PO DAILY Hold Instructions: Resume on 11/13/22. loperamide [Imodium A-D] 15 ml PO Q8H PRN PRN (Reason: diarrhea) Stiolto Respimat 2.5-2.5 mcg/actuation mist 2 puff inhalation DAILY MDD 2 puffs Qty: 4 6RF Discontinued famotidine [Pepcid] 40 mg tablet 40 mg PO BID Referrals / Follow Up: Leidy Beyer DO [Primary Care Provider] - In 1 Week Srinivasa Francisco MD [Med Staff - Active Staff] - See Referral Note (next Sunday) Disposition Disposition (needs filled in before D/C Order can be placed): Home, Self Care 01/16/23 0932<Electronically signed by Michael Pina DO>Michael Pina DO CC: Dr. Michelle Olea MD; Dr. Leidy Beyer DO ~ Signed [facility] Work Phone: Evaluation note* Diagnosis Onset Date Resolution Status Sepsis acute UTI (urinary tract infection) acute [facility] Work Phone: Evaluation note* Diagnosis Onset Date Resolution Status Elevated lactic acid level a cute Leukocytosis acute Sepsis acute UTI (urinary tract infection) acute Weakness acute [facility] Work Phone: Evaluation note* Diagnosis Onset Date Resolution Status Elevated lactic acid level r esolved Leukocytosis resolved Sepsis resolved Weakness resolved [facility] Work Phone: Evaluation note* Diagnosis Viral upper respiratory tract infection with cough- Primary Acute upper respiratory infections of unspecified site Elevated blood-pressure reading without diagnosis of hypertension Elevated blood pressure reading without diagnosis of hypertension Cough present for greater than 3 weeks SOB (shortness of breath) [facility] Onset Date Resolution Status Anxiety acute Hemoptysis acute Lung mass acute [facility] Work Phone: Evaluation note* Diagnosis Onset Date Resolution Status Anxiety acute Atelectasis of right lung ac [place] Essential hypertension acute Hemoptysis acute HLD (hyperlipidemia) acute Hypothyroidism acute Lung mass acute Mass of upper lobe of right lung acute Right lower lobe lung mass a cute Chronic respiratory failure with hypoxia chronic [facility] Work Phone: Evaluation note* Diagnosis Onset Date Resolution Status Anxiety acute Atelectasis of right lung ac [place] Essential hypertension acute Hemoptysis acute HLD (hyperlipidemia) acute Hypothyroidism acute Atelectasis of right lung ac [place] Hemoptysis acute HLD (hyperlipidemia) acute Hypothyroidism acute Atelectasis of right lung ac [place] Squamous cell carcinoma of lung, stage III acute [facility] Work Phone: Evaluation note* Diagnosis Onset Date Resolution Status Anxiety acute Atelectasis of right lung ac [place] Essential hypertension acute Hemoptysis acute HLD (hyperlipidemia) acute Hypothyroidism acute Atelectasis of right lung ac [place] Hemoptysis acute HLD (hyperlipidemia) acute Hypothyroidism acute Atelectasis of right lung ac [place] Squamous cell carcinoma of lung, stage III acute Primary cancer of right upper lobe of lung acute Regional lymph node metastasis present acute Squamous cell carcinoma of lung, stage III acute Primary cancer of right upper lobe of lung acute Regional lymph node metastasis present acute Squamous cell carcinoma of lung, stage III acute Encounter for education acut e Primary cancer of right upper lobe of lung acute Regional lymph node metastasis present acute Primary cancer of right upper lobe of lung acute Regional lymph node metastasis present acute Squamous cell carcinoma of lung, stage III acute [facility] Work Phone: Evaluation note* Diagnosis Onset Date Resolution Status Anxiety acute Atelectasis of right lung ac [place] Essential hypertension acute Hemoptysis acute HLD (hyperlipidemia) acute Hypothyroidism acute Atelectasis of right lung ac [place] Hemoptysis acute HLD (hyperlipidemia) acute Hypothyroidism acute Atelectasis of right lung ac [place] Squamous cell carcinoma of lung, stage III acute Primary cancer of right upper lobe of lung acute Regional lymph node metastasis present acute Squamous cell carcinoma of lung, stage III acute Primary cancer of right upper lobe of lung acute Regional lymph node metastasis present acute Squamous cell carcinoma of lung, stage III acute Encounter for education acut e Primary cancer of right upper lobe of lung acute Regional lymph node metastasis present acute Primary cancer of right upper lobe of lung acute Regional lymph node metastasis present acute Squamous cell carcinoma of lung, stage III acute Primary cancer of right upper lobe of lung acute Regional lymph node metastasis present acute Squamous cell carcinoma of lung, stage III acute Cat bite of left forearm with infection acute Cellulitis acute Immunosuppressed status acut e Squamous cell carcinoma of lung, stage III acute Tetanus toxoid vaccination administered at current vis it acute [facility] Work Phone: Evaluation note* Diagnosis Onset Date Resolution Status Primary cancer of right upper lobe of lung acute Regional lymph node metastasis present acute Squamous cell carcinoma of lung, stage III acute Primary cancer of right upper lobe of lung acute Regional lymph node metastasis present acute Squamous cell carcinoma of lung, stage III acute Encounter for education acut e Primary cancer of right upper lobe of lung acute Regional lymph node metastasis present acute Primary cancer of right upper lobe of lung acute Regional lymph node metastasis present acute Squamous cell carcinoma of lung, stage III acute Primary cancer of bronchus of right lower lobe acute Primary cancer of right upper lobe of lung acute Regional lymph node metastasis present acute Squamous cell carcinoma of lung, stage III acute Cellulitis acute Immunosuppressed status acut e Squamous cell carcinoma of lung, stage III acute Primary cancer of right upper lobe of lung acute Encounter for chemotherapy management acute Primary cancer of right upper lobe of lung acute Regional lymph node metastasis present acute Primary cancer of right upper lobe of lung acute Primary cancer of bronchus of right lower lobe acute Regional lymph node metastasis present acute Primary cancer of right upper lobe of lung acute Primary cancer of bronchus of right lower lobe acute Regional lymph node metastasis present acute Primary cancer of right upper lobe of lung acute Primary cancer of right upper lobe of lung acute Primary cancer of bronchus of right lower lobe acute Regional lymph node metastasis present acute Primary cancer of right upper lobe of lung acute Squamous cell carcinoma of lung, stage III acute Stage 2 moderate COPD by GOLD classification acute Leg pain, diffuse noneactive [facility] Work Phone: Evaluation note* Diagnosis Onset Date Resolution Status Primary cancer of right upper lobe of lung acute Primary cancer of bronchus of right lower lobe chronic Regional lymph node metastasis present chronic Squamous cell carcinoma of lung, stage III acute Cellulitis acute Immunosuppressed status acut e Squamous cell carcinoma of lung, stage III acute Primary cancer of right upper lobe of lung acute Encounter for chemotherapy management acute Primary cancer of right upper lobe of lung acute Regional lymph node metastasis present chronic Primary cancer of right upper lobe of lung acute Primary cancer of bronchus of right lower lobe chronic Regional lymph node metastasis present chronic Primary cancer of right upper lobe of lung acute Primary cancer of bronchus of right lower lobe chronic Regional lymph node metastasis present chronic Primary cancer of right upper lobe of lung acute Primary cancer of right upper lobe of lung acute Primary cancer of bronchus of right lower lobe chronic Regional lymph node metastasis present chronic Primary cancer of right upper lobe of lung acute Squamous cell carcinoma of lung, stage III acute Stage 2 moderate COPD by GOLD classification acute Leg pain, diffuse noneactive Primary cancer of bronchus of right lower lobe chronic Regional lymph node metastasis present chronic Primary cancer of bronchus of right lower lobe chronic Regional lymph node metastasis present chronic [facility] Work Phone: Evaluation note* Diagnosis Onset Date Resolution Status Primary cancer of bronchus of right lower lobe chronic Regional lymph node metastasis present chronic Primary cancer of right upper lobe of lung acute Squamous cell carcinoma of lung, stage III acute Stage 2 moderate COPD by GOLD classification acute Leg pain, diffuse noneactive Primary cancer of bronchus of right lower lobe chronic Regional lymph node metastasis present chronic Primary cancer of bronchus of right lower lobe chronic Regional lymph node metastasis present chronic Abnormal PET scan of colon a cute Radiation pneumonitis acute Primary cancer of bronchus of right lower lobe chronic [facility] Work Phone: Evaluation note* Diagnosis Onset Date Resolution Status Squamous cell carcinoma of lung, stage III acute Stage 2 moderate COPD by GOLD classification chronic Leg pain, diffuse noneactive Primary cancer of bronchus of right lower lobe chronic Regional lymph node metastasis present chronic Primary cancer of bronchus of right lower lobe chronic Regional lymph node metastasis present chronic Abnormal PET scan of colon a cute Radiation pneumonitis acute Primary cancer of bronchus of right lower lobe chronic Primary cancer of bronchus of right lower lobe chronic Stage 2 moderate COPD by GOLD classification chronic Radiation pneumonitis acute Primary cancer of bronchus of right lower lobe chronic [facility] Work Phone: Evaluation note* Diagnosis Onset Date Resolution Status Abnormal PET scan of colon a cute Radiation pneumonitis acute Primary cancer of bronchus of right lower lobe chronic Primary cancer of bronchus of right lower lobe chronic Stage 2 moderate COPD by GOLD classification chronic Radiation pneumonitis acute Primary cancer of bronchus of right lower lobe chronic Primary cancer of bronchus of right lower lobe chronic Regional lymph node metastasis present [facility] Work Phone: Evaluation note* Diagnosis SOB (shortness of breath) Shortness of breath [facility] Work Phone: History and physical note Author Michelle Olea [facility] January 15, 2023 6:16am Note Date/Time January 15, 2023 6: 05am [facility] Medical Records Department [address] [place] [id number] H&P Exam - Hospitalist 01/15/23 0604 MR#: [id number] Acct: [id number] Name: AMOL MCKEON Rep #:[id number] : 1950 72 From: Michelle Olea MD PCP: Dr. Leidy Beyer, DO Status:REG ER Location: ED HPI - General General Date of Admission: 01/15/23 Date of Service: 01/15/23 Chief Complaint: L wrist/left forearm cat bite, worsening redness, drainage. HPI Narrative The patient is a 72 y/o F w/ PMHx: HTN, HLD, COPD w/ Chronic Hypoxic RespiratoryFailure, Former tobacco use, RLS, Anxiety, Hx TIA, Hx Graves disease s/p treatment with now Hypothyroidism, GERD w/ recent Oncology mention of esophagitis on PPI treatment, stage IIIB (cT3 cN2 M0) squamous cell carcinoma within the right lower lobe centrally with potentially separate tumor nodules within the same lobe following with Dr. Francisco currently undergoing chemotherapy and radiation with last noted 01/09/23 who presents to the [facility] ED on 01/15/23 with history of cat bite to the L wrist/forearm 2 days prior with worsening appearance with purulent discharge from the bite region as well as erythema with red streaking up the arm prompting eventual ED evaluation. The cat is her cat and is up-to-date on all vaccinations. She notes that recently her children had brought over a dog which has caused the cat to act up. Work-up in the ED included T98.2, heart rate 95, BP 147/91, respiratory rate 16, 92% on room air, CBC with WBC 6.2, human 13.5, platelet 189 with lymphopenia, unremarkable coags, CMP with T. bili 1.50, CRP 115, ESR pending upon requested evaluation of patient, plain film of the left forearm and hand pending upon request evaluation of patient, blood culture x2 pending per ED, wound culture pending per ED. In the ED patient administered IV Rocephin and IV Flagyl given penicillin allergy as well as a tetanus update. [facility] Medical History Cataract Chronic respiratory failure with hypoxia Essential hypertension Former smoker Graves disease HLD (hyperlipidemia) Hypothyroidism Loss of hearing Regional lymph node metastasis present Restless leg syndrome Squamous cell carcinoma of lung, stage III Stage 2 moderate COPD by GOLD classification TIA (transient ischemic attack) Wears dentures Home Medications clonazepam 1 mg tablet 2 mg PO QHS ANXIETY 12/28/20 [History Last Taken 11/05/22] cholecalciferol (vitamin D3) 10 mcg (400 unit) capsule (Vitamin D3) 10 mcg PO DAILY SUPPLEMENT 04/02/22 [History Last Taken 11/05/22] aspirin 81 mg tablet,delayed release 81 mg PO DAILY HEART HEALTH 11/06/22 [History Last Taken 11/05/22] calcium carbonate 500 mg-vitamin D3 3.125 mcg (125 unit) tablet 1 tab PO DAILY SUPPLEMENT 11/06/22 [History Last Taken 11/05/22] tiotropium 2.5 mcg-olodaterol 2.5 mcg/actuation mist for inhalation (Stiolto Respimat) 2 puff inhalation DAILY COPD #4 grams 11/29/22 [Rx Last Taken Unknown] benzonatate 200 mg capsule 200 mg PO TID #30 caps 12/28/22 [Rx Last Taken Unknown] levothyroxine 100 mcg tablet 100 mcg PO DAILY 12/28/22 [History Last Taken Unknown] lidocaine-prilocaine 2.5 %-2.5 % topical cream 1 applic topical ONCE PRN port access 30 days #30 grams 12/28/22 [Rx Last Taken Unknown] ondansetron 8 mg disintegrating tablet 8 mg PO Q8H PRN nausea and vomiting #30 tabs 12/28/22 [Rx Last Taken Unknown] Allergy/AdvReac Type Severity Reaction Status Date / Time Penicillins [PCN] Allergy Intermediate Swelling Verified 01/09/23 15:12 cheese Allergy Hives Verified 01/09/23 15:12 chocolate flavor Allergy Rash Verified 01/09/23 15:12 Family History Mother Hypertension Father Hypertension Surgical History History of appendectomy History of hysterectomy Social History household members: none Smoking Status: Former smoker alcohol intake: never substance use type: does not use ROS ROS Narrative Admission Review of Systems: CONSTITUTIONAL: No weight loss, fever, chills, + weakness or fatigue. HEENT: Eyes: No visual loss, blurred vision, double vision or yellow sclerae. Ears, Nose, Throat: No hearing loss, sneezing, congestion, runny nose or sore throat. SKIN: + LUE with cat bite, purulent drainage, erythema, red streaks. CARDIOVASCULAR: No chest pain, chest pressure or chest discomfort, palpitations, edema, orthopnea, syncopal events. RESPIRATORY: + chronic shortness of breath. No marked cough or sputum, wheezing, hemoptysis. GASTROINTESTINAL: No anorexia, nausea, vomiting or diarrhea, abdominal pain, melena, BRBPR. GENITOURINARY: No dysuria, frequency, urgency or retention. NEUROLOGICAL: No headache, dizziness, syncope, paralysis, ataxia, numbness or tingling in the extremities, focal weakness, change in bowel or bladder control, seizure. MUSCULOSKELETAL: + muscle, back pain, joint pain or stiffness. HEMATOLOGIC: No anemia, bleeding or bruising. LYMPHATICS: No enlarged nodes. No history of splenectomy. PSYCHIATRIC: + history of depression or anxiety. ENDOCRINOLOGIC: No reports of sweating, cold or heat intolerance. No polyuria or polydipsia. ALLERGIES: + history of hives. Vital Signs Vital Signs Vital Signs: 01/15/23 04:50 01/15/23 05:00 Temperature 98.2 F 98.2 F Temperature Source Oral Oral Pulse Rate 95 95 Respiratory Rate 16 16 Blood Pressure 157/83 H 147/91 H Blood Pressure Mean 107 109 Pulse Ox 93 92 Oxygen Delivery Method Room Air Room Air Weight Weight: 150 lb 2.157 oz Body Mass Index (BMI) 25.0 Physical Exam Narrative Physical Examination: General: Awake, alert, oriented x 3 and cooperative, seated upright in the ED bed in no apparent distress, initially talking on the phone. Skin: Normal color, normal turgor, no icterus, no cyanosis except for left upper extremity with cat bite with small open region on the left forearm near the wrist medially with some mild purulent drainage with erythema extending from there upward with mild increased edema and warmth to the region. HEENT: AT/NC, EOMI, PERRLA, mildly dry MM, no carotid bruits or JVD noted. Lungs: CTA bilaterally, moderate effort, mild decrease BL bases, no rales, ronchi or wheezing. Heart: Currently regular rate and rhythm; no gallop, rub audible. Abdomen: Soft, NTTP, ND, normal BS, no HSM. Extremities: No cyanosis, no clubbing, see skin. Neurological: Patient awake, alert, oriented as noted, cognitive function intact; pupils equally reactive to light and accommodation, cranial nerves grossly normal, moving all 4 extremities although limited left upper extremity movement secondary to pain elicited with acute presentation as noted, strength accordingly mildly to moderately globally decreased. Psychiatric: Affect appears normal, no acute evidence of depressive or anxiety feelings. Results Lab / Micro Data 01/15/23 05:17 01/15/23 05:17 Labs: Laboratory Results - last 24 hr 01/15/23 05:17: WBC 6.2, RBC 4.56, Hgb 13.5, Hct 41.3, MCV 90.6, MCH 29.6, MCHC 32.7, RDW Std Deviation 42.5, RDW Coeff of Ruthie 12.9, Plt Count 189, MPV 9.8, Immature Gran % (Auto) 0.800, Neut % (Auto) 83.4 H, Lymph % (Auto) 5.9 L, [place] % (Auto) 8.1, Eos % (Auto) 1.0, Baso % (Auto) 0.8, Absolute Neuts (auto) 5.1, Absolute Lymphs (auto) 0.36 L, Nucleated RBC % 0, PT 12.9, INR 1.0, APTT 31.4, Sodium 140, Potassium 3.6, Chloride 103, Carbon Dioxide 30.0, Anion Gap 7, BUN 13, Creatinine 0.83, Estim Creat Clear Calc 55.94, Est GFR (MDRD) Af Amer 87, Est GFR (MDRD) Non-Af 72, BUN/Creatinine Ratio 15.6, Glucose 101, Lactic Acid 0.8, Calcium 8.7, Total Bilirubin 1.50 H, AST 15, ALT 15, Alkaline Phosphatase 73, C-React Prot Ext Range 115.00 H, Total Protein 7.0, Albumin 3.2, Globulin 3.8, Albumin/Globulin Ratio 0.8 L Radiology Impression Forearm X-Ray 01/15/23 05:28 IMPRESSION: No acute osseous abnormality of the left forearm. 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 Francisco currently undergoing chemotherapy and radiation with last noted 01/09/23 who presents to the [facility] ED on 01/15/23 with history of cat bite to the L wrist/forearm 2 days prior with worsening appearance with purulent discharge from the bite region as well as erythema with red streaking up the arm prompting eventual ED evaluation. #1. Left Forearm/RADHA Extremity Cellulitis secondary to Infected cat bite: Will admit to medical surgical floor, maintain on IV Rocephin and IV Flagyl given allergies noted, will obtain Wound Cx, will obtain Wound MRSA PCR to be cautious although again initial etiology of cat bite is noted, plan repeat CBC in AM, continue affected extremity elevation above heart when seated and in bed, monitor erythema outline with VS checks, if worsening low threshold to obtain duplex US to assure no DVT concurrently, PRN pain regimen, PRN antiemetic regimen. #2. Stage IIIB (cT3 cN2 M0) squamous cell carcinoma within the right lower lobe: Following with Dr. Francisco and Dr. Fuchs, undergoing both chemotherapy and radiation, last radiation noted 01/09/23, mag and phos pending. #3. Chronic COPD with chronic hypoxic respiratory failure: Noted chart history of chronic hypoxic respiratory failure however most recent visit prior 01/09/2023 patient was noted to be 96% on room air, will temporally hold home inhalers and in the interim place on ATC budesonide therapy, PRN albuterol, HOB, IS parameters. #4. Hypothyroidism: Hx Graves disease s/p radioactive iodine treatment, will continue patient home levothyroxine regimen. #5. Anxiety: We will continue patient home clonazepam regimen. #6. Former tobacco use: Encourage continued tobacco cessation. #7. Hypertension: Noted in chart history, not on regimen, BP is elevated above goal but patient presenting acutely as noted #1, continue to monitor and add regimen if appropriate, as needed IV hydralazine in interim. #8. Hyperlipidemia: Noted in chart history, not on regimen, defer to outpatient. #9. History TIA: We will continue aspirin, not on statin therapy nor hypertensive regimen, continue to monitor and add if appropriate as noted. #10. GERD with history of esophagitis: Noted most recent oncology/rad oncology notes, will maintain on PPI with as needed Mylanta also. #11. DVT prophylaxis: Lovenox. Charges/Coding Visit Charges Inpatient E&M: 01714 Init Hosp L3 01/15/23 0616 <Electronically signed by Michelle Olea MD> Cosigner Signature (if applicable): CC: Dr. Michelle Olea MD; Dr. Leidy Beyer DO~ Signed [facility] Work Phone: Progress note Author Dank J[facility] Note Date/Time November 04, 2024 2:45p m [place] [facility] [address] [place] [address] OFFICE VISIT Date of Service: 11/04/24 1405 MR#: [id number] Acct: [id number] Name: AMOL MCKEON Rep #: [id number] : 1950 From: Dank Dorsey jose DO Age/Sex: 74/F Location: [facility] Status: Signed Intake Vital Signs 11/04/24 08:04 11/04/24 14:05 Height 5 ft 5 in 5 ft 5 in Weight: 130 lb 130 lb BMI 21.6 21.6 BP 176/126 H 176/126 H Blood Pressure Location Lt brachial Position Sitting Sitting Respiration 22 H 22 H Pulse 89 89 Pulse Source NIBP Monitor Temp 97.4 F L 97.4 F L Temperature Source Temporal Artery Temporal Artery Pulse Oximetry (%) 98 98 Oxygen Delivery Method room air room air Comment Bp elevated due to graves disease per patient. 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 classification Low TSH level Elevated troponin Radiation pneumonitis Abnormal PET scan of colon Immunosuppressed status Cellulitis Atelectasis of right lung Anxiety Abnormal cardiac enzyme level Port-A-Cath in place Encounter for chemotherapy management Primary cancer of bronchus of right lower lobe Tetanus toxoid vaccination administered at current visit Cat bite of left forearm with infection 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, stage III Loss of hearing Cataract Wears dentures Essential hypertension TIA (transient ischemic attack) Restless leg syndrome Graves disease HLD (hyperlipidemia) Hypothyroidism Former smoker Allergy/AdvReac Type Severity Reaction Status Date / Time Penicillins Allergy Unknown Swelling Verified 11/04/24 13:05 cheese Allergy Hives Verified 11/04/24 13:05 chocolate flavor Allergy Rash Verified 11/04/24 13:05 Family History Mother Hypertension Father Hypertension Surgical History History of removal of tunneled central venous catheter (CVC) with port History of hysterectomy History of appendectomy Social History household members: none Smoking Status: Former smoker alcohol intake: never substance use type: does not use Diagnosis: Amol Mckeon is a 74 year-old female diagnosed with at least clinical stage IIIB (cT3 cN2 M0) squamous cell carcinoma within the right upper lobe centrally with potentially separate tumor nodules within the same lobe status post CT chest with contrast (11/02/2022), bronchoscopy with biopsy (11/10/2022), and PET scan (12/12/2022). From 01/01/2023 ? 02/12/2023 she completed definitive chemoradiation.? History of Present Illness: 11/02/2022: CT chest with contrast was performed.? This demonstrated a focal soft tissue infiltrate seen in the posterior aspect of the right lung apex, this extends to the region of the major fissure.? There is a 3.8 x 4.3 x 3.1 cm soft tissue mass arising from the right infrahilar region extending into the medial aspect of the right lower lobe with almost complete collapse of the right lower lobe.? Neoplastic process should be ruled out.? This causes narrowing of the right interlobar pulmonary artery.? Biopsy is recommended. 11/06/2022: Patient was seen in the emergency room for increased shortness of breath 11/10/2022: Patient completed bronchoscopy.? There is noted to be a partially obstructing mass approximately within the right airway, this is noted at the orifice and the bronchus intermedius and in the right middle lobe.? The mass waslarge and endobronchial, exophytic, friable, polypoid and ulcerated.? The lesionwas not traversed.? Transbronchial needle aspiration of station 7 was performed as well as biopsy of the primary mass.? RBI washings demonstrated malignant cells present likely from non-small cell carcinoma favoring squamous cell carcinoma.? Right mainstem bronchus tumor biopsy demonstrated squamous of carcinoma. 11/23/2022: PFTs done, FEV1 76% predicted, DLCO 59%. 12/12/2022: PET scan was performed.? This demonstrated increased radiopharmaceutical concentration noted in the right thoracic perihilum and subcarinal mediastinum for filling quantitative criteria for malignant transformation.? There is also enhanced tracer uptake noted in the region of theright hemithorax at the pleural interface posteriorly with a maximum SUV of 3.7 which is also concerning for neoplastic transformation.? Enhanced uptake noted in the right hemithorax pleural effusion does not meet quantitative criteria formalignant transformation.? The facilitated uptake noted in the posterior elements of spinous process of both the second and fourth lumbar vertebra do notfill quantitative criteria for viable neoplasm.? No other abnormalities are noted. From 01/01/2023 ? 02/12/2023: received definitive chemoradiation consisting of 6000 cGy delivered to the thoracic disease with weekly carbo/Taxol. She was treated with a VMAT plan using 6 MV photons. Replan was completed for the final 10 fractions due to lung re-expansion. 04/24/2023: PET scan was performed.? This demonstrated increased radiopharmaceutical concentration redefined in the region of the rectal vault which may warrant further investigation with digital exam or direct visualization.? There is diffuse increased radiopharmaceutical concentration current identified in the right lower hemithorax pulmonary parenchyma extending from the right middle to the right lower lobe likely representing an inflammatory process but neoplastic disease is not excluded.? There is interim resolution of the prior defined right thoracic perihilum and mediastinal hypermetabolic foci.? No other new evidence of disease is noted. 09/10/2024: Patient completed CT chest with contrast. This demonstrated probable near complete atelectasis of the right lower lobe with patchy opacities within the right upper lobe and right middle lobe possible representing atelectasis, infection or possible tumor. Small to moderate right-sided pleural effusion. Bullous changes in the right apical lung. 09/30/2024: Patient completed a PET scan. This demonstrated an area of consolidation demonstrated hypermetabolic activity within the anterior right middle lobe demonstrating maximum SUV of 3.9, no significant hypermetabolic uptake noted in the right pleural effusion. No suspicious adenopathy or other evidence of metastatic disease. This area of uptake is indeterminate in etiology may represent recurrent or residual neoplasm or pneumonitis/infection. 10/15/2024: Patient completed thoracentesis. No malignant cells were identified. Radiation Treatment History: 1) From 01/01/2023 ? 02/12/2023: received definitive chemoradiation consisting of 6000 cGy delivered to the thoracic disease with weekly carbo/Taxol. She was treated with a VMAT plan using 6 MV photons. Replan was completed for the final 10 fractions due to lung re-expansion. Interval History: Patient returns for follow-up approximately 21 months after completing definitive chemoradiation for stage III non-small cell lung cancer. She was lost to follow- up for about the last 16 months as she had declined following up with our office. She returns after seeing pulmonary and discussing her recent scans. She does report increased discomfort located from about her right hip all the way up to near her right shoulder extending along her chest wall on thatside, pain varies quite a bit but can be as high as 10 out of 10, she is taking Motrin and Tylenol and reports that this helps quite a bit, she gets this pain worse after she gets off work. Since her last visit she has also developed a frozen shoulder on the right and does not abduct above 90 degrees, she has not seen physical therapy or anybody else to address this. She does report wheezingbut denies having any shortness of breath with exertion. She reports having tried nebulizers and other inhalers in the past which she says has not helped her wheezing at all and so she has stopped all of these measures and does not want to retry them at this time. She denies having cough or hemoptysis. She does not use oxygen. She does not have fever/chills. Swallowing is normal without odynophagia or dysphagia. She denies other sites of pain. Energy level has remained stable but somewhat low. Weight has remained stable. She does complete ADLs without much difficulty denies any other problems or concerns at this time. Review of Systems: A 12-point review of systems was completed and was negative except for what is noted in the HPI/Interval History and by the nurse. Physical Exam: Weight: 130 lbs ECO KARNOFSKY SCORE: 70-80% CONSTITUTIONAL: Well-developed, well-nourished, and in no apparent distress. NECK: Supple, no thyromegaly, and non-tender. Trachea midline. No cervical or supraclavicular adenopathy noted. CARDIAC: Regular rate and rhythm. Normal S1, S2. No murmurs, rubs, or gallops. PULMONARY/CHEST: Lungs are clear to auscultation and percussion bilaterally. Rhonchi in right>left lung bautista, lower right lung bautista with crackles, no wheezing. No increased work of breathing. Hypersensitive to palpation of the right side/flank extending up through the right chest wall up to nearly the top of her ribs. EXTREMITIES: Evidence of right frozen shoulder, no abduction above 90 degrees, pain when trying to move above this level. Otherwise full range of motion in all four extremities. No evidence of edema. PSYCHIATRIC: Appropriate mood and affect for the clinical situation. Imaging: As per HPI Laboratory Data: None Assessment & Plan Assessment/Plan (1) Primary cancer of right upper lobe of lung: (2) Mediastinal lymphadenopathy: PLAN: Plan Assessment: Amol Mckeon is a 74 year-old female diagnosed with at least clinical stage IIIB (cT3 cN2 M0) squamous cell carcinoma within the right upper lobe centrally with potentially separate tumor nodules within the same lobe status post CT chest with contrast (11/02/2022), bronchoscopy with biopsy (11/10/2022), and PET scan (12/12/2022). From 01/01/2023 ? 02/12/2023 she completed definitive chemoradiation.? ? Plan: Patient returns for follow-up about 21 months after completing definitive chemoradiation for stage IIIB non-small cell lung cancer. She was last seen in July 2023 and had since decided not to come back for regular follow-ups. She has been getting CT scans periodically and also a recent PET scan and thoracentesis. We reviewed all the results of these studies and discussed the images with the patient. We reviewed the PET scan prior to treatment, the initial PET scan after treatment which was in April 2023 and all imaging leading up to the most recent scans completed in the last approximately 1 month. This does demonstrate no clear evidence of tumor. She does have persistent atelectasis throughout the right lung as well as persistent pleural effusion that has been present for at least the last 9 months as it was present on the CTfrom February 2024. PET scan does show some consolidation in the right middle lobe with a SUV of 3.9 which is by no means declarative of cancer, in fact her imaging compared to April 2023 does appear much improved and there is no clear evidence that she has disease, of course continue close observation is needed to ensure she does not develop disease recurrence. Thoracentesis completed about 2 to 3 weeks ago also demonstrated no evidence of malignant cells. 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 We reviewed the physiology of the pleural effusion, we reviewed the options of therapeutic thoracenteses and chest tubes, I do believe that with her atelectasis on the right removal of her pleural effusion would likely just causenegative pressure causing it to reaccumulate. We reviewed the potential referral to thoracic surgery to discuss treatment options, she would like to hold off at this time. The pain is manageable with Motrin and Tylenol. She also denies any shortness of breath and does not want to have any inhalers or nebulizers right now. For close observation we recommended completing a CT chest with contrast 3 months from her prior imaging which will be completed in late December and I will plan to have her return in early January for follow-up. Shewas instructed to call with any further questions or concerns in the interim. ? Thank you for allowing me to participate in the management and care of your patient. If I may answer any questions in the interim, please do not hesitate tocontact me at any time. ? Dank Fuchs DO, MS Assistant Program Director, Department of Radiation Oncology [facility] Coding Level of Care Code Off vis,est,level 3 Diagnoses Primary cancer of right upper lobe of lung C34.11 Mediastinal lymphadenopathy R59.0 11/04/24 6136 <Electronically signed by Dank Fuchs DO> Date _ Dank Fuchs DO Cosigner Signature: Date (if applicable) CC: DATA COLLECTION INTERVIEWERTania Marin; Dr. Leidy Beyer, DO ~ [facility] Work Phone: Reason for referral (narrative)No reason for referral information availableWAdams County Regional [facility] Work Phone: Summary Purpose Family History No Family History Records Found Relationship Condition Age at Onset Recorded Date/T loren Not Specified Hypertension Unknown Relationship Condition Age at Onset Recorded Date/T loren mother Hypertension Unknown father Hypertension Unknown Advance Directives No Advanced Directives Records Found Advance Directive Response Recorded Date/ Time Living Will No April 02 9:23am Power of Supervisor [employer] No April 02, 2022 9:23am Advance Directive Response Recorded Date/ Time Name of Medical Power of Supervisor [employer] Room Tati Jeffery April 02, 2022 2:38pm Living Will Yes April 02 2:38pm Power of Supervisor [employer] Yes April 02, 2022 2:38pm Advance Directive Response Recorded Date/ Time Name of Medical Power of Supervisor [employer] Tati Jeffery April 02, 2022 1:38pm Living Will Yes April 02 1:38pm Power of Supervisor [employer] Room Yes April 02, 2022 1:38pm Advance Directive Response Recorded Date/ Time Name of Medical Power of Supervisor [employer] . November 06, 2022 1:20pm Living Will Yes November 06, 2022 1 :20pm Power of Supervisor [employer] Room Yes November 06, 2022 1:20pm Advance Directive Response Recorded Date/ Time Name of Medical Power of Supervisor [employer] Room Nithya-daughter November 06, 2022 3:09pm Living Will Yes November 06, 2022 3 :09pm Power of Supervisor [employer] Room Yes November 06, 2022 3:09pm Advance Directive Response Recorded Date/ Time Name of Medical Power of Supervisor [employer] Nithya-daughter November 06, 2022 3:09pm Name of Medical Power of Supervisor [employer] UNK November 09, 2022 11:08am Living Will Yes November 09, 2022 1 1:08am Power of Supervisor [employer] Yes November 09, 2022 11:08am Advance Directive Response Recorded Date/ Time Name of Medical Power of Supervisor [employer] Nithya-daughter November 06, 2022 3:09pm Name of Medical Power of Supervisor [employer] [facility] UNK November 09, 2022 11:08am Advance Directives on File Yes 2022 2:27pm Name of Medical Power of Supervisor [employer] DTR January 04, 2023 1:41pm Advance Directives No January 02 023 2:41pm Living Will Yes January 04, 2023 1:41pm Power of Supervisor [employer] Yes January 04 1:41pm Advance Directive Response Recorded Date/ Time Name of Medical Power of Supervisor [employer] [facility] Nithya-daughter November 06, 2022 3:09pm Name of Medical Power of Supervisor [employer] UNK November 09, 2022 11:08am Advance Directives No January 09 023 12:53pm Living Will No January 15 4:57am Power of Supervisor [employer] No January 15 023 4:57am Advance Directives on File Yes 2022 12:53pm Name of Medical Power of Supervisor [employer] DTR January 04, 2023 1:41pm Advance Directive Response Recorded Date/ Time Name of Medical Power of Supervisor [employer] Room Nithya-daughter November 06, 2022 3:09pm Name of Medical Power of Supervisor [employer] [facility] UNK November 09, 2022 11:08am Name of Medical Power of Supervisor [employer] Room hugo boudot-da johan January 15, 2023 7:30am Advance Directives No January 09 023 12:53pm Living Will Yes January 15 7:30am Power of Supervisor [employer] Room Yes January 15 023 7:30am Advance Directives on File Yes 2022 12:53pm Name of Medical Power of Supervisor [employer] DTR January 04, 2023 1:41pm Advance Directive Response Recorded Date/ Time Name of Medical Power of Supervisor [employer] Room hugo boudot-da ugbentoner January 15, 2023 7:30am Advance Directives on File Yes 2022 2:51pm Name of Medical Power of Supervisor [employer] DTR January 04, 2023 1:41pm Advance Directives No March 14, 2023 2:51pm Living Will Yes March 19 8:17am Power of Supervisor [employer] Room Yes March 19, 2023 8:17am Advance Directive Response Recorded Date/ Time Advance Directives No April 03, 2023 9:42am Living Will Yes April 03 10:08am Power of Supervisor [employer] Yes April 03, 2023 10:08am Name of Medical Power of Supervisor [employer] hugo [email or web address] prado January 15, 2023 6:30am Advance Directives on File Yes Octob er 2022 9:42am Name of Medical Power of Supervisor [employer] DTR January 04, 2023 12:41pm Advance Directive Response Recorded Date/ Time Advance Directives on File Yes Octob er 2022 9:42am Name of Medical Power of Supervisor [employer] angelic [email or web address] June 11, 2023 10:50am Advance Directives No April 03, 2023 9:42am Living Will Yes June 11 10:50am Power of Supervisor [employer] Room Yes June 11 10:50am Advance Directive Response Recorded Date/ Time Advance Directives on File Yes Octob er 2022 10:42am Name of Medical Power of Supervisor [employer] Room angelic mckeon June 11, 2023 11:50am Advance Directives No April 03, 2023 10:42am Living Will Yes June 11 11:50am Power of Supervisor [employer] Room Yes June 11 11:50am Advance Directive Response Recorded Date/ Time Advance Directives No April 03, 2023 10:42am Chief Complaint and Reason for Visit Chief Complaint UTI WITH SEPSIS Reason for Visit Sepsis UTI (urinary tract infection) Chief Complaint UTI WITH SEPSIS UTI WITH SEPSIS Reason for Visit Elevated lactic acid level Leukocytosis Sepsis UTI (urinary tract infection) Weakness Chief Complaint UTI WITH SEPSIS UTI WITH SEPSIS UTI WITH SEPSIS Reason for Visit Elevated lactic acid level Leukocytosis Sepsis Weakness Chief Complaint SOB RIGHT LUNG MASS W/ RIGHT LOWER MARIANNA COLLAPSE Reason for Visit Anxiety Hemoptysis Lung mass Chief Complaint SOB RIGHT LUNG MASS W/ RIGHT LOWER MARIANNA COLLAPSE RIGHT LUNG MASS W/ RIGHT LOWER MARIANNA COLLAPSE RIGHT LUNG MASS W/ RIGHT LOWER MARIANNA COLLAPSE Reason for Visit Anxiety Atelectasis of right lung Essential hypertension Hemoptysis HLD (hyperlipidemia) Hypothyroidism Lung mass Mass of upper lobe of right lung Right lower lobe lung mass Chronic respiratory failure with hypoxia Chief Complaint SOB RIGHT LUNG MASS W/ RIGHT LOWER MARIANNA COLLAPSE RIGHT LUNG MASS W/ RIGHT LOWER MARIANNA COLLAPSE RIGHT LUNG MASS W/ RIGHT LOWER MARIANNA COLLAPSE RIGHT LUNG MASS W/ RIGHT LOWER MARIANNA COLLAPSE Reason for Visit Anxiety Atelectasis of right lung Essential hypertension Hemoptysis HLD (hyperlipidemia) Hypothyroidism Lung mass Mass of upper lobe of right lung Right lower lobe lung mass Chronic respiratory failure with hypoxia Chief Complaint SOB RIGHT LUNG MASS W/ RIGHT LOWER MARIANNA COLLAPSE RIGHT LUNG MASS W/ RIGHT LOWER MARIANNA COLLAPSE RIGHT LUNG MASS W/ RIGHT LOWER MARIANNA COLLAPSE RIGHT LUNG MASS W/ RIGHT LOWER MARIANNA COLLAPSE Lung Mass Atelectasis Reason for Visit Anxiety Atelectasis of right lung Essential hypertension Hemoptysis HLD (hyperlipidemia) Hypothyroidism Atelectasis of right lung Hemoptysis HLD (hyperlipidemia) Hypothyroidism Atelectasis of right lung Squamous cell carcinoma of lung, stage III Chief Complaint SOB RIGHT LUNG MASS W/ RIGHT LOWER MARIANNA COLLAPSE RIGHT LUNG MASS W/ RIGHT LOWER MARIANNA COLLAPSE RIGHT LUNG MASS W/ RIGHT LOWER MARIANNA COLLAPSE RIGHT LUNG MASS W/ RIGHT LOWER MARIANNA COLLAPSE Lung Mass Atelectasis Personal history of nicotine dependence Personal history of nicotine dependence SQUAMOUS CELL CANCER OF LUNG STAGE Reason for Visit Anxiety Atelectasis of right lung Essential hypertension Hemoptysis HLD (hyperlipidemia) Hypothyroidism Atelectasis of right lung Hemoptysis HLD (hyperlipidemia) Hypothyroidism Atelectasis of right lung Squamous cell carcinoma of lung, stage III Chief Complaint SOB RIGHT LUNG MASS W/ RIGHT LOWER MARIANNA COLLAPSE RIGHT LUNG MASS W/ RIGHT LOWER MARIANNA COLLAPSE RIGHT LUNG MASS W/ RIGHT LOWER MARIANNA COLLAPSE RIGHT LUNG MASS W/ RIGHT LOWER MARIANNA COLLAPSE Lung Mass Atelectasis Personal history of nicotine dependence Personal history of nicotine dependence SQUAMOUS CELL CANCER OF LUNG STAGE NEW-LUNG CA CONSULT - LUNG PORT PLACEMENT LUNG CANCER SCREENING CHEMO ED [facility] - LABS - TAXOL/CARBO OTV MALIGNANT NEOPLASM OF UPPER LOBE RIGHT Insertion, Right possible Left IJ Vascular Port Insertion, Right possible Left IJ Vascular Port Reason for Visit Anxiety Atelectasis of right lung Essential hypertension Hemoptysis HLD (hyperlipidemia) Hypothyroidism Atelectasis of right lung Hemoptysis HLD (hyperlipidemia) Hypothyroidism Atelectasis of right lung Squamous cell carcinoma of lung, stage III Primary cancer of right upper lobe of lung 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, stage III Primary cancer of right upper lobe of lung 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, stage III Encounter for education Primary cancer of right upper lobe of lung Regional lymph node metastasis present Primary cancer of right upper lobe of lung 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, stage III Chief Complaint SOB RIGHT LUNG MASS W/ RIGHT LOWER MARIANNA COLLAPSE RIGHT LUNG MASS W/ RIGHT LOWER MARIANNA COLLAPSE RIGHT LUNG MASS W/ RIGHT LOWER MARIANNA COLLAPSE RIGHT LUNG MASS W/ RIGHT LOWER MARIANNA COLLAPSE Lung Mass Atelectasis Personal history of nicotine dependence Personal history of nicotine dependence SQUAMOUS CELL CANCER OF LUNG STAGE NEW-LUNG CA CONSULT - LUNG PORT PLACEMENT LUNG CANCER SCREENING CHEMO ED [facility] - LABS - TAXOL/CARBO OTV Insertion, Right possible Left IJ Vascular Port Insertion, Right possible Left IJ Vascular Port 1 [facility] - LABS - CARBO/TAXOL OTV MALIGNANT NEOPLASM OF UPPER LOBE RIGHT CELLULITIS, CAT BITE bite Reason for Visit Anxiety Atelectasis of right lung Essential hypertension Hemoptysis HLD (hyperlipidemia) Hypothyroidism Atelectasis of right lung Hemoptysis HLD (hyperlipidemia) Hypothyroidism Atelectasis of right lung Squamous cell carcinoma of lung, stage III Primary cancer of right upper lobe of lung 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, stage III Primary cancer of right upper lobe of lung 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, stage III Encounter for education Primary cancer of right upper lobe of lung Regional lymph node metastasis present Primary cancer of right upper lobe of lung 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, stage III Primary cancer of right upper lobe of lung 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, stage III Cat bite of left forearm with infection Cellulitis Immunosuppressed status Squamous cell carcinoma of lung, stage III Tetanus toxoid vaccination administered at current visit Chief Complaint Personal history of nicotine dependence Personal history of nicotine dependence SQUAMOUS CELL CANCER OF LUNG STAGE NEW-LUNG CA CONSULT - LUNG PORT PLACEMENT LUNG CANCER SCREENING CHEMO ED [facility] - LABS - TAXOL/CARBO OTV Insertion, Right possible Left IJ Vascular Port Insertion, Right possible Left IJ Vascular Port 1 WK - LABS - CARBO/TAXOL OTV CELLULITIS, CAT BITE bite CELLULITIS, CAT BITE OTV 1 WK - LABS - TAXOL/CARBO OTV 1 WK - LABS - TAXOL/CARBO OTV 1WK LABS TOX CHECK/DISCUSS POC OTV Amb Documentation OTV Malignant neoplasm of unspecified part of unspecif 1 MONTH F/U POST RT LUNG Taxol/Carbo 3 M FU- Prev LAB labs for Dr Russell MCALLISTER LOWER LEG PAIN Reason for Visit Primary cancer of ri ght upper lobe of lung 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, stage III Primary cancer of right upper lobe of lung 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, stage III Encounter for education Primary cancer of right upper lobe of lung Regional lymph node metastasis present Primary cancer of right upper lobe of lung 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, stage III Primary cancer of bronchus of right lower lobe Primary cancer of right upper lobe of lung 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, stage III Cellulitis Immunosuppressed status Squamous cell carcinoma of lung, stage III Primary cancer of right upper lobe of lung Encounter for chemotherapy management Primary cancer of right upper lobe of lung Regional lymph node metastasis present Primary cancer of right upper lobe of lung Primary cancer of bronchus of right lower lobe Regional lymph node metastasis present Primary cancer of right upper lobe of lung Primary cancer of bronchus of right lower lobe Regional lymph node metastasis present Primary cancer of right upper lobe of lung Primary cancer of right upper lobe of lung Primary cancer of bronchus of right lower lobe Regional lymph node metastasis present Primary cancer of right upper lobe of lung Squamous cell carcinoma of lung, stage III Stage 2 moderate COPD by GOLD classification Leg pain, diffuse Chief Complaint Personal history of nicotine dependence SQUAMOUS CELL CANCER OF LUNG STAGE NEW-LUNG CA CONSULT - LUNG PORT PLACEMENT LUNG CANCER SCREENING CHEMO ED [facility] - LABS - TAXOL/CARBO OTV Insertion, Right possible Left IJ Vascular Port Insertion, Right possible Left IJ Vascular Port 1 WK - LABS - CARBO/TAXOL OTV CELLULITIS, CAT BITE bite CELLULITIS, CAT BITE OTV 1 WK - LABS - TAXOL/CARBO OTV 1 WK - LABS - TAXOL/CARBO OTV 1WK LABS TOX CHECK/DISCUSS POC OTV Amb Documentation OTV Malignant neoplasm of unspecified part of unspecif 1 MONTH F/U POST RT LUNG Taxol/Carbo 3 M FU- Prev LAB labs for Dr Russell MCALLISTER LOWER LEG PAIN Reason for Visit Primary cancer of ri ght upper lobe of lung 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, stage III Primary cancer of right upper lobe of lung 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, stage III Encounter for education Primary cancer of right upper lobe of lung Regional lymph node metastasis present Primary cancer of right upper lobe of lung 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, stage III Primary cancer of bronchus of right lower lobe Primary cancer of right upper lobe of lung 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, stage III Cellulitis Immunosuppressed status Squamous cell carcinoma of lung, stage III Primary cancer of right upper lobe of lung Encounter for chemotherapy management Primary cancer of right upper lobe of lung Regional lymph node metastasis present Primary cancer of right upper lobe of lung Primary cancer of bronchus of right lower lobe Regional lymph node metastasis present Primary cancer of right upper lobe of lung Primary cancer of bronchus of right lower lobe Regional lymph node metastasis present Primary cancer of right upper lobe of lung Primary cancer of right upper lobe of lung Primary cancer of bronchus of right lower lobe Regional lymph node metastasis present Primary cancer of right upper lobe of lung Squamous cell carcinoma of lung, stage III Stage 2 moderate COPD by GOLD classification Leg pain, diffuse Chief Complaint Insertion, Right pos sible Left IJ Vascular Port Insertion, Right possible Left IJ Vascular Port 1 WK - LABS - CARBO/TAXOL OTV CELLULITIS, CAT BITE bite CELLULITIS, CAT BITE OTV 1 WK - LABS - TAXOL/CARBO OTV 1 WK - LABS - TAXOL/CARBO OTV 1WK LABS TOX CHECK/DISCUSS POC OTV Amb Documentation OTV Malignant neoplasm of unspecified part of unspecif 1 MONTH F/U POST RT LUNG 3 M FU- Prev LAB labs for Dr Russell MCALLISTER LOWER LEG PAIN 3WKS LABS TREATMENT 4 WKS - LABS - REVIEW PET MALIGNANT NEOPLASM OF RIGHT LUNG Reason for Visit Primary cancer of ri ght upper lobe of lung Primary cancer of bronchus of right lower lobe 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, stage III Cellulitis Immunosuppressed status Squamous cell carcinoma of lung, stage III Primary cancer of right upper lobe of lung Encounter for chemotherapy management Primary cancer of right upper lobe of lung Regional lymph node metastasis present Primary cancer of right upper lobe of lung Primary cancer of bronchus of right lower lobe Regional lymph node metastasis present Primary cancer of right upper lobe of lung Primary cancer of bronchus of right lower lobe Regional lymph node metastasis present Primary cancer of right upper lobe of lung Primary cancer of right upper lobe of lung Primary cancer of bronchus of right lower lobe Regional lymph node metastasis present Primary cancer of right upper lobe of lung Squamous cell carcinoma of lung, stage III Stage 2 moderate COPD by GOLD classification Leg pain, diffuse Primary cancer of bronchus of right lower lobe Regional lymph node metastasis present Primary cancer of bronchus of right lower lobe Regional lymph node metastasis present Chief Complaint Malignant neoplasm o f unspecified part of unspecif 1 MONTH F/U POST RT LUNG 3 M FU- Prev LAB labs for Dr Russell MCALLISTER LOWER LEG PAIN 3WKS LABS TREATMENT 4 WKS - LABS - REVIEW PET ABNORMAL PET- COLONOSCOPY 3 MONTH F/U LUNG MALIGNANT NEOPLASM OF RIGHT LUNG Reason for Visit Primary cancer of br onchus of right lower lobe Regional lymph node metastasis present Primary cancer of right upper lobe of lung Squamous cell carcinoma of lung, stage III Stage 2 moderate COPD by GOLD classification Leg pain, diffuse Primary cancer of bronchus of right lower lobe Regional lymph node metastasis present Primary cancer of bronchus of right lower lobe Regional lymph node metastasis present Abnormal PET scan of colon Radiation pneumonitis Primary cancer of bronchus of right lower lobe Chief Complaint 3 M FU- Prev LAB labs for Dr Russell MCALLISTER LOWER LEG PAIN 3WKS LABS TREATMENT 4 WKS - LABS - REVIEW PET ABNORMAL PET- COLONOSCOPY 3 MONTH F/U LUNG MALIGNANT NEOPLASM OF RIGHT LUNG 3 M FU Malignant neoplasm of unspecified part of unspecif 1 MONTH F/U LUNG Reason for Visit Squamous cell carcin jhon of lung, stage III Stage 2 moderate COPD by GOLD classification Leg pain, diffuse Primary cancer of bronchus of right lower lobe Regional lymph node metastasis present Primary cancer of bronchus of right lower lobe Regional lymph node metastasis present Abnormal PET scan of colon Radiation pneumonitis Primary cancer of bronchus of right lower lobe Primary cancer of bronchus of right lower lobe Stage 2 moderate COPD by GOLD classification Radiation pneumonitis Primary cancer of bronchus of right lower lobe Chief Complaint ABNORMAL PET- COLONO SCOPY 3 MONTH F/U LUNG 3 M FU Malignant neoplasm of unspecified part of unspecif 1 MONTH F/U LUNG 3 MO, LABS MALIGNANT NEOPLASM OF RIGHT LUNG Reason for Visit Abnormal PET scan of colon Radiation pneumonitis Primary cancer of bronchus of right lower lobe Primary cancer of bronchus of right lower lobe Stage 2 moderate COPD by GOLD classification Radiation pneumonitis Primary cancer of bronchus of right lower lobe Primary cancer of bronchus of right lower lobe Regional lymph node metastasis present Chief Complaint Admit Date HX OF LUNG CA September 10, 2024 9:19 am Chief Complaint Admit Date HX OF LUNG CA September 10, 2024 9:19 am LUNG September 30, 2024 6:3 2am Follow up Per PCP October 10, 2024 10:20a m Reason for Visit Admit Date Pleural effusion October 10, 2024 10:20a m Shortness of breath October 10, 2024 10:20a m Chronic respiratory failure with hypoxia October 10, 2024 10:20am 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 October 10, 2024 10:20am Stage 2 moderate COPD by GOLD classifica tion October 10, 2024 10:20am Unstable gait October 10, 2024 10:20a m Cough October 10, 2024 10:20a m Chief Complaint Admit Date HX OF LUNG CA September 10, 2024 9:19 am LUNG September 30, 2024 6:3 2am Follow up Per PCP October 10, 2024 10:20a m PLEURAL EFFUSION October 15, 2024 7:40a m Chief Complaint Admit Date HX OF LUNG CA September 10, 2024 9:19 am LUNG September 30, 2024 6:3 2am Follow up Per PCP October 10, 2024 10:20a m PLEURAL EFFUSION October 15, 2024 7:40a m 3 wk fu October 31, 2024 7:29a m Chief Complaint Admit Date HX OF LUNG CA September 10, 2024 9:19 am LUNG September 30, 2024 6:3 2am Follow up Per PCP October 10, 2024 10:20a m PLEURAL EFFUSION October 15, 2024 7:40a m 3 wk fu October 31, 2024 7:29a m 1 wk fu November 04, 2024 12:36 pm Reason for Visit Admit Date Pleural effusion October 10, 2024 10:20a m Shortness of breath October 10, 2024 10:20a m Chronic respiratory failure with hypoxia October 10, 2024 10:20am 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 October 10, 2024 10:20am Stage 2 moderate COPD by GOLD classifica tion October 10, 2024 10:20am Unstable gait October 10, 2024 10:20a m Cough October 10, 2024 10:20a m Pleural effusion October 31, 2024 7:29a m 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 October 31, 2024 7:29am Stage 2 moderate COPD by GOLD classifica tion October 31, 2024 7:29am Mediastinal lymphadenopathy November 04 12:36pm Chief Complaint Admit Date HX OF LUNG CA September 10, 2024 9:19 am LUNG September 30, 2024 6:3 2am Follow up Per PCP October 10, 2024 10:20a m PLEURAL EFFUSION October 15, 2024 7:40a m 3 wk fu October 31, 2024 7:29a m 1 wk fu November 04, 2024 12:36 pm ACUTE - REVIEW SCAN November 04, 2024 2:05p m Reason for Visit Admit Date Pleural effusion October 10, 2024 10:20a m Shortness of breath October 10, 2024 10:20a m Chronic respiratory failure with hypoxia October 10, 2024 10:20am 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 October 10, 2024 10:20am Stage 2 moderate COPD by GOLD classifica tion October 10, 2024 10:20am Unstable gait October 10, 2024 10:20a m Cough October 10, 2024 10:20a m Pleural effusion October 31, 2024 7:29a m 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 October 31, 2024 7:29am Stage 2 moderate COPD by GOLD classifica tion October 31, 2024 7:29am Mediastinal lymphadenopathy November 04 12:36pm Pleural effusion November 04, 2024 12:36 pm Shortness of breath November 04, 2024 12:36 pm 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 November 04, 2024 12:36pm Mediastinal lymphadenopathy November 04 2:05pm 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 November 04, 2024 2:05pm Additional Source Comments INFORMATION SOURCE (unrecogn ized section and content) DATE CREATED AUTHOR 01/21/2021 [facility] DATE CREATED AUTHOR AUTHOR'S ORGANIZ ATION 11/14/2022 [facility] DATE CREATED AUTHOR AUTHOR'S ORGANIZ ATION 12/27/2024 [facility] Goals (unrecognized section and content) Goals may be documented in a n alternate sectionGoals may be documented in an alternate sectionGoals may be documented in an alternate sectionGoals may be documented in an alternate sectionGoals may be documented in an alternate sectionGoals may be documented in an alternate sectionGoals may be documented in an alternate sectionGoals may be documented in an alternate sectionGoals may be documented in an alternate sectionGoals may be documented in an alternate section Care Teams (unrecognized sec tion and content) Team Status: Active Member Role Status Dates Dr. Leidy Beyer , DO Family Provider Active Dr. Michael Roberson DO Primary Care Provider Active Team Status: Active Member Role Status Dates Dr. Leidy Beyer DO Primary Care Provider Active Dr. Jordana Velasco DO Emergency Provider Active Dr. Satinder Lamb MD Admit Provider, A ttending Provider, Other Provider Active Team Status: Inactive Member Role Status Dates Dr. Leidy Beyer DO Primary Care Provider Active Dr. Jordana Velasco , DO Emergency Provider Active Dr. Satinder Lamb MD Admit Provider, Attending Provi jerry Active Team Status: Inactive Member Role Status Dates Dr. Leidy Beyer DO Primary Care Provider Active Dr. Michael Roberson DO Attending Provider Active Team Status: Inactive Member Role Status Dates Dr. Michael Roberson DO Primary Care Provider, Attendin g Provider Active Brush Head Maker Relationship Specialty Start Date End Date Michael Roberson DO [address] [place] [address] PCP - General Family Medicine 07/05/22 Brush Head Maker Relationship Specialty Start Date End Date Michael Roberson DO [address] [place] [address] PCP - General Family Medicine 07/05/22 Team Status: Active Member Role Status Dates Dr. Leidy Beyer DO Family Provider Active Dr. Leidy Beyer DO Primary Care Provider Active Team Status: Active Member Role Status Dates Dr. Michael Roberson DO Primary Care Provider Active SHAHLA Cervantes Attending Provider, Referring Prov ider Active Team Status: Active Member Role Status Dates Dr. Raffi Grace MD Emergency Provider Active Dr. Leidy Beyer DO Primary Care Provider Active Dr. Kurt Larose MD Other Provider Active Dr. Oskar Huntley MD Admit Provider, Attending Provider Active Team Status: Active Member Role Status Dates Dr. Raffi Grace MD Emergency Provider Active Dr. Leidy Beyer DO Primary Care Provider Active Dr. Oskar Huntley MD Admit Provi jerry, Attending Provider, Other Provider Active Dr. Kurt Larose MD Other Provider Active Dr. Miguel Ángel Wells MD Other Provider Active Dr. Bobby Brown , DO Other Provider Active Dr. Bridger Richard MD Other Provider Active Ese Marin DATA COLLECTION INTERVIEWER, DATA COLLECTION INTERVIEWER-C Other Provider Active Team Status: Active Member Role Status Dates Dr. Raffi Grace MD Emergency Provider Active Dr. Leidy Beyer , DO Primary Care Provider Active Dr. Oskar Huntley MD Admit Provider, Other Pro vider Active Dr. Kurt Larose MD Attending Provider, Other Pro vider Active Dr. Miguel Ángel Wells MD Other Provider Active Dr. Bobby Arciniega , DO Other Provider Active Dr. Bridger Richard MD Other Provider Active Ese Marin DATA COLLECTION INTERVIEWER, DATA COLLECTION INTERVIEWER-C Other Provider Active Team Status: Inactive Member Role Status Dates Dr. Raffi Grace MD Emergency Provider Active Dr. Leidy Beyer , DO Primary Care Provider Active Dr. Oskar Huntley MD Admit Provider, Attending Provider Active Dr. Kurt Larose MD Other Provider Active Dr. Miguel Ángel Wells MD Other Provider Active Dr. Bobby Arciniega , DO Other Provider Active Dr. Bridger Richard MD Other Provider Active Ese Marin DATA COLLECTION INTERVIEWER, DATA COLLECTION INTERVIEWER-C Other Provider Active Team Status: Inactive Member Role Status Dates Dr. Michael Roberson , DO Primary Care Provider Active Minnie Luna NP-C Attending Provider, Referring Prov ider Active Team Status: Inactive Member Role Status Dates Dr. Leidy Beyer , DO Primary Care Provider, Referring P rovider Active Dr. Kurt Larose MD Attending Provider Active Team Status: Active Member Role Status Dates Dr. Leidy Beyer DO Primary Care Provider Active Dr. Kurt Larose MD Attending Provi jerry, Referring Provider, Other Provider Active Team Status: Inactive Member Role Status Dates Dr. Leidy Beyer DO Primary Care Provider Active Dr. Kurt Larose MD Attending Provider, Referring Provider Active Team Status: Active Member Role Status Dates Dr. Leidy Beyer DO Primary Care Provider Active Dr. Kurt Larose MD Referring Provider, Other Pro vider Active Dr. Miguel Ángel Wells MD Attending Provider Active Team Status: Active Member Role Status Dates Dr. Leidy Beyer , DO Primary Care Provider Active Dr. Kurt Larose MD Attending Provider, Referring Provider Active Team Status: Active Member Role Status Dates Dr. Raffi Grace MD Emergency Provider Active Dr. Leidy Beyer DO Primary Care Provider Active Dr. Oskar Huntley MD Admit Provi jerry, Referring Provider, Other Provider Active Dr. Kurt Larose MD Attending Provider, Other Pro vider Active Dr. Miguel Ángel Wells MD Other Provider Active Dr. Bobby Arciniega DO Other Provider Active Dr. Bridger Richard MD Other Provider Active Ese Marin DATA COLLECTION INTERVIEWER, DATA COLLECTION INTERVIEWER-C Other Provider Active Team Status: Inactive Member Role Status Dates Dr. Leidy Beyer DO Primary Care Provider, Referring P rovider Active Dr. Srinivasa Francisco MD Attending Provider Active Team Status: Inactive Member Role Status Dates Dr. Leidy Beyer DO Primary Care Provider, Referring P rovider Active Dr. Dank Fuchs DO Attending Provider Active Team Status: Inactive Member Role Status Dates Dr. Leidy Beyer DO Primary Care Provider, Referring P rovider Active Dr. Roberto Guidry MD Attending Provider Active Team Status: Active Member Role Status Dates Dr. Leidy Beyer DO Primary Care Provider Active Dr. Dank Fuchs DO Attending Provider, Referring P rovider Active Team Status: Inactive Member Role Status Dates Dr. Leidy Beyer DO Primary Care Provider, Referring P rovider Active Zayda Walter DATA COLLECTION INTERVIEWER, DATA COLLECTION INTERVIEWER-C Attending Provider Active Team Status: Active Member Role Status Dates Dr. Leidy Beyer DO Primary Care Provider Active Dr. Roberto Guidry MD Attending Provide r, Referring Provider, Other Provider Active Team Status: Active Member Role Status Dates Dr. Leidy Beyer DO Primary Care Provider Active Dr. Dank Fuchs DO Attending Provider Active Ese Marin DATA COLLECTION INTERVIEWER, DATA COLLECTION INTERVIEWER-C Referring Provider Active Team Status: Inactive Member Role Status Dates Dr. Leidy Beyer DO Primary Care Provider Active Dr. Srinivasa Francisco MD Attending Provider, Referrin g Provider Active Team Status: Inactive Member Role Status Dates Dr. Leidy Beyer DO Primary Care Provider Active Dr. Roberto Guidry MD Attending Provider, Referring P rovider Active Team Status: Inactive Member Role Status Dates Dr. Leidy Beyer DO Primary Care Provider Active Dr. Dank Fuchs DO Attending Provider, Referring P rovider Active Team Status: Active Member Role Status Dates Dr. Leidy Beyer DO Primary Care Provider Active Dr. Conner Mcclure DO Emergency Provider Active Dr. Michelle Olea MD Attending Provider Active Team Status: Active Member Role Status Dates Dr. Leidy Beyer DO Primary Care Provider Active Dr. Conner Mcclure DO Emergency Provider Active Dr. Michelle Olea MD Admit Provider, Attending Prov ider Active Team Status: Inactive Member Role Status Dates Dr. Leidy Beyer DO Primary Care Provider Active Dr. Conner Mcclure DO Emergency Provider Active Dr. Michelle Olea MD Admit Provider, Other Provider Active Dr. Michael Pina , DO Attending Provider Active Team Status: Inactive Member Role Status Dates Dr. Leidy Beyer DO Primary Care Provider, Referring P rovider Active Dr. Miguel Ángel Wells MD Attending Provider Active Team Status: Active Member Role Status Dates Dr. Leidy Beyer DO Primary Care Provider Active Dr. Conner Mcclure DO Emergency Provider Active Dr. Michelle Olea MD Admit Provider, Other Provider Active Dr. Michael Pina , DO Attending Provider, Other Pro vider Active Team Status: Active Member Role Status Dates Dr. Leidy Beyer DO Primary Care Provider Active Dr. Dank Fuchs , DO Attending Provider Active Team Status: Active Member Role Status Dates Dr. Leidy Beyer DO Primary Care Provider Active Dr. Solomon Correa MD Attending Provider Active Team Status: Inactive Member Role Status Dates Dr. Leidy Beyer DO Primary Care Provider Active Dr. Srinivasa Franicsco MD Attending Provider, Referrin g Provider Active Dr. Michael Roberson , DO Other Provider Active Team Status: Inactive Member Role Status Dates Dr. Leidy Beyer DO Primary Care Provider Active Dr. Miguel Ángel Wells MD Attending Provider, Referring Pr ovider Active Team Status: Active Member Role Status Dates Dr. Leidy Beyer DO Primary Care Provider Active Dr. Miguel Ángel Wells MD Attending Provider, Referring Pr ovider Active Team Status: Active Member Role Status Dates Dr. Leidy Beyer DO Primary Care Provider Active Dr. Solomon Correa MD Attending Provider Active Dr. Miguel Ángel Wells MD Referring Provider Active Team Status: Inactive Member Role Status Dates Dr. Leidy Beyer DO Primary Care Provider, Attending P rovider Active Team Status: Active Member Role Status Dates Dr. Leidy Beyer DO Primary Care Provider, Referring P rovider Active Dr. Roberto Guidry MD Attending Provider, Other Provi jerry Active Team Status: Inactive Member Role Status Dates Dr. Leidy Beyer DO Primary Care Provider, Referring P rovider Active Ese Marin DATA COLLECTION INTERVIEWER, DATA COLLECTION INTERVIEWER-C Attending Provider Active Brush Head Maker Relationship Specialty Start Date End Date Michael Roberson DO [address] [place] [address] PCP - General Family Medicine 07/05/22 Team Status: Inactive Member Role Status Dates Dr. Leidy Beyer DO Primary Care Provider Active Start: August 19, 2024 End: August 19, 2024 Dr. Michael Roberson DO Attending Provider Active Start: August 19, 2024 End: August 19, 2024 Team Status: Active Member Role Status Dates Dr. Leidy Beyer DO Primary Care Provider Active Team Status: Inactive Member Role Status Dates Dr. Leidy Beyer DO Primary Care Provider Active Start: September 10, 2024 End: September 10, 2024 Dr. Michael Roberson DO Attending Provider Active Start: September 10, 2024 End: September 10, 2024 Dr. Michael Roberson DO Referring Provider Active Start: September 10, 2024 End: September 10, 2024 Team Status: Inactive Member Role Status Dates Dr. Leidy Beyer DO Primary Care Provider Active Start: September 30, 2024 End: September 30, 2024 Dr. Michael Roberson DO Attending Provider Active Start: September 30, 2024 End: September 30, 2024 Dr. Michael Roberson DO Referring Provider Active Start: September 30, 2024 End: September 30, 2024 Team Status: Inactive Member Role Status Dates Dr. Leidy Beyer DO Primary Care Provider Active Start: October 10, 2024 End: October 10, 2024 Dr. Leidy Beyer DO Referring Provider Active St art: October 10, 2024 End: October 10, 2024 Ese Marin DATA COLLECTION INTERVIEWER, DATA COLLECTION INTERVIEWER-C Attending Provider Active Start: October 10, 2024 End: October 10, 2024 Team Status: Inactive Member Role Status Dates Dr. Leidy Beyer DO Primary Care Provider Active Start: October 15, 2024 End: October 15, 2024 Ese Marin NP, NP-C Attending Provider Active Start: October 15, 2024 End: October 15, 2024 Ese Marin NP DATA COLLECTION INTERVIEWER-C Referring Provider Active Start: October 15, 2024 End: October 15, 2024 Team Status: Inactive Member Role Status Dates Dr. Leidy Beyer DO Primary Care Provider Active Start: October 31, 2024 End: October 31, 2024 Dr. Leidy Beyer DO Referring Provider Active St art: October 31, 2024 End: October 31, 2024 Ese Marin NP DATA COLLECTION INTERVIEWER-C Attending Provider Active Start: October 31, 2024 End: October 31, 2024 Team Status: Inactive Member Role Status Dates Dr. Leidy Beyer DO Primary Care Provider Active Start: November 04, 2024 End: November 04, 2024 Dr. Leidy Beyer DO Referring Provider Active St art: November 04, 2024 End: November 04, 2024 Ese Marin NP, NP-C Attending Provider Active Start: November 04, 2024 End: November 04, 2024 Team Status: Inactive Member Role Status Dates Dr. Leidy Beyer DO Primary Care Provider Active Start: November 04, 2024 End: November 04, 2024 Dr. Leidy Beyer DO Referring Provider Active St art: November 04, 2024 End: November 04, 2024 Dr. Dank Fuchs DO Attending Provider Active Start: November 04, 2024 End: November 04, 2024 Team Status: Inactive Member Role Status Dates Dr. Leidy Beyer DO Primary Care Provider Active Start: November 20, 2024 End: November 20, 2024 Dr. Michael Roberson DO Attending Provider Active Start: November 20, 2024 End: November 20, 2024 Source Comments (unrecognize d section and content) In the event this informatio n is protected by the Federal Confidentiality of Alcohol and Drug Abuse Patient Records regulations: The Federal rules restrict any use of the information to criminally investigate or prosecute any alcohol or drug abuse patient.[facility] the event this information is protected by the Federal Confidentiality of Alcohol and Drug Abuse Patient Records regulations: The Federal rules restrict any use of the information to criminally investigate or prosecute any alcohol or drug abuse patient.[facility] the event this information is protected by the Federal Confidentiality of Alcohol and Drug Abuse Patient Records regulations: The Federal rules restrict any use of the information to criminally investigate or prosecute any alcohol or drug abuse patient.[facility] Reason for Visit (unrecogniz ed section and content) Reason Comments Cough Congestion, sore thr oat, diarrhea, wheezing x 2 days Reason Comments Results FOR RECORDS PERTAINING TO PATIENTS WHO ARE [...] BE BASED ON THE PRIMARY CLINICAL RECORDS. [employer] [facility]. provides no warranty or guarantee of the accuracy or completeness of information in this document.
== END | disposition home or self-care (01) ==
LOC: CT 12:26
PROVIDERS: PCP Family Medicine; Referring Provider Nurse Practitioner Acute Care; Visit Provider Nurse Practitioner Acute Care
DX: R59.0 Localized enlarged lymph nodes (principal)
CPT/HCPCS: 71260; Q9967

== ENCOUNTER → 2025-01-07 | Outpatient (CLI) | payer MEDICARE, MEDICAID, SELFPAY ==
--- NOTE | 2025-01-07 14:29 | ST.MBS ---
Modified Barium Swallow Patient Information Study Date: 01/07/25 Study Time: 13:00 Direct Billable Minutes: 98 Total Minutes procedure & reportin Diagnosis: Dysphagia R13.10 Referring Physician: Dank Fuchs Reason for Referral: Assess swallow function, assess risk for aspiration, and determine recommendations for any necessary dysphagia interventions. Medical History: Oncology PMH per Radiation Oncology Progress Note 01/01/2025: ?Farida Mckeon is a 74 year-old female diagnosed with at least clinical stage IIIB (cT3 cN2 M0) squamous cell carcinoma within the right upper lobe centrally with potentially separate tumor nodules within the same lobe status post CT chest with contrast (11/02/2022), bronchoscopy with biopsy (11/10/2022), and PET scan (12/12/2022). From 01/01/2023 ? 02/12/2023 she completed definitive chemoradiation.? Dysphagia hx: Swallowing difficulty onset in the past 3-4 months. Patient reports frequent coughing w/ food/drink is her normal. She reports having the most difficulty with small pills and certain small bites of foods, such as licorice. She reports munching throughout her day, and admits to not being a good eater. She has always eaten 1X/day; however, when she was done w/ chemoradiation treatment she intentionally ate more afterwards due to weight loss. She does not follow w/ the janitorial account manager. In addition to PMH below, pt reports osteoarthritis of the neck. Radiation oncologist, Dr. Fuchs, recommended dysphagia evaluation w/ TRANSFORMATION CONSULTANT due to physician?s concern for aspiration risk given clinical findings in right lung from interval CT (?stability of the right lung findings including increased lung collapse, pleural effusion, no masses or enlarged lymph nodes are appreciated?). BSE 01/06/2025 revealed frequent coughing w/ both liquid and solid trials. She was recommended for Easy to Chew (Level 7) textures / Thin (Level 0) liquids w/ the following compensatory strategies: Small sips; Effortful, multiple swallows each sip; Small bites; Slow rate; Sit upright during and 30min after meals. TRANSFORMATION CONSULTANT recommended this MBSS to further assess concerns for dysphagia and aspiration due to frequent coughing w/ po trials. Medical History: Difficulty swallowing Pleural effusion Primary cancer of right upper lobe of lung Chronic respiratory failure with hypoxia Stage 2 moderate COPD by GOLD classification Low TSH level Elevated troponin Radiation pneumonitis Abnormal PET scan of colon Immunosuppressed status Cellulitis Atelectasis of right lung Anxiety Abnormal cardiac enzyme level Port-A-Cath in place Encounter for chemotherapy management Primary cancer of bronchus of right lower lobe Tetanus toxoid vaccination administered at current visit Cat bite of left forearm with infection 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, stage III Loss of hearing Cataract Wears dentures Essential hypertension TIA (transient ischemic attack) Restless leg syndrome Graves disease HLD (hyperlipidemia) Hypothyroidism Former smoker (quit in 2014) ALLERGIES: CHOCOLATE FLAVOR, CERTAIN CHEESES. Current Diet Ordered: Easy to Chew textures / Thin liquids Dentition: Upper Dentures and Lower Dentures Mental Status: WNL Respiratory Status: Oxygenating on Room Air Penetration-Aspiration Scale Penetration-Aspiration Scale: OBJECTIVE ASSESSMENT OF SWALLOW FUNCTION (QUANTITATIVE ? PER TRIAL): PENETRATION / ASPIRATION SCALE ([place]): 1 = does not enter airway 2 = enters airway/above vocal folds/ejected 3 = enters airway/above vocal folds/not ejected 4 = enters airway/contacts vocal folds/ejected 5 = enters airway/contacts vocal folds/not ejected 6 = enters airway/below vocal folds/ejected 7 = enters airway/below vocal folds/not ejected despite effort 8 = enters airway/below vocal folds/no effort VIDEOFLOROSCOPIC SCALE SCORE ([place]): Grade I = aspiration of material that has penetrated into the laryngeal vestibule, intact cough reflex Grade II = aspiration < 10 % of the bolus, intact cough reflex Grade III = aspiration of < 10 % of the bolus, reduced cough reflex or aspiration of > 10 % of the bolus, intact cough reflex Grade IV = aspiration of > 10 % of the bolus, reduced cough reflex Penetration-Aspiration Scale Score Thin Liquid via teaspoon: Result: 3= enters airways/above vocal folds/not ejected Thin Liquid via teaspoon Trial 2: Result: 2= enter airway/above vocal folds/ejected Thin Liquid via sequential sips: cup: Result: 5= enters airways/contacts vocal folds/not ejected Thin Liquid via small single sip: cup: Result: 3= enters airways/above vocal folds/not ejected [place] Thick Liquid via large single sip: cup: Result: 2= enter airway/above vocal folds/ejected Pudding via teaspoon: Result: 1= does not enter airway Comment: Esophageal screen - Minimal retention in the upper esophagus; otherwise, complete clearance. 1/2 Cookie: Result: 1= does not enter airway Comment: Esophageal screen - Mild retention in the lower esophagus. Thin Liquid via single sip: straw: Result: 3= enters airways/above vocal folds/not ejected Comment: Cued throat clear and re-swallow (pt coughed) = somewhat effective. Esophageal screen - Liquid wash mostly cleared esophageal retention of cookie. Thin Liquid via single sip: straw Effortful swallow: Result: 3= enters airways/above vocal folds/not ejected Thin Liquid via single sip: straw Effortful swallow Trial 2: Result: 3= enters airways/above vocal folds/not ejected Thin Liquid via small single sip: cup Chin tuck: Result: 3= enters airways/above vocal folds/not ejected Oral Phase Labial Seal: No Labial Escape Tongue Control During Bolus Hold: Posterior escape of less than half of bolus Bolus Preparation/Mastication: Disorganized chewing/mashing with solid pieces of bolus unchewed (Small pieces of cookie un-chewed) Bolus Transport/Lingual Motion: Delayed initiation of tongue motion Oral Residue: Residue collection on oral structures Pharyngeal Phase Initiation of Pharyngeal Swallow: Bolus head at posterior laryngeal surgace of epiglottis Soft Palate Elevation: Trace column of contrast/air between soft palate and pharyngeal wall Laryngeal Elevation: Partial superior movement thyroid cart/partial apprx aryt-epig petiole Anterior Hyoid Excursion: Partial anterior movement Epiglottic Movement: Complete inversion Laryngeal Vestibule Closure at Height of Swallow: Incomplete; narrow column of air/contrast in laryngeal vestibule Pharyngeal Stripping Wave: Present - diminished Pharyngoesophageal Segment Opening: Parital distension and partial duration; parital obstruction of flow Tongue Base Retraction: Narrow column of contrast between tongue base & post. pharyngeal wall Pharyngeal Residue: Collection of residue within or on pharyngeal structures Esophageal Phase Esophageal Clearance: Esophageal retention w/ retrograde flow through pharyngoesophageal seg Diagnosis/Impression Diagnosis: Mild-mod oropharyngeal dysphagia R13.12; Mild esophageal dysphagia R13.14 MBS Impressions: The oral phase is primarily marked by... -Posterior loss of <1/2 of some large sips to the pyriform sinuses prior to swallow onset. -Delayed tongue motion for A-P transport. -Small pieces of cookie appeared un-chewed. The pharyngeal phase is primarily marked by... -Mildly decreased pharyngeal motility due to decreased TB retraction and pharyngeal stripping wave most noticeable w/ cookie trial. Independent use of a second swallow cleared majority of mild pharyngeal residue of cookie. -Decreased airway closure during the swallow due to decreased laryngeal elevation and anterior hyoid excursion. -Laryngeal penetration of thin liquids w/o complete ejection. Deep laryngeal penetration of large sequential sips of thin liquids to the vocal folds w/o complete ejection. No aspiration observed; however, pt is at high risk for post prandial aspiration given liquids remaining in the laryngeal vestibule after the swallow. Single sips, effortful swallow, and intermittent cough and re-swallow are most effective in reducing aspiration risk. The esophageal phase is primarily marked by... -Retention of cookie in the lower esophagus, which cleared w/ liquid wash. -Retention of liquids in the upper esophagus w/ retrograde flow through the UES to the pyriform sinuses. Recommendations Diet: Easy to Chew Textures and Thin Liquids Compensatory Strategies: Small Bites (Chew thoroughly), Small Sips (Sips one at a time, effortful swallow, intermittent throat clear/cough and re-swallow), Slow Rate, Alternate bites/solids and sips/liquids, Sitting upright and Remain sitting upright for 30 minutes after PO intake Recommend Repeat Modified Barium Swallow: TBD Need for Skilled Speech Therapy Services: Yes Comment: Pt agreeable to 1 OP dysphagia therapy follow up session to learn oropharyngeal exercise program. Will re-educate strategies to decrease risk from aspiration and reflux aspiration, as well as train the pt in lingual resistance exercises, Li, effortful swallow, Delia, and Shaker, if tolerated. Education Completed: 1. Described result of evaluation., 2. Pt understands evaluation & agrees with goals and treatment plan. and 7. Pt requires further education on strategies & risks. Comment: At end of BSE yesterday, pt had some difficulty w/ [id number] leaving session. She then commented about chronic R sided weakness since her cancer treatment as she was leaving the bedside swallowing evaluation (BSE). She reports the onset was gradual and it occurred during chemotherapy. Unilateral weakness was also observed with HANDBAG FRAMES INSPECTOR during this BSE. TRANSFORMATION CONSULTANT mentioned this to Dr. Fuchs after the BSE, who stated a neuro referral could be made if pt is agreeable. Pt is politely declining neurology consult at this time. She did mention that she has made her PCP aware of unilateral weakness. After this MBSS, TRANSFORMATION CONSULTANT recommended GI consult due to esophageal retention cookie in the lower esophagus, as well as esophageal retention of liquids in the upper esophagus w/ retrograde flow through the UES to the pyriform sinuses. Pt politely declined GI consult. Status Active ST Patient: Active Contact Information [facility] Speech Therapy:: Viviana Figueroa M.A. CCC-TRANSFORMATION CONSULTANT? Speech-Language Pathologist?? [facility] [address] [place] [address]? [email or web address]?? [phone]
== END | disposition home or self-care (01) ==
LOC: RAD 12:22
PROVIDERS: PCP Family Medicine; Referring Provider Student in an Organized Health Care Education/Training Program; Visit Provider Student in an Organized Health Care Education/Training Program
DX: C34.11 Malignant neoplasm of upper lobe, right bronchus or lung (principal)
CPT/HCPCS: 74230; 92611

== ENCOUNTER 2025-01-09 11:00 | Outpatient (RCR) | payer MEDICARE, MEDICAID, SELFPAY ==
--- NOTE | 2025-01-06 14:49 | HP.SP.EVAL ---
Visit History Visit Info Date of Eval: 01/06/25 Today is Visit #: 1 Motorcycle Subassembly Repairer: ARNOLDO History Attending Doctor: Referring Doctor: Reason for Referral: DYSPHAGIA/RX SCANNED IN Medical Diagnosis: Dysphagia R13.10 Date of Onset of Diagnosis: 01/01/2025 Previous speech therapy: No Other Relevant Medical History/Diagnoses/Surgery: Oncology PMH per Radiation Oncology Progress Note 01/01/2025: ?Farida Mckeon is a 74 year-old female diagnosed with at least clinical stage IIIB (cT3 cN2 M0) squamous cell carcinoma within the right upper lobe centrally with potentially separate tumor nodules within the same lobe status post CT chest with contrast (11/02/2022), bronchoscopy with biopsy (11/10/2022), and PET scan (12/12/2022). From 01/01/2023 ? 02/12/2023 she completed definitive chemoradiation.? Radiation oncologist, Dr. Fuchs, recommended dysphagia evaluation w/ COORDINATOR MINING PRODUCTS due to physician?s concern for aspiration risk given clinical findings in right lung from interval CT (?stability of the right lung findings including increased lung collapse, pleural effusion, no masses or enlarged lymph nodes are appreciated?). Patient report for dysphagia hx: Swallowing difficulty onset in the past 3-4 months. Patient reports frequent coughing w/ food/drink is her normal. She reports having the most difficulty with small pills and certain small bites of foods, such as licorice. She reports munching throughout her day, and admits to not being a good eater. She has always eaten 1X/day; however, when she was done w/ chemoradiation treatment she intentionally ate more afterwards due to weight loss. She does not follow w/ the hair designer. In addition to PMH below, pt reports osteoarthritis of the neck. Medical History: Difficulty swallowing Pleural effusion Primary cancer of right upper lobe of lung Chronic respiratory failure with hypoxia Stage 2 moderate COPD by GOLD classification Low TSH level Elevated troponin Radiation pneumonitis Abnormal PET scan of colon Immunosuppressed status Cellulitis Atelectasis of right lung Anxiety Abnormal cardiac enzyme level Port-A-Cath in place Encounter for chemotherapy management Primary cancer of bronchus of right lower lobe Tetanus toxoid vaccination administered at current visit Cat bite of left forearm with infection 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, stage III Loss of hearing Cataract Wears dentures Essential hypertension TIA (transient ischemic attack) Restless leg syndrome Graves disease HLD (hyperlipidemia) Hypothyroidism Former smoker (quit in 2014) ALLERGIES: CHOCOLATE FLAVOR, CERTAIN CHEESES. Smoking Status: Former smoker Pain Is pain an issue with your current prescribed condition?: No Personal Preferred language: Cook Islander Patient Allergies Allergies Allergies: Allergies Penicillins Allergy (Unknown, Verified 01/01/25 10:31) Swelling shots only cause reaction, oral ok cheese Allergy (Verified 01/01/25 10:31) Hives chocolate flavor Allergy (Verified 01/01/25 10:31) Rash Subjective Dysphagia Symptoms Reported Symptoms/Problems with: Coughing, Difficulty Swallowing Solids, Difficulty Swallowing Liquids, Food gets stuck and Weight Loss Current Diet Solids Current Diet: Regular Current Diet Liquids Current Liquids: Thin Objective Dysphagia Administered by Administered by: Self Thin Liquids Oral Transit: Delay > 1 seconds Bolus clearance: fully cleared Cough: weak reflexive cough Comments: Liquids: Sequential sips via bottle w/ delayed coughing, sequential sips via straw w/ delayed coughing, single sips via straw w/ coughing episode after 1 of 2 sips, single sips via bottle w/ coughing episode after 1 of 2 sips. Cued pt for single, effortful, multiple swallows. She completed 4 swallows w/ use fo 3-4 swallows per sip w/ delayed coughing ~30 seconds after completion of sips. Cued pt for breath hold then swallow, no overt s/s of aspiration w/ 1 of 1 trial, but pt felt it was harder to initiate her swallow. Pt's breath audible at basline, but increased audibility of breathing after trials. Pt admits to feeling more SOB after eating and drinking at times. Pureed Oral Transit: WNL Bolus clearance: fully cleared Cough: weak reflexive cough Comments: Applesauce via tsp: Coughing after 2 of 5 trials, multiple swallows per bite. Regular Oral Transit: WNL Bolus clearance: fully cleared Cough: none observed/unable to assess Comments: Pretzels: Timely mastication, no overt s/s of aspiration, mild sensation of retention, which cleared w/ independent use of liquid wash w/ coffee. Swallowing Impairment Contributing Factors to Swallowing Impairment: Delayed Swallow Initiation and Reduced Laryngeal Excursion Impact Impact on Safety & Functioning: Risk for Aspiration Recommendations Modified Barium Swallow/Cookie Swallow Recommended: Yes Swallowing Treatment: Yes Diet Texture Recommendations Solids: Easy to Chew (Level 7) Liquids: Thin (Level 0) Other: Small sips; Effortful, multiple swallows each sip; Small bites; Slow rate; Sit upright during and 30min after meals Results Swallowing Within Normal Limits: No Swallowing Diagnosis: Oropharyngeal Phase Dysphagia (R13.12) Severity: Moderate CAMPUS RECRUITING INTERN V Trigeminal Nerve V Trigeminal Nerve Response: Intact VII Facial Nerve VII Facial Nerve Result: Impaired Comment: Impaired taste since chemotherapy X Vagus Nerve X Vagus Nerve Result: Impaired Comment:: Poor gag, hoarseness, palate w/ R sided deviation XII Hypoglossal Nerve XII Hypoglossal Nerve Result: Impaired Comment:: Tongue deviation R, generalized lingual weakness Swallowing Performance Scale Swallowing Performance Scale Swallowing Performance Scale Result: 5 Moderate Reference: Neuro-QoL instrument Radiation Oncology Patient FOIS Functional Oral Intake Scale Total oral diet with multiple consistencies, but requiring special preparation or compensations: Level 5 Other Other EAT-10: -: Eating Assessment Tool (EAT-10) ? Score = 7 Score of 3 or more indicates there may be a swallowing problem or dysphagia. Patient Comment: -: Pt had some difficulty w/ sit to stand leaving session and commented about chronic R sided weakness while leaving today's bedside swallowing evaluation (BSE). No patient reports of acute onset of unilateral weakness. Unilateral weakness was also observed with CAMPUS RECRUITING INTERN during this BSE. COORDINATOR MINING PRODUCTS mentioned this to physician, who stated a neuro referral could be made if pt is agreeable. COORDINATOR MINING PRODUCTS to see pt tomorrow for MBSS. Will inquire about onset (timeframe and nature of onset) of unilateral weakness and see if pt would be open to neurology referral from physician. Plan Plan Plan: Will recommend the patient for skilled outpatient dysphagia therapy to address moderate oropharyngeal dysphagia. Speech therapy POC to include MBSS tomorrow. MBSS will provide recommendations for oropharyngeal exercise program, diet texture recommendations, aspiration precautions, and compensatory strategies to decrease risk for aspiration. Additionally, OP ST will provide ongoing assessment of diet tolerance. Without skilled ST services, the patient is at increased risk for aspiration. Recommendations Treatment Warranted: Yes Treatment Warranted: Dysphagia Progress Prognosis: Fair Frequency Additional (Frequency): Frequency and duration of treatment TBD following MBSS planned 01/07/2025. Goals that are Established Determination:: Goals will be added/modified as deemed necessary and appropriate. Therapy will be discontinued when results of re-evaluation indicate therapy is no longer needed or lack of progress has been documented. Goal #1-5 Goal #1: The patient will consume least restrictive diet textures without overt s/s of aspiration with 90% acc with minimal verbal cues to utilize strategies to facilitate safe po intake. Goal #2: The patient will participate in MBS study to objectively assess swallow function and provide recommendations for safest, least restrictive diet textures and compensatory strategies to reduce risk for aspiration. Goal #3: The patient will complete an oropharyngeal exercise program X10-15 reps, 3-5X daily with minimal verbal cues to improve strength, ROM, and coordination of swallowing mechanism. Education Patient has Indicated that the Following The Patient has indicated that they have no educational or learning abilities that may effect their care.: No Patient Instruction Patient Education: Diagnosis, Treatment Plan, Goals and Safety Precautions Person Taught: Patient Teaching Method: Discussion Response to teaching: Verbalize Understanding and Reinforcement Needed
--- NOTE | 2025-01-23 15:12 | HP.SP.DC_ITS ---
ST Discharge Summary Discharged: Discharge: The patient participated in OP dysphagia evaluation w/ this SUPERVISOR SOUND TECHNICIAN 01/06/2025 and was recommended for MBSS, which was completed 01/07/2025. MBSS revealed mild-moderate oropharyngeal dysphagia and esophageal dysphagia. The study recommended Easy to Chew textures / Thin liquids w/ strategies to decrease risk for aspiration. Pt was also recommended for GI consult from MBSS, as well as neurology consult due to complaints of chronic unilateral body weakness since the time of her cancer treatments. Pt declined GI and neurology consults, but was agreeable to attend 1 follow up dysphagia treatment session for further instruction in home exercise program and strategies to decrease risk for aspiration. She declined scheduling additional visits. POC was left open for 2 weeks and pt has not returned for additional therapy. Will discharge the patient from ST at this time. Please re-consult if concern for worsening swallow function or need for re-instruction in home exercise program and strategies to decrease risk for aspiration.
== END 2025-01-09 19:00 | disposition home or self-care (01) ==
LOC: SP 11:00
PROVIDERS: PCP Family Medicine; Referring Provider Student in an Organized Health Care Education/Training Program; Visit Provider Student in an Organized Health Care Education/Training Program
DX: R13.10 Dysphagia, unspecified (principal)
CPT/HCPCS: 92526; 92610

== ENCOUNTER → 2025-01-14 | Outpatient (CLI) | payer MEDICARE, MEDICAID, SELFPAY ==
[2025-01-14 15:28] LABS: Hematocrit 37.1 % (37-47); Hemoglobin 12.5 g/dL (12.0-15.0); Immature Granulocytes Count 0.010 X10^3/uL (0.0-0.0); Mean Corp Hgb Conc 33.7 g/dL (32-36); Mean Corpuscular Volume 88.3 fL (81-99); Mean Platelet Vol. 9.9 fl (6.2-12.0); NRBC Flagged by Analyzer 0 % (0-5); Platelet Count 272 K/mm3 (150-450); RBC Distribution Width CV 11.9 % (11.6-14.6); RBC Distribution Width SD 38.2 fl (35.1-43.9); Red Blood Count 4.20 M/mm3 (4.2-5.4); White Blood Count 5.5 K/mm3 (4.4-11.0)
[2025-01-14 16:14] LABS: Ferritin 208 ng/mL (22-378); Iron 30 ug/dL (50-170); Vitamin B12 201 pg/mL (180-914)
== END | disposition home or self-care (01) ==
LOC: BFHLAB 11:54
PROVIDERS: PCP Family Medicine; Visit Provider Family Medicine
DX: E03.9 Hypothyroidism, unspecified (principal); R53.83 Other fatigue; E61.1 Iron deficiency
CPT/HCPCS: 36415; 82607; 82728; 83540; 84439; 84443; 85025